=== PATIENT | male | born 1940 | race Caucasian/White ===

== ENCOUNTER 2022-04-10 09:47 | Outpatient (CLI) | payer MEDICARE, BC, SELFPAY ==
[2022-04-10 14:55] LABS: Chloride* 103 mmol/L (96-114); Potassium* 4.4 mmol/L (3.6-5.1); Sodium* 139 mmol/L (135-149)
[2022-04-10 14:58] LABS: Blood Urea Nitrogen* 17 mg/dL (7-30); Carbon Dioxide* 25 mmol/L (20-32); Creatinine* 1.1 mg/dL (0.5-1.5); Estimated Glomerular Filt Rate 67 ml/min; Glucose* 165 mg/dL (60-115)
[2022-04-10 15:28] LABS: PSA Diagnostic* < 0.06 ng/mL (0.10-4.00)
== END 2022-04-10 09:48 | disposition home or self-care (01) ==
PROVIDERS: PCP Family Medicine; Visit Provider Family Medicine
DX: E11.9 Type 2 diabetes mellitus without complications (principal); C61 Malignant neoplasm of prostate; I10 Essential (primary) hypertension
CPT/HCPCS: 80048; 84153

== ENCOUNTER 2022-08-02 17:32 | Inpatient (IN) | payer MEDICARE, BC, SELFPAY ==
[2022-08-02 17:47] VITALS: BP 142/78; PULSE 104; RESP 16; TEMP 36.9; O2SAT 95; BMI 28.4
--- NOTE | 2022-08-02 18:09 | CRLHL7_ITS ---
For Patients: As a result of the Century Cures Act, medical imaging exams and procedure reports are released immediately into your electronic medical record. You may view this report before your referring provider. If you have questions, please contact your health care provider. INDICATION: Diffuse abdominal pain. TECHNIQUE: CT abdomen and pelvis without contrast. COMPARISON: January 24, 2019. FINDINGS: Lower chest: Right basilar granuloma. Scattered dependent atelectasis. Partial visualization of coronary artery calcifications. Liver: Normal in size and attenuation. No suspicious masses. Gallbladder and bile ducts: Cholecystectomy. Pancreas: Splenic calcifications. No mass or inflammation. Spleen: Normal in size. No masses. Adrenal glands: Normal in size. No nodules. Kidneys: Normal in size. No suspicious masses, stones, or hydronephrosis. GI tract: Focal dilated loops of small bowel in the left upper quadrant, without definite transition point. Colonic diverticulosis without diverticulitis. Vasculature: Moderate aortoiliac arterial calcifications. Abdominal aorta is normal in caliber. Lymph nodes: No lymphadenopathy. Peritoneum/Abdominal Wall: Unremarkable. No sign of mass or infiltration. No free air or significant free fluid. Pelvis: Prostatectomy. Mildly distended bladder. Bones: Degenerative changes of the osseous structures, including the spine. IMPRESSION: Focal dilated loops of small bowel in the left upper quadrant, which may represent low greater developing partial small bowel obstruction. No pneumatosis or free intraperitoneal air. Please note that all CT scans at this facility use dose modulation, iterative reconstruction, and/or weight-based dosing when appropriate to reduce radiation dose to as low as reasonably achievable. Dictated by Shashank Khoury MD @ 08/02/2022 6:59:05 PM (Electronically Signed)
--- NOTE | 2022-08-02 18:11 | ED_ITS ---
HPI - General Adult General Chief complaint: Nausea/Vomiting Stated complaint: Vomiting since yesterday Time Seen by Provider: 08/02/22 17:51 Source: patient Mode of arrival: ambulatory Limitations: no limitations History of Present Illness HPI narrative: 82 year male coming in today complaining of vomiting abdominal discomfort that started yesterday. He states that he had leftovers for lunch and started feeling not well after that. Diffuse abdominal discomfort started in the afternoon. He denies any fevers or chills. He went to bed that night at around 2:00 a.m. in the morning had to get up and vomit. He had 1 small bowel movement at that time as well. This morning he vomited 2 more times and this afternoon vomited again. He has not had anything to eat today. He states that his vomitus is dark brown in color and has a very strong odor. He had another small bowel movement today. States that he is passing gas. He states that the abdominal discomfort has subsided some. He denies any urinary frequency, urgency or dysuria. He denies any chest pain or shortness of breath. He does not feel bloated. Patient states he has had multiple intra-abdominal operations in the past including a cholecystectomy, appendectomy, hernia repair, abdominal prostatectomy and lysis of adhesions which were causing bowel obstructions. Related Data Home Medications Medication Instructions Recorded Confirmed fluorouracil 5 % topical cream 1 applic topical .COMPLEX 03/14/22 08/02/22 atenolol 50 mg-chlorthalidone 25 1 tab PO DAILY 04/10/22 08/02/22 mg tablet cholecalciferol (vitamin D3) 25 25 mcg PO DAILY 04/10/22 08/02/22 mcg (1,000 unit) tablet eszopiclone 2 mg tablet 2 mg PO .Bedtime as needed PRN 04/10/22 08/02/22 ibuprofen-diphenhydramine citrate 2 cap PO .Bedtime as needed PRN 04/10/22 08/02/22 200 mg-38 mg tablet lidocaine 5 % topical patch 5 patch topical .Daily as needed 04/10/22 08/02/22 PRN losartan 100 mg tablet 100 mg PO DAILY 04/10/22 08/02/22 magnesium oxide 400 mg (241.3 mg 400 mg PO .2 X Week 04/10/22 08/02/22 magnesium) tablet melatonin 5 mg tablet 5 mg PO HS PRN 04/10/22 08/03/22 metformin 500 mg tablet,extended 500 mg PO .DAILYWM 04/10/22 08/03/22 release 24 hr multivitamin 1 tab PO DAILY 04/10/22 08/03/22 simvastatin 20 mg tablet 20 mg PO HS 04/10/22 08/03/22 amlodipine 2.5 mg tablet 2.5 mg PO HS 08/03/22 08/03/22 chlorpromazine 25 mg tablet 25 - 50 mg PO Q6H PRN 08/03/22 08/03/22 insulin glargine 100 unit/mL (3 58 - 65 unit subcut HS 08/03/22 08/03/22 mL) subcutaneous pen Previous Rx's Medication Instructions Recorded blood sugar diagnostic (Accu-Chek #100 ea 07/18/22 Guide test strips) Allergies Allergy/AdvReac Type Severity Reaction Status Date / Time Cat hair extract Allergy Unknown Uncoded 04/10/22 09:20 Review of Systems Status of ROS: Reports: 10 or more systems reviewed and unremarkable except as noted in History and below PFSH [facility] Medical History History of basal cell carcinoma (BCC) (2016) History of malignant melanoma (1987) History of Mohs micrographic surgery for skin cancer History of squamous cell carcinoma Surgical History (Updated 08/03/22 @ 21:38 by Bolivar Feliz MD) History of abdominal prostatectomy (12/07/09) History of appendectomy History of arthroscopy of left knee (12/10/13) History of bunionectomy of left great toe (09/05/11) History of cataract extraction History of cholecystectomy (06/09/04) History of colectomy History of hernia repair (08/15/92) History of tonsillectomy Family History Mother Malignant melanoma Social History Narrative: Gastroenteritis Highest level of school completed/degree received: Bachelor's degree Smoking Status: Never smoker How often do you have a drink containing alcohol: 2-3 times a week Alcohol type: wine Alcohol type details: 1 glass of wine 2 times a week How many standard drinks containing alcohol do you have on a typical day: 1 or 2 AUDIT-C Alcohol total score: 3 Non-prescribed substance use: denies use Caffeine: Yes (coffee) service: No Exam Narrative: Exam Narrative: Well-nourished well-developed patient in no acute distress. Alert and oriented. Answers questions appropriately. Mood and affect are appropriate. Thoughts are goal oriented and rational. No tangential or magical thinking noted. Patient speaks in full sentences without needing to catch their breath. HEENT: Normocephalic atraumatic. Pupils are equally round reactive to light. Extraocular muscles are intact. Conjunctivae are moist without any icterus noted. Slightly dry mucous membranes. Posterior pharynx is normal. Neck is soft without any lymphadenopathy or thyromegaly. No masses are appreciated. Cardiovascular: Heart is regular rate and rhythm S1 and S2 are present without any murmurs. Lungs: Clear to auscultation bilaterally no wheezes rhonchi or rales are appreciated. Patient takes deep breaths without any discomfort. Abdomen: Soft and protuberant with normal bowel sounds. No guarding or rebound tenderness. He has very mild diffuse tenderness that does not localize. Extremities: Bilateral lower extremities are without edema. Normal DP and PT pulses. Skin: Well perfused without any obvious rashes. Const: Vital Signs, click to edit/add: Vital Signs - 24 hr 08/02/22 17:47 Temperature 98.4 F Pulse Rate [Pulse Oximeter] 104 H Respiratory Rate 16 Blood Pressure [Ri ght Upper Arm] 142/78 H Pulse Oximetry 95 Oxygen Delivery Me thod Room Air Course Course Hospital Course: IV was established and IV fluids were initiated. Abdominal CT was ordered showing partial small bowel obstruction. Labs pending. Consulted Dr. Hernandez recommended an NG tube. We also called all available hospitals to find a bed for him and there are no open beds. Therefore patient will remain in the ER until further notice. Care transferred to oncoming physician. Vital Signs Vital signs: Initial Vital Signs Temperature 98.4 F 08/02/22 17:47 Temperature Source Temporal Artery Scan 08/02/22 17:47 Pulse Rate 104 H 08/02/22 17:47 Respiratory Rate 16 08/02/22 17:47 Blood Pressure 142/78 H 08/02/22 17:47 Blood Pressure Mean 99 08/02/22 17:47 Blood Pressure Position Sitting 08/02/22 17:47 Pulse Oximetry 95 08/02/22 17:47 Oxygen Delivery Method 08/02/22 17:47 Vital Signs Temperature 98.4 F 08/02/22 17:47 Pulse Rate 104 H 08/02/22 17:47 Respiratory Rate 16 08/02/22 17:47 Blood Pressure 142/78 H 08/02/22 17:47 Pulse Oximetry 95 08/02/22 17:47 Oxygen Delivery Method 08/02/22 17:47 Temperature 98.3 F 08/05/22 03:00 Pulse Rate 69 08/05/22 03:00 Respiratory Rate 20 08/05/22 03:00 Blood Pressure 142/61 H 08/05/22 03:00 Pulse Oximetry 94 08/05/22 03:00 Oxygen Delivery Method 08/05/22 03:00 Medical Decision Making Lab Data Labs: Lab Results 08/02/22 08/02/22 08/02/22 Range/Units 18:09 18:30 18:30 WBC 16.73 H (4.50-11.00) K/uL RBC 5.02 (4.30-5.90) m/uL Hgb 15.8 (13.5-17.5) gm/dL Hct 46.1 (37.0-53.0) % MCV 92 (80-100) fL MCH 32 (26-34) pg MCHC 34 (32-36) gm/dL RDW Coeff of Javier 12.7 (11.5-15.5) % Plt Count 340 (140-440) K/uL Neut % (Auto) 85.0 H (42.0-72.0) % Lymph % (Auto) 7.3 L (20-44) % [place] % (Auto) 7.5 (0.0-11.0) % Eos % (Auto) 0.0 (0.0-7.0) % Baso % (Auto) 0.1 (0.0-3.0) % Neut # (Auto) 14.20 H (1.7-7.0) K/uL Lymph # (Auto) 1.20 (0.90-2.90) K/uL [place] # (Auto) 1.30 H (0.00-0.90) K/UL Eos # (Auto) 0.00 (0.00-0.50) K/uL Baso # (Auto) 0.00 (0.00-0.30) K/uL Abs Immat Gran (auto) 0.00 (0.00-0.30) K/uL Imm/Tot Granulo (auto) 0.1 % ESR (2-15) mm/hr Sodium 139 (135-149) mmol/L Potassium 4.1 (3.6-5.1) mmol/L Chloride 103 (96-114) mmol/L Carbon Dioxide 24 (20-32) mmol/L BUN 24 (7-30) mg/dL Creatinine 1.1 (0.5-1.5) mg/dL Estimated Creat Clear 58.51 Estimated GFR 67 ml/min Glucose 220 H (60-115) mg/dL Lactate (0.5-1.9) mmol/L Calcium 9.0 (8.4-10.6) mg/dL Total Bilirubin (0.1-1.5) mg/dL Direct Bilirubin (0.0-0.5) mg/dL AST (12-35) U/L ALT (4-50) U/L Alkaline Phosphatase (40-150) U/L Troponin I (0.01-0.04) ng/mL C-Reactive Protein 0.6 (0.5-1.0) mg/dL Total Protein (6.0-8.3) g/dL Albumin (3.3-5.0) g/dL Lipase (23-300) U/L Urine Color (Yellow) Urine Appearance (Clear) Urine pH (5.0-8.5) Ur Specific [place] (1.000-1.030) Urine Protein (Negative) Urine Glucose (UA) (Negative) Urine Ketones (Negative) Urine Blood (Negative) Urine Nitrite (Negative) Urine Bilirubin (Negative) Urine Urobilinogen (0.2-1.0) Ur Leukocyte Esterase (Negative) Urine RBC (0-2) Urine WBC (0-5) Ur Squamous Epith Cells (None-Few) Urine Bacteria (None) SARS-CoV-2 (PCR) Negative SARS-CoV-2 (Negative) 08/02/22 08/02/22 08/02/22 Range/Units 18:30 18:30 18:30 WBC (4.50-11.00) K/uL RBC (4.30-5.90) m/uL Hgb (13.5-17.5) gm/dL Hct (37.0-53.0) % MCV (80-100) fL MCH (26-34) pg MCHC (32-36) gm/dL RDW Coeff of Javier (11.5-15.5) % Plt Count (140-440) K/uL Neut % (Auto) (42.0-72.0) % Lymph % (Auto) (20-44) % [place] % (Auto) (0.0-11.0) % Eos % (Auto) (0.0-7.0) % Baso % (Auto) (0.0-3.0) % Neut # (Auto) (1.7-7.0) K/uL Lymph # (Auto) (0.90-2.90) K/uL [place] # (Auto) (0.00-0.90) K/UL Eos # (Auto) (0.00-0.50) K/uL Baso # (Auto) (0.00-0.30) K/uL Abs Immat Gran (auto) (0.00-0.30) K/uL Imm/Tot Granulo (auto) % ESR 7 (2-15) mm/hr Sodium (135-149) mmol/L Potassium (3.6-5.1) mmol/L Chloride (96-114) mmol/L Carbon Dioxide (20-32) mmol/L BUN (7-30) mg/dL Creatinine (0.5-1.5) mg/dL Estimated Creat Clear Estimated GFR ml/min Glucose (60-115) mg/dL Lactate 4.0 H (0.5-1.9) mmol/L Calcium (8.4-10.6) mg/dL Total Bilirubin 1.3 (0.1-1.5) mg/dL Direct Bilirubin 0.0 (0.0-0.5) mg/dL AST 38 H (12-35) U/L ALT 40 (4-50) U/L Alkaline Phosphatase 69 (40-150) U/L Troponin I 0.02 (0.01-0.04) ng/mL C-Reactive Protein (0.5-1.0) mg/dL Total Protein 7.2 (6.0-8.3) g/dL Albumin 4.4 (3.3-5.0) g/dL Lipase 42 (23-300) U/L Urine Color (Yellow) Urine Appearance (Clear) Urine pH (5.0-8.5) Ur Specific [place] (1.000-1.030) Urine Protein (Negative) Urine Glucose (UA) (Negative) Urine Ketones (Negative) Urine Blood (Negative) Urine Nitrite (Negative) Urine Bilirubin (Negative) Urine Urobilinogen (0.2-1.0) Ur Leukocyte Esterase (Negative) Urine RBC (0-2) Urine WBC (0-5) Ur Squamous Epith Cells (None-Few) Urine Bacteria (None) SARS-CoV-2 (PCR) (Negative) 08/03/22 08/03/22 08/03/22 Range/Units 01:50 06:14 06:14 WBC 13.27 H (4.50-11.00) K/uL RBC 4.67 (4.30-5.90) m/uL Hgb 14.6 (13.5-17.5) gm/dL Hct 43.8 (37.0-53.0) % MCV 94 (80-100) fL MCH 31 (26-34) pg MCHC 33 (32-36) gm/dL RDW Coeff of Javier 12.9 (11.5-15.5) % Plt Count 310 (140-440) K/uL Neut % (Auto) 74.0 H (42.0-72.0) % Lymph % (Auto) 14.5 L (20-44) % [place] % (Auto) 10.6 (0.0-11.0) % Eos % (Auto) 0.5 (0.0-7.0) % Baso % (Auto) 0.2 (0.0-3.0) % Neut # (Auto) 9.80 H (1.7-7.0) K/uL Lymph # (Auto) 1.90 (0.90-2.90) K/uL [place] # (Auto) 1.40 H (0.00-0.90) K/UL Eos # (Auto) 0.10 (0.00-0.50) K/uL Baso # (Auto) 0.00 (0.00-0.30) K/uL Abs Immat Gran (auto) 0.00 (0.00-0.30) K/uL Imm/Tot Granulo (auto) 0.2 % ESR (2-15) mm/hr Sodium 141 (135-149) mmol/L Potassium 4.1 (3.6-5.1) mmol/L Chloride 107 (96-114) mmol/L Carbon Dioxide 24 (20-32) mmol/L BUN 23 (7-30) mg/dL Creatinine 1.1 (0.5-1.5) mg/dL Estimated Creat Clear 58.51 Estimated GFR 67 ml/min Glucose 173 H (60-115) mg/dL Lactate (0.5-1.9) mmol/L Calcium 8.9 (8.4-10.6) mg/dL Total Bilirubin (0.1-1.5) mg/dL Direct Bilirubin (0.0-0.5) mg/dL AST (12-35) U/L ALT (4-50) U/L Alkaline Phosphatase (40-150) U/L Troponin I (0.01-0.04) ng/mL C-Reactive Protein (0.5-1.0) mg/dL Total Protein (6.0-8.3) g/dL Albumin (3.3-5.0) g/dL Lipase (23-300) U/L Urine Color Yellow (Yellow) Urine Appearance Clear (Clear) Urine pH 5.5 (5.0-8.5) Ur Specific [place] 1.025 (1.000-1.030) Urine Protein 1+ A (Negative) Urine Glucose (UA) Negative (Negative) Urine Ketones 1+ A (Negative) Urine Blood Negative (Negative) Urine Nitrite Negative (Negative) Urine Bilirubin Negative (Negative) Urine Urobilinogen 0.2 (0.2-1.0) Ur Leukocyte Esterase Negative (Negative) Urine RBC 0-2 (0-2) Urine WBC 0-2 (0-5) Ur Squamous Epith Cells None (None-Few) Urine Bacteria Few A (None) SARS-CoV-2 (PCR) (Negative) 08/03/22 Range/Units 06:14 WBC (4.50-11.00) K/uL RBC (4.30-5.90) m/uL Hgb (13.5-17.5) gm/dL Hct (37.0-53.0) % MCV (80-100) fL MCH (26-34) pg MCHC (32-36) gm/dL RDW Coeff of Javier (11.5-15.5) % Plt Count (140-440) K/uL Neut % (Auto) (42.0-72.0) % Lymph % (Auto) (20-44) % [place] % (Auto) (0.0-11.0) % Eos % (Auto) (0.0-7.0) % Baso % (Auto) (0.0-3.0) % Neut # (Auto) (1.7-7.0) K/uL Lymph # (Auto) (0.90-2.90) K/uL [place] # (Auto) (0.00-0.90) K/UL Eos # (Auto) (0.00-0.50) K/uL Baso # (Auto) (0.00-0.30) K/uL Abs Immat Gran (auto) (0.00-0.30) K/uL Imm/Tot Granulo (auto) % ESR (2-15) mm/hr Sodium (135-149) mmol/L Potassium (3.6-5.1) mmol/L Chloride (96-114) mmol/L Carbon Dioxide (20-32) mmol/L BUN (7-30) mg/dL Creatinine (0.5-1.5) mg/dL Estimated Creat Clear Estimated GFR ml/min Glucose (60-115) mg/dL Lactate 2.2 H (0.5-1.9) mmol/L Calcium (8.4-10.6) mg/dL Total Bilirubin (0.1-1.5) mg/dL Direct Bilirubin (0.0-0.5) mg/dL AST (12-35) U/L ALT (4-50) U/L Alkaline Phosphatase (40-150) U/L Troponin I (0.01-0.04) ng/mL C-Reactive Protein (0.5-1.0) mg/dL Total Protein (6.0-8.3) g/dL Albumin (3.3-5.0) g/dL Lipase (23-300) U/L Urine Color (Yellow) Urine Appearance (Clear) Urine pH (5.0-8.5) Ur Specific [place] (1.000-1.030) Urine Protein (Negative) Urine Glucose (UA) (Negative) Urine Ketones (Negative) Urine Blood (Negative) Urine Nitrite (Negative) Urine Bilirubin (Negative) Urine Urobilinogen (0.2-1.0) Ur Leukocyte Esterase (Negative) Urine RBC (0-2) Urine WBC (0-5) Ur Squamous Epith Cells (None-Few) Urine Bacteria (None) SARS-CoV-2 (PCR) (Negative) Imaging Data CT scan - abdomen: Attestation: I have reviewed the pertinent imaging results. Radiologist's impression: CT abdomen and pelvis without contrast. COMPARISON: January 24, 2019. FINDINGS: Lower chest: Right basilar granuloma. Scattered dependent atelectasis. Partial visualization of coronary artery calcifications. Liver: Normal in size and attenuation. No suspicious masses. Gallbladder and bile ducts: Cholecystectomy. Pancreas: Splenic calcifications. No mass or inflammation. Spleen: Normal in size. No masses. Adrenal glands: Normal in size. No nodules. Kidneys: Normal in size. No suspicious masses, stones, or hydronephrosis. GI tract: Focal dilated loops of small bowel in the left upper quadrant, without definite transition point. Colonic diverticulosis without diverticulitis. Vasculature: Moderate aortoiliac arterial calcifications. Abdominal aorta is normal in caliber. Lymph nodes: No lymphadenopathy. Peritoneum/Abdominal Wall: Unremarkable. No sign of mass or infiltration. No free air or significant free fluid. Pelvis: Prostatectomy. Mildly distended bladder. Bones: Degenerative changes of the osseous structures, including the spine. IMPRESSION: Focal dilated loops of small bowel in the left upper quadrant, which may represent low greater developing partial small bowel obstruction. No pneumatosis or free intraperitoneal air. Discharge Plan Discharge Clinical Impression: Partial obstruction of small intestine Prescriptions: No Action simvastatin 20 mg tablet 20 mg PO HS losartan 100 mg tablet 100 mg PO DAILY eszopiclone 2 mg tablet 2 mg PO .Bedtime as needed PRN magnesium oxide 400 mg (241.3 mg magnesium) tablet 400 mg PO .2 X Week multivitamin Tablet 1 tab PO DAILY metformin 500 mg tablet extended release 24 hr 500 mg PO .DAILYWM atenolol-chlorthalidone 50-25 mg tablet 1 tab PO DAILY lidocaine 5 % adhesive patch,medicated 5 patch topical .Daily as needed PRN cholecalciferol (vitamin D3) 25 mcg (1,000 unit) tablet 25 mcg PO DAILY melatonin 5 mg tablet 5 mg PO HS PRN ibuprofen-diphenhydramine cit 200-38 mg tablet 2 cap PO .Bedtime as needed PRN amlodipine 2.5 mg tablet 2.5 mg PO HS Rx Instructions: take at night insulin glargine 100 unit/mL (3 mL) insulin pen 58 - 65 unit subcut HS chlorpromazine 25 mg tablet 25 - 50 mg PO Q6H PRN fluorouracil 5 % cream 1 applic topical .COMPLEX Rx Instructions: 1 applic topical twice a week; (DME) Accu-Chek Guide test strips Strip See Rx Instructions .Route Qty: 100 8RF Rx Instructions: Test blood sugar twice daily Follow Up/Referrals: Merrill Mejia MD [Primary Care Provider] -
[2022-08-02 18:49] LABS: Basophils Percent Auto 0.1 % (0.0-3.0); Hematocrit 46.1 % (37.0-53.0); Hemoglobin* 15.8 gm/dL (13.5-17.5); Immature Granulocytes Pct Auto 0.1 %; Lymphocytes Percent Auto 7.3 % (20-44); Mean Corpuscular HGB Conc 34 gm/dL (32-36); Mean Corpuscular Hemoglobin 32 pg (26-34); Mean Corpuscular Volume 92 fL (80-100); Monocytes Percent Auto 7.5 % (0.0-11.0); Platelet Count* 340 K/uL (140-440); RDW Coefficient of Variation % 12.7 % (11.5-15.5); Red Blood Count 5.02 m/uL (4.30-5.90); Slide Review Reflex No; White Blood Count* 16.73 K/uL (4.50-11.00)
[2022-08-02] MEDS: ONDANSETRON 2 MG/ML inj 4 MG IVP (18:53)
[2022-08-02] MEDS: 0.9 % SODIUM CHLORIDE 1000 ml 1,000 ML IV (18:53)
[2022-08-02 18:58] LABS: Albumin* 4.4 g/dL (3.3-5.0)
[2022-08-02 19:01] LABS: Alanine Aminotransferase* 40 U/L (4-50); Alkaline Phosphatase* 69 U/L (40-150); Aspartate Amino Transferase* 38 U/L (12-35); Bilirubin Total* 1.3 mg/dL (0.1-1.5); Lipase* 42 U/L (23-300); Total Protein* 7.2 g/dL (6.0-8.3)
[2022-08-02 19:13] LABS: Troponin I* 0.02 ng/mL (0.01-0.04)
[2022-08-02 19:48] LABS: Chloride* 103 mmol/L (96-114)
[2022-08-02 19:49] LABS: Potassium* 4.1 mmol/L (3.6-5.1); Sodium* 139 mmol/L (135-149)
[2022-08-02 19:49] LABS: SARS PCR* Negative SARS-CoV-2 (Negative)
[2022-08-02 19:51] LABS: Creatinine* 1.1 mg/dL (0.5-1.5); Est. Creatinine Clearance* 58.51; Estimated Glomerular Filt Rate 67 ml/min
[2022-08-02 19:52] LABS: Blood Urea Nitrogen* 24 mg/dL (7-30); Carbon Dioxide* 24 mmol/L (20-32); Glucose* 220 mg/dL (60-115)
[2022-08-02 19:55] LABS: C Reactive Protein* 0.6 mg/dL (0.5-1.0)
[2022-08-02 20:43] LABS: Erythrocyte SedimentationRate* 7 mm/hr (2-15)
--- NOTE | 2022-08-02 21:23 | ED.NURSE ---
Patient refuses NG insertion at this time. Reports previous bad experiences with them before. Patient also inquired about home lantus. Took FSG and is 178, MD does not want to dose with insulin at this time.
[2022-08-03] VITALS (9 sets, daily range): BP systolic 113–168; BP diastolic 51–93; PULSE 68–96; RESP 16–20; TEMP 36.6–37; O2SAT 94–98; BMI 28.6
--- NOTE | 2022-08-03 01:53 | ED.NURSE ---
report to med surg, pt transported via [facility] to [facility]
[2022-08-03 02:09] LABS: Appearance Urine Clear (Clear); Bilirubin Urine Negative (Negative); Blood Urine Negative (Negative); Color Urine Yellow (Yellow); Glucose Urine Negative (Negative); Ketones Urine 1+ (Negative); Leukocyte Esterase Urine Negative (Negative); Nitrite Urine Negative (Negative); Protein Urine 1+ (Negative); Specific Gravity Urine 1.025 (1.000-1.030); Urobilinogen Urine 0.2 (0.2-1.0); pH Urine 5.5 (5.0-8.5)
[2022-08-03 02:56] LABS: Bacteria Urine Few; RBC Urine 0-2 (0-2); WBC Urine 0-2 (0-5)
--- NOTE | 2022-08-03 02:59 | PM.IMCN1 ---
Date of Consult Consult date: 08/03/22 Primary Care Provider: Merrill Mejia MD Consult Narrative Narrative: [facility] Hospitalist ADMISSION SUPPORT NOTE eHospitalist was contacted by Dr. Rhoades with request of admission support. Chief complaint: Nausea, vomiting and abdominal pain HPI: The patient reports that on Saturday after he had lunch he got home that evening and then started having abdominal pain. He went to bed and then started having vomiting and nausea. He did have a bowel movement that evening. his vomiting continued and was intermittent throughout the day but was brown-colored. He called his PCPs office and staff suggested waiting to see if his symptoms improve or coming in for evaluation. He decided to come into the ED. He reports that his vomiting is improved and so was his abdominal pain which has been periumbilical. Review of systems other mention above is negative. Home Medications/Pertinent Medical History/Pertinent Social History: Reviewed see EMR for details PFSH PFS Medical History History of basal cell carcinoma (BCC) (2016) History of malignant melanoma (1987) History of Mohs micrographic surgery for skin cancer History of squamous cell carcinoma Surgical History History of abdominal prostatectomy (12/07/09) History of appendectomy History of arthroscopy of left knee (12/10/13) History of bunionectomy of left great toe (09/05/11) History of cataract extraction History of cholecystectomy (06/09/04) History of colectomy History of hernia repair (08/15/92) History of tonsillectomy Family History Mother Malignant melanoma Social History Narrative: Gastroenteritis Highest level of school completed/degree received: Bachelor's degree Smoking Status: Never smoker How often do you have a drink containing alcohol: 2-3 times a week Alcohol type: wine Alcohol type details: 1 glass of wine 2 times a week How many standard drinks containing alcohol do you have on a typical day: 1 or 2 AUDIT-C Alcohol total score: 3 Non-prescribed substance use: denies use Caffeine: Yes (coffee) service: No Meds Home Medications and Allergies Home Medications Medication Instructions Recorded Confirmed Type fluorouracil 5 % topical cream 1 applic topical .COMPLEX 03/14/22 08/02/22 History atenolol 50 mg-chlorthalidone 25 1 tab PO DAILY 04/10/22 08/02/22 History mg tablet cholecalciferol (vitamin D3) 25 25 mcg PO DAILY 04/10/22 08/02/22 History mcg (1,000 unit) tablet clindamycin phosphate 1 % lotion 1 applic topical PRN 04/10/22 04/10/22 History eszopiclone 2 mg tablet 2 mg PO .Bedtime as needed PRN 04/10/22 08/02/22 History ibuprofen-diphenhydramine citrate 2 cap PO .Bedtime as needed PRN 04/10/22 08/02/22 History 200 mg-38 mg tablet lidocaine 5 % topical patch 5 patch topical .Daily as needed 04/10/22 08/02/22 History PRN losartan 100 mg tablet 100 mg PO DAILY 04/10/22 08/02/22 History magnesium oxide 400 mg (241.3 mg 400 mg PO .2 X Week 04/10/22 08/02/22 History magnesium) tablet melatonin 5 mg tablet 5 mg PO .Bedtime as needed PRN 04/10/22 08/02/22 History metformin 500 mg tablet,extended 500 mg PO .Daily With Am Meal 04/10/22 08/02/22 History release 24 hr multivitamin 1 tab PO QDAY 04/10/22 08/02/22 History mupirocin 2 % topical ointment 1 applic topical PRN 04/10/22 04/10/22 History simvastatin 20 mg tablet 20 mg PO .Bedtime 04/10/22 08/02/22 History Allergies Allergy/AdvReac Type Severity Reaction Status Date / Time Cat hair extract Allergy Unknown Uncoded 04/10/22 09:20 Exam Narrative: Exam Narrative: Exam (performed via interactive video with assistance of bedside nurse): General: Alert, cooperative, no acute distress HEENT: Oral mucosa pink and moist without erythema Lungs: Clear to auscultation bilaterally without crackle or wheeze CV: Regular rate and rhythm without loud murmur rub or gallop Abd: Bowel sounds hypoactive, currently denies tenderness and does not exhibit signs of pain with palpation done by bedside nurse, soft, scars consistent with past surgical history Skin: No rashes, bruises or lesions appreciated on gross visualization of exposed skin Neuro: Alert, oriented x 3. CN III -VII, XI, XII grossly intact, moves all extremities without any significant focal deficit appreciated Const: Vital Signs, click to edit/add: Vital Signs - 24 hr 08/02/22 17:47 08/03/22 00:00 08/03/22 02:04 Temperature 98.4 F 98.6 F Pulse Rate [Pulse Oximeter] 104 H 94 Respiratory Rate 16 20 Blood Pressure [Le ft Arm] 168/93 H Blood Pressure [Ri ght Upper Arm] 142/78 H Pulse Oximetry 95 98 95 Oxygen Delivery Me thod Room Air Room Air Labs Labs: Short CBC 08/02/22 Range/Units 18:30 WBC 16.73 H (4.50-11.00) K/uL Hgb 15.8 (13.5-17.5) gm/dL Hct 46.1 (37.0-53.0) % Plt Count 340 (140-440) K/uL BMP 08/02/22 18:30 Sodium 139 Potassium 4.1 Chloride 103 Carbon Dioxide 24 BUN 24 Creatinine 1.1 Glucose 220 H Calcium 9.0 Cardiac Enzymes 08/02/22 Range/Units 18:30 Troponin I 0.02 (0.01-0.04) ng/mL Liver Function 08/02/22 Range/Units 18:30 Total Bilirubin 1.3 (0.1-1.5) mg/dL Direct Bilirubin 0.0 (0.0-0.5) mg/dL AST 38 H (12-35) U/L ALT 40 (4-50) U/L Alkaline Phosphatase 69 (40-150) U/L Albumin 4.4 (3.3-5.0) g/dL Urine 08/03/22 Range/Units 01:50 Urine Color Yellow (Yellow) Urine Appearance Clear (Clear) Urine pH 5.5 (5.0-8.5) Ur Specific [place] 1.025 (1.000-1.030) Urine Protein 1+ A (Negative) Urine Glucose (UA) Negative (Negative) Assessment and Plan Assessment and plan (1) Partial obstruction of small intestine: Status: Acute Plan CT scan of abdomen and pelvis: Reviewed see EMR for details Assessment and Plan: 1. Partial small bowel obstruction-supportive care. Patient refused NG tube. I counseled that if his abdominal pain worsens or he develops nausea and vomiting again then he should have NG tube placed at that time. Pain control with fentanyl. 2. Leukocytosis-May be secondary to stress response. No signs or symptoms of active infection. Monitor 3. DM2-sliding scale insulin. Depending on glucose level although n.p.o. he may require some basal long-acting insulin. Will leave for rounding provider to initiate. 4. Elevated lactic acid-trend. Continue IV fluids 5. Hypertension-stable continue atenolol, losartan and amlodipine. Hold chlorthalidone given nausea and vomiting 6. Dyslipidemia-stable on statin 7. DVT prophylaxis-Lovenox 8. CODE STATUS full code discussed with patient Chart review was performed as well as evaluation of the patient via video. Thank you for involving ehospitalist. Please contact [phone] if further assistance is needed.
[2022-08-03] MEDS: 0.9 % SODIUM CHLORIDE 1000 ml 1,000 ML 75 ML IV ×2 (03:49→17:48)
--- NOTE | 2022-08-03 05:10 | PC.NURSE ---
after admission Pt slept remainder of night, rated abdomenal pain 2/10, denies N/V at this time. Pt asking the same questions throughout admission multiple times, and questions answered multiple times.
[2022-08-03 06:45] LABS: Lactate* 2.2 mmol/L (0.5-1.9)
[2022-08-03 06:47] LABS: Basophils Percent Auto 0.2 % (0.0-3.0); Eosinophils Percent Auto 0.5 % (0.0-7.0); Hematocrit 43.8 % (37.0-53.0); Hemoglobin* 14.6 gm/dL (13.5-17.5); Immature Granulocytes Pct Auto 0.2 %; Lymphocytes Percent Auto 14.5 % (20-44); Mean Corpuscular HGB Conc 33 gm/dL (32-36); Mean Corpuscular Hemoglobin 31 pg (26-34); Mean Corpuscular Volume 94 fL (80-100); Monocytes Percent Auto 10.6 % (0.0-11.0); Platelet Count* 310 K/uL (140-440); RDW Coefficient of Variation % 12.9 % (11.5-15.5); Red Blood Count 4.67 m/uL (4.30-5.90); White Blood Count* 13.27 K/uL (4.50-11.00)
[2022-08-03 06:53] LABS: Slide Review Reflex No
[2022-08-03 07:04] LABS: Chloride* 107 mmol/L (96-114); Potassium* 4.1 mmol/L (3.6-5.1); Sodium* 141 mmol/L (135-149)
[2022-08-03 07:07] LABS: Blood Urea Nitrogen* 23 mg/dL (7-30); Calcium* 8.9 mg/dL (8.4-10.6); Carbon Dioxide* 24 mmol/L (20-32); Creatinine* 1.1 mg/dL (0.5-1.5); Est. Creatinine Clearance* 58.51; Estimated Glomerular Filt Rate 67 ml/min; Glucose* 173 mg/dL (60-115)
--- NOTE | 2022-08-03 07:23 | PC.NURSE ---
[id number] Per pt request, please update Yessenia ([phone]) that pt is now on M/S floor, attempted to call this a.m. no answer.
[2022-08-03] MEDS: LOSARTAN POTASSIUM 50 MG TABLET 100 MG PO (08:51)
[2022-08-03] MEDS: atenoloL 50 MG TABLET PO (08:52)
--- NOTE | 2022-08-03 18:55 | PC.NURSE ---
Nursing Care Hours: [id number] Pt this shift calm and cooperative with cares. No c/o pain or nausea. Tolerating small amounts of ice chips. Walked the [place] x2. Void x3, passing gas per pt report, and no BM. Alert and oriented but at times forgetful of what nurse explained is happening next, ie: vital signs or blood glucose check.
[2022-08-03] MEDS: AMLODIPINE 5 MG TABLET 2.5 MG PO (20:15)
[2022-08-03] MEDS: SIMVASTATIN 20 MG TABLET PO (20:15)
--- NOTE | 2022-08-03 21:26 | P.IMHP_ITS ---
Hospitalist- H&P: HPI History of Present Illness Time Seen by Provider: 15:00 Date Seen: 08/03/22 Chief complaint: Vomiting since yesterday Narrative: Ilan Alaniz is a 82 year old man who presented to the emergency department with the greater than 24 hour history of nausea, vomiting, and abdominal pain. Last bowel movement was 2 nights ago. He continued to have brown colored vomitus. Denies hematemesis or coffee-ground emesis. On assessment in the emergency department was found to have a small-bowel obstruction. As a youngster he had multiple small-bowel obstructions. At 1 point he believes he may have had a partial colectomy in association with the same. Since then he has had a few episodes of small-bowel obstructions since. The more recent episodes have resolved without any surgical intervention. Review of Systems Status of ROS: Reports: 10 or more systems reviewed and unremarkable except as noted in History and below Narrative: Denies chest heaviness, pressure, tightness, or pain. Denies dyspnea at rest, dyspnea with exertion, paroxysmal nocturnal dyspnea, or orthopnea. Denies syncope or near-syncope. Since admission to the hospital and treatment with IV fluids analgesics antiemetics his conditions gradually improved. Not tolerating ambulating the halls. Before he was too weak to be able to do so. Denies focal motor neurologic deficits. No recent trauma or injury. No recent travel. No other febrile illnesses. [facility] Medical History History of basal cell carcinoma (BCC) (2016) History of malignant melanoma (1987) History of Mohs micrographic surgery for skin cancer History of squamous cell carcinoma Surgical History (Updated 08/03/22 @ 21:38 by Bolivar Feliz MD) History of abdominal prostatectomy (12/07/09) History of appendectomy History of arthroscopy of left knee (12/10/13) History of bunionectomy of left great toe (09/05/11) History of cataract extraction History of cholecystectomy (06/09/04) History of colectomy History of hernia repair (08/15/92) History of tonsillectomy Family History Mother Malignant melanoma Social History Narrative: Gastroenteritis Highest level of school completed/degree received: Bachelor's degree Smoking Status: Never smoker How often do you have a drink containing alcohol: 2-3 times a week Alcohol type: wine Alcohol type details: 1 glass of wine 2 times a week How many standard drinks containing alcohol do you have on a typical day: 1 or 2 AUDIT-C Alcohol total score: 3 Non-prescribed substance use: denies use Caffeine: Yes (coffee) service: No Meds Home Medications and Allergies Home Medications Medication Instructions Recorded Confirmed Type fluorouracil 5 % topical cream 1 applic topical .COMPLEX 03/14/22 08/02/22 History atenolol 50 mg-chlorthalidone 25 1 tab PO DAILY 04/10/22 08/02/22 History mg tablet cholecalciferol (vitamin D3) 25 25 mcg PO DAILY 04/10/22 08/02/22 History mcg (1,000 unit) tablet eszopiclone 2 mg tablet 2 mg PO .Bedtime as needed PRN 04/10/22 08/02/22 History ibuprofen-diphenhydramine citrate 2 cap PO .Bedtime as needed PRN 04/10/22 08/02/22 History 200 mg-38 mg tablet lidocaine 5 % topical patch 5 patch topical .Daily as needed 04/10/22 08/02/22 History PRN losartan 100 mg tablet 100 mg PO DAILY 04/10/22 08/02/22 History magnesium oxide 400 mg (241.3 mg 400 mg PO .2 X Week 04/10/22 08/02/22 History magnesium) tablet melatonin 5 mg tablet 5 mg PO HS PRN 04/10/22 08/03/22 History metformin 500 mg tablet,extended 500 mg PO .DAILYWM 04/10/22 08/03/22 History release 24 hr multivitamin 1 tab PO DAILY 04/10/22 08/03/22 History simvastatin 20 mg tablet 20 mg PO HS 04/10/22 08/03/22 History amlodipine 2.5 mg tablet 2.5 mg PO HS 08/03/22 08/03/22 History chlorpromazine 25 mg tablet 25 - 50 mg PO Q6H PRN 08/03/22 08/03/22 History insulin glargine 100 unit/mL (3 58 - 65 unit subcut HS 08/03/22 08/03/22 History mL) subcutaneous pen Allergies Allergy/AdvReac Type Severity Reaction Status Date / Time Cat hair extract Allergy Unknown Uncoded 04/10/22 09:20 Exam Narrative: Exam Narrative: My 1st walk in his room to see him he is sound asleep on his bed. He is easily arouse with my touching his leg in calling his name out. Appears comfortable and in no acute distress. Articulate, cooperative. Friendly. Alert, oriented to self, place, time, situation. Very hard of hearing. This is not new. Moist buccal mucosa. No icterus. Neck is supple. Midline trachea. Normal thyroid. No lymphadenopathy. No JVD or hepatojugular reflux. No carotid bruits. Lungs are clear to auscultation. Heart tones with regular rhythm, normal S1-S2. Abdomen still somewhat distended with active bowel sounds though. Soft, nontender. Extremities without edema. Transfers independently, slowly. Independent with walking. Walks slowly. Const: Vital Signs, click to edit/add: Vital Signs - 24 hr 08/03/22 00:00 08/03/22 02:04 08/03/22 03:00 Temperature 98.6 F 98.6 F Pulse Rate [Pulse Oximeter] 94 94 Respiratory Rate 20 20 Blood Pressure [Le ft Arm] 168/93 H 168/93 H Blood Pressure [Ri ght Arm] Pulse Oximetry 98 95 95 Oxygen Delivery Me thod Room Air Room Air 08/03/22 07:00 08/03/22 07:00 08/03/22 11:00 Temperature 97.9 F 98.6 F Pulse Rate [Pulse Oximeter] 96 96 94 Respiratory Rate 18 18 18 Blood Pressure [Le ft Arm] 119/74 154/83 H Blood Pressure [Ri ght Arm] Pulse Oximetry 96 94 Oxygen Delivery Me thod Room Air Room Air 08/03/22 15:00 08/03/22 15:00 08/03/22 19:00 Temperature 98.6 F 98 F Pulse Rate [Pulse Oximeter] 94 94 72 Respiratory Rate 18 18 16 Blood Pressure [Le ft Arm] 127/65 Blood Pressure [Ri ght Arm] 154/83 H Pulse Oximetry 94 94 Oxygen Delivery Me thod Room Air Room Air Hospitalist - H&P: Result Labs Labs: Short CBC 12/02/22 Range/Units 06:14 WBC 13.27 H (4.50-11.00) K/uL Hgb 14.6 (13.5-17.5) gm/dL Hct 43.8 (37.0-53.0) % Plt Count 310 (140-440) K/uL [facility] 08/03/22 06:14 Sodium 141 Potassium 4.1 Chloride 107 Carbon Dioxide 24 BUN 23 Creatinine 1.1 Glucose 173 H Calcium 8.9 Urine 08/03/22 Range/Units 01:50 Urine Color Yellow (Yellow) Urine Appearance Clear (Clear) Urine pH 5.5 (5.0-8.5) Ur Specific [place] 1.025 (1.000-1.030) Urine Protein 1+ A (Negative) Urine Glucose (UA) Negative (Negative) Imaging CT scan - abdomen: Attestation: I have reviewed the pertinent imaging results. Radiologist's impression: Focal dilated loops of small bowel in the left upper quadrant, which may represent low greater developing partial small bowel obstruction. No pneumatosis or free intraperitoneal air. Assessment and Plan Assessment and plan (1) Partial obstruction of small intestine: Status: Acute (2) Partial small bowel obstruction: Status: Acute (3) History of abdominal prostatectomy: Status: Acute (4) History of appendectomy: Status: Acute (5) History of cholecystectomy: Status: Acute (6) History of colectomy: Status: Acute (7) History of hernia repair: Status: Acute Plan 1. Reviewed impression with patient and . Answered their questions. 2. Admit to the hospital. NPO except for ice chips for now. Advance diet as tolerated. 3. IV fluids, antiemetics p.r.n., analgesics p.r.n.. 4. Already showing signs of improvement. Consider surgical consultation if condition worsens. 5. Would benefit from dietary consultation. We do not have dietitian available for consultation over the weekend. If he is still in the hospital on Saturday will have the dietitian see him in the hospital otherwise in the outpatient setting. 6. Slowly resume his usual medications. 7. Encourage activity. 8. They are agreeable to above stated plans and recommendations.
[2022-08-04 03:00] VITALS: BP 158/73; PULSE 68; RESP 18; TEMP 36.7; O2SAT 94
[2022-08-04] MEDS: 0.9 % SODIUM CHLORIDE 1000 ml 1,000 ML 75 ML IV (05:58)
--- NOTE | 2022-08-04 06:56 | PC.NURSE ---
pleasant and cooperative. SBA to assist with IV pole. Tolerating ice chips. No c/o nausea. Passing flatus per pt. Bowel tones active.
[2022-08-04 07:00] VITALS: BP 147/70; PULSE 64; RESP 18; TEMP 36.7; O2SAT 94
[2022-08-04 07:00] LABS: HCO3 VBG 26 mmol/L (21-28); Lactate* 1.4 mmol/L (0.5-1.9); PCO2 VBG 43 mmHG (40-50); PO2 VBG 51.2 mmHG (25-47); pH VBG 7.392 (7.32-7.43)
[2022-08-04 07:10] LABS: Hemoglobin* 14.2 gm/dL (13.5-17.5); Mean Corpuscular HGB Conc 33 gm/dL (32-36); Mean Corpuscular Hemoglobin 31 pg (26-34); Mean Corpuscular Volume 95 fL (80-100); Platelet Count* 301 K/uL (140-440); Red Blood Count 4.53 m/uL (4.30-5.90); Slide Review Reflex No; White Blood Count* 9.06 K/uL (4.50-11.00)
[2022-08-04 07:27] LABS: Chloride* 111 mmol/L (96-114)
[2022-08-04 07:28] LABS: Albumin* 3.6 g/dL (3.3-5.0); Sodium* 142 mmol/L (135-149)
[2022-08-04 07:29] LABS: Potassium* 4.3 mmol/L (3.6-5.1)
[2022-08-04 07:30] LABS: Creatinine* 1.1 mg/dL (0.5-1.5); Est. Creatinine Clearance* 58.51; Estimated Glomerular Filt Rate 67 ml/min
[2022-08-04 07:31] LABS: Alanine Aminotransferase* 34 U/L (4-50); Alkaline Phosphatase* 54 U/L (40-150); Aspartate Amino Transferase* 33 U/L (12-35); Bilirubin Total* 1.3 mg/dL (0.1-1.5); Blood Urea Nitrogen* 23 mg/dL (7-30); Carbon Dioxide* 24 mmol/L (20-32); Glucose* 140 mg/dL (60-115); Phosphorus* 2.9 mg/dL (2.5-4.5); Total Protein* 6.2 g/dL (6.0-8.3)
[2022-08-04 07:32] LABS: Calcium* 8.2 mg/dL (8.4-10.6)
[2022-08-04] MEDS: atenoloL 50 MG TABLET PO (09:01)
[2022-08-04] MEDS: LOSARTAN POTASSIUM 50 MG TABLET 100 MG PO (09:02)
[2022-08-04 11:00] VITALS: BP 153/80; PULSE 62; RESP 18; O2SAT 96
[2022-08-04 15:00] VITALS: BP 134/64; PULSE 67; RESP 18; RESP 24; O2SAT 94
--- NOTE | 2022-08-04 17:19 | P.IMPN_ITS ---
Progress Note: A&P Assessment and plan (1) Partial obstruction of small intestine: Status: Acute (2) History of abdominal prostatectomy: Status: Acute (3) History of appendectomy: Status: Acute (4) History of cholecystectomy: Status: Acute (5) History of colectomy: Status: Acute (6) History of hernia repair: Status: Acute Assessment and Plan: 1. Reviewed impression with patient and . 2. Answered their questions. 3. Continue to advance diet as tolerated. 4. Continue to increase activity as tolerated. 5. If tolerates the above may consider possible discharge as early as tomorrow. 6. Patient agreeable to above stated plans and recommendations. Time Spent With Patient Total time spent: 40 minutes Subjective Time Seen by Provider: 14:00 Date Seen: 08/04/22 Interval history: 82-year-old man with recurrent partial small-bowel obstruction. History of partial small-bowel obstructions in the past. As a child he had a partial colectomy due to bowel obstruction. Details of this are not known. Presented with nausea, vomiting, abdominal pain. Found to have a partial small- bowel obstruction. Treated with conservative measures. Did not require the placement of an NG tube. Has been tolerating advance in diet. Tolerated a clear liquid diet this morning and soft diet this afternoon. Passing flatus and stool. Had a episode of loose stools this afternoon shortly after had a regular bowel movement. Tolerating increased activities. Denies lightheadedness. Abdominal pain is resolved. No further nausea or vomiting. Exam Narrative: Exam Narrative: Appears comfortable and in no acute distress. Chronic hearing deficit. Vision grossly normal. Alert and oriented to self, place, time, situation. Friendly, cooperative, articulate. Mood and affect are congruent. Lungs are clear to auscultation. Heart tones with regular rhythm. Abdomen with active bowel sounds, soft. Extremities without edema. Skin is warm, dry, intact. Independent transfer, station, and gait. No tremor, asterixis, or ataxia. Const: Vital Signs, click to edit/add: Vital Signs - 24 hr 08/03/22 19:00 08/03/22 22:28 08/03/22 23:00 Temperature 98 F 98.3 F Pulse Rate [Pulse Oximeter] 72 72 68 Respiratory Rate 16 16 18 Blood Pressure [Le ft Arm] 127/65 113/51 L Blood Pressure [Ri ght Arm] Pulse Oximetry 94 94 Oxygen Delivery Me thod Room Air Room Air 08/04/22 03:00 08/04/22 07:00 08/04/22 07:00 Temperature 98.1 F 98.1 F Pulse Rate [Pulse Oximeter] 68 64 64 Respiratory Rate 18 18 18 Blood Pressure [Le ft Arm] 158/73 H 147/70 H Blood Pressure [Ri ght Arm] Pulse Oximetry 94 94 Oxygen Delivery Me thod Room Air Room Air 08/04/22 11:00 08/04/22 15:00 08/04/22 15:00 Temperature Pulse Rate [Pulse Oximeter] 62 67 67 Respiratory Rate 18 18 24 Blood Pressure [Le ft Arm] 153/80 H Blood Pressure [Ri ght Arm] 134/64 Pulse Oximetry 96 94 Oxygen Delivery Me thod Room Air Room Air Labs Labs: Laboratory Results - last 24 hr 08/04/22 08/04/22 08/04/22 05:59 05:59 05:59 WBC 9.06 RBC 4.53 Hgb 14.2 Hct 43.0 MCV 95 MCH 31 MCHC 33 Plt Count 301 VBG pH 7.392 VBG pCO2 43 VBG pO2 51.2 H VBG HCO3 26 Sodium 142 Potassium 4.3 Chloride 111 Carbon Dioxide 24 BUN 23 Creatinine 1.1 Estimated Creat Clear 58.51 Estimated GFR 67 Glucose 140 H Lactate 1.4 Calcium 8.2 L Phosphorus 2.9 Magnesium 2.0 Total Bilirubin 1.3 AST 33 ALT 34 Alkaline Phosphatase 54 Total Protein 6.2 Albumin 3.6
--- NOTE | 2022-08-04 19:06 | PC.NURSE ---
Nursing Care Hours: [id number] Pt this shift calm and cooperative. Walked the halls x3 independently or with spouse. No c/o N/V, xs BM x2, Med x1, followed by 2 bouts of loose stool. Pt concerned and procedure writer educated on expected outcomes as bowels start to open up. MD advanced diet to from clears to regular-soft diet. Pt tolerating fluids and ordered regular dinner. Alert and oriented, pleasant and talkative.
[2022-08-04 20:15] VITALS: BP 127/72; PULSE 67; RESP 18; TEMP 36.8; O2SAT 97
[2022-08-04] MEDS: SIMVASTATIN 20 MG TABLET PO (20:27)
[2022-08-04] MEDS: AMLODIPINE 5 MG TABLET 2.5 MG PO (20:28)
[2022-08-04 23:00] VITALS: RESP 18
[2022-08-05 03:00] VITALS: BP 142/61; PULSE 69; RESP 20; TEMP 36.8; O2SAT 94
--- NOTE | 2022-08-05 05:35 | PC.NURSE ---
END OF SHIFT NOTE: PT IS PLEASANT AND COOPERATIVE WITH CARES. AMBULATES INDEPENDENTLY IN ROOM. VSS ON RA; AFEBRILE. LSCTA. PT HAS HAD SEVERAL PARTIALLY INCONTINENT LOOSE STOOLS WITH URGENCY. PT DENIES CP, SOB, N/V.
[2022-08-05 07:00] VITALS: BP 166/77; PULSE 66; RESP 18; TEMP 36.4; O2SAT 95
[2022-08-05] MEDS: LOSARTAN POTASSIUM 50 MG TABLET 100 MG PO (09:33)
[2022-08-05] MEDS: atenoloL 50 MG TABLET PO (09:33)
[2022-08-05 11:00] VITALS: BP 146/76; PULSE 72; RESP 18; TEMP 36.3; O2SAT 96
[2022-08-05 15:00] VITALS: BP 146/76; PULSE 72; RESP 18; TEMP 36.3
--- NOTE | 2022-08-05 15:13 | PC.NURSE ---
Nursing Care Hours: [id number] Pt this shift calm and cooperative. No c/o of pain or nausea. Still having urgent loose stools NOC and during assessment. Pt feeling anxious about going home with loose stools and wants to know how to move forward. Educated on disease process and expected outcomes. Educated on low fiber diet but to avoid dairy and greasy foods until loose stools have stopped. Ordered cream of wheat and tolerated well. Discharge instructions provided, questions and concerns answered, IV dc'd. Pt ambulated with chief underwriter out to spouses car in stable condition.
--- NOTE | 2022-08-05 17:02 | P.DS_ITS ---
DS: Providers Provider Time Seen by Provider: 12:00 Date Seen: 08/05/22 Date of admission: 08/03/22 17:56 Primary care physician: Merrill Mejia MD Admitting Clinician: Gil Rhoades MD Attending Physician on discharge: Bolivar Feliz MD Date of Discharge: 08/05/22 DS: Diagnosis Discharge Diagnosis (1) Partial obstruction of small intestine: Status: Acute (2) Partial small bowel obstruction: Status: Acute (3) History of abdominal prostatectomy: Status: Acute (4) History of appendectomy: Status: Acute (5) History of cholecystectomy: Status: Acute (6) History of colectomy: Status: Acute (7) History of hernia repair: Status: Acute DS: Summary Hospital Course Hospital Course: Ilan Alaniz is a 82 year old man who presented to the emergency department with the greater than 24 hour history of nausea, vomiting, and abdominal pain.? Last bowel movement was 2 nights ago.? He continued to have brown colored vomitus.? Denies hematemesis or coffee-ground emesis. On assessment in the emergency department was found to have a small-bowel obstruction.? As a youngster he had multiple small-bowel obstructions.? At 1 point he believes he may have had a partial colectomy in association with the same.? Since then he has had a few episodes of small-bowel obstructions.? The more recent episodes have resolved without any surgical intervention. While in the hospital he was managed with conservative measures only. He did not require nasogastric tube placement. Treated with IV fluids, NPO status, analgesics, antiemetics. We gradually increased his diet over time as he started to pass flatus and stool. He tolerated the increased diet. Developed flatus and then stool. Also had postobstructive diarrhea. The postobstructive diarrhea seemed to resolve while in hospital. Explained to him and his that this still may be problematic for a few more days. He has not had any antibiotics while in the hospital. Does not have a history of recent use of antibiotics. Status at Discharge Functional status at discharge: independent ambulation Time Spent with Patient Time attestation: Total time spent providing and/or coordinating discharge services: Exam Narrative: Exam Narrative: Appears comfortable and in no acute distress. Chronic hearing deficit. Vision grossly normal. Alert and oriented to self, place, time, situation.? Friendly, cooperative, articulate.? Mood and affect are congruent. Lungs are clear to auscultation.? Heart tones with regular rhythm.? Abdomen with active bowel sounds, soft. Extremities without edema.? Skin is warm, dry, intact.? Independent transfer, station, and gait.? No tremor, asterixis, or ataxia. Const: Vital Signs, click to edit/add: Vital Signs - 24 hr 08/04/22 20:15 08/04/22 23:00 08/05/22 03:00 Temperature 98.2 F 98.3 F Pulse Rate Pulse Rate [Pulse Oximeter] 67 69 Respiratory Rate 18 18 20 Blood Pressure Blood Pressure [Le ft Arm] 142/61 H Blood Pressure [Ri ght Arm] 127/72 Pulse Oximetry 97 94 Oxygen Delivery Me thod Room Air Room Air 08/05/22 07:00 08/05/22 07:00 08/05/22 11:00 Temperature 97.6 F 97.3 F L Pulse Rate Pulse Rate [Pulse Oximeter] 66 66 72 Respiratory Rate 18 18 18 Blood Pressure Blood Pressure [Le ft Arm] 166/77 H 146/76 H Blood Pressure [Ri ght Arm] Pulse Oximetry 95 96 Oxygen Delivery Me thod Room Air Room Air 08/05/22 15:00 Temperature 97.3 F L Pulse Rate 72 Pulse Rate [Pulse Oximeter] Respiratory Rate 18 Blood Pressure 146/76 H Blood Pressure [Le ft Arm] Blood Pressure [Ri ght Arm] Pulse Oximetry Oxygen Delivery Me thod DS: Data Imaging CT scan - abdomen: Attestation: I have reviewed the pertinent imaging results. Radiologist's impression: INDICATION: Diffuse abdominal pain. TECHNIQUE: CT abdomen and pelvis without contrast. COMPARISON: January 24, 2019. FINDINGS: Lower chest: Right basilar granuloma. Scattered dependent atelectasis. Partial visualization of coronary artery calcifications. Liver: Normal in size and attenuation. No suspicious masses. Gallbladder and bile ducts: Cholecystectomy. Pancreas: Splenic calcifications. No mass or inflammation. Spleen: Normal in size. No masses. Adrenal glands: Normal in size. No nodules. Kidneys: Normal in size. No suspicious masses, stones, or hydronephrosis. GI tract: Focal dilated loops of small bowel in the left upper quadrant, without definite transition point. Colonic diverticulosis without diverticulitis. Vasculature: Moderate aortoiliac arterial calcifications. Abdominal aorta is normal in caliber. Lymph nodes: No lymphadenopathy. Peritoneum/Abdominal Wall: Unremarkable. No sign of mass or infiltration. No free air or significant free fluid. Pelvis: Prostatectomy. Mildly distended bladder. Bones: Degenerative changes of the osseous structures, including the spine. IMPRESSION: Focal dilated loops of small bowel in the left upper quadrant, which may represent low greater developing partial small bowel obstruction. No pneumatosis or free intraperitoneal air. Discharge Plan Discharge Disposition: Home, Self-Care Date of Admission: 08/03/22 17:56 Attending Provider on Discharge: Bolivar Feliz Primary Care Provider: Merrill Mejia Condition: Improved Anticipated Discharge Date/Time: 08/05/22 14:00 Discharge Medications: Continued simvastatin 20 mg tablet 20 mg PO HS losartan 100 mg tablet 100 mg PO DAILY eszopiclone 2 mg tablet 2 mg PO .Bedtime as needed PRN magnesium oxide 400 mg (241.3 mg magnesium) tablet 400 mg PO .2 X Week multivitamin Tablet 1 tab PO DAILY metformin 500 mg tablet extended release 24 hr 500 mg PO .DAILYWM atenolol-chlorthalidone 50-25 mg tablet 1 tab PO DAILY lidocaine 5 % adhesive patch,medicated 5 patch topical .Daily as needed PRN cholecalciferol (vitamin D3) 25 mcg (1,000 unit) tablet 25 mcg PO DAILY melatonin 5 mg tablet 5 mg PO HS PRN ibuprofen-diphenhydramine cit 200-38 mg tablet 2 cap PO .Bedtime as needed PRN amlodipine 2.5 mg tablet 2.5 mg PO HS Rx Instructions: take at night insulin glargine 100 unit/mL (3 mL) insulin pen 58 - 65 unit subcut HS chlorpromazine 25 mg tablet 25 - 50 mg PO Q6H PRN fluorouracil 5 % cream 1 applic topical .COMPLEX Rx Instructions: 1 applic topical twice a week; No Action (DME) Accu-Chek Guide test strips Strip See Rx Instructions .Route Qty: 100 8RF Rx Instructions: Test blood sugar twice daily Discharge Orders: Discharge Order (Routine); Ordered 08/05/22 Ordered By: Bolivar Feliz Patient Education: High Fiber Diet (GEN), Low Fiber Diet (GEN), Bowel Obstruction (GEN) Additional Instructions: 1. Keep appointment with as already set up for 08/06/2022; 2. Appointment with [facility] Assistant Attorney General on either August or Saturday - optimize diet to minimize risk of future bowel obstruction, adequate fiber and hydration; 3. Adequate physical activity during the day, to keep gastrointestinal tract moving adequately; 4. No more than 1 alcoholic drink per day in effort to minimize risk for future bowel obstruction; 5. Return to clinic or hospital sooner if condition warrants. Activity Level: No Restrictions and Activity as Tolerated Discharge Diet: Low Fiber Diet Detail: Over next 4 weeks, gradually increase dietary fiber content per burring wheel operator instructions. Follow Up Appointments: Merrill Mejia MD [Primary Care Provider] - 08/06/22 1:45 pm (keep appointment as previously made for a post hospital visit with . please call and follow up with a dietitian through [facility] [place] the phone number for this office is [phone]) Forms: [employer] Info Instructions
== END 2022-08-05 14:20 | disposition home or self-care (01) | DRG 390 ==
LOC: ED 21:57 → MEDSURG 08-03 01:46
PROVIDERS: Internal Medicine; Admitting Provider Family Medicine; Emergency Provider Family Medicine; PCP Family Medicine; Visit Provider Internal Medicine
DX: K56.600 Partial intestinal obstruction, unspecified as to cause (principal); R19.7 Diarrhea, unspecified; D72.829 Elevated white blood cell count, unspecified; R74.02 Elevation of levels of lactic acid dehydrogenase [LDH]; E11.65 Type 2 diabetes mellitus with hyperglycemia; Z79.4 Long term (current) use of insulin; Z79.84 Long term (current) use of oral hypoglycemic drugs; I10 Essential (primary) hypertension; Z90.79 Acquired absence of other genital organ(s); Z90.49 Acquired absence of other specified parts of digestive tract; E78.5 Hyperlipidemia, unspecified; Z85.820 Personal history of malignant melanoma of skin; Z85.828 Personal history of other malignant neoplasm of skin
CPT/HCPCS: 36415; 74176; 80048; 80053; 80076; 81001; 82803; 82962; 83605; 83690; 83735; 84100; 84484; 85025; 85027; 85651; 86140; 87086; 87635; 93005; 94761; 97165; 99284; 99285; A9270; G0378; J2405; J7030

== ENCOUNTER 2022-08-16 14:40 | Outpatient (CLI) | payer MEDICARE, BC, SELFPAY ==
[2022-08-16 14:41] LABS: Creatinine Urine 112.1 mg/dL; Microalbumin Creatinine Ratio 0 mg/g (0-30); Microalbumin Urine 1 mg/dL
[2022-08-16 15:44] LABS: Chloride* 103 mmol/L (96-114); Sodium* 139 mmol/L (135-149)
[2022-08-16 15:45] LABS: Potassium* 4.8 mmol/L (3.6-5.1)
[2022-08-16 15:47] LABS: Cholesterol* 141 mg/dL (90-199); Creatinine* 1.3 mg/dL (0.5-1.5); Estimated Glomerular Filt Rate 55 ml/min
[2022-08-16 15:48] LABS: Blood Urea Nitrogen* 30 mg/dL (7-30); Calcium* 9.8 mg/dL (8.4-10.6); Carbon Dioxide* 28 mmol/L (20-32); Glucose* 138 mg/dL (60-115); HDL Cholesterol* 36 mg/dL (>=40); LDL Cholesterol Calculated 67 mg/dL (<100); Triglycerides* 191 mg/dL (40-149)
[2022-08-16 16:24] LABS: PSA Screen* < 0.06 ng/mL (0.10-4.00)
== END 2022-08-16 14:41 | disposition home or self-care (01) ==
PROVIDERS: PCP Family Medicine; Visit Provider Family Medicine
DX: E11.9 Type 2 diabetes mellitus without complications (principal); E78.00 Pure hypercholesterolemia, unspecified; I10 Essential (primary) hypertension; C61 Malignant neoplasm of prostate
CPT/HCPCS: 80048; 80061; 82043; 82570; 84153

== ENCOUNTER 2022-11-13 09:57 | Outpatient (CLI) | payer MEDICARE, BC, SELFPAY | END 2022-11-13 09:58 | disposition home or self-care (01) | LOC: LKVREF 09:58 | PROVIDERS: PCP Family Medicine; Visit Provider Family Medicine | DX: Z00.00 Encounter for general adult medical examination without abnormal findings (principal); I10 Essential (primary) hypertension | CPT/HCPCS: 80048 ==

== ENCOUNTER 2023-03-21 10:53 | Outpatient (CLI) | payer MEDICARE, BC, SELFPAY | END 2023-03-21 10:54 | disposition home or self-care (01) | LOC: NFLDREF 03-22 14:16 | PROVIDERS: PCP Family Medicine; Referring Provider Family Medicine; Visit Provider Family Medicine | DX: R35.1 Nocturia (principal); E11.9 Type 2 diabetes mellitus without complications; C61 Malignant neoplasm of prostate; L82.1 Other seborrheic keratosis; E11.40 Type 2 diabetes mellitus with diabetic neuropathy, unspecified; I10 Essential (primary) hypertension; E78.00 Pure hypercholesterolemia, unspecified | CPT/HCPCS: 87086 ==

== ENCOUNTER 2023-06-16 14:21 | Inpatient (IN) | payer MEDICARE, BC, SELFPAY ==
[2023-06-16 14:34] VITALS: BP 159/66; PULSE 88; RESP 16; TEMP 35.9; O2SAT 95; BMI 28.1
--- NOTE | 2023-06-16 16:31 | CRLHL7_ITS ---
For Patients: As a result of the Century Cures Act, medical imaging exams and procedure reports are released immediately into your electronic medical record. You may view this report before your referring provider. If you have questions, please contact your health care provider. Indication: Abdominal pain TECHNIQUE: Flat and upright abdomen. FINDINGS: Dilated loops of small bowel with air-fluid levels compatible with small bowel obstruction. No free air. Right lower lobe calcified granuloma. Prostatectomy clips. Dictated by Triston Bojorquez MD @ 06/16/2023 5:08:27 PM (Electronically Signed)
--- NOTE | 2023-06-16 17:20 | ED_ITS ---
HPI - General Adult General Chief complaint: Abdominal Pain Stated complaint: Lethargic-prev bowel issues-vomiting Time Seen by Provider: 06/16/23 16:04 History of Present Illness HPI narrative: 83-year-old male presenting today with 3 days of vomiting. No fevers. Chills on and off. Patient does have a history of small bowel obstruction his is quite concerned this is however presents. Patient states he is not having terrible abdominal pain just mild discomfort. He is having daily bowel movements. He had 1 this morning and last night. states that he vomits so much to the point where he starts to vomit dark brown vomitus before he stops. He states that he is passing gas. He states that he went out to eat at [employer] on Saturday and had 30 coconut shrimp, he feels like he may have overdone it as a vomiting started that night. Related Data Home Medications Medication Instructions Recorded Confirmed fluorouracil 5 % topical cream 1 applic topical .COMPLEX 03/14/22 05/21/23 cholecalciferol (vitamin D3) 25 25 mcg PO DAILY 04/10/22 05/21/23 mcg (1,000 unit) tablet ibuprofen-diphenhydramine citrate 2 cap PO .Bedtime as needed PRN 04/10/22 05/21/23 200 mg-38 mg tablet magnesium oxide 400 mg (241.3 mg 400 mg PO .2 X Week 04/10/22 05/21/23 magnesium) tablet melatonin 5 mg tablet 5 mg PO HS PRN 04/10/22 05/21/23 multivitamin 1 tab PO DAILY 04/10/22 05/21/23 chlorpromazine 25 mg tablet 25 - 50 mg PO Q6H PRN 08/03/22 05/21/23 mirabegron 50 mg tablet,extended 50 mg PO DAILY 05/21/23 05/21/23 release 24 hr (Myrbetriq) Previous Rx's Medication Instructions Recorded atenolol 50 mg-chlorthalidone 25 1 tab PO DAILY #90 tabs 08/06/22 mg tablet losartan 100 mg tablet 100 mg PO DAILY #90 tabs 08/06/22 metformin 500 mg tablet,extended 500 mg PO .DAILYWM #90 tabs 08/06/22 release 24 hr simvastatin 20 mg tablet 20 mg PO HS #90 tabs 08/06/22 blood sugar diagnostic (Accu-Chek #100 ea 08/08/22 Negin Plus test strips) pen needle, diabetic 31 gauge x #100 ea 10/04/22 5/16 (BD Ultra-Fine Short Pen Needle) lidocaine 5 % topical patch 1 patch topical .Daily as needed 01/04/23 PRN pain #30 ea amlodipine 2.5 mg tablet 5 mg (2 x 2.5 mg) PO HS #180 tabs 02/19/23 insulin glargine 100 unit/mL (3 58 - 65 unit (0.58 - 0.65 mL) 02/19/23 mL) subcutaneous pen subcut HS #45 mL lancets (Accu-Chek Softclix #200 ea 02/22/23 Lancets) eszopiclone 2 mg tablet 2 mg PO .Bedtime as needed PRN 06/03/23 sleep #30 tabs Allergies Allergy/AdvReac Type Severity Reaction Status Date / Time cats Allergy Unknown Uncoded 06/16/23 14:38 Review of Systems Status of ROS: Reports: 10 or more systems reviewed and unremarkable except as noted in History and below [facility] Medical History Partial small bowel obstruction (1990) ?K56.600 - Partial intestinal obstruction, unspecified as to cause (ICD-10) Nocturia ?R35.1 - Nocturia (ICD-10) Medicare annual wellness visit, subsequent ?Z00.00 - Encounter for general adult medical examination without abnormal findings (ICD-10) Partial bowel obstruction ?K56.600 - Partial intestinal obstruction, unspecified as to cause (ICD-10) Herpes zoster ?B02.9 - Zoster without complications (ICD-10) Cough ?R05.9 - Cough, unspecified (ICD-10) History of squamous cell carcinoma ?Z85.89 - Personal history of malignant neoplasm of other organs and systems (ICD-10) History of Mohs micrographic surgery for skin cancer ?Z85.828 - Personal history of other malignant neoplasm of skin (ICD-10) ?Z98.890 - Other specified postprocedural states (ICD-10) History of malignant melanoma (1987) ?Z85.820 - Personal history of malignant melanoma of skin (ICD-10) History of basal cell carcinoma (BCC) (2017) ?Z85.828 - Personal history of other malignant neoplasm of skin (ICD-10) Surgical History History of abdominal prostatectomy (12/07/09) ?Z90.79 - Acquired absence of other genital organ(s) (ICD-10) History of hernia repair (08/15/92) ?Z98.890 - Other specified postprocedural states (ICD-10) ?Z87.19 - Personal history of other diseases of the digestive system (ICD-10) History of colectomy ?Z90.49 - Acquired absence of other specified parts of digestive tract (ICD- 10) History of cholecystectomy (06/09/04) ?Z90.49 - Acquired absence of other specified parts of digestive tract (ICD- 10) History of appendectomy ?Z90.49 - Acquired absence of other specified parts of digestive tract (ICD- 10) History of tonsillectomy ?Z90.89 - Acquired absence of other organs (ICD-10) History of cataract extraction ?Z98.49 - Cataract extraction status, unspecified eye (ICD-10) History of bunionectomy of left great toe (09/05/11) ?Z98.890 - Other specified postprocedural states (ICD-10) History of arthroscopy of left knee (12/10/13) ?Z98.890 - Other specified postprocedural states (ICD-10) Family History Mother Malignant melanoma Social History Narrative: Gastroenteritis Highest level of school completed/degree received: Bachelor's degree Smoking Status: Never smoker Do you use any of these nicotine containing products: None Second hand tobacco smoke exposure: No How often do you have a drink containing alcohol: never How many standard drinks containing alcohol do you have on a typical day: 1 or 2 AUDIT-C Alcohol total score: 0 Non-prescribed substance use: denies use Caffeine: Yes (coffee) Little interest or pleasure in doing things: not at all Feeling down, depressed, or hopeless: not at all service: No Exam Narrative: Exam Narrative: Well-nourished well-developed patient in no acute distress. Alert and oriented. Answers questions appropriately. Mood and affect are appropriate. Thoughts are goal oriented and rational. No tangential or magical thinking noted. Patient speaks in full sentences without needing to catch his breath. HEENT: Normocephalic atraumatic. Pupils are equally round reactive to light. Extraocular muscles are intact. Conjunctivae are moist without any icterus noted. Moist mucous membranes. Cardiovascular: Heart is regular rate and rhythm S1 and S2 are present without any murmurs. Lungs: Clear to auscultation bilaterally no wheezes rhonchi or rales are appreciated. Patient takes deep breaths without any discomfort. Abdomen: Protuberant and soft. He does have hypoactive bowel sounds. No significant tenderness noted. No guarding or rebound tenderness. No peritoneal signs. Extremities: Bilateral lower extremities are without edema. Normal DP and PT pulses. Skin: Well perfused without any obvious rashes. Const: Vital Signs, click to edit/add: Vital Signs - 24 hr 06/16/23 14:34 06/16/23 17:34 Temperature 96.7 F L 97.5 F L Pulse Rate [Pulse Oximeter] 88 77 Respiratory Rate 16 18 Blood Pressure [Ri ght Upper Arm] 159/66 H 134/79 Pulse Oximetry 95 97 Oxygen Delivery Me thod Room Air Room Air Course Course ED Course: IV was established and labs were drawn. 500 mL normal saline started. WBC is elevated at just above 15,000, 82% neutrophils. Normal sodium and potassium. BUN is 33 and creatinine 1.3. Glucose 239. Lactate elevated at 5.8. LFTs just minimally elevated. CRP 1.1. Flat and upright films do show air-fluid levels consistent with a bowel obstruction. Abdominal CT showing small bowel obstruction. Another 500 mL normal saline started. Did consult with Dr. Olmstead, in agreement with diagnosis and admission. Vital Signs Vital signs: Initial Vital Signs Temperature 96.7 F L 06/16/23 14:34 Temperature Source Temporal Artery Scan 06/16/23 14:34 Pulse Rate 88 06/16/23 14:34 Respiratory Rate 16 06/16/23 14:34 Blood Pressure 159/66 H 06/16/23 14:34 Blood Pressure Mean 97 06/16/23 14:34 Blood Pressure Position Sitting 06/16/23 14:34 Pulse Oximetry 95 06/16/23 14:34 Oxygen Delivery Method Room Air 06/16/23 14:34 Vital Signs Temperature 96.7 F L 06/16/23 14:34 Pulse Rate 88 06/16/23 14:34 Respiratory Rate 16 06/16/23 14:34 Blood Pressure 159/66 H 06/16/23 14:34 Pulse Oximetry 95 06/16/23 14:34 Oxygen Delivery Method Room Air 06/16/23 14:34 Temperature 97.5 F L 06/16/23 17:34 Pulse Rate 77 06/16/23 17:34 Respiratory Rate 18 06/16/23 17:34 Blood Pressure 134/79 06/16/23 17:34 Pulse Oximetry 97 06/16/23 17:34 Oxygen Delivery Method Room Air 06/16/23 17:34 Medical Decision Making MDM Narrative Medical decision making narrative: 83-year-old male with small-bowel obstruction. Has not had any vomiting since he has been in the ER today therefore NG tube was not fluids. Patient will be admitted for conservative management. Medical Records Medical records reviewed: Yes I reviewed the patient's medical records Lab Data Lab results reviewed: Yes I reviewed the patient's lab results Labs: Lab Results 06/16/23 Range/Units 17:10 WBC 15.71 H (4.50-11.00) K/uL RBC 5.09 (4.30-5.90) m/uL Hgb 16.0 (13.5-17.5) gm/dL Hct 47.9 (37.0-53.0) % MCV 94 (80-100) fL MCH 31 (26-34) pg MCHC 33 (32-36) gm/dL RDW Coeff of Javier 12.6 (11.5-15.5) % Plt Count 372 (140-440) K/uL Neut % (Auto) 82.1 H (42.0-72.0) % Lymph % (Auto) 9.7 L (20-44) % Sherman % (Auto) 8.0 (0.0-11.0) % Eos % (Auto) 0.0 (0.0-7.0) % Baso % (Auto) 0.1 (0.0-3.0) % Neut # (Auto) 12.90 H (1.7-7.0) K/uL Lymph # (Auto) 1.50 (0.90-2.90) K/uL Sherman # (Auto) 1.30 H (0.00-0.90) K/UL Eos # (Auto) 0.00 (0.00-0.50) K/uL Baso # (Auto) 0.00 (0.00-0.30) K/uL Abs Immat Gran (auto) 0.00 (0.00-0.30) K/uL Imm/Tot Granulo (auto) 0.1 % VBG pH 7.413 (7.32-7.43) VBG pCO2 43 (40-50) mmHG VBG pO2 41.0 (25-47) mmHG VBG HCO3 27 (21-28) mmol/L Sodium 140 (135-149) mmol/L Potassium 4.0 (3.6-5.1) mmol/L Chloride 94 L (96-114) mmol/L Carbon Dioxide 26 (20-32) mmol/L Anion Gap 20 H (7-15) mEq/L BUN 33 H (7-30) mg/dL Creatinine 1.3 (0.5-1.5) mg/dL Estimated Creat Clear 48.66 Estimated GFR 55 ml/min Glucose 239 H (60-115) mg/dL Lactate 5.8 H* (0.5-1.9) mmol/L Calcium 10.1 (8.4-10.6) mg/dL Total Bilirubin 1.5 (0.1-1.5) mg/dL Direct Bilirubin 0.0 (0.0-0.5) mg/dL AST 46 H (12-35) U/L ALT 69 H (4-50) U/L Alkaline Phosphatase 69 (40-150) U/L C-Reactive Protein 1.1 H (0.5-1.0) mg/dL Total Protein 8.4 H (6.0-8.3) g/dL Albumin 4.7 (3.3-5.0) g/dL Lipase 45 (23-300) U/L Imaging Data Abdominal x-ray: Attestation: I have reviewed the pertinent imaging results. Radiologist's impression: Abdominal pain TECHNIQUE: Flat and upright abdomen. FINDINGS: Dilated loops of small bowel with air-fluid levels compatible with small bowel obstruction. No free air. Right lower lobe calcified granuloma. Prostatectomy clips. CT scan - abdomen: Attestation: I have reviewed the pertinent imaging results. Radiologist's impression: CT abdomen and pelvis acquired with 100 cc Isovue 370 IV contrast. COMPARISON: CT August 2022. FINDINGS: Lower chest: Calcified granulomas. ABDOMEN: Liver: Normal enhancement. No focal suspicious hepatic lesions. Gallbladder and biliary: Cholecystectomy. Normal caliber bile ducts. Spleen: Calcified splenic granulomas. Pancreas: Normal enhancement without peripancreatic inflammatory changes or ductal dilatation. Adrenal glands: Normal adrenal glands. Kidneys and ureters: Normal enhancement. No radio-opaque calculi. No hydroureteronephrosis. GI tract: Stomach is partially distended with fluid. Fluid filled dilated loops of mid small bowel loops with transition point abutting the umbilicus with decompressed loops of distal small bowel. Appendix is not definitively visualized. Colonic diverticulosis without diverticulitis. Vascular structures: Patent abdominal aorta with atherosclerotic vascular calcifications. Lymph nodes: No lymphadenopathy in the abdomen or pelvis by size criteria. Peritoneum: No free air, free fluid, or focal drainable fluid collection. PELVIS: Genitourinary system: Normal urinary bladder. Prostatectomy. Pelvic sidewall rosana dissection. SKELETAL STRUCTURES AND SOFT TISSUES: Lumbar spondylosis. IMPRESSION: At least high-grade partial small-bowel obstruction with transition point at the level of the umbilicus. Discharge Plan Discharge Clinical Impression: SBO (small bowel obstruction) Patient Disposition: Admitted As Observation Condition: Stable Prescriptions: No Action magnesium oxide 400 mg (241.3 mg magnesium) tablet 400 mg PO .2 X Week multivitamin Tablet 1 tab PO DAILY cholecalciferol (vitamin D3) 25 mcg (1,000 unit) tablet 25 mcg PO DAILY melatonin 5 mg tablet 5 mg PO HS PRN ibuprofen-diphenhydramine cit 200-38 mg tablet 2 cap PO .Bedtime as needed PRN atenolol-chlorthalidone 50-25 mg tablet 1 tab PO DAILY Qty: 90 3RF losartan 100 mg tablet 100 mg PO DAILY Qty: 90 3RF metformin 500 mg tablet extended release 24 hr 500 mg PO .DAILYWM Qty: 90 3RF simvastatin 20 mg tablet 20 mg PO HS Qty: 90 3RF amlodipine 2.5 mg tablet 5 mg PO HS Qty: 180 3RF Rx Instructions: take at night insulin glargine 100 unit/mL (3 mL) insulin pen 58 - 65 unit subcut HS Qty: 45 2RF Rx Instructions: Fill on patients call Myrbetriq 50 mg tablet extended release 24 hr 50 mg PO DAILY chlorpromazine 25 mg tablet 25 - 50 mg PO Q6H PRN fluorouracil 5 % cream 1 applic topical .COMPLEX Rx Instructions: 1 applic topical twice a week; (DME) Accu-Chek Negin Plus test strp Strip See Rx Instructions .Route Qty: 100 8RF Rx Instructions: As directed, test twice daily. (DME) pen needle, diabetic [BD Ultra-Fine Short Pen Needle] 31 gauge x 5/16 needle See Rx Instructions .Route Qty: 100 6RF Rx Instructions: Once daily at bedtime lidocaine 5 % adhesive patch,medicated 1 patch topical .Daily as needed PRN (Reason: pain) Qty: 30 12RF (DME) lancets [Accu-Chek Softclix Lancets] Misc See Rx Instructions .Route Qty: 200 0RF Rx Instructions: test blood sugar twice daily eszopiclone 2 mg tablet 2 mg PO .Bedtime as needed PRN (Reason: sleep) Qty: 30 5RF Follow Up/Referrals: Merrill Mejia MD [Primary Care Provider] -
--- NOTE | 2023-06-16 17:21 | CRLHL7_ITS ---
For Patients: As a result of the Century Cures Act, medical imaging exams and procedure reports are released immediately into your electronic medical record. You may view this report before your referring provider. If you have questions, please contact your health care provider. INDICATION: SBO TECHNIQUE: CT abdomen and pelvis acquired with 100 cc Isovue 370 IV contrast. COMPARISON: CT August 2022. FINDINGS: Lower chest: Calcified granulomas. ABDOMEN: Liver: Normal enhancement. No focal suspicious hepatic lesions. Gallbladder and biliary: Cholecystectomy. Normal caliber bile ducts. Spleen: Calcified splenic granulomas. Pancreas: Normal enhancement without peripancreatic inflammatory changes or ductal dilatation. Adrenal glands: Normal adrenal glands. Kidneys and ureters: Normal enhancement. No radio-opaque calculi. No hydroureteronephrosis. GI tract: Stomach is partially distended with fluid. Fluid filled dilated loops of mid small bowel loops with transition point abutting the umbilicus with decompressed loops of distal small bowel. Appendix is not definitively visualized. Colonic diverticulosis without diverticulitis. Vascular structures: Patent abdominal aorta with atherosclerotic vascular calcifications. Lymph nodes: No lymphadenopathy in the abdomen or pelvis by size criteria. Peritoneum: No free air, free fluid, or focal drainable fluid collection. PELVIS: Genitourinary system: Normal urinary bladder. Prostatectomy. Pelvic sidewall rosana dissection. SKELETAL STRUCTURES AND SOFT TISSUES: Lumbar spondylosis. IMPRESSION: At least high-grade partial small-bowel obstruction with transition point at the level of the umbilicus. Please note that all CT scans at this facility use dose modulation, iterative reconstruction, and/or weight-based dosing when appropriate to reduce radiation dose to as low as reasonably achievable. Dictated by Gil Gutierrez MD @ 06/16/2023 6:41:16 PM (Electronically Signed)
[2023-06-16] MEDS: 0.9 % SODIUM CHLORIDE 500 ML 500 ML IV ×2 (17:22→19:17)
[2023-06-16] MEDS: ONDANSETRON 2 MG/ML inj 4 MG IVP (17:22)
[2023-06-16 17:23] LABS: Lactate* 5.8 mmol/L (0.5-1.9); PCO2 VBG 43 mmHG (40-50); pH VBG 7.413 (7.32-7.43)
[2023-06-16 17:24] LABS: Basophils Percent Auto 0.1 % (0.0-3.0); HCO3 VBG 27 mmol/L (21-28); Hematocrit 47.9 % (37.0-53.0); Immature Granulocytes Pct Auto 0.1 %; Lymphocytes Percent Auto 9.7 % (20-44); Mean Corpuscular HGB Conc 33 gm/dL (32-36); Mean Corpuscular Hemoglobin 31 pg (26-34); Mean Corpuscular Volume 94 fL (80-100); Neutrophils Percent Auto 82.1 % (42.0-72.0); Platelet Count* 372 K/uL (140-440); RDW Coefficient of Variation % 12.6 % (11.5-15.5); Red Blood Count 5.09 m/uL (4.30-5.90); White Blood Count* 15.71 K/uL (4.50-11.00)
[2023-06-16 17:25] LABS: Slide Review Reflex No
[2023-06-16 17:34] VITALS: BP 134/79; PULSE 77; RESP 18; TEMP 36.4; O2SAT 97
[2023-06-16 17:37] LABS: Albumin* 4.7 g/dL (3.3-5.0); Chloride* 94 mmol/L (96-114)
[2023-06-16 17:38] LABS: Sodium* 140 mmol/L (135-149)
[2023-06-16 17:40] LABS: Creatinine* 1.3 mg/dL (0.5-1.5); Est. Creatinine Clearance* 48.66; Estimated Glomerular Filt Rate 55 ml/min
[2023-06-16 17:41] LABS: Alanine Aminotransferase* 69 U/L (4-50); Alkaline Phosphatase* 69 U/L (40-150); Anion Gap 20 mEq/L (7-15); Aspartate Amino Transferase* 46 U/L (12-35); Bilirubin Total* 1.5 mg/dL (0.1-1.5); Blood Urea Nitrogen* 33 mg/dL (7-30); Calcium* 10.1 mg/dL (8.4-10.6); Carbon Dioxide* 26 mmol/L (20-32); Glucose* 239 mg/dL (60-115); Lipase* 45 U/L (23-300); Total Protein* 8.4 g/dL (6.0-8.3)
[2023-06-16 17:44] LABS: C Reactive Protein* 1.1 mg/dL (0.5-1.0)
--- NOTE | 2023-06-16 18:46 | PM.GSCN ---
History of Present Illness Consult details Date Seen: 06/16/23 Consult date: 06/16/23 Narrative: Patient is a pleasant 83-year-old male who presented to the emergency department with nausea and vomiting. He states that his symptoms started on Saturday with an achiness in his abdomen. He vomited on and off on Saturday and continued to have multiple bowel movements, which he described as small and solid. This morning he had another small bowel movement with passing of gas. Due to persistent vomiting and inability to keep anything down he came in to be evaluated. He does have a history of small-bowel obstructions in the past, starting around the age of 66 years old. His last few small-bowel obstructions have been managed conservatively. He states that the pain he is currently feeling is different from the pain of previous bowel obstructions, not as severe or persistent. His abdominal surgical history is positive for an open appendectomy, open cholecystectomy, lysis of adhesions and colectomy. 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 Review of Systems Status of ROS: Reports: 6 or more systems reviewed and unremarkable except as noted in History and below [facility] Medical History (Updated 06/16/23 @ 18:52 by Nathalie Olmstead MD) Partial small bowel obstruction (1990) ?K56.600 - Partial intestinal obstruction, unspecified as to cause (ICD-10) Nocturia ?R35.1 - Nocturia (ICD-10) Medicare annual wellness visit, subsequent ?Z00.00 - Encounter for general adult medical examination without abnormal findings (ICD-10) Partial bowel obstruction ?K56.600 - Partial intestinal obstruction, unspecified as to cause (ICD-10) Herpes zoster ?B02.9 - Zoster without complications (ICD-10) Cough ?R05.9 - Cough, unspecified (ICD-10) History of squamous cell carcinoma ?Z85.89 - Personal history of malignant neoplasm of other organs and systems (ICD-10) History of Mohs micrographic surgery for skin cancer ?Z85.828 - Personal history of other malignant neoplasm of skin (ICD-10) ?Z98.890 - Other specified postprocedural states (ICD-10) History of malignant melanoma (1988) ?Z85.820 - Personal history of malignant melanoma of skin (ICD-10) History of basal cell carcinoma (BCC) (2017) ?Z85.828 - Personal history of other malignant neoplasm of skin (ICD-10) Surgical History (Updated 01/29/23 @ 10:34 by Beckie Cruz RN, RN) History of abdominal prostatectomy (12/07/09) ?Z90.79 - Acquired absence of other genital organ(s) (ICD-10) History of hernia repair (08/15/92) ?Z98.890 - Other specified postprocedural states (ICD-10) ?Z87.19 - Personal history of other diseases of the digestive system (ICD-10) History of colectomy ?Z90.49 - Acquired absence of other specified parts of digestive tract (ICD-10) History of cholecystectomy (06/09/04) ?Z90.49 - Acquired absence of other specified parts of digestive tract (ICD-10) History of appendectomy ?Z90.49 - Acquired absence of other specified parts of digestive tract (ICD-10) History of tonsillectomy ?Z90.89 - Acquired absence of other organs (ICD-10) History of cataract extraction ?Z98.49 - Cataract extraction status, unspecified eye (ICD-10) History of bunionectomy of left great toe (09/05/11) ?Z98.890 - Other specified postprocedural states (ICD-10) History of arthroscopy of left knee (12/10/13) ?Z98.890 - Other specified postprocedural states (ICD-10) Family History Mother Malignant melanoma Social History Narrative: Gastroenteritis Highest level of school completed/degree received: Bachelor's degree Smoking Status: Never smoker Do you use any of these nicotine containing products: None Second hand tobacco smoke exposure: No How often do you have a drink containing alcohol: never How many standard drinks containing alcohol do you have on a typical day: 1 or 2 AUDIT-C Alcohol total score: 0 Non-prescribed substance use: denies use Caffeine: Yes (coffee) Little interest or pleasure in doing things: not at all Feeling down, depressed, or hopeless: not at all service: No Meds Home Medications and Allergies Home Medications Medication Instructions Recorded Confirmed Type fluorouracil 5 % topical cream 1 applic topical .COMPLEX 03/14/22 05/21/23 History cholecalciferol (vitamin D3) 25 25 mcg PO DAILY 04/10/22 05/21/23 History mcg (1,000 unit) tablet ibuprofen-diphenhydramine citrate 2 cap PO .Bedtime as needed PRN 04/10/22 05/21/23 History 200 mg-38 mg tablet magnesium oxide 400 mg (241.3 mg 400 mg PO .2 X Week 04/10/22 05/21/23 History magnesium) tablet melatonin 5 mg tablet 5 mg PO HS PRN 04/10/22 05/21/23 History multivitamin 1 tab PO DAILY 04/10/22 05/21/23 History chlorpromazine 25 mg tablet 25 - 50 mg PO Q6H PRN 08/03/22 05/21/23 History mirabegron 50 mg tablet,extended 50 mg PO DAILY 05/21/23 05/21/23 History release 24 hr (Myrbetriq) Allergies Allergy/AdvReac Type Severity Reaction Status Date / Time cats Allergy Unknown Uncoded 06/16/23 14:38 Exam Narrative: Exam Narrative: General: Alert and oriented, no acute distress. Respiratory: Equal breath rise bilaterally, maintained on room air CV: Well perfused Abdomen: Mild distention, nontender to palpation with no guarding or rebound. Well-healed surgical scars. Const: Vital Signs, click to edit/add: Vital Signs - 24 hr 06/16/23 14:34 06/16/23 17:34 Temperature 96.7 F L 97.5 F L Pulse Rate [Pulse Oximeter] 88 77 Respiratory Rate 16 18 Blood Pressure [Ri ght Upper Arm] 159/66 H 134/79 Pulse Oximetry 95 97 Oxygen Delivery Me thod Room Air Room Air Results Labs Labs: Abnormal lab results 06/16/23 Range/Units 17:10 WBC 15.71 H (4.50-11.00) K/uL Neut % (Auto) 82.1 H (42.0-72.0) % Lymph % (Auto) 9.7 L (20-44) % Neut # (Auto) 12.90 H (1.7-7.0) K/uL Stone # (Auto) 1.30 H (0.00-0.90) K/UL Chloride 94 L (96-114) mmol/L Anion Gap 20 H (7-15) mEq/L BUN 33 H (7-30) mg/dL Glucose 239 H (60-115) mg/dL Lactate 5.8 H* (0.5-1.9) mmol/L AST 46 H (12-35) U/L ALT 69 H (4-50) U/L C-Reactive Protein 1.1 H (0.5-1.0) mg/dL Total Protein 8.4 H (6.0-8.3) g/dL Diabetes panel 06/16/23 Range/Units 17:10 Sodium 140 (135-149) mmol/L Potassium 4.0 (3.6-5.1) mmol/L Chloride 94 L (96-114) mmol/L Carbon Dioxide 26 (20-32) mmol/L BUN 33 H (7-30) mg/dL Creatinine 1.3 (0.5-1.5) mg/dL Glucose 239 H (60-115) mg/dL Calcium 10.1 (8.4-10.6) mg/dL AST 46 H (12-35) U/L ALT 69 H (4-50) U/L Alkaline Phosphatase 69 (40-150) U/L Total Protein 8.4 H (6.0-8.3) g/dL Albumin 4.7 (3.3-5.0) g/dL Calcium panel 06/16/23 Range/Units 17:10 Calcium 10.1 (8.4-10.6) mg/dL Albumin 4.7 (3.3-5.0) g/dL Pituitary panel 06/16/23 Range/Units 17:10 Sodium 140 (135-149) mmol/L Potassium 4.0 (3.6-5.1) mmol/L Chloride 94 L (96-114) mmol/L Carbon Dioxide 26 (20-32) mmol/L BUN 33 H (7-30) mg/dL Creatinine 1.3 (0.5-1.5) mg/dL Glucose 239 H (60-115) mg/dL Calcium 10.1 (8.4-10.6) mg/dL Adrenal panel 06/16/23 Range/Units 17:10 Sodium 140 (135-149) mmol/L Potassium 4.0 (3.6-5.1) mmol/L Chloride 94 L (96-114) mmol/L Carbon Dioxide 26 (20-32) mmol/L BUN 33 H (7-30) mg/dL Creatinine 1.3 (0.5-1.5) mg/dL Glucose 239 H (60-115) mg/dL Calcium 10.1 (8.4-10.6) mg/dL Total Bilirubin 1.5 (0.1-1.5) mg/dL AST 46 H (12-35) U/L ALT 69 H (4-50) U/L Alkaline Phosphatase 69 (40-150) U/L Total Protein 8.4 H (6.0-8.3) g/dL Albumin 4.7 (3.3-5.0) g/dL All other labs normal. Imaging Abdomen CT scan report/results: report reviewed and image reviewed Assessment and Plan Assessment and plan (1) Partial small bowel obstruction: Status: Acute Plan Patient is an 83-year-old male with a 2 day history of nausea and vomiting. His last bowel movement was this morning. Vital signs stable. Labs are significant for a leukocytosis (15) and elevated lactate (5.8), consistent with dehydration and persistent emesis. A CT scan was obtained which demonstrated a small-bowel obstruction with transition around the umbilicus. No evidence of pneumatosis, close loop obstruction or reactive fluid within the abdomen. Abdominal exam is benign for me at this time. Findings are consistent with a partial small bowel obstruction, likely secondary to adhesions. Recommend IV fluid resuscitation, trend labs and conservative management of small-bowel obstruction. -NPO, IV fluids -patient denying current nausea, stomach is partially decompress. Would recommend placement of an NG tube if he develops any further nausea or vomiting -encourage ambulation -trend lactate -repeat CBC tomorrow morning Surgery will continue to follow. Please call with any acute clinical changes, questions or concerns.
[2023-06-16 19:49] VITALS: BP 138/80; PULSE 87; RESP 22; O2SAT 100
--- NOTE | 2023-06-16 20:07 | PM.IMHP1 ---
Hospitalist- H&P: HPI History of Present Illness Date Seen: 06/16/23 Chief complaint: Lethargic-prev bowel issues-vomiting Narrative: Ialn Alaniz is a 83 year old male with diabetes mellitus, hypertension and history of recurrent small-bowel obstructions presents with a 1-1/2 day history of abdominal pain and vomiting. He last ate a normal meal 2 nights ago. He reports that he was actually eating a fairly large meal at that time. He had breakfast yesterday morning and has not had significant food since that time. He has loss of appetite, nausea and abdominal pain. Yesterday had 3 emesis. Nonbloody. Today he had an emesis again. He has had very little p.o. food or fluid in the last day and a half. He has a history of recurrent small-bowel obstructions. These began when he was 6 or 7 years old and had appendicitis. Since then he has had recurrent small-bowel obstructions on multiple occasions. He is unsure whether as a child he had a surgery for lysis of adhesions. As an adult he reports not having any abdominal surgeries for lysis of adhesions but recurrent hospitalizations with conservative management. He has had other abdominal surgery including cholecystectomy, abdominal prostatectomy, hernia repair. Records indicate he has had a colectomy but he reports that this is not accurate. He has not had a fever. He has not had any blood in his emesis or stool. Last bowel movement was last night. He reports no other symptoms of illness. No shortness of breath or chest pain. Review of Systems Narrative: Complete review of systems is unremarkable except as noted above [facility] Medical History (Updated 06/16/23 @ 20:20 by Sincere Alfaro MD) Partial small bowel obstruction (1990) ?K56.600 - Partial intestinal obstruction, unspecified as to cause (ICD-10) Nocturia ?R35.1 - Nocturia (ICD-10) Medicare annual wellness visit, subsequent ?Z00.00 - Encounter for general adult medical examination without abnormal findings (ICD-10) Partial bowel obstruction ?K56.600 - Partial intestinal obstruction, unspecified as to cause (ICD-10) Herpes zoster ?B02.9 - Zoster without complications (ICD-10) Cough ?R05.9 - Cough, unspecified (ICD-10) History of squamous cell carcinoma ?Z85.89 - Personal history of malignant neoplasm of other organs and systems (ICD-10) History of Mohs micrographic surgery for skin cancer ?Z85.828 - Personal history of other malignant neoplasm of skin (ICD-10) ?Z98.890 - Other specified postprocedural states (ICD-10) History of malignant melanoma (1988) ?Z85.820 - Personal history of malignant melanoma of skin (ICD-10) History of basal cell carcinoma (BCC) (2017) ?Z85.828 - Personal history of other malignant neoplasm of skin (ICD-10) Surgical History (Updated 06/16/23 @ 20:14 by Sincere Alfaro MD) History of abdominal prostatectomy (12/07/09) ?Z90.79 - Acquired absence of other genital organ(s) (ICD-10) History of hernia repair (08/15/92) ?Z98.890 - Other specified postprocedural states (ICD-10) ?Z87.19 - Personal history of other diseases of the digestive system (ICD-10) History of cholecystectomy (06/09/04) ?Z90.49 - Acquired absence of other specified parts of digestive tract (ICD-10) History of appendectomy ?Z90.49 - Acquired absence of other specified parts of digestive tract (ICD-10) History of tonsillectomy ?Z90.89 - Acquired absence of other organs (ICD-10) History of cataract extraction ?Z98.49 - Cataract extraction status, unspecified eye (ICD-10) History of bunionectomy of left great toe (09/05/11) ?Z98.890 - Other specified postprocedural states (ICD-10) History of arthroscopy of left knee (12/10/13) ?Z98.890 - Other specified postprocedural states (ICD-10) Family History (Updated 06/16/23 @ 20:14 by Sincere Alfaro MD) Mother Malignant melanoma Father Heart disease Social History (Updated 06/16/23 @ 20:16 by Sincere Alfaro MD) Narrative: He lives independently in [place] with his . Their home is set up for excess ability with handicaps. is healthcare power of [employer] [place] attorney. 3 children are power [employer] [place] attorney if his is incapable of decision making. Code status is full. He is very clear that he does not want to live on life support or with severe disability. He does not smoke. He drinks 1 alcoholic beverage per week Highest level of school completed/degree received: Bachelor's degree Smoking Status: Never smoker Do you use any of these nicotine containing products: None Second hand tobacco smoke exposure: No How often do you have a drink containing alcohol: never How many standard drinks containing alcohol do you have on a typical day: 1 or 2 AUDIT-C Alcohol total score: 0 Non-prescribed substance use: denies use Caffeine: Yes (coffee) Little interest or pleasure in doing things: not at all Feeling down, depressed, or hopeless: not at all service: No Meds Home Medications and Allergies Home Medications Medication Instructions Recorded Confirmed Type fluorouracil 5 % topical cream 1 applic topical .COMPLEX 03/14/22 05/21/23 History cholecalciferol (vitamin D3) 25 25 mcg PO DAILY 04/10/22 05/21/23 History mcg (1,000 unit) tablet ibuprofen-diphenhydramine citrate 2 cap PO .Bedtime as needed PRN 04/10/22 05/21/23 History 200 mg-38 mg tablet magnesium oxide 400 mg (241.3 mg 400 mg PO .2 X Week 04/10/22 05/21/23 History magnesium) tablet melatonin 5 mg tablet 5 mg PO HS PRN 04/10/22 05/21/23 History multivitamin 1 tab PO DAILY 04/10/22 05/21/23 History chlorpromazine 25 mg tablet 25 - 50 mg PO Q6H PRN 08/03/22 05/21/23 History mirabegron 50 mg tablet,extended 50 mg PO DAILY 05/21/23 05/21/23 History release 24 hr (Myrbetriq) Allergies Allergy/AdvReac Type Severity Reaction Status Date / Time cats Allergy Unknown Uncoded 06/16/23 14:38 Exam Narrative: Exam Narrative: He is alert and appears in no distress. Gives his own history. Head is notable for actinic keratosis and skin changes from sun damage on his scalp. Eyes normal. Oropharynx with dry mucous membranes. Neck is supple without mass or adenopathy. Respirations are clear to auscultation. Good air exchange all lung pappas. Cardiovascular: S1, S2, regular rate and rhythm. Abdomen is soft without tenderness or mass. He does not have significant abdominal distension. No significant tenderness. Extremities with decreased sensation. Also decreased peripheral pulses. No significant skin changes except for fairly severely sun damaged skin Const: Vital Signs, click to edit/add: Vital Signs - 24 hr 06/16/23 14:34 06/16/23 17:34 06/16/23 19:49 Temperature 96.7 F L 97.5 F L Pulse Rate [Pulse Oximeter] 88 77 87 Respiratory Rate 16 18 22 Blood Pressure [Ri ght Upper Arm] 159/66 H 134/79 138/80 Pulse Oximetry 95 97 100 Oxygen Delivery Me thod Room Air Room Air Documenting provider has reviewed patient's vital signs: yes Hospitalist - H&P: Result Labs Labs: Short CBC 06/16/23 Range/Units 17:10 WBC 15.71 H (4.50-11.00) K/uL Hgb 16.0 (13.5-17.5) gm/dL Hct 47.9 (37.0-53.0) % Plt Count 372 (140-440) K/uL BMP 06/16/23 17:10 Sodium 140 Potassium 4.0 Chloride 94 L Carbon Dioxide 26 BUN 33 H Creatinine 1.3 Glucose 239 H Calcium 10.1 Liver Function 06/16/23 Range/Units 17:10 Total Bilirubin 1.5 (0.1-1.5) mg/dL Direct Bilirubin 0.0 (0.0-0.5) mg/dL AST 46 H (12-35) U/L ALT 69 H (4-50) U/L Alkaline Phosphatase 69 (40-150) U/L Albumin 4.7 (3.3-5.0) g/dL Imaging CT scan - abdomen: Radiologist's impression: INDICATION: SBO TECHNIQUE: CT abdomen and pelvis acquired with 100 cc Isovue 370 IV contrast. COMPARISON: CT August 2022. FINDINGS: Lower chest: Calcified granulomas. ABDOMEN: Liver: Normal enhancement. No focal suspicious hepatic lesions. Gallbladder and biliary: Cholecystectomy. Normal caliber bile ducts. Spleen: Calcified splenic granulomas. Pancreas: Normal enhancement without peripancreatic inflammatory changes or ductal dilatation. Adrenal glands: Normal adrenal glands. Kidneys and ureters: Normal enhancement. No radio-opaque calculi. No hydroureteronephrosis. GI tract: Stomach is partially distended with fluid. Fluid filled dilated loops of mid small bowel loops with transition point abutting the umbilicus with decompressed loops of distal small bowel. Appendix is not definitively visualized. Colonic diverticulosis without diverticulitis. Vascular structures: Patent abdominal aorta with atherosclerotic vascular calcifications. Lymph nodes: No lymphadenopathy in the abdomen or pelvis by size criteria. Peritoneum: No free air, free fluid, or focal drainable fluid collection. PELVIS: Genitourinary system: Normal urinary bladder. Prostatectomy. Pelvic sidewall rosana dissection. SKELETAL STRUCTURES AND SOFT TISSUES: Lumbar spondylosis. IMPRESSION: At least high-grade partial small-bowel obstruction with transition point at the level of the umbilicus. Assessment and Plan Assessment and plan (1) SBO (small bowel obstruction): Problem comment: NPO, IV fluids, pain medication, IV medications for chronic medical problems as needed. Anticipate conservative management with resolution of symptoms. Consult surgery. Status: Acute (2) Diabetes mellitus, type II: Problem comment: Reduce long-acting insulin. Sliding scale insulin q.6 hours. IV dextrose as needed Status: Acute (3) Lactic acidosis: Problem comment: Probably due to poor oral intake and vomiting. No obvious signs of infection. Recheck lactate after fluid resuscitation. Status: Acute Plan Patient is admitted to the hospital for management of small bowel obstruction, dehydration, lactic acidosis, diabetes. Total time spent today is 75 minutes, 50 minutes in coordination of care discussing with patient other providers management of small bowel obstruction
[2023-06-16] MEDS: LACTATED RINGERS 1000 ML 1,000 ML 125 ML IV (20:37)
[2023-06-16] MEDS: LACTATED RINGERS 500 ML 500 ML IV (20:40)
[2023-06-16] MEDS: ENOXAPARIN 40 MG/0.4 ML INJ SUBCUT (21:38)
[2023-06-16] MEDS: MELATONIN 3 MG TABLET PO (21:39)
[2023-06-16] MEDS: AMLODIPINE 5 MG TABLET PO (21:39)
[2023-06-16 21:55] LABS: Lactate* 4.6 mmol/L (0.5-1.9)
[2023-06-16 22:17] VITALS: BP 144/90; PULSE 88; RESP 20; TEMP 36.9; O2SAT 98; BMI 27.3
[2023-06-16 23:00] VITALS: BP 145/74; PULSE 73; PULSE 88; RESP 20; TEMP 36.9; O2SAT 94
--- NOTE | 2023-06-16 23:03 | PC.NURSE ---
Admit 1999- Patient arrives from ED with . He ambulates with SBA. Seems somewhat impulsive, repetitive. He denies abdominal pain or nausea. Tolerates small amounts of ice chips without issue.
[2023-06-17 03:00] VITALS: BP 146/80; PULSE 84; RESP 20; TEMP 36.4; O2SAT 92
[2023-06-17] MEDS: ONDANSETRON 2 MG/ML inj 4 MG IVP (04:24)
[2023-06-17] MEDS: LACTATED RINGERS 1000 ML 1,000 ML 125 ML IV ×3 (05:24→20:44)
[2023-06-17 06:08] LABS: Lactate* 1.5 mmol/L (0.5-1.9)
--- NOTE | 2023-06-17 06:16 | PC.NURSE ---
Shift note: No c/o pain, bowel sounds hyperactive, occasional dry heaves, no emesis throughout the night, walks to the BR with SBA.
[2023-06-17 06:19] LABS: Basophils Absolute Auto 0.03 K/uL (0.00-0.30); Basophils Percent Auto 0.3 % (0.0-3.0); Eosinophils Absolute Auto 0.05 K/uL (0.00-0.50); Eosinophils Percent Auto 0.5 % (0.0-7.0); Hemoglobin* 14.3 gm/dL (13.5-17.5); Immature Granulocytes Abs Auto 0.01 K/uL (0.00-0.30); Immature Granulocytes Pct Auto 0.1 %; Lymphocytes Percent Auto 14.2 % (20-44); Mean Corpuscular HGB Conc 34 gm/dL (32-36); Mean Corpuscular Hemoglobin 32 pg (26-34); Mean Corpuscular Volume 94 fL (80-100); Monocytes Percent Auto 12.6 % (0.0-11.0); Neutrophils Percent Auto 72.3 % (42.0-72.0); Platelet Count* 311 K/uL (140-440); RDW Coefficient of Variation % 12.6 % (11.5-15.5); Red Blood Count 4.48 m/uL (4.30-5.90)
[2023-06-17 06:23] LABS: Chloride* 99 mmol/L (96-114); Slide Review Reflex No; Sodium* 138 mmol/L (135-149)
[2023-06-17 06:24] LABS: Potassium* 3.4 mmol/L (3.6-5.1)
[2023-06-17 06:26] LABS: Creatinine* 1.2 mg/dL (0.5-1.5); Est. Creatinine Clearance* 52.71; Estimated Glomerular Filt Rate 60 ml/min
[2023-06-17 06:27] LABS: Anion Gap 10 mEq/L (7-15); Blood Urea Nitrogen* 33 mg/dL (7-30); Calcium* 9.4 mg/dL (8.4-10.6); Carbon Dioxide* 29 mmol/L (20-32); Glucose* 82 mg/dL (60-115)
[2023-06-17 07:35] VITALS: BP 167/90; PULSE 85; RESP 14; TEMP 36.7; O2SAT 93
[2023-06-17] MEDS: atenoloL 50 MG TABLET PO (09:13)
--- NOTE | 2023-06-17 11:02 | P.GSPN_ITS ---
Subjective Subjective Date Seen: 06/17/23 Interval history: Ilan states that his abdomen is ?sore. ? This is unchanged from yesterday. Denies any vomiting or nausea overnight. He states that he has been belching. Is not passing gas. He is wondering if he can discharge home today. Exam Narrative: Exam Narrative: General: No acute distress CV: Regular rate Respiratory: Breathing nonlabored on room air Abdomen: Protuberant/distended. Soft. Nontender. No guarding or rebound. He does have bowel sounds but they are hypoactive. Const: Vital Signs, click to edit/add: Vital Signs - 24 hr 06/16/23 14:34 06/16/23 17:34 06/16/23 19:49 Temperature 96.7 F L 97.5 F L Pulse Rate [Pulse Oximeter] 88 77 87 Respiratory Rate 16 18 22 Blood Pressure [Le ft Arm] Blood Pressure [Ri ght Upper Arm] 159/66 H 134/79 138/80 Pulse Oximetry 95 97 100 Oxygen Delivery Me thod Room Air Room Air 06/16/23 22:17 06/16/23 23:00 06/16/23 23:00 Temperature 98.4 F 98.4 F Pulse Rate [Pulse Oximeter] 88 88 73 Respiratory Rate 20 20 20 Blood Pressure [Le ft Arm] 144/90 H 145/74 H Blood Pressure [Ri ght Upper Arm] Pulse Oximetry 98 94 Oxygen Delivery Me thod Room Air Room Air 06/17/23 03:00 06/17/23 07:35 Temperature 97.5 F L 98.1 F Pulse Rate [Pulse Oximeter] 84 85 Respiratory Rate 20 14 Blood Pressure [Le ft Arm] 146/80 H 167/90 H Blood Pressure [Ri ght Upper Arm] Pulse Oximetry 92 93 Oxygen Delivery Me thod Room Air Room Air Labs/Imaging Labs Labs: White blood cell count is normal though with a very slight left shift. Lactate trended down to normal. Mild hypokalemia. Progress Note: A&P Assessment and plan (1) SBO (small bowel obstruction): Problem details: NPO, IV fluids, pain medication, IV medications for chronic medical problems as needed. Anticipate conservative management with resolution of symptoms. Consult surgery. Status: Acute (2) Hypokalemia: Status: Acute Plan The patient is an 83-year-old male with a history of multiple abdominal surgeries and multiple bowel obstructions, approximately once a year at least for the past 3 years. He is hoping to avoid surgery if possible. I explained that since his labs are better today and he currently has no pain on exam it is reasonable to continue conservative management with bowel rest. His stomach was not significantly dilated on CT scan and he is not nauseated therefore I think it is reasonable to hold off on the NG tube. I did tell him that if he develops nausea and vomiting that I would recommend an NG tube. I explained that if his pain becomes worse, his white blood cell count goes up or he develops fever or other signs of systemic illness, then I would recommend emergency surgery. I would also recommend surgery if his obstruction fails to resolve after several days in the hospital on NPO status. He does have some amrik wel sounds today. Hopefully he will start passing gas shortly.
[2023-06-17 11:18] LABS: Magnesium* 1.6 mg/dL (1.5-2.6)
[2023-06-17] MEDS: POTASSIUM CHLORIDE 10 MEQ/100 ML PIGGYBACK 100 MEQ IVPB (11:21)
[2023-06-17 11:33] VITALS: BP 160/77; PULSE 87; RESP 16; TEMP 36.8; O2SAT 95
[2023-06-17 15:10] VITALS: BP 144/74; PULSE 78; RESP 16; TEMP 36.7; O2SAT 94
--- NOTE | 2023-06-17 15:44 | P.IMPN_ITS ---
Progress Note: A&P Assessment and plan (1) SBO (small bowel obstruction): Problem details: - continue NPO, IV fluids, pain medication, IV medications for chronic medical problems as needed. Anticipate conservative management with resolution of symptoms. Appreciate Dr. Crawley's recommendations. Status: Acute (2) Hypokalemia: Problem details: - Mild, asymptomatic. Replace via IV since patient is NPO. Magnesium is within normal limits. Recheck potassium in the morning. Status: Acute (3) Lactic acidosis: Problem details: Probably due to poor oral intake and vomiting. No obvious signs of infection. Lactate normalized after fluid resuscitation. Status: Resolved (4) Diabetes mellitus, type II: Problem details: - Reduced long-acting insulin. Sliding scale insulin q.6 hours. IV dextrose as needed Status: Acute Subjective Time Seen by Provider: 12:34 Date Seen: 06/17/23 Interval history: Ilan c/o hiccups. He has a h/o these but says they started 24 hours ago. He refuses NGT. He says he feels like he might have a BM next time he uses the bathroom, but also denies any flatus yet. Exam Narrative: Exam Narrative: General: No acute distress. Awake, alert, oriented x3. Somewhat tangential and told if you non sequitur stories in the middle of our conversation. No pallor. No jaundice. Oropharynx: Clear. Mucous membranes moist. Cardiovascular: Regular rate and rhythm. No murmurs, gallops, or rubs. Respiratory: Clear to auscultation bilaterally. No wheezes or crackles. Abdomen: Bowel sounds present but hypoactive. Distended, nontender. Extremities: No pedal edema. Const: Vital Signs, click to edit/add: Vital Signs - 24 hr 06/16/23 17:34 06/16/23 19:49 06/16/23 22:17 Temperature 97.5 F L 98.4 F Pulse Rate [Pulse Oximeter] 77 87 88 Respiratory Rate 18 22 20 Blood Pressure [Le ft Arm] 144/90 H Blood Pressure [Ri ght Upper Arm] 134/79 138/80 Pulse Oximetry 97 100 98 Oxygen Delivery Me thod Room Air Room Air 06/16/23 23:00 06/16/23 23:00 06/17/23 03:00 Temperature 98.4 F 97.5 F L Pulse Rate [Pulse Oximeter] 88 73 84 Respiratory Rate 20 20 20 Blood Pressure [Le ft Arm] 145/74 H 146/80 H Blood Pressure [Ri ght Upper Arm] Pulse Oximetry 94 92 Oxygen Delivery Me thod Room Air Room Air 06/17/23 07:35 06/17/23 11:33 06/17/23 15:10 Temperature 98.1 F 98.3 F 98.1 F Pulse Rate [Pulse Oximeter] 85 87 78 Respiratory Rate 14 16 16 Blood Pressure [Le ft Arm] 167/90 H 160/77 H 144/74 H Blood Pressure [Ri ght Upper Arm] Pulse Oximetry 93 95 94 Oxygen Delivery Me thod Room Air Room Air Room Air Labs Labs: Laboratory Results - last 24 hr 06/16/23 06/16/23 06/17/23 17:10 21:43 06:00 WBC 15.71 H 10.30 RBC 5.09 4.48 Hgb 16.0 14.3 Hct 47.9 42.0 MCV 94 94 MCH 31 32 MCHC 33 34 RDW Coeff of Javier 12.6 12.6 Plt Count 372 311 Neut % (Auto) 82.1 H 72.3 H Lymph % (Auto) 9.7 L 14.2 L Sunflower % (Auto) 8.0 12.6 H Eos % (Auto) 0.0 0.5 Baso % (Auto) 0.1 0.3 Neut # (Auto) 12.90 H 7.40 H Lymph # (Auto) 1.50 1.50 Sunflower # (Auto) 1.30 H 1.30 H Eos # (Auto) 0.00 0.05 Baso # (Auto) 0.00 0.03 Abs Immat Gran (auto) 0.00 0.01 Imm/Tot Granulo (auto) 0.1 0.1 VBG pH 7.413 VBG pCO2 43 VBG pO2 41.0 VBG HCO3 27 Sodium 140 138 Potassium 4.0 3.4 L Chloride 94 L 99 Carbon Dioxide 26 29 Anion Gap 20 H 10 BUN 33 H 33 H Creatinine 1.3 1.2 Estimated Creat Clear 48.66 52.71 Estimated GFR 55 60 Glucose 239 H 82 Lactate 5.8 H* 4.6 H* 1.5 Calcium 10.1 9.4 Magnesium 1.6 Total Bilirubin 1.5 Direct Bilirubin 0.0 AST 46 H ALT 69 H Alkaline Phosphatase 69 C-Reactive Protein 1.1 H Total Protein 8.4 H Albumin 4.7 Lipase 45 Lab Acknowledgement 06/17/23 10:53 WBC RBC Hgb Hct MCV MCH MCHC RDW Coeff of Javier Plt Count Neut % (Auto) Lymph % (Auto) Sunflower % (Auto) Eos % (Auto) Baso % (Auto) Neut # (Auto) Lymph # (Auto) Sunflower # (Auto) Eos # (Auto) Baso # (Auto) Abs Immat Gran (auto) Imm/Tot Granulo (auto) VBG pH VBG pCO2 VBG pO2 VBG HCO3 Sodium Potassium Chloride Carbon Dioxide Anion Gap BUN Creatinine Estimated Creat Clear Estimated GFR Glucose Lactate Calcium Magnesium Total Bilirubin Direct Bilirubin AST ALT Alkaline Phosphatase C-Reactive Protein Total Protein Albumin Lipase Lab Acknowledgement Test Added
--- NOTE | 2023-06-17 17:08 | PC.NURSE ---
Pt alert and oriented. Pt slept most of shift; awoke for bathroom and vss and medications. Pt stated he did not sleep well previous night. Pt had no complaints of pain; stated soreness in stomach. Pt SBA in room.?
[2023-06-17 19:45] VITALS: BP 147/69; PULSE 76; RESP 16; TEMP 36.7; O2SAT 94
[2023-06-17] MEDS: AMLODIPINE 5 MG TABLET PO (21:29)
[2023-06-17] MEDS: MELATONIN 3 MG TABLET PO (21:29)
[2023-06-17] MEDS: ENOXAPARIN 40 MG/0.4 ML INJ SUBCUT (21:29)
--- NOTE | 2023-06-17 23:29 | PC.NURSE ---
End of shift nursing note, care provided from [id number]: Pt alert and oriented, pleasant and cooperative. Vitals stable, on RA. Pt denies pain. Passing flatus. Voiding without difficulty, no BM this shift. Con't on LR at 125ml/hr. Blood glucose 100, updated and gave order to hold scheduled Levemir 20units this evening. Up SBA to bathroom. Pt's at bedside in evening, pleasant. Pt has call light within reach, using appropriately.
[2023-06-18 00:10] VITALS: BP 132/64; PULSE 68; RESP 16; TEMP 37; O2SAT 93
[2023-06-18 02:50] VITALS: BP 139/68; PULSE 69; RESP 16; TEMP 36.6; O2SAT 94
[2023-06-18] MEDS: LACTATED RINGERS 1000 ML 1,000 ML 125 ML IV (04:48)
[2023-06-18 07:16] LABS: Chloride* 99 mmol/L (96-114); Sodium* 137 mmol/L (135-149)
[2023-06-18 07:17] LABS: Potassium* 3.6 mmol/L (3.6-5.1)
[2023-06-18 07:19] LABS: Anion Gap 10 mEq/L (7-15); Carbon Dioxide* 28 mmol/L (20-32); Creatinine* 1.2 mg/dL (0.5-1.5); Est. Creatinine Clearance* 52.71; Estimated Glomerular Filt Rate 60 ml/min
[2023-06-18 07:20] LABS: Blood Urea Nitrogen* 24 mg/dL (7-30); Calcium* 8.9 mg/dL (8.4-10.6); Glucose* 140 mg/dL (60-115); Magnesium* 1.6 mg/dL (1.5-2.6)
--- NOTE | 2023-06-18 07:38 | PC.NURSE ---
Pt alert and oriented x3. Afebrile. Pt denies pain, chest pain, and N/V. SOB is noted with exertion. Pt is SBA with IV pole to bathroom. No BM overnight. Pt is passing gas. Pt slept throughout most of night and tolerating an NPO diet with sips and chips.
[2023-06-18 08:30] VITALS: BP 124/63; PULSE 75; RESP 20; TEMP 36.6; O2SAT 94
[2023-06-18] MEDS: SODIUM CHLORIDE 0.9 % (FLUSH) 10 ML SYRINGE 5 ML IVF (08:59)
[2023-06-18] MEDS: atenoloL 50 MG TABLET PO (08:59)
--- NOTE | 2023-06-18 10:41 | PM.GSPN ---
Subjective Subjective Date Seen: 06/18/23 Interval history: Patient is doing well. No nausea. No pain. He would like to go home. He is passing copious flattest from his bottom. Denies belching. He has not yet had a bowel movement. Exam Narrative: Exam Narrative: General: No acute distress CV: Regular rate Respiratory: Breathing nonlabored on room air Abdomen: Protuberant. Soft and nontender. Const: Vital Signs, click to edit/add: Vital Signs - 24 hr 06/17/23 11:33 06/17/23 15:10 06/17/23 19:45 Temperature 98.3 F 98.1 F 98.0 F Pulse Rate [Pulse Oximeter] 87 78 76 Respiratory Rate 16 16 16 Blood Pressure [Le ft Arm] 160/77 H 144/74 H 147/69 H Pulse Oximetry 95 94 94 Oxygen Delivery Me thod Room Air Room Air Room Air 06/18/23 00:10 06/18/23 00:10 06/18/23 02:50 Temperature 98.6 F 97.8 F Pulse Rate [Pulse Oximeter] 68 68 69 Respiratory Rate 16 16 16 Blood Pressure [Le ft Arm] 132/64 139/68 Pulse Oximetry 93 94 Oxygen Delivery Me thod Room Air Room Air 06/18/23 08:30 Temperature 97.9 F Pulse Rate [Pulse Oximeter] 75 Respiratory Rate 20 Blood Pressure [Le ft Arm] 124/63 Pulse Oximetry 94 Oxygen Delivery Me thod Room Air Labs/Imaging Labs Labs: Electrolytes within normal limits today. Progress Note: A&P Assessment and plan (1) SBO (small bowel obstruction): Problem details: - continue NPO, IV fluids, pain medication, IV medications for chronic medical problems as needed. Anticipate conservative management with resolution of symptoms. Appreciate Dr. Crawley's recommendations. Status: Acute Plan The patient is an 83-year-old male with small-bowel obstruction which appears to be resolving. He may have clear liquids today. If he has a bowel movement it is okay to advance his diet and discharge him, however I would keep him in the hospital until he has full return of bowel function.
--- NOTE | 2023-06-18 12:55 | PM.DS1 ---
DS: Providers Provider Time Seen by Provider: 09:52 Date Seen: 06/18/23 Date of admission: 06/16/23 19:50 Primary care physician: Merrill Mejia MD Admitting Clinician: Sincere Alfaro MD Consults: 06/16/23 19:53 Consult to Physician [CONS] Routine Comment: Consulting Provider: Nathalie Olmstead Has provider been notified: Yes Attending Physician on discharge: Alexus Leger MD Date of Discharge: 06/18/23 DS: Diagnosis Discharge Diagnosis (1) Hypokalemia: Status: Acute Problem details: - Mild, asymptomatic. Replaced. Resolved. (2) Lactic acidosis: Status: Resolved Problem details: Probably due to poor oral intake and vomiting. No obvious signs of infection. Lactate normalized after fluid resuscitation. (3) Partial small bowel obstruction: Status: Acute Problem details: - Initially NPO, IV fluids, pain medication, IV medications for chronic medical problems as needed. Dr. Crawley saw in consultation and recommended conservative management. Flatus started yesterday afternoon and had 2 BMs today. Tolerated regular diet. Discharging home. (4) Diabetes mellitus, type II: Status: Chronic (5) Hypertension: Status: Chronic DS: Summary Hospital Course Hospital Course: This is 83-year-old male with diabetes mellitus, hypertension, and history of recurrent small-bowel obstructions who presented with 1 and half days of abdominal pain and vomiting. He started having recurrent small-bowel obstructions when he was [age] years old after having appendicitis. He is unsure if he had any additional surgeries as a child, but as an adult has never had any abdominal surgery for lysis of adhesion, just hospitalizations with conservative management. He has had other abdominal surgeries including cholecystectomy, abdominal prostatectomy, and hernia repair. It is unclear if he has also had a colectomy. He was admitted NPO with IV fluids and on hospital day 2. In the afternoon he started having flatus. By the next hospital day he had had more flatus and advanced to clears. He then had 2 bowel movements and tolerated a regular diet. He is discharged home today in stable and improved condition. Time Spent with Patient Time attestation: Total time spent providing and/or coordinating discharge services: Exam Narrative: Exam Narrative: General: No acute distress. Awake, alert, oriented x3. No pallor. No jaundice. Oropharynx: Clear. Mucous membranes moist. Cardiovascular: Regular rate and rhythm. No murmurs, gallops, or rubs. Respiratory: Clear to auscultation bilaterally. No wheezes or crackles. Abdomen: Bowel sounds present. Soft, less distended, nontender to palpation. Const: Vital Signs, click to edit/add: Vital Signs - 24 hr 06/17/23 15:10 06/17/23 19:45 06/18/23 00:10 Temperature 98.1 F 98.0 F Pulse Rate [Pulse Oximeter] 78 76 68 Respiratory Rate 16 16 16 Blood Pressure [Le ft Arm] 144/74 H 147/69 H Pulse Oximetry 94 94 Oxygen Delivery Me thod Room Air Room Air 06/18/23 00:10 06/18/23 02:50 06/18/23 08:30 Temperature 98.6 F 97.8 F 97.9 F Pulse Rate [Pulse Oximeter] 68 69 75 Respiratory Rate 16 16 20 Blood Pressure [Le ft Arm] 132/64 139/68 124/63 Pulse Oximetry 93 94 94 Oxygen Delivery Me thod Room Air Room Air Room Air DS: Data Data Completed and Pending Completed studies during hospitalization: Ordering Physician: Marjorie Monson M.D. Date of Service: 06/16/23 Procedure(s): XR abdomen min 2V Accession Number(s): [id number] cc: Merrill Mejia M.D.; Marjorie Monson M.D.~ For Patients: As a result of the Cures Act, medical imaging exams and procedure reports are released immediately into your electronic medical record. You may view this report before your referring provider. If you have questions, please contact your health care provider. Indication: Abdominal pain TECHNIQUE: Flat and upright abdomen. FINDINGS: Dilated loops of small bowel with air-fluid levels compatible with small bowel obstruction. No free air. Right lower lobe calcified granuloma. Prostatectomy clips. Dictated by Triston Bojorquez MD @ 06/16/2023 5:08:27 PM (Electronically Signed) Ordering Physician: Marjorie Monson M.D. Date of Service: 06/16/23 Procedure(s): CT abdomen pelvis w con Accession Number(s): [id number] cc: Merrill Mejia M.D.; Marjorie Monson M.D.~ For Patients: As a result of the 21st Century Cures Act, medical imaging exams and procedure reports are released immediately into your electronic medical record. You may view this report before your referring provider. If you have questions, please contact your health care provider. INDICATION: SBO TECHNIQUE: CT abdomen and pelvis acquired with 100 cc Isovue 370 IV contrast. COMPARISON: CT August 2022. FINDINGS: Lower chest: Calcified granulomas. ABDOMEN: Liver: Normal enhancement. No focal suspicious hepatic lesions. Gallbladder and biliary: Cholecystectomy. Normal caliber bile ducts. Spleen: Calcified splenic granulomas. Pancreas: Normal enhancement without peripancreatic inflammatory changes or ductal dilatation. Adrenal glands: Normal adrenal glands. Kidneys and ureters: Normal enhancement. No radio-opaque calculi. No hydroureteronephrosis. GI tract: Stomach is partially distended with fluid. Fluid filled dilated loops of mid small bowel loops with transition point abutting the umbilicus with decompressed loops of distal small bowel. Appendix is not definitively visualized. Colonic diverticulosis without diverticulitis. Vascular structures: Patent abdominal aorta with atherosclerotic vascular calcifications. Lymph nodes: No lymphadenopathy in the abdomen or pelvis by size criteria. Peritoneum: No free air, free fluid, or focal drainable fluid collection. PELVIS: Genitourinary system: Normal urinary bladder. Prostatectomy. Pelvic sidewall rosana dissection. SKELETAL STRUCTURES AND SOFT TISSUES: Lumbar spondylosis. IMPRESSION: At least high-grade partial small-bowel obstruction with transition point at the level of the umbilicus. Please note that all CT scans at this facility use dose modulation, iterative reconstruction, and/or weight-based dosing when appropriate to reduce radiation dose to as low as reasonably achievable. Dictated by Gil Gutierrez MD @ 06/16/2023 6:41:16 PM (Electronically Signed) Labs on day of discharge: Labs from last 24 hours 06/18/23 06:37 Sodium 137 Potassium 3.6 Chloride 99 Carbon Dioxide 28 Anion Gap 10 BUN 24 Creatinine 1.2 Estimated Creat Clear 52.71 Estimated GFR 60 Glucose 140 H Calcium 8.9 Magnesium 1.6 Discharge Plan Discharge Disposition: Home, Self-Care Date of Admission: 06/16/23 19:50 Attending Provider on Discharge: Alexus Leger Consulting Providers: Nathalie Olmstead Primary Care Provider: Merrill Mejia Condition: Stable Anticipated Discharge Date/Time: 06/18/23 13:06 Discharge Medications: Continued magnesium oxide 400 mg (241.3 mg magnesium) tablet 400 mg PO .2 X Week multivitamin Tablet 1 tab PO DAILY cholecalciferol (vitamin D3) 25 mcg (1,000 unit) tablet 25 mcg PO DAILY melatonin 5 mg tablet 5 mg PO HS PRN atenolol-chlorthalidone 50-25 mg tablet 1 tab PO DAILY Qty: 90 3RF losartan 100 mg tablet 100 mg PO DAILY Qty: 90 3RF simvastatin 20 mg tablet 20 mg PO HS Qty: 90 3RF amlodipine 2.5 mg tablet 5 mg PO HS Qty: 180 3RF Rx Instructions: take at night insulin glargine 100 unit/mL (3 mL) insulin pen 58 - 65 unit subcut HS Qty: 45 2RF Rx Instructions: Fill on patients call Myrbetriq 50 mg tablet extended release 24 hr 50 mg PO DAILY lidocaine 5 % adhesive patch,medicated 1 patch topical DAILY PRN (Reason: pain) metformin 500 mg tablet extended release 24 hr 500 mg PO DAILY eszopiclone 2 mg tablet 2 mg PO HS PRN (Reason: sleep) fluorouracil 5 % cream 1 applic topical .COMPLEX Rx Instructions: 1 applic topical twice a week; (DME) Accu-Chek Negin Plus test strp Strip See Rx Instructions .Route Qty: 100 8RF Rx Instructions: As directed, test twice daily. (DME) pen needle, diabetic [BD Ultra-Fine Short Pen Needle] 31 gauge x 5/16 needle See Rx Instructions .Route Qty: 100 6RF Rx Instructions: Once daily at bedtime (DME) lancets [Accu-Chek Softclix Lancets] Misc See Rx Instructions .Route Qty: 200 0RF Rx Instructions: test blood sugar twice daily Discontinued ibuprofen-diphenhydramine cit 200-38 mg tablet 2 cap PO .Bedtime as needed PRN Discharge Orders: Discharge Order (Routine); Ordered 06/18/23 Ordered By: Alexus Leger Patient Education: Insomnia (DC), Bowel Obstruction (DC) Additional Instructions: I recommend that you stop taking diphenhydramine for sleep since it could be problematic at your age. It also may be slowing down your gut. If insominia continues to be a problem, use melatonin, develop a sleep routine and further discuss this with your primary care provider. Activity Level: No Restrictions Discharge Diet: Regular Follow Up Appointments: Merrill Mejia MD [Primary Care Provider] - Forms: MyHealth Info Instructions
== END 2023-06-18 15:19 | disposition home or self-care (01) | DRG 389 ==
LOC: ED 19:35 → MEDSURG 06-17 14:40
PROVIDERS: Family Medicine; Admitting Provider Family Medicine; Emergency Provider Family Medicine; PCP Family Medicine; Visit Provider Family Medicine
DX: K56.600 Partial intestinal obstruction, unspecified as to cause (principal); E87.21 Acute metabolic acidosis; E11.8 Type 2 diabetes mellitus with unspecified complications; E86.0 Dehydration; I10 Essential (primary) hypertension; Z79.4 Long term (current) use of insulin; Z79.84 Long term (current) use of oral hypoglycemic drugs; Z85.820 Personal history of malignant melanoma of skin; Z85.828 Personal history of other malignant neoplasm of skin; E87.6 Hypokalemia
CPT/HCPCS: 36415; 74019; 74177; 80048; 80076; 82803; 82962; 83605; 83690; 83735; 85025; 86140; 99284; 99285; A9270; J1650; J2405; J3480; J7120; Q9967

== ENCOUNTER 2023-08-14 10:03 | Outpatient (CLI) | payer MEDICARE, BC, SELFPAY | END 2023-08-14 10:04 | disposition home or self-care (01) | LOC: NFLDREF 08-16 11:14 | PROVIDERS: PCP Family Medicine; Referring Provider Family Medicine; Visit Provider Family Medicine | DX: C61 Malignant neoplasm of prostate (principal); E78.00 Pure hypercholesterolemia, unspecified; I10 Essential (primary) hypertension; E13.9 Other specified diabetes mellitus without complications | CPT/HCPCS: 80053; 80061; 82043; 82570; 84153 ==

== ENCOUNTER 2023-08-29 09:41 | Outpatient (CLI) | payer MEDICARE, BC, SELFPAY | END 2023-08-29 09:42 | disposition home or self-care (01) | PROVIDERS: PCP Family Medicine; Visit Provider Family Medicine | DX: R53.83 Other fatigue (principal); E11.40 Type 2 diabetes mellitus with diabetic neuropathy, unspecified; E78.00 Pure hypercholesterolemia, unspecified; I10 Essential (primary) hypertension; R35.1 Nocturia; E88.09 Other disorders of plasma-protein metabolism, not elsewhere classified | CPT/HCPCS: 83735; 84443; 86140 ==

== ENCOUNTER 2023-09-12 11:05 | Emergency (ER) | payer MEDICARE, BC, SELFPAY ==
[2023-09-12 11:13] VITALS: BP 146/83; PULSE 81; RESP 16; TEMP 36.1; O2SAT 98; BMI 27.0
--- NOTE | 2023-09-12 11:31 | ED.GENADULT ---
HPI - General Adult General Date Seen: 09/12/23 Chief complaint: Abdominal Pain Stated complaint: Needs CT--abdominal pain, lethargy Time Seen by Provider: 09/12/23 11:26 History of Present Illness HPI narrative: This is an 83-year-old gentleman referred to the ER today from his primary care provider, Dr. Mejia for evaluation of abdominal pain and needs CT scan. He has a past medical history of bowel obstruction a few months ago,polymyalgia rheumatica, chronic pain, macular degeneration, hypertension, high cholesterol, prostate cancer, type 2 diabetes, diabetic neuropathy,hearing loss Her he reports that he has actually had symptoms for about 5 weeks. About 5 weeks ago he had an episode of substernal chest discomfort and left neck pain. He was seen at a [facility] for that apparently had a heart workup in the hospital and then a follow-up outpatient stress test that he says were normal. As far as he knows he did not have a heart attack. He has not had any recurrent chest pains since that time. He says he was told they think he might have had a muscle spasm in his chest. Since then he has had trouble with a lot of fatigue and sleepiness. He has had low energy, poor appetite, and increased sleep. His says he has been sleeping as much as 16 hours per day. The fatigue and sleepiness have been fluctuating day today but have been fairly persistent over the past 5 weeks. He has had a couple of followups with his regular doctor for that. Labs: 08/29 WBC 12.9, hemoglobin 14.5, platelet count 4 81 ESR 81 CRP 6.8 TSH 1.55 magnesium 1.7 Based on his lab work from August 29, his doctor put him on prednisone. Initially at 40 mg per day. He is now titrated down to 20 mg per day and in a few days will titrate down to 10 mg per day. It sounds like his doctor was suspecting possible PMR causing elevated inflammatory markers. He has had a poor appetite. He has lost 6 lb since last week. He is not nauseous. No abdominal pain. No fever. No cough. No trouble breathing. No recurrent chest pains. No palpitations. He has had some dizziness for the past couple of days. He went back to his primary care office this morning for checkup. On the doctors exam he was noted to have left lower quadrant tenderness (but had not been having pain prior to that) so was referred here to have a CT scan to look for possible diverticulitis. He does have a history of adhesions and multiple previous bowel obstructions. Lately he has been tending toward constipation so has been having a stool about every other day. When he gets constipated he will usually take MiraLax that his mixes for him and that works effectively for him. He has not really had any new constipation or diarrhea or any black or bloody stools. Urination has been normal. He had a urinalysis at his doctor's office last week that he thinks was normal. Most recent hospitalization for SBO was in June, it resolved with supportive care while in the hospital.. Related Data Home Medications Medication Instructions Recorded Confirmed fluorouracil 5 % topical cream 1 applic topical .COMPLEX 03/14/22 09/12/23 cholecalciferol (vitamin D3) 25 25 mcg PO DAILY 04/10/22 09/12/23 mcg (1,000 unit) tablet magnesium oxide 400 mg (241.3 mg 400 mg PO .2 X Week 04/10/22 09/12/23 magnesium) tablet melatonin 5 mg tablet 5 mg PO HS PRN 04/10/22 09/12/23 multivitamin 1 tab PO DAILY 04/10/22 09/12/23 mirabegron 50 mg tablet,extended 50 mg PO DAILY 05/21/23 09/12/23 release 24 hr (Myrbetriq) eszopiclone 2 mg tablet 2 mg PO HS PRN sleep 06/17/23 09/12/23 lidocaine 5 % topical patch 1 patch topical DAILY PRN pain 06/17/23 09/12/23 metformin 500 mg tablet,extended 500 mg PO DAILY 06/17/23 09/12/23 release 24 hr Previous Rx's Medication Instructions Recorded pen needle, diabetic 31 gauge x #100 ea 10/04/2201/15 (BD Ultra-Fine Short Pen Needle) amlodipine 2.5 mg tablet 5 mg (2 x 2.5 mg) PO HS #180 tabs 02/19/23 insulin glargine 100 unit/mL (3 58 - 65 unit (0.58 - 0.65 mL) 02/19/23 mL) subcutaneous pen subcut HS #45 mL lancets (Accu-Chek Softclix #200 ea 08/13/23 Lancets) atenolol 50 mg-chlorthalidone 25 1 tab PO DAILY #90 tabs 08/20/23 mg tablet gabapentin 100 mg capsule 100 mg PO QHS #30 caps 08/20/23 losartan 100 mg tablet 100 mg PO DAILY #90 tabs 08/20/23 simvastatin 20 mg tablet 20 mg PO HS #90 tabs 08/20/23 blood sugar diagnostic (Accu-Chek #100 ea 08/30/23 Negin Plus test strips) prednisone 20 mg tablet 20 mg PO QDAY #30 tabs 09/05/23 blood-glucose meter (Accu-Chek #1 ea 09/06/23 Guide Glucose Meter) apixaban 5 mg tablet (Eliquis) 5 mg PO BID #60 tabs 09/12/23 Allergies Allergy/AdvReac Type Severity Reaction Status Date / Time No Known Drug Allergies Allergy Verified 09/12/23 11:13 [facility] Medical History (Updated 09/12/23 @ 16:04 by Ilna Coto MD) Medicare annual wellness visit, subsequent ?Z00.00 - Encounter for general adult medical examination without abnormal findings (ICD-10) Partial small bowel obstruction (1990) ?K56.600 - Partial intestinal obstruction, unspecified as to cause (ICD-10) Nocturia ?R35.1 - Nocturia (ICD-10) Partial bowel obstruction ?K56.600 - Partial intestinal obstruction, unspecified as to cause (ICD-10) Herpes zoster ?B02.9 - Zoster without complications (ICD-10) Cough ?R05.9 - Cough, unspecified (ICD-10) History of squamous cell carcinoma ?Z85.89 - Personal history of malignant neoplasm of other organs and systems (ICD-10) History of Mohs micrographic surgery for skin cancer ?Z85.828 - Personal history of other malignant neoplasm of skin (ICD-10) ?Z98.890 - Other specified postprocedural states (ICD-10) History of malignant melanoma (1987) ?Z85.820 - Personal history of malignant melanoma of skin (ICD-10) History of basal cell carcinoma (BCC) (2016) ?Z85.828 - Personal history of other malignant neoplasm of skin (ICD-10) Surgical History (Updated 06/16/23 @ 20:14 by Sincere Alfaro MD) History of abdominal prostatectomy (12/07/09) ?Z90.79 - Acquired absence of other genital organ(s) (ICD-10) History of hernia repair (08/15/92) ?Z98.890 - Other specified postprocedural states (ICD-10) ?Z87.19 - Personal history of other diseases of the digestive system (ICD-10) History of cholecystectomy (06/09/04) ?Z90.49 - Acquired absence of other specified parts of digestive tract (ICD-10) History of appendectomy ?Z90.49 - Acquired absence of other specified parts of digestive tract (ICD-10) History of tonsillectomy ?Z90.89 - Acquired absence of other organs (ICD-10) History of cataract extraction ?Z98.49 - Cataract extraction status, unspecified eye (ICD-10) History of bunionectomy of left great toe (09/05/11) ?Z98.890 - Other specified postprocedural states (ICD-10) History of arthroscopy of left knee (12/10/13) ?Z98.890 - Other specified postprocedural states (ICD-10) Family History (Updated 06/16/23 @ 20:14 by Sincere Alfaro MD) Mother Malignant melanoma Father Heart disease Social History (Updated 06/16/23 @ 20:16 by Sincere Alfaro MD) Narrative: He lives independently in [place] with his . Their home is set up for excess ability with handicaps. is healthcare power of senior attorney. 3 children are power senior attorney if his is incapable of decision making. Code status is full. He is very clear that he does not want to live on life support or with severe disability. He does not smoke. He drinks 1 alcoholic beverage per week What is your current living situation?: I presently have a place to live Problems where you live: no known problems and unable to answer Problems where you live details: NA In the past 12 months, utilities in danger of being shut off: no In past 12 months, lack of transportation kept you from medical appts, meetings, work, or getting things needed for daily living: no In the past 12 mos, have been you worried that your food would run out before you had money to buy more?: never true In the past 12 mos, the food you bought just didn't last and you didn't have money to buy more?: never true Highest level of school completed/degree received: Bachelor's degree Smoking Status: Never smoker Do you use any of these nicotine containing products: None Second hand tobacco smoke exposure: No How often do you have a drink containing alcohol: monthly or less Alcohol type: wine Alcohol type details: 1 glass of wine 2 times a week How many standard drinks containing alcohol do you have on a typical day: 1 or 2 AUDIT-C Alcohol total score: 1 Non-prescribed substance use: denies use Caffeine: Yes How often does anyone, including family, friends and others, physically hurt you: never How often does anyone, including family, friends and others, insult or talk down to you: never How often does anyone, including family, friends and others, threaten you with harm: never How often does anyone, including family, friends and others, scream or curse at you: never Little interest or pleasure in doing things: not at all Feeling down, depressed, or hopeless: several days service: No Exam Narrative: Exam Narrative: Constitutional: Appears well-developed and well-nourished. Alert. Conversant , polite, hard of hearing.. Non toxic. HENT: Head: Atraumatic. Nose: Nose normal. Mouth/Throat: Oral mucosa is clear and moist. no trismus. Pharynx normal. Tonsils symmetric. No tonsillar enlargement, erythema, or exudate. Tongue is pink. Eyes: Conjunctivae normal. EOM normal. Pupils equal, round, and reactive to light. No scleral icterus. Neck: Normal range of motion. Neck supple. No tracheal deviation present. No JVD. Cardiovascular: Normal rate, regular rhythm in the 80s on the monitor. No gallop. No friction rub. No murmur heard. Symmetric radial And PTartery pulses Pulmonary/Chest: Effort normal. No stridor. No respiratory distress. No wheezes. No rales. No rhonchi . No tenderness. Abdominal: Soft. Bowel sounds normal. No distension. No mass. left lower quadrant tenderness. no CVA tenderness. No palpable mass.No rebound. No guarding. Musculoskeletal: RUE: Normal range of motion. No tenderness. No deformity LUE: Normal range of motion. No tenderness. No deformity RLE: Normal range of motion. No edema. No tenderness. No deformity LLE: Normal range of motion. No edema. No tenderness. No deformity Lymph: No cervical adenopathy. Neurological: Alert and oriented to person, place, and time. Normal strength. CN II-VII intact. No sensory deficit. GCS eye subscore is 4. GCS verbal subscore is 5. GCS motor subscore is 6. Normal coordination Skin: Skin is warm and dry. No rash noted. No pallor. Normal capillary refill. Psychiatric: Normal mood. Normal affect. Const: Vital Signs, click to edit/add: Vital Signs - 24 hr 09/12/23 11:13 09/12/23 12:00 09/12/23 15:43 Temperature 97.0 F L Pulse Rate [Pulse Oximeter] 81 80 80 Respiratory Rate 16 Blood Pressure [Ri ght Upper Arm] 146/83 H 140/66 H Pulse Oximetry 98 96 95 Oxygen Delivery Me thod Room Air Room Air Course Vital Signs Vital signs: Initial Vital Signs Temperature 97.0 F L 09/12/23 11:13 Temperature Source Temporal Artery Scan 09/12/23 11:13 Pulse Rate 81 09/12/23 11:13 Respiratory Rate 16 09/12/23 11:13 Blood Pressure 146/83 H 09/12/23 11:13 Blood Pressure Mean 104 09/12/23 11:13 Blood Pressure Position High-Fowlers 09/12/23 11:13 Pulse Oximetry 98 09/12/23 11:13 Oxygen Delivery Method Room Air 09/12/23 11:13 Vital Signs Temperature 97.0 F L 09/12/23 11:13 Pulse Rate 81 09/12/23 11:13 Respiratory Rate 16 09/12/23 11:13 Blood Pressure 146/83 H 09/12/23 11:13 Pulse Oximetry 98 09/12/23 11:13 Oxygen Delivery Method Room Air 09/12/23 11:13 Temperature 97.0 F L 09/12/23 11:13 Pulse Rate 80 09/12/23 15:43 Respiratory Rate 16 09/12/23 11:13 Blood Pressure 140/66 H 09/12/23 12:00 Pulse Oximetry 95 09/12/23 15:43 Oxygen Delivery Method Room Air 09/12/23 15:43 Medical Decision Making MDM Narrative Medical decision making narrative: this is a pleasant 83-year-old gentleman presenting to the ER today with 5 weeks of ongoing fatigue and sleepiness with recurrent primary care visits and workup as an outpatient without any clear explanation. He was sent to the ER today because when he recheck with his primary care provider he had left lower quadrant tenderness. He was sent to the ER today with concern for GI pathology such as diverticulitis or obstruction as a cause for symptoms. CT scan is obtained and shows nonspecific fluid levels but no other clear diverticulitis or infection. Lab workup does show leukocytosis and thrombocytosis which is similar to labs from clinic last week. Urinalysis is negative. No other clear infection. No evidence for cellulitis, joint infection. No rash or stigmata of endocarditis. No fever headache to suggest meningitis. At this point unclear why his white count is elevated. Of note he did have a elevated ESR clinic last week and has been on prednisone since then. Her ESR is improved from 81 to 6. fairly at this point I do not see a clear indication for antibiotics. He has had a couple of at home COVID test that are negative and has not had any symptoms of COVID such as cough, nasal congestion, or sore throat. thyroid was normal in clinic last week. Sodium electrolytes are normal. Kidney function normal. Head CT is obtained to evaluate for hydrocephalus or chronic subdural ( Although has no reported falls) that might be causing his lethargy. Head CT is normal. EKG today shows atrial flutter with 4:1 av conduction. This is a new finding for him. He has never had known cardiac disease or AFib or a flutter in the past. He did not have AFib during his workup at [facility] last month for chest pain. Chest CT is obtained look for potential causes of right heart strain. CT is negative for PE, pneumonia, CHF, or other clear link to a flutter. workup with troponin and BNP are reassuring here in the ER today. No evidence for failure related to atrial flutter. At this point he is well rate controlled with heart rate in the 80s and 4:1 conduction. Unclear exact time of onset 1st flutter. We know that it is a new finding compared to when he was at [facility] last month. 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 At this point would not be safe for direct electrical cardioversion here in the ER due to risk of stroke. Chads 2 Vasc score is 4. Discussed with cardiology from [facility], Dr. Ellis. He agrees that the patient is appropriate for outpatient follow-up and will arrange to have the cardiology clinic contact the patient to arrange a close outpatient appointment. He also agrees with the plan to start the patient on Eliquis for stroke prophylaxis so that if the AFib persisted the time of follow-up he would be more quickly able to get the patient in for cardioversion. At this point no need to change beta-blockers or calcium channel lv since the patient is rate controlled. Patient is comfortable plan for outpatient management. I sent in a prescription for Eliquis. I was contacted by the patient's pharmacy. However this is not covered by the patient's insurance And costs in excess of 500 dollars out of pocket. We will change the prescription to Xarelto 20 mg once daily. We believe this will be covered by the patient's insurance. patient understands the risk of bleeding on blood thinners. At this point we agree that the benefit of stroke prophylaxis outweighs the risk. Lab Data Labs: Lab Results 09/12/23 09/12/23 09/12/23 Range/Units 12:22 12:30 13:40 WBC 13.99 H (4.50-11.00) K/uL RBC 5.12 (4.30-5.90) m/uL Hgb 15.9 (13.5-17.5) gm/dL Hct 49.1 (37.0-53.0) % MCV 96 (80-100) fL MCH 31 (26-34) pg MCHC 32 (32-36) gm/dL RDW Coeff of Javier 12.2 (11.5-15.5) % Plt Count 540 H (140-440) K/uL Neut % (Auto) 81.8 H (42.0-72.0) % Lymph % (Auto) 13.4 L (20-44) % [place] % (Auto) 3.7 (0.0-11.0) % Eos % (Auto) 0.2 (0.0-7.0) % Baso % (Auto) 0.1 (0.0-3.0) % Neut # (Auto) 11.40 H (1.7-7.0) K/uL Lymph # (Auto) 1.90 (0.90-2.90) K/uL [place] # (Auto) 0.50 (0.00-0.90) K/UL Eos # (Auto) 0.00 (0.00-0.50) K/uL Baso # (Auto) 0.00 (0.00-0.30) K/uL Abs Immat Gran (auto) 0.10 (0.00-0.30) K/uL Imm/Tot Granulo (auto) 0.8 % ESR 6 (2-15) mm/hr Sodium 139 (135-149) mmol/L Potassium 4.3 (3.6-5.1) mmol/L Chloride 102 (96-114) mmol/L Carbon Dioxide 31 (20-32) mmol/L Anion Gap 6 L (7-15) mEq/L BUN 32 H (7-30) mg/dL Creatinine 1.4 (0.5-1.5) mg/dL Estimated Creat Clear 45.18 Estimated GFR 50 ml/min Glucose 102 (60-115) mg/dL Lactate 2.3 H (0.5-1.9) mmol/L Calcium 9.5 (8.4-10.6) mg/dL Total Bilirubin 0.8 (0.1-1.5) mg/dL AST 33 (12-35) U/L ALT 71 H (4-50) U/L Alkaline Phosphatase 71 (40-150) U/L Troponin I < 0.01 L (0.01-0.04) ng/mL NT-Pro-B Natriuret Pep 1010 pg/mL Total Protein 7.3 (6.0-8.3) g/dL Albumin 4.2 (3.3-5.0) g/dL Lipase 141 (23-300) U/L Urine Color Yellow (Yellow) Urine Appearance Clear (Clear) Urine pH 6.5 (5.0-8.5) Ur Specific [place] 1.015 (1.000-1.030) Urine Protein Negative (Negative) Urine Glucose (UA) Negative (Negative) Urine Ketones Negative (Negative) Urine Blood Negative (Negative) Urine Nitrite Negative (Negative) Urine Bilirubin Negative (Negative) Urine Urobilinogen 0.2 (0.2-1.0) Ur Leukocyte Esterase Negative (Negative) Urine RBC 0-2 (0-2) Urine WBC 0-2 (0-5) Ur Squamous Epith Cells None (None-Few) Urine Bacteria None (None) Lab Acknowledgement Test Added Imaging Data CT scan - head: Attestation: I have reviewed the pertinent imaging results. Radiologist's impression: IMPRESSION: No acute intracranial abnormality. CT scan - abdomen: Attestation: I have reviewed the pertinent imaging results. Radiologist's impression: IMPRESSION: Few prominent loops of nondilated fluid-filled small bowel in the left mid abdomen, may reflect enteritis. No evidence of small-bowel obstruction. CT scan - chest: Attestation: I have reviewed the pertinent imaging results. Radiologist's impression: IMPRESSION: No evidence of acute pulmonary embolus, within limitations of motion artifact. ECG Data Attestation: I personally reviewed and interpreted this ECG as follows: Interpretation: Atrial flutter with 4:1 av conduction. Rate 79 KS Na QRS axis normal axis. No pathologic Q-waves. ST segment/T wave: No ST segment elevation or depression. Flutter wave interference with the T-waves gives the appearance of inferior or anterolateral ischemia but it do not think this is a true finding per QTc: 403 Prior EKG from August 2022 showed sinus rhythm. Discharge Plan Discharge Clinical Impression: Atrial flutter Patient Disposition: Home, Self-Care Condition: Stable Instructions: Atrial Flutter (DC) Additional Instructions: you will receive a phone call from the clean out driller helper at [facility] to arrange an appointment. Please recheck with them within 1-2 weeks. Until your appointment, continue on your normal medications. Also start taking the new blood thinner to prevent strokes from your atrial flutter. If you have any worsening symptoms such as episodes of chest pain, palpitations, worsening dizziness, worsening weakness, please come back to the ER. Being on the blood thinner will help reduce the chance that you would have a stroke from atrial flutter. It probably will not make you feel better or make the flutter go away. You will need to it see the clean out driller helper for follow-up treatment. You will probably need a cardioversion, which can only be done safely after you have been on blood thinner for a couple of weeks. if your insurance does not cover Eliquis, ask the pharmacist to call the [place] [facility] at [phone] so we can change her prescription to a medication that your insurance will cover. Prescriptions: New Eliquis 5 mg tablet 5 mg PO BID Qty: 60 2RF No Action magnesium oxide 400 mg (241.3 mg magnesium) tablet 400 mg PO .2 X Week multivitamin Tablet 1 tab PO DAILY cholecalciferol (vitamin D3) 25 mcg (1,000 unit) tablet 25 mcg PO DAILY melatonin 5 mg tablet 5 mg PO HS PRN amlodipine 2.5 mg tablet 5 mg PO HS Qty: 180 3RF Rx Instructions: take at night insulin glargine 100 unit/mL (3 mL) insulin pen 58 - 65 unit subcut HS Qty: 45 2RF Rx Instructions: Fill on patients call Myrbetriq 50 mg tablet extended release 24 hr 50 mg PO DAILY atenolol-chlorthalidone 50-25 mg tablet 1 tab PO DAILY Qty: 90 3RF losartan 100 mg tablet 100 mg PO DAILY Qty: 90 3RF simvastatin 20 mg tablet 20 mg PO HS Qty: 90 3RF gabapentin 100 mg capsule 100 mg PO QHS Qty: 30 2RF lidocaine 5 % adhesive patch,medicated 1 patch topical DAILY PRN (Reason: pain) metformin 500 mg tablet extended release 24 hr 500 mg PO DAILY eszopiclone 2 mg tablet 2 mg PO HS PRN (Reason: sleep) fluorouracil 5 % cream 1 applic topical .COMPLEX Rx Instructions: 1 applic topical twice a week; (DME) pen needle, diabetic [BD Ultra-Fine Short Pen Needle] 31 gauge x 5/16 needle See Rx Instructions .Route Qty: 100 6RF Rx Instructions: Once daily at bedtime (DME) lancets [Accu-Chek Softclix Lancets] Misc See Rx Instructions .Route Qty: 200 0RF Rx Instructions: test blood sugar twice daily (DME) Accu-Chek Negin Plus test strp Strip See Rx Instructions .Route Qty: 100 8RF Rx Instructions: As directed, test twice daily. prednisone 20 mg tablet 20 mg PO QDAY Qty: 30 0RF Rx Instructions: 1 pill a day, then 1/2 a day, plan f/u (DME) blood-glucose meter [Accu-Chek Guide Glucose Meter] Misc See Rx Instructions .Route Qty: 1 0RF Rx Instructions: Patient to use to test blood sugars twice daily Follow Up/Referrals: Merrill Mejia MD [Primary Care Provider] - Stand Alone Forms: [employer] Info Instructions
--- NOTE | 2023-09-12 11:39 | CRLHL7_ITS ---
For Patients: As a result of the Century Cures Act, medical imaging exams and procedure reports are released immediately into your electronic medical record. You may view this report before your referring provider. If you have questions, please contact your health care provider. INDICATION: Abdominal pain. Suspect small bowel obstruction. TECHNIQUE: CT abdomen and pelvis acquired with 98 mL Isovue 370 IV contrast. COMPARISON: CT abdomen/pelvis dated 06/16/2023. FINDINGS: Lower chest: No focal consolidation. Large calcified granulomas. Liver: No suspicious focal hepatic lesion. Gallbladder and bile ducts: Post cholecystectomy. Pancreas: Unremarkable. Spleen: Calcified granulomas. Adrenal glands: Unremarkable. Kidneys: Kidneys enhance symmetrically, without hydronephrosis. Retroperitoneum: No lymphadenopathy. Bowel and mesentery: Bowel is not obstructed. No significant ascites. No pneumoperitoneum. Scattered colonic diverticulosis, without evidence of acute diverticulitis. Few prominent loops of nondilated fluid-filled small bowel in the left mid abdomen. Bladder: Unremarkable for degree of distension. Reproductive organs: Post prostatectomy. Pelvic lymph nodes: Prior pelvic lymph node dissection. No lymphadenopathy. Vessels: Scattered atherosclerotic calcifications. Abdominal wall: No acute abdominal wall abnormality. Bones: Extensive multilevel degenerative changes of the spine. Bones are osteopenic. IMPRESSION: Few prominent loops of nondilated fluid-filled small bowel in the left mid abdomen, may reflect enteritis. No evidence of small-bowel obstruction. Please note that all CT scans at this facility use dose modulation, iterative reconstruction, and/or weight-based dosing when appropriate to reduce radiation dose to as low as reasonably achievable. Dictated by Linsey Encinas MD @ 09/12/2023 2:17:50 PM (Electronically Signed)
[2023-09-12 12:00] VITALS: BP 140/66; PULSE 80; O2SAT 96
--- NOTE | 2023-09-12 12:05 | CRLHL7_ITS ---
For Patients: As a result of the Century Cures Act, medical imaging exams and procedure reports are released immediately into your electronic medical record. You may view this report before your referring provider. If you have questions, please contact your health care provider. INDICATION: Fatigue, sleepiness. TECHNIQUE: CT head without contrast. COMPARISON: None. FINDINGS: Cerebral parenchyma: No evidence of acute territorial infarct. No acute intraparenchymal hemorrhage. No significant mass effect/midline shift. Normal horton-white matter differentiation. Extra-axial spaces: No extra-axial collection or hemorrhage. Ventricles: Unremarkable. Calvarium: Intact. Visualized paranasal sinuses/mastoid air cells: Mild polypoid mucosal thickening of the right maxillary sinus. Posterior fossa: No cerebellar tonsillar herniation. Visualized orbits: Thinning of the bilateral lenses. No acute abnormality. IMPRESSION: No acute intracranial abnormality. Please note that all CT scans at this facility use dose modulation, iterative reconstruction, and/or weight-based dosing when appropriate to reduce radiation dose to as low as reasonably achievable. Dictated by Linsey Encinas MD @ 09/12/2023 2:30:40 PM (Electronically Signed)
--- OUTSIDE RECORDS SUMMARY | 2023-09-12 12:15 | XMS_ITS | Clinical Summary ---
Author Name Unknown Organization [facility] Address [address] [place] [address] Care Team Providers Care Water Meter Installer Name Role Phone Edwige Negrete MD Primary Care Provider [phone] Allergies Active Allergy Reactions Criticality Noted Date Comments No Known Drug Allergy 08/01/2004 Medications Medication Sig Dispensed Refills Start Date End Date Status AMBIEN 10 MG OR TABS 1 TABLET AT BEDTIME NEEDED 10 0 08/01/2004 Active CHLORPROMAZINE HCL PO Take 25-50 mg by mouth 4 times daily as needed 0 Active Ondansetron HCl (ZOFRAN PO) Take 4 mg by mouth every 6 hours as needed 0 Active Alendronate Sodium (FOSAMAX PO) Take 35 mg by mouth once a week Takes on Mondays.Did not take on Saturday,08/22/2015 . 0 Active atenolol-chlorth alidone (TENORETIC) 50-25 MG per tablet Take 1 tablet by mouth daily 0 Active GLIPIZIDE XL PO Take 5 mg by mouth daily (with breakfast) 0 Active Simvastatin (ZOCOR PO) Take 20 mg by mouth At Bedtime 0 Active acetaminophen-co deine (TYLENOL #3) 300-30 MG per tablet Take 1-2 tablets by mouth every 6 hours as needed for moderate pain 0 Active Acetaminophen (TYLENOL PO) Take 500 mg by mouth every 8 hours as needed for mild pain or fever 0 Active Ibuprofen-Diphen hydramine Cit (ADVIL PM PO) Take 1 tablet by mouth nightly as needed 0 Active oxymetazoline (AFRIN) 0.05 % nasal spray Ferron 2 sprays into both nostrils nightly as needed for congestion 0 Active Naproxen Sodium (ALEVE PO) Take 220 mg by mouth daily as needed for moderate pain 0 Active calcium carb 1250 mg, 500 mg douglas,/vitamin D 200 units (OSCAL WITH D) 500-200 MG-UNIT per tablet Take 1 tablet by mouth 4 times daily 0 Active Multiple Vitamins-Mineral s (CENTRUM SILVER) per tablet Take 1 tablet by mouth daily 0 Active clindamycin (CLEOCIN T) 1 % lotion Apply topically every 48 hours 0 Active Multiple Vitamins-Mineral s (PRESERVISION AREDS PO) Take 1 capsule by mouth daily 0 Active Cholecalciferol (VITAMIN D3 PO) Take 3,000 Units by mouth daily 0 Active vitamin E 400 UNIT capsule Take 400 Units by mouth daily 0 Active insulin glargine (LANTUS) 100 UNIT/ML PENIndications: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 (H) Inject 12 Units Subcutaneous every morning (before breakfast) 6 mL 0 08/26/2015 Active CYCLOBENZAPRINE HCL PO 0 Active oxyCODONE (ROXICODONE) 5 MG immediate release tablet Take 1-2 tablets (5-10 mg) by mouth every 6 hours as needed for moderate to severe pain (severe pain) 15 tablet 0 06/10/2016 3 Discontinued oxyCODONE (ROXICODONE) 5 MG tablet Take 1 tablet (5 mg) by mouth every 6 hours as needed for pain 12 tablet 0 08/16/2023 3 Active Problems Problem Noted Date Diagnosed Date Weakness 08/23/2015 Essential hypertension 08/01/2004 Overview: Problem list name updated by automated process. 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 Provider to review Encounters Date Type Department Care Team Description 08/21/2023 9:15 AM DOT ETCHER APPRENTICE - 08/21/2023 11:59 PM DOT ETCHER APPRENTICE Hospital Encounter [facility] [address] [place] [address] Carlin Singh MD Discharge Disposition: Home or Self Care 08/21/2023 7:45 AM DOT ETCHER APPRENTICE - 08/21/2023 9:14 AM DOT ETCHER APPRENTICE Hospital Encounter [facility] [address] [place] [address] Carlin Singh MD Discharge Disposition: Home or Self Care 08/21/2023 7:45 AM DOT ETCHER APPRENTICE - 08/21/2023 9:14 AM DOT ETCHER APPRENTICE Hospital Encounter [facility] [address] [place] [address] Carlin Singh MD Discharge Disposition: Home or Self Care 08/21/2023 7:43 AM DOT ETCHER APPRENTICE - 08/21/2023 7:44 AM DOT ETCHER APPRENTICE Hospital Encounter [facility] [address] [place] [address] Carlin Singh MD Neck pain on left side Discharge Disposition: Home or Self Care 08/21/2023 Travel 08/19/2023 Telephone [facility] [place] [id number] [place] [address] [address] [place] [id number] None Appointment ([place] ) 08/16/2023 12:26 PM DOT ETCHER APPRENTICE - 08/16/2023 6:22 PM DOT ETCHER APPRENTICE Emergency [facility] [address] [place] [address] Carlin Singh MD Neck pain on left side Discharge Disposition: Home or Self Care 08/16/2023 Travel from Last 3 Months Immunizations Name Administration Dates Next Due Zoster recombinant adjuvanted (SHINGRIX) 019,08/18/2018 10/17/2018 Social History Tobacco Use Types Packs/Day Years Used Date Smoking Tobacco: Never Alcohol Use Standard Drinks/Week Comments Yes 0 (1 standard drink = 0.6 oz pur e alcohol) Adolescent Education Answer Date Record ed Getting School Help Needed Not on file 06/09 Sex and Gender Information Value Date Recorded Sex Assigned at Not on file Gender Identity Not on file Sexual Orientation Not on file Last Filed Vital Signs Vital Sign Reading Time Taken Comments Blood Pressure 159/75 08/16/2023 3:40 PM DOT ETCHER APPRENTICE Pulse 72 08/16/2023 3:40 PM DOT ETCHER APPRENTICE Temperature 36.3 ??C (97.4 ??F) 08/16/2023 12:[address] Respiratory Rate 18 08/16/2023 3:40 PM DOT ETCHER APPRENTICE Oxygen Saturation 97% 08/16/2023 3:40 PM DOT ETCHER APPRENTICE Inhaled Oxygen Concentration - - Weight 95.3 kg (210 lb) 06/10/2016 12:37 AM CDT Height 185.4 cm (6' 1) 06/10/2016 12:37 AM CDT Body Mass Index 27.71 06/10/2016 12:37 AM CDT Plan of Treatment Health Maintenance Due Date Last Done Comments ADVANCE CARE PLANNING 1940 ANNUAL REVIEW OF HM ORDERS 1940 RSV VACCINE ( & 60+) (1 - 1-dose 60+ series) 2000 FALL RISK ASSESSMENT 01/29/2005 MEDICARE ANNUAL WELLNESS VISIT 01/29/2005 PHQ-2 (once per calendar year) 2023 DTAP/TDAP/TD IMMUNIZATION (3 - Td or Tdap) 01/01/2030 01/02/2020, 11/30/2009 Pneumococcal Vaccine: 65+ Years Completed 05/16/2017, 09/17/2009, 07/03/2009 ZOSTER IMMUNIZATION Completed 10/20/2018, 10/03/2018, 08/18/2018, Additional history exists INFLUENZA VACCINE Completed 05/21/2023, , 06/03/2019, Additional history exists COVID-19 Vaccine Completed 06/12/2023, , 05/30/2021, Additional history exists HPV IMMUNIZATION Aged Out No longer e ligible based on patient's age to complete this topic IPV IMMUNIZATION Aged Out No longer e ligible based on patient's age to complete this topic MENINGITIS IMMUNIZATION Aged Out No l onger eligible based on patient's age to complete this topic RSV MONOCLONAL ANTIBODY Aged Out No l onger eligible based on patient's age to complete this topic Procedures Procedure Name Priority Date/Time Associated Diagnosis Comments NM MPI WITH LEXISCAN Routine 08/21/2023 10:45 AM DOT ETCHER APPRENTICE Neck pain on left side ROUTINE UA WITH MICROSCOPIC REFLEX TO CULTURE STAT 08/16/2023 5:[address] AORTIC SURVEY W CONTRAST STAT 08/16/2023 4:37 PM DOT ETCHER APPRENTICE TROPONIN T, HIGH SENSITIVITY STAT 08/16/2023 3:59 PM DOT ETCHER APPRENTICE CBC WITH PLATELETS & DIFFERENTIAL STAT 08/16/2023 1:29 PM DOT ETCHER APPRENTICE EXTRA RED TOP TUBE STAT 08/16/2023 1: 29 PM DOT ETCHER APPRENTICE EXTRA BLUE TOP TUBE STAT 08/16/2023 1 :29 PM DOT ETCHER APPRENTICE CBC WITH PLATELETS AND DIFFERENTIAL STAT 08/16/2023 1:29 PM DOT ETCHER APPRENTICE EXTRA TUBE STAT 08/16/2023 1:29 PM DOT ETCHER APPRENTICE TROPONIN T, HIGH SENSITIVITY STAT 08/16/2023 1:29 PM DOT ETCHER APPRENTICE BASIC METABOLIC PANEL STAT 08/16/2023 1:29 PM DOT ETCHER APPRENTICE EKG 12-LEAD, TRACING ONLY STAT 08/16/2023 12:38 PM DOT ETCHER APPRENTICE from Last 3 Months Results * NM Lexiscan stress test (nuc card) (08/21/2023 10:45 AM DOT ETCHER APPRENTICE) Target HR 137 RADIANT Baseline Systolic BP 184 RADIANT Baseline Diastolic BP 80 RADIANT Last Stress Systolic BP 157 RADIANT Last Stress Diastolic BP 67 RADIANT Baseline HR 69 bpm RADIANT Max HR 73 RADIANT Max Predicted HR 53 % RADIANT Rate Pressure Product 11,461.0 RADIANT Left Ventricular EF 64 % RADIANT Anatomical Region Laterality Modality Chest Nuclear Medicine Narrative 08/21/2023 11:37 AM DOT ETCHER APPRENTICE ?The nuclear stress test is probably negative for inducible myocardial ischemia or infarction. ?Left ventricular function is normal. ?The left ventricular ejection fraction at stress is 64%. ?There is no prior study for comparison. Stress Findings A pharmacologic stress test was performed following a supine Lexiscan protocol using 0.4 mg of intravenous regadenoson administered over 10 seconds. The patient reported dyspnea during the stress test. ECG Baseline electrocardiogram demonstrates sinus rhythm. The stress electrocardiogram is negative for inducible ischemic EKG changes. Isotope Administration Nuclear imaging was accomplished using a one day protocol with 32.1 mCi of technetium sestamibi injected at the completion of Lexiscan infusion on 08/21/2023 and 11 mCi of technetium sestamibi at rest on 08/21/2023. Nuclear Study Quality The food quality tester images demonstrate subdiaphragmatic radiotracer activity interference. The food quality tester images demonstrate diaphragmatic attenuation. Final image quality is suboptimal. Perfusion Defect The nuclear stress test is probably negative for inducible myocardial ischemia or infarction. The left ventricular ejection fraction at stress is 64%. Left ventricular function is normal. Nuclear Prior Study There is no prior study for comparison. Perfusion Scoring Stress Summed Score: 6 Percent Normal: 8.82% Moderate count reduction in the following segments: basal inferoseptal and basal inferior. Mild count reduction in the following segments: mid inferoseptal and mid inferior. All other segments are normal. Perfusion Scoring Resting Summed Score: 6 Percent Normal: 8.82% Moderate count reduction in the following segments: basal inferoseptal and basal inferior. Mild count reduction in the following segments: mid inferoseptal and mid inferior. All other segments are normal. Perfusion Scores: SRS Score: 6 Percentage Abnormal: 8.82% Perfusion Scores: SSS Score: 6 Percentage Abnormal: 8.82% Perfusion Scores: SDS Score: 0 Percentage Abnormal: 0.00% Wall Motion Score Index: 1.00 The left ventricular wall motion is normal. Carlin Singh MD [facility] [place] * (ABNORMAL) UA with Microscopic reflex to Culture (08/16/2023 5:17 PM DOT ETCHER APPRENTICE) Color Urine Light Yellow Colorless, Straw, Light Yellow, Yellow 08/16/2023 5:33 PM DOT ETCHER APPRENTICE [facility] Appearance Urine Clear Clear 08/16/20 23 5:33 PM DOT ETCHER APPRENTICE [facility] Glucose Urine 50(A) Negative mg/dL 08/16/2023 5:33 PM DOT ETCHER APPRENTICE [facility] Bilirubin Urine Negative Negative 3 5:33 PM DOT ETCHER APPRENTICE [facility] Ketones Urine Negative Negative mg/dL 08/16/2023 5:33 PM DOT ETCHER APPRENTICE [facility] Specific [place] Urine 1.032 1.003 - 1.035 08/16/2023 5:33 PM DOT ETCHER APPRENTICE [facility] Blood Urine Negative Negative 08/16/2023 5:33 PM DOT ETCHER APPRENTICE [facility] pH Urine 5.0 5.0 - 7.0 08/16/2023 5:33 PM DOT ETCHER APPRENTICE [facility] Protein Albumin Urine Negative Negative mg/dL 08/16/2023 5:33 PM DOT ETCHER APPRENTICE [facility] Urobilinogen Urine Normal Normal, 2.0 mg/dL 08/16/2023 5:33 PM DOT ETCHER APPRENTICE [facility] Nitrite Urine Negative Negative 08/16/2023 5:33 PM DOT ETCHER APPRENTICE [facility] Leukocyte Esterase Urine Negative Negative 08/16/2023 5:33 PM DOT ETCHER APPRENTICE [facility] Mucus Urine Present(A) None Seen /LPF 08/16/2023 5:33 PM DOT ETCHER APPRENTICE [facility] RBC Urine 1 <=2 /HPF 08/16/2023 5:33 PM DOT ETCHER APPRENTICE [facility] WBC Urine <1 <=5 /HPF 08/16/2023 5:33 PM DOT ETCHER APPRENTICE LABORATORY Urine MID-STREAM URINE SPECIMEN / Unknown Non-blood Collection / Unknown 08/16/2023 5:17 PM DOT ETCHER APPRENTICE 08/16/2023 5:27 PM DOT ETCHER APPRENTICE Narrative [facility] - 08/16/2023 5:33 PM DOT ETCHER APPRENTICE Urine Culture not indicated Carlin Singh MD LAB - URINE ORD ERABLES LABORATORY [facility] [address] [facility] Lab (1st floor, no room number) [place] [address], [facility] [phone] * CT Aortic Survey w Contrast (08/16/2023 4:37 PM DOT ETCHER APPRENTICE) Anatomical Region Laterality Modality Abdomen/Pelvis, Chest, SUBRA D CT BODY, UMP CT CHEST, UMP CT ABDOMEN PELVIS, RAD CT Computed Tomography 08/16/2023 4:37 PM DOT ETCHER APPRENTICE Impressions 08/16/2023 5:20 PM DOT ETCHER APPRENTICE IMPRESSION: 1. ??No aortic dissection or other acute aortic abnormality. 2. ??No acute abnormality or specific cause of chest pain are identified. 3. ??Sigmoid colonic diverticulosis. No inflamed colonic diverticuli. 4. ??Sequela of remote granulomatous disease. Narrative 08/16/2023 5:20 PM DOT ETCHER APPRENTICE EXAM: CT AORTIC SURVEY W CONTRAST LOCATION: [facility] DATE: 08/16/2023 INDICATION: Neck, chest, back pain. COMPARISON: None. TECHNIQUE: CT angiogram chest abdomen pelvis during arterial phase of injection of IV contrast. 2D and 3D MIP reconstructions were performed by the medical office technologist. Dose reduction techniques were used. CONTRAST: 72mL Isovue 370 FINDINGS: CT ANGIOGRAM CHEST, ABDOMEN, AND PELVIS: No aortic dissection, intramural hematoma, or other acute aortic abnormality. No aortic aneurysm. Aortic arch vessels and their visualized branches are patent. Visceral arteries and their visualized branches are patent. Iliofemoral arteries are patent. Pulmonary arteries are normal in caliber. No central or lobar pulmonary embolism; segmental and subsegmental vessels are suboptimally opacified and not well evaluated. LUNGS AND PLEURA: Multiple benign scattered calcified granulomas, the largest of which is a 2.2 cm granuloma in the right lower lobe. No suspicious pulmonary masses. No consolidations, pleural effusions, or pneumothorax. Mild subpleural scarring at the lung bases. MEDIASTINUM/AXILLAE: Normal cardiac size. No significant pericardial effusion. Calcified right hilar lymph node. No enlarged thoracic lymph node. Small hiatal hernia. Tiny cystic left thyroid nodule, which does not require follow-up. CORONARY ARTERY CALCIFICATION: Moderate. HEPATOBILIARY: Status post cholecystectomy. No biliary ductal dilation. PANCREAS: Normal. SPLEEN: Scattered punctate calcified granulomas. ADRENAL GLANDS: Normal. KIDNEYS/BLADDER: Small right renal cortical scars. No urinary calculi or hydronephrosis. Normal bladder. BOWEL: No obstruction or inflammation. Scattered noninflamed descending and sigmoid colonic diverticuli. LYMPH NODES: No enlarged lymph nodes. PELVIC ORGANS: Status post prostatectomy. Multiple surgical clips are present along the pelvic sidewall. MUSCULOSKELETAL: Multilevel degenerative changes of the spine. No acute bony abnormality. Procedure Note Richard Montalvo MD - 08/16/2023 EXAM: CT AORTIC SURVEY W CONTRAST LOCATION: [facility] DATE: 08/16/2023 INDICATION: Neck, chest, back pain. COMPARISON: None. TECHNIQUE: CT angiogram chest abdomen pelvis during arterial phase ofinjection of IV contrast. 2D and 3D MIP reconstructions were performed bythe medical office technologist. Dose reduction techniques were used. CONTRAST: 72mL Isovue 370 FINDINGS: CT ANGIOGRAM CHEST, ABDOMEN, AND PELVIS: No aortic dissection, intramuralhematoma, or other acute aortic abnormality. No aortic aneurysm. Aorticarch vessels and their visualized branches are patent. Visceral arteriesand their visualized branches are patent. Iliofemoral arteries are patent. Pulmonary arteries are normal incaliber. No central or lobar pulmonary embolism; segmental andsubsegmental vessels are suboptimally opacified and not well evaluated. LUNGS AND PLEURA: Multiple benign scattered calcified granulomas, thelargest of which is a 2.2 cm granuloma in the right lower lobe. Nosuspicious pulmonary masses. No consolidations, pleural effusions, orpneumothorax. Mild subpleural scarring at the lung bases. MEDIASTINUM/AXILLAE: Normal cardiac size. No significant pericardialeffusion. Calcified right hilar lymph node. No enlarged thoracic lymphnode. Small hiatal hernia. Tiny cystic left thyroid nodule, which does notrequire follow-up. CORONARY ARTERY CALCIFICATION: Moderate. HEPATOBILIARY: Status post cholecystectomy. No biliary ductal dilation. PANCREAS: Normal. SPLEEN: Scattered punctate calcified granulomas. ADRENAL GLANDS: Normal. KIDNEYS/BLADDER: Small right renal cortical scars. No urinary calculi orhydronephrosis. Normal bladder. BOWEL: No obstruction or inflammation. Scattered noninflamed descendingand sigmoid colonic diverticuli. LYMPH NODES: No enlarged lymph nodes. PELVIC ORGANS: Status post prostatectomy. Multiple surgical clips arepresent along the pelvic sidewall. MUSCULOSKELETAL: Multilevel degenerative changes of the spine. No acutebony abnormality. IMPRESSION: 1. No aortic dissection or other acute aortic abnormality. 2. No acute abnormality or specific cause of chest pain are identified. 3. Sigmoid colonic diverticulosis. No inflamed colonic diverticuli. 4. Sequela of remote granulomatous disease. Carlin Singh MD [facility] [place]ABL ES * (ABNORMAL) Troponin T, High Sensitivity (08/16/2023 3:59 PM DOT ETCHER APPRENTICE) Only the most recent of2 resultswithin the time period is included. Troponin T, High Sensitivity 25(H) <=22 ng/L 08/16/2023 4:26 PM DOT ETCHER APPRENTICE [facility] Comment: Either a High Sensitivity Troponin T baseline (0 hours) value = 100 ng/L, or an increase in High Sensitivity Troponin T = 7 ng/L at 2 hours compared to 0 hours (2-0 hours), suggests myocardial injury, and urgent clinical attention is required. ?? If the 2-0 hours increase is <7 ng/L, a High Sensitivity Troponin T result above gender-specific reference ranges warrants further evaluation. Recommendations for further evaluation include correlation with clinical decision-making tool (e.g., HEART), a 3rd High Sensitivity Troponin T test 2 hours after the 2nd (a 20% change from baseline would represent concern), admission for observation, close PCC/cardiology follow-up, or urgent outpatient provocative testing. Blood STRUCTURE OF RIGHT HAND / Unknown Venipuncture / Unknown 08/16/2023 3:59 PM DOT ETCHER APPRENTICE 08/16/2023 4:04 PM DOT ETCHER APPRENTICE Carlin Singh MD LAB - BLOOD ORD ERABLES [facility] [address] Lab (1st floor, no room number) [place] [address], [facility] [phone] * Extra Red Top Tube (08/16/2023 1:29 PM DOT ETCHER APPRENTICE) Hold Specimen [facility] 08/16/2023 2:47 PM DOT ETCHER APPRENTICE LABORATORY Blood STRUCTURE OF LEFT UPPER LIMB / Unknown Venipuncture / Unknown 08/16/2023 1:29 PM DOT ETCHER APPRENTICE 08/16/2023 1:37 PM DOT ETCHER APPRENTICE Carlin Singh MD LAB - BLOOD ORD ERABLES [facility] Lab [address] Lab (1st floor, no room number) [place] [address], [facility] [phone] * Extra Blue Top Tube (08/16/2023 1:29 PM DOT ETCHER APPRENTICE) Hold Specimen [facility] 08/16/2023 2:47 PM DOT ETCHER APPRENTICE [facility] Blood STRUCTURE OF LEFT UPPER LIMB / Unknown Venipuncture / Unknown 08/16/2023 1:29 PM DOT ETCHER APPRENTICE 08/16/2023 1:37 PM DOT ETCHER APPRENTICE Carlin Singh MD LAB - BLOOD ORD ERABLES [facility] [address] Lab (1st floor, no room number) [place] [address], [facility] [phone] * (ABNORMAL) CBC with platelets and differential (08/16/2023 1:29 PM DOT ETCHER APPRENTICE) WBC Count 14.3(H) 4.0 - 11.0 10e3/uL 08/16/2023 1:40 PM DOT ETCHER APPRENTICE [facility] RBC Count 3.79(L) 4.40 - 5.90 10e6/uL 08/16/2023 1:40 PM DOT ETCHER APPRENTICE [facility] Hemoglobin 12.2(L) 13.3 - 17.7 g/dL 08/16/2023 1:40 PM DOT ETCHER APPRENTICE [facility] Hematocrit 36.7(L) 40.0 - 53.0 % 08/16/2023 1:40 PM DOT ETCHER APPRENTICE [facility] MCV 97 78 - 100 fL 08/16/2023 1:40 PM DOT ETCHER APPRENTICE [facility] MCH 32.2 26.5 - 33.0 pg 08/16/2023 1:40 PM DOT ETCHER APPRENTICE [facility] MCHC 33.2 31.5 - 36.5 g/dL 08/16/2023 1:40 PM DOT ETCHER APPRENTICE [facility] RDW 12.8 10.0 - 15.0 % 08/16/2023 1:40 PM DOT ETCHER APPRENTICE [facility] Platelet Count 249 150 - 450 10e3/uL 08/16/2023 1:40 PM DOT ETCHER APPRENTICE [facility] % Neutrophils 83 % 08/16/2023 1:40 PM DOT ETCHER APPRENTICE [facility] % Lymphocytes 9 % 08/16/2023 1:40 PM DOT ETCHER APPRENTICE [facility] % Monocytes 6 % 08/16/2023 1:40 PM DOT ETCHER APPRENTICE [facility] % Eosinophils 1 % 08/16/2023 1:40 PM DOT ETCHER APPRENTICE [facility] % Basophils 0 % 08/16/2023 1:40 PM DOT ETCHER APPRENTICE [facility] % Immature Granulocytes 1 % 08/16/2023 1:40 PM DOT ETCHER APPRENTICE [facility] NRBCs per 100 WBC 0 <1 /100 023 1:40 PM DOT ETCHER APPRENTICE [facility] Absolute Neutrophils 11.9(H) 1.6 - 8.3 10e3/uL 08/16/2023 1:40 PM DOT ETCHER APPRENTICE [facility] Absolute Lymphocytes 1.3 0.8 - 5.3 10e3/uL 08/16/2023 1:40 PM DOT ETCHER APPRENTICE [facility] Absolute Monocytes 0.9 0.0 - 1.3 10e3/uL 08/16/2023 1:40 PM DOT ETCHER APPRENTICE [facility] Absolute Eosinophils 0.1 0.0 - 0.7 10e3/uL 08/16/2023 1:40 PM DOT ETCHER APPRENTICE [facility] Absolute Basophils 0.1 0.0 - 0.2 10e3/uL 08/16/2023 1:40 PM DOT ETCHER APPRENTICE [facility] Absolute Immature Granulocytes 0.1 <=0.4 10e3/uL 08/16/2023 1:40 PM DOT ETCHER APPRENTICE [facility] Absolute NRBCs 0.0 10e3/uL 08/16/2023 1:40 PM DOT ETCHER APPRENTICE [facility] Blood BLOOD SPECIMEN / Unknown Venipuncture / Unknown 08/16/2023 1:29 PM DOT ETCHER APPRENTICE 08/16/2023 1:37 PM DOT ETCHER APPRENTICE Alhaji Hadley MD LAB - BLOOD ORDERABL ES LABORATORY [facility] Lab [address] [facility] Lab (1st floor, no room number) [place] [address], [facility] [phone] * (ABNORMAL) Basic metabolic panel (08/16/2023 1:29 PM DOT ETCHER APPRENTICE) [facility] Sodium 139 135 - 145 mmol/L 08/16/2023 2:08 PM DOT ETCHER APPRENTICE [facility] Comment:Reference intervals for this test were updated on 05/28/2023 to more accurately reflect our healthy population. There may be differences in the flagging of prior results with similar values performed with this method. Interpretation of those prior results can be made in the context of the updated reference intervals. Potassium 3.6 3.4 - 5.3 mmol/L 08/16/2023 2:08 PM DOT ETCHER APPRENTICE LABORATORY Chloride 98 98 - 107 mmol/L 08/16/2023 2:08 PM DOT ETCHER APPRENTICE LABORATORY Carbon Dioxide (CO2) 28 22 - 29 mmol/L 08/16/2023 2:08 PM DOT ETCHER APPRENTICE LABORATORY Anion Gap 13 7 - 15 mmol/L 08/16/2023 2:08 PM DOT ETCHER APPRENTICE LABORATORY Urea Nitrogen 19.4 8.0 - 23.0 mg/dL 08/16/2023 2:08 PM DOT ETCHER APPRENTICE LABORATORY Creatinine 1.20(H) 0.67 - 1.17 mg/dL 08/16/2023 2:08 PM DOT ETCHER APPRENTICE LABORATORY GFR Estimate 60(L) >60 mL/min/1. 73m2 08/16/2023 2:08 PM DOT ETCHER APPRENTICE LABORATORY Calcium 9.6 8.8 - 10.2 mg/dL 08/16/2023 2:08 PM DOT ETCHER APPRENTICE LABORATORY Glucose 209(H) 70 - 99 mg/dL 08/16/2023 2:08 PM DOT ETCHER APPRENTICE LABORATORY Blood BLOOD SPECIMEN / Unknown Venipuncture / Unknown 08/16/2023 1:29 PM DOT ETCHER APPRENTICE 08/16/2023 1:37 PM DOT ETCHER APPRENTICE Alhaji Hadley MD LAB - BLOOD ORDERABL ES LABORATORY [facility] Acute Care Lab [address] Lab (1st floor, no room number) [place] [address], [facility] [phone] * EKG 12-lead, tracing only (08/16/2023 12:38 PM DOT ETCHER APPRENTICE) Systolic Blood Pressure mmHg RADIOLOGY RESULTS Diastolic Blood Pressure mmHg RADIOLOGY RESULTS Ventricular Rate 68 BPM RAD IOLOGY RESULTS Atrial Rate 68 BPM RADIOLOG Y RESULTS WY Interval 194 ms RADIOLOG Y RESULTS QRS Duration 88 ms RADIOLO GY RESULTS QT 362 ms RADIOLOGY RESULTS QTc 384 ms RADIOLOGY RESULTS P [place] 82 degrees RADIOLOGY RESULTS R AXIS -26 degrees RADIOLOGY RESULTS T [place] 22 degrees RADIOLOGY RESULTS Interpretation ECG Sinus rhythm Nonspecific ST abnormality Abnormal ECG When compared with ECG of 23-AUG-2015 11:49, Vent. rate has decreased BY ??33 BPM QRS axis Shifted left Non-specific change in ST segment in Anterior leads QT has shortened Confirmed by - EMERGENCY ROOM, PHYSICIAN ([id number]), publishing editor FOX ZARAGOZA ([id number]) on 08/16/2023 2:31:19 PM RADIOLOGY RESULTS 08/16/2023 12:3 8 PM DOT ETCHER APPRENTICE 08/16/2023 2:31 PM DOT ETCHER APPRENTICE Dar Zheng MD ECG ORDERABLES RADIOLOGY RESULTS from Last 3 Months Advance Directives For more information, please contact: [phone] Latest Code Status on File Code Status Date Activated Date Inactivated Comments Full Code 08/26/2015 8:28 AM 07/21/2019 11:52 AM Code Status History Code Status Date Activated Date Inactivated Comments DNR/DNI 08/23/2015 6:11 PM 08/26/2015 8:28 AM Care Teams Water Meter Installer Relationship Specialty [place] [address] [place] [address] PCP - General Family Practice 07/21/19
--- OUTSIDE RECORDS SUMMARY | 2023-09-12 12:15 | XMS_ITS | Encounter Summary ---
Author Name Unknown Organization [facility] Address [address] [place] [address]. [place] [address] Care Team Providers Care Lockstitch Sleeve Setter Name Role Phone Edwige Negrete MD Primary Care Provider [phone] Encounter Details Date Type Department Care Team (Latest Contact Info) Description 08/21/2023 Travel Social History Tobacco Use Types Packs/Day Years [...] on file Sexual Orientation Not on file documented as of this encounter Plan of Treatment Not on file documented as of this encounter Visit Diagnoses Not on filedocumented in this encounter Care Teams Lockstitch Sleeve Setter Relationship Specialty [place] [address] [place] [address] PCP - General Family Practice 07/21/19 documented as of this encounter
--- OUTSIDE RECORDS SUMMARY | 2023-09-12 12:15 | XMS_ITS | Referral Summary ---
Author Name Unknown Organization [facility] Address [address] [place] [address] Care Team Providers Care Oracle H[employer] Consultant Name Role Phone Edwige Negrete MD Primary Care Provider Encounters Date Type Department Care Team Description 08/21/2023 Travel 08/21/2023 7:45 AM VASCULAR ULTRASOUND TECHNOLOGIST - 08/21/2023 9:14 AM VASCULAR ULTRASOUND TECHNOLOGIST Hospital Encounter [facility] [address] [place] [address] Carlin Singh MD Discharge Disposition: Home or Self Care 08/21/2023 9:15 AM VASCULAR ULTRASOUND TECHNOLOGIST - 08/21/2023 11:59 PM VASCULAR ULTRASOUND TECHNOLOGIST Hospital Encounter [facility] [address] [place] [address] Carlin Singh MD Discharge Disposition: Home or Self Care 08/21/2023 7:45 AM VASCULAR ULTRASOUND TECHNOLOGIST - 08/21/2023 9:14 AM VASCULAR ULTRASOUND TECHNOLOGIST Hospital Encounter [facility] [address] [place] [address] Carlin Singh MD Discharge Disposition: Home or Self Care 08/21/2023 7:43 AM VASCULAR ULTRASOUND TECHNOLOGIST - 08/21/2023 7:44 AM VASCULAR ULTRASOUND TECHNOLOGIST Hospital Encounter [facility] [address] [place] [address] Carlin Singh MD Neck pain on left side Discharge Disposition: Home or Self Care 08/19/2023 Telephone [facility] [address] [facility] [address] [place] [phone] None Appointment (Alia ) 08/16/2023 Travel 08/16/2023 12:26 PM VASCULAR ULTRASOUND TECHNOLOGIST - 08/16/2023 6:22 PM VASCULAR ULTRASOUND TECHNOLOGIST Emergency [facility] Emergency Dept [address] [place] [phone] Carlin Singh MD Neck pain on left side Discharge Disposition: Home or Self Care from Last 3 Months Allergies Active Allergy Reactions Criticality Noted Date [...] Active oxymetazoline (AFRIN) 0.05 % nasal spray [place] 2 sprays into both nostrils nightly as needed for congestion 0 Active Naproxen Sodium (ALEVE PO) Take 220 mg by mouth daily as needed for moderate pain 0 Active calcium carb 1250 mg, 500 mg igiugig,/vitamin D 200 units (OSCAL WITH D) 500-200 [...] updated by automated process. Provider to review Immunizations Name Administration Dates Next Due Zoster [...] Comments Blood Pressure 159/75 08/16/2023 3:40 PM VASCULAR ULTRASOUND TECHNOLOGIST Pulse 72 08/16/2023 3:40 PM VASCULAR ULTRASOUND TECHNOLOGIST Temperature 36.3 ??C (97.4 ??F) 08/16/2023 12:[address] Respiratory Rate 18 08/16/2023 3:40 PM VASCULAR ULTRASOUND TECHNOLOGIST Oxygen Saturation 97% 08/16/2023 3:40 PM VASCULAR ULTRASOUND TECHNOLOGIST Inhaled Oxygen Concentration - - Weight 95.3 kg (210 lb) 06/10/2016 12:37 AM CDT Height 185.4 cm (6' 1) 06/10/2016 12:37 AM CDT Body Mass Index 27.71 06/10/2016 12:37 AM CDT Plan of Treatment Not on file Procedures Procedure Name Priority Date/Time Associated Diagnosis Comments NM MPI WITH LEXISCAN Routine 08/21/2023 10:45 AM VASCULAR ULTRASOUND TECHNOLOGIST Neck pain on left side ROUTINE UA WITH MICROSCOPIC REFLEX TO CULTURE STAT 08/16/2023 5:[address]OUND [address]OLOG[address] AORTIC SURVEY W CONTRAST STAT 08/16/2023 4:37 PM VASCULAR ULTRASOUND TECHNOLOGIST TROPONIN T, HIGH SENSITIVITY STAT 08/16/2023 3:59 PM VASCULAR ULTRASOUND TECHNOLOGIST CBC WITH PLATELETS & DIFFERENTIAL STAT 08/16/2023 1:29 PM VASCULAR ULTRASOUND TECHNOLOGIST EXTRA RED TOP TUBE STAT 08/16/2023 1: 29 PM VASCULAR ULTRASOUND TECHNOLOGIST EXTRA BLUE TOP TUBE STAT 08/16/2023 1 :29 PM VASCULAR ULTRASOUND TECHNOLOGIST CBC WITH PLATELETS AND DIFFERENTIAL STAT 08/16/2023 1:29 PM VASCULAR ULTRASOUND TECHNOLOGIST EXTRA TUBE STAT 08/16/2023 1:29 PM VASCULAR ULTRASOUND TECHNOLOGIST TROPONIN T, HIGH SENSITIVITY STAT 08/16/2023 1:29 PM VASCULAR ULTRASOUND TECHNOLOGIST BASIC METABOLIC PANEL STAT 08/16/2023 1:29 PM VASCULAR ULTRASOUND TECHNOLOGIST EKG 12-LEAD, TRACING ONLY STAT 08/16/2023 12:38 PM VASCULAR ULTRASOUND TECHNOLOGIST from Last 3 Months Results * NM Lexiscan stress test (nuc card) (08/21/2023 10:45 AM VASCULAR ULTRASOUND TECHNOLOGIST) Target HR 137 RADIANT Baseline Systolic BP 184 RADIANT Baseline Diastolic BP 80 RADIANT Last Stress Systolic BP 157 RADIANT Last Stress Diastolic BP 67 RADIANT Baseline HR 69 bpm RADIANT Max HR 73 RADIANT Max Predicted HR 53 % RADIANT Rate Pressure Product 11,461.0 RADIANT Left Ventricular EF 64 % RADIANT Anatomical Region Laterality Modality Chest Nuclear Medicine Narrative 08/21/2023 11:37 AM VASCULAR ULTRASOUND TECHNOLOGIST ?The nuclear stress test is probably negative [...] rest on 08/21/2023. Nuclear Study Quality The senior quality technician images demonstrate subdiaphragmatic radiotracer activity interference. The senior quality technician images demonstrate diaphragmatic attenuation. Final image quality [...] wall motion is normal. Carlin Singh MD IMG NM ORDERABL ES * (ABNORMAL) UA with Microscopic reflex to Culture (08/16/2023 5:17 PM VASCULAR ULTRASOUND TECHNOLOGIST) Color Urine Light Yellow Colorless, Straw, Light Yellow, Yellow 08/16/2023 5:33 PM VASCULAR ULTRASOUND TECHNOLOGIST LABORATORY Appearance Urine Clear Clear 08/16/20 5:33 PM VASCULAR ULTRASOUND TECHNOLOGIST LABORATORY Glucose Urine 50(A) Negative mg/dL 08/16/2023 5:33 PM VASCULAR ULTRASOUND TECHNOLOGIST LABORATORY Bilirubin Urine Negative Negative 5:33 PM VASCULAR ULTRASOUND TECHNOLOGIST LABORATORY Ketones Urine Negative Negative mg/dL 08/16/2023 5:33 PM VASCULAR ULTRASOUND TECHNOLOGIST LABORATORY Specific [place] Urine 1.032 1.003 - 1.035 08/16/2023 5:33 PM VASCULAR ULTRASOUND TECHNOLOGIST [facility] Blood Urine Negative Negative 08/16/2023 5:33 PM VASCULAR ULTRASOUND TECHNOLOGIST LABORATORY pH Urine 5.0 5.0 - 7.0 08/16/2023 5:33 PM VASCULAR ULTRASOUND TECHNOLOGIST [facility] Protein Albumin Urine Negative Negative mg/dL 08/16/2023 5:33 PM VASCULAR ULTRASOUND TECHNOLOGIST [facility] Urobilinogen Urine Normal Normal, 2.0 mg/dL 08/16/2023 5:33 PM VASCULAR ULTRASOUND TECHNOLOGIST [facility] Nitrite Urine Negative Negative 08/16/2023 5:33 PM VASCULAR ULTRASOUND TECHNOLOGIST [facility] Leukocyte Esterase Urine Negative Negative 08/16/2023 5:33 PM VASCULAR ULTRASOUND TECHNOLOGIST LABORATORY Mucus Urine Present(A) None Seen /LPF 08/16/2023 5:33 PM VASCULAR ULTRASOUND TECHNOLOGIST [facility] RBC Urine 1 <=2 /HPF 08/16/2023 5:33 PM VASCULAR ULTRASOUND TECHNOLOGIST [facility] WBC Urine <1 <=5 /HPF 08/16/2023 5:33 PM VASCULAR ULTRASOUND TECHNOLOGIST [facility]AT[facility] Urine MID-STREAM URINE SPECIMEN / Unknown Non-blood Collection / Unknown 08/16/2023 5:17 PM VASCULAR ULTRASOUND TECHNOLOGIST 08/16/2023 5:27 PM VASCULAR ULTRASOUND TECHNOLOGIST Narrative LABORATORY - 08/16/2023 5:33 PM VASCULAR ULTRASOUND TECHNOLOGIST Urine Culture not indicated Carlin Singh MD LAB - URINE ORD ERABLES [facility] Care Lab [address] Lab (1st floor, no room number) [place] [address], [facility] [phone] * CT Aortic Survey w Contrast (08/16/2023 4:37 PM VASCULAR ULTRASOUND TECHNOLOGIST) Anatomical Region Laterality Modality Abdomen/Pelvis, Chest, SUBRA D CT BODY, UMP CT CHEST, UMP CT ABDOMEN PELVIS, RAD CT Computed Tomography 08/16/2023 4:37 PM VASCULAR ULTRASOUND TECHNOLOGIST Impressions 08/16/2023 5:20 PM VASCULAR ULTRASOUND TECHNOLOGIST IMPRESSION: 1. ??No aortic dissection or other acute aortic abnormality. 2. ??No acute abnormality or specific cause of chest pain are identified. 3. ??Sigmoid colonic diverticulosis. No inflamed colonic diverticuli. 4. ??Sequela of remote granulomatous disease. Narrative 08/16/2023 5:20 PM VASCULAR ULTRASOUND TECHNOLOGIST EXAM: CT AORTIC SURVEY W CONTRAST LOCATION: [facility] DATE: 08/16/2023 INDICATION: Neck, chest, back pain. COMPARISON: None. TECHNIQUE: CT angiogram chest abdomen pelvis during arterial phase of injection of IV contrast. 2D and 3D MIP reconstructions were performed by the special procedure technologist. Dose reduction techniques were used. CONTRAST: [...] EXAM: CT AORTIC SURVEY W CONTRAST LOCATION: [facility] DATE: 08/16/2023 INDICATION: Neck, chest, back pain. COMPARISON: None. TECHNIQUE: CT angiogram chest abdomen pelvis during arterial phase ofinjection of IV contrast. 2D and 3D MIP reconstructions were performed bythe special procedure technologist. Dose reduction techniques were used. CONTRAST: [...] of remote granulomatous disease. Carlin Singh MD [facility] [place] ORDERABL ES * (ABNORMAL) Troponin T, High Sensitivity (08/16/2023 3:59 PM VASCULAR ULTRASOUND TECHNOLOGIST) Only the most recent of2 resultswithin the time period is included. [facility] Troponin T, High Sensitivity 25(H) <=22 ng/L 08/16/2023 4:26 PM VASCULAR ULTRASOUND TECHNOLOGIST LABORATORY Comment: Either a High Sensitivity Troponin [...] Unknown Venipuncture / Unknown 08/16/2023 3:59 PM VASCULAR ULTRASOUND TECHNOLOGIST 08/16/2023 4:04 PM VASCULAR ULTRASOUND TECHNOLOGIST Carlin Singh MD LAB - BLOOD ORD ERABLES [facility] [address] [facility] Lab (1st floor, no room number) [place] [address], [facility] [phone] * Extra Red Top Tube (08/16/2023 1:29 PM VASCULAR ULTRASOUND TECHNOLOGIST) Hold Specimen [facility] 08/16/2023 2:47 PM VASCULAR ULTRASOUND TECHNOLOGIST [facility] LABORATORY Blood STRUCTURE OF LEFT UPPER LIMB / Unknown Venipuncture / Unknown 08/16/2023 1:29 PM VASCULAR ULTRASOUND TECHNOLOGIST 08/16/2023 1:37 PM VASCULAR ULTRASOUND TECHNOLOGIST Carlin Singh MD LAB - BLOOD ORD ERABLES Performing Organization Address City/[facility]/ZIP Co de Phone Number [facility] [address] Lab (1st floor, no room number) [place] [address], [facility] [phone] * Extra Blue Top Tube (08/16/2023 1:29 PM VASCULAR ULTRASOUND TECHNOLOGIST) Hold Specimen [facility] 08/16/2023 2:47 PM VASCULAR ULTRASOUND TECHNOLOGIST [facility] LABORAT[facility] Blood STRUCTURE OF LEFT UPPER LIMB / Unknown Venipuncture / Unknown 08/16/2023 1:29 PM VASCULAR ULTRASOUND TECHNOLOGIST 08/16/2023 1:37 PM VASCULAR ULTRASOUND TECHNOLOGIST Carlin Singh MD LAB - BLOOD ORD ERATIARA Performing Organization Address City/[facility]/ZIP Co de Phone Number [facility] [address] Lab (1st floor, no room number) [place] [address], [facility] [phone] * (ABNORMAL) CBC with platelets and differential (08/16/2023 1:29 PM VASCULAR ULTRASOUND TECHNOLOGIST) WBC Count 14.3(H) 4.0 - 11.0 10e3/uL 08/16/2023 1:40 PM VASCULAR ULTRASOUND TECHNOLOGIST [facility] LAB[facility]ATORY RBC Count 3.79(L) 4.40 - 5.90 10e6/uL 08/16/2023 1:40 PM VASCULAR ULTRASOUND TECHNOLOGIST [facility] Hemoglobin 12.2(L) 13.3 - 17.7 g/dL 08/16/2023 1:40 PM VASCULAR ULTRASOUND TECHNOLOGIST [facility] Hematocrit 36.7(L) 40.0 - 53.0 % 08/16/2023 1:40 PM VASCULAR ULTRASOUND TECHNOLOGIST [facility]AT[facility] MCV 97 78 - 100 fL 08/16/2023 1:40 PM VASCULAR ULTRASOUND TECHNOLOGIST [facility] MCH 32.2 26.5 - 33.0 pg 08/16/2023 1:40 PM VASCULAR ULTRASOUND TECHNOLOGIST [facility]AT[facility] MCHC 33.2 31.5 - 36.5 g/dL 08/16/2023 1:40 PM VASCULAR ULTRASOUND TECHNOLOGIST [facility] RDW 12.8 10.0 - 15.0 % 08/16/2023 1:40 PM VASCULAR ULTRASOUND TECHNOLOGIST [facility] Platelet Count 249 150 - 450 10e3/uL 08/16/2023 1:40 PM VASCULAR ULTRASOUND TECHNOLOGIST [facility] % Neutrophils 83 % 08/16/2023 1:40 PM VASCULAR ULTRASOUND TECHNOLOGIST [facility] % Lymphocytes 9 % 08/16/2023 1:40 PM VASCULAR ULTRASOUND TECHNOLOGIST [facility] % Monocytes 6 % 08/16/2023 1:40 PM VASCULAR ULTRASOUND TECHNOLOGIST [facility] % Eosinophils 1 % 08/16/2023 1:40 PM VASCULAR ULTRASOUND TECHNOLOGIST [facility] % Basophils 0 % 08/16/2023 1:40 PM VASCULAR ULTRASOUND TECHNOLOGIST [facility] % Immature Granulocytes 1 % 08/16/2023 1:40 PM VASCULAR ULTRASOUND TECHNOLOGIST [facility] LAB[facility]AT[facility] NRBCs per 100 WBC 0 <1 /100 023 1:40 PM VASCULAR ULTRASOUND TECHNOLOGIST [facility] Absolute Neutrophils 11.9(H) 1.6 - 8.3 10e3/uL 08/16/2023 1:40 PM VASCULAR ULTRASOUND TECHNOLOGIST [facility] Absolute Lymphocytes 1.3 0.8 - 5.3 10e3/uL 08/16/2023 1:40 PM VASCULAR ULTRASOUND TECHNOLOGIST [facility]AT[facility] Absolute Monocytes 0.9 0.0 - 1.3 10e3/uL 08/16/2023 1:40 PM VASCULAR ULTRASOUND TECHNOLOGIST [facility]AT[facility] Absolute Eosinophils 0.1 0.0 - 0.7 10e3/uL 08/16/2023 1:40 PM VASCULAR ULTRASOUND TECHNOLOGIST [facility]AT[facility] Absolute Basophils 0.1 0.0 - 0.2 10e3/uL 08/16/2023 1:40 PM VASCULAR ULTRASOUND TECHNOLOGIST [facility]AT[facility] Absolute Immature Granulocytes 0.1 <=0.4 10e3/uL 08/16/2023 1:40 PM VASCULAR ULTRASOUND TECHNOLOGIST [facility]AT[facility] Absolute NRBCs 0.0 10e3/uL 08/16/2023 1:40 PM VASCULAR ULTRASOUND TECHNOLOGIST [facility] Blood BLOOD SPECIMEN / Unknown Venipuncture / Unknown 08/16/2023 1:29 PM VASCULAR ULTRASOUND TECHNOLOGIST 08/16/2023 1:37 PM VASCULAR ULTRASOUND TECHNOLOGIST Alhaji Hadley MD LAB - BLOOD ORDERABL ES LABORATORY [facility] Acute Care Lab [address] Lab (1st floor, no room number) [place] [address], [facility] [phone] * (ABNORMAL) Basic metabolic panel (08/16/2023 1:29 PM VASCULAR ULTRASOUND TECHNOLOGIST) [facility] Signature Sodium 139 135 - 145 mmol/L 08/16/2023 2:08 PM [facility] Comment:Reference intervals for this test were updated on 05/28/2023 to more accurately reflect our healthy population. There may be differences in the flagging of prior results with similar values performed with this method. Interpretation of those prior results can be made in the context of the updated reference intervals. Potassium 3.6 3.4 - 5.3 mmol/L 08/16/2023 2:08 PM [facility] Chloride 98 98 - 107 mmol/L 08/16/2023 2:08 PM [facility] Carbon Dioxide (CO2) 28 22 - 29 mmol/L 08/16/2023 2:08 PM [facility] Anion Gap 13 7 - 15 mmol/L 08/16/2023 2:08 PM [facility] Urea Nitrogen 19.4 8.0 - 23.0 mg/dL 08/16/2023 2:08 PM [facility] Creatinine 1.20(H) 0.67 - 1.17 mg/dL 08/16/2023 2:08 PM [facility] GFR Estimate 60(L) >60 mL/min/1. 73m2 08/16/2023 2:08 PM [facility] Calcium 9.6 8.8 - 10.2 mg/dL 08/16/2023 2:08 PM [facility] Glucose 209(H) 70 - 99 mg/dL 08/16/2023 2:08 PM [facility] Blood BLOOD SPECIMEN / Unknown Venipuncture / Unknown 08/16/2023 1:29 PM VASCULAR ULTRASOUND TECHNOLOGIST 08/16/2023 1:37 PM VASCULAR ULTRASOUND TECHNOLOGIST Alhaji Hadley MD LAB - BLOOD ORDERABL ES LABORATORY [facility] Acute Care Lab [address] Lab (1st floor, no room number) [place] [address], [facility] [phone] * EKG 12-lead, tracing only (08/16/2023 12:38 PM VASCULAR ULTRASOUND TECHNOLOGIST) Systolic Blood Pressure mmHg RADIOLOGY RESULTS Diastolic Blood Pressure mmHg RADIOLOGY RESULTS Ventricular Rate 68 BPM RAD IOLOGY RESULTS Atrial Rate 68 BPM RADIOLOG Y RESULTS FL Interval 194 ms RADIOLOG Y RESULTS QRS Duration 88 ms RADIOLO GY RESULTS QT 362 ms RADIOLOGY RESULTS QTc 384 ms RADIOLOGY RESULTS P [place] 82 degrees RADIOLOGY RESULTS R AXIS -26 degrees RADIOLOGY RESULTS T [place] 22 degrees RADIOLOGY RESULTS Interpretation ECG Sinus rhythm Nonspecific ST abnormality Abnormal ECG When compared with ECG of 23-AUG-2015 11:49, Vent. rate has decreased BY ??33 BPM QRS axis Shifted left Non-specific change in ST segment in Anterior leads QT has shortened Confirmed by - EMERGENCY ROOM, PHYSICIAN ([id number]), medical editor FOX ZARAGOZA ([id number]) on 08/16/2023 2:31:19 PM RADIOLOGY RESULTS 08/16/2023 12:3 8 PM VASCULAR ULTRASOUND TECHNOLOGIST 08/16/2023 2:31 PM VASCULAR ULTRASOUND TECHNOLOGIST Dar Zheng MD ECG ORDERABLES RADIOLOGY RESULTS from Last 3 Months Advance Directives For more information, please contact: [phone] Latest Code Status on File Code Status Date Activated Date Inactivated Comments Full Code 08/26/2015 8:28 AM 07/21/2019 11:52 AM Code Status History Code Status Date Activated Date Inactivated Comments DNR/DNI 08/23/2015 6:11 PM 08/26/2015 8:28 AM Care Teams Oracle Hrms Consultant Relationship Specialty [place] [address] [place] [address] PCP - General Family Practice 07/21/19
--- OUTSIDE RECORDS SUMMARY | 2023-09-12 12:16 | XMS_ITS ---
Author Name Unknown Organization [facility] Address [address] [place] [address] Care Team Providers Care Housing Officer Name Role Phone Unavailable Unavailable Unavailable Surgery Details Not on file Complications Check Surgery Details section. Procedure Estimated Blood Loss Check Surgery Details section. Procedure Findings Check Surgery Details section. Procedure Specimens Taken Check Surgery Details section.
--- OUTSIDE RECORDS SUMMARY | 2023-09-12 12:16 | XMS_ITS | Encounter Summary ---
Author Name Unknown Organization [facility] Address [address] [place] [address] Care Team Providers Care Ham Trimmer Name Role Phone Edwige Negrete MD Primary Care Provider Reason for Referral * Diagnostic Imaging NM (Priority: 1-2 Weeks) - Denied Specialty Diagnoses / Procedures Referred By Contac t Referred To Contact Radiology. Diagnoses Neck pain on left side Procedures NM Lexiscan stress test (nuc card) Carlin Singh MD [address] [place] [address] Nuclear Medicine [address] [place] [address] Referral ID Status Reason Start Date Expiration Date Visits Re quested Visits Authorized [id number] Denied 08/16/2023 08/15/2024 5 0 STANT BROKER Reason for Visit * Diagnostic Imaging NM (Priority: 1-2 Weeks) - Denied Specialty Diagnoses / Procedures Referred By Contac t Referred To Contact Radiology. Diagnoses Neck pain on left side Procedures NM Lexiscan stress test (nuc card) Carlin Singh MD [address] [place] [address] Nuclear Medicine [address] [place] [address] Referral ID Status Reason Start Date Expiration Date Visits Re quested Visits Authorized [id number] Denied 08/16/2023 08/15/2024 5 0 Encounter Details Date Type Department Care Team (Late st Contact Info) Description 08/21/2023 7:43 AM ASSISTANT BROKER - 08/21/2023 7:44 AM ASSISTANT BROKER Hospital Encounter [facility] Imaging [address] [place] [phone] Carlin Singh MD [address] [place] [phone] Neck pain on left side Discharge Disposition: Home or Self Care Social History Tobacco Use Types Packs/Day Years [...] on file documented as of this encounter Medications at Time of Discharge Medication Sig Dispensed Refills Start Date End Date Acetaminophen (TYLENOL PO) Take 500 mg by mouth every 8 hours as needed for mild pain or fever 0 acetaminophen-codeine (TYLENOL #3) 300-30 MG per tablet Take 1-2 tablets by mouth every 6 hours as needed for moderate pain 0 Alendronate Sodium (FOSAMAX PO) Take 35 mg by mouth once a week Takes on Mondays.Did not take on Saturday,08/22/2015. 0 AMBIEN 10 MG OR TABS 1 TABLET AT BEDTIME NEEDED 10 0 08/01/2004 atenolol-chlorthalidone (TENORETIC) 50-25 MG per tablet Take 1 tablet by mouth daily 0 calcium carb 1250 mg, 500 mg [place],/vitamin D 200 units (OSCAL WITH D) 500-200 MG-UNIT per tablet Take 1 tablet by mouth 4 times daily 0 CHLORPROMAZINE HCL PO Take 25-50 mg by mouth 4 times daily as needed 0 Cholecalciferol (VITAMIN D3 PO) Take 3,000 Units by mouth daily 0 clindamycin (CLEOCIN T) 1 % lotion Apply topically every 48 hours 0 CYCLOBENZAPRINE HCL PO 0 GLIPIZIDE XL PO Take 5 mg by mouth daily (with breakfast) 0 Ibuprofen-Diphenhydrami ne Cit (ADVIL PM PO) Take 1 tablet by mouth nightly as needed 0 insulin glargine (LANTUS) 100 UNIT/ML PENIndications:Type 2 diabetes mellitus treated with insulin (H) Inject 12 Units Subcutaneous every morning (before breakfast) 6 mL 0 08/26/2015 Multiple Vitamins-Minerals (CENTRUM SILVER) per tablet Take 1 tablet by mouth daily 0 Multiple Vitamins-Minerals (PRESERVISION AREDS PO) Take 1 capsule by mouth daily 0 Naproxen Sodium (ALEVE PO) Take 220 mg by mouth daily as needed for moderate pain 0 Ondansetron HCl (ZOFRAN PO) Take 4 mg by mouth every 6 hours as needed 0 oxymetazoline (AFRIN) 0.05 % nasal spray [place] 2 sprays into both nostrils nightly as needed for congestion 0 Simvastatin (ZOCOR PO) Take 20 mg by mouth At Bedtime 0 vitamin E 400 UNIT capsule Take 400 Units by mouth daily 0 documented as of this encounter Plan of Treatment Not on file documented as of this encounter Procedures Procedure Name Priority Date/Time Associated Diagnosis Comments NM MPI WITH LEXISCAN Routine 08/21/2023 10:45 AM ASSISTANT BROKER Neck pain on left side documented in this encounter Results * NM Lexiscan stress test (nuc card) (08/21/2023 10:45 AM ASSISTANT BROKER) Target HR 137 RADIANT Baseline Systolic BP 184 RADIANT Baseline Diastolic BP 80 RADIANT Last Stress Systolic BP 157 RADIANT Last Stress Diastolic BP 67 RADIANT Baseline HR 69 bpm RADIANT Max HR 73 RADIANT Max Predicted HR 53 % RADIANT Rate Pressure Product 11,461.0 RADIANT Left Ventricular EF 64 % RADIANT Anatomical Region Laterality Modality Chest Nuclear Medicine Narrative 08/21/2023 11:37 AM ASSISTANT BROKER ?The nuclear stress test is probably negative [...] rest on 08/21/2023. Nuclear Study Quality The quality inspector images demonstrate subdiaphragmatic radiotracer activity interference. The quality inspector images demonstrate diaphragmatic attenuation. Final image quality [...] Carlin Singh MD IMG NM ORDERABL ES documented in this encounter Visit Diagnoses Diagnosis Neck pain on left side Cervicalgia documented in this encounter Administered Medications Inactive Administered Medications - up to 3 most recent administrations Medication Order MAR Action Action Date Dose Rate Site technetium sestamibi 2 UD per study (Tc99m MiBi) radioisotope injection 3-42 millicurie 3-42 millicurie, Intravenous, EVERY 2 HOURS, First dose on Sat08/21/23 at 0830, For 2 doses, Radioisotope, supplied by and administered by Nuclear Medicine. *HW* $Given 08/21/2023 9:44 AM ASSISTANT BROKER 32.1 millicuries $Given 08/21/2023 8:05 AM ASSISTANT BROKER 11 millicuries documented in this encounter Care Teams Ham Trimmer Relationship Specialty [place] [address] [facility] [place] [address] PCP - General Family Practice 07/21/19 documented as of this encounter
--- OUTSIDE RECORDS SUMMARY | 2023-09-12 12:16 | XMS_ITS | Encounter Summary ---
Author Name Unknown Organization [facility] Address [address] [place] [address] Care Team Providers Care Moisture Conditioner Operator Name Role Phone Edwige Negrete MD Primary Care Provider [phone] Reason for Visit * Diagnostic Imaging NM (Priority: 1-2 Weeks) - Denied Specialty Diagnoses / Procedures Referred By Contac t Referred To Contact Radiology. Diagnoses Neck pain on left side Procedures NM Lexiscan stress test (nuc card) Carlin Singh MD [address] [place] [address] Nuclear Medicine [address] [place] [address] Referral ID Status Reason Start Date Expiration Date Visits Re quested Visits Authorized [id number] Denied 08/16/2023 08/15/2024 5 0 Encounter Details Date Type Department Care Team (Late st Contact Info) Description 08/21/2023 7:45 AM BOILER/CHILLER TECHNICIAN - 08/21/2023 9:14 AM BOILER/CHILLER TECHNICIAN Hospital Encounter [facility] Imaging [address] [place] [address] Carlin Singh MD [address] [place] [address] Discharge Disposition: Home or Self Care Social [...] 0 calcium carb 1250 mg, 500 mg [facility],/vitamin D 200 units (OSCAL WITH D) 500-200 [...] 0 oxymetazoline (AFRIN) 0.05 % nasal spray [place] 2 sprays into both nostrils nightly as [...] MPI WITH LEXISCAN Routine 08/21/2023 10:45 AM BOILER/CHILLER TECHNICIAN Neck pain on left side documented in this encounter Results * NM Lexiscan stress test (nuc card) (08/21/2023 10:45 AM BOILER/CHILLER TECHNICIAN) Target HR 137 RADIANT Baseline Systolic BP 184 RADIANT Baseline Diastolic BP 80 RADIANT Last Stress Systolic BP 157 RADIANT Last Stress Diastolic BP 67 RADIANT Baseline HR 69 bpm RADIANT Max HR 73 RADIANT Max Predicted HR 53 % RADIANT Rate Pressure Product 11,461.0 RADIANT Left Ventricular EF 64 % RADIANT Anatomical Region Laterality Modality Chest Nuclear Medicine Narrative 08/21/2023 11:37 AM BOILER/CHILLER TECHNICIAN ?The nuclear stress test is probably negative [...] on 08/21/2023. Nuclear Study Quality The quality assurance inspector images demonstrate subdiaphragmatic radiotracer activity interference. The quality assurance inspector images demonstrate diaphragmatic attenuation. Final image [...] ES documented in this encounter Visit Diagnoses Not on filedocumented in this encounter Care Teams Moisture Conditioner Operator Relationship Specialty [place] [address] [place] [address] PCP - General Family Practice 07/21/19 documented as of this encounter
--- OUTSIDE RECORDS SUMMARY | 2023-09-12 12:16 | XMS_ITS | Encounter Summary ---
Author Name Unknown Organization [facility] Address [address] [place] [address] Care Team Providers Care Plastic Sheeting Cutter Name Role Phone Edwige Negrete MD Primary Care Provider [phone] Reason for Visit * Diagnostic Imaging NM (Priority: 1-2 Weeks) - Denied Specialty Diagnoses / Procedures Referred By Contac t Referred To Contact Radiology. Diagnoses Neck pain on left side Procedures NM Lexiscan stress test (nuc card) Carlin Singh MD [address] [place] [address] Nuclear Medicine [address] [place] [address] Referral ID Status Reason Start Date Expiration Date Visits Re quested Visits Authorized [id number] Denied 08/16/2023 08/15/2024 5 0 Encounter Details Date Type Department Care Team (Late st Contact Info) Description 08/21/2023 7:45 AM METAL FLOORING INSTALLER - 08/21/2023 9:14 AM METAL FLOORING INSTALLER Hospital Encounter [facility] Imaging [address] [place] [address] Carlin Singh MD [address] [place] [address] Discharge Disposition: Home or Self Care Social [...] 0 calcium carb 1250 mg, 500 mg [place],/vitamin D 200 units (OSCAL WITH D) 500-200 [...] 0 oxymetazoline (AFRIN) 0.05 % nasal spray [place] 2 sprays into both nostrils nightly as [...] MPI WITH LEXISCAN Routine 08/21/2023 10:45 AM METAL FLOORING INSTALLER Neck pain on left side documented in this encounter Visit Diagnoses Not on filedocumented in this encounter Care Teams Plastic Sheeting Cutter Relationship Specialty [place] [address] [place] [address] PCP - General Family Practice 07/21/19 documented as of this encounter
--- OUTSIDE RECORDS SUMMARY | 2023-09-12 12:16 | XMS_ITS | Encounter Summary ---
Author Name Unknown Organization [facility] Address [address] [place] [address]. [address] Care Team Providers Care Cloth Cutting Inspector Name Role Phone Edwige Negrete MD Primary Care Provider [phone] Encounter Details Date Type Department Care Team (Latest Contact Info) Description 08/16/2023 Travel Social History Tobacco Use Types Packs/Day [...] on filedocumented in this encounter Care Teams Cloth Cutting Inspector Relationship Specialty Start [place] [address] [place] [address] PCP - General Family Practice 07/21/19 documented as of this encounter
--- OUTSIDE RECORDS SUMMARY | 2023-09-12 12:16 | XMS_ITS | Encounter Summary ---
Author Name Unknown Organization [facility] Address [address] [place] [address] Care Team Providers Care Riveter Helper Name Role Phone Elsewhere, Pcp Primary Care Provider Unavailabl e Reason for Visit * Reason Onset Date Comments Pre-visit Intake 06/07/2023 Encounter Details Date Type Department Care Team (Latest Contact Info) Description 06/07/2023 2:15 PM CDT Clinical Communication Virtual Review in [place], [place] [address] [place], [place] [phone] Pre-visit Intake Social History Tobacco Use Types Packs/Day Years Used Date Smoking Tobacco: Never Passive Smoke Exposure: Never Smokeless Tobacco: Never Tobacco Cessation:Counseling Given: Not Answered Social Connection and Isolat ion Panel [NHANES] Answer Date Recorded In a typical week, how many times do you talk on the phone with family, friends, or neighbors? More than three times a week 01/11/2020 How often do you get togethe r with friends or relatives? Three times a week 01/11/2020 How often do you attend chur ch or hoahaoism services? More than 4 times per year 01/11/2020 Do you belong to any clubs o r organizations such as congregational groups, unions, fraternal or athletic groups, or school groups? Yes 01/11/2020 How often do you attend meet ings of the clubs or organizations you belong to? More than 4 times per year 01/11/2020 Are you , , di vorced, , never , or living with a partner? 01/11/2020 AUDIT-C Answer Date Recorded Q1: How often do you have a drink containing alc ohol? 2-3 times a week 01/11/2020 Q2: How many drinks containi ng alcohol do you have on a typical day when you are drinking? 1 or 2 01/11/2020 Q3: How often do you have si x or more drinks on one occasion? Never 01/11/2020 Overall Financial Resource Strain (CARDIA) Answe r Date Recorded How hard is it for you to pa y for the very basics like food, housing, medical care, and heating? Not hard at all 01/11/2020 [facility] - Occupational Stress Questionnaire Answer Date Recorded Do you feel stress - tense, restless, nervous, or anxious, or unable to sleep at night because your mind is troubled all the time - these days? Only a little 01/11/2020 Exercise Vital Sign Answer Date Recorde d On average, how many days pe r week do you engage in moderate to strenuous exercise (like a brisk walk)? 1 day 01/11/2020 On average, how many minutes do you engage in exercise at this level? 20 min 01/11/2020 Hunger Vital Sign Answer Date Recorded Within the past 12 months, y ou worried that your food would run out before you got the money to buy more. Never true 01/11/20 20 Within the past 12 months, t he food you bought just didn't last and you didn't have money to get more. Never true 01/11/2020 PRAPARE - Transportation Answer Date Re corded In the past 12 months, has l ack of transportation kept you from medical appointments or from getting medications? No 12/31 In the past 12 months, has l ack of transportation kept you from meetings, work, or from getting things needed for daily living? No 01/11/2020 Nutrition Answer Date Recorded Nutrition: EVOO Fat Source Unknown 01/18 Nutrition: Servings of Fruits/Vegetables per Day Not on file 01/18/2023 Dental Answer Date Recorded Dental: Regular Dentist Unknown 01/19/20 Education Answer Date Recorded What is the highest level of school you have completed or the highest degree you have received? Bachelor's degree (e.g., BA, AB, BS) 01/11/2020 Sex and Gender Information Value Date Recorded Sex Assigned at Not on file Gender Identity Not on file Sexual Orientation Not on file documented as of this encounter Plan of Treatment Upcoming Encounters Date Type Department Care Team (Late st Contact Info) Description 10/03/2023 10:15 AM AIR AND WATER TESTER Procedure visit Department of Urology in [place], [place] [address] [place] [phone] Chanel Concepcion M.D., M.B.A. [address] [place] [phone] 10/03/2023 11:30 AM AIR AND WATER TESTER Office Visit Department of Urology in [place], [place] [address] [place] [phone] Ganesh Miller M.D. [address] [place] [phone] documented as of this encounter Visit Diagnoses Not on filedocumented in this encounter Additional Health Concerns Assessment Noted Time PHQ-9 Depression Total Score: 1 07/16/20 13 2:30 PM AIR AND WATER TESTER documented as of this encounter Care Teams Riveter Helper Relationship Specialty Start Date End Date Elsewhere, Pcp PCP - General Internal Medicine 04/22/23 documented as of this encounter
--- OUTSIDE RECORDS SUMMARY | 2023-09-12 12:16 | XMS_ITS | Encounter Summary ---
Author Name Unknown Organization [facility] Address [address] [place] [address] Care Team Providers Care Managing Consultant Name Role Phone Elsewhere, Pcp Primary Care Provider Unavailabl e Reason for Referral * Outpatient (Routine) - Authorized Specialty Diagnoses / Procedures Referred By Contac t Referred To Contact Diagnoses Symptom Urinary Nocturia Procedures URO Uroflow Chanel oCncepcion M.D., M.B.A. 200 [place] [address] [facility] Referral ID Status Reason Start Date Expiration Date V isits Requested Visits Authorized [id number] Authorized 06/10/2023 06/09/2024 1 1 * Outpatient (Routine) - Authorized Specialty Diagnoses / Procedures Referred By Contac t Referred To Contact Urology Chanel Concepcion M.D., M.B.A. 200 [place] [address] [facility] Referral ID Status Reason Start Date Expiration Date V isits Requested Visits Authorized [id number] Authorized 06/10/2023 06/09/2026 1 1 Reason for Visit * Outpatient (Routine) - Closed Specialty Diagnoses / Procedures Referred By Contac t Referred To Contact Urology Rachel Guillory M.D. [address] [place] [phone] Rachel Guillory M.D. 200 [place] [address] Referral ID Status Reason Start Date Expiration Date Visits Re quested Visits Authorized [id number] Closed 04/25/2023 04/24/2026 1 1 Encounter Details Date Type Department Care Team (Late st Contact Info) Description 06/10/2023 3:30 PM CDT Virtual Visit Department of Urology in [place], [place] [address] [place] [phone] Chanel Concepcion M.D., M.B.A. [address] [place] [phone] Symptom Urinary (Primary Dx); Urgency Urinary; Frequency Urinary; Nocturia Social History Tobacco Use Types Packs/Day Years Used Date Smoking Tobacco: Never Passive Smoke Exposure: Never Smokeless Tobacco: Never Social Connection and Isolat ion Panel [NHANES] Answer Date Recorded In a typical week, how many times do you talk on the phone with family, friends, or neighbors? More than three times a week 01/11/2020 How often do you get togethe r with friends or relatives? Three times a week 01/11/2020 How often do you attend [facility] or anabaptism services? More than 4 times per year 01/11/2020 Do you belong to any clubs o r organizations such as jain groups, unions, fraternal or athletic groups, or [...] and heating? Not hard at all 01/11/2020 [facility] - Occupational Stress Questionnaire Answer Date Recorded [...] Date Recorded Dental: Regular Dentist Unknown 01/19/20 23 Education Answer Date Recorded What is the highest level of school you have completed or the highest degree you have received? Bachelor's degree (e.g., BA, AB, BS) 01/11/2020 Sex and Gender Information Value Date Recorded Sex Assigned at Not on file Gender Identity Not on file Sexual Orientation Not on file documented as of this encounter Progress Notes * Chanel Concepcion M.D., M.B.A. - 06/10/2023 3:30 PM CDT SUBJECTIVE CHIEF COMPLAINT/REASON FOR VISIT LUTS FARROWING WORKER calendar HISTORY OF PRESENT ILLNESS Mr. Alaniz is a very pleasant 83 year old gentleman presenting for evaluation of urinary urgencyand frequency. 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 The patient initially presented in April of 2023 with concerns of worsening urgency, frequency, and nocturia. He was started on Myrbetriq and strongly encouraged to have a cystoscopy. Patient has been doing very well on the Myrbetriq. His urinary urgency and frequency have significantly improved. He is now only waking up twice per night to urinate. He denies incomplete emptying, hesitancy, intermittency, postvoid dribbling, or weak stream. Denies UTIs and gross hematuria. He wasrecommended to get his blood pressure checked with his primary care physician, but has not yet doneso. The following portions of the patient's history were reviewed and updated as appropriate: allergies, current medications, family history, medical history, social history, surgical history, and problem list. OBJECTIVE There were no vitals filed for this visit. PHYSICAL EXAM Unable to conduct as this was a phone visit ASSESSMENT / PLAN #1 Primary Malignant Neoplasm Of Prostate (HCC) #2 Nocturia #3 Urgency Mr. Alaniz is a very pleasant 83 yo male who presents to clinic via phone visit to follow-up on irritative voiding symptoms. Of note, he was previously recommended to undergo a cystoscopy prior totrialing medications but opted for medication management. He has been doing well on the Myrbetriq with a significant improvement in his symptoms. While he was previously recommended to see primary care physician for blood pressure tracts, he has not done so yet. Discussed the importance of blood pressure tracts as Myrbetriq can cause BP issues. Patient is aware and will have his pressures checkedwith PCP. Overall, he will continue on the Myrbetriq and follow-up with us in person in 3 months with a uroflow and PVR to ensure things are going well and he is not in retention. Patient is in agreement with this plan and all questions were answered. Plan: - Continue Myrbetriq - Follow-up with PCP for blood pressure checks - Follow-up in 3 months with uroflow and PVR Signed by: Chanel Concepcion M.D., M.B.A. 06/07/2023 4:26 PM CDT documented in this encounter Plan of Treatment Upcoming Encounters Date Type Department Care Team (Late st Contact Info) Description 10/03/2023 10:15 AM BUSINESS ANALYSIS PROFESSIONAL Procedure visit Department of Urology in [place], [place] [address] [place] [phone] Chanel Concepcion M.D., M.B.A. [address] [place] [phone] 10/03/2023 11:30 AM BUSINESS ANALYSIS PROFESSIONAL Office Visit Department of Urology in [place], [place] [address] [place] [phone] Ganesh Miller M.D. [address] [place] [phone] Scheduled Orders Name Type Priority Associated Diagnoses Orde r Schedule URO Uroflow Procedure Routine Symptom Urinary Nocturia Expected: 09/10/2023 (Approximate), Expires: 09/10/2024 Scheduled Referrals Name Type Priority Associated Diagnoses Orde r Schedule Urology office visit (clinic) Outpatient Referral Routine Expected: 09/10/2023 (Approximate), Expires: 09/10/2024 documented as of this encounter Visit Diagnoses Diagnosis Symptom Urinary- Primary Urgency Urinary Frequency Urinary Nocturia documented in this encounter Additional Health Concerns Assessment Noted Time PHQ-9 Depression Total Score: 1 07/16/20 13 2:30 PM BUSINESS ANALYSIS PROFESSIONAL documented as of this encounter Care Teams Managing Consultant Relationship Specialty Start Date End Date Elsewhere, Pcp PCP - General Internal Medicine 04/22/23 documented as of this encounter
--- OUTSIDE RECORDS SUMMARY | 2023-09-12 12:16 | XMS_ITS | Encounter Summary ---
Author Name Unknown Organization [facility] Address [address] [place] [id number] Care Team Providers Care Senior Systems Administrator Name Role Phone Edwige Negrete MD Primary Care Provider [phone] Reason for Visit * Diagnostic Imaging NM (Priority: 1-2 Weeks) - Denied Specialty Diagnoses / Procedures Referred By Contac t Referred To Contact Radiology. Diagnoses Neck pain on left side Procedures NM Lexiscan stress test (nuc card) Carlin Singh MD [address] [place] [address] Nuclear Medicine [address] [place] [address] Referral ID Status Reason Start Date Expiration Date Visits Re quested Visits Authorized [id number] Denied 08/16/2023 08/15/2024 5 0 Encounter Details Date Type Department Care Team (Late st Contact Info) Description 08/21/2023 9:15 AM PERCOLATOR OPERATOR - 08/21/2023 11:59 PM PERCOLATOR OPERATOR Hospital Encounter [facility] [address] [place] [address] Carlin Singh MD [address] [place] [address] Discharge Disposition: Home or Self Care Social [...] 0 calcium carb 1250 mg, 500 mg [place],/vitamin D 200 units (OSCAL WITH D) 500-200 [...] 0 oxymetazoline (AFRIN) 0.05 % nasal spray Strang 2 sprays into both nostrils nightly as needed for congestion 0 Simvastatin (ZOCOR PO) Take 20 mg by mouth At Bedtime 0 vitamin E 400 UNIT capsule Take 400 Units by mouth daily 0 documented as of this encounter Progress Notes * Ezio Lema RN - 08/21/2023 9:33 AM CST Pt tolerated Lexiscan procedure well, some SOB no C/P OLATOR OPERATOR documented in this encounter Plan of Treatment Not on file documented as of this encounter Procedures Procedure Name Priority Date/Time Associated Diagnosis Comments NM MPI WITH LEXISCAN Routine 08/21/2023 10:45 AM PERCOLATOR OPERATOR Neck pain on left side documented in this encounter Results * NM Lexiscan stress test (nuc card) (08/21/2023 10:45 AM PERCOLATOR OPERATOR) Target HR 137 RADIANT Baseline Systolic BP 184 RADIANT Baseline Diastolic BP 80 RADIANT Last Stress Systolic BP 157 RADIANT Last Stress Diastolic BP 67 RADIANT Baseline HR 69 bpm RADIANT Max HR 73 RADIANT Max Predicted HR 53 % RADIANT Rate Pressure Product 11,461.0 RADIANT Left Ventricular EF 64 % RADIANT Anatomical Region Laterality Modality Chest Nuclear Medicine Narrative 08/21/2023 11:37 AM PERCOLATOR OPERATOR ?The nuclear stress test is probably negative [...] on 08/21/2023. Nuclear Study Quality The quality control engineer images demonstrate subdiaphragmatic radiotracer activity interference. The quality control engineer images demonstrate diaphragmatic attenuation. Final image quality [...] Diagnoses Not on filedocumented in this encounter Administered Medications Inactive Administered Medications - up to 3 most recent administrations Medication Order MAR Action Action Date Dose Rate Site regadenoson (LEXISCAN) 0.4 MG/5ML injection Starting on Sat08/21/23 at 0924, For 1 dose, Ezio Lema: bijut override $Given 08/21/2023 9:30 AM PERCOLATOR OPERATOR 0.4 mg documented in this encounter Care Teams Senior Systems Administrator Relationship Specialty Start [place] [id number] [place] [address] PCP - General Family Practice 07/21/19 documented as of this encounter
--- OUTSIDE RECORDS SUMMARY | 2023-09-12 12:16 | XMS_ITS | Encounter Summary ---
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 Confirmed by - EMERGENCY ROOM, PHYSICIAN ([id number]), copy editor FOX ZARAGOZA ([id number]) on 08/16/2023 2:31:19 PM RADIOLOGY RESULTS 08/16/2023 12:3 8 PM SIGNAL MAINTAINER 08/16/2023 2:31 PM SIGNAL MAINTAINER Dar Zheng MD ECG ORDERABLES Performing Organization Address [facility] Co de Phone Number RADIOLOGY RESULTS documented in this encounter Visit Diagnoses Diagnosis Neck pain on left side Cervicalgia Neck pain on left side Cervicalgia documented in this encounter Administered Medications Inactive Administered Medications - up to 3 most recent administrations Medication Order MAR Action Action Date Dose Rate Site CT scan flush Intravenous, 100 mL, ONCE, On Sat08/16/23 at 1625, For 1 dose, This entry is for use by Radiology to intermittently used as a flush in patients receiving a CT scan. $Given 08/16/2023 4:20 PM SIGNAL MAINTAINER 60 mLs iopamidol (ISOVUE-370) solution 500 mL 500 mL, Intravenous, ONCE, On Sat08/16/23 at 1625, For 1 dose $Given 08/16/2023 4:20 PM SIGNAL MAINTAINER 72 mLs oxyCODONE (ROXICODONE) tablet 5 mg 5 mg, Oral, ONCE, On Sat08/16/23 at 1415, For 1 dose $Given 08/16/2023 3:26 PM SIGNAL MAINTAINER 5 mg documented in this encounter Active and Recently Administered Medications Times are shown in SIGNAL MAINTAINER. Scheduled Medication Order 08/14/2023 08/15/2023 08/16/2023 CT scan flush (COMPLETED) Intravenous, 100 mL, ONCE, On Sat08/16/23 at 1625, For 1 dose, This entry is for use by Radiology to intermittently used as a flush in patients receiving a CT scan. 1620 ($Given - Provi sudeep: Newton Dennis) iopamidol (ISOVUE-370) solution 500 mL (COMPLETED) 500 mL, Intravenous, ONCE, On Sat08/16/23 at 1625, For 1 dose 1620 ($Given - Provi sudeep: Newton Dennis) oxyCODONE (ROXICODONE) tablet 5 mg (COMPLETED) 5 mg, Oral, ONCE, On Sat08/16/23 at 1415, For 1 dose 1526 ($Given - Provi sudeep: Patrice Galvan RN) documented in this encounter Care Teams Advertising Project Manager Relationship Specialty Start [place] [address] [place] [address] PCP - General Family Practice 07/21/19 documented as of this encounter
--- OUTSIDE RECORDS SUMMARY | 2023-09-12 12:16 | XMS_ITS | Referral Summary ---
Author Name Unknown Organization [facility] Address [address] [place] [address] Care Team Providers Care Electrotyper Apprentice Name Role Phone Elsewhere, Pcp Primary Care Provider Unavailabl e Source Comments Patient records contain information from all sites at [facility]. For routine questions regarding patient records, call [phone] during business hours, M-F 8:00 AM - 5:00 PM Central Time. Record requests for emergency care only can be directed to [phone] at any time.[facility] Allergies Active Allergy Reactions Criticality Noted Date Comments Cat Dander Other (see comments) 02/11/2014 sneezing Medications Medication Sig Dispensed Refills Start Date End Date Status acetaminophen (ACETAMINOPHEN EXTRA STRENGTH) 500 mg tablet Take 1 tablet by mouth as needed. pain 0 02/11/2014 Active ibuprofen-diphenh ydrAMINE cit (ADVIL PM) 200-38 mg tablet Take 1 tablet by mouth as needed. sleep 0 02/11/2014 Active oxymetazoline HCl (AFRIN, OXYMETAZOLINE, NASAL) Administer 1 spray into affected nostril(s) at bedtime as needed. Per nostril for congestion as needed 0 02/11/2014 Active naproxen sodium (ALEVE) 220 mg tablet Take 1 tablet by mouth as needed. pain 0 02/11/2014 Active atenolol-chlortha lidone (TENORETIC) 50-25 mg per tablet Take 1 tablet by mouth daily. 0 02/11/2014 Active clindamycin (CLEOCIN T) 1 % external solution Apply topically as needed. 0 02/11/2014 Active glipiZIDE (GLUCOTROL XL) 5 mg 24 hr tablet Take 1 tablet by mouth daily. 0 02/11/2014 Active INSULIN ASPART, NIACINAMIDE, SC Inject under the skin. Uses sliding scale. Usually uses around 58 units as needed. 0 09/19/2015 Active MAGNESIUM ORAL Take 1 tablet by mouth as needed (muscle cramps). 0 03/18/2017 Active acetaminophen/dip henhydramine (DIPHENHYDRAMINE- ACETAMINOPHEN ORAL) Take 1 tablet by mouth at bedtime as needed. 25 mg/500 mg sleep 0 02/11/2014 Active vit A/vit C/vit E/zinc/copper (PRESERVISION AREDS ORAL) Take 1 tablet by mouth daily. 0 06/15/2013 Active cholecalciferol (VITAMIN D3) 2,000 Unit tablet Take 1 tablet by mouth daily. 0 02/11/2014 Active zolpidem (AMBIEN) 10 mg tablet Take 1 tablet by mouth as needed. Sleep 0 02/11/2014 Active insulin glargine 100 unit/mL (3 mL) injection Inject 12 Units under the skin daily. 0 08/26/2015 Active losartan (COZAAR) 100 mg tablet Take 100 mg by mouth daily. 0 Active simvastatin (ZOCOR) 20 mg tablet Take 20 mg by mouth at bedtime. 0 Active eszopiclone (LUNESTA) 2 mg tablet Take 2 mg by mouth at bedtime. 0 08/06/2022 Active lidocaine (LIDODERM) 5 % Place 1 patch on the skin daily. Apply to foot 0 Active peg 400-propylene glycol (SYSTANE) 0.4-0.3 % ophthalmic solution Administer 1 drop into both eyes 2 (two) times a day. 0 Active melatonin 5 mg tablet Take 5 mg by mouth. 0 Active blood sugar diagnostic strips (Accu-Chek Negin Plus test strp) USE TO TEST BLOOD SUGAR TWICE DAILY DX: E11.9 0 12/23/2020 Active trospium (SANCTURA XR) 60 mg 24 hr capsule Take 1 capsule (60 mg total) by mouth every morning before breakfast. 90 capsule 3 04/25/2023 04/24/2024 Active mirabegron (Myrbetriq) 50 mg 24 hr tablet Take 1 tablet (50 mg total) by mouth daily. 90 tablet 3 05/07/2023 Active amLODIPine (NORVASC) 2.5 mg tablet Take 2.5 mg by mouth daily. 5MG 0 06/02/2023 Active clindamycin (CLEOCIN T) 1 % lotion Apply 1 Application topically as needed. 0 Active metFORMIN XR (GLUCOPHAGE-XR) 500 mg 24 hr tablet Take 500 mg by mouth daily with breakfast. 0 06/06/2023 Active BD Ultra-Fine Short Pen Needle 31 gauge x 5/16 needle daily. 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 on 04/03/2018 Immunizations Name Administration Dates Next Due HZV (ZOSTAVAX) 09/02/2010 PPSV23 07/03/2009 Tdap 11/30/2009 Social History Tobacco Use Types Packs/Day Years [...] 01/11/2020 How often do you attend chur or latter day services? More than 4 times per year 01/11/2020 Do you belong to any clubs o r organizations such as methodist groups, unions, fraternal or athletic groups, or [...] and heating? Not hard at all 01/11/2020 [facility] [place] of Occupat ional Health - Occupational Stress [...] Sign Reading Time Taken Comments Blood Pressure 172/84 02/11/2014 7:50 AM CDT Pulse 77 02/11/2014 7:50 AM CDT Temperature - - Respiratory Rate - - Oxygen Saturation - - Inhaled Oxygen Concentration - - Weight 96.2 kg (212 lb) 01/11/2020 10:07 AM CDT verbal Height 185.9 cm (6' 1.2) 01/11/2020 10:07 AM CD T verbal Body Mass Index 27.82 01/11/2020 10:07 AM CDT Plan of Treatment Upcoming Encounters Date Type Department Care Team (Late st Contact Info) Description 10/03/2023 10:15 AM DIAL PRINTER Procedure visit Department of Urology in [place], [place] [address] [place] [address] Chanel Concepcion M.D., M.B.A. [address] [place] [phone] 10/03/2023 11:30 AM DIAL PRINTER Office Visit Department of Urology in [place], [place] [address] [place] [address] Ganesh Milelr M.D. [address] [place] [address] Medical Devices Implanted Type Area Instructor Looping Device Identifier Shelf Expiration Date Model / Serial / Lot K-Wire-Ss 4 Smooth .062 - [id number] Implanted:Qty: 2 on 09/05/2011 Hardware e.g. pins/screws /rods Peña Description:Device Manufactu rer - Paxton Yuan.. Device Status Text - [id number]-871. Mesh Or Patch Mesh or Patch Abdomen Ocular Lens Ocular Lens Bilateral: Eye Description:Cataract surgery Advance Directives For more information, please contact: [phone] Documents on File Type Date Recorded Patient Mass Spectrometry Specialist Expl anation Advance Directives 10/13/2009 12:00 AM Leg acy document. See document viewer. Advance Directives 10/13/2009 12:00 AM Leg acy document. See document viewer. Advance Directives 05/06/2007 12:00 AM Lega cy document. See document viewer. Care Teams Electrotyper Apprentice Relationship Specialty Start Date End Date Elsewhere, Pcp PCP - General Internal Medicine 04/22/23
--- OUTSIDE RECORDS SUMMARY | 2023-09-12 12:16 | XMS_ITS | Clinical Summary ---
Author Name Unknown Organization [facility] Address [address] [place] [address] Care Team Providers Care Development Manager Name Role Phone Elsewhere, Pcp Primary Care Provider Unavailabl e Source Comments Patient records contain information from all sites at [facility]. For routine questions regarding patient records, call [phone] during business hours, M-F 8:00 AM - 5:00 PM Central Time. Record requests for emergency care only can be directed to [phone] at any time.[facility] Allergies Active Allergy Reactions Criticality Noted Date [...] How often do you attend chur or synagogue services? More than 4 times per year 01/11/2020 Do you belong to any clubs o r organizations such as caodaism groups, unions, fraternal or athletic groups, or [...] and heating? Not hard at all 01/11/2020 [facility] [place] of Occupat ional Health - Occupational Stress [...] st Contact Info) Description 10/03/2023 10:15 AM SALES FLOOR MANAGER Procedure visit Department of Urology in [place], [place] [address] [place] [address] Chanel Concepcion M.D., M.B.A. [address] [place] [phone] 10/03/2023 11:30 AM SALES FLOOR MANAGER Office Visit Department of Urology in [place], [place] [address] [place] [address] Ganesh Miller M.D. [address] [place] [phone] Health Maintenance Due Date Last Done Comments Creatinine Level (Kidney Fun ction Test) 01/10/2021 01/11/2020, 02/11/2014, 09/30/2013, Additional history exists Potassium Level 01/10/2021 01/11/2020, 02/11/2014 Sodium Level 01/10/2021 01/11/2020, 02/11/2014 Depression Screening (Annual PHQ-2) 09/02/2023 Fall Risk Screen (Annual) 09/02/2023 DTaP,Tdap,and Td Vaccines (3 - Td or Tdap) 01/01/2030 01/02/2020, 11/30/2009 Pneumococcal vaccine (65+ years) Completed 05/16/2017, 09/17/2009, 07/03/2009 Zoster Vaccines Completed 10/20/2018, 02/0 09/2018, 08/18/2018, Additional history exists Influenza Vaccine Completed 05/21/2023, , 05/20/2021, Additional history exists COVID-19 Vaccine Completed 06/12/2023, 08/2022, 01/20/2022, Additional history exists Medical Devices Implanted Type Area Facilities Coordinator Device Identifier Shelf Expiration Date Model / Serial / Lot K-Wire-Ss 4 Smooth .062 - [id number] Implanted:Qty: 2 on 09/05/2011 Hardware e.g. pins/screws /rods [place] Description:Device Manufactu rer - Peña Yuan.. Device Status Text - [id number]-871. Mesh Or Patch Mesh or Patch Abdomen Ocular Lens Ocular Lens Bilateral: Eye Description:Cataract surgery Advance Directives For more information, please contact: [phone] Documents on File Type Date Recorded Patient Cigarette Lighter Repairer Expl anation Advance Directives 10/13/2009 12:00 AM Leg acy document. See document viewer. Advance Directives 10/13/2009 12:00 AM Leg acy document. See document viewer. Advance Directives 05/06/2007 12:00 AM Lega cy document. See document viewer. Care Teams Development Manager Relationship Specialty Start Date End Date Elsewhere, Pcp PCP - General Internal Medicine 04/22/23
--- OUTSIDE RECORDS SUMMARY | 2023-09-12 12:16 | XMS_ITS | Encounter Summary ---
Author Name Unknown Organization [facility] Address [address] [place] [address] Care Team Providers Care Direct Care Worker Name Role Phone Edwige Negrete MD Primary Care Provider [phone] Reason for Visit * Reason Onset Date Comments Appointment 08/19/2023 Lexiscan Encounter Details Date Type Department Care Team (Late st Contact Info) Description 08/19/2023 [facility] [address] [place] [address] [address] [place] [address] None Appointment (Lexiscan ) Social History Tobacco Use Types Packs/Day Years [...] on file documented as of this encounter Miscellaneous Notes * Telephone Encounter - Cassidy Barajas - 08/19/2023 11:13 AM CST [facility] Phone Message May a detailed message be left on voicemail: yes Reason for Call: Other: Please call after 2pm today to assist pt in scheduling the lexiscan stress test. Action Taken: Other: Cardiology Travel Screening: Not Applicable Thank you! [facility] CORNER MACHINE OPERATOR documented in this encounter Plan of Treatment Not on file documented as of this encounter Visit Diagnoses Not on filedocumented in this encounter Care Teams Direct Care Worker Relationship Specialty Start [place] [address] [place] [address] PCP - General Family Practice 07/21/19 documented as of this encounter
--- OUTSIDE RECORDS SUMMARY | 2023-09-12 12:17 | XMS_ITS | Clinical Summary ---
Author Name Unknown Organization [facility] Address [address], [place] [address] Care Team Providers Care French Instructor Name Role Phone Unassigned, Provider Primary Care Provider Unava ilable Source Comments You are receiving this document as you are listed as the primary care provider,follow-up provider, or the patient has been referred to you for consultation.This is in compliance with the Medicare and[facility] EHR Incentive Program,which states Providers who transition their patient to another setting of careor provider of care or refers their patient to another provider of care shouldprovide summary care record for each transition of care or referral. Replaced by [facility] Allergies No known active allergies Medications Medication Sig Dispensed Refills Start Date End Date Status BISOPROLOL-HCTZ (ZIAC) 5-6.25 MG tablet Take 1 tablet by mouth daily (every 24 hours). LW Addl Instr:Indicated for: High Blood Pressure 90 3 01/16/2010 Active multivitamin with minerals (CENTRUM) tablet Indications: PN: 0 01/16/2010 Active unknown medication Indications: PN: 0 01/16/2010 Active mupirocin (BACTROBAN) 2 % ointmentIndications: Melanoma in situ of scalp (HRC) Apply on wound once or twice daily. 22 g 3 02/11/2019 Active oxyCODONE-acetaminop hen (PERCOCET) 5-325 MG tabletIndications:Me lanoma in situ of scalp (HRC) Take 1-2 Tablets by mouth every 4 hours as needed. 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 Social History Tobacco Use Types Packs/Day Years Used Date Smoking Tobacco: Never Sex and Gender Information Value Date Recorded Sex Assigned at Not on file Gender Identity Not on file Sexual Orientation Not on file Last Filed Vital Signs Vital Sign Reading Time Taken Comments Blood Pressure 124/74 02/11/2019 9:50 AM CDT Pulse - - Temperature - - Respiratory Rate - - Oxygen Saturation - - Inhaled Oxygen Concentration - - Weight - - Height - - Body Mass Index - - Plan of Treatment Health Maintenance Due Date Last Done Comments Medicare Annual Wellness Visit 1940 COVID-19 Vaccine (#1) 1940 Influenza (#1) 2023 06/03/2019, 05/04, 05/08/2017 DTaP/Tdap/Td (3 - Tdap) 01/01/2030 01/02/2020, 11/30 HepA Aged Out 09/03/2012 No longer eligi ble based on patient's age to complete this topic Pneumococcal 65+ Yrs Completed 05/16/2017, 09/17/2009, 07/03/2009 Zoster/Shingles Completed 10/20/2018, 09/2018, 08/18/2018, Additional history exists HepB Aged Out No longer eligi ble based on patient's age to complete this topic Hib Aged Out No longer eligi ble based on patient's age to complete this topic IPV (Polio) Aged Out No longer eligi ble based on patient's age to complete this topic MCV4 Aged Out No longer eligi ble based on patient's age to complete this topic Care Teams French Instructor Relationship Specialty Start Date End Date Unassigned, Provider [address] [place] [address] PCP - General 11/03/00
--- OUTSIDE RECORDS SUMMARY | 2023-09-12 12:17 | XMS_ITS | Encounter Summary ---
Author Name Unknown Organization [facility] Address [address] [place] [address] Care Team Providers Care Director Of Market Analysis Name Role Phone Elsewhere, Pcp Primary Care Provider Unavailabl e Reason for Visit * Outpatient (Routine) - Closed Specialty Diagnoses / Procedures Referred By Contac t Referred To Contact Diagnoses Benign Prostatic Hyperplasia Hypertrophy With Obstruction Procedures URO Uroflow Bravo Gonzalez M.B., B.Ch. [address] [place] [phone] [facility] Referral ID Status Reason Start Date Expiration Date Visits Re quested Visits Authorized [id number] Closed 03/25/2023 03/24/2024 1 1 Encounter Details Date Type Department Care Team (Latest Contact Info) Description 04/25/2023 11:00 AM CDT Procedure visit Department of Urology in [place], [place] [address] [place] [phone] Bravo Gonzalez M.B., B.Ch. [address] [place] [phone] Francisco Muñoz M.D. [address] [place] [phone] Benign Prostatic Hyperplasia Hypertrophy With Obstruction Social History Tobacco Use Types Packs/Day Years Used Date Smoking Tobacco: Never Smokeless Tobacco: Never Social Connection and Isolat ion Panel [NHANES] Answer Date Recorded In a typical week, how many times do you talk on the phone with family, friends, or neighbors? More than three times a week 01/11/2020 How often do you get togethe r with friends or relatives? Three times a week 01/11/2020 How often do you attend chur ch or presybeterian services? More than 4 times per year 01/11/2020 Do you belong to any clubs o r organizations such as hindu groups, unions, fraternal or athletic groups, or [...] and heating? Not hard at all 01/11/2020 [facility] [place] of Occupat ional Health - Occupational Stress [...] as of this encounter Progress Notes * Hazel Hutton R.N. - 04/25/2023 11:00 AM CDT CHIEF COMPLAINT Patient here for a complex uroflow via calibrated electronic equipment and a residual urine check by ultrasound. IMPRESSION/REPORT/PLAN Bravo Petty B.Ch ordered the patient to have a complex uroflow with residual urine check via ultrasound. Patient had a moderate urge to void. Uroflow was completed at this time. Patient voided 21 mL's and had a ultrasound residual of 0 mL's. Patient rates pain at 0 on the 0 to 10 pain scalepost procedure. documented in this encounter Procedure Notes * Francisco Muñoz M.D. - 04/25/2023 11:00 AM CDTAssociated Order(s): URO UROFLOW REASON FOR VISIT: Uroflow: The patient here for a complex uroflow via calibrated electronic equipment and a residual urine check by ultrasound. FINDINGS: Peak flow 8 ml/sec Average flow 4 ml/sec Total voided volume 21 mls Residual urine 0 ml by ultrasound Valsalva flow pattern IMPRESSION: Low voided volume with low postvoid residual. documented in this encounter Plan of Treatment Upcoming Encounters Date Type Department Care Team (Late st Contact Info) Description 10/03/2023 10:15 AM TRAIN ENGINEER Procedure visit Department of Urology in [place], [place] [address] [place] [phone] Chanel Concepcion M.D., M.B.A. [address] [place] [phone] 10/03/2023 11:30 AM TRAIN ENGINEER Office Visit Department of Urology in [place], [place] [address] [place] [phone] Ganesh Miller M.D. [address] [place] [phone] documented as of this encounter Procedures Procedure Name Priority Date/Time Associated Diagnosis Comments URO UROFLOW Routine 04/25/2023 11:00 AM CDT Benign Prostatic Hyperplasia Hypertrophy With Obstruction documented in this encounter Results * URO Uroflow (04/25/2023 11:00 AM CDT) Narrative Francisco Muñoz M.D. - 04/25/2023 11:00 AM CDT Francisco Muñoz M.D. ? 04/26/2023 ??9:01 AM REASON FOR VISIT: Uroflow: The patient here for a complex uroflow via calibrated electronic equipment and a residual urine check by ultrasound. FINDINGS: Peak flow 8 ml/sec Average flow 4 ml/sec Total voided volume 21 mls Residual urine 0 ml by ultrasound Valsalva flow pattern IMPRESSION: Low voided volume with low postvoid residual. ?? Bravo Petty, B.Ch. UROLOGY MONICA JIMENEZ documented in this encounter Visit Diagnoses Diagnosis Benign Prostatic Hyperplasia Hypertrophy With Obstruction documented in this encounter Additional Health Concerns Assessment Noted Time PHQ-9 Depression Total Score: 1 07/16/20 13 2:30 PM TRAIN ENGINEER documented as of this encounter Care Teams Director Of Market Analysis Relationship Specialty Start Date End Date Elsewhere, Pcp PCP - General Internal Medicine 04/22/23 documented as of this encounter
--- OUTSIDE RECORDS SUMMARY | 2023-09-12 12:17 | XMS_ITS | Encounter Summary ---
Author Name Unknown Organization [facility] Address [address] [place] [address] Care Team Providers Care Block Layer Name Role Phone Unavailable Primary Care Provider Unavailabl e Reason for Referral * Outpatient (Routine) - Closed Specialty Diagnoses / Procedures Referred By Contalex t Referred To Contact Urology Diagnoses Primary Malignant Neoplasm Of Prostate (HCC) Nocturia Merrill Mejia M.D. [address] [place] [address] [facility] Referral ID Status Reason Start Date Expiration Date Visits Re quested Visits Authorized [id number] Closed 03/21/2023 03/20/2024 1 1 Encounter Details Date Type Department Care Team (Late st Contact Info) Description 03/21/2023 [facility] [address] [place] [address] Merrill Mejia M.D. [address] [place] [address] Primary Malignant Neoplasm Of Prostate (HCC) (Primary Dx); Nocturia Social History Tobacco Use Types Packs/Day [...] often do you attend chur ch or uatsdin services? More than 4 times per year 01/11/2020 Do you belong to any clubs o r organizations such as zoroastrianism groups, unions, fraternal or athletic groups, or [...] and heating? Not hard at all 01/11/2020 [facility] Occupat ional Health - Occupational Stress [...] st Contact Info) Description 10/03/2023 10:15 AM FITNESS MANAGER Procedure visit Department of Urology in [place], [place] [address] [place] [phone] Chanel Concepcion M.D., M.B.A. [address] [place] [phone] 10/03/2023 11:30 AM FITNESS MANAGER Office Visit Department of Urology in [place], [place] [address] [place] [phone] Ganesh Miller M.D. [address] [place] [phone] Scheduled Referrals Name Type Priority Associated Diagnoses Orde r Schedule Urology Referral Outpatient Referral Routine Primary Malignant Neoplasm Of Prostate (HCC) Nocturia Expected: 03/21/2023 (Approximate), Expires: 06/21/2024 documented as of this encounter Visit Diagnoses Diagnosis Primary Malignant Neoplasm Of Prostate (HCC)- Primary Nocturia documented in this encounter Additional Health Concerns Assessment Noted Time PHQ-9 Depression Total Score: 1 07/16/20 13 2:30 PM FITNESS MANAGER documented as of this encounter
--- OUTSIDE RECORDS SUMMARY | 2023-09-12 12:17 | XMS_ITS | Clinical Summary ---
Author Name Unknown Organization [facility] Address [place], [place] [address] Care Team Providers Care Sales Support Representative Name Role Phone Edwige Negrete MD Primary Care Provider [phone] Allergies Active Allergy Reactions Criticality Noted Date Comments Cat Dander *Unknown 02/11/2014 sneezing Medications Medication Sig Dispensed Refills Start Date End Date Status acetaminophen (TYLENOL) 325 mg cap Take 500 mg by mouth. 0 Active acetaminophen/diphe nhydramine (DIPHENHYDRAMINE-AC ETAMINOPHEN ORAL) Take 1 tablet by mouth. 0 02/11/2014 Active glipiZIDE (GLUCOTROL) 10 mg tablet Take 5 mg by mouth. 0 Activ e atenolol-chlorthali done, 50-25 mg, (TENORETIC 50) 50-25 mg tablet Take 1 tablet by mouth once daily. 0 08/02/2020 Active brimonidine (ALPHAGAN) 0.2 % ophthalmic solution INSTILL 1 DROP IN LEFT EYE 2 TIMES DAILY,START 3 DAYS PRIOR TO SUGERY 0 08/16/2020 Active calcium with vitamin D3 (OS-AZUL 500 + D) tablet Take 1 tablet by mouth. 0 Active cholecalciferol, Vitamin D3, 2,000 unit tablet Take 1 tablet by mouth. 0 02/11/2014 Active clindamycin phosphate 1% topical 1 % external solution Apply topically to affected area(s) once every other day. 0 02/11/2014 Active BASAGLAR KWIKPEN U-100 INSULIN 100 unit/mL (3 mL) pen INJECT 55 UNITS UNDER THE SKIN ONCE DAILY 0 08/18/2020 Active ketoconazole 2% topical (NIZORAL) cream 0 01/13/2020 Active ketorolac 0.5 % ophthalmic (ACULAR) solution INSTILL 1 DROP IN LEFT EYE 4 TIMES DAILY,START 3 DAYS PRIOR TO SURGERY 0 08/16/2020 Active moxifloxacin (VIGAMOX) 0.5 % ophthalmic solution INSTILL 1 DROP IN LEFT EYE 4 TIMES DAILY,START 3 DAYS PRIOR TO SURGERY 0 08/16/2020 Active multivitamins-letter of credit document examiner als-lutein (CENTRUM SILVER) 0.4-300-250 mg-mcg-mcg tab Take 1 tablet by mouth. 0 02/11/2014 Active mupirocin (BACTROBAN OINTMENT) ointment Apply on wound once or twice daily. 0 02/11/2019 Active oxyCODONE-acetamino phen, 5-325 mg, (PERCOCET) 5-325 mg per tablet Take 1-2 tablets by mouth every 4 hours if needed 0 02/11/2019 Active oxymetazoline (AFRIN) 0.05 % nasal spray Inhale 2 Sprays in the nostril(s). 0 Active BD INSULIN PEN NEEDLE UF 31 gauge x 5/16 USE TWICE DAILY WITH INSULIN 0 08/02/2020 Active simvastatin (ZOCOR) 20 mg tablet Take 1 tablet by mouth. 0 02/11/2014 Active timoloL maleate (TIMOPTIC) 0.5 % ophthalmic solution INSTILL 1 DROP IN LEFT EYE 2 TIMES DAILY,START 3 DAYS PRIOR TO SURGERY 0 08/16/2020 Active triamcinolone (ARISTOCORT; KENALOG) 0.1 % cream 0 05/03/2020 Active vitamin e 400 unit capsule Take 1 capsule by mouth once every other day. 0 02/11/2014 Active zolpidem (AMBIEN) 10 mg tablet Take 1 tablet by mouth. 0 02/11/2014 Active acetaminophen (TYLENOL) 325 mg tabletIndications:S tatus post cataract extraction, unspecified laterality Take 1-2 tablets by mouth every 4 hours if needed. Max acetaminophen dose: 4000mg in 24 hrs. 0 10/04/2020 Active moxifloxacin (VIGAMOX) 0.5 % ophthalmic solutionIndications :Status post cataract extraction, unspecified laterality Place 1 Drop into the eye(s) 4 times daily. 3 mL 0 10/04/2020 Active prednisoLONE acetate 1% ophthalmic (ECONOPRED PLUS, PRED FORTE, OMNIPRED) suspensionIndicatio ns:Status post cataract extraction, unspecified laterality Place 1 Drop into the eye(s) 4 times daily. 5 mL 0 10/04/2020 Active flurbiprofen (OCUFEN) 0.03 % ophthalmic solutionIndications :Status post cataract extraction, unspecified laterality Place 1 Drop into the eye(s) 4 times daily. Patient will have Ketorolac to be used 4 times daily into the operative eye until gone. Patient will have Brimonidine to be used 2 times daily into the operative eye until instructed otherwise. Patient will also have Timolol to be used 2 times daily into the operative eye until instructed otherwise. 2.5 mL 0 10/04/2020 Active alendronate (FOSAMAX) 35 mg tablet Take 35 mg by mouth once a week in the morning. Take on empty stomach with full glass of water. Do not lie down for 1 hr. 0 Active bisoprolol-hydrochl orothiazide, 10-6.25 mg, (ZIAC) 10-6.25 mg tablet Take 1 tablet by mouth once daily. 0 Active chlorproMAZINE (THORAZINE) 10 mg tablet Take 10 mg by mouth 3 times daily. Take 25-50 mg by mouth 0 Active clindamycin (CLEOCIN) 300 mg capsule Take 300 mg by mouth 3 times daily. 0 Active eszopiclone (LUNESTA) 2 mg tablet Take 2 mg by mouth at bedtime. 0 Active indomethacin (INDOCIN) 50 mg capsule Take 50 mg by mouth 3 times daily with meals. 0 Active naproxen sodium 220 mg cap Take by mouth. 0 Active neomycin-polymyxin- dexamethasone (MAXITROL) 3.5mg/mL-10,000 unit/mL-0.1 % ophthalmic suspension 1 Drop 4 times daily. 0 Active OMEGA-3 FATTY ACIDS ORAL Take by mouth. 0 Active Accu-Chek Negin Plus test strp stripIndications:Di abetes mellitus without complication (HC) USE TO TEST BLOOD SUGAR TWICE DAILY DX: E11.9 100 Strip 3 12/23/2020 Active Accu-Chek Softclix LancetsIndications: Diabetes mellitus without complication (HC) USE TO TEST BLOOD SUGAR TWICE DAILY. E11.40 DUE FOR LABS/APPOINTMENT 200 Each 3 12/30/2020 Active glipiZIDE extended-release (GLUCOTROL XL) 10 mg Extended-Release tabletIndications:D iabetes mellitus without complication (HC) Take 1 Tablet (10 mg) by mouth once daily. 90 Tablet 0 02/28/2021 Active Active Problems No known active problems Immunizations Name Administration Dates Next Due COVID-19 vaccine (icomasoft 30mcg/0.3mL) P F, MONALISA 11/17/2020,10/27/2020 Social History Tobacco Use Types Packs/Day Years Used Date Smoking Tobacco: Never Smokeless Tobacco: Never Alcohol Use Standard Drinks/Week Comments Yes 1 (1 standard drink = 0.6 oz pur e alcohol) 2-3 glsses per of wine Social Connections Answer Date Recorded Frequency of Communication with Friends and Fami ly Not on file 09/01/2021 Financial Resource Strain Answer Date R ecorded Difficulty of Paying Living Expenses Not on file 09/01/2021 Difficulty of Paying Living Expenses Not on file 09/01/2021 Sex and Gender Information Value Date Recorded Sex Assigned at Not on file Gender Identity Not on file Sexual Orientation Not on file Obstetrics History Last Filed Vital Signs Vital Sign Reading Time Taken Comments Blood Pressure 161/75 10/18/2020 11:18 AM JEWEL FLAT SURFACER Pulse 62 10/18/2020 11:18 AM JEWEL FLAT SURFACER Temperature 36.7 ??C (98.1 ??F) 10/18/2020 1 0:47 AM JEWEL FLAT SURFACER Respiratory Rate 18 10/18/2020 11:1 8 AM JEWEL FLAT SURFACER Oxygen Saturation 96% 10/18/2020 11: 18 AM JEWEL FLAT SURFACER Inhaled Oxygen Concentration - - Weight 100.9 kg (222 lb 7.1 oz) 10/18/2020 8:27 AM JEWEL FLAT SURFACER Height 185.4 cm (6' 1) 10/18/2020 8:27 AM JEWEL FLAT SURFACER Body Mass Index 29.35 10/18/2020 8:27 AM JEWEL FLAT SURFACER Plan of Treatment Health Maintenance Due Date Last Done Comments Tdap 01/29/1951 Depression screening for age 12+ 1952 Tetanus booster 1960 Zoster (shingles) series for age 50+ (1 of 2) 01/29/1990 Medicare Wellness for age 65+ 01/29/2005 Pneumococcal series for age 65+ (1 of 1 - PCV) 01/29/2005 BMI (ht and wt on same day) for age 18+ 09/28/2021 0 09/28/2020 COVID-19 vaccine series (3 - 2022-24 season) 2023 11/17/2020, 10/27/2020 Influenza for age 65+ 05/03/2023 Medical Devices Implanted Type Area Tire Building Supervisor Device Identifier Shelf Expiration Date Model / Serial / Lot Iol Stigma +19.5 [employer] Toric [id number] - [id number] Implanted:Qty: 1 on 10/04/2020 by Richard Simeon MD at [facility] Left: Eye [employer] 06/07/2021 [id number] / [id number] / Iol Stigma +18.5 [employer] Toric [id number] - [id number] Implanted:Qty: 1 on 10/18/2020 by Richard Simeon MD at [facility] Right: Eye [employer] 08/06/2023 [id number] / [id number] / Advance Directives Latest Code Status on File Code Status Date Activated Date Inactivated Comments Full Code 10/18/2020 8:06 AM 10/19/2020 2:33 AM Suspe nd DNR wishes during procedure and immediate post anesthesia period. Question Answer Comments Code Status Discussion: Discussed Code Status History Code Status Date Activated Date Inactivated Comments Full Code 10/04/2020 8:40 AM 10/04/2020 2:15 PM Suspend DNR wishes during procedure and immediate post anesthesia period. Question Answer Comments Code Status Discussion: Discussed Care Teams Sales Support Representative Relationship Specialty Start [place] [address] [place] [address] PCP - General Family Practice 08/12/20
--- OUTSIDE RECORDS SUMMARY | 2023-09-12 12:17 | XMS_ITS | Encounter Summary ---
Author Name Unknown Organization [facility] Address [address] [place] [address] Care Team Providers Care Assembly Detailer Name Role Phone Elsewhere, Pcp Primary Care Provider Unavailabl e Encounter Details Date Type Department Care Team (Late st Contact Info) Description 05/07/2023 Clinical Communication Department of Urology in [place], [place] [address] [place] [address] Rachel Guillory M.D. [address] [place] [address] Social History Tobacco Use Types Packs/Day Years [...] often do you attend chur ch or jehovah's witness services? More than 4 times per year 01/11/2020 Do you belong to any clubs o r organizations such as hoahaoism groups, unions, fraternal or athletic groups, or [...] and heating? Not hard at all 01/11/2020 [facility] Occupat ional Health - Occupational Stress [...] encounter Miscellaneous Notes * Telephone Encounter - Rachel Guillory M.D. - 05/07/2023 4:57 PM CDT Phone call to patient to discuss prior authorization of medications. Informed him that myrbetriq isapproved and I have therefore prescribed this medication to his local pharmacy. He should take thisonce daily. We will keep his appointment on 06/10 to follow-up, however he would prefer phone visit.Informed him that if Myrbetriq is not working well for him symptoms, we will add Trospium and submit for re-authorization. Patient verbalized understanding. He is aware he will be seeing my partner, Dr. Concepcion for that follow-up appointment. He will get his BP checked by his local PCP in 2 weeks. PCP: Dr. Mejia [facility] Rachel Guillory M.D. documented in this encounter Plan of Treatment Upcoming Encounters Date Type Department Care Team (Late st Contact Info) Description 10/03/2023 10:15 AM ASSOCIATE JUSTICE Procedure visit Department of Urology in [place], [place] [address] [place] [phone] Chanel Concepcion M.D., M.B.A. [address] [place] [phone] 10/03/2023 11:30 AM ASSOCIATE JUSTICE Office Visit Department of Urology in [place], [place] [address] [place] [phone] Ganesh Miller M.D. [address] [place] [phone] documented as of this encounter Visit Diagnoses Not on filedocumented in this encounter Additional Health Concerns Assessment Noted Time PHQ-9 Depression Total Score: 1 07/16/20 13 2:30 PM ASSOCIATE JUSTICE documented as of this encounter Care Teams Assembly Detailer Relationship Specialty Start Date End Date Elsewhere, Pcp PCP - General Internal Medicine 04/22/23 documented as of this encounter
--- OUTSIDE RECORDS SUMMARY | 2023-09-12 12:17 | XMS_ITS | Encounter Summary ---
Author Name Unknown Organization [facility] Address [address] [place] [address] Care Team Providers Care Residence Life Coordinator Name Role Phone Elsewhere, Pcp Primary Care Provider Unavailabl e Encounter Details Date Type Department Care Team (Late st Contact Info) Description 04/26/2023 Orders Only Pharmacy Prior Auth [facility] [phone] Ruba Han Social History Tobacco Use Types Packs/Day Years [...] often do you attend chur ch or druze services? More than 4 times per year 01/11/2020 Do you belong to any clubs o r organizations such as mosque groups, unions, fraternal or athletic groups, or [...] and heating? Not hard at all 01/11/2020 [facility] Occupat ional Health - [...] st Contact Info) Description 10/03/2023 10:15 AM APPLICATIONS PROGRAMMER Procedure visit Department of Urology in [place], [place] [address] [place] [address] Chanel Concepcion M.D., M.B.A. [address] [place] [phone] 10/03/2023 11:30 AM APPLICATIONS PROGRAMMER Office Visit Department of Urology in [place], [place] [address] [place] [address] Ganesh Miller M.D. [address] [place] [phone] documented as of this encounter Visit Diagnoses Not on filedocumented in this encounter Additional Health Concerns Assessment Noted Time PHQ-9 Depression Total Score: 1 07/16/20 13 2:30 PM APPLICATIONS PROGRAMMER documented as of this encounter Care Teams Residence Life Coordinator Relationship Specialty Start Date End Date Elsewhere, Pcp PCP - General Internal Medicine 04/22/23 documented as of this encounter
--- OUTSIDE RECORDS SUMMARY | 2023-09-12 12:17 | XMS_ITS | Encounter Summary ---
Author Name Unknown Organization [facility] Address [address] [place] [address] Care Team Providers Care Pipe Stem Aligner Name Role Phone Elsewhere, Pcp Primary Care Provider Unavailabl e Encounter Details Date Type Department Care Team (Late st Contact Info) Description 05/04/2023 Orders Only Department of Urology in [place], [place] [address] [place] [phone] Rachel Guillory M.D. [address] [place] [phone] Social History Tobacco Use Types Packs/Day Years [...] often do you attend chur ch or latter-day services? More than 4 times per year 01/11/2020 Do you belong to any clubs o r organizations such as confucianist groups, unions, fraternal or athletic groups, or [...] st Contact Info) Description 10/03/2023 10:15 AM AUTOMOTIVE PAINTER Procedure visit Department of Urology in [place], [place] [address] [place] [phone] Chanel Concepcion M.D., M.B.A. [address] [place] [phone] 10/03/2023 11:30 AM AUTOMOTIVE PAINTER Office Visit Department of Urology in [place], [place] [address] [place] [phone] Ganesh Miller M.D. [address] [place] [phone] documented as of this encounter Visit Diagnoses Not on filedocumented in this encounter Additional Health Concerns Assessment Noted Time PHQ-9 Depression Total Score: 1 07/16/20 13 2:30 PM AUTOMOTIVE PAINTER documented as of this encounter Care Teams Pipe Stem Aligner Relationship Specialty Start Date End Date Elsewhere, Pcp PCP - General Internal Medicine 04/22/23 documented as of this encounter
--- OUTSIDE RECORDS SUMMARY | 2023-09-12 12:17 | XMS_ITS | Encounter Summary ---
Author Name Unknown Organization [facility] Address [address] [place] [address] Care Team Providers Care Boiler Shop Supervisor Name Role Phone Elsewhere, Pcp Primary Care Provider Unavailabl e Reason for Referral * Medication Prior Authorization - Denied Specialty Diagnoses / Procedures Referred By Noah ng Referred To Contact Rachel Guillory M.D. [address] [place] [phone] Referral ID Status Reason Start Date Expiration Date Visits Re quested Visits Authorized [id number] Denied 1 1 * Outpatient (Routine) - Closed Specialty Diagnoses / Procedures Referred By Noah ng Referred To Contact Urology Rachel Guillory M.D. [address] [place] [phone] Rachel Guillory M.D. [address] [place] [address] Referral ID Status Reason Start Date Expiration Date Visits Re quested Visits Authorized [id number] Closed 04/25/2023 04/24/2026 1 1 Reason for Visit * Outpatient (Routine) - Closed Specialty Diagnoses / Procedures Referred By Noah ng Referred To Contact Urology Diagnoses Primary Malignant Neoplasm Of Prostate (HCC) Nocturia Merrill Mejia M.D. [address] [place] [address] [facility] Referral ID Status Reason Start Date Expiration Date Visits Re quested Visits Authorized [id number] Closed 03/21/2023 03/20/2024 1 1 Encounter Details Date Type Department Care Team (Latest Contact Info) Description 04/25/2023 1:30 PM CDT Comprehensive Visit Department of Urology in [place], [place] [address] [place] [phone] Rachel Guilolry M.D. [address] [place] [phone] Primary Malignant Neoplasm Of Prostate (HCC); Nocturia Social History Tobacco Use Types Packs/Day [...] often do you attend chur ch or bahai services? More than 4 times per year [...] and heating? Not hard at all 01/11/2020 [facility] of Occupat ional Health - Occupational Stress [...] on file documented as of this encounter H&P Notes * Rachel Guillory M.D. - 04/25/2023 1:30 PM CDT SUBJECTIVE REQUESTING PROVIDER Merrill Mejia M.D. REASON FOR CONSULT Urinary symptoms REPORTS ANALYSIS MANAGER calendar HISTORY OF PRESENT ILLNESS Mr. Alaniz is a very pleasant 83 year old gentleman presenting for evaluation of urinary urgencyand frequency. 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 Over the last few months, he has noticed worsening urgency, frequency, nocturia. Voids every 2hrs during the daytime and every 1-2hrs at nighttime. Small volume voids throughout the day. Avoids bladder irritants. No concerns with constipation. Denies hematuria or recurrent infections. Denies obstructive symptoms of weak stream, hesitancy, postvoid dribbling. Lower Urinary Symptoms Lower Urinary Sx: able to sense full bladder (+) frequency (+) nocturia (+) Obstructive Sx: kidney infections or required hospitalization for kidney failure (-) # of UTI's in past year: None Required catheter: no Incontinence: unintentionally leaks urine (-) Treatments: Treatments taken for urinary symptoms: none Medical Treatment Prior Surgical Treatment Prostate Surgery: Bladder Botox: TURP: Radiation therapy: Anti-incontinence and prolapse procedures: Urethral procedures: Interstim: Standardized questionnaires AUASS-- /35 IIEF-15-- Erectile Function: /30 Orgasmic Function: /10 Sexual Desire: /10 [place] Satisfaction: /15 Overall satisfaction: /10 Total Score: /75 The following portions of the patient's history were reviewed and updated as appropriate: allergies, current medications, family history, medical history, social history, surgical history, and problem list. REVIEW OF SYSTEMS Genitourinary: Positive for urgency and frequent urination. The following systems were negative: Gastrointestinal OBJECTIVE PHYSICAL EXAM There were no vitals filed for this visit. Constitutional: He is oriented to person, place, and time. He appears well- developed and well-nourished. HENT: Head: Normocephalic and atraumatic. Eyes: Conjunctivae are normal. Pulmonary/Chest: Effort normal. Musculoskeletal: Normal range of motion. Neurological: He is alert and oriented to person, place, and time. Skin: Skin is warm and dry. Psychiatric: He has a normal mood and affect. His behavior is normal. LABORATORY Lab Results Component Value Date PSA <0.10 04/03/2018 PSA <0.10 03/18/2017 Lab Results Component Value Date HGB 15.4 01/11/2020 HCT 46.3 01/11/2020 CREATININEUR 151 02/11/2014 PSA <0.10 04/03/2018 ALKPHOS 58 01/11/2020 AST 30 01/11/2020 ALT 41 01/11/2020 Testing Uroflow: voided only 21cc with PVR 0 and decreased Qmax. ASSESSMENT / PLAN #1 Primary Malignant Neoplasm Of Prostate (HCC) #2 Nocturia #3 Urgency It was my pleasure to meet with Mr. Alaniz and his today in clinic for further discussion of irritative voiding symptoms. I explained that this can be related to radiation treatment versus change in bladder function with time. Also explained that could be an obstructive component such as vesicourethral anastomotic stenosis. I reviewed options of proceeding first with cystoscopy to rule out obstructive etiologies versus trialing medications. Patient was most interested in trialing medications. We discussed trospium given his age. Side effects including dry eyes, dry mouth, constipation, were reviewed. We discussed that the medication can take 4-6 weeks to take effect. If he does not have improvement in symptoms with this, we can trial a different medication versus move directly to third line therapy for overactive bladder. Patient is more interested in trialing a second medication prior to starting more invasive treatments. I also strongly encouraged him to undergo a cystoscopyif he is not having desired outcome of medication therapy. Plan for follow-up via phone in 6 weeks. Signed by: Rachel Guillory M.D. 04/25/2023 1:57 PM CDT documented in this encounter Plan of Treatment Upcoming Encounters Date Type Department Care Team (Late st Contact Info) Description 10/03/2023 10:15 AM HARDWARE ASSEMBLER Procedure visit Department of Urology in [place], [place] [address] [place] [address] Chanel Concepcion M.D., M.B.A. [address] [place] [phone] 10/03/2023 11:30 AM HARDWARE ASSEMBLER Office Visit Department of Urology in [place], [place] [address] [place] [address] Ganesh Miller M.D. [address] [place] [address] Scheduled Referrals Name Type Priority Associated Diagnoses Orde r Schedule Urology office visit (clinic) Outpatient Referral Routine Expected: 06/06/2023, Expires: 07/26/2024 documented as of this encounter Visit Diagnoses Diagnosis Primary Malignant Neoplasm Of Prostate (HCC) Nocturia documented in this encounter Additional Health Concerns Assessment Noted Time PHQ-9 Depression Total Score: 1 07/16/20 13 2:30 PM HARDWARE ASSEMBLER documented as of this encounter Care Teams Boiler Shop Supervisor Relationship Specialty Start Date End Date Elsewhere, Pcp PCP - General Internal Medicine 04/22/23 documented as of this encounter
--- OUTSIDE RECORDS SUMMARY | 2023-09-12 12:17 | XMS_ITS | Encounter Summary ---
Author Name Unknown Organization [facility] Address [address] [place] [address] Care Team Providers Care Mixing Plant Operator Name Role Phone Elsewhere, Pcp Primary Care Provider Unavailabl e Reason for Visit * Reason Onset Date Comments Pre-visit Intake 04/22/2023 Encounter Details Date Type Department Care Team (Latest Contact Info) Description 04/22/2023 Clinical Communication Virtual Review in [place], [place] [address] [place], [place] [phone] Provider, Unknown Pre-visit Intake Social History Tobacco Use Types [...] often do you attend chur ch or jew services? More than 4 times per year 01/11/2020 Do you belong to any clubs o r organizations such as spiritism groups, unions, fraternal or athletic groups, or [...] and heating? Not hard at all 01/11/2020 [facility] - Occupational Stress Questionnaire Answer Date Recorded [...] st Contact Info) Description 10/03/2023 10:15 AM LICENSE EXAMINER Procedure visit Department of Urology in [place], [place] [address] [place] [phone] Chanel Concepcion M.D., M.B.A. [address] [place] [phone] 10/03/2023 11:30 AM LICENSE EXAMINER Office Visit Department of Urology in [place], [place] [address] [place] [address] Ganesh Miller M.D. [address] [place] [phone] documented as of this encounter Visit Diagnoses Not on filedocumented in this encounter Additional Health Concerns Assessment Noted Time PHQ-9 Depression Total Score: 1 07/16/20 13 2:30 PM LICENSE EXAMINER documented as of this encounter Care Teams Mixing Plant Operator Relationship Specialty Start Date End Date Elsewhere, Pcp PCP - General Internal Medicine 04/22/23 documented as of this encounter
--- OUTSIDE RECORDS SUMMARY | 2023-09-12 12:17 | XMS_ITS | Encounter Summary ---
Author Name Unknown Organization [facility] Address [address] [place] [address] Care Team Providers Care Sponge Clipper Name Role Phone Elsewhere, Pcp Primary Care Provider Unavailabl e Reason for Visit * Reason Onset Date Comments Rx Denial 04/30/2023 TROSPIUM 60 MG 2 4HR CAPSULE Encounter Details Date Type Department Care Team (Latest Contact Info) Description 04/30/2023 Clinical Communication Department of Urology in [place], [place] [address] [place] [phone] Rachel Guillory M.D. [address] [place] [phone] Rx Denial (TROSPIUM 60 MG 24HR CAPSULE) Social History Tobacco Use Types Packs/Day Years [...] often do you attend chur ch or christianity services? More than 4 times per year [...] and heating? Not hard at all 01/11/2020 [facility] [place] - Occupational Stress [...] encounter Miscellaneous Notes * Telephone Encounter - Alexandre Lua - 05/02/2023 11:58 AM CDT Images from the original note were not included. The patient's health insurer has denied prior authorization for TROSPIUM 60 MG 24HR CAPSULE A screen shot of the denial reason is at the bottom of this communication message. To view the complete denial letter, scroll down to the green Guidance section below and click on the appropriate medication in the Current Prescription Prior Authorizations display. As the prescriber, your options are: Appeal the decision to the insurer directly (see denial letter for how to appeal). Write a new Rx for an alternative medication therapy. Release the Rx to the pharmacy so the patient has the option to pay out of pocket. To Release Rx: Open this encounter, go to [employer], and click on the medication. If the blue ???Release Rx?? button appears as an option, click to release the prescription. If the blue Release Rx button is not visible, the Rx has already been released to the pharmacy. If you have questions, please reply to Ryan REYNA. Thank you, The OPPA Team documented in this encounter Plan of Treatment Upcoming Encounters Date Type Department Care Team (Late st Contact Info) Description 10/03/2023 10:15 AM RETAIL DIRECTOR Procedure visit Department of Urology in [place], [place] [address] [place] [phone] Chanel Concepcion M.D., M.B.A. [address] [place] [phone] 10/03/2023 11:30 AM RETAIL DIRECTOR Office Visit Department of Urology in [place], [place] [address] [place] [phone] Ganesh Miller M.D. [address] [place] [phone] documented as of this encounter Visit Diagnoses Not on filedocumented in this encounter Additional Health Concerns Assessment Noted Time PHQ-9 Depression Total Score: 1 07/16/20 13 2:30 PM RETAIL DIRECTOR documented as of this encounter Care Teams Sponge Clipper Relationship Specialty Start Date End Date Elsewhere, Pcp PCP - General Internal Medicine 04/22/23 documented as of this encounter
--- OUTSIDE RECORDS SUMMARY | 2023-09-12 12:17 | XMS_ITS | Encounter Summary ---
Author Name Unknown Organization [facility] Address [address] [place] [address] Care Team Providers Care Shear Grinder Operator Helper Name Role Phone Elsewhere, Pcp Primary Care Provider Unavailabl e Encounter Details Date Type Department Care Team (Late st Contact Info) Description 05/07/2023 Orders Only Department of Urology in [place], [place] [address] [place] [phone] Rachel Guillory M.D. [address] [place] [address] Social History Tobacco Use Types Packs/Day Years [...] often do you attend chur ch or lutheran services? More than 4 times per year 01/11/2020 Do you belong to any clubs o r organizations such as holiness groups, unions, fraternal or athletic groups, or [...] and heating? Not hard at all 01/11/2020 [facility] - Occupational [...] st Contact Info) Description 10/03/2023 10:15 AM CARE TECH Procedure visit Department of Urology in [place], [place] [address] [place] [phone] Chanel Concepcion M.D., M.B.A. [address] [place] [phone] 10/03/2023 11:30 AM CARE TECH Office Visit Department of Urology in [place], [place] [address] [place] [phone] Ganesh Miller M.D. [address] [place] [phone] documented as of this encounter Visit Diagnoses Not on filedocumented in this encounter Additional Health Concerns Assessment Noted Time PHQ-9 Depression Total Score: 1 07/16/20 13 2:30 PM CARE TECH documented as of this encounter Care Teams Shear Grinder Operator Helper Relationship Specialty Start Date End Date Elsewhere, Pcp PCP - General Internal Medicine 04/22/23 documented as of this encounter
--- OUTSIDE RECORDS SUMMARY | 2023-09-12 12:17 | XMS_ITS | Encounter Summary ---
Author Name Unknown Organization [facility] Address [address] [place] [address] Care Team Providers Care Stoker Erector And Servicer Name Role Phone Elsewhere, Pcp Primary Care Provider Unavailabl e Encounter Details Date Type Department Care Team (Latest Contact Info) Description 04/25/2023 8:50 AM CDT - 04/25/2023 11:59 PM CDT Hospital Encounter Department of Laboratory Medicine and Pathology, [facility] in [place], [place] [address] [place] [address] Bravo Gonzalez M.B., B.Ch. [address] [place] [phone] Benign Prostatic Hyperplasia Hypertrophy With Obstruction Discharge Disposition: Home or Self Care Social [...] often do you attend chur ch or alevism services? More than 4 times per year 01/11/2020 Do you belong to any clubs o r organizations such as samaritan groups, unions, fraternal or athletic groups, or [...] Not hard at all 01/11/2020 [facility] - Occupational [...] Sig Dispensed Refills Start Date End Date acetaminophen (ACETAMINOPHEN EXTRA STRENGTH) 500 mg tablet Take 1 tablet by mouth as needed. pain 0 02/11/2014 acetaminophen/diphenh ydramine (DIPHENHYDRAMINE-ACET AMINOPHEN ORAL) Take 1 tablet by mouth at bedtime as needed. 25 mg/500 mg sleep 0 02/11/2014 atenolol-chlorthalido ne (TENORETIC) 50-25 mg per tablet Take 1 tablet by mouth daily. 0 02/11/2014 BD Ultra-Fine Short Pen Needle 31 gauge x 5/16 needle daily. 0 03/23/2023 blood sugar diagnostic strips (Accu-Chek Negin Plus test strp) USE TO TEST BLOOD SUGAR TWICE DAILY DX: E11.9 0 12/23/2020 cholecalciferol (VITAMIN D3) 2,000 Unit tablet Take 1 tablet by mouth daily. 0 02/11/2014 clindamycin (CLEOCIN T) 1 % external solution Apply topically as needed. 0 02/11/2014 eszopiclone (LUNESTA) 2 mg tablet Take 2 mg by mouth at bedtime. 0 08/06/2022 glipiZIDE (GLUCOTROL XL) 5 mg 24 hr tablet Take 1 tablet by mouth daily. 0 02/11/2014 ibuprofen-diphenhydrA MINE cit (ADVIL PM) 200-38 mg tablet Take 1 tablet by mouth as needed. sleep 0 02/11/2014 INSULIN ASPART, NIACINAMIDE, SC Inject under the skin. Uses sliding scale. Usually uses around 58 units as needed. 0 09/19/2015 insulin glargine 100 unit/mL (3 mL) injection Inject 12 Units under the skin daily. 0 08/26/2015 lidocaine (LIDODERM) 5 % Place 1 patch on the skin daily. Apply to foot 0 losartan (COZAAR) 100 mg tablet Take 100 mg by mouth daily. 0 MAGNESIUM ORAL Take 1 tablet by mouth as needed (muscle cramps). 0 03/18/2017 melatonin 5 mg tablet Take 5 mg by mouth. 0 naproxen sodium (ALEVE) 220 mg tablet Take 1 tablet by mouth as needed. pain 0 02/11/2014 oxymetazoline HCl (AFRIN, OXYMETAZOLINE, NASAL) Administer 1 spray into affected nostril(s) at bedtime as needed. Per nostril for congestion as needed 0 02/11/2014 peg 400-propylene glycol (SYSTANE) 0.4-0.3 % ophthalmic solution Administer 1 drop into both eyes 2 (two) times a day. 0 simvastatin (ZOCOR) 20 mg tablet Take 20 mg by mouth at bedtime. 0 trospium (SANCTURA XR) 60 mg 24 hr capsule Take 1 capsule (60 mg total) by mouth every morning before breakfast. 90 capsule 3 04/25/2023 04/24/2024 vit A/vit C/vit E/zinc/copper (PRESERVISION AREDS ORAL) Take 1 tablet by mouth daily. 0 06/15/2013 zolpidem (AMBIEN) 10 mg tablet Take 1 tablet by mouth as needed. Sleep 0 02/11/2014 acetaminophen-codeine (TYLENOL W/ CODEINE) 300 mg-30 mg /12.5 mL solution Take 1 tablet by mouth as needed. pain 0 02/11/2014 06/07/2023 cholecalciferol (Vitamin D3) 50 mcg (2,000 Unit) tablet Take 50 mcg by mouth daily. 0 06/07/2023 metFORMIN (GLUCOPHAGE) 500 mg tablet Take 500 mg by mouth daily. 0 06/07/2023 multivitamin-minerals -YE-sonvslca-eywqbs (CENTRUM SILVER) 0.4-300-250 mg-mcg-mcg tablet Take 1 tablet by mouth daily. For men 0 02/11/2014 06/07/2023 simvastatin (ZOCOR) 20 mg tablet Take 1 tablet by mouth daily. 0 02/11/2014 06/07/2023 vitamin E 400 unit capsule Take 1 capsule by mouth every other day. 0 02/11/2014 06/07/2023 documented as of this encounter Plan of Treatment Upcoming Encounters Date Type Department Care Team (Late st Contact Info) Description 10/03/2023 10:15 AM FLATWARE MAKER Procedure visit Department of Urology in [place], [place] [address] [place] [address] Chanel Concepcion M.D., M.B.A. [address] [place] [phone] 10/03/2023 11:30 AM FLATWARE MAKER Office Visit Department of Urology in [place], [place] [address] [place] [address] Ganesh Miller M.D. [address] [place] [address] documented as of this encounter Procedures Procedure Name Priority Date/Time Associated Diagnosis Comments DIPSTICK, U Routine 04/25/2023 9:15 AM CDT MICROSCOPIC AUTOMATED Routine 04/25/2023 9:15 AM CDT PH, U Routine 04/25/2023 9:15 AM CDT OSMOLALITY, U Routine 04/25/2023 9:15 AM CDT URINALYSIS WITH MICROSCOPIC Routine 04/25/2023 9:15 AM CDT Benign Prostatic Hyperplasia Hypertrophy With Obstruction documented in this encounter Results * Dipstick, Urine (04/25/2023 9:15 AM CDT) Hemoglobin, QL, U Negative Negative 04/25/2023 10:19 AM CDT DTL Leukocyte Esterase, U Negative Negative 04/25/2023 10:19 AM CDT DTL Nitrite, U Negative Negative 04/25/2023 10:19 AM CDT DTL Ketone, U Negative Negative mg/dL 04/25/2023 10:19 AM CDT DTL Glucose, U Negative Negative mg/dL 04/25/2023 10:19 AM CDT DTL Urine 04/25/2023 9:15 AM CDT 04/25/2023 9:53 AM CDT Bravo Petty, B.Ch. LAB URINE OR DERABLES Performing Organization Address City/State/[facility] Co de Phone Number [facility] [place] [address] [place], [place] [phone] [place] [address] 200 [place] [address] * pH, Urine (04/25/2023 9:15 AM CDT) pH, U 5.5 4.5 - 8.0 04/25/2023 10: 50 AM CDT DT Urine 04/25/2023 9:15 AM CDT 04/25/2023 9:53 AM CDT Bravo Petty, B.Ch. LAB URINE OR DERABLES Performing Organization Address City/[facility] Co de Phone Number [facility] [place] [address] [place], [place] [phone] [place] [address] 200 [place] [address] * Osmolality, Urine (04/25/2023 9:15 AM CDT) Osmolality, U 715 150 - 1150 mOsm/kg 04/25/2023 10:50 AM CDT DT Urine 04/25/2023 9:15 AM CDT 04/25/2023 9:53 AM CDT Bravo Petty, B.Ch. LAB URINE OR DERABLES Performing Organization Address City/[facility] Co de Phone Number [facility] [place] [address] [place], [place] [phone] [place] [address] 200 [place] [address] * Microscopic Automated (04/25/2023 9:15 AM CDT) Microscopy Normal 04/25/2023 10:19 AM CDT DT Urine 04/25/2023 9:15 AM CDT 04/25/2023 9:53 AM CDT Bravo Petty, B.Ch. LAB URINE OR DERABLES Performing Organization Address City/[facility] Co de Phone Number [facility] [place] [address] [place] [address], [address] [address] * Urinalysis with Microscopic: Urine, Midstream (04/25/2023 9:15 AM CDT) Source Urine, Urine, Midstream 04/25/2023 9:52 AM CDT DTL Color, U Yellow 04/25/2023 9:53 AM CDT DTL Clarity, U Clear 04/25/2023 9:53 AM CDT DTL Protein, U 11 <26 mg/dL 04/25/2023 10:38 AM CDT DTL Protein/Osmol ality 0.15 <0.42 ratio 04/25/2023 10:50 AM CDT DTL Predicted 24 HR Protein, U 158 <229 mg/24 h 04/25/2023 10:50 AM CDT DTL Predicted Range 50-498 mg/24 h 04/25/2023 10:50 AM CDT DTL Urine (Urine, Midstream) 04/25/2023 9:15 AM CDT 04/25/2023 9:52 AM CDT Bravo Petty, B.Ch. LAB URINE OR DERABLES Performing Organization Address City/[facility] Co de Phone Number [facility] [place] 200 [place] [address], [address] [address] documented in this encounter Visit Diagnoses Diagnosis Benign Prostatic Hyperplasia Hypertrophy With Obstruction documented in this encounter Additional Health Concerns Assessment Noted Time PHQ-9 Depression Total Score: 1 07/16/20 13 2:30 PM FLATWARE MAKER documented as of this encounter Care Teams Stoker Erector And Servicer Relationship Specialty Start Date End Date Elsewhere, Pcp PCP - General Internal Medicine 04/22/23 documented as of this encounter
[2023-09-12 12:29] LABS: Lactate* 2.3 mmol/L (0.5-1.9)
[2023-09-12 12:31] LABS: Basophils Percent Auto 0.1 % (0.0-3.0); Eosinophils Percent Auto 0.2 % (0.0-7.0); Hematocrit 49.1 % (37.0-53.0); Hemoglobin* 15.9 gm/dL (13.5-17.5); Immature Granulocytes Pct Auto 0.8 %; Lymphocytes Percent Auto 13.4 % (20-44); Mean Corpuscular HGB Conc 32 gm/dL (32-36); Mean Corpuscular Hemoglobin 31 pg (26-34); Mean Corpuscular Volume 96 fL (80-100); Monocytes Percent Auto 3.7 % (0.0-11.0); Neutrophils Percent Auto 81.8 % (42.0-72.0); Platelet Count* 540 K/uL (140-440); RDW Coefficient of Variation % 12.2 % (11.5-15.5); Red Blood Count 5.12 m/uL (4.30-5.90); Slide Review Reflex No; White Blood Count* 13.99 K/uL (4.50-11.00)
[2023-09-12 12:41] LABS: Appearance Urine Clear (Clear); Bilirubin Urine Negative (Negative); Blood Urine Negative (Negative); Color Urine Yellow (Yellow); Glucose Urine Negative (Negative); Ketones Urine Negative (Negative); Leukocyte Esterase Urine Negative (Negative); Nitrite Urine Negative (Negative); Protein Urine Negative (Negative); Specific Gravity Urine 1.015 (1.000-1.030); Urobilinogen Urine 0.2 (0.2-1.0); pH Urine 6.5 (5.0-8.5)
[2023-09-12 12:49] LABS: Albumin* 4.2 g/dL (3.3-5.0); Chloride* 102 mmol/L (96-114); Potassium* 4.3 mmol/L (3.6-5.1); Sodium* 139 mmol/L (135-149)
[2023-09-12 12:51] LABS: Creatinine* 1.4 mg/dL (0.5-1.5); Est. Creatinine Clearance* 45.18; Estimated Glomerular Filt Rate 50 ml/min
[2023-09-12 12:51] LABS: RBC Urine 0-2 (0-2); WBC Urine 0-2 (0-5)
[2023-09-12 12:52] LABS: Alanine Aminotransferase* 71 U/L (4-50); Alkaline Phosphatase* 71 U/L (40-150); Anion Gap 6 mEq/L (7-15); Aspartate Amino Transferase* 33 U/L (12-35); Bilirubin Total* 0.8 mg/dL (0.1-1.5); Blood Urea Nitrogen* 32 mg/dL (7-30); Carbon Dioxide* 31 mmol/L (20-32); Glucose* 102 mg/dL (60-115); Lipase* 141 U/L (23-300); Total Protein* 7.3 g/dL (6.0-8.3)
[2023-09-12 12:53] LABS: Calcium* 9.5 mg/dL (8.4-10.6)
[2023-09-12 13:07] LABS: Troponin I* < 0.01 ng/mL (0.01-0.04)
--- NOTE | 2023-09-12 13:17 | CRLHL7_ITS ---
For Patients: As a result of the Century Cures Act, medical imaging exams and procedure reports are released immediately into your electronic medical record. You may view this report before your referring provider. If you have questions, please contact your health care provider. INDICATION: Fatigue, atrial flutter, weakness. TECHNIQUE: CT chest with 98 mL Isovue 370 IV contrast. COMPARISON: None. FINDINGS: Heart and vasculature: No cardiomegaly, no significant pericardial effusion. Within limitations of motion artifact, no filling defects identified within the main, lobar, and contrast opacified portions of the segmental pulmonary arteries. Atherosclerotic coronary artery calcifications. Lungs and pleura: No evidence of pulmonary infarct. Scattered calcified granulomas. Thyroid and lower neck: No suspicious thyroid nodule. Mediastinum/arnel: No lymphadenopathy. Chest wall: No axillary lymphadenopathy. Upper abdomen: See separate report of same day CT abdomen/pelvis. Bones: Multilevel degenerative changes of the spine. No suspicious/aggressive focal osseous lesion. IMPRESSION: No evidence of acute pulmonary embolus, within limitations of motion artifact. Please note that all CT scans at this facility use dose modulation, iterative reconstruction, and/or weight-based dosing when appropriate to reduce radiation dose to as low as reasonably achievable. Dictated by Linsey Encinas MD @ 09/12/2023 2:50:27 PM (Electronically Signed)
[2023-09-12 13:39] LABS: Erythrocyte SedimentationRate* 6 mm/hr (2-15)
[2023-09-12 14:19] LABS: NT Pro B Type NatriureticPept* 1010 pg/mL
[2023-09-12 15:43] VITALS: PULSE 80; O2SAT 95
== END 2023-09-12 16:27 | disposition home or self-care (01) ==
PROVIDERS: Emergency Provider Emergency Medicine; PCP Family Medicine
DX: I48.4 Atypical atrial flutter (principal)
CPT/HCPCS: 36415; 70450; 71275; 74177; 80053; 81001; 83605; 83690; 83880; 84484; 85025; 85651; 87040; 93005; 99284; 99285; Q9967

== ENCOUNTER 2023-10-31 11:00 | Outpatient (CLI) | payer MEDICARE, BC, SELFPAY | END 2023-10-31 11:01 | disposition home or self-care (01) | LOC: LKVREF 11:01 | PROVIDERS: PCP Family Medicine; Visit Provider Family Medicine | DX: E13.9 Other specified diabetes mellitus without complications (principal); I10 Essential (primary) hypertension; I48.92 Unspecified atrial flutter | CPT/HCPCS: 80053 ==

== ENCOUNTER 2023-11-07 13:07 | Outpatient (CLI) | payer MEDICARE, BC, SELFPAY | END 2023-11-07 13:08 | disposition home or self-care (01) | LOC: LKVREF 13:22 | PROVIDERS: PCP Family Medicine; Visit Provider Family Medicine | DX: D64.9 Anemia, unspecified (principal); E78.00 Pure hypercholesterolemia, unspecified; I10 Essential (primary) hypertension | CPT/HCPCS: 80053 ==

== ENCOUNTER 2023-11-21 11:35 | Outpatient (CLI) | payer MEDICARE, BC, SELFPAY | END 2023-11-21 11:36 | disposition home or self-care (01) | PROVIDERS: PCP Family Medicine; Visit Provider Family Medicine | DX: E11.40 Type 2 diabetes mellitus with diabetic neuropathy, unspecified (principal); E13.9 Other specified diabetes mellitus without complications; I10 Essential (primary) hypertension; I48.92 Unspecified atrial flutter; Z79.899 Other long term (current) drug therapy | CPT/HCPCS: 80053 ==

== ENCOUNTER 2023-12-04 19:14 | Outpatient (CLI) | payer MEDICARE, BC, SELFPAY ==
--- NOTE | 2023-12-18 12:09 | W.PM.SLEEP ---
Sleep Study Details Details Interpreting Provider: Jonelle Date of Sleep Study: 12/04/23 Sleep Study Details: STUDY TYPE:? Home unattended ? BMI:? not recorded ORDERING PROVIDER:? Jackie INDICATION:? Concerns about sleep apnea ? SLEEP SUMMARY:? 499.5 minutes monitored RESPIRATORY SUMMARY:? AHI 21.9 Low oxygen 82 4.1% of study oxygen less than 90% Snoring 19.3% PERIODIC LIMB MOVEMENTS OF SLEEP:? Not recorded during home study CARDIAC:? Range 56-166, mean 69.3 IMPRESSION:? Tachycardia noted during study further cardiac evaluation may be indicated. Moderate obstructive sleep apnea RECOMMENDATION: Treatment options include AutoSet CPAP versus in-lab titration.
== END 2023-12-04 19:15 | disposition home or self-care (01) ==
LOC: SLEEP 19:16
PROVIDERS: PCP Family Medicine; Visit Provider Family Medicine
DX: G47.33 Obstructive sleep apnea (adult) (pediatric) (principal)
CPT/HCPCS: 95806

== ENCOUNTER 2024-01-06 09:16 | Outpatient (CLI) | payer MEDICARE, BC, SELFPAY ==
--- OUTSIDE RECORDS SUMMARY | 2024-01-08 07:14 | XMS_ITS | Encounter Summary ---
Author Name Unknown Organization [facility] Address [address] [facility] [place] [address] Care Team Providers Care Post Anesthesia Nurse Name Role Phone Nicanor Klein MD Unavailable Nicanor Klein MD Unavailable Nicanor Klein MD Unavailable Merrill Mejia MD Primary Care Provider [phone] Encounter Details Date Type Department Care Team (Late st Contact Info) Description 10/30/2023 Medical Correspondence [facility] [address] [place] [address] Scan, Non-Provider Social History Tobacco Use Types Packs/Day Years Used Date Smoking Tobacco: Never Alcohol Use Standard Drinks/Week Comments Yes 0 (1 standard drink = 0.6 oz pur e alcohol) Adolescent Education Answer Date Record ed Getting School Help Needed Not on file 06/09 Sex and Gender Information Value Date Recorded Sex Assigned at Male 09/28/2023 2:19 PM HAM BONER Gender Identity Male 09/28/2023 2:19 PM HAM BONER Sexual Orientation Straight 09/28/2023 2: 19 PM HAM BONER documented as of this encounter Plan of Treatment Upcoming Encounters Date Type Department Care Team (Late st Contact Info) Description 05/14/2024 12:30 PM CDT Office Visit [facility] [address] [place] [phone] Gail Post MD [address] [phone] Anushka Carrasquillo MD [address] [place] [address] [place], [place] [address] documented as of this encounter Visit Diagnoses Not on filedocumented in this encounter Care Teams Post Anesthesia Nurse Relationship Specialty Start Date End Date Merrill Mejia MD [address] [place] [phone] PCP - General Family Medicine 10/25/23 Nicanor Klein MD [address] [place] [address] Cardiovascular Disease 09/16/23 Nicanor Klein MD [address] [place] [phone] Cardiovascular Disease 09/16/23 Nicanor Klein MD [address] [place] [address] Assigned Heart and Vascular Provider 09/26/23 documented as of this encounter
--- OUTSIDE RECORDS SUMMARY | 2024-01-08 07:14 | XMS_ITS | Referral Summary ---
Author Name Unknown Organization [place] Address [address] [facility] [address] Care Team Providers Care Flight Line Service Attendant Name Role Phone Shaneka Patel MD Unavailable Shaneka Patel MD Unavailable Shaneka Patel MD Unavailable Merrill Mejia MD Primary Care Provider [phone] Encounters Date Type Department Care Team Description 11/01/2023 Transcribe Orders GENERIC EXTERNAL DATA DEPARTMENT Provider, Generic External Data Other specified diabetes mellitus without complications (H) (Primary Dx); Type 2 diabetes mellitus without complications (H); Type 2 diabetes mellitus with diabetic neuropathy, unspecified (H) 10/30/[address] [facility] [address] [facility] [address] Scan, Non-Provider 10/16/2023 8:27 AM LINE DECORATOR Anesthesia Event [facility] [address] [place] [phone] Jez Su MD 10/16/2023 8:20 AM LINE DECORATOR - 10/16/2023 8:35 AM LINE DECORATOR Surgery [facility] [address] [place] [phone] Carter Ellis MD Anesthesia cardioversion 10/16/2023 11:59 PM LINE DECORATOR Anesthesia Event [facility] [address] [place] [phone] Jez Su MD 10/14/2023 12:37 PM LINE DECORATOR - 10/16/2023 4:33 PM LINE DECORATOR Hospital Encounter [facility] Extended Recovery and Short Stay [address] [facility] [place] [phone] Ilan Alves MD Nistor, Doina Simona, MD Type 2 diabetes mellitus with stage 3b chronic kidney disease, with long-term current use of insulin (H) (Primary Dx); Hypoglycemia; Community acquired pneumonia, unspecified laterality; Episode of confusion; Chest pain, unspecified type; Weakness; History of atrial fibrillation; Calcification of coronary artery Discharge Disposition: Home-Health Care Svc 10/15/2023 10:30 AM LINE DECORATOR - 10/15/2023 10:45 AM LINE DECORATOR Surgery [facility] [address] [place] [phone] GENERIC ANESTHESIA PROVIDER cardioversion 10/14/2023 Travel 10/14/2023 Telephone [facility] [phone] [place] [phone] Shaneka Patel MD 10/14/2023 Telephone [facility] [phone] [place] [phone] Lashell Osborn RN 10/12/2023 Medical Correspondence [facility] [address] [address] Scan, Non-Provider [facility] from Last 3 Months Allergies Active Allergy Reactions Criticality Noted Date Comments Animal Dander Unknown,Other (See Comments) 01/31 sneezing No Known Drug Allergy 08/01/2004 Medications Medication Sig Dispensed Refills Start Date End Date Status gabapentin (NEURONTIN) 100 MG capsule Take 100 mg by mouth at bedtime Active lidocaine (LIDODERM) 5 % patch Place 1 patch onto the skin daily as needed for moderate pain (spasms) Applies to chest/shoulder/nec k, also to feet Active losartan (COZAAR) 100 MG tablet Take 100 mg by mouth daily Active metFORMIN (GLUCOPHAGE XR) 500 MG 24 hr tablet Take 500 mg by mouth every morning 06/06/2023 Active mirabegron (MYRBETRIQ) 50 MG 24 hr tablet Take 50 mg by mouth daily 05/07/2023 Active nitroGLYcerin (NITROSTAT) 0.4 MG sublingual tabletIndications:At [facility] chest pain For chest pain place 1 tablet under the tongue every 5 minutes for 3 doses. If symptoms persist 5 minutes after 1st dose call 911. 20 tablet 3 09/23/2023 Active rivaroxaban ANTICOAGULANT (XARELTO) 20 MG TABS tabletIndications:At [facility] flutter, unspecified type (H),Paroxysmal atrial flutter (H) Take 1 tablet (20 mg) by mouth daily (with dinner) 90 tablet 3 09/30/2023 Active eszopiclone (LUNESTA) 2 MG tablet Take 2 mg by mouth nightly as needed for sleep Active oxyCODONE (ROXICODONE) 5 MG tablet Take 5 mg by mouth every 6 hours as needed for severe pain Active multivitamin (CENTRUM SILVER) tablet Take 1 tablet by mouth daily Active magnesium oxide (MAG-OX) 400 MG tablet Take 400 mg by mouth daily Active Vitamin D3 (VITAMIN D, CHOLECALCIFEROL,) 25 mcg (1000 units) tablet Take 25 mcg by mouth daily Active Multiple Vitamins-Minerals (ICAPS AREDS 2 PO) Take 1 tablet by mouth 2 times daily Active rosuvastatin (CRESTOR) 40 MG tabletIndications:Ca lcification of coronary artery Take 1 tablet (40 mg) by mouth at bedtime 10/16/2023 Active metoprolol succinate ER (TOPROL XL) 25 MG 24 hr tabletIndications:Hi story of atrial fibrillation Take 1 tablet (25 mg) by mouth daily 30 tablet 10/17/2023 Active insulin glargine (LANTUS PEN) 100 UNIT/ML penIndications:Type 2 diabetes mellitus with stage 3b chronic kidney disease, with long-term current use of insulin (H) Inject 30 Units Subcutaneous at bedtime 15 mL 10/16/2023 Active insulin lispro (HUMALOG KWIKPEN) 100 UNIT/ML (1 unit dial) KWIKPENIndications:T ype 2 diabetes mellitus with stage 3b chronic kidney disease, with long-term current use of insulin (H) Inject 1-20 Units Subcutaneous 3 times daily (before meals) 15 mL 10/16/2023 Active Active Problems Problem Noted Date Diagnosed Date Hypoglycemia 10/14/2023 History of atrial fibrillation 10/14/2023 Episode of confusion 10/14/2023 Chest pain, unspecified type 10/14/2023 Community acquired pneumonia, unspecified latera lity 10/14/2023 Weakness 08/23/2015 Essential hypertension 08/01/2004 Overview: Problem [...] Sex Assigned at Male 09/28/2023 2:19 PM LINE DECORATOR Gender Identity Male 09/28/2023 2:19 PM LINE DECORATOR Sexual Orientation Straight 09/28/2023 2: 19 PM LINE DECORATOR Last Filed Vital Signs Vital Sign Reading Time Taken Comments Blood Pressure 118/73 10/16/2023 10:04 AM LINE DECORATOR Pulse 87 10/16/2023 10:04 AM LINE DECORATOR Temperature 36.3 ??C (97.4 ??F) 10/16/2023 1 0:04 AM LINE DECORATOR Respiratory Rate 18 10/16/2023 10:0 4 AM LINE DECORATOR Oxygen Saturation 98% 10/16/2023 10: 04 AM LINE DECORATOR Inhaled Oxygen Concentration - - Weight 95.7 kg (210 lb 14.4 oz) 10/16/2023 3:58 AM LINE DECORATOR Height 185.4 cm (6' 1) 10/14/2023 5:59 PM LINE DECORATOR Body Mass Index 27.82 10/14/2023 5:59 PM LINE DECORATOR Plan of Treatment Upcoming Encounters Date Type Department Care Team (Late st Contact Info) Description 05/14/2024 12:30 PM CDT Office Visit [facility] [address] [place] [phone] Gail Post MD [address] [place] [address] Anushka Carrasquillo MD [address] [place], [place] [phone] Procedures Procedure Name Priority Date/Time Associated Diagnosis Comments HOLTER MONITOR 48 HOUR APPLICATION SCAN ANALYSIS AND PROVIDER INTERPRETATION Routine 10/16/2023 7:05 PM LINE DECORATOR GLUCOSE BY METER Routine 10/16/2023 12:0 6 PM LINE DECORATOR HEPATITIS A ANTIBODY IGM Routine 10/16/2023 10:22 AM LINE DECORATOR EKG 12-LEAD, TRACING ONLY Routine 10/16/2023 10:04 AM LINE DECORATOR US ABDOMEN LIMITED Routine 10/16/2023 9: 36 AM LINE DECORATOR CARDIOVERSION EXTERNAL Routine 8:35 AM LINE DECORATOR ANESTHESIA, FOR CARDIOVERSION 10/16/2023 8:20 AM LINE DECORATOR Chronic atrial fibrillation (H) GLUCOSE BY METER Routine 10/16/2023 7:29 AM LINE DECORATOR EKG 12-LEAD, TRACING ONLY STAT 10/16/2023 7:11 AM LINE DECORATOR HEPATITIS C ANTIBODY Add-On 10/16/2023 6:08 AM LINE DECORATOR HEPATITIS B SURFACE ANTIGEN Add-On 10/16/2023 6:08 AM LINE DECORATOR MAGNESIUM STAT 10/16/2023 6:08 AM LINE DECORATOR INR STAT 10/16/2023 6:08 AM LINE DECORATOR COMPREHENSIVE METABOLIC PANEL STAT 10/16/2023 6:08 AM LINE DECORATOR CBC WITH PLATELETS Routine 10/16/2023 6: 08 AM LINE DECORATOR GLUCOSE BY METER Routine 10/16/2023 1:10 AM LINE DECORATOR GLUCOSE BY METER Routine 10/15/2023 9:26 PM LINE DECORATOR GLUCOSE BY METER Routine 10/15/2023 5:29 PM LINE DECORATOR GLUCOSE BY METER Routine 10/15/2023 12:0 1 PM LINE DECORATOR XR CHEST 2 VIEWS Routine 10/15/2023 8:09 AM LINE DECORATOR GLUCOSE BY METER Routine 10/15/2023 7:39 AM LINE DECORATOR LIPID REFLEX TO DIRECT LDL PANEL Routine 10/15/2023 7:15 AM LINE DECORATOR TROPONIN T, HIGH SENSITIVITY Routine 10/15/2023 7:15 AM LINE DECORATOR CBC WITH PLATELETS Routine 10/15/2023 7: 15 AM LINE DECORATOR COMPREHENSIVE METABOLIC PANEL Routine 10/15/2023 7:15 AM LINE DECORATOR GLUCOSE BY METER Routine 10/15/2023 2:13 AM LINE DECORATOR GLUCOSE BY METER Routine 10/14/2023 10:1 1 PM LINE DECORATOR LACTIC ACID WHOLE BLOOD STAT 10/14/2023 6:53 PM LINE DECORATOR GLUCOSE BY METER Routine 10/14/2023 5:42 PM LINE DECORATOR INFLUENZA A/B, RSV, & SARS-COV2 PCR STAT 10/14/2023 4:40 PM LINE DECORATOR TROPONIN T, HIGH SENSITIVITY STAT 10/14/2023 2:57 PM LINE DECORATOR LACTIC ACID WHOLE BLOOD STAT 10/14/2023 2:57 PM LINE DECORATOR BLOOD CULTURE STAT 10/14/2023 2:28 PM LINE DECORATOR BLOOD CULTURE STAT 10/14/2023 2:20 PM LINE DECORATOR XR CHEST 2 VIEWS STAT 10/14/2023 1:12 PM LINE DECORATOR CBC WITH PLATELETS & DIFFERENTIAL STAT 10/14/2023 12:53 PM LINE DECORATOR HEMOGLOBIN A1C Add-On 10/14/2023 12:53 PM LINE DECORATOR MAGNESIUM Add-On 10/14/2023 12:53 PM LINE DECORATOR PROCALCITONIN Add-On 10/14/2023 12:53 PM LINE DECORATOR EXTRA BLUE TOP TUBE STAT 10/14/2023 1 2:53 PM LINE DECORATOR CBC WITH PLATELETS AND DIFFERENTIAL STAT 10/14/2023 12:53 PM LINE DECORATOR EXTRA TUBE STAT 10/14/2023 12:53 PM LINE DECORATOR TROPONIN T, HIGH SENSITIVITY STAT 10/14/2023 12:53 PM LINE DECORATOR LIPASE STAT 10/14/2023 12:53 PM LINE DECORATOR COMPREHENSIVE METABOLIC PANEL STAT 10/14/2023 12:53 PM LINE DECORATOR EKG 12-LEAD, TRACING ONLY STAT 10/14/2023 12:41 PM LINE DECORATOR from Last 3 Months Results * HOLTER MONITOR 48 HOUR APPLICATION SCAN ANALYSIS AND PROVIDER INTERPRETATION (10/16/2023 7:05 PM LINE DECORATOR) Anatomical Region Laterality Modality Other 10/16/2023 4:17 PM LINE DECORATOR 10/21/2023 6:00 PM LINE DECORATOR Narrative 10/21/2023 6:00 PM LINE DECORATOR 1. Ilan De León was monitored for 48 hours. Quality of the tracing was good. Predominant rhythm was Atrial fibrillation ??(61% of the recording). Average HR was 112 bpm, maximum HR was 163 bpm at 12:42 PM (Day 1), minimum HR was 74 bpm at 6:18 AM ??(Day 1). IL interval measured 0.17 seconds, QRS duration 0.09 seconds, QT interval 0.297-0.336 seconds. There were zero pauses over 2.0 seconds. 2. There were 7,774 ventricular ectopic beats (3% [place]), 7,187 of these were isolated PVCs. There were 269 couplets and 15 ??triplets. There was one 4 beat ventricular run with a rate of 176 bpm at 6:15 PM (Day 2). 3. There were 8,313 supraventricular ectopic beats (3% [place]), 6,963 of these were isolated PACs. There were 624 couplets ??and 17 triplets. There were 6 supraventricular runs. The longest run was 27 beats with a rate of 120 bpm at 1:25 AM (Day 1). ??The fastest run was 4 beats long with a rate of 146 bpm at 10:27 AM (Day 1). 4. The patient event button was not pressed and no symptoms were noted. 10/19/2023 Confirmed by SHANEKA PATEL ([id number]) on 10/21/2023 6:00:23 PM Procedure Note Shaneka Patel MD - 10/21/2023 1. Ilan De León was monitored for 48 hours. Quality of the tracingwas good. Predominant rhythm was Atrial fibrillation (61% of therecording). Average HR was 112 bpm, maximum HR was 163 bpm at 12:42 PM (Day 1),minimum HR was 74 bpm at 6:18 AM (Day 1). IL interval measured 0.17seconds, QRS duration 0.09 seconds, QT interval 0.297-0.336 seconds. There were zero pauses over 2.0 seconds. 2. There were 7,774 ventricular ectopic beats (3% [place]), 7,187 of thesewere isolated PVCs. There were 269 couplets and 15 triplets. There wasone 4 beat ventricular run with a rate of 176 bpm at 6:15 PM (Day 2). 3. There were 8,313 supraventricular ectopic beats (3% [place]), 6,963 ofthese were isolated PACs. There were 624 couplets and 17 triplets.There were 6 supraventricular runs. The longest run was 27 beats with a rate of120 bpm at 1:25 AM (Day 1). The fastest run was 4 beats long with a rateof 146 bpm at 10:27 AM (Day 1). 4. The patient event button was not pressed and no symptoms were noted. 10/19/2023 Confirmed by SHANEKA PATEL ([id number]) on 10/21/2023 6:00:23 PM Merlyn Lyon [facility] ORDERABLES * (ABNORMAL) Glucose by meter (10/16/2023 12:06 PM LINE DECORATOR) Only the most recent of10 resultswithin the time period is included. [facility] GLUCOSE BY METER POCT 154(H) 70 - 99 mg/dL 10/16/2023 12:16 PM [facility] POC Blood, Capillary BLOOD SPECIMEN / Unknown 10/16/2023 12:06 PM LINE DECORATOR 10/16/2023 12:16 PM LINE DECORATOR Michelle TONEY - [facility]ORAT[facility] POC [facility] [address] 1[address] floor, [address] [place] [address], [place] [phone] * Hepatitis A antibody IgM (10/16/2023 10:22 AM LINE DECORATOR) Hepatitis A Antibody IgM Nonreactive Nonreactive 10/16/2023 3:37 PM LINE DECORATOR [facility] Comment:Nonreactive results indicate either inadequate or delayed anti-HAV IgM response after known exposure to HAV or absence of acute or recent hepatitis A. Blood STRUCTURE OF RIGHT UPPER LIMB / Unknown Venipuncture / Unknown 10/16/2023 10:22 AM LINE DECORATOR 10/16/2023 10:27 AM LINE DECORATOR Gail Post MD LAB - BLOOD ORDERABL ES [facility] [place] [facility] [address] [facility], [address] [phone], [facility] [phone] * EKG 12-lead, tracing only (10/16/2023 10:04 AM LINE DECORATOR) Only the most recent of3 resultswithin the time period is included. Systolic Blood Pressure mmHg RADIOLOGY RESULTS Diastolic Blood Pressure mmHg RADIOLOGY RESULTS Ventricular Rate 91 BPM RAD IOLOGY RESULTS Atrial Rate 91 BPM RADIOLOG Y RESULTS IL Interval 182 ms RADIOLOG Y RESULTS QRS Duration 80 ms RADIOLO GY RESULTS QT 330 ms RADIOLOGY RESULTS QTc 405 ms RADIOLOGY RESULTS P [place] 74 degrees RADIOLOGY RESULTS R AXIS 19 degrees RADIOLOGY RESULTS T [place] 213 degrees RADIOLOGY RESULTS Interpretation ECG Sinus rhythm with occasional Premature ventricular complexes and Premature atrial complexes Cannot rule out Anterior infarct , age undetermined Abnormal ECG When compared with ECG of 16-OCT-2023 07:11, (unconfirmed) Sinus rhythm has replaced Atrial fibrillation Confirmed by MD ISAAC, JULIEN ([id number]), make up editor Cole Polo ([id number]) on 10/18/2023 7:58:52 AM RADIOLOGY RESULTS 10/16/2023 10:0 4 AM LINE DECORATOR 10/18/2023 7:58 AM LINE DECORATOR Carter Ellis MD ECG ORDERABLES RADIOLOGY RESULTS * US Abdomen Limited (10/16/2023 9:36 AM LINE DECORATOR) Anatomical Region Laterality Modality Abdomen/Pelvis Ultrasound Impressions 10/16/2023 10:25 AM LINE DECORATOR IMPRESSION: 1. ??Hepatic steatosis, similar to previous. TRAVON HARRIS MD Narrative 10/16/2023 10:25 AM LINE DECORATOR US ABDOMEN LIMITED 10/16/2023 9:36 AM CLINICAL HISTORY: elevated lft TECHNIQUE: Limited abdominal ultrasound. COMPARISON: 08/23/2015 FINDINGS: GALLBLADDER: Surgically absent. BILE DUCTS: There is no biliary dilatation. The common duct measures 4mm. LIVER: Diffuse hepatic steatosis. RIGHT KIDNEY: No hydronephrosis. PANCREAS: The visualized portions of the pancreas are normal. No ascites. Procedure Note Travon Harris MD - 10/16/2023 US ABDOMEN LIMITED 10/16/2023 9:36 AM CLINICAL HISTORY: elevated lft TECHNIQUE: Limited abdominal ultrasound. COMPARISON: 08/23/2015 FINDINGS: GALLBLADDER: Surgically absent. BILE DUCTS: There is no biliary dilatation. The common duct measures 4mm. LIVER: Diffuse hepatic steatosis. RIGHT KIDNEY: No hydronephrosis. PANCREAS: The visualized portions of the pancreas are normal. No ascites. IMPRESSION: 1. Hepatic steatosis, similar to previous. TRAVON HARRIS MD Gail Post MD IMG US ORDERABLES * CARDIOVERSION EXTERNAL (10/16/2023 8:35 AM LINE DECORATOR) Anatomical Region Laterality Modality Other Narrative 10/16/2023 8:35 AM LINE DECORATOR Carter Ellis MD ? 10/16/2023 ??9:05 AM [facility] Procedure: EP Cardioversion External Date/Time: 10/16/2023 8:35 AM Performed by: Carter Ellis MD Authorized by: Merlyn Lyon CNP ?? UNIVERSAL PROTOCOL Site Marked: Yes Prior Images Obtained and Reviewed: ??Yes Required items: Required blood products, implants, devices and special equipment available ?? Patient identity confirmed: ??Verbally with patient Patient was reevaluated immediately before administering moderate or deep sedation or anesthesia Confirmation Checklist: ??Patient's identity using two indicators Time out: Immediately prior to the procedure a time out was called ?? [place] Protocol: the Joint [employer] [place] Protocol was followed ?? Preparation: Patient was prepped and draped in usual sterile fashion ?? ANESTHESIA Anesthesia was administered and monitored by anesthesiology. ??See anesthesia documentation for details. SEDATION Patient Sedated: Yes ?? Vital signs: Vital signs monitored during sedation ?? PROCEDURE DETAILS Cardioversion basis: elective Indications: failure of anti-arrhythmic medications Pre-procedure rhythm: atrial fibrillation Patient position: patient was placed in a supine position Chest area: chest area exposed Electrodes: pads Electrodes placed: anterior-posterior Number of attempts: 1 Details of Attempts: ??DC Cardioversion Procedure Note: Informed consent obtained. Pads placed in AP position. Anesthesia used, please see their documentation. Synchronized, biphasic 120J shock x 1 delivered and successful in converting atrial fibrillation to normal sinus rhythm without bradycardia or pauses. No apparent complications. Merlyn Lyon CNP CV ELECTROPHYSIOLOG Y ORDERABLES * (ABNORMAL) INR (10/16/2023 6:08 AM LINE DECORATOR) INR 3.26(H) 0.85 - 1.15 10/16/2023 6:45 AM [facility] Blood STRUCTURE OF RIGHT HAND / Unknown Venipuncture / Unknown 10/16/2023 6:08 AM LINE DECORATOR 10/16/2023 6:16 AM LINE DECORATOR Merlyn Lyon CNP LAB - BLOOD ORDERAB LES Performing Organization Address City/[facility]/ZIP Co de Phone Number [facility] [address], [address] [place] [address], [facility] [phone] * Magnesium (10/16/2023 6:08 AM LINE DECORATOR) Only the most recent of2 resultswithin the time period is included. Magnesium 1.9 1.7 - 2.3 mg/dL 10/16/2023 6:42 AM [facility] Blood STRUCTURE OF RIGHT HAND / Unknown Venipuncture / Unknown 10/16/2023 6:08 AM LINE DECORATOR 10/16/2023 6:16 AM LINE DECORATOR Merlyn Lyon CNP LAB - BLOOD ORDERAB LES [facility] [address] floor, [address] [place] [address], [facility] [phone] * Hepatitis C antibody (10/16/2023 6:08 AM LINE DECORATOR) Hepatitis C Antibody Nonreactive Nonreactive 10/16/2023 3:31 PM LINE DECORATOR [facility] Comment:A nonreactive screen ing test result does not exclude the possibility of exposure to or infection with HCV. Nonreactive screening test results in individuals with prior exposure to HCV may be due to antibody levels below the limit of detection of this assay or lack of reactivity to the HCV antigens used in this assay. Patients with recent HCV infections (<3 months from time of exposure) may have false- negative HCV antibody results due to the time needed for seroconversion (average of 8 to 9 weeks). Blood STRUCTURE OF RIGHT HAND / Unknown Venipuncture / Unknown 10/16/2023 6:08 AM LINE DECORATOR 10/16/2023 6:16 AM LINE DECORATOR Gail Post MD LAB - BLOOD ORDERABL ES LABORATORY [facility] [place] [facility] [address] [facility], [address] [phone], [facility] [phone] * Hepatitis B surface antigen (10/16/2023 6:08 AM LINE DECORATOR) Hepatitis B Surface Antigen Nonreactive Nonreactive 10/16/2023 3:31 PM LINE DECORATOR [facility] Blood STRUCTURE OF RIGHT HAND / Unknown Venipuncture / Unknown 10/16/2023 6:08 AM LINE DECORATOR 10/16/2023 6:16 AM LINE DECORATOR Gail Post MD LAB - BLOOD ORDERABL ES LABORATORY [facility] [place] [facility] [address] [facility], [address] [phone], [facility] [phone] * (ABNORMAL) Comprehensive metabolic panel (10/16/2023 6:08 AM LINE DECORATOR) Only the most recent of3 resultswithin the time period is included. [facility] Sodium 141 135 - 145 mmol/L 10/16/2023 6:42 AM [facility] Comment:Reference intervals for this test were updated on 05/28/2023 to more accurately reflect our healthy population. There may be differences in the flagging of prior results with similar values performed with this method. Interpretation of those prior results can be made in the context of the updated reference intervals. Potassium 3.9 3.4 - 5.3 mmol/L 10/16/2023 6:42 AM [facility] Carbon Dioxide (CO2) 27 22 - 29 mmol/L 10/16/2023 6:42 AM [facility] Anion Gap 11 7 - 15 mmol/L 10/16/2023 6:42 AM [facility] Urea Nitrogen 27.2(H) 8.0 - 23.0 mg/dL 10/16/2023 6:42 AM [facility] Creatinine 1.38(H) 0.67 - 1.17 mg/dL 10/16/2023 6:42 AM [facility] GFR Estimate 51(L) >60 mL/min/1. 73m2 10/16/2023 6:42 AM [facility] Calcium 9.1 8.8 - 10.2 mg/dL 10/16/2023 6:42 AM [facility] Chloride 103 98 - 107 mmol/L 10/16/2023 6:42 AM [facility] Glucose 135(H) 70 - 99 mg/dL 10/16/2023 6:42 AM [facility] Alkaline Phosphatase 107 40 - 150 U/L 10/16/2023 6:42 AM [facility] Comment:Reference intervals for this test were updated on 07/16/2023 to more accurately reflect our healthy population. There may be differences in the flagging of prior results with similar values performed with this method. Interpretation of those prior results can be made in the context of the updated reference intervals. AST 193(H) 0 - 45 U/L 10/16/2023 6:42 AM [facility] Comment:Reference intervals for this test were updated on 02/11/2023 to more accurately reflect our healthy population. There may be differences in the flagging of prior results with similar values performed with this method. Interpretation of those prior results can be made in the context of the updated reference intervals. ALT 240(H) 0 - 70 U/L 10/16/2023 6:42 AM [facility] Comment:Reference intervals for this test were updated on 02/11/2023 to more accurately reflect our healthy population. There may be differences in the flagging of prior results with similar values performed with this method. Interpretation of those prior results can be made in the context of the updated reference intervals. Protein Total 6.4 6.4 - 8.3 g/dL 10/16/2023 6:42 AM [facility] Albumin 2.9(L) 3.5 - 5.2 g/dL 10/16/2023 6:42 AM [facility] Bilirubin Total 0.3 <=1.2 mg/dL 10/16/2023 6:42 AM [facility] Blood STRUCTURE OF RIGHT HAND / Unknown Venipuncture / Unknown 10/16/2023 6:08 AM LINE DECORATOR 10/16/2023 6:16 AM [facility] Bacilio Steele MD LAB - BLOOD OR DERABLES LABORATORY [facility] [address], [address] [place] [address], [facility] [phone] * (ABNORMAL) CBC with platelets (10/16/2023 6:08 AM [facility]) Only the most recent of2 resultswithin the time period is included. WBC Count 10.7 4.0 - 11.0 10e3/uL 10/16/2023 6:22 AM [facility] RBC Count 4.08(L) 4.40 - 5.90 10e6/uL 10/16/2023 6:22 AM [facility] Hemoglobin 12.6(L) 13.3 - 17.7 g/dL 10/16/2023 6:22 AM [facility] Hematocrit 38.5(L) 40.0 - 53.0 % 10/16/2023 6:22 AM [facility] MCV 94 78 - 100 fL 10/16/2023 6:22 AM [facility] MCH 30.9 26.5 - 33.0 pg 10/16/2023 6:22 AM [facility] MCHC 32.7 31.5 - 36.5 g/dL 10/16/2023 6:22 AM [facility] RDW 12.8 10.0 - 15.0 % 10/16/2023 6:22 AM [facility] Platelet Count 493(H) 150 - 450 10e3/uL 10/16/2023 6:22 AM [facility] Blood STRUCTURE OF RIGHT HAND / Unknown Venipuncture / Unknown 10/16/2023 6:08 AM LINE DECORATOR 10/16/2023 6:16 AM [facility] Bacilio Steele MD LAB - BLOOD OR DERABLES LABORATORY [facility] Acute [facility] Lab [address] floor, [address] [place] [address], [facility] [phone] * XR Chest 2 Views (10/15/2023 8:09 AM LINE DECORATOR) Only the most recent of2 resultswithin the time period is included. Anatomical Region Laterality Modality Chest Digital Radiogra phy Impressions 10/15/2023 9:13 AM LINE DECORATOR IMPRESSION: Stable cardiac silhouette which is partially obscured. Similar opacification of the left lung base which is favored secondary to a moderate-sized left pleural effusion with underlying consolidation not excluded. Similar calcified granuloma of the right lung base. No discernible pneumothorax. No acute displaced fracture. PRECIOUS YOON MD Narrative 10/15/2023 9:13 AM LINE DECORATOR CHEST TWO VIEWS 10/15/2023 8:09 AM HISTORY: follow up possible pneumonia COMPARISON: 10/14/2023. Procedure Note Precious Yoon MD - 10/15/2023 CHEST TWO VIEWS 10/15/2023 8:09 AM HISTORY: follow up possible pneumonia COMPARISON: 10/14/2023. IMPRESSION: Stable cardiac silhouette which is partially obscured. Similar opacification of the left lung base which is favored secondary to a moderate-sized left pleural effusion with underlying consolidation not excluded. Similar calcified granuloma of the right lung base. No discernible pneumothorax. No acute displaced fracture. PRECIOUS YOON MD Dulce Fisher PA-C IMG DIAGNOS TIC IMAGING ORDERABLES * (ABNORMAL) Troponin T, High Sensitivity (10/15/2023 7:15 AM LINE DECORATOR) Only the most recent of3 resultswithin the time period is included. Troponin T, High Sensitivity 30(H) <=22 ng/L 10/15/2023 8:11 AM LINE DECORATOR LABORATORY Comment: Either a High Sensitivity Troponin [...] outpatient provocative testing. Blood STRUCTURE OF RIGHT UPPER LIMB / Unknown Venipuncture / Unknown 10/15/2023 7:15 AM LINE DECORATOR 10/15/2023 7:39 AM LINE DECORATOR Dulce Fisher PA-C LAB - BLOOD ORDERABLES LABORATORY [facility] Acute Care Lab [address] 1[address] floor, [address] [place] [address], [facility] [phone] * (ABNORMAL) Lipid panel reflex to direct LDL (10/15/2023 7:15 AM LINE DECORATOR) Cholesterol 66 <200 mg/dL 10/15/2023 11:29 AM LINE DECORATOR [facility] Triglycerides 65 <150 mg/dL 10/15/2023 11:29 AM LINE DECORATOR [facility] Direct Measure HDL 26(L) >=40 mg/dL 2023 11:29 AM LINE DECORATOR [facility] LDL Cholesterol Calculated 27 <=100 mg/dL 10/15/2023 11:29 AM LINE DECORATOR [facility] Non HDL Cholesterol 40 <130 mg/dL 10/15/2023 11:29 AM LINE DECORATOR [facility] Patient Fasting > 8hrs? Yes 10/15/2023 11:29 AM LINE DECORATOR LABORATORY Blood STRUCTURE OF RIGHT UPPER LIMB / Unknown Venipuncture / Unknown 10/15/2023 7:15 AM LINE DECORATOR 10/15/2023 7:39 AM LINE DECORATOR Narrative [facility] - 10/15/2023 11:29 AM LINE DECORATOR Cholesterol Desirable: ??<200 mg/dL Triglycerides Normal: ??Less than 150 mg/dL Borderline High: ??150-199 mg/dL High: ??200-499 mg/dL Very High: ??Greater than or equal to 500 mg/dL Direct Measure HDL Female: ??Greater than or equal to 50 mg/dL Male: ??Greater than or equal to 40 mg/dL LDL Cholesterol Desirable: ??<100mg/dL Above Desirable: ??100-129 mg/dL Borderline High: ??130-159 mg/dL High: ??160-189 mg/dL Very High: ??>= 190 mg/dL Non HDL Cholesterol Desirable: ??130 mg/dL Above Desirable: ??130-159 mg/dL Borderline High: ??160-189 mg/dL High: ??190-219 mg/dL Very High: ??Greater than or equal to 220 mg/dL Dulce Fisher PA-C LAB - BLOOD ORDERABLES [facility] [place] [facility] Lab [address], [address] [place] [address], [place] [phone] LABORATORY [facility] [address], [address] [place] [address], [place] [phone] * Lactic acid whole blood (10/14/2023 6:53 PM LINE DECORATOR) Only the most recent of2 resultswithin the time period is included. Lactic Acid 1.4 0.7 - 2.0 mmol/L 10/14/2023 7:02 PM LINE DECORATOR LABORATORY Blood STRUCTURE OF RIGHT HAND / Unknown Venipuncture / Unknown 10/14/2023 6:53 PM LINE DECORATOR 10/14/2023 6:59 PM LINE DECORATOR Dulce Fisher PA-C LAB - BLOOD ORDERABLES LABORATORY [facility] Lab [address] 1[address] floor, [address] [place] [address], [facility] [phone] * Asymptomatic Influenza A/B, RSV, & SARS-CoV2 PCR (COVID-19) Nasopharyngeal (10/14/2023 4:40 PM LINE DECORATOR) Pathologist [facility] Influenza A PCR Negative Negative 10/14/2023 6:12 PM LINE DECORATOR LABORATORY Influenza B PCR Negative Negative 10/14/2023 6:12 PM LINE DECORATOR LABORATORY RSV PCR Negative Negative 10/14/2023 6:12 PM LINE DECORATOR LABORATORY SARS CoV2 PCR Negative Negative 10/14/2023 6:12 PM LINE DECORATOR LABORATORY Comment:NEGATIVE: SARS-CoV-2 (COVID-19) RNA not detected, presumed negative. Swab NASOPHARYNGEAL STRUCTURE / Unknown Non-blood Collection / Unknown 10/14/2023 4:40 PM LINE DECORATOR 10/14/2023 4:50 PM LINE DECORATOR Narrative LABORATORY - 10/14/2023 6:12 PM LINE DECORATOR Testing was performed using the Xpert Xpress CoV2/Flu/RSV Assay on the [employer] GeneXpert Instrument. This test should be ordered for the detection of SARS-CoV-2, influenza, and RSV viruses in individuals who meet clinical and/or epidemiological criteria. Test performance is unknown in asymptomatic patients. This test is for in vitro diagnostic use under the FDA EUA for laboratories certified under CLIA to perform high or moderate complexity testing. This test has not been FDA cleared or approved. A negative result does not rule out the presence of PCR inhibitors in the specimen or target RNA in concentration below the limit of detection for the assay. If only one viral target is positive but coinfection with multiple targets is suspected, the sample should be re-tested with another FDA cleared, approved, or authorized test, if coinfection would change clinical management. This test was validated by the [facility]. These laboratories are certified under the Clinical Laboratory Improvement Amendments of 1988 (CLIA-88) as qualified to perform high complexity laboratory testing. Dulce Fisher PA-C LAB - MICRO GENERAL ORDERABLES LABORATORY [facility] Acute [facility] Lab [address] 1[address] floor, [address] [place] [address], [place] [phone] * Blood Culture Hand, Right (10/14/2023 2:28 PM LINE DECORATOR) Only the most recent of2 resultswithin the time period is included. Culture No Growth 10/19/2023 5:32 PM LINE DECORATOR [facility] Blood STRUCTURE OF RIGHT HAND / Unknown Venipuncture / Unknown 10/14/2023 2:28 PM LINE DECORATOR 10/14/2023 2:35 PM LINE DECORATOR Narrative [facility] - 10/19/2023 5:32 PM LINE DECORATOR Only an Aerobic Blood Culture Bottle was collected, interpret results with caution. Ilan Batres AB - MICRO GENERAL ORDERABLES [facility] Inf. Diseases Diag. Lab [address] [facility] [address], [address] [place] [address], [place] [phone] * Extra Blue Top Tube (10/14/2023 12:53 PM LINE DECORATOR) Hold Specimen JIC 10/14/2023 2:04 PM LINE DECORATOR LABORATORY Blood STRUCTURE OF LEFT UPPER LIMB / Unknown Venipuncture / Unknown 10/14/2023 12:53 PM LINE DECORATOR 10/14/2023 12:57 PM LINE DECORATOR Baldev Burton DO LAB - BLOO D ORDERABLES LABORATORY [facility] Acute [facility] Lab [address], [address] [place] [address], [facility] [phone] * (ABNORMAL) CBC with platelets and differential (10/14/2023 12:53 PM LINE DECORATOR) WBC Count 18.5(H) 4.0 - 11.0 10e3/uL 10/14/2023 1:02 PM [facility] RBC Count 4.25(L) 4.40 - 5.90 10e6/uL 10/14/2023 1:02 PM [facility] Hemoglobin 13.1(L) 13.3 - 17.7 g/dL 10/14/2023 1:02 PM [facility] Hematocrit 40.0 40.0 - 53.0 % 10/14/2023 1:02 PM [facility] MCV 94 78 - 100 fL 10/14/2023 1:02 PM [facility] MCH 30.8 26.5 - 33.0 pg 10/14/2023 1:02 PM [facility] MCHC 32.8 31.5 - 36.5 g/dL 10/14/2023 1:02 PM [facility] RDW 12.7 10.0 - 15.0 % 10/14/2023 1:02 PM [facility] Platelet Count 574(H) 150 - 450 10e3/uL 10/14/2023 1:02 PM [facility] % Neutrophils 83 % 10/14/2023 1:02 PM [facility] % Lymphocytes 10 % 10/14/2023 1:02 PM [facility] % Monocytes 6 % 10/14/2023 1:02 PM [facility] % Eosinophils 0 % 10/14/2023 1:02 PM [facility] % Basophils 0 % 10/14/2023 1:02 PM [facility] % Immature Granulocytes 1 % 10/14/2023 1:02 PM [facility] NRBCs per 100 WBC 0 <1 /100 024 1:02 PM [facility] Absolute Neutrophils 15.2(H) 1.6 - 8.3 10e3/uL 10/14/2023 1:02 PM LINE DECORATOR LABORATORY Absolute Lymphocytes 1.9 0.8 - 5.3 10e3/uL 10/14/2023 1:02 PM LINE DECORATOR LABORATORY Absolute Monocytes 1.1 0.0 - 1.3 10e3/uL 10/14/2023 1:02 PM [facility] Absolute Eosinophils 0.0 0.0 - 0.7 10e3/uL 10/14/2023 1:02 PM LINE DECORATOR LABORATORY Absolute Basophils 0.1 0.0 - 0.2 10e3/uL 10/14/2023 1:02 PM [facility] Absolute Immature Granulocytes 0.1 <=0.4 10e3/uL 10/14/2023 1:02 PM [facility] Absolute NRBCs 0.0 10e3/uL 10/14/2023 1:02 PM LINE DECORATOR LABORATORY Blood STRUCTURE OF LEFT UPPER LIMB / Unknown Venipuncture / Unknown 10/14/2023 12:53 PM LINE DECORATOR 10/14/2023 12:57 PM LINE DECORATOR Baldev Burton DO LAB - BLOO D ORDERABLES LABORATORY [facility] Lab [address] 1[address], [address] [place] [address], [facility] [phone] * Procalcitonin (10/14/2023 12:53 PM LINE DECORATOR) Procalcitonin 0.07 <0.50 ng/mL 10/14/2023 2:31 PM LINE DECORATOR LABORATORY Comment: Interpretation and Recommendations <0.5 ng/mL: Systemic bacterial infection unlikely. Local bacterial infection is possible. 0.5-1.99 ng/mL: Systemic bacterial infection possible, but various other conditions are known to induce PCT as well. >=2.00 ng/mL: Systemic bacterial infection likely, unless other causes are known. Decision to start antibiotics should not be based on procalcitonin level alone. See Procalcitonin Guidance document for more details. [email or web address] Factors that may affect PCT levels (not all-inclusive): ?? - Increased PCT level ?Severe trauma/interiano ?Invasive surgery ?Cooling therapy after cardiac arrest/surgery ?Treatment with agents which stimulate cytokines ?Acute kidney injury ?Chronic kidney disease and end stage renal disease ?Acute graft vs host disease ?Non-specific shock causing decreased organ perfusion and/or infarction ?? - Normal or unchanged PCT level ?Early in infections (if low and infection is suspected, repeating in 6-12 hours is recommended) ?Chronic infections (endocarditis, osteomyelitis, prosthetic device/graft infections) ?Localized infections (cellulitis, wound infections, intra-abdominal abscess) Note: PCT has not been extensively studied in /, pediatrics, severe immunosuppression, and cystic fibrosis. Blood STRUCTURE OF LEFT UPPER LIMB / Unknown Venipuncture / Unknown 10/14/2023 12:53 PM LINE DECORATOR 10/14/2023 12:57 PM LINE DECORATOR Dulce Fisher PA-C LAB - BLOOD ORDERABLES Performing Organization Address [facility] de Phone Number LABORATORY [facility] [address], [address] [place] [address], [facility] [phone] * Lipase (10/14/2023 12:53 PM LINE DECORATOR) Pathologist [facility] Lipase 60 13 - 60 U/L 10/14/2023 1:22 PM LINE DECORATOR LABORATORY Blood STRUCTURE OF LEFT UPPER LIMB / Unknown Venipuncture / Unknown 10/14/2023 12:53 PM LINE DECORATOR 10/14/2023 12:57 PM LINE DECORATOR Baldev Burton DO LAB - BLOO D ORDERABLES Performing Organization Address City/[facility] Co de Phone Number LABORATORY [facility] [address], [address] [place] [address], [facility] [phone] * (ABNORMAL) Hemoglobin A1c (10/14/2023 12:53 PM LINE DECORATOR) Hemoglobin A1C 8.4(H) <5.7 % 10/14/2023 4:04 PM LINE DECORATOR LABORATORY Comment: Normal <5.7% Prediabetes 5.7-6.4% ?? Diabetes 6.5% or higher Note: Adopted from ADA consensus guidelines. Blood STRUCTURE OF LEFT UPPER LIMB / Unknown Venipuncture / Unknown 10/14/2023 12:53 PM LINE DECORATOR 10/14/2023 12:57 PM LINE DECORATOR Dulce Fisher PA-C LAB - BLOOD ORDERABLES Performing Organization Address [facility]/ZIP Co de Phone Number LABORATORY [facility] Lab [address] 1[address], [address] [place] [address], [facility] [phone] from Last 3 Months Advance Directives For more information, please contact: [phone] * Full Code (Latest Code Status on File) Date Activated Date Inactivated Comments 10/14/2023 5:28 PM 10/16/2023 6:33 PM All basic an d advanced life-sustaining interventions are performed as appropriate Question Answer Comments Code status determined by: Discussion with patie nt/ legal decision maker * Full Code Date Activated Date Inactivated Comments 08/26/2015 8:28 AM 07/21/2019 11:52 AM * DNR/DNI Date Activated Date Inactivated Comments 08/23/2015 6:11 PM 08/26/2015 8:28 AM Care Teams Flight Line Service Attendant Relationship Specialty Start Date End Date Merrill Mejia MD [address] [place] [address] PCP - General Family Medicine 10/25/23 Shaneka Patel MD [address] [place] [address] Cardiovascular Disease 09/16/23 Shaneka Patel MD [address] [place] [address] Cardiovascular Disease 09/16/23 Shaneka Patel MD [address] [place] [address] Assigned Heart and Vascular Provider 09/26/23
--- OUTSIDE RECORDS SUMMARY | 2024-01-08 07:14 | XMS_ITS | Clinical Summary ---
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 If symptoms persist 5 minutes after 1st dose call 911. 20 tablet 3 09/23/2023 Active rivaroxaban ANTICOAGULANT (XARELTO) 20 MG TABS tabletIndications:At rial flutter, unspecified type (H),Paroxysmal atrial flutter (H) [...] diabetic neuropathy, unspecified (H) 10/30/2023 Medical Correspondence [facility] [address] [place] [id number] Scan, Non-Provider 10/16/2023 11:59 PM [facility] Anesthesia Event [facility] [address] [phone] Jez Su MD 10/16/2023 8:27 AM [facility] Anesthesia Event [facility] [address] [place] [address] Jez Su MD 10/16/2023 8:20 AM [facility] - 10/16/2023 8:35 AM [facility] Surgery [facility] [address] [place] [address] Carter Ellis MD Anesthesia cardioversion 10/15/2023 10:30 AM [facility] - 10/15/2023 10:45 AM [facility] Surgery [facility] [address] [place] [address] GENERIC ANESTHESIA PROVIDER cardioversion 10/14/2023 12:37 PM [facility] - 10/16/2023 4:33 PM [facility] Hospital Encounter [facility] Extended Recovery and Short Stay [address] [facility] [place] [phone] Ilan Alves MD Nistor, Doina Simona, MD Type 2 diabetes mellitus with stage 3b chronic kidney disease, with long-term current use of insulin (H) (Primary Dx); Hypoglycemia; Community acquired pneumonia, unspecified laterality; Episode of confusion; Chest pain, unspecified type; Weakness; History of atrial fibrillation; Calcification of coronary artery Discharge Disposition: Home-Health Care Svc 10/14/2023 Travel 10/14/2023 Telephone [facility] [address] [facility] [address] [place] [phone] Shaneka Patel MD 10/14/2023 Telephone [facility] [address] [facility] [address] [place] [phone] Lashell Osborn RN 10/12/2023 Medical Correspondence [facility] [address] [facility] [place] [address] Scan, Non-Provider [facility] from Last 3 Months Immunizations Name Administration [...] Sex Assigned at Male 09/28/2023 2:19 PM [facility] Gender Identity Male 09/28/2023 2:19 PM [facility] Sexual Orientation Straight 09/28/2023 2: 19 PM [facility] Last Filed Vital Signs Vital Sign Reading Time Taken Comments Blood Pressure 118/73 10/16/2023 10:04 AM [facility] Pulse 87 10/16/2023 10:04 AM [facility] Temperature 36.3 ??C (97.4 ??F) 10/16/2023 1 0:04 AM [facility] Respiratory Rate 18 10/16/2023 10:0 4 AM [facility] Oxygen Saturation 98% 10/16/2023 10: 04 AM [facility] Inhaled Oxygen Concentration - - Weight 95.7 kg (210 lb 14.4 oz) 10/16/2023 3:58 AM [facility] Height 185.4 cm (6' 1) 10/14/2023 5:59 PM [facility] Body Mass Index 27.82 10/14/2023 5:59 PM [facility] Plan of Treatment Upcoming Encounters Date Type Department Care Team (Late st Contact Info) Description 05/14/2024 12:30 PM CDT Office Visit [facility] [address] [place] [address] Gail Post MD [address] [place] [phone] Anushka Carrasquillo MD [address] [place] [phone] Health Maintenance Due Date Last Done Comments ADVANCE CARE PLANNING 1940 ANNUAL REVIEW OF HM ORDERS 1940 DIABETIC FOOT EXAM 1940 EYE EXAM 1940 MICROALBUMIN 1940 RSV VACCINE ( & 60+) (1 - 1-dose 60+ series) 2000 FALL RISK ASSESSMENT 01/29/2005 MEDICARE ANNUAL WELLNESS VISIT 01/29/2005 PHQ-2 (once per calendar year) 2023 COVID-19 Vaccine (2022- season) 2023 06/12/2023, 01/20/2022, 05/30/2021, Additional history exists A1C 01/12/2024 10/14/2023, 08/03, 08/01/2004 LIPID 10/15/2024 10/15/2023 BMP 10/16/2024 10/16/2023, 10/03, 10/14/2023, Additional history exists DTAP/TDAP/TD IMMUNIZATION (3 - Td or Tdap) 01/01/2030 01/02/2020, 11/30/2009 Pneumococcal Vaccine: 65+ Years Completed 05/16/2017, 09/17/2009, 07/03/2009 ZOSTER IMMUNIZATION Completed 10/20/2018, 10/03/2018, 08/18/2018, Additional history exists INFLUENZA VACCINE Completed 05/21/2023, , 06/03/2019, Additional history exists HPV IMMUNIZATION Aged Out [...] AND PROVIDER INTERPRETATION Routine 10/16/2023 7:05 PM [facility] GLUCOSE BY METER Routine 10/16/2023 12:0 6 PM [facility] HEPATITIS A ANTIBODY IGM Routine 10/16/2023 10:22 AM [facility] EKG 12-LEAD, TRACING ONLY Routine 10/16/2023 10:04 AM [facility] US ABDOMEN LIMITED Routine 10/16/2023 9: 36 AM [facility] CARDIOVERSION EXTERNAL Routine 8:35 AM [facility] ANESTHESIA, FOR CARDIOVERSION 10/16/2023 8:20 AM [facility] Chronic atrial fibrillation (H) GLUCOSE BY METER Routine 10/16/2023 7:29 AM [facility] EKG 12-LEAD, TRACING ONLY STAT 10/16/2023 7:11 AM [facility] HEPATITIS C ANTIBODY Add-On 10/16/2023 6:08 AM [facility] HEPATITIS B SURFACE ANTIGEN Add-On 10/16/2023 6:08 AM [facility] MAGNESIUM STAT 10/16/2023 6:08 AM [facility] INR STAT 10/16/2023 6:08 AM [facility] COMPREHENSIVE METABOLIC PANEL STAT 10/16/2023 6:08 AM [facility] CBC WITH PLATELETS Routine 10/16/2023 6: 08 AM [facility] GLUCOSE BY METER Routine 10/16/2023 1:10 AM [facility] GLUCOSE BY METER Routine 10/15/2023 9:26 PM [facility] GLUCOSE BY METER Routine 10/15/2023 5:29 PM [facility] GLUCOSE BY METER Routine 10/15/2023 12:0 1 PM [facility] XR CHEST 2 VIEWS Routine 10/15/2023 8:09 AM [facility] GLUCOSE BY METER Routine 10/15/2023 7:39 AM [facility] LIPID REFLEX TO DIRECT LDL PANEL Routine 10/15/2023 7:15 AM [facility] TROPONIN T, HIGH SENSITIVITY Routine 10/15/2023 7:15 AM [facility] CBC WITH PLATELETS Routine 10/15/2023 7: 15 AM [facility] COMPREHENSIVE METABOLIC PANEL Routine 10/15/2023 7:15 AM [facility] GLUCOSE BY METER Routine 10/15/2023 2:13 AM [facility] GLUCOSE BY METER Routine 10/14/2023 10:1 1 PM [facility] LACTIC ACID WHOLE BLOOD STAT 10/14/2023 6:53 PM [facility] GLUCOSE BY METER Routine 10/14/2023 5:42 PM [facility] INFLUENZA A/B, RSV, & SARS-COV2 PCR STAT 10/14/2023 4:40 PM [facility] TROPONIN T, HIGH SENSITIVITY STAT 10/14/2023 2:57 PM [facility] LACTIC ACID WHOLE BLOOD STAT 10/14/2023 2:57 PM [facility] BLOOD CULTURE STAT 10/14/2023 2:28 PM [facility] BLOOD CULTURE STAT 10/14/2023 2:20 PM [facility] XR CHEST 2 VIEWS STAT 10/14/2023 1:12 PM [facility] CBC WITH PLATELETS & DIFFERENTIAL STAT 10/14/2023 12:53 PM [facility] HEMOGLOBIN A1C Add-On 10/14/2023 12:53 PM [facility] MAGNESIUM Add-On 10/14/2023 12:53 PM [facility] PROCALCITONIN Add-On 10/14/2023 12:53 PM [facility] EXTRA BLUE TOP TUBE STAT 10/14/2023 1 2:53 PM [facility] CBC WITH PLATELETS AND DIFFERENTIAL STAT 10/14/2023 12:53 PM [facility] EXTRA TUBE STAT 10/14/2023 12:53 PM [facility] TROPONIN T, HIGH SENSITIVITY STAT 10/14/2023 12:53 PM [facility] LIPASE STAT 10/14/2023 12:53 PM [facility] COMPREHENSIVE METABOLIC PANEL STAT 10/14/2023 12:53 PM [facility] EKG 12-LEAD, TRACING ONLY STAT 10/14/2023 12:41 PM [facility] from Last 3 Months Results * HOLTER MONITOR 48 HOUR APPLICATION SCAN ANALYSIS AND PROVIDER INTERPRETATION (10/16/2023 7:05 PM [facility]) Anatomical Region Laterality Modality Other 10/16/2023 4:17 PM [facility] 10/21/2023 6:00 PM [facility] Narrative 10/21/2023 6:00 PM [facility] Kamron Talavera Sarthak was monitored for 48 hours. Quality of the tracing was good. Predominant rhythm was Atrial fibrillation ??(61% of the recording). Average HR was 112 bpm, maximum HR was 163 bpm at 12:42 PM (Day 1), minimum HR was 74 bpm at 6:18 AM ??(Day 1). MT interval measured 0.17 seconds, QRS duration 0.09 seconds, QT interval 0.297-0.336 seconds. There were zero pauses over 2.0 seconds. 2. There were 7,774 ventricular ectopic beats (3% [place]), 7,187 of these were isolated PVCs. There were 269 couplets and 15 ??triplets. There was one 4 beat ventricular run with a rate of 176 bpm at 6:15 PM (Day 2). 3. There were 8,313 supraventricular ectopic beats (3% [place]), 6,963 of these were isolated PACs. There [...] were noted. 10/19/2023 Confirmed by SHANEKA PATEL ([id number]) on 10/21/2023 6:00:23 PM Procedure Note Shaneka Patel MD - 10/21/2023 1. Ilan De León was monitored for 48 hours. Quality of the tracingwas good. Predominant rhythm was Atrial fibrillation (61% of therecording). Average HR was 112 bpm, maximum HR was 163 bpm at 12:42 PM (Day 1),minimum HR was 74 bpm at 6:18 AM (Day 1). MT interval measured 0.17seconds, QRS duration 0.09 seconds, QT interval 0.297-0.336 seconds. There were zero pauses over 2.0 seconds. 2. There were 7,774 ventricular ectopic beats (3% [place]), 7,187 of thesewere isolated PVCs. There were 269 couplets and 15 triplets. There wasone 4 beat ventricular run with a rate of 176 bpm at 6:15 PM (Day 2). 3. There were 8,313 supraventricular ectopic beats (3% [place]), 6,963 ofthese were isolated PACs. There were [...] were noted. 10/19/2023 Confirmed by SHANEKA PATEL ([id number]) on 10/21/2023 6:00:23 PM Merlyn Lyon [facility] CV CARDIAC SERVICES ORDERABLES * (ABNORMAL) Glucose by meter (10/16/2023 12:06 PM [facility]) Only the most recent of10 resultswithin the time period is included. GLUCOSE BY METER POCT 154(H) 70 - 99 mg/dL 10/16/2023 12:16 PM [facility] LABORATORY POC Blood, Capillary BLOOD SPECIMEN / Unknown 10/16/2023 12:06 PM [facility] 10/16/2023 12:16 PM [facility] Michelle [facility] POCT LABORATORY POC [facility] Acute Care Lab [address] floor, [address] [place] [address], [facility] [phone] * Hepatitis A antibody IgM (10/16/2023 10:22 AM LAB[facility]) Hepatitis A Antibody IgM Nonreactive Nonreactive 10/16/2023 3:37 PM [facility] Comment:Nonreactive results indicate either inadequate or delayed anti-HAV IgM response after known exposure to HAV or absence of acute or recent hepatitis A. Blood STRUCTURE OF RIGHT UPPER LIMB / Unknown Venipuncture / Unknown 10/16/2023 10:22 AM [facility] 10/16/2023 10:27 AM [facility] Gail Post MD LAB - BLOOD ORDERABL ES [facility] LABORATORY [facility] [address] [facility], [address] [place] [phone], [facility] [phone] * EKG 12-lead, tracing only (10/16/2023 10:04 AM LAB[facility]) Only the most recent of3 resultswithin the time period is included. Systolic Blood Pressure mmHg RADIOLOGY RESULTS Diastolic Blood Pressure mmHg RADIOLOGY RESULTS Ventricular Rate 91 BPM RAD IOLOGY RESULTS Atrial Rate 91 BPM RADIOLOG Y RESULTS MT Interval 182 ms RADIOLOG Y RESULTS QRS Duration 80 ms RADIOLO GY RESULTS QT 330 ms RADIOLOGY RESULTS QTc 405 ms RADIOLOGY RESULTS P [place] 74 degrees RADIOLOGY RESULTS R AXIS 19 degrees RADIOLOGY RESULTS T [place] 213 degrees RADIOLOGY RESULTS Interpretation ECG Sinus rhythm with occasional Premature ventricular complexes and Premature atrial complexes Cannot rule out Anterior infarct , age undetermined Abnormal ECG When compared with ECG of 16-OCT-2023 07:11, (unconfirmed) Sinus rhythm has replaced Atrial fibrillation Confirmed by MD ISAAC, JULIEN ([id number]), food expeditor Cole Pool ([id number]) on 10/18/2023 7:58:52 AM RADIOLOGY RESULTS 10/16/2023 10:0 4 AM [facility] 10/18/2023 7:58 AM [facility] Carter Ellis MD ECG ORDERABLES Performing Organization Address City/[facility]/ZIP Co de Phone Number RADIOLOGY RESULTS * US Abdomen Limited (10/16/2023 9:36 AM LAB[facility]) Anatomical Region Laterality Modality Abdomen/Pelvis Ultrasound Impressions 10/16/2023 10:25 AM [facility] IMPRESSION: 1. ??Hepatic steatosis, similar to previous. TRAVON HARRIS MD Narrative 10/16/2023 10:25 AM [facility] US ABDOMEN LIMITED 10/16/2023 9:36 AM CLINICAL [...] ORDERABLES * CARDIOVERSION EXTERNAL (10/16/2023 8:35 AM LAB[facility]) Anatomical Region Laterality Modality Other Narrative 10/16/2023 8:35 AM [facility] Carter Ellis MD ? 10/16/2023 ??9:05 AM [facility] Procedure: EP Cardioversion External Date/Time: 10/16/2023 8:35 [...] procedure a time out was called ?? [place] Protocol: the Joint Commission [place] Protocol was followed ?? Preparation: Patient was [...] ORDERABLES * (ABNORMAL) INR (10/16/2023 6:08 AM LABOR[facility]) [facility] INR 3.26(H) 0.85 - 1.15 10/16/2023 6:45 AM [facility] LABORATORY Blood STRUCTURE OF RIGHT HAND / Unknown Venipuncture / Unknown 10/16/2023 6:08 AM [facility] 10/16/2023 6:16 AM [facility] Merlyn Lyon [facility] LAB - BLOOD ORDERAB LES LABORATORY [facility] [address], [address] [address], [facility] [phone] * Magnesium (10/16/2023 6:08 AM LAB[facility]) Only the most recent of2 resultswithin the time period is included. [facility] Magnesium 1.9 1.7 - 2.3 mg/dL 10/16/2023 6:42 AM [facility] LABORATORY Blood STRUCTURE OF RIGHT HAND / Unknown Venipuncture / Unknown 10/16/2023 6:08 AM [facility] 10/16/2023 6:16 AM [facility] Merlyn Lyon [facility] LAB - BLOOD ORDERAB LES LABORATORY [facility] [address], [address] [place] [address], [facility] [phone] * Hepatitis C antibody (10/16/2023 6:08 AM LABORER [facility]) [facility] Hepatitis C Antibody Nonreactive Nonreactive 10/16/2023 3:31 PM [facility] Comment:A nonreactive screen ing test [...] Unknown Venipuncture / Unknown 10/16/2023 6:08 AM [facility] 10/16/2023 6:16 AM [facility] Gail Post MD LAB - BLOOD ORDERABL ES LABORATORY [facility] [address] [facility], [facility] [address] [address], [facility] [phone] * Hepatitis B surface antigen (10/16/2023 6:08 AM LABOR[facility]) Pathologist [facility] Hepatitis B Surface Antigen Nonreactive Nonreactive 10/16/2023 3:31 PM [facility] LABORATORY Blood STRUCTURE OF RIGHT HAND / Unknown Venipuncture / Unknown 10/16/2023 6:08 AM [facility] 10/16/2023 6:16 AM [facility] Gail Post MD LAB - BLOOD ORDERABL ES Performing Organization Address City/[facility]/ZIP Co de Phone Number LABORATORY [facility] [address] [facility], [address] [address], [facility] [phone] * (ABNORMAL) Comprehensive metabolic panel (10/16/2023 6:08 AM LAB[facility]) Only the most recent of3 resultswithin the time period is included. Pathologist [facility] Sodium 141 135 - 145 mmol/L 10/16/2023 6:42 AM [facility] LABORATORY Comment:Reference intervals for this test were updated on 05/28/2023 to more accurately reflect our healthy population. There may be differences in the flagging of prior results with similar values performed with this method. Interpretation of those prior results can be made in the context of the updated reference intervals. Potassium 3.9 3.4 - 5.3 mmol/L 10/16/2023 6:42 AM [facility] Carbon Dioxide (CO2) 27 22 - 29 mmol/L 10/16/2023 6:42 AM [facility] Anion Gap 11 7 - 15 mmol/L 10/16/2023 6:42 AM [facility] Urea Nitrogen 27.2(H) 8.0 - 23.0 mg/dL 10/16/2023 6:42 AM [facility] Creatinine 1.38(H) 0.67 - 1.17 mg/dL 10/16/2023 6:42 AM [facility] GFR Estimate 51(L) >60 mL/min/1. 73m2 10/16/2023 6:42 AM [facility] Calcium 9.1 8.8 - 10.2 mg/dL 10/16/2023 6:42 AM [facility] Chloride 103 98 - 107 mmol/L 10/16/2023 6:42 AM [facility] Glucose 135(H) 70 - 99 mg/dL 10/16/2023 6:42 AM [facility] Alkaline Phosphatase 107 40 - 150 U/L 10/16/2023 6:42 AM [facility] Comment:Reference intervals for this test were updated on 07/16/2023 to more accurately reflect our healthy population. There may be differences in the flagging of prior results with similar values performed with this method. Interpretation of those prior results can be made in the context of the updated reference intervals. AST 193(H) 0 - 45 U/L 10/16/2023 6:42 AM [facility] Comment:Reference intervals for this test were updated on 02/11/2023 to more accurately reflect our healthy population. There may be differences in the flagging of prior results with similar values performed with this method. Interpretation of those prior results can be made in the context of the updated reference intervals. ALT 240(H) 0 - 70 U/L 10/16/2023 6:42 AM [facility] Comment:Reference intervals for this test were updated on 02/11/2023 to more accurately reflect our healthy population. There may be differences in the flagging of prior results with similar values performed with this method. Interpretation of those prior results can be made in the context of the updated reference intervals. Protein Total 6.4 6.4 - 8.3 g/dL 10/16/2023 6:42 AM [facility] Albumin 2.9(L) 3.5 - 5.2 g/dL 10/16/2023 6:42 AM [facility] Bilirubin Total 0.3 <=1.2 mg/dL 10/16/2023 6:42 AM [facility] Blood STRUCTURE OF RIGHT HAND / Unknown Venipuncture / Unknown 10/16/2023 6:08 AM [facility] 10/16/2023 6:16 AM [facility] Bacilio Steele MD LAB - BLOOD OR DERABLES LABORATORY [facility] Acute Care Lab [address] 1[address], [address] [place] [address], [facility] [phone] * (ABNORMAL) CBC with platelets (10/16/2023 6:08 AM [facility]) Only the most recent of2 resultswithin the time period is included. WBC Count 10.7 4.0 - 11.0 10e3/uL 10/16/2023 6:22 AM [facility] RBC Count 4.08(L) 4.40 - 5.90 10e6/uL 10/16/2023 6:22 AM [facility] Hemoglobin 12.6(L) 13.3 - 17.7 g/dL 10/16/2023 6:22 AM [facility] Hematocrit 38.5(L) 40.0 - 53.0 % 10/16/2023 6:22 AM [facility]ORY MCV 94 78 - 100 fL 10/16/2023 6:22 AM [facility] MCH 30.9 26.5 - 33.0 pg 10/16/2023 6:22 AM [facility] MCHC 32.7 31.5 - 36.5 g/dL 10/16/2023 6:22 AM [facility] RDW 12.8 10.0 - 15.0 % 10/16/2023 6:22 AM [facility] Platelet Count 493(H) 150 - 450 10e3/uL 10/16/2023 6:22 AM [facility] LABORATORY Blood STRUCTURE OF RIGHT HAND / Unknown Venipuncture / Unknown 10/16/2023 6:08 AM [facility] 10/16/2023 6:16 AM [facility] Bacilio Steele MD LAB - BLOOD OR DERABLES LABORATORY [facility] Acute Care Lab [address], [address] [place] [address], [facility] [phone] * XR Chest 2 Views (10/15/2023 8:09 AM [facility]) Only the most recent of2 resultswithin the time period is included. Anatomical Region Laterality Modality Chest Digital Radiogra phy Impressions 10/15/2023 9:13 AM [facility] IMPRESSION: Stable cardiac silhouette which is partially obscured. Similar opacification of the left lung base which is favored secondary to a moderate-sized left pleural effusion with underlying consolidation not excluded. Similar calcified granuloma of the right lung base. No discernible pneumothorax. No acute displaced fracture. PRECIOUS YOON MD Narrative 10/15/2023 9:13 AM [facility] CHEST TWO VIEWS 10/15/2023 8:09 AM HISTORY: [...] acute displaced fracture. PRECIOUS YOON MD Dulce Fishre PA-C IMG DIAGNOS TIC IMAGING ORDERABLES * (ABNORMAL) Troponin T, High Sensitivity (10/15/2023 7:15 AM [facility]) Only the most recent of3 resultswithin the time period is included. Troponin T, High Sensitivity 30(H) <=22 ng/L 10/15/2023 8:11 AM [facility] LABORATORY Comment: Either a High Sensitivity Troponin [...] Unknown Venipuncture / Unknown 10/15/2023 7:15 AM [facility] 10/15/2023 7:39 AM [facility] Dulce Fisher PA-C LAB - BLOOD ORDERABLES LABORATORY [facility] Acute Care Lab [address], [address] [place] [address], [facility] [phone] * (ABNORMAL) Lipid panel reflex to direct LDL (10/15/2023 7:15 AM [facility]) Cholesterol 66 <200 mg/dL 10/15/2023 11:29 AM [facility] Triglycerides 65 <150 mg/dL 10/15/2023 11:29 AM [facility] Direct Measure HDL 26(L) >=40 mg/dL 2023 11:29 AM [facility] LDL Cholesterol Calculated 27 <=100 mg/dL 10/15/2023 11:29 AM [facility] Non HDL Cholesterol 40 <130 mg/dL 10/15/2023 11:29 AM [facility] Patient Fasting > 8hrs? Yes 10/15/2023 11:29 AM [facility] LABORATORY Blood STRUCTURE OF RIGHT UPPER LIMB / Unknown Venipuncture / Unknown 10/15/2023 7:15 AM [facility] 10/15/2023 7:39 AM [facility] Narrative LABORATORY - 10/15/2023 11:29 AM [facility] Cholesterol Desirable: ??<200 mg/dL Triglycerides Normal: ??Less [...] PA-C LAB - BLOOD ORDERABLES [facility] LABORATORY [facility] Core Lab [address] [facility], [address] [place] [address], [place] [phone] LABORATORY [facility] Acute Care Lab [address], [address] [place] [address], [place] [phone] * Lactic acid whole blood (10/14/2023 6:53 PM [facility]) Only the most recent of2 resultswithin the time period is included. Lactic Acid 1.4 0.7 - 2.0 mmol/L 10/14/2023 7:02 PM [facility] LABORATORY Blood STRUCTURE OF RIGHT HAND / Unknown Venipuncture / Unknown 10/14/2023 6:53 PM [facility] 10/14/2023 6:59 PM [facility] Dulce Fisher PA-C LAB - BLOOD ORDERABLES LABORATORY [facility] Acute Care Lab [address], [address] [place] [address], [facility] [phone] * Asymptomatic Influenza A/B, RSV, & SARS-CoV2 PCR (COVID-19) Nasopharyngeal (10/14/2023 4:40 PM LAB[facility]) [facility] Influenza A PCR Negative Negative 10/14/2023 6:12 PM [facility] LABORATORY Influenza B PCR Negative Negative 10/14/2023 6:12 PM [facility] LABORATORY RSV PCR Negative Negative 10/14/2023 6:12 PM [facility] LABORATORY SARS CoV2 PCR Negative Negative 10/14/2023 6:12 PM [facility] LABORATORY Comment:NEGATIVE: SARS-CoV-2 (COVID-19) RNA not detected, presumed negative. Swab NASOPHARYNGEAL STRUCTURE / Unknown Non-blood Collection / Unknown 10/14/2023 4:40 PM [facility] 10/14/2023 4:50 PM [facility] LABORATORY - 10/14/2023 6:12 PM [facility] Testing was performed using the Xpert Xpress CoV2/Flu/RSV Assay on the [employer] GeneXpert Instrument. This test should be ordered [...] management. This test was validated by the [facility]. These laboratories are certified under the Clinical Laboratory Improvement Amendments of 1988 (CLIA-88) as qualified to perform high complexity laboratory testing. Dulce Fisher PA-C LAB - MICRO GENERAL ORDERABLES LABORATORY [facility] [address] 1st floor, [address] [place] [address], [place] [phone] * Blood Culture Hand, Right (10/14/2023 2:28 PM LABORER VINEYARD) Only the most recent of2 resultswithin the time period is included. Culture No Growth 10/19/2023 5:32 PM LAB[facility] Blood STRUCTURE OF RIGHT HAND / Unknown Venipuncture / Unknown 10/14/2023 2:28 PM LABOR[facility] VINEY[facility] 10/14/2023 2:35 PM [facility] Narrative [facility] - 10/19/2023 5:32 PM LABOR[facility] VINEYARD Only an Aerobic Blood Culture Bottle was collected, interpret results with caution. Ilan Batres AB - MICRO GENERAL ORDERABLES [facility] Inf. Diseases Diag. Lab [address] [facility], [address] [place] [address], [place] [phone] * Extra Blue Top Tube (10/14/2023 12:53 PM LABORER VINEYARD) Hold Specimen JIC 10/14/2023 2:04 PM [facility] Blood STRUCTURE OF LEFT UPPER LIMB / Unknown Venipuncture / Unknown 10/14/2023 12:53 PM LAB[facility] 10/14/2023 12:57 PM [facility] Baldev Burton DO LAB - BLOO D ORDERABLES LABORATORY [facility] [address], [address] [place] [address], [place] [phone] * (ABNORMAL) CBC with platelets and differential (10/14/2023 12:53 PM LABORER VINEYARD) WBC Count 18.5(H) 4.0 - 11.0 10e3/uL 10/14/2023 1:02 PM [facility] RBC Count 4.25(L) 4.40 - 5.90 10e6/uL 10/14/2023 1:02 PM [facility] Hemoglobin 13.1(L) 13.3 - 17.7 g/dL 10/14/2023 1:02 PM [facility] Hematocrit 40.0 40.0 - 53.0 % 10/14/2023 1:02 PM [facility] MCV 94 78 - 100 fL 10/14/2023 1:02 PM [facility] MCH 30.8 26.5 - 33.0 pg 10/14/2023 1:02 PM [facility] MCHC 32.8 31.5 - 36.5 g/dL 10/14/2023 1:02 PM [facility] RDW 12.7 10.0 - 15.0 % 10/14/2023 1:02 PM [facility] Platelet Count 574(H) 150 - 450 10e3/uL 10/14/2023 1:02 PM [facility] % Neutrophils 83 % 10/14/2023 1:02 PM [facility] % Lymphocytes 10 % 10/14/2023 1:02 PM [facility] % Monocytes 6 % 10/14/2023 1:02 PM [facility] % Eosinophils 0 % 10/14/2023 1:02 PM [facility] % Basophils 0 % 10/14/2023 1:02 PM [facility] % Immature Granulocytes 1 % 10/14/2023 1:02 PM [facility] NRBCs per 100 WBC 0 <1 /100 024 1:02 PM [facility] Absolute Neutrophils 15.2(H) 1.6 - 8.3 10e3/uL 10/14/2023 1:02 PM [facility] Absolute Lymphocytes 1.9 0.8 - 5.3 10e3/uL 10/14/2023 1:02 PM [facility] Absolute Monocytes 1.1 0.0 - 1.3 10e3/uL 10/14/2023 1:02 PM [facility] Absolute Eosinophils 0.0 0.0 - 0.7 10e3/uL 10/14/2023 1:02 PM [facility] Absolute Basophils 0.1 0.0 - 0.2 10e3/uL 10/14/2023 1:02 PM [facility] Absolute Immature Granulocytes 0.1 <=0.4 10e3/uL 10/14/2023 1:02 PM [facility] Absolute NRBCs 0.0 10e3/uL 10/14/2023 1:02 PM [facility] Blood STRUCTURE OF LEFT UPPER LIMB / Unknown Venipuncture / Unknown 10/14/2023 12:53 PM LAB[facility] 10/14/2023 12:57 PM [facility] Baldev Burton DO LAB - BLOO D ORDERABLES LABORATORY [facility] Acute Care Lab [address], [address] [place] [address], [facility] [phone] * Procalcitonin (10/14/2023 12:53 PM LABORER VINEYARD) Procalcitonin 0.07 <0.50 ng/mL 10/14/2023 2:31 PM [facility] Comment: Interpretation and Recommendations <0.5 ng/mL: Systemic bacterial infection unlikely. Local bacterial infection is possible. 0.5-1.99 ng/mL: Systemic bacterial infection possible, but various other conditions are known to induce PCT as well. >=2.00 ng/mL: Systemic bacterial infection likely, unless other causes are known. Decision to start antibiotics should not be based on procalcitonin level alone. See Procalcitonin Guidance document for more details. [email or web address] Factors that may affect PCT levels (not [...] Unknown Venipuncture / Unknown 10/14/2023 12:53 PM LABORER VINEYARD 10/14/2023 12:57 PM LAB[facility] Dulce Fisher PA-C LAB - BLOOD ORDERABLES [facility] Lab [address], [address] [place] [address], [facility] [phone] * Lipase (10/14/2023 12:53 PM LABORER VINEYARD) Lipase 60 13 - 60 U/L 10/14/2023 1:22 PM [facility] LAB[facility]ATORY Blood STRUCTURE OF LEFT UPPER LIMB / Unknown Venipuncture / Unknown 10/14/2023 12:53 PM LABORER [facility]INEYARD 10/14/2023 12:57 PM [facility] Baldev Burton DO LAB - BLOO D ORDERABLES LABORATORY [facility] Lab [address], [address] [place] [address], [place] [phone] * (ABNORMAL) Hemoglobin A1c (10/14/2023 12:53 PM LABORER VINEYARD) Hemoglobin A1C 8.4(H) <5.7 % 10/14/2023 4:04 PM [facility] Comment: Normal <5.7% Prediabetes 5.7-6.4% ?? Diabetes 6.5% or higher Note: Adopted from ADA consensus guidelines. Blood STRUCTURE OF LEFT UPPER LIMB / Unknown Venipuncture / Unknown 10/14/2023 12:53 PM LABORER [facility]INEYARD 10/14/2023 12:57 PM LABOR[facility] Dulce Fisher PA-C LAB - BLOOD ORDERABLES LABORATORY [facility] Acute Care Lab [address], [address] [place] [address], [facility] [phone] from Last 3 Months Advance Directives For more information, please contact: [phone] * Full Code (Latest Code Status on [...] 6:11 PM 08/26/2015 8:28 AM Care Teams Wafer Production Lead Worker Relationship Specialty Start Date End Date Merrill Mejia MD [address] [place], [place] [address] PCP - General Family Medicine 10/25/23 Shaneka Patel MD [address] [place], [place] [address] Cardiovascular Disease 09/16/23 Shaneka Patel MD [address] [place] [address] Cardiovascular Disease 09/16/23 Shaneka Patel MD [address] [place] [address] Assigned Heart and Vascular Provider 09/26/23
--- OUTSIDE RECORDS SUMMARY | 2024-01-08 07:14 | XMS_ITS | Encounter Summary ---
Author Name Unknown Organization [place] Address [facility] [place] [address] Care Team Providers Care Cane Furniture Maker Name Role Phone Nicanor Klein MD Unavailable Nicanor Klein MD Unavailable Nicanor Klein MD Unavailable Merrill Mejia MD Primary Care Provider [phone] Reason for Visit * Auth/Cert (Routine) Specialty Diagnoses / Procedures Referred By Noah t Referred To Contact Med Surg Diagnoses Weakness Hypoglycemia History of atrial fibrillation Episode of confusion Chest pain, unspecified type Community acquired pneumonia, unspecified laterality Chest pain, unspecified type Weakness History of atrial fibrillation Hypoglycemia Community acquired pneumonia, unspecified laterality Episode of confusion Short Stay [address] [facility] [place] [address] Referral ID Status Reason Start Date Expiration Date Visits Re quested Visits Authorized [id number] 1 1 Encounter Details Date Type Department Care Team (Late st Contact Info) Description 10/16/2023 8:27 AM GREENS CUTTER Anesthesia Event [facility] [address] [place] [address] Jez Su MD [facility] [address] [place] [address] Anesthesia Record Procedure Summary Procedure Name Responsible Anesthesiologist Anesthesia Start Time Anesthesia Stop Time Anesthesia cardioversion (Update) Jez Su MD 10/16/23 0827 10/16/23 0832 Events Date Time Event Comment 10/16/2023 0826 0827 An Start 0827 AN REASSESS I attest that I have identified and re-evaluated the patient immediately before the induction of anesthesia and I am satisfied that the anesthetic plan is suitable for the patient's condition and procedure. The first vital signs recorded are pre- induction. Nohemi Santana APRN BLUING OVEN TENDER 0829 An Induction 0830 Cardioversion 0832 An Stop Electronically signed by Nohemi Santana APRN CRNA on October 16, 2023 8:43 AM 0832 Quick Note Diagnosis: a-fi b. Procedure: Cardioversion. Ripening Room Attendant: Dr. Ellis. Location: Care [address]. Meds Name Total propofol 10 mg/mL 50 mg * Agents Name O2 Delivery Device O2 Auxiliary * Blood No blood administrations on file. Lines, Drains, and Airways Type Details Placement Removal Peripheral IV 10/14/23; 1440; 20 G ; Left; Antecubital fossa 10/14/23 1440 by Kala Chávez RN 10/16/23 1529 by Dawn Delgado RN documented in this encounter Social History Tobacco Use Types Packs/Day Years Used Date Smoking Tobacco: Never Alcohol Use Standard Drinks/Week Comments Yes 0 (1 standard drink = 0.6 oz pur e alcohol) Adolescent Education Answer Date Record ed Getting School Help Needed Not on file 06/09 Sex and Gender Information Value Date Recorded Sex Assigned at Male 09/28/2023 2:19 PM GREENS CUTTER Gender Identity Male 09/28/2023 2:19 PM GREENS CUTTER Sexual Orientation Straight 09/28/2023 2: 19 PM GREENS CUTTER documented as of this encounter OR Notes * Anesthesia Postprocedure Evaluation - Jez Su MD - 10/16/2023 11:18 AM CST Patient: Ilan Alaniz Procedure: Procedure(s): Anesthesia cardioversion Anesthesia Type: General Note: Postop Pain Control: Uneventful Sign Out: Well controlled pain PONV: No Neuro/Psych: Uneventful Sign Out: Acceptable/Baseline neuro status Airway/Respiratory: Uneventful Sign Out: Acceptable/Baseline resp. status CV/Hemodynamics: Uneventful Sign Out: Acceptable CV status Other NRE: NONE DID A NON-ROUTINE EVENT OCCUR? Last vitals: Vitals: 10/16/23 0840 10/16/23 0845 10/16/23 1004 BP: 95/52 95/65 118/73 Pulse: 77 79 87 Resp: Temp: 36.3 ??C (97.4 ??F) SpO2: 93% 94% 98% Electronically Signed By: Jez Su MD October 16, 2023 11:18 AM NS CUTTER * Anesthesia Preprocedure Evaluation - Jez Su MD - 10/16/2023 8:15 AM CST Anesthesia Pre-Procedure Evaluation Patient: Ilan Alaniz : 1940 Procedure : Procedure(s): Anesthesia cardioversion Past Medical History: Diagnosis Date Hypertrophy of prostate with urinary obstruction and other lower urinary tract symptoms (LUTS) Unspecified essential hypertension Past Surgical History: Procedure Laterality Date [facility] NONSPECIFIC PROCEDURE 2004 Cholecystectomy Z NONSPECIFIC PROCEDURE Appendectomy Z NONSPECIFIC PROCEDURE Lysis of adhesions for bowel obstruction (twice) Allergies Allergen Reactions Animal Dander Unknown and Other (See Comments) sneezing No Known Drug Allergy Social History Tobacco Use Smoking status: Never Smokeless tobacco: Not on file Substance Use Topics Alcohol use: Yes Wt Readings from Last 1 Encounters: 10/16/23 95.7 kg (210 lb 14.4 oz) Anesthesia Evaluation Pt has had prior anesthetic. No history of anesthetic complications ROS/MED HX ENT/Pulmonary: (+) recent URI, unresolved, CAP: Neurologic: Cardiovascular: (+) hypertension- - - - - dysrhythmias, a-fib, METS/Exercise Tolerance: Hematologic: Musculoskeletal: GI/Hepatic: Renal/Genitourinary: (+) BPH, Endo: Psychiatric/Substance Use: Infectious Disease: Malignancy: Other: OUTSIDE LABS: CBC: Lab Results Component Value Date WBC 10.7 10/16/2023 WBC 15.3 (H) 10/15/2023 HGB 12.6 (L) 10/16/2023 HGB 12.4 (L) 10/15/2023 HCT 38.5 (L) 10/16/2023 HCT 36.9 (L) 10/15/2023 PLT 493 (H) 10/16/2023 PLT 566 (H) 10/15/2023 BMP: Lab Results Component Value Date NA 141 10/16/2023 NA 138 10/15/2023 POTASSIUM 3.9 10/16/2023 POTASSIUM 3.8 10/15/2023 CHLORIDE 103 10/16/2023 CHLORIDE 100 10/15/2023 CO2 27 10/16/2023 CO2 26 10/15/2023 BUN 27.2 (H) 10/16/2023 BUN 26.1 (H) 10/15/2023 CR 1.38 (H) 10/16/2023 CR 1.41 (H) 10/15/2023 GLC 128 (H) 10/16/2023 GLC 135 (H) 10/16/2023 COAGS: Lab Results Component Value Date INR 3.26 (H) 10/16/2023 POC: Lab Results Component Value Date BGM 224 (H) 08/26/2015 HEPATIC: Lab Results Component Value Date ALBUMIN 2.9 (L) 10/16/2023 PROTTOTAL 6.4 10/16/2023 ALT 240 (H) 10/16/2023 AST 193 (H) 10/16/2023 ALKPHOS 107 10/16/2023 BILITOTAL 0.3 10/16/2023 OTHER: Lab Results Component Value Date LACT 1.4 10/14/2023 A1C 8.4 (H) 10/14/2023 AZUL 9.1 10/16/2023 MAG 1.9 10/16/2023 LIPASE 60 10/14/2023 TSH 1.53 08/23/2015 Anesthesia Plan ASA Status: 3 Anesthesia Type: General. - Airway: [place] airway Consents Postoperative Care Comments: Jez Su MD I have reviewed the pertinent notes and labs in the chart from the past 30 days and (re)examined the patient. Any updates or changes from those notes are reflected in this note. # Hyponatremia: Lowest Na = 134 mmol/L in last 30 days, will monitor as appropriate # Hypoalbuminemia: Lowest albumin = 2.9 g/dL at 10/16/2023 6:08 AM, will monitor as appropriate # Drug Induced Coagulation Defect: home medication list includes an anticoagulant medication # DMII: A1C = 8.4 % (Ref range: <5.7 %) within past 6 months # Overweight: Estimated body mass index is 27.82 kg/m?? as calculated from the following: Height as of this encounter: 1.854 m (6' 1). Weight as of this encounter: 95.7 kg (210 lb 14.4 oz). NS CUTTER documented in this encounter Miscellaneous Notes * Anesthesia Care Transfer Note - Nohemi Santana APRN CRNA - 10/16/2023 8:46 AM CST Patient: Ilan Alaniz Procedure: Procedure(s): Anesthesia cardioversion Diagnosis: Chronic atrial fibrillation (H) [I48.20] Diagnosis Additional Information: No value filed. Anesthesia Type: General Note: Oropharynx: oropharynx clear of all foreign objects and spontaneously breathing Level of Consciousness: drowsy Oxygen Supplementation: nasal cannula Level of Supplemental Oxygen (L/min / FiO2): 4 Independent Airway: airway patency satisfactory and stable Dentition: dentition unchanged Vital Signs Stable: post-procedure vital signs reviewed and stable Report to RN Given: handoff report given Patient transferred to: Cardiac Special Care Vitals: Vitals Value Taken Time BP 95/65 10/16/23 0845 Temp Pulse 80 10/16/23 0845 Resp 25 10/16/23 0845 SpO2 94 % 10/16/23 0845 Vitals shown include unfiled device data. Electronically Signed By: Nohemi Santana APRN CRNA October 16, 2023 8:46 AM NS CUTTER documented in this encounter Plan of Treatment Upcoming Encounters Date Type Department Care Team (Late st Contact Info) Description 05/14/2024 12:30 PM CDT Office Visit [facility] [address] [facility] [address] [place] [address] Gail Post MD [address] [place] [address] Anushka Carrasquillo MD [address] [facility] [address] [place] [address] documented as of this encounter Visit Diagnoses Not on filedocumented in this encounter Administered Medications Inactive Administered Medications - up to 3 most recent administrations Medication Order MAR Action Action Date Dose Rate Site propofol (DIPRIVAN) injection 10 mg/mL vial Intravenous, PRN, Starting on Sat10/16/23 at 0829, Anesthesia Intra-op $Given 10/16/2023 8:29 AM GREENS CUTTER 50 mg documented in this encounter Care Teams Cane Furniture Maker Relationship Specialty Start Date End Date Merrill Mejia MD [facility] [address] [place] [address] PCP - General Family Medicine 10/10/23 10/24/23 Nicanor Klein MD [address] [facility] [address] [place] [phone] Cardiovascular Disease 09/16/23 Nicanor Klein MD [address] [place] [phone] Cardiovascular Disease 09/16/23 Nicanor Klein MD [address] [facility] [address] [place] [phone] Assigned Heart and Vascular Provider 09/26/23 documented as of this encounter
--- OUTSIDE RECORDS SUMMARY | 2024-01-08 07:14 | XMS_ITS | Encounter Summary ---
Author Name Unknown Organization [place] Address [address] [place] [address] Care Team Providers Care Practice Director Name Role Phone Nicanor Klein MD Unavailable Nicanor Klein MD Unavailable Nicanor Klein MD Unavailable Merrill Mejia MD Primary Care Provider [phone] Reason for Referral * Consultation (Priority: 1-2 Weeks) - Pending Review Specialty Diagnoses / Procedures Referred By Noah t Referred To Contact Diabetes Education Diagnoses Other specified diabetes mellitus without complications (H) Type 2 diabetes mellitus without complications (H) Type 2 diabetes mellitus with diabetic neuropathy, unspecified (H) Merrill Mejia MD [facility] [address] [address] Referral ID Status Reason Start Date Expiration Date V isits Requested Visits Authorized [id number] Pending Review 11/01/2023 10/31/2024 1 1 Question Answer Last HgbA1c: A1C 8.4 10/14/2023 Type of Training and Number of Hours: New Diagnosis: Initial DSME/T - 10 Hours Diabetes Type: Type 2 Diabetes Co-Morbidities: None, Other Other: unknown A1C Goal: <7.0 Medical Nutrition Therapy (MNT) for Diabetes Previous Diagnosis: Annual Follow-up MNT - 2 hours Diabetes Education Topics: Comprehensive Knowledge Assessment and Instruction Special Educational Needs: No Type 1 or Type 2 group class available within 2 months Scheduling Instructions: [facility] will call you to coordinate your care as prescribed by your provider. If you don't hear from a airport representative within 2 business days, please call Comments Referral Transcribed by external fax Provider: Dr. Merrill Mejia affiliated with [facility]. VA: No If yes was is the VA Authorization Number: Phone number: [phone] Fax number: not listed Medicare covers 10 hours of initial Diabetes Self-Management Training (DSMT) in the 12-month period from the time of first visit after diagnosis, plus 2 hours of follow-up DSMT annually. Medical Nutrition Therapy (MNT) with a Registered Dietitian can be provided in coordination with DSMT to assist in achieving optimal diabetes management. Medicare will cover 3 hours of initial MNT in 12-month period from the time of first visit after diagnosis, plus 2 hours of follow-up MNT annually Please be aware that coverage of these services is subject to the terms and limitations of your health insurance plan. Call member services at your health plan to determine Diabetes Self-Management Training (Codes G0108 and G0109) and Medical Nutrition Therapy (Codes 55257 and 50483) benefits and ask which blood glucose monitor brands are covered by your plan. Please bring the following with you to your appointment: 1. List of current medications 2. List of Blood Glucose Monitor brands that are covered by your insurance plan 3. Blood Glucose Monitor and log book 4. Food records for the 3 days prior to your visit [facility] will call you to coordinate your care as prescribed by your provider. If you don't hear from a airport representative within 2 business days, please call ER'S HELPER Encounter Details Date Type Department Care Team (Latest Contact Info) Description 11/01/2023 Transcribe Orders GENERIC EXTERNAL DATA DEPARTMENT Provider, Generic External Data Other specified diabetes mellitus without complications (H) (Primary Dx); Type 2 diabetes mellitus without complications (H); Type 2 diabetes mellitus with diabetic neuropathy, unspecified (H) Social History Tobacco Use Types Packs/Day Years Used Date Smoking Tobacco: Never Alcohol Use Standard Drinks/Week Comments Yes 0 (1 standard drink = 0.6 oz pur e alcohol) Adolescent Education Answer Date Record ed Getting School Help Needed Not on file 06/09 Sex and Gender Information Value Date Recorded Sex Assigned at Male 09/28/2023 2:19 PM MOTHER'S HELPER Gender Identity Male 09/28/2023 2:19 PM MOTHER'S HELPER Sexual Orientation Straight 09/28/2023 2: 19 PM MOTHER'S HELPER documented as of this encounter Plan of Treatment Upcoming Encounters Date Type Department Care Team (Late st Contact Info) Description 05/14/2024 12:30 PM CDT Office Visit [facility] [address] [place] [address] Gail Post MD [address] [phone] Anushka Carrasquillo MD [address] [place] [address] Scheduled Referrals Name Type Priority Associated Diagnoses Orde r Schedule Adult Diabetes Education Flask Fitter Referral Referral Priority: 1-2 Weeks Other specified diabetes mellitus without complications (H) Type 2 diabetes mellitus without complications (H) Type 2 diabetes mellitus with diabetic neuropathy, unspecified (H) Expected: 11/01/2023 (Approximate), Expires: 10/31/2024 documented as of this encounter Visit Diagnoses Diagnosis Other specified diabetes mellitus without complications (H)- Primary Type 2 diabetes mellitus without complications (H) Type II or unspecified type diabetes mellitus without mention of complication, not stated as uncontrolled Type 2 diabetes mellitus with diabetic neuropathy, unspecified (H) documented in this encounter Care Teams Practice Director Relationship Specialty Start Date End Date Merrill Mejia MD [address] [place] [id number] PCP - General Family Medicine 10/25/23 Nicanor Klein MD [address] [place] [id number] Cardiovascular Disease 09/16/23 Nicanor Klein MD [address] [place] [address] Cardiovascular Disease 09/16/23 Nicanor Klein MD [address] [place] [address] Assigned Heart and Vascular Provider 09/26/23 documented as of this encounter
--- OUTSIDE RECORDS SUMMARY | 2024-01-08 07:15 | XMS_ITS | Encounter Summary ---
Author Name Unknown Organization [place] Address [facility] [place] [address] Care Team Providers Care Welding Teacher Name Role Phone Nicanor Klein MD Unavailable Nicanor Klein MD Unavailable Nicanor Klein MD Unavailable Merrill Mejia MD Primary Care Provider [phone] Encounter Details Date Type Department Care Team (Late st Contact Info) Description 10/16/2023 11:59 PM PARK GUIDE Anesthesia Event [facility] [address] [phone] Jez Su MD [facility] [address] [id number] Anesthesia Record Procedure Summary Procedure Name Responsible Anesthesiologist Anesthesia Start Time Anesthesia Stop Time CARDIOVERSION EXTERNAL Events No events on file. Meds * Agents No agents on file. * Blood No blood administrations on file. Lines, Drains, and Airways No LDAs on file. documented in this encounter Social History Tobacco Use Types Packs/Day Years Used Date Smoking Tobacco: Never Alcohol Use Standard Drinks/Week Comments Yes 0 (1 standard drink = 0.6 oz pur e alcohol) Adolescent Education Answer Date Record ed Getting School Help Needed Not on file 06/09 Sex and Gender Information Value Date Recorded Sex Assigned at Male 09/28/2023 2:19 PM PARK GUIDE Gender Identity Male 09/28/2023 2:19 PM PARK GUIDE Sexual Orientation Straight 09/28/2023 2: 19 PM PARK GUIDE documented as of this encounter Plan of Treatment Upcoming Encounters Date Type Department Care Team (Late st Contact Info) Description 05/14/2024 12:30 PM CDT Office Visit [facility] [address] [place] [phone] Gail Post MD [address] [place] [address] Anushka Carraqsuillo MD [address] [place] [address] documented as of this encounter Visit Diagnoses Not on filedocumented in this encounter Care Teams Welding Teacher Relationship Specialty Start Date End Date Merrill Mejia MD [facility] [address] [address] PCP - General Family Medicine 10/10/23 10/24/23 Nicanor Klein MD [address] [place] [address] Cardiovascular Disease 09/16/23 Nicanor Klein MD [address] [place] [id number] Cardiovascular Disease 09/16/23 Nicanor Klein MD [address] [place] [address] Assigned Heart and Vascular Provider 09/26/23 documented as of this encounter
--- OUTSIDE RECORDS SUMMARY | 2024-01-08 07:15 | XMS_ITS | Encounter Summary ---
Author Name Unknown Organization [facility] Address [facility] [place] [address] Care Team Providers Care Vision Mixer Name Role Phone Nicanor Patel MD Unavailable Nicanor Patel MD Unavailable Nicanor Patel MD Unavailable Merrill Mejia MD Primary Care Provider [phone] Reason for Visit * Reason Comments Irregular Heart Beat Chest Pain * Auth/Cert (Routine) Specialty Diagnoses / Procedures Referred By Contalex t Referred To Contact Med Surg Diagnoses Weakness Hypoglycemia History of atrial fibrillation Episode of confusion Chest pain, unspecified type Community acquired pneumonia, unspecified laterality Chest pain, unspecified type Weakness History of atrial fibrillation Hypoglycemia Community acquired pneumonia, unspecified laterality Episode of confusion Short Stay [address] [place] [address] Referral ID Status Reason Start Date Expiration Date Visits Re quested Visits Authorized [id number] 1 1 Encounter Details Date Type Department Care Team (Late st Contact Info) Description 10/16/2023 8:20 AM CONTINUOUS CRUSHER OPERATOR - 10/16/2023 8:35 AM CONTINUOUS CRUSHER OPERATOR [facility] Services [address] [facility] [place] [address] Carter Ellis MD REHABILITATION MEDICINE PHYS [address] [facility] [address] [place] [address] Anesthesia cardioversion Surgery Details Date/Time Status Location OR Service Patient Class Case Class Case Type Trauma Case? 10/16/23 8:20 AM Posted SH OR SH Out of OR Recovery Cardiology Inpatient NEST 2 - Emergent (within 1hr) Panel 1 Procedure LRB Anes Op Region Wound Class Comments Anesthesia cardioversion N/A MAC Update Surgeon Surgeon Role Service Panel Carter Ellis MD Primary Cardiology 1 documented in this encounter Social History Tobacco Use Types Packs/Day Years Used Date Smoking Tobacco: Never Alcohol Use Standard Drinks/Week Comments Yes 0 (1 standard drink = 0.6 oz pur e alcohol) Adolescent Education Answer Date Record ed Getting School Help Needed Not on file 06/09 Sex and Gender Information Value Date Recorded Sex Assigned at Male 09/28/2023 2:19 PM CONTINUOUS CRUSHER OPERATOR Gender Identity Male 09/28/2023 2:19 PM CONTINUOUS CRUSHER OPERATOR Sexual Orientation Straight 09/28/2023 2: 19 PM CONTINUOUS CRUSHER OPERATOR documented as of this encounter Last Filed Vital Signs Vital Sign Reading Time Taken Comments Blood Pressure 96/65 10/16/2023 8:35 AM CONTINUOUS CRUSHER OPERATOR Pulse 81 10/16/2023 8:35 AM CONTINUOUS CRUSHER OPERATOR Temperature 36.4 ??C (97.6 ??F) 10/16/2023 7:22 AM CS T Respiratory Rate 22 10/16/2023 8:35 AM CONTINUOUS CRUSHER OPERATOR Oxygen Saturation 96% 10/16/2023 8:35 AM CONTINUOUS CRUSHER OPERATOR Inhaled Oxygen Concentration - - Weight 95.7 kg (210 lb 14.4 oz) 10/16/2023 3:58 AM CONTINUOUS CRUSHER OPERATOR Height 185.4 cm (6' 1) 10/14/2023 5:59 PM CONTINUOUS CRUSHER OPERATOR Body Mass Index 27.82 10/14/2023 5:59 PM CONTINUOUS CRUSHER OPERATOR documented in this encounter Discharge Summaries * Gail Post MD - 10/16/2023 1:05 PM CST Images from the original note were not included. [facility] Discharge Summary Hospitalist Date of Admission: 10/14/2023 Date of Discharge: 10/16/2023 Discharging Provider: Gail Post MD Discharge Diagnoses Atrial fibrillation status post cardioversion History of Present Illness Please review admission history and physical. Hospital Course Ilan Alaniz was admitted on 10/14/2023. The following problems were addressed during his hospitalization: Principal Problem: History of atrial fibrillation Active Problems: Weakness Hypoglycemia Episode of confusion Chest pain, unspecified type Community acquired pneumonia, unspecified laterality Ilan Alaniz is a 83 year old male with a past medical history of hypertension, a-fib anticoagulated on Xerelto, type 2 diabetes, stage 3A chronic kidney disease and dyslipidemia registered observation on 10/14/2023. He presents with multiple concerns including decreased energy, persistent chest pain, recurrent hypoglycemia with mismanagement of insulin, and exertional dyspnea. Atrial fibrillation/flutter on anticoagulation, recently diagnosed Controlled vs Rapid Ventricular Response Atenolol for rate control. Anticoagulated with Xarelto. Scheduled for outpatient cardioversion 10/15. Saw Dr. Nicanor Patel 09/23/23. He was admitted to observation, continued on telemetry prior to admission atenolol was switched to metoprolol by cardiology, Xarelto was continued, his heart rate remained in 120s, electrolytes replaced, cardiology was consulted here, he underwent cardioversion on 10/16, pl an is to continue metoprolol and Xarelto upon discharge. He has outpatient appointment set up with cardiology. Chest pain, recurrent Intermittent chest pain x2 months. Left, substernal. Not much worse than usual but may be exacerbated by probable pneumonia. Troponin flat 25-24, c/w prior levels 2 weeks ago. Has been seen multiple times for this. EKG: atrial fibrillation with rapid ventricular response, HR 103, with left axis deviation. No ST elevation. CXR: Small-moderate left pleural fluid. New consolidation or atelectasis at the left lung base. Obscured cardiac silhouette. Right lung appears clear. As below, scheduled for outpatient cardioversion 10/15. Continue PECAN CLEANER medications which include Xarelto, losartan and metoprolol. His rosuvastatin is on hold due to elevated liver function test. Patient denied having any chest pain on the day of discharge, insisted on leaving the hospital as soon as he can go he needs to follow-up outpatient withcardiology, report to the ER if chest pain occurs. elevated liver function test 10/16 --discussed with GI , consulted, I did order hepatitis panel along with ultrasound of the abdomen, ultrasound liver did not indicate any abnormalities other than hepatic steatosis, discussed with patient about staying for the results to come back, he mentioned that he would rather go home even if it means he would keel over and on his front door. I ordered repeat LFTs on discharge, he needs to follow-up with his primary care and GI. There was concern with this Zithromax is adding to his LFTs, stop Zithromax on discharge, patient will continue with Vantin. Community acquired pneumonia Elevated lactic acid, resolved Leukocytosis Presented with progressive generalized weakness, intermittent chest pain has been persistent as below, decreased energy, dyspnea on exertion. Patient denies fevers. Workup in the ED concerning for possible pneumonia. WBC 18.5. Lactic acid 3.1-->1.4, procalcitonin 0.07. Chest X-ray: small-moderate left pleural fluid. New consolidation or atelectasis at the left lung base. Obscured cardiac silhouette. Right lung appears clear. He was given 1 L normal saline and started on ceftriaxone and azithromycin in the ED. he received IV fluids, lactic acid levels normalized, started on Rocephin and Zithromax, discharged on room air with third-generation cephalosporins. Blood cultures negative to date. White count has normalized. Continue I-S use Insulin dependent type 2 diabetes Recurrent severe hypoglycemia *Persistent inability to manage insulin with frequent episodes of hypoglycemia. *PECAN CLEANER Regimen: Takes insulin Glargine 80-90 units at bed time, despite PCP recommendation that he takes 50 units. Last HbA1c 8.7% patient was on hypoglycemia protocol, was continued insulin here, metformin is on hold, continued on CHO diet there is concern whether he can manage his insulin, will arrange outpatient endocrine follow-up. Coronary artery disease Benign essential hypertension PECAN CLEANER Regimen: Atenolol, losartan, xarelto and rosuvastatin EKG: Atrial fibrillation with rapid ventricular response with left axis deviation Possible Anterior infarct , age undetermined. Last ECHO: 10/01/23 EF 60-65%. Last stress test: 08/21/23 Negative for inducible myocardial ischemia or infarction. Follows with cardiology at [facility] Dr. Patel. Continue PECAN CLEANER losartan, atenolol stopped. His PECAN CLEANER statin is on hold, continue holding that due to his elevated LFTs patient to follow-up outpatientwith cardiology team for further evaluation. Continue as needed nitroglycerin as needed, report to the ER if the pain persist. Cognitive Dysfunction, progressive *Inability to manage and administer medications in a safe manner. - OT consulted for formal cognitive evaluation. - Family looking into home health for more support at home. - Care transitions consulted regarding discharge planning and potential options for support in the house. Dyslipidemia Lipid panel on 10/15/23: total cholesterol 66, triglycerides 65, LDL 27, HDL 26. - PECAN CLEANER rosuvastatin on hold, consider restarting at a lower dose at the time of discharge. Chronic kidney disease, stage 3a Baseline creatinine 1.20-1.46. On admission, creatinine 1.49. Then remained stable on discharge, 1.38. Gail Post MD Significant Results and Procedures Pending Results These results will be followed up by [facility] Unresulted Labs Ordered in the Past 30 Days of this Admission Date and Time Order Name Status Description 10/16/2023 8:37 AM Hepatitis A antibody IgM In process 10/16/2023 8:37 AM Hepatitis C antibody In process 10/16/2023 8:37 AM Hepatitis B surface antigen In process 10/14/2023 1:51 PM Blood Culture Hand, Right Preliminary 10/14/2023 1:51 PM Blood Culture Hand, Left Preliminary Code Status Full Code Primary Care Physician Merrill Mejia Physical Exam Temp: 97.4 ??F (36.3 ??C) Temp src: Oral BP: 118/73 Pulse: 87 Resp: 18 SpO2: 98 % O2 Device: None (Room air) Oxygen Delivery: 4 LPM Vitals: 10/14/23 1759 10/15/23 0657 10/16/23 0358 Weight: 97 kg (213 lb 14.4 oz) 96.3 kg (212 lb 3.2 oz) 95.7 kg (210 lb 14.4 oz) Vital Signs with Ranges Temp: [97.4 ??F (36.3 ??C)-98.3 ??F (36.8 ??C)] 97.4 ??F (36.3 ??C) Pulse: [77-120] 87 Resp: [15-30] 18 BP: (95-144)/(47-83) 118/73 SpO2: [91 %-98 %] 98 % No intake/output data recorded. The patient was examined on the day of discharge. Discharge Disposition Discharged to home with home care Condition at discharge: Fair Consultations This Hospital Stay CARE MANAGEMENT / SOCIAL WORK IP CONSULT PHYSICAL THERAPY ADULT IP CONSULT OCCUPATIONAL THERAPY ADULT IP CONSULT CARDIOLOGY IP CONSULT GASTROENTEROLOGY IP CONSULT Time Spent on this Encounter IGail MD, personally saw the patient today and spent greater than 30 minutes discharging this patient. Discharge Orders Reason for your hospital stay Atrial fibrillation , pneumonia Follow-up and recommended labs and tests Follow up with primary care provider, Merrill Mejia, within 7 days for hospital follow- up. The following labs/tests are recommended: liver function test in 5-6 days, his statin is on hold, requested family to hold it until next liver fucntion test done, follow up with GI for further evaluation of elevated liver function.. Activity Your activity upon discharge: activity as tolerated Diet Follow this diet upon discharge: Orders Placed This Encounter Moderate Consistent Carb (60 g CHO per Meal) Diet Discharge Medications Current Discharge Medication List START taking these medications Details cefpodoxime (VANTIN) 200 MG tablet Take 1 tablet (200 mg) by mouth 2 times daily for 7 days Qty: 14 tablet, Refills: 0 Associated Diagnoses: Community acquired pneumonia, unspecified laterality metoprolol succinate ER (TOPROL XL) 25 MG 24 hr tablet Take 1 tablet (25 mg) by mouth daily Qty: 30 tablet, Refills: 0 Associated Diagnoses: History of atrial fibrillation CONTINUE these medications which have CHANGED Details rosuvastatin (CRESTOR) 40 MG tablet Take 1 tablet (40 mg) by mouth at bedtime Comments: hold Associated Diagnoses: Calcification of coronary artery CONTINUE these medications which have NOT CHANGED Details eszopiclone (LUNESTA) 2 MG tablet Take 2 mg by mouth nightly as needed for sleep gabapentin (NEURONTIN) 100 MG capsule Take 100 mg by mouth at bedtime INSULIN GLARGINE 100 UNIT/ML pen Inject Subcutaneous at bedtime 10/10/23: 82 units 10/11/23: 60 units 10/12/23: 50 units 10/13/23: 50 units lidocaine (LIDODERM) 5 % patch Place 1 patch onto the skin daily as needed for moderate pain (spasms) Applies to chest/shoulder/neck, also to feet losartan (COZAAR) 100 MG tablet Take 100 mg by mouth daily magnesium oxide (MAG-OX) 400 MG tablet Take 400 mg by mouth daily metFORMIN (GLUCOPHAGE XR) 500 MG 24 hr tablet Take 500 mg by mouth every morning mirabegron (MYRBETRIQ) 50 MG 24 hr tablet Take 50 mg by mouth daily Multiple Vitamins-Minerals (ICAPS AREDS 2 PO) Take 1 tablet by mouth 2 times daily multivitamin (CENTRUM SILVER) tablet Take 1 tablet by mouth daily nitroGLYcerin (NITROSTAT) 0.4 MG sublingual tablet For chest pain place 1 tablet under the tongue every 5 minutes for 3 doses. If symptoms persist 5 minutes after 1st dose call 911. Qty: 20 tablet, Refills: 3 Associated Diagnoses: Atypical chest pain oxyCODONE (ROXICODONE) 5 MG tablet Take 5 mg by mouth every 6 hours as needed for severe pain rivaroxaban ANTICOAGULANT (XARELTO) 20 MG TABS tablet Take 1 tablet (20 mg) by mouth daily (with dinner) Qty: 90 tablet, Refills: 3 Associated Diagnoses: Atrial flutter, unspecified type (H); Paroxysmal atrial flutter (H) Vitamin D3 (VITAMIN D, CHOLECALCIFEROL,) 25 mcg (1000 units) tablet Take 25 mcg by mouth daily STOP taking these medications amLODIPine (NORVASC) 2.5 MG tablet Comments: Reason for Stopping: atenolol (TENORMIN) 50 MG tablet Comments: Reason for Stopping: atenolol-chlorthalidone (TENORETIC) 50-25 MG tablet Comments: Reason for Stopping: Allergies Allergies Allergen Reactions Animal Dander Unknown and Other (See Comments) sneezing No Known Drug Allergy Data Most Recent 3 CBC's: Recent Labs Lab Test 10/16/23 0608 10/15/23 0715 10/14/23 1253 WBC 10.7 15.3* 18.5* HGB 12.6* 12.4* 13.1* MCV 94 92 94 PLT 493* 566* 574* Most Recent 3 BMP's: Recent Labs Lab Test 10/16/23 1206 10/16/23 0729 10/16/23 0608 10/15/23 0739 10/15/23 0715 10/14/23 1742 10/14/23 1253 NA -- -- 141 -- 138 -- 134* POTASSIUM -- -- 3.9 -- 3.8 -- 4.0 CHLORIDE -- -- 103 -- 100 -- 93* CO2 -- -- 27 -- 26 -- 29 BUN -- -- 27.2* -- 26.1* -- 30.1* CR -- -- 1.38* -- 1.41* -- 1.49* ANIONGAP -- -- 11 -- 12 -- 12 AZUL -- -- 9.1 -- 9.0 -- 9.2 GLC 154* 128* 135* < > 120* < > 201* < > = values in this interval not displayed. Most Recent 2 LFT's: Recent Labs Lab Test 10/16/23 0608 10/15/23 0715 AST 193* 64* ALT 240* 123* ALKPHOS 107 87 BILITOTAL 0.3 0.5 Most Recent INR's and Anticoagulation Dosing History: Anticoagulation Dose History Latest Ref Rng & Units 10/16/2023 Recent Dosing and Labs INR 0.85 - 1.15 3.26 Most Recent 3 Troponin's: Recent Labs Lab Test 08/23/15 1138 TROPI <0.015 The 99th percentile for upper reference range is 0.045 ug/L. Troponin values in the range of 0.045 - 0.120 ug/L may be associated with risks of adverse clinical events. Most Recent Cholesterol Panel: Recent Labs Lab Test 10/15/23 0715 CHOL 66 LDL 27 HDL 26* TRIG 65 Most Recent 6 Bacteria Isolates From Any Culture (See EPIC Reports for Culture Details): Recent Labs Lab Test 08/23/15 1940 CULT No growth Most Recent TSH, T4 and A1c Labs: Recent Labs Lab Test 10/14/23 1253 08/24/15 0740 08/23/15 1138 TSH -- -- 1.53 A1C 8.4* < > -- < > = values in this interval not displayed. Results for orders placed or performed during the hospital encounter of 10/14/23 Chest XR, PA & LAT Narrative CHEST TWO VIEWS 10/14/2023 1:12 PM HISTORY: Chest pain. COMPARISON: CT chest 08/16/2023. Impression IMPRESSION: New finding of small-moderate left pleural fluid. New consolidation or atelectasis at the left lung base. Obscured cardiac silhouette. Right lung appears clear. ELO DIETRICH MD SYSTEM ID: [id number] XR Chest 2 Views Narrative CHEST TWO VIEWS 10/15/2023 8:09 AM HISTORY: follow up possible pneumonia COMPARISON: 10/14/2023. Impression IMPRESSION: Stable cardiac silhouette which is partially obscured. Similar opacification of the left lung base which is favored secondary to a moderate-sized left pleural effusion with underlying consolidation not excluded. Similar calcified granuloma of the right lung base. No discernible pneumothorax. No acute displaced fracture. PRECIOUS YOON MD US Abdomen Limited Narrative US ABDOMEN LIMITED 10/16/2023 9:36 AM CLINICAL HISTORY: elevated lft TECHNIQUE: Limited abdominal ultrasound. COMPARISON: 08/23/2015 FINDINGS: GALLBLADDER: Surgically absent. BILE DUCTS: There is no biliary dilatation. The common duct measures 4mm. LIVER: Diffuse hepatic steatosis. RIGHT KIDNEY: No hydronephrosis. PANCREAS: The visualized portions of the pancreas are normal. No ascites. Impression IMPRESSION: 1. Hepatic steatosis, similar to previous. TRAVON HARRIS MD EP Cardioversion External Narrative Carter Ellis MD 10/16/2023 9:[address] [facility] Procedure: EP Cardioversion External Date/Time: 10/16/2023 8:35 AM Performed by: Carter Ellis MD Authorized by: Merlyn Lyon CNP UNIVERSAL [employer]OTOCOL Site Marked: Yes Prior Images Obtained and Reviewed: Yes Required items: Required blood products, implants, devices and special equipment available Patient identity confirmed: Verbally with patient Patient was reevaluated immediately before administering moderate or deep sedation or anesthesia Confirmation Checklist: Patient's identity using two indicators Time out: Immediately prior to the procedure a time out was called [place] Protocol: the Joint Commission [place] Protocol was followed Preparation: Patient was prepped and draped in usual sterile fashion ANESTHESIA Anesthesia was administered and monitored by anesthesiology. See anesthesia documentation for details. SEDATION Patient Sedated: Yes Vital signs: Vital signs monitored during sedation PROCEDURE DETAILS Cardioversion basis: elective Indications: failure of anti-arrhythmic medications Pre-procedure rhythm: atrial fibrillation Patient position: patient was placed in a supine position Chest area: chest area exposed Electrodes: pads Electrodes placed: anterior-posterior Number of attempts: 1 Details of Attempts: DC Cardioversion Procedure Note: Informed consent obtained. Pads placed in AP position. Anesthesia used, please see their documentation. Synchronized, biphasic 120J shock x 1 delivered and successful in converting atrial fibrillation to normal sinus rhythm without bradycardia or pauses. No apparent complications. INUOUS CRUSHER OPERATOR documented in this encounter Medications at Time of Discharge Medication Sig Dispensed Refills Start Date End Date eszopiclone (LUNESTA) 2 MG tablet Take 2 mg by mouth nightly as needed for sleep gabapentin (NEURONTIN) 100 MG capsule Take 100 mg by mouth at bedtime insulin glargine (LANTUS PEN) 100 UNIT/ML penIndications:Type 2 diabetes mellitus with stage 3b chronic kidney disease, with long-term current use of insulin (H) Inject 30 Units Subcutaneous at bedtime 15 mL 10/16/2023 insulin lispro (HUMALOG KWIKPEN) 100 UNIT/ML (1 unit dial) KWIKPENIndications:Typ e 2 diabetes mellitus with stage 3b chronic kidney disease, with long-term current use of insulin (H) Inject 1-20 Units Subcutaneous 3 times daily (before meals) 15 mL 10/16/2023 lidocaine (LIDODERM) 5 % patch Place 1 patch onto the skin daily as needed for moderate pain (spasms) Applies to chest/shoulder/neck, also to feet losartan (COZAAR) 100 MG tablet Take 100 mg by mouth daily magnesium oxide (MAG-OX) 400 MG tablet Take 400 mg by mouth daily metFORMIN (GLUCOPHAGE XR) 500 MG 24 hr tablet Take 500 mg by mouth every morning 06/06/2023 metoprolol succinate ER (TOPROL XL) 25 MG 24 hr tabletIndications:Hist ory of atrial fibrillation Take 1 tablet (25 mg) by mouth daily 30 tablet 10/17/2023 mirabegron (MYRBETRIQ) 50 MG 24 hr tablet Take 50 mg by mouth daily 05/07/2023 Multiple Vitamins-Minerals (ICAPS AREDS 2 PO) Take 1 tablet by mouth 2 times daily multivitamin (CENTRUM SILVER) tablet Take 1 tablet by mouth daily nitroGLYcerin (NITROSTAT) 0.4 MG sublingual tabletIndications:Atyp ical chest pain For chest pain place 1 tablet under the tongue every 5 minutes for 3 doses. If symptoms persist 5 minutes after 1st dose call 911. 20 tablet 3 09/23/2023 oxyCODONE (ROXICODONE) 5 MG tablet Take 5 mg by mouth every 6 hours as needed for severe pain rivaroxaban ANTICOAGULANT (XARELTO) 20 MG TABS tabletIndications:Atri al flutter, unspecified type (H),Paroxysmal atrial flutter (H) Take 1 tablet (20 mg) by mouth daily (with dinner) 90 tablet 3 09/30/2023 rosuvastatin (CRESTOR) 40 MG tabletIndications:Calc ification of coronary artery Take 1 tablet (40 mg) by mouth at bedtime 10/16/2023 Vitamin D3 (VITAMIN D, CHOLECALCIFEROL,) 25 mcg (1000 units) tablet Take 25 mcg by mouth daily cefpodoxime (VANTIN) 200 MG tabletIndications:Comm unity acquired pneumonia, unspecified laterality Take 1 tablet (200 mg) by mouth 2 times daily for 7 days 14 tablet 10/16/2023 10/23/2023 documented as of this encounter Progress Notes * Katelyn Nagel RN - 10/16/2023 4:01 PM CST BP 118/73 (BP Location: Right arm, Patient Position: Semi-Baker's, Cuff Size: Adult Regular) Pulse 87 Temp 97.4 ??F (36.3 ??C) (Oral) Resp 18 Ht 1.854 m (6' 1) Wt 95.7 kg (210 lb 14.4 oz) SpO2 98% BMI 27.82 kg/m?? Patient's condition and vital Signs are stable/WNL. Discharge instructions reviewed with patient and questions answered. Patient verbalizes understanding. IV removed. Pain under control. Patient is tolerating mod carb diet and denies any N/V. Patient to be discharged to home via his son. Patient has all belongings. 48hr monitor in place. INUOUS CRUSHER OPERATOR * Sarah Sheth PT - 10/16/2023 12:23 PM CST 10/16/23 1100 Appointment Info Signing Clinician's Name / Credentials (PT) Sarah Sheth, PT, DPT Living Environment People in Home spouse Current Living Arrangements house Home Accessibility stairs within home;stairs to enter home Number of Stairs, Main Entrance 4 Stair Railings, Main Entrance railings safe and in good condition Number of Stairs, Within Home, Primary greater than 10 stairs (15) Stair Railings, Within Home, Primary railings safe and in good condition Transportation Anticipated family or friend will provide Living Environment Comments Patient lives with his . There are 2 steps to enter from the front door and 4 steps from the garage. Patient all needs can be met on the main floor but patient does spend time time in his office located in the lower level. Patient has a walk-in shower with grab bars and a shower chair available. Self-Care Usual Activity Tolerance good Current Activity Tolerance good Equipment Currently Used at Home none Fall history within last six months no Activity/Exercise/Self-Care Comment Patient reports baseline independence with ADLs and mobility. He was not using an assistive device at baseline. Patient reports that since Decemeber 15, he has struggled with attacks affecting his heart. These were limiting his activity tolerance and causing significant fatigue. General Information Onset of Illness/Injury or Date of Surgery 10/14/23 Referring Physician Dulce Fisher PA-C Patient/Family Therapy Goals Statement (PT) Patient is eager to discharge home. Pertinent History of Current Problem (include personal factors and/or comorbidities that impact thePOC) 83-year-old male, admitted on 10/14/2023, presented with A-fib with RVR, community-acquired pneumonia, and fatigue. His medical history includes insulin-dependent type 2 diabetes, hypertension, and dyslipidemia. He experienced recurrent hypoglycemia due to mismanagement of insulin, requiring adjustments in his insulin regimen. Additionally, he reported intermittent chest pain possibly exacerbated by pneumonia, with a troponin level of 25-24 consistent with prior levels. Atrial fibrillation with a rapid ventricular response was noted, managed with Xarelto and Atenolol, with recommended cardioversion by cardiology. The pneumonia was treated with IV ceftriaxone and azithromycin, with monitoring for clinical improvement. Patient now s/p cardioversion. Existing Precautions/Restrictions cardiac;fall Cognition Affect/Mental Status (Cognition) WFL Orientation Status (Cognition) oriented x 4 Follows Commands (Cognition) WFL;delayed response/completion;increased processing time needed (JACKSON) Pain Assessment Patient Currently in Pain No Integumentary/Edema Integumentary/Edema Comments Age-related skin changes Posture Posture Forward head position;Protracted shoulders Range of Motion (ROM) Range of Motion ROM is WFL Strength (Manual Muscle Testing) Strength (Manual Muscle Testing) Able to perform R SLR;Able to perform L SLR;Deficits observed during functional mobility Strength Comments Unable to perform sit > stand without UE support. Bed Mobility Comment, (Bed Mobility) Not assessed, beginning and ending session seated on EOB. Transfers Comment, (Transfers) SBA for sit <> stand from bed. Gait/Stairs (Locomotion) Comment, (Gait/Stairs) SBA 10 ft ambulation without AD, forward flexed posture with slowed gait speed. Balance Balance Comments Impaired dynamic balance, no overt loss of balance while ambulating but demonstrating slow gait speed Sensory Examination Sensory Perception patient reports no sensory changes Clinical Impression Criteria for Skilled Therapeutic Intervention Yes, treatment indicated PT Diagnosis (PT) Impaired functional mobility Influenced by the following impairments Recent cardioversion, deconditioning, impaired balance, generalized weakness, decreased activity tolerance Functional limitations due to impairments Impaired independence with transfers, gait, and stairs Clinical Presentation (PT Evaluation Complexity) stable Clinical Presentation Rationale Clinical judgement, PMH, social support Clinical Decision Making (Complexity) low complexity Planned Therapy Interventions (PT) balance training;gait training;home exercise program;neuromuscular re-education;patient/family education;postural re- education;stair training;strengthening;transfertraining;progressive activity/exercise Risk & Benefits of therapy have been explained evaluation/treatment results reviewed;care plan/treatment goals reviewed;risks/benefits reviewed;participants voiced agreement with care plan;participants included;patient;spouse/significant other PT Total Evaluation Time PT Eval, Low Complexity Minutes (48311) 12 Physical Therapy Goals PT Frequency One time eval and treatment only PT Predicted Duration/Target Date for Goal Attainment 10/16/23 PT Goals Transfers;Gait;Stairs PT: Transfers Modified independent;Sit to/from stand PT: Gait Supervision/stand-by assist;150 feet PT: Stairs Supervision/stand-by assist;Greater than 10 stairs (Single rail) Interventions Interventions Quick Adds Therapeutic Activity;Gait Training Therapeutic Activity Therapeutic Activities: dynamic activities to improve functional performance Minutes (88107) 10 Symptoms Noted During/After Treatment Fatigue Treatment Detail/Skilled Intervention Patient greeted seated on EOB. present and attentive to patient's needs. Patient very JACKSON but following commands appropriately. Patient agreeable to PT session, feeling fine following cardioversion this morning. Session interrupted by GI and cardiology providers. continuing discussion with providers. Patient cued for x5 repeated sit <> stands for functional strengthening. Patient progressing from SBA > mod I for sit <> stands with UEs pushing from bed. Patient requires increased time between sit <> stands due to fatigue. At end of session, patient seated on bed. Discussed recommendation for HH PT to address remaining strength, balance, and endurance deficits. Patient and agreeable. Direct handoff with RN. Gait Training Gait Training Minutes (35880) 24 Symptoms Noted During/After Treatment (Gait Training) fatigue;shortness of breath Treatment Detail/Skilled Intervention Patient ambulates 260' and completes flight of stairs during session. Patient ambulates without assistive device, no overt loss of balance but ambulates very slowly. He often stops while talking due to shortness of breath and difficulty dual tasking. Patient descends stairs primarily with step-to pattern and LUE support on rail. Increased standing rest neededbefore ascending stairs. Patient alternates between [id number] and step-to pattern when ascending stairs, again needing UE support to facilitate. Distance in Feet 10ft eval + 260ft treatment PT Discharge Planning PT Plan Dc IP PT PT Discharge Recommendation (DC Rec) home with assist;home with home care physical therapy PT Rationale for DC Rec Patient mobilizing near prior level of function, continues to demonstrate impaired balance and activity tolerance. Anticipate discharge home with assist from . Recommend HH PT to address remaining strength, balance, and endurance deficits. PT Brief overview of current status SBA Total Session Time Timed Code Treatment Minutes 34 Total Session Time (sum of timed and untimed services) 46 INUOUS CRUSHER OPERATOR * Shashank Arellano, RN - 10/16/2023 9:08 AM CST Care Suites Post Procedure Note Patient Information Name: Ilan Alaniz Age: [age] year old Post Procedure Bedside report taken by receiving RN INUOUS CRUSHER OPERATOR * Merlyn Lyon CNP - 10/16/2023 7:41 AM CST [facility] Cardiology Progress Note Date of Service: 10/16/2023 Primary Transportation Job Titles: Dr. Patel Staff Transportation Job Titles: Dr. Malik Assessment & Plan Ilan Alaniz is a 83 year old male admitted on 10/14/2023 with Afib RVR, community acquired pneumonia and fatigue. Interval History: No acute events overnight. He underwent successful DCCV this morning, he remains in NSR. He denies chest pain. Assessment: Atrial fibrillation with RVR Noted to be in Afib early September On Xarelto since 09/12 without interruption Rate control: Toprol XL 25 mg daily [PECAN CLEANER atenolol 50 mg daily] S/p successful DCCV today Hx of atypical chest pain with mild troponin elevation Trivial troponin elevation with no significant delta Likely demand in the setting of #1 Echocardiogram shows nml LV function and no wall motion abnormality No chest pain this admission Community acquire pneumonia Diabetes with recurrent hypoglycemia Plan: 48-holter to monitor for recurrent Afib/flutter. Continue Toprol XL 25 mg daily, stop PECAN CLEANER atenolol. Continue Xarelto 20 mg daily for stroke prophylaxis. Follow-up arranged with Rhonda Christian CNP, on 11/05/23. Okay to discharge from a cardiology standpoint. Merlyn Lyon, LICENSED LOAN OFFICER Pager: (7am - 5pm, M-F) Physical Exam Temp: 97.6 ??F (36.4 ??C) Temp src: Oral BP: 121/69 Pulse: 102 Resp: 20 SpO2: 91 % O2 Device: None (Room air) Vitals: 10/14/23 1759 10/15/23 0657 10/16/23 0358 Weight: 97 kg (213 lb 14.4 oz) 96.3 kg (212 lb 3.2 oz) 95.7 kg (210 lb 14.4 oz) Constitutional: NAD Skin: Warm and dry Head: Nontraumatic Neck: no JVD Lungs: normal Cardiovascular: regular rate and rhythm Abdomen: Benign Extremities and Back: No edema Neurological: Grossly nonfocal Medications - MEDICATION INSTRUCTIONS - - MEDICATION INSTRUCTIONS - azithromycin 250 mg Intravenous Q24H cefTRIAXone 2 g Intravenous Q24H gabapentin 100 mg Oral At Bedtime insulin aspart 1-7 Units Subcutaneous TID AC insulin aspart 1-5 Units Subcutaneous At Bedtime insulin glargine 30 Units Subcutaneous At Bedtime losartan 100 mg Oral Daily with supper metoprolol succinate ER 25 mg Oral Daily mirabegron 50 mg Oral Daily rivaroxaban ANTICOAGULANT 20 mg Oral Daily with supper senna-docusate 1 tablet Oral BID Or senna-docusate 2 tablet Oral BID sodium chloride (PF) 3 mL Intravenous Q8H sodium chloride (PF) 3 mL Intracatheter Q8H Data Most Recent 3 CBC's: Recent Labs Lab Test 10/16/23 0608 10/15/23 0715 10/14/23 1253 WBC 10.7 15.3* 18.5* HGB 12.6* 12.4* 13.1* MCV 94 92 94 PLT 493* 566* 574* Most Recent 3 BMP's: Recent Labs Lab Test 10/16/23 0729 10/16/23 0608 10/16/23 0110 10/15/23 0739 10/15/23 0715 10/14/23 1742 10/14/23 1253 NA -- 141 -- -- 138 -- 134* POTASSIUM -- 3.9 -- -- 3.8 -- 4.0 CHLORIDE -- 103 -- -- 100 -- 93* CO2 -- 27 -- -- 26 -- 29 BUN -- 27.2* -- -- 26.1* -- 30.1* CR -- 1.38* -- -- 1.41* -- 1.49* ANIONGAP -- 11 -- -- 12 -- 12 AZUL -- 9.1 -- -- 9.0 -- 9.2 GLC 128* 135* 169* < > 120* < > 201* < > = values in this interval not displayed. Most Recent 3 Troponin's: Recent Labs Lab Test 08/23/15 1138 TROPI <0.015 The 99th percentile for upper reference range is 0.045 ug/L. Troponin values in the range of 0.045 - 0.120 ug/L may be associated with risks of adverse clinical events. Most Recent 3 BNP's:No lab results found. Medical Decision Making 20 MINUTES SPENT BY ME on the date of service doing chart review, history, exam, documentation & further activities per the note. Clinically Significant Risk Factors Present on Admission # Hypoalbuminemia: Lowest albumin = 2.9 g/dL at 10/16/2023 6:08 AM, will monitor as appropriate # Drug Induced Coagulation Defect: home medication list includes an anticoagulant medication # Hypertension: Noted on problem list # DMII: A1C = 8.4 % (Ref range: <5.7 %) within past 6 months # Overweight: Estimated body mass index is 27.82 kg/m?? as calculated from the following: Height as of this encounter: 1.854 m (6' 1). Weight as of this encounter: 95.7 kg (210 lb 14.4 oz). INUOUS CRUSHER OPERATOR Associated attestation - Tian Malik MD - 10/16/2023 2:41 PM CONTINUOUS CRUSHER OPERATOR Physician Attestation I saw and evaluated Ilan Alaniz as part of a shared [employer]/PA visit. I personally reviewed the vital signs, medications, labs, and imaging. I personally provided a substantive portion of care for this patient and I approve the care plan aswritten by the RIANNA. I was involved with Medical Decision Making including: Tests personally interpreted in the past 24 hours: - EKG tracing showing Sinus Tests ORDERED & REVIEWED in the past 24 hours: - BMP - CMP Tian Malik MD, MD Date of Service (when I saw the patient): 10/16/23 * Heather Parada, NOBLE - 10/15/2023 6:00 PM CST Top portion must ALWAYS be completed PRIMARY Concern: PNA, chest pain SAFETY RISK Concerns (fall risk, behaviors, etc.): fall risk Isolation/Type: none Tests/Procedures for NEXT shift: sputum sample, cardioversion, CAIN Consults? (Pending/following, signed-off?) OT for decision-making Where is patient from? (Home, TCU, etc.): home with Other Important info for NEXT shift: Nitroglycerin available for chest pain. Anticipated DC date & active delays: SUMMARY NOTE: (either paste note here OR complete the info below- RN to choose one- delete info below if not used) Orientation/Cognitive: A/Ox4. Distractible at times, pleasant. Observation Goals (Met/ Not Met): IP Mobility Level/Assist Equipment: SBA gb Antibiotics & Plan (IV/po, length of tx left): azithro IV and rocephin IV Pain Management: denies Tele/VS/O2: VSS RA x HTN, tele ST int afib PVCs/PACs ABNL Lab/BG: BG 122>130>218. Trop 20s, stable. BUN 26.1, ALT 123, AST 64 Diet: mod carb, NPO at 0000 Bowel/Bladder: continent, voiding. No BM this shift, senna x1. Recommend senna 2 tab for investigative analyst. Skin Concerns: Bruise R thigh Drains/Devices: PIV SL Patient Stated Goal for Today: prep for procedures INUOUS CRUSHER OPERATOR * Liss Pride RN - 10/15/2023 4:39 PM CST [facility] Home [facility] Patient is currently receiving services with [facility]. The patient is currently receiving RN services. Patient's high risk case manager and home health team have been notified that patient is under inpatient status [facility] Liaison will continue to follow patient during stay. Please provide orders to resume home care at time of discharge if appropriate. INUOUS CRUSHER OPERATOR * Heather Parada RN - 10/15/2023 2:00 PM CST Observation goals PRIOR TO DISCHARGE Comments: -diagnostic tests and consults completed and resulted not met -vital signs normal or at patient baseline not met, tachycardia -tolerating oral intake to maintain hydration met -tolerating oral antibiotics or has plans for home infusion setup not met, IV abx -infection is improving pending -dyspnea improved and O2 sats greater than 88% on room air or prior home oxygen levels partially met, STEWARD -returns to baseline functional status partially met -safe disposition plan has been identified met Nurse to notify provider when observation goals have been met and patient is ready for discharge. INUOUS CRUSHER OPERATOR * Cedric, Bacilio Salazar MD - 10/15/2023 10:[address] [facility] Medicine Progress Note - Hospitalist Service Date of Admission: 10/14/2023 Assessment & Plan Ilan Alaniz is a 83 year old male with a past medical history of hypertension, a-fib anticoagulated on Xerelto, type 2 diabetes, stage 3A chronic kidney disease and dyslipidemia registered observation on 10/14/2023. He presents with multiple concerns including decreased energy, persistent chest pain, recurrent hypoglycemia with mismanagement of insulin, and exertional dyspnea. Atrial fibrillation/flutter on anticoagulation, recently diagnosed Controlled vs Rapid Ventricular Response Atenolol for rate control. Anticoagulated with Xarelto. Scheduled for outpatient cardioversion 10/15. Saw Dr. Nicanor Patel 09/23/23. - Registered to observation initially, then admitted to inpatient. - Telemetry. - PECAN CLEANER Atenolol switched to metoprolol per cardiology. - Continue PECAN CLEANER Xarelto. - PRN IV metoprolol for sustained heart rate >120. - Monitor K+/Mg++, replace PRN. - Cardiology consulted, appreciate their assistance. - Cardioversion initially planned for 10/15/23, however unable to be done. Further plan of care per Cardiology. Chest pain, recurrent Intermittent chest pain x2 months. Left, substernal. Not much worse than usual but may be exacerbated by probable pneumonia. Troponin flat 25-24, c/w prior levels 2 weeks ago. Has been seen multiple times for this. EKG: atrial fibrillation with rapid ventricular response, HR 103, with left axis deviation. No ST elevation. CXR: Small-moderate left pleural fluid. New consolidation or atelectasis at the left lung base. Obscured cardiac silhouette. Right lung appears clear. As below, scheduled for outpatient cardioversion 10/15. - Telemetry. - Xarelto, metoprolol, losartan. - PECAN CLEANER rosuvastatin on hold for now as noted below. - PRN EKG and nitroglycerin sublingual available for recurrent chest pain. - Cardiology consulted as noted below. - Suspicion for coronary artery disease is low. - Consider further evaluation if persistent chest pain after atrial fibrillation is treated. Community acquired pneumonia Elevated lactic acid, resolved Leukocytosis Presented with progressive generalized weakness, intermittent chest pain has been persistent as below, decreased energy, dyspnea on exertion. Patient denies fevers. Workup in the ED concerning for possible pneumonia. WBC 18.5. Lactic acid 3.1-->1.4, procalcitonin 0.07. Chest X-ray: small-moderate left pleural fluid. New consolidation or atelectasis at the left lung base. Obscured cardiac silhouette. Right lung appears clear. He was given 1 L normal saline and started on ceftriaxone and azithromycin in the ED. - Received IVF bolus in the ED. - Repeat lactic acid 10/14/23 at 1800. - Rocephin and azithromycin started on 10/14/23, continue the same. - Not hypoxic currently, monitor O2 sats with routine vitals. - Encourage use of IS/Flutter valve. - PRN DuoNebs available every 2 hours for wheezing/shortness of breath. Consider discharging patient with inhaler. - Blood cultures negative to date. - Recheck labs in AM. Insulin dependent type 2 diabetes Recurrent severe hypoglycemia *Persistent inability to manage insulin with frequent episodes of hypoglycemia. *PECAN CLEANER Regimen: Takes insulin Glargine 80-90 units at bed time, despite PCP recommendation that he takes 50 units. Last HbA1c 8.7% - Hypoglycemia protocol. - Preprandial and HS fingerstick checks or Q 4 hours while NPO. - Hold PECAN CLEANER metformin. - Medium dose sliding scale insulin ordered. - PECAN CLEANER lantus decreased to 30 units at bedtime. - Consistent CHO diet. - Social work consult to assist with discharge disposition and possibly home care. - Will look into continuous glucose monitor, but this may need to be obtained as an outpatient through PCP or Endocrinology. - Needs Endocrinology referral on discharge, diabetes education for him and his family, insulin administration assistance, at this juncture do not feel patient can manage his own insulin. Coronary artery disease Benign essential hypertension PECAN CLEANER Regimen: Atenolol, losartan, xarelto and rosuvastatin EKG: Atrial fibrillation with rapid ventricular response with left axis deviation Possible Anterior infarct , age undetermined. Last ECHO: 10/01/23 EF 60-65%. Last stress test: 08/21/23 Negative for inducible myocardial ischemia or infarction. Follows with cardiology at [facility] Dr. Patel. - Telemetry. - Continue PECAN CLEANER Losartan and Atenolol with hold parameters. - HOLD PECAN CLEANER Crestor for now, consider restarting at a lower dose upon discharge. - Continue PECAN CLEANER nitroglycerin SL PRN 0.4 mg SL tablet q5min times three doses for chest pain. - PRN IV hydralazine available for SBP >180. - Monitor BP trend and need for medication adjustments. Cognitive Dysfunction, progressive *Inability to manage and administer medications in a safe manner. - OT consulted for formal cognitive evaluation. - Family looking into home health for more support at home. - Care transitions consulted regarding discharge planning and potential options for support in the house. Dyslipidemia Lipid panel on 10/15/23: total cholesterol 66, triglycerides 65, LDL 27, HDL 26. - PECAN CLEANER rosuvastatin on hold, consider restarting at a lower dose at the time of discharge. Chronic kidney disease, stage 3a Baseline creatinine 1.20-1.46. On admission, creatinine 1.49. - Avoid nephrotoxins as able - contrast, NSAIDs. - Renally dose medications as able/needed. - Monitor intake and output. - Creatinine 1.41 on 10/25/23. - Recheck labs in AM. Observation Goals: -diagnostic tests and consults completed and resulted, -vital signs normal or atpatient baseline, -tolerating oral intake to maintain hydration, -tolerating oral antibiotics or has plans for home infusion setup, - infection is improving, -dyspnea improved and O2 sats greater than88% on room air or prior home oxygen levels, -returns to baseline functional status, -safe disposition plan has been identified, Nurse to notify provider when observation goals have been met and patient is ready for discharge. Diet: NPO per Anesthesia Guidelines for Procedure/Surgery Except for: Meds DVT Prophylaxis: DOAC Simeon Catheter: Not present Lines: None Cardiac Monitoring: ACTIVE order. Indication: Chest pain/ ACS rule out (24 hours) Code Status: Full Code Clinically Significant Risk Factors Present on Admission # Hypoalbuminemia: Lowest albumin = 3.1 g/dL at 10/15/2023 7:15 AM, will monitor as appropriate # Drug Induced Coagulation Defect: home medication list includes an anticoagulant medication # Hypertension: Noted on problem list # DMII: A1C = 8.4 % (Ref range: <5.7 %) within past 6 months # Overweight: Estimated body mass index is 28 kg/m?? as calculated from the following: Height as of this encounter: 1.854 m (6' 1). Weight as of this encounter: 96.3 kg (212 lb 3.2 oz). Disposition Plan Expected Discharge Date: 10/16/2023 Discharge Comments: Cardiology following. Cardioversion. Bacilio Steele MD Hospitalist Service [facility] Securely message with [employer] (more info) Text page via [facility] Paging/Directory Interval History Ilan Alaniz was seen this morning. He feels OK at the moment. Awaiting cardioversion, whichwas planned for 10:30 AM this morning, but now apparently is unable to be done this morning. Deniesfevers, chest pain, shortness of breath at rest, nausea, abdominal pain. His and his daughter were in the room this morning, discussed plan of care. Patient's daughter has concerns about his blood sugar management, recurrent episodes of hypoglycemia, asks about getting a continuous glucose monitor. Physical Exam Vital Signs: Temp: 97.9 ??F (36.6 ??C) Temp src: Oral BP: 115/70 Pulse: 119 Resp: 20 SpO2: 94 % O2 Device: None (Room air) Weight: 212 lbs 3.2 oz Constitutional: awake, alert, cooperative, no apparent distress, laying in the hospital bed Respiratory: no increased work of breathing, clear to auscultation bilaterally, no crackles or wheezing Cardiovascular: irregular rhythm, tachycardic, normal S1 and S2, no murmur noted GI: normal bowel sounds, soft, non-distended, non-tender Skin: warm, dry Musculoskeletal: no lower extremity pitting edema present Neurologic: awake, alert, answers questions appropriately, moves all extremities Medical Decision Making 50 MINUTES SPENT BY ME on the date of service doing chart review, history, exam, documentation & further activities per the note. Data I have personally reviewed the following data over the past 24 hrs: 15.3 (H) \ 12.4 (L) / 566 (H) 138 100 26.1 (H) / 130 (H) 3.8 26 1.41 (H) \ ALT: 123 (H) AST: 64 (H) AP: 87 TBILI: 0.5 ALB: 3.1 (L) TOT PROTEIN: 6.4 LIPASE: N/A Trop: 30 (H) BNP: N/A Procal: N/A CRP: N/A Lactic Acid: 1.4 Imaging results reviewed over the past 24 hrs: Recent Results (from the past 24 hour(s)) XR Chest 2 Views Narrative CHEST TWO VIEWS 10/15/2023 8:09 AM HISTORY: follow up possible pneumonia COMPARISON: 10/14/2023. Impression IMPRESSION: Stable cardiac silhouette which is partially obscured. Similar opacification of the left lung base which is favored secondary to a moderate-sized left pleural effusion with underlying consolidation not excluded. Similar calcified granuloma of the right lung base. No discernible pneumothorax. No acute displaced fracture. PRECIOUS YOON MD INUOUS CRUSHER OPERATOR * Heather Parada RN - 10/15/2023 10:00 AM CST Observation goals PRIOR TO DISCHARGE Comments: -diagnostic tests and consults completed and resulted not met -vital signs normal or at patient baseline not met, tachycardia -tolerating oral intake to maintain hydration met -tolerating oral antibiotics or has plans for home infusion setup not met, IV abx -infection is improving pending -dyspnea improved and O2 sats greater than 88% on room air or prior home oxygen levels partially met, STEWARD -returns to baseline functional status partially met -safe disposition plan has been identified met Nurse to notify provider when observation goals have been met and patient is ready for discharge. INUOUS CRUSHER OPERATOR * Lauryn Sanchez RN - 10/15/2023 6:00 AM CST Observation goals PRIOR TO DISCHARGE Comments: -diagnostic tests and consults completed and resulted not met -vital signs normal or at patient baseline met -tolerating oral intake to maintain hydration not met -tolerating oral antibiotics or has plans for home infusion setup not met, IV abx -infection is improving pending -dyspnea improved and O2 sats greater than 88% on room air or prior home oxygen levels partially met, STEWARD -returns to baseline functional status partially met -safe disposition plan has been identified met Nurse to notify provider when observation goals have been met and patient is ready for discharge. INUOUS CRUSHER OPERATOR * Lauryn Sanchez RN - 10/15/2023 2:00 AM CST Observation goals PRIOR TO DISCHARGE Comments: -diagnostic tests and consults completed and resulted not met -vital signs normal or at patient baseline met -tolerating oral intake to maintain hydration not met -tolerating oral antibiotics or has plans for home infusion setup not met, IV abx -infection is improving pending -dyspnea improved and O2 sats greater than 88% on room air or prior home oxygen levels partially met, STEWARD -returns to baseline functional status partially met -safe disposition plan has been identified met Nurse to notify provider when observation goals have been met and patient is ready for discharge. INUOUS CRUSHER OPERATOR * Lauryn Sanchez RN - 10/14/2023 10:00 PM CST Observation goals PRIOR TO DISCHARGE Comments: -diagnostic tests and consults completed and resulted not met -vital signs normal or at patient baseline met -tolerating oral intake to maintain hydration not met -tolerating oral antibiotics or has plans for home infusion setup not met, IV abx -infection is improving pending -dyspnea improved and O2 sats greater than 88% on room air or prior home oxygen levels partially met, STEWARD -returns to baseline functional status partially met -safe disposition plan has been identified met Nurse to notify provider when observation goals have been met and patient is ready for discharge. INUOUS CRUSHER OPERATOR * Heather Parada, RN - 10/14/2023 6:47 PM CST Observation goals PRIOR TO DISCHARGE Comments: -diagnostic tests and consults completed and resulted not met -vital signs normal or at patient baseline met -tolerating oral intake to maintain hydration met -tolerating oral antibiotics or has plans for home infusion setup not met, IV abx -infection is improving progressing -dyspnea improved and O2 sats greater than 88% on room air or prior home oxygen levels not met, STEWARD -returns to baseline functional status baseline unknown -safe disposition plan has been identified not met Nurse to notify provider when observation goals have been met and patient is ready for discharge. Top portion must ALWAYS be completed PRIMARY Concern: PNA, chest pain SAFETY RISK Concerns (fall risk, behaviors, etc.): fall risk Isolation/Type: none Tests/Procedures for NEXT shift: sputum sample, cardio consult Consults? (Pending/following, signed-off?) cardio pending Where is patient from? (Home, TCU, etc.): home with Other Important info for NEXT shift: Nitroglycerin available for chest pain. Anticipated DC date & active delays: 10/15- SUMMARY NOTE: (either paste note here OR complete the info below- RN to choose one- delete info below if not used) Orientation/Cognitive: A/Ox4. Distractible during admission. Observation Goals (Met/ Not Met): not met Mobility Level/Assist Equipment: SBA gb Antibiotics & Plan (IV/po, length of tx left): azithro IV and rocephin IV Pain Management: tyl x1 Tele/VS/O2: VSS RA x HTN, tele SR w/ PVCs and PACs. ABNL Lab/BG: BG 32>201>134. Trop 20s, stable. Lactic 3.1. Na+ 134, BUN 30.1, ALT 118, AST 65 Diet: cardiac, NPO at 0000 Bowel/Bladder: continent, straining to void. Bladder scan. Skin Concerns: SARAH skin at this time Drains/Devices: PIV SL Patient Stated Goal for Today: pain management. INUOUS CRUSHER OPERATOR * Heather Parada RN - 10/14/2023 5:14 PM CST RECEIVING UNIT ED HANDOFF REVIEW ED Nurse Handoff Report was reviewed by: Heather Parada RN on October 14, 2023 at 5:14 PM INUOUS CRUSHER OPERATOR documented in this encounter H&P Notes * Dulce Fisher PA-C - 10/14/2023 1:[address] [facility] History and Physical - Hospitalist Service Date of Admission: 10/14/2023 Assessment & Plan Ilan Alaniz is a 83 year old male with a past medical history of hypertension, a-fib anticoagulated on Xerelto, type 2 diabetes, stage 3A chronic kidney disease and dyslipidemia registered observation on 10/14/2023. He presents with multiple concerns including decreased energy, persistent chest pain, recurrent hypoglycemia with mismanagement of insulin, and exertional dyspnea. Community acquired pneumonia Elevated lactic acid, resolved Leukocytosis Presented with progressive generalized weakness, intermittent chest pain has been persistent as below, decreased energy, dyspnea on exertion. Patient denies fevers. Workup in the ED concerning for possible pneumonia. WBC 18.5 Lactic acid 3.1-->1.4, procalcitonin 0.07. Chest X-ray: small-moderateleft pleural fluid. New consolidation or atelectasis at the left lung base. Obscured cardiac silhoue tte. Right lung appears clear. He was given 1 L normal saline and started on ceftriaxone and azithromycin in the ED. - Registered to observation - Received IVF bolus in the ED - Repeat lactic acid 10/14/23 at 1800 - IV Azithromycin First dose received in the ED - IV ceftriaxone while hospitalized - Supplemental O2 available as needed; wean as able. - Encourage use of IS/Flutter valve. - PRN DuoNebs available every 2 hours for wheezing/shortness of breath. Consider discharging patient with inhaler. - Vital signs every 4 hours. - CBC ordered for the morning - Blood Cultures Chest pain, recurrent Intermittent chest pain x2 months. Left, substernal. Not much worse than usual but may be exacerbated by probable pneumonia. Troponin flat 25-24, c/w prior levels 2 weeks ago. Has been seen multiple times for this. EKG: atrial fibrillation with rapid ventricular response, HR 103, with left axis deviation. No ST elevation. CXR: Small-moderate left pleural fluid. New consolidation or atelectasis at the left lung base. Obscured cardiac silhouette. Right lung appears clear. As below, scheduled for outpatient cardioversion 10/15. - Telemetry - BB, ACEi with hold parameters - Statin - Repeat EKG and nitroglycerin sublingual available for recurrent chest pain - PRN IV hydralazine for SBP >180 - PRN IV metoprolol for sustained HR greater than 120 - Cardiology consultation-Ongoing chest pain and persistent afib/flutter - NPO after midnight until seen by cardiology in case of possible cardioversion - Check fasting lipid panel and HbA1c Atrial fibrillation/flutter on anticoagulation, recently diagnosed Controlled vs Rapid Ventricular Response Rate controlled with Atenolol. Anticoagulated with Xarelto. Scheduled for outpatient cardioversion 10/15. Saw Dr. Nicanor Patel 09/23/23. - Telemetry - Continue PECAN CLEANER Atenolol - Continue PECAN CLEANER anticoagulation, with Xerelto - PRN IV metoprolol for sustained heart rate >120 - Monitor K+/Mg++, replace PRN - Cardiology consult with plan for cardioversion. - NPO at midnight until cardiology consult Insulin dependent type 2 diabetes Recurrent severe hypoglycemia *Persistent inability to manage insulin with frequent episodes of hypoglycemia *PECAN CLEANER Regimen: Takes insulin Glargine 80-90 units at bed time, despite PCP recommendation that he takes 50 units. Last HbA1c 8.7% - Hypoglycemia protocol - Preprandial and HS fingerstick checks or Q 4 hours while NPO - Hold PECAN CLEANER oral antiglycemics (Metformin) - Sliding scale insulin medium dosing q4h BG checks - Long acting regimen: Reduced to 30 units at bedtime - Consistent CHO diet - Social work consult to assist with discharge disposition and possibly home care - Needs Endocrinology referral on discharge, diabetes education for him and his family, insulin administration assistance, at this juncture do not feel patient can manage his own insulin Recent Labs Lab 10/14/23 2211 10/14/23 1742 10/14/23 1253 GLC 221* 134* 201* Coronary artery disease Benign essential hypertension PECAN CLEANER Regimen: Atenolol, losartan, xarelto and rosuvastatin EKG: Atrial fibrillation with rapid ventricular response with left axis deviation Possible Anterior infarct , age undetermined Last ECHO: 10/01/23 EF 60-65% Last stress test: 08/21/23 Negative for inducible myocardial ischemia or infarction. Follows with cardiology at [facility] Dr. Patel - Telemetry-Yes - Continue PECAN CLEANER Losartan, Atenolol with hold parameters - HOLD PECAN CLEANER Crestor - Continue PECAN CLEANER nitroglycerin SL PRN 0.4 mg SL tablet q5min times three doses for chest pain - Hold PECAN CLEANER losartan for SBP less than 110 and Atenolol for HR less than 60 - PRN IV hydralazine available for SBP >180 - Monitor BP trend and need for medication adjustments Cognitive Dysfunction, progressive *Inability to manage and administer medications in a safe manner -OT for formal cognitive evaluation Dyslipidemia Baseline lipid panel unavailable - Continue PECAN CLEANER Crestor Chronic kidney disease, stage 3A Baseline Cr 1.20-1.46. On admission, 1.49.- Avoid nephrotoxins - contrast, NSAIDs - Renally dose medications as able/needed - Avoid nephrotoxic agents - Monitor intake and output - Repeat BMP on 10/15/23 Observation Goals: -diagnostic tests and consults completed and resulted, -vital signs normal or atpatient baseline, -tolerating oral intake to maintain hydration, -tolerating oral antibiotics or has plans for home infusion setup, - infection is improving, -dyspnea improved and O2 sats greater than88% on room air or prior home oxygen levels, -returns to baseline functional status, -safe disposition plan has been identified, Nurse to notify provider when observation goals have been met and patient is ready for discharge. Diet: Combination Diet Low Saturated Fat Na <2400mg Diet, No Caffeine Diet NPO per Anesthesia Guidelines for Procedure/Surgery Except for: Meds DVT Prophylaxis: DOAC and Pneumatic Compression Devices Simeon Catheter: Not present Lines: None Cardiac Monitoring: ACTIVE order. Indication: Chest pain/ ACS rule out (24 hours) Code Status: Full CodeFull code Clinically Significant Risk Factors Present on Admission # Hypoalbuminemia: Lowest albumin = 3.4 g/dL at 10/14/2023 12:53 PM, will monitor as appropriate # Drug Induced Coagulation Defect: home medication list includes an anticoagulant medication # Hypertension: Noted on problem list # DMII: A1C = 8.4 % (Ref range: <5.7 %) within past 6 months # Overweight: Estimated body mass index is 28.22 kg/m?? as calculated from the following: Height as of this encounter: 1.854 m (6' 1). Weight as of this encounter: 97 kg (213 lb 14.4 oz). Disposition Plan Expected Discharge Date: 10/15/2023 The patient's care was discussed with the Attending Physician, Dr. Eckert, Patient, and Patient's Family. Dominic Mukherjee APRN, YULI Fisher PA-C Hospitalist Service [facility] Securely message with [employer] (more info) Text page via [facility] Paging/Directory Chief Complaint Weakness and persistent chest pain. History is obtained from the patient and the patients family. History of Present Illness Ilan Alaniz is a 83 year old male with a past medical history of hypertension, a-fib anticoagulated on Xerelto, type 2 diabetes, stage 3A chronic kidney disease and dyslipidemia, who presentsto the ED with progressive weakness, persistent chest pain and exertional shortness of breath. He has previously been experiencing intermittent chest pain over the course of the past two months. He was diagnosed with a-flutter and placed on Xerelto three weeks ago. He is scheduled for a cardioversion to be completed on 10/15/23. He was also seen in the ED at [facility] [place] on 10/01 with symptoms similar to that which was previously mentioned. As before, he was found to be in a-fib/flutter with RVR. His dose of atenolol was subsequently increased with plan to have the planned cardioversion, which had already been scheduled for 10/15/23. In addition to the aforementioned concerns, he reports experiencing progressive weakness to the point of having difficulty getting out of bed, along with multiple episodes of profound hypoglycemia. Apparently, his blood glucose level has been in the 20s and 30s in the morning on multiple occasions.He endorses being diaphoretic and clammy during these hypoglycemic episodes. The family uses glucose tablets which were apparently recommended by a family friend. Of note, while his manages all of his other medications, she does not dose or administer his insulin. He appears to dose his insulin well above what his PCP has recommends. In order to fix his blood sugar. He regularly takes 90units before bed instead of the 50 units that was recommended. The patient's does report that they are in the process of setting up home care to assist with his medications. His also reports concerns that he has been declining cognitively over the course of the past 1-2 years, but has been declining more rapidly over the past couple months. She is concerned that this is contributing to his lack of understanding on how he should be dosing his insulin. At present, he is still endorsing chest pain, and generalized weakness but denies shortness of breath, fever, chills, diaphoresis, nausea, vomiting, abdominal pain, constipation or diarrhea. Past Medical History Past Medical History: Diagnosis Date Hypertrophy of prostate with urinary obstruction and other lower urinary tract symptoms (LUTS) Unspecified essential hypertension Past Surgical History Past Surgical History: Procedure Laterality Date [facility] NONSPECIFIC PROCEDURE 2004 Cholecystectomy [facility] NONSPECIFIC PROCEDURE Appendectomy [facility] NONSPECIFIC PROCEDURE Lysis of adhesions for bowel obstruction (twice) Prior to Admission Medications Prior to Admission Medications Prescriptions Last Dose Informant Patient Reported? Taking? INSULIN GLARGINE 100 UNIT/ML pen 10/13/2023 at 50 units in PM Spouse/Significant Other Yes Yes Sig: Inject Subcutaneous at bedtime 10/10/23: 82 units 10/11/23: 60 units 10/12/23: 50 units 10/13/23: 50 units Multiple Vitamins-Minerals (ICAPS AREDS 2 PO) 10/14/2023 at AM Spouse/Significant Other Yes Yes Sig: Take 1 tablet by mouth 2 times daily Vitamin D3 (VITAMIN D, CHOLECALCIFEROL,) 25 mcg (1000 units) tablet 10/14/2023 at AM Spouse/Significant Other Yes Yes Sig: Take 25 mcg by mouth daily amLODIPine (NORVASC) 2.5 MG tablet 10/13/2023 at HS Spouse/Significant Other Yes Yes Sig: Take 5 mg by mouth at bedtime atenolol (TENORMIN) 50 MG tablet 10/13/2023 at HS Spouse/Significant Other No Yes Sig: Take 1 tablet (50 mg) by mouth daily for 30 days atenolol-chlorthalidone (TENORETIC) 50-25 MG tablet 10/14/2023 at AM Spouse/Significant Other Yes Yes Sig: Take 1 tablet by mouth every morning eszopiclone (LUNESTA) 2 MG tablet Past Month at PM Spouse/Significant Other Yes Yes Sig: Take 2 mg by mouth nightly as needed for sleep gabapentin (NEURONTIN) 100 MG capsule 10/13/2023 at HS Spouse/Significant Other Yes Yes Sig: Take 100 mg by mouth at bedtime lidocaine (LIDODERM) 5 % patch Unknown at PRN Spouse/Significant Other Yes Yes Sig: Place 1 patch onto the skin daily as needed for moderate pain (spasms) Applies to chest/shoulder/neck, also to feet losartan (COZAAR) 100 MG tablet 10/13/2023 at dinner Spouse/Significant Other Yes Yes Sig: Take 100 mg by mouth daily magnesium oxide (MAG-OX) 400 MG tablet 10/14/2023 at AM Spouse/Significant Other Yes Yes Sig: Take 400 mg by mouth daily metFORMIN (GLUCOPHAGE XR) 500 MG 24 hr tablet 10/14/2023 at AM Spouse/Significant Other Yes Yes Sig: Take 500 mg by mouth every morning mirabegron (MYRBETRIQ) 50 MG 24 hr tablet 10/13/2023 at dinner Spouse/Significant Other Yes Yes Sig: Take 50 mg by mouth daily multivitamin (CENTRUM SILVER) tablet 10/14/2023 at AM Spouse/Significant Other Yes Yes Sig: Take 1 tablet by mouth daily nitroGLYcerin (NITROSTAT) 0.4 MG sublingual tablet Unknown at PRN Spouse/Significant Other No Yes Sig: For chest pain place 1 tablet under the tongue every 5 minutes for 3 doses. If symptoms persist 5 minutes after 1st dose call 911. oxyCODONE (ROXICODONE) 5 MG tablet Unknown at PRN, has home supply Spouse/Significant Other Yes Yes Sig: Take 5 mg by mouth every 6 hours as needed for severe pain rivaroxaban ANTICOAGULANT (XARELTO) 20 MG TABS tablet 10/13/2023 at dinner Spouse/Significant Other No Yes Sig: Take 1 tablet (20 mg) by mouth daily (with dinner) rivaroxaban ANTICOAGULANT (XARELTO) 20 MG TABS tablet at duplicate Spouse/Significant Other No No Sig: Take 1 tablet (20 mg) by mouth daily (with dinner) for 30 days rosuvastatin (CRESTOR) 40 MG tablet 10/13/2023 at HS Spouse/Significant Other No Yes Sig: Take 1 tablet (40 mg) by mouth at bedtime Facility-Administered Medications: None Physical Exam Vital Signs: Temp: 98.1 ??F (36.7 ??C) Temp src: Oral BP: 114/67 Pulse: 108 Resp: 20 SpO2: 95 % O2 Device: None (Room air) Weight: 213 lbs 14.4 oz Physical Exam Constitutional: Appearance: He is not toxic-appearing or diaphoretic. Cardiovascular: Rate and Rhythm: Rhythm irregular. Pulmonary: Effort: Pulmonary effort is normal. Breath sounds: Examination of the left-middle field reveals decreased breath sounds and rales. Examination of the left-lower field reveals decreased breath sounds and rales. Decreased breath sounds and rales present. Abdominal: General: Abdomen is flat. Palpations: Abdomen is soft. Musculoskeletal: Right lower leg: No edema. Left lower leg: No edema. Neurological: Mental Status: He is alert. Psychiatric: Attention and Perception: Attention normal. Mood and Affect: Affect is angry. Speech: Speech normal. Behavior: Behavior is agitated. Thought Content: Thought content normal. Cognition and Memory: Cognition is impaired. Medical Decision Making 75 MINUTES SPENT BY ME on the date of service doing chart review, history, exam, documentation & further activities per the note. Data I have personally reviewed the following data over the past 24 hrs: 18.5 (H) \ 13.1 (L) / 574 (H) 134 (L) 93 (L) 30.1 (H) / 221 (H) 4.0 29 1.49 (H) \ ALT: 118 (H) AST: 65 (H) AP: 92 TBILI: 0.6 ALB: 3.4 (L) TOT PROTEIN: 6.9 LIPASE: 60 Trop: 24 (H) BNP: N/A TSH: N/A T4: N/A A1C: 8.4 (H) Procal: 0.07 CRP: N/A Lactic Acid: 1.4 Imaging results reviewed over the past 24 hrs: Recent Results (from the past 24 hour(s)) Chest XR, PA & LAT Narrative CHEST TWO VIEWS 10/14/2023 1:12 PM HISTORY: Chest pain. COMPARISON: CT chest 08/16/2023. Impression IMPRESSION: New finding of small-moderate left pleural fluid. New consolidation or atelectasis at the left lung base. Obscured cardiac silhouette. Right lung appears clear. ELO DIETRICH MD SYSTEM ID: [id number] INUOUS CRUSHER OPERATOR Associated attestation - Michelle Eckert MD - 10/15/2023 3:12 PM CONTINUOUS CRUSHER OPERATOR Physician Attestation I have reviewed and discussed with the advanced practice provider their history, physical and plan for Ilan Alaniz. I did not participate in a shared visit; this is an advanced practice provider only visit. Michelle Eckert MD Date of Service (when I saw the patient): I did not personally see this patient on 10/14/2023. documented in this encounter Procedure Notes * Carter Ellis MD - 10/16/2023 9:05 AM CSTAssociated Order(s): EP Cardioversion External [facility] Procedure: EP Cardioversion External Date/Time: 10/16/2023 8:35 AM Performed by: Carter Ellis MD Authorized by: Merlyn Lyon CNP [employer] Site Marked: Yes Prior Images Obtained and Reviewed: Yes Required items: Required blood products, implants, devices and special equipment available Patient identity confirmed: Verbally with patient Patient was reevaluated immediately before administering moderate or deep sedation or anesthesia Confirmation Checklist: Patient's identity using two indicators Time out: Immediately prior to the procedure a time out was called [place] Protocol: the Joint Commission [place] Protocol was followed Preparation: Patient was prepped and draped in usual sterile fashion ANESTHESIA Anesthesia was administered and monitored by anesthesiology. See anesthesia documentation for details. SEDATION Patient Sedated: Yes Vital signs: Vital signs monitored during sedation PROCEDURE DETAILS Cardioversion basis: elective Indications: failure of anti-arrhythmic medications Pre-procedure rhythm: atrial fibrillation Patient position: patient was placed in a supine position Chest area: chest area exposed Electrodes: pads Electrodes placed: anterior-posterior Number of attempts: 1 Details of Attempts: DC Cardioversion Procedure Note: Informed consent obtained. Pads placed in AP position. Anesthesia used, please see their documentation. Synchronized, biphasic 120J shock x 1 delivered and successful in converting atrial fibrillation tonormal sinus rhythm without bradycardia or pauses. No apparent complications. INUOUS CRUSHER OPERATOR documented in this encounter Consult Notes * Rachel Palomares RN - 10/16/2023 3:21 PM CST Care Management Discharge Note Discharge Date: 10/16/2023 Discharge Disposition: (to be determined pending therapy recommendations ;) Discharge Services: resumption of [facility] Homecare RN+PT Discharge DME: n/a Discharge Transportation: family or friend will provide Private pay costs discussed: Not applicable Does the patient's insurance plan have a 3 day qualifying hospital stay waiver? No PAS Confirmation Code: n/a Patient/family educated on Medicare website which has current facility and service quality ratings:no Education Provided on the Discharge Plan: yes Persons Notified of Discharge Plans: Patient and Spouse Patient/Family in Agreement with the Plan: other (see comments) Handoff Referral Completed: Yes Additional Information: Orthopaedic Nurse checked in with patient and spouse at the bedside. Patient is cleared for discharge to home with resumption of homecare RN and PT should be added on. Spouse noted that [facility] has the patient scheduled for this Thursday 10/19. Orthopaedic Nurse to send a message to the homecare Liaison regarding PT being added. No further needs identified. Rachel Palomares RN, BSN, ACM Care Transitions Specialist [facility] Care Transitions Specialist [id number] [place] [id number] Office: [phone] [facility] INUOUS CRUSHER OPERATOR * Jane Norton PA-C - 10/16/2023 11:02 AM CSTAssociated Order(s): GASTROENTEROLOGY IP CONSULT [facility] Gastroenterology Consultation Ilan Alaniz [address] [place] [id number] 83 year old male Admission Date/Time: 10/14/2023 Primary Care Provider: Merrill Mejia Referring / Attending Physician: Dr. Gail Post We were asked to see the patient in consultation by Dr. Gail Post for evaluation of elevated LFTs. CC: weakness HPI: Ilan Alaniz is a 83 year old male who has PMHx of hypertension, a- fib anticoagulated on Xarelto, type 2 diabetes, stage 3A chronic kidney disease and dyslipidemia, who pwas admitted on 10/14 with progressive weakness, persistent chest pain and exertional shortness of breath. Reported having difficulty getting out of bed, along with multiple episodes of profound hypoglycemia with glucuse running in 20-30s. He endorses being diaphoretic and clammy during these hypoglycemic episodes and reportedly taking more insulin than recommended at bedtime. Has been seen by cardiology and also diagnosed with pneumonia and leukocytosis and treated with plans to discharge today. ROS: A comprehensive ten point review of systems was negative aside from those in mentioned in the HPI. PAST MED HX: I have reviewed this patient's medical history and updated it with pertinent information if needed. Past Medical History: Diagnosis Date Hypertrophy of prostate with urinary obstruction and other lower urinary tract symptoms (LUTS) Unspecified essential hypertension MEDICATIONS: Prior to Admission Medications Prescriptions Last Dose Informant Patient Reported? Taking? INSULIN GLARGINE 100 UNIT/ML pen 10/13/2023 at 50 units in PM Spouse/Significant Other Yes Yes Sig: Inject Subcutaneous at bedtime 10/10/23: 82 units 10/11/23: 60 units 10/12/23: 50 units 10/13/23: 50 units Multiple Vitamins-Minerals (ICAPS AREDS 2 PO) 10/14/2023 at AM Spouse/Significant Other Yes Yes Sig: Take 1 tablet by mouth 2 times daily Vitamin D3 (VITAMIN D, CHOLECALCIFEROL,) 25 mcg (1000 units) tablet 10/14/2023 at AM Spouse/Significant Other Yes Yes Sig: Take 25 mcg by mouth daily amLODIPine (NORVASC) 2.5 MG tablet 10/13/2023 at HS Spouse/Significant Other Yes Yes Sig: Take 5 mg by mouth at bedtime atenolol (TENORMIN) 50 MG tablet 10/13/2023 at HS Spouse/Significant Other No Yes Sig: Take 1 tablet (50 mg) by mouth daily for 30 days atenolol-chlorthalidone (TENORETIC) 50-25 MG tablet 10/14/2023 at AM Spouse/Significant Other Yes Yes Sig: Take 1 tablet by mouth every morning eszopiclone (LUNESTA) 2 MG tablet Past Month at PM Spouse/Significant Other Yes Yes Sig: Take 2 mg by mouth nightly as needed for sleep gabapentin (NEURONTIN) 100 MG capsule 10/13/2023 at HS Spouse/Significant Other Yes Yes Sig: Take 100 mg by mouth at bedtime lidocaine (LIDODERM) 5 % patch Unknown at PRN Spouse/Significant Other Yes Yes Sig: Place 1 patch onto the skin daily as needed for moderate pain (spasms) Applies to chest/shoulder/neck, also to feet losartan (COZAAR) 100 MG tablet 10/13/2023 at dinner Spouse/Significant Other Yes Yes Sig: Take 100 mg by mouth daily magnesium oxide (MAG-OX) 400 MG tablet 10/14/2023 at AM Spouse/Significant Other Yes Yes Sig: Take 400 mg by mouth daily metFORMIN (GLUCOPHAGE XR) 500 MG 24 hr tablet 10/14/2023 at AM Spouse/Significant Other Yes Yes Sig: Take 500 mg by mouth every morning mirabegron (MYRBETRIQ) 50 MG 24 hr tablet 10/13/2023 at dinner Spouse/Significant Other Yes Yes Sig: Take 50 mg by mouth daily multivitamin (CENTRUM SILVER) tablet 10/14/2023 at AM Spouse/Significant Other Yes Yes Sig: Take 1 tablet by mouth daily nitroGLYcerin (NITROSTAT) 0.4 MG sublingual tablet Unknown at PRN Spouse/Significant Other No Yes Sig: For chest pain place 1 tablet under the tongue every 5 minutes for 3 doses. If symptoms persist 5 minutes after 1st dose call 911. oxyCODONE (ROXICODONE) 5 MG tablet Unknown at PRN, has home supply Spouse/Significant Other Yes Yes Sig: Take 5 mg by mouth every 6 hours as needed for severe pain rivaroxaban ANTICOAGULANT (XARELTO) 20 MG TABS tablet 10/13/2023 at dinner Spouse/Significant Other No Yes Sig: Take 1 tablet (20 mg) by mouth daily (with dinner) rivaroxaban ANTICOAGULANT (XARELTO) 20 MG TABS tablet at duplicate Spouse/Significant Other No No Sig: Take 1 tablet (20 mg) by mouth daily (with dinner) for 30 days rosuvastatin (CRESTOR) 40 MG tablet 10/13/2023 at HS Spouse/Significant Other No Yes Sig: Take 1 tablet (40 mg) by mouth at bedtime Facility-Administered Medications: None ALLERGIES: Allergies Allergen Reactions Animal Dander Unknown and Other (See Comments) sneezing No Known Drug Allergy SOCIAL HISTORY: Social History Tobacco Use Smoking status: Never Substance Use Topics Alcohol use: Yes FAMILY HISTORY: No family history on file. PHYSICAL EXAM: General alert, oriented and comfortable Vital Signs with Ranges Temp: 97.4 ??F (36.3 ??C) Temp src: Oral BP: 118/73 Pulse: 87 Resp: 18 SpO2: 98 % O2 Device: None (Room air) Oxygen Delivery: 4 LPM No intake/output data recorded. Constitutional: healthy, alert, and no distress Cardiovascular: negative, PMI normal. No lifts, heaves, or thrills. RRR. No murmurs, clicks gallopsor rub Respiratory: negative, Percussion normal. Good diaphragmatic excursion. Lungs clear Abdomen: Abdomen soft, non-tender. BS normal. No masses, organomegaly ADDITIONAL COMMENTS: I reviewed the patient's new clinical lab test results. Recent Labs Lab Test 10/16/23 0608 10/15/23 0715 10/14/23 1253 WBC 10.7 15.3* 18.5* HGB 12.6* 12.4* 13.1* MCV 94 92 94 PLT 493* 566* 574* INR 3.26* -- -- Recent Labs Lab Test 10/16/23 0608 10/15/23 0715 10/14/23 1253 POTASSIUM 3.9 3.8 4.0 CHLORIDE 103 100 93* CO2 27 26 29 BUN 27.2* 26.1* 30.1* ANIONGAP 11 12 12 Recent Labs Lab Test 10/16/23 0608 10/15/23 0715 10/14/23 1253 10/01/23 1333 08/16/23 1717 08/24/15 0740 08/23/15 1341 08/23/15 1138 ALBUMIN 2.9* 3.1* 3.4* -- -- < > -- 3.7 BILITOTAL 0.3 0.5 0.6 -- -- < > -- 1.4* ALT 240* 123* 118* -- -- < > -- 49 AST 193* 64* 65* -- -- < > -- 20 PROTEIN -- -- -- 20* Negative -- 10* -- LIPASE -- -- 60 -- -- -- -- 105 < > = values in this interval not displayed. I reviewed the patient's new imaging results. CONSULTATION ASSESSMENT AND PLAN: Ilan Alaniz is a 83 year old male with a past medical history of hypertension, a-fib anticoagulated on Xerelto, type 2 diabetes, stage 3A chronic kidney disease and dyslipidemia registered observation on 10/14/2023. He presents with multiple concerns including decreased energy, persistent chest pain, recurrent hypoglycemia with mismanagement of insulin, and exertional dyspnea and found to have elevated liver function tests. Elevated LFTs ALT/AST 123/64>240/193 Tbili 0.3 ALP 107. Normal in 2019 no results between INR 3.26 but on Xarelto which is likely contributing Abdominal ultrasound notes hepatic steatosis with no biliary dilation Acute hepatitis panel pending Source of elevation in LFTs likely due to pneumonia and underlying hepatic steatosis. Also started on azithromycin which has side effect of hepatotoxicity, so certainly a possibility of acute elevation. Less likely acute viral hepatitis vs autoimmune hepatitis. - recommend to have LFTs checked in 1-2 weeks - consider alternative to azitrhomycin as known to be hepatotoxic - Check AGATA and ASMA outpatient- as to not delay discharge - will need fibroscan of liver to evaluate for fibrosis outpatinet - avoid alcohol [facility] Office: [phone] (Dr. Dinh) (Jane Norton PA-C) INUOUS CRUSHER OPERATOR Associated attestation - Sanya Dinh MD - 10/28/2023 7:30 AM CONTINUOUS CRUSHER OPERATOR History and physical exam was done independently.Patient's medical records imaging studies blood work and labs reviewed personally. On his physical exam patient is hemodynamically stable. Chest Normal breath sounds both sides. Cardiac exam unremarkable S1-S2 audible. Abdomen soft minimally distended good bowel sounds. Neurological exam nonfocal. Very pleasant 83-year-old gentleman with history of hypertension A-fib on Xarelto history of type 2diabetes stage III chronic kidney disease Lipritin dyslipidemia who was admitted due to significantweakness and decrease in energy persistent chest pain recurrent hypoglycemia exertional dyspnea wasfound to have elevated liver function test. Patient's INR is 3.2 ultrasound of the abdomen showed fatty infiltration of liver no other significant abnormal findings. Agree with the above-mentioned plan from my associate continue on supportive care continue on further blood work to check for causes of acute hepatitis most likely differential can include sepsis patient has underlying pneumonia patient is currently on azithromycin patient can have side effect of antibiotics. At this point I will recommend to repeat labs continue on supportive care further evaluation with FibroScan as an outpatient. GI will continue to follow along. Thank you very much for letting us participate in his care. Sanya Dinh MD FACP [facility]ESFA[facility] OTOOLE * Sharon Crain, AUTO MECHANICS INSTRUCTOR - 10/15/2023 4:23 PM CSTAssociated Order(s): CARE MANAGEMENT / SOCIAL WORK IP CONSULT Care Management Initial Consult General Information Assessment completed with: (pt's ), Type of CM/SW Visit: Initial Assessment Primary Care Provider verified and updated as needed: Readmission within the last 30 days: unable to assess Reason for Consult: discharge planning Advance Care Planning: Communication Assessment Patient's communication style: spoken language (Hong Konger or Bilingual) Hearing Difficulty or Deaf: yes Cognitive Cognitive/Neuro/Behavioral: WDL Level of Consciousness: alert Arousal Level: opens eyes spontaneously Orientation: oriented x 4 Mood/Behavior: calm, cooperative Best Language: 0 - No aphasia Speech: clear, spontaneous, logical Living Environment: People in home: (pt and ) Current living Arrangements: house Able to return to prior arrangements: (to be determined) Family/Social Support: Care provided by: self, other (see comments) (Pts helps him with medications and helps otherwise as needed) Provides care for: no one Marital Status: Description of Support System: Supportive Current Resources: Patient receiving home care services: (Pt is signed up for [facility] ; has done intake) Community Resources: None Equipment currently used at home: Supplies currently used at home: None Employment/Financial: Employment Status: Financial Concerns: Does the patient's insurance plan have a 3 day qualifying hospital stay waiver? No Lifestyle & Psychosocial Needs: Social Determinants of Health Food Insecurity: Not on file Depression: Not on file Housing Stability: Not on file Tobacco Use: Not on file (08/26/2015) Financial Resource Strain: Not on file Alcohol Use: Not on file Transportation Needs: Not on file Physical Activity: Not on file Interpersonal Safety: Not on file Stress: Not on file Social Connections: Not on file Functional Status: Prior to admission patient needed assistance: Dependent ADLs:: Independent Dependent IADLs:: Independent Mental Health Status: Chemical Dependency Status: Values/Beliefs: Spiritual, Cultural Beliefs, Scientologist Practices, Values that affect care: Additional Information: Pt is an 83 year old male who was admitted to hospital with concerns of decreased energy and persistent chest pain. Orthopaedic Nurse met with pt at bedside. Introduced self and role. Pt is asleep. Orthopaedic Nurse spoke with pt's .Introduced self and role. Pt's states that they live in a home where there is everything on one level. She states the only thing not on the main level is pt's office which is downstairs. Pt's states she tries to get pt to use walker at night when getting up but typically pt does not use walker. Pt had an intake this past Saturday with [facility] home care pr pt's for SN[facility]. She states they would likely be interested in PT/OT being added on if it were to be recommended by therapy. Pt's aware that care management is awaiting therapy recommendations. Orthopaedic Nurse informed her if theyrecommend anything greater than home care then care management will stop by to discuss with pt and her. Pt's states no further questions or concerns at this time. SHELBI Pineda Social Work [facility] INUOUS CRUSHER OPERATOR * Tian Malik MD - 10/15/2023 11:[address] [facility] Cardiology Consultation Date of Admission: 10/14/2023 Assessment & Plan Ilan Alaniz is a 83 year old male who was admitted on 10/14/2023 with A- fib with RVR, community-acquired pneumonia and fatigue. Atrial fibrillation with rapid ventricular response He was noted to be in atrial fibrillation early September. He has been on Xarelto since September 12 uninterrupted. I do not believe he was on rate lowering agents. Given symptomatic nature of atrial fibrillation, recommend cardioversion without CAIN. Will initiate metoprolol for rate lowering purposes. Continue Xarelto for anticoagulation 2. History of atypical chest pain Per the admission note, he reported chest pain recently although he did not share that with me. Again his troponin is trivially elevated without significant delta. This is most likely from demand. Recent stress test showed no evidence of ischemia. His echocardiogram shows normal LV systolic function and wall motion. Therefore my suspicion for significant underlying coronary disease is low. However, if he continues to have chest pain following rastafarian of sinus rhythm, will consider coronary angiography. 3. Community-acquired pneumonia 4. Diabetes with recurrent hypoglycemia Tian Malik MD, [facility] High complexity Tian Malik MD, , MD Primary Care Physician Merrill Mejia Reason for Consult Reason for consult: I was asked by hospital medicine team to evaluate this patient for atrial fibrillation with RVR. History of Present Illness Ilan Alaniz is a 83 year old male with history of hypertension, diabetes, chronic pain, hyperlipidemia, probable coronary disease based on coronary calcification noted on CT scan and recentlydiagnosed atrial fibrillation who is admitted with fatigue, shortness of breath. He was evaluated emergency department August 16, 2023 with complaints of chest pain. He developedchest discomfort radiating to the neck and left upper chest wall rested. He subsequently came to the emergency department where he was noted to be quite hypertensive. Electrocardiogram demonstrated nonspecific ST-T changes. His troponin was trivially elevated but there is no significant delta. CTA of the aorta showed no evidence of acute aortic pathology but coronary calcification was noted. He subsequent underwent stress test which was negative for inducible ischemia. He also had an echocardiogram which demonstrated normal LV function. On September 12, the patient was noted to be in atrial fibrillation with RVR by his primary care doctor. He was initiated on Xarelto. He has been taking Xarelto for the last 4 weeks uninterrupted. He came to the emergency department with complaints of decreased energy, shortness of breath and recurrent hypoglycemia. He does not report recurrent chest pain to me. He was diagnosed with community-acquired pneumonia is currently on on biotics. ECG also shows atrial fibrillation with RVR. Past Medical History Past Medical History: Diagnosis Date Hypertrophy of prostate with urinary obstruction and other lower urinary tract symptoms (LUTS) Unspecified essential hypertension Past Surgical History Past Surgical History: Procedure Laterality Date [facility] NONSPECIFIC PROCEDURE 2004 Cholecystectomy [facility] NONSPECIFIC PROCEDURE Appendectomy [facility] NONSPECIFIC PROCEDURE Lysis of adhesions for bowel obstruction (twice) Prior to Admission Medications Prior to Admission Medications Prescriptions Last Dose Informant Patient Reported? Taking? INSULIN GLARGINE 100 UNIT/ML pen 10/13/2023 at 50 units in PM Spouse/Significant Other Yes Yes Sig: Inject Subcutaneous at bedtime 10/10/23: 82 units 10/11/23: 60 units 10/12/23: 50 units 10/13/23: 50 units Multiple Vitamins-Minerals (ICAPS AREDS 2 PO) 10/14/2023 at AM Spouse/Significant Other Yes Yes Sig: Take 1 tablet by mouth 2 times daily Vitamin D3 (VITAMIN D, CHOLECALCIFEROL,) 25 mcg (1000 units) tablet 10/14/2023 at AM Spouse/Significant Other Yes Yes Sig: Take 25 mcg by mouth daily amLODIPine (NORVASC) 2.5 MG tablet 10/13/2023 at HS Spouse/Significant Other Yes Yes Sig: Take 5 mg by mouth at bedtime atenolol (TENORMIN) 50 MG tablet 10/13/2023 at HS Spouse/Significant Other No Yes Sig: Take 1 tablet (50 mg) by mouth daily for 30 days atenolol-chlorthalidone (TENORETIC) 50-25 MG tablet 10/14/2023 at AM Spouse/Significant Other Yes Yes Sig: Take 1 tablet by mouth every morning eszopiclone (LUNESTA) 2 MG tablet Past Month at PM Spouse/Significant Other Yes Yes Sig: Take 2 mg by mouth nightly as needed for sleep gabapentin (NEURONTIN) 100 MG capsule 10/13/2023 at HS Spouse/Significant Other Yes Yes Sig: Take 100 mg by mouth at bedtime lidocaine (LIDODERM) 5 % patch Unknown at PRN Spouse/Significant Other Yes Yes Sig: Place 1 patch onto the skin daily as needed for moderate pain (spasms) Applies to chest/shoulder/neck, also to feet losartan (COZAAR) 100 MG tablet 10/13/2023 at dinner Spouse/Significant Other Yes Yes Sig: Take 100 mg by mouth daily magnesium oxide (MAG-OX) 400 MG tablet 10/14/2023 at AM Spouse/Significant Other Yes Yes Sig: Take 400 mg by mouth daily metFORMIN (GLUCOPHAGE XR) 500 MG 24 hr tablet 10/14/2023 at AM Spouse/Significant Other Yes Yes Sig: Take 500 mg by mouth every morning mirabegron (MYRBETRIQ) 50 MG 24 hr tablet 10/13/2023 at dinner Spouse/Significant Other Yes Yes Sig: Take 50 mg by mouth daily multivitamin (CENTRUM SILVER) tablet 10/14/2023 at AM Spouse/Significant Other Yes Yes Sig: Take 1 tablet by mouth daily nitroGLYcerin (NITROSTAT) 0.4 MG sublingual tablet Unknown at PRN Spouse/Significant Other No Yes Sig: For chest pain place 1 tablet under the tongue every 5 minutes for 3 doses. If symptoms persist 5 minutes after 1st dose call 911. oxyCODONE (ROXICODONE) 5 MG tablet Unknown at PRN, has home supply Spouse/Significant Other Yes Yes Sig: Take 5 mg by mouth every 6 hours as needed for severe pain rivaroxaban ANTICOAGULANT (XARELTO) 20 MG TABS tablet 10/13/2023 at dinner Spouse/Significant Other No Yes Sig: Take 1 tablet (20 mg) by mouth daily (with dinner) rivaroxaban ANTICOAGULANT (XARELTO) 20 MG TABS tablet at duplicate Spouse/Significant Other No No Sig: Take 1 tablet (20 mg) by mouth daily (with dinner) for 30 days rosuvastatin (CRESTOR) 40 MG tablet 10/13/2023 at HS Spouse/Significant Other No Yes Sig: Take 1 tablet (40 mg) by mouth at bedtime Facility-Administered Medications: None Current Facility-Administered Medications Medication Dose Route Frequency azithromycin 250 mg Intravenous Q24H [id number] 2 g Intravenous Q24H gabapentin 100 mg Oral At Bedtime insulin aspart 1-7 Units Subcutaneous TID AC insulin aspart 1-5 Units Subcutaneous At Bedtime insulin glargine 30 Units Subcutaneous At Bedtime losartan 100 mg Oral Daily with supper metoprolol succinate ER 25 mg Oral Daily mirabegron 50 mg Oral Daily rivaroxaban ANTICOAGULANT 20 mg Oral Daily with supper senna-docusate 1 tablet Oral BID Or senna-docusate 2 tablet Oral BID sodium chloride (PF) 3 mL Intracatheter Q8H Current Facility-Administered Medications Medication Last Rate Allergies Allergies Allergen Reactions Animal Dander Unknown and Other (See Comments) sneezing No Known Drug Allergy Social History reports that he has never smoked. He does not have any smokeless tobacco history on file. He reports current alcohol use. Family History Review of Systems A comprehensive review of system was performed and is negative other than that noted in the HPI or here. Physical Exam Vital Signs with Ranges Temp: [97.2 ??F (36.2 ??C)-99 ??F (37.2 ??C)] 98.7 ??F (37.1 ??C) Pulse: [79-119] 93 Resp: [10-24] 20 BP: (104-138)/(47-99) 104/47 SpO2: [94 %-98 %] 95 % Wt Readings from Last 4 Encounters: 10/15/23 96.3 kg (212 lb 3.2 oz) 09/23/23 97.1 kg (214 lb) 06/10/16 95.3 kg (210 lb) 08/23/15 95.3 kg (210 lb) No intake/output data recorded. Vitals: BP 104/47 (BP Location: Left arm) Pulse 93 Temp 98.7 ??F (37.1 ??C) (Oral) Resp 20 Ht 1.854 m (6' 1) Wt 96.3 kg (212 lb 3.2 oz) SpO2 95% BMI 28.00 kg/m?? Physical Exam: General - Alert and oriented to time place and person in no acute distress Eyes - No scleral icterus HEENT - Neck supple, moist mucous membranes Cardiovascular -regular rhythm Extremities - There is no edema Respiratory -clear to auscultation bilateral Skin - No pallor or cyanosis Gastrointestinal - Non tender and non distended without rebound or guarding Psych - Appropriate affect Neurological - No gross motor neurological focal deficits No lab results found in last 7 days. Invalid input(s): TROPONINIES Recent Labs Lab 10/15/23 0739 10/15/23 0715 10/15/23 0213 10/14/23 1742 10/14/23 1253 WBC -- 15.3* -- -- 18.5* HGB -- 12.4* -- -- 13.1* MCV -- 92 -- -- 94 PLT -- 566* -- -- 574* NA -- 138 -- -- 134* POTASSIUM -- 3.8 -- -- 4.0 CHLORIDE -- 100 -- -- 93* CO2 -- 26 -- -- 29 BUN -- 26.1* -- -- 30.1* CR -- 1.41* -- -- 1.49* GFRESTIMATED -- 49* -- -- 46* ANIONGAP -- 12 -- -- 12 AZUL -- 9.0 -- -- 9.2 GLC 122* 120* 171* < > 201* ALBUMIN -- 3.1* -- -- 3.4* PROTTOTAL -- 6.4 -- -- 6.9 BILITOTAL -- 0.5 -- -- 0.6 ALKPHOS -- 87 -- -- 92 ALT -- 123* -- -- 118* AST -- 64* -- -- 65* LIPASE -- -- -- -- 60 < > = values in this interval not displayed. No results for input(s): CHOL, HDL, LDL, TRIG, CHOLHDLRATIO in the last 56307 hours. Recent Labs Lab 10/15/23 0715 10/14/23 1253 WBC 15.3* 18.5* HGB 12.4* 13.1* HCT 36.9* 40.0 MCV 92 94 PLT 566* 574* No results for input(s): PH, PHV, PO2, PO2V, SAT, PCO2, PCO2V, HCO3, HCO3V in thelast 168 hours. No results for input(s): NTBNPI, NTBNP in the last 168 hours. No results for input(s): DD in the last 168 hours. No results for input(s): SED, CRP in the last 168 hours. Recent Labs Lab 10/15/23 0715 10/14/23 1253 PLT 566* 574* No results for input(s): TSH in the last 168 hours. No results for input(s): COLOR, APPEARANCE, URINEGLC, URINEBILI, URINEKETONE, SG, UBLD, URINEPH, PROTEIN, UROBILINOGEN, NITRITE, LEUKEST, RBCU, WBCU in the last 168 hours. Imaging: Recent Results (from the past 48 hour(s)) Chest XR, PA & LAT Narrative CHEST TWO VIEWS 10/14/2023 1:12 PM HISTORY: Chest pain. COMPARISON: CT chest 08/16/2023. Impression IMPRESSION: New finding of small-moderate left pleural fluid. New consolidation or atelectasis at the left lung base. Obscured cardiac silhouette. Right lung appears clear. ELO DIETRICH MD SYSTEM ID: [id number] XR Chest 2 Views Narrative CHEST TWO VIEWS 10/15/2023 8:09 AM HISTORY: follow up possible pneumonia COMPARISON: 10/14/2023. Impression IMPRESSION: Stable cardiac silhouette which is partially obscured. Similar opacification of the left lung base which is favored secondary to a moderate-sized left pleural effusion with underlying consolidation not excluded. Similar calcified granuloma of the right lung base. No discernible pneumothorax. No acute displaced fracture. PRECIOUS YOON MD Echo: No results found for this or any previous visit (from the past 4320 hour(s)). Clinically Significant Risk Factors Present on Admission # Hypoalbuminemia: Lowest albumin = 3.1 g/dL at 10/15/2023 7:15 AM, will monitor as appropriate # Drug Induced Coagulation Defect: home medication list includes an anticoagulant medication # Hypertension: Noted on problem list # DMII: A1C = 8.4 % (Ref range: <5.7 %) within past 6 months # Overweight: Estimated body mass index is 28 kg/m?? as calculated from the following: Height as of this encounter: 1.854 m (6' 1). Weight as of this encounter: 96.3 kg (212 lb 3.2 oz). INUOUS CRUSHER OPERATOR documented in this encounter ED Notes * Cyndee Miller RN - 10/14/2023 5:07 PM CST [facility] ED Nurse Handoff Report ED Chief complaint: Irregular Heart Beat and Chest Pain ED Diagnosis: Final diagnoses: Hypoglycemia Community acquired pneumonia, unspecified laterality Episode of confusion Chest pain, unspecified type Weakness History of atrial fibrillation Code Status: Full Code Allergies: Allergies Allergen Reactions Animal Dander Unknown and Other (See Comments) sneezing No Known Drug Allergy Patient Story: Patient presented with chest pain and shortness of breath. He reports that since then, he has been experiencing increased fatigue, chest pain, increased shortness of breath upon exertion, diaphoresis, hypoglycemia with his BG at 27, and was in AFIB. He notes that his chest pain begantoday while laying in bed and is still present. Focused Assessment: vital signs, labs, x-ray Treatments and/or interventions provided: fluids and antibiotics Patient's response to treatments and/or interventions: VS stable To be done/followed up on inpatient unit: labs, vital signs, meds Does this patient have any cognitive concerns?: Short term memory loss Activity level - Baseline/Home: Stand with Assist Activity Level - Current: Stand with Assist Patient's Preferred language: Hong Konger Retail Account Specialist Needed?: No Isolation: None Infection: Not Applicable Patient tested for COVID 19 prior to admission: YES Bariatric?: No Vital Signs: Vitals: 10/14/23 1500 10/14/23 1530 10/14/23 1600 10/14/23 1630 BP: 120/82 119/70 126/84 124/83 Pulse: 98 98 93 108 Resp: 19 06 22 23 Temp: TempSrc: SpO2: Cardiac Rhythm:Cardiac Rhythm: Atrial fibrillation Was the PSS-3 completed: Yes What interventions are required if any? Family Comments: family at bedside OBS brochure/video discussed/provided to patient/family: [place] of person given brochure if not patient: Relationship to patient: For the majority of the shift this patient's behavior was Green. Behavioral interventions performed were . ED NURSE PHONE NUMBER: *[id number] INUOUS CRUSHER OPERATOR * David Ahn RN - 10/14/2023 12:40 PM CST Patient reports having known a flutter with cardiac procedure planned tomorrow. Here for worsening chest pain and shortness of breath. Triage Assessment (Adult) Row Name 10/14/23 1240 Triage Assessment Airway WDL WDL Respiratory WDL Respiratory WDL WDL Skin Circulation/Temperature WDL Skin Circulation/Temperature WDL WDL Cardiac WDL Cardiac WDL X Peripheral/Neurovascular WDL Peripheral Neurovascular WDL WDL Cognitive/Neuro/Behavioral WDL Cognitive/Neuro/Behavioral WDL WDL INUOUS CRUSHER OPERATOR * Baldev Burton, - 10/14/2023 12:38 PM CST PIT/Triage Evaluation Patient presented with chest pain and shortness of breath. The patient states that on 08/16/23, he began experiencing a tremendous central chest pain that radiated to his left chest and shoulder while walking up some stairs. He notes he was seen on the same day at [facility] and was given oxycodone which increased his glucose levels. He reports that since then, he has been experiencing increased fatigue, chest pain, increased shortness of breath upon exertion, diaphoresis, hypoglycemia with his BG at 27, and was in AFIB. He notes that his chest pain began today while laying in bed and is still present. His daughter notes that the patient is undergoing a cardiac ablation tomorrow phyllis mckeon. He is on Xarelto with no missed doses. He is seeing Dr. Patel as his master black belt. Exam is notable for: General: Patient in mild distress. Alert and cooperative with exam. Normal mentation HEENT: NC/AT. Conjunctiva without injection or scleral icterus. External ears normal. Respiratory: Breathing comfortably on room air CV: Normal rate, all extremities well perfused GI: Non-distended abdomen Skin: Warm, dry, no rashes/open wounds on exposed skin Musculoskeletal: No obvious deformities Neuro: Alert, answers questions appropriately. No gross motor deficits Appropriate interventions for symptom management were initiated if applicable. Appropriate diagnostic tests were initiated if indicated. Important information for subsequent clinician: Labs, EKG, and chest x-ray ordered. I briefly evaluated the patient and developed an initial plan of care. I discussed this plan and explained that this brief interaction does not constitute a full evaluation. Patient/family understands that they should wait to be fully evaluated and discuss any test results with another clinician prior to leaving the hospital. Baldev Burton, 10/14/23 1249 INUOUS CRUSHER OPERATOR * Ilan Alves MD - 10/14/2023 12:22 PM CST History Chief Complaint: Irregular Heart Beat and Chest Pain HPI Ilan Alaniz is a 83 year old male who presents with multiple concerns. Most importantly it sound like he had some chest pain that has been coming and going for the last 2 months, initially was seen at an outside hospital, given prednisone for an autoimmune disease at some point thereafter. Specific reason for today's visit is decreased energy and persistent chest pain. Notably the patient has had multiple episodes where the patient's blood sugar has been found to be in the 20s or 30s early in the morning and the patient himself is cold and clammy and altered and diaphoretic. He typically resolves with glucose and 1 time EMS was called. The family also uses glucose tablets that the diabetic friend recommended every time he gets low, but they have not sought medical care specific issue since. It does seem like he is self administering his insulin subcutaneouslyand is unable to tell me how or why he decides on the amount to give. Family is concerned that he is dosing random amounts to try and fix his sugar, and he seems to be perseverating on the idea that his blood sugar should be around 50. He and the family do not seem to grasp the severity of his hypoglycemic episodes and the patient still is in control of all of his own insulin dosing. They did at 1 point called her primary care doctor who asked the patient to dramatically lower the dose he wasgiven, but is unclear if this has taken place Independent Historian: Yes, daughter and are at the bedside and give supportive history to the above. Review of External Notes: Yesterday reviewed the patient's ER note from 07 October of this year where he was seen at [facility] for A-fib. Allergies: Animal Dander No Known Drug Allergy Medications: ACCU-CHEK GUIDE test strip atenolol (TENORMIN) 50 MG tablet atenolol-chlorthalidone (TENORETIC) 50-25 MG tablet gabapentin (NEURONTIN) 100 MG capsule INSULIN GLARGINE 100 UNIT/ML pen lidocaine (LIDODERM) 5 % patch losartan (COZAAR) 100 MG tablet metFORMIN (GLUCOPHAGE XR) 500 MG 24 hr tablet mirabegron (MYRBETRIQ) 50 MG 24 hr tablet nitroGLYcerin (NITROSTAT) 0.4 MG sublingual tablet predniSONE (DELTASONE) 20 MG tablet rivaroxaban ANTICOAGULANT (XARELTO) 20 MG TABS tablet rivaroxaban ANTICOAGULANT (XARELTO) 20 MG TABS tablet rosuvastatin (CRESTOR) 40 MG tablet Past Medical History: Past Medical History: Diagnosis Date Hypertrophy of prostate with urinary obstruction and other lower urinary tract symptoms (LUTS) Unspecified essential hypertension Past Surgical History: Past Surgical History: Procedure Laterality Date [facility] NONSPECIFIC PROCEDURE 2004 Cholecystectomy [facility] NONSPECIFIC PROCEDURE Appendectomy [facility] NONSPECIFIC PROCEDURE Lysis of adhesions for bowel obstruction (twice) Family History: family history is not on file. Social History: reports that he has never smoked. He does not have any smokeless tobacco history on file. He reports current alcohol use. PCP: Merrill Mejia Physical Exam Patient Vitals for the past 24 hrs: BP Temp Temp src Pulse Resp SpO2 10/14/23 1239 114/52 97.2 ??F (36.2 ??C) Temporal 79 18 98 % Physical Exam Vitals: reviewed by me General: Pt seen on [facility], pleasant, cooperative, and alert to conversation. Non sequituranswers, possible dementia. Eyes: Tracking well, clear conjunctiva BL ENT: MMM, midline trachea. Lungs: No tachypnea, no accessory muscle use. No respiratory distress. CV: Rate as above MSK: no joint effusion. No evidence of trauma Skin: No rash Neuro: Clear speech and no facial droop. Psych: Not RIS, no e/o AH/VH Emergency Department Course ECG results from 10/14/23 EKG 12 lead Value Systolic Blood Pressure Diastolic Blood Pressure Ventricular Rate 103 Atrial Rate AZ Interval QRS Duration 86 QT 290 QTc 379 P Potter R AXIS -40 T Potter 100 Interpretation ECG Atrial fibrillation with rapid ventricular response Left axis deviation Possible Anterior infarct , age undetermined Abnormal ECG When compared with ECG of 01-OCT-2023 10:46, Atrial fibrillation has replaced Atrial flutter Non-specific change in ST segment in Inferior leads Nonspecific T wave abnormality no longer evident in Inferior leads T wave inversion no longer evident in Lateral leads Read by Long SORENSEN Imaging: Chest XR, PA & LAT Preliminary Result IMPRESSION: New finding of small-moderate left pleural fluid. New consolidation or atelectasis at the left lung base. Obscured cardiac silhouette. Right lung appears clear. Report per radiology Laboratory: Labs Ordered and Resulted from Time of ED Arrival to Time of ED Departure CBC WITH PLATELETS AND DIFFERENTIAL - Abnormal Result Value WBC Count 18.5 (*) RBC Count 4.25 (*) Hemoglobin 13.1 (*) Hematocrit 40.0 MCV 94 MCH 30.8 MCHC 32.8 RDW 12.7 Platelet Count 574 (*) % Neutrophils 83 % Lymphocytes 10 % Monocytes 6 % Eosinophils 0 % Basophils 0 % Immature Granulocytes 1 NRBCs per 100 WBC 0 Absolute Neutrophils 15.2 (*) Absolute Lymphocytes 1.9 Absolute Monocytes 1.1 Absolute Eosinophils 0.0 Absolute Basophils 0.1 Absolute Immature Granulocytes 0.1 Absolute NRBCs 0.0 COMPREHENSIVE METABOLIC PANEL LIPASE TROPONIN T, HIGH SENSITIVITY Emergency Department Course & Assessments: Interventions: Medications cefTRIAXone (ROCEPHIN) 2 g vial to attach to NS 100 ml bag for ADULTS or NS 50 ml bag for PEDS (0 gIntravenous Stopped 10/14/23 1521) azithromycin (ZITHROMAX) 500 mg vial to attach to NS 250 mL bag (0 mg Intravenous Stopped 10/14/23 1645) sodium chloride 0.9% BOLUS 1,000 mL (0 mLs Intravenous Stopped 10/14/23 1643) Independent Interpretation (X-rays, CTs, rhythm strip): Yes I have independently reviewed the patient's chest x-ray, no obvious pneumothorax noted. Social Determinants of Health affecting care: Stress/Adjustment Disorders Disposition: The patient was admitted to the hospital under the care of Dr. Eckert. Impression & Plan Medical Decision Making: This is a very pleasant 83-year-old male who presents the emergency room with worsening shortness of breath and chest discomfort and weakness. He does have multiple medical social issues in terms of his hypoglycemic episodes, and I do think another reason that he should be admitted is that he can get his cardioversion done here tomorrow as well inpatient. I wonder if he does not have a burgeoningpneumonia that is now developing and making his weakness more profound as he does have an abnormal x-ray, a significant white count, and slight tachypnea. I have started him on community-acquired pneumonia treatment and sent blood cultures. He will be admitted not only for this, but also for his cardioversion as well as for diabetes medication consult as a suspect that he is overdosing his medication on a regular basis. He is resting comfortably here, may have some underlying dementia, but has a normal gross neurologic exam here and will be admitted as above. Diagnosis: ICD-10-CM 1. Hypoglycemia E16.2 2. Community acquired pneumonia, unspecified laterality J18.9 3. Episode of confusion R41.0 4. Chest pain, unspecified type R07.9 5. Weakness R53.1 6. History of atrial fibrillation Z86.79 10/14/2023 Ilan Alves* Ilan Alves MD 10/14/23 1717 INUOUS CRUSHER OPERATOR documented in this encounter Miscellaneous Notes * Result Encounter Note - Triston Knight PA-C - 10/16/2023 4:33 PM CONTINUOUS CRUSHER OPERATOR Abnormal Zio results forwarded to Jean Claude Encarnacion, Cardiovascular Diseases at [facility] (pt hasappt 10/23). INUOUS CRUSHER OPERATOR * Plan of Care - Wen Arciniega OTR - 10/16/2023 2:51 PM CST Occupational Therapy: Orders received. Chart reviewed and discussed with care team.? Occupational Therapy not indicated due to per PT, pt mobilizing well and ind in bathroom. Discharging home and no acute IP OT needs identified.? Defer discharge recommendations to care team.? Will complete orders. INUOUS CRUSHER OPERATOR * Plan of Care - Sarah Sheth, PT - 10/16/2023 12:23 PM CST Physical Therapy Discharge Summary Reason for therapy discharge: Discharged to home with home therapy. Progress towards therapy goal(s). See goals on Care Plan in [facility] electronic health record for goal details. Goals partially met. Barriers to achieving goals: discharge from facility. Therapy recommendation(s): Continued therapy is recommended. Rationale/Recommendations: Patient would benefit from home PT in order to increase strength, activity tolerance and independence with mobility. Patient requires homePT at this time as attending PT in a clinic setting would be a considerable and significantly taxing effort, limiting his ability to participate in therapy session. INUOUS CRUSHER OPERATOR * Plan of Care - Katelyn Nagel RN - 10/16/2023 11:15 AM CST PRIMARY Concern: CP, SOB, cardioversion today SAFETY RISK Concerns (fall risk, behaviors, etc.): fall risk, anxious Isolation/Type: n/a Tests/Procedures for NEXT shift: none Consults? (Pending/following, signed-off?) Cards signed off, GI following Where is patient from? (Home, TCU, etc.): home w/ Other Important info for NEXT shift: cleared to discharge home with home PT Anticipated DC date & active delays: 10/16/23 SUMMARY NOTE: Orientation/Cognitive: A&Ox3-4, more oriented with at bedside Observation Goals (Met/ Not Met): Inpatient Mobility Level/Assist Equipment: SBA Antibiotics & Plan (IV/po, length of tx left): IV zithromax and IV rocephin Pain Management: Denies pain Tele/VS/O2: Tele was afib prior to cardioversion, NSR with occasional PVC's after cardioversion ABNL Lab/BG: BG 128, 154 Diet: tolerating a mod carb diet Bowel/Bladder: WDL Skin Concerns: scattered bruising Drains/Devices: PIV SL, will be removed prior to d/c Patient Stated Goal for Today: Go home INUOUS CRUSHER OPERATOR * Pre-Procedure - Carter Ellis MD - 10/16/2023 9:04 AM CST GENERAL PRE-PROCEDURE: Procedure: Cardioversion Date/Time: 10/16/2023 8:20 AM Verbal consent obtained?: Yes Written consent obtained?: Yes Risks and benefits: Risks, benefits and alternatives were discussed Consent given by: Spouse Patient states understanding of procedure being performed: Yes Patient's understanding of procedure matches consent: Yes Procedure consent matches procedure scheduled: Yes Expected level of sedation: Moderate Appropriately NPO: Yes ASA Class: 2 Mallampati : Grade 2- soft palate, base of uvula, tonsillar pillars, and portion of posterior pharyngeal wall visible Lungs: Lungs clear with good breath sounds bilaterally Heart: A-fib History & Physical reviewed: History and physical reviewed and no updates needed Statement of review: I have reviewed the lab findings, diagnostic data, medications, and the plan for sedation INUOUS CRUSHER OPERATOR * Plan of Care - Lauryn Sanchez RN - 10/16/2023 6:33 AM CST PRIMARY Concern: PNA, chest pain SAFETY RISK Concerns (fall risk, behaviors, etc.): fall risk Isolation/Type: none Tests/Procedures for NEXT shift: sputum sample, cardioversion, CAIN. Release cardiac procedure orders Consults? (Pending/following, signed-off?) OT for decision-making Where is patient from? (Home, TCU, etc.): home with Other Important info for NEXT shift: Nitroglycerin available for chest pain. Anticipated DC date & active delays: 10/16- SUMMARY NOTE: Orientation/Cognitive: A/Ox4. Distractible at times, pleasant. Observation Goals (Met/ Not Met): Inpatient Mobility Level/Assist Equipment: SBA gb Antibiotics & Plan (IV/po, length of tx left): azithro IV and rocephin IV Pain Management: PRN tyl for chest pain; effective Tele/VS/O2: VSS RA ex tachy; Tele: Sinus tachy ABNL Lab/BG: BG 219 & 169. INR 3.26, K+ 3.9; replaced, Mg+ 1.9; pending replacement Diet: NPO since 0000 Bowel/Bladder: Continent, up to bathroom. No BM Skin Concerns: Bruise R thigh Drains/Devices: PIV SL Patient Stated Goal for Today: prep for procedures INUOUS CRUSHER OPERATOR * Utilization Review - Roberto Pacheco MD - 10/15/2023 12:19 PM CONTINUOUS CRUSHER OPERATOR Admission Status; Secondary Review Determination Under the authority of the Utilization Management Committee, the utilization review process indicated a secondary review on the above patient. The review outcome is based on review of the medical records, discussions with staff, and applying clinical experience noted on the date of the review. (x) Inpatient Status Appropriate - This patient's medical care is consistent with medical management for inpatient care and reasonable inpatient medical practice. RATIONALE FOR DETERMINATION 83-year-old male, admitted on 10/14/2023, presented with A-fib with RVR, community-acquired pneumonia, and fatigue. His medical history includes insulin- dependent type 2 diabetes, hypertension, and dyslipidemia. He experienced recurrent hypoglycemia due to mismanagement of insulin, requiring adjustments in his insulin regimen. Additionally, he reported intermittent chest pain possibly exacerbated by pneumonia, with a troponin level of 25-24 consistent with prior levels. Atrial fibrillation with a rapid ventricular response was noted, managed with Xarelto and Atenolol, with recommended cardioversion by cardiology. The pneumonia was treated with IV ceftriaxone and azithromycin, with monitoringfor clinical improvement. Overall, his complex medical issues necessitate close monitoring and interdisciplinary management during hospitalization. Dr. Steele notified The expected length of stay at the time of admission was more than 2 nights because of the severityof illness, intensity of service provided, and risk for adverse outcome. Inpatient admission is appropriate. This document was produced using voice recognition software The information on this document is developed by the utilization review team in order for the business office to ensure compliance. This only denotes the appropriateness of proper admission status and does not reflect the quality of care rendered. The definitions of Inpatient Status and Observation Status used in making the determination above are those provided in the CMS Coverage Manual, Chapter 1 and Chapter 6, section 70.4. Sincerely, ROBERTO PACHECO MD System Presentation ManagerUmbrella Cutter [facility]. INUOUS CRUSHER OPERATOR * Plan of Care - Lauryn Sanchez RN - 10/15/2023 6:21 AM CST PRIMARY Concern: PNA, chest pain SAFETY RISK Concerns (fall risk, behaviors, etc.): fall risk Isolation/Type: none Tests/Procedures for NEXT shift: sputum sample, cardio consult, BG check Consults? (Pending/following, signed-off?) cardio pending Where is patient from? (Home, TCU, etc.): home with Other Important info for NEXT shift: Nitroglycerin available for chest pain. Possible cardioversionpending cardio consult. Dtr stayed overnight Anticipated DC date & active delays: Pending SUMMARY NOTE: Orientation/Cognitive: A/Ox4 Observation Goals (Met/ Not Met): not met Mobility Level/Assist Equipment: SBA gb Antibiotics & Plan (IV/po, length of tx left): azithro IV and rocephin IV Pain Management: PRN nitroglycerin x1 Tele/VS/O2: VSS RA x HTN, tele sinus tachy ABNL Lab/BG: BG 221& 171, Lactic 1.4 Diet: NPO since 0000 Bowel/Bladder: continent to B/B, no BM. Up to bathroom Skin Concerns: WDL Drains/Devices: PIV SL Patient Stated Goal for Today: pain management. INUOUS CRUSHER OPERATOR * Pharmacy-Admission Medication History - Bridgette Arciniega [facility] - 10/14/2023 2:27 PM CST Pharmacist Admission Medication History Admission medication history is complete. The information provided in this note is only as accurateas the sources available at the time of the update. Information Source(s): Family member and CareEverywhere/SureScripts via in-person Pertinent Information: spouse at bedside had detailed list of insulin dosing (and listed diet as well on daily log), written home med list, and typed health system med list from [facility]. -atenolol: spouse verified new atenolol has been taken in addition to existing atenolol-chlorthalidone. -glargine: spouse called provider to advise on dose adjustments over the weekend; family at bedsidestate that diabetes education outpatient has not been well established. Family referenced a chartthat would outline recommended glargine doses based on BG values/intake - pharmacy deferred to other providers surrounding this tool for dosing. Family confirm patient is only on long-acting insulin.Family state patient is resistant to using Freestyle Bernarda for monitoring, and supposedly has scheduled postop follow up with RN in the next week outpatient to discuss this among other concerns. -prednisone: patient on tapering dose 40 mg --> 20 mg --> 10 mg, completed within the last week. -Lunesta re-added to list per spouse request; has not been filled since 06/2023 #30ds but spouse states refill is awaiting pickup at outpatient pharmacy. Spouse states thought gabapentin was meant to replace this but it isn't. Spouse mentioned likely out of home supply of this for ~2 weeks; said patient had a bunch of pink and white pills in a jar that I got rid of - spouse admits patient is known to sequester supply of other medications (oxycodone mentioned as well at this point in interview). -melatonin was on one of patient's medication list copies; spouse confirms patient not taking, finds ineffective. Changes made to PECAN CLEANER medication list: Added: amlodipine, oxycodone, multivitamin, magnesium, vitamin D, Areds Deleted: prednisone daily (see above, taper completed), marked duplicate Xarelto as such Changed: clarified gabapentin HS, specified last 4 days Lantus dosing (beginning of previous week blank on family's documentation), lidocaine added frequency, metformin added frequency Allergies reviewed with patient and updates made in EHR: no - RN reviewed Medication History Completed By: Bridgette Arciniega [facility] 10/14/2023 2:27 PM PECAN CLEANER Med List Medication Sig Note Last Dose amLODIPine (NORVASC) 2.5 MG tablet Take 5 mg by mouth at bedtime 10/13/2023 at HS atenolol (TENORMIN) 50 MG tablet Take 1 tablet (50 mg) by mouth daily for 30 days 10/13/2023 at HS atenolol-chlorthalidone (TENORETIC) 50-25 MG tablet Take 1 tablet by mouth every morning 10/14/2023 at AM eszopiclone (LUNESTA) 2 MG tablet Take 2 mg by mouth at bedtime as needed for sleep Past Month at PM gabapentin (NEURONTIN) 100 MG capsule Take 100 mg by mouth at bedtime 10/13/2023 at HS INSULIN GLARGINE 100 UNIT/ML pen Inject Subcutaneous at bedtime 10/10/23: 82 units 10/11/23: 60 units 10/12/23: 50 units 10/13/23: 50 units 10/14/2023: 10/10 patient-stated dose 82 units. 2 AM spouse called provider; was instructed to decrease dose to 50 units daily but patient had already administered 60 units in evening 10/11. 10/12 and 10/13 dose of 50 units given. 10/13/2023 at 50 units in PM lidocaine (LIDODERM) 5 % patch Place 1 patch onto the skin daily as needed for moderate pain (spasms) Applies to chest/shoulder/neck, also to feet Unknown at PRN losartan (COZAAR) 100 MG tablet Take 100 mg by mouth daily 10/13/2023 at dinner magnesium oxide (MAG-OX) 400 MG tablet Take 400 mg by mouth daily 10/14/2023 at AM metFORMIN (GLUCOPHAGE XR) 500 MG 24 hr tablet Take 500 mg by mouth every morning 10/14/2023 at AM mirabegron (MYRBETRIQ) 50 MG 24 hr tablet Take 50 mg by mouth daily 10/13/2023 at dinner Multiple Vitamins-Minerals (ICAPS AREDS 2 PO) Take 1 tablet by mouth 2 times daily 10/14/2023 at AM multivitamin (CENTRUM SILVER) tablet Take 1 tablet by mouth daily 10/14/2023 at AM nitroGLYcerin (NITROSTAT) 0.4 MG sublingual tablet For chest pain place 1 tablet under the tongue every 5 minutes for 3 doses. If symptoms persist 5 minutes after 1st dose call 911. Unknown at PRN oxyCODONE (ROXICODONE) 5 MG tablet Take 5 mg by mouth every 6 hours as needed for severe pain Unknown at AZN, has home supply rivaroxaban ANTICOAGULANT (XARELTO) 20 MG TABS tablet Take 1 tablet (20 mg) by mouth daily (with dinner) 10/13/2023 at dinner rosuvastatin (CRESTOR) 40 MG tablet Take 1 tablet (40 mg) by mouth at bedtime 10/13/2023 at HS Vitamin D3 (VITAMIN D, CHOLECALCIFEROL,) 25 mcg (1000 units) tablet Take 25 mcg by mouth daily 10/14/2023 at AM INUOUS CRUSHER OPERATOR documented in this encounter Plan of Treatment Upcoming Encounters Date Type Department Care Team (Late st Contact Info) Description 05/14/2024 12:30 PM CDT Office Visit [facility] [address] [place] [phone] Gail Post MD [address] [place] [address] Anushka Carrasquillo MD [address] [place], [place] [phone] Scheduled Referrals Name Type Priority Associated Diagnoses Orde r Schedule Adult Endocrinology Window Display Designer Referral Referral Routine: Next available opening Type 2 diabetes mellitus with stage 3b chronic kidney disease, with long-term current use of insulin (H) Expected: 10/16/2023 (Approximate), Expires: 10/16/2024 Home Care Referral Referral Routine: Next available opening Community acquired pneumonia, unspecified laterality Episode of confusion Ordered: 10/16/2023 documented as of this encounter Procedures Procedure Name Priority Date/Time Associated Diagnosis Comments HOLTER MONITOR 48 HOUR APPLICATION SCAN ANALYSIS AND PROVIDER INTERPRETATION Routine 10/16/2023 7:05 PM CONTINUOUS CRUSHER OPERATOR GLUCOSE BY METER Routine 10/16/2023 12:0 6 PM CONTINUOUS CRUSHER OPERATOR HEPATITIS A ANTIBODY IGM Routine 10/16/2023 10:22 AM CONTINUOUS CRUSHER OPERATOR EKG 12-LEAD, TRACING ONLY Routine 10/16/2023 10:04 AM CONTINUOUS CRUSHER OPERATOR US ABDOMEN LIMITED Routine 10/16/2023 9: 36 AM CONTINUOUS CRUSHER OPERATOR CARDIOVERSION EXTERNAL Routine 8:35 AM CONTINUOUS CRUSHER OPERATOR ANESTHESIA, FOR CARDIOVERSION 10/16/2023 8:20 AM CONTINUOUS CRUSHER OPERATOR Chronic atrial fibrillation (H) GLUCOSE BY METER Routine 10/16/2023 7:29 AM CONTINUOUS CRUSHER OPERATOR EKG 12-LEAD, TRACING ONLY STAT 10/16/2023 7:11 AM CONTINUOUS CRUSHER OPERATOR INR STAT 10/16/2023 6:08 AM CONTINUOUS CRUSHER OPERATOR MAGNESIUM STAT 10/16/2023 6:08 AM CONTINUOUS CRUSHER OPERATOR HEPATITIS C ANTIBODY Add-On 10/16/2023 6:08 AM CONTINUOUS CRUSHER OPERATOR HEPATITIS B SURFACE ANTIGEN Add-On 10/16/2023 6:08 AM CONTINUOUS CRUSHER OPERATOR COMPREHENSIVE METABOLIC PANEL STAT 10/16/2023 6:08 AM CONTINUOUS CRUSHER OPERATOR CBC WITH PLATELETS Routine 10/16/2023 6: 08 AM CONTINUOUS CRUSHER OPERATOR GLUCOSE BY METER Routine 10/16/2023 1:10 AM CONTINUOUS CRUSHER OPERATOR GLUCOSE BY METER Routine 10/15/2023 9:26 PM CONTINUOUS CRUSHER OPERATOR GLUCOSE BY METER Routine 10/15/2023 5:29 PM CONTINUOUS CRUSHER OPERATOR GLUCOSE BY METER Routine 10/15/2023 12:0 1 PM CONTINUOUS CRUSHER OPERATOR XR CHEST 2 VIEWS Routine 10/15/2023 8:09 AM CONTINUOUS CRUSHER OPERATOR GLUCOSE BY METER Routine 10/15/2023 7:39 AM CONTINUOUS CRUSHER OPERATOR TROPONIN T, HIGH SENSITIVITY Routine 10/15/2023 7:15 AM CONTINUOUS CRUSHER OPERATOR LIPID REFLEX TO DIRECT LDL PANEL Routine 10/15/2023 7:15 AM CONTINUOUS CRUSHER OPERATOR COMPREHENSIVE METABOLIC PANEL Routine 10/15/2023 7:15 AM CONTINUOUS CRUSHER OPERATOR CBC WITH PLATELETS Routine 10/15/2023 7: 15 AM CONTINUOUS CRUSHER OPERATOR GLUCOSE BY METER Routine 10/15/2023 2:13 AM CONTINUOUS CRUSHER OPERATOR GLUCOSE BY METER Routine 10/14/2023 10:1 1 PM CONTINUOUS CRUSHER OPERATOR LACTIC ACID WHOLE BLOOD STAT 10/14/2023 6:53 PM CONTINUOUS CRUSHER OPERATOR GLUCOSE BY METER Routine 10/14/2023 5:42 PM CONTINUOUS CRUSHER OPERATOR INFLUENZA A/B, RSV, & SARS-COV2 PCR STAT 10/14/2023 4:40 PM CONTINUOUS CRUSHER OPERATOR TROPONIN T, HIGH SENSITIVITY STAT 10/14/2023 2:57 PM CONTINUOUS CRUSHER OPERATOR LACTIC ACID WHOLE BLOOD STAT 10/14/2023 2:57 PM CONTINUOUS CRUSHER OPERATOR BLOOD CULTURE STAT 10/14/2023 2:28 PM CONTINUOUS CRUSHER OPERATOR BLOOD CULTURE STAT 10/14/2023 2:20 PM CONTINUOUS CRUSHER OPERATOR XR CHEST 2 VIEWS STAT 10/14/2023 1:12 PM CONTINUOUS CRUSHER OPERATOR EXTRA TUBE STAT 10/14/2023 12:53 PM CONTINUOUS CRUSHER OPERATOR EXTRA BLUE TOP TUBE STAT 10/14/2023 1 2:53 PM CONTINUOUS CRUSHER OPERATOR CBC WITH PLATELETS AND DIFFERENTIAL STAT 10/14/2023 12:53 PM CONTINUOUS CRUSHER OPERATOR TROPONIN T, HIGH SENSITIVITY STAT 10/14/2023 12:53 PM CONTINUOUS CRUSHER OPERATOR PROCALCITONIN Add-On 10/14/2023 12:53 PM CONTINUOUS CRUSHER OPERATOR CBC WITH PLATELETS & DIFFERENTIAL STAT 10/14/2023 12:53 PM CONTINUOUS CRUSHER OPERATOR MAGNESIUM Add-On 10/14/2023 12:53 PM CONTINUOUS CRUSHER OPERATOR LIPASE STAT 10/14/2023 12:53 PM CONTINUOUS CRUSHER OPERATOR HEMOGLOBIN A1C Add-On 10/14/2023 12:53 PM CONTINUOUS CRUSHER OPERATOR COMPREHENSIVE METABOLIC PANEL STAT 10/14/2023 12:53 PM CONTINUOUS CRUSHER OPERATOR EKG 12-LEAD, TRACING ONLY STAT 10/14/2023 12:41 PM CONTINUOUS CRUSHER OPERATOR documented in this encounter Results * HOLTER MONITOR 48 HOUR APPLICATION SCAN ANALYSIS AND PROVIDER INTERPRETATION (10/16/2023 7:05 PM CONTINUOUS CRUSHER OPERATOR) Anatomical Region Laterality Modality Other 10/16/2023 4:17 PM CONTINUOUS CRUSHER OPERATOR 10/21/2023 6:00 PM CONTINUOUS CRUSHER OPERATOR Narrative 10/21/2023 6:00 PM CONTINUOUS CRUSHER OPERATOR Kamron De León was monitored for 48 hours. Quality of the tracing was good. Predominant rhythm was Atrial fibrillation ??(61% of the recording). Average HR was 112 bpm, maximum HR was 163 bpm at 12:42 PM (Day 1), minimum HR was 74 bpm at 6:18 AM ??(Day 1). AZ interval measured 0.17 seconds, QRS duration 0.09 seconds, QT interval 0.297-0.336 seconds. There were zero pauses over 2.0 seconds. 2. There were 7,774 ventricular ectopic beats (3% [place]), 7,187 of these were isolated PVCs. There were 269 couplets and 15 ??triplets. There was one 4 beat ventricular run with a rate of 176 bpm at 6:15 PM (Day 2). 3. There were 8,313 supraventricular ectopic beats (3% [place]), 6,963 of these were isolated PACs. There [...] no symptoms were noted. 10/19/2023 Confirmed by NICANOR PATEL ([id number]) on 10/21/2023 6:00:23 PM Procedure Note Nicanor Patel MD - 10/21/2023 1. Ilan De León was monitored for 48 hours. Quality of the tracingwas good. Predominant rhythm was Atrial fibrillation (61% of therecording). Average HR was 112 bpm, maximum HR was 163 bpm at 12:42 PM (Day 1),minimum HR was 74 bpm at 6:18 AM (Day 1). AZ interval measured 0.17seconds, QRS duration 0.09 seconds, QT interval 0.297-0.336 seconds. There were zero pauses over 2.0 seconds. 2. There were 7,774 ventricular ectopic beats (3% [place]), 7,187 of thesewere isolated PVCs. There were 269 couplets and 15 triplets. There wasone 4 beat ventricular run with a rate of 176 bpm at 6:15 PM (Day 2). 3. There were 8,313 supraventricular ectopic beats (3% [place]), 6,963 ofthese were isolated PACs. There were [...] no symptoms were noted. 10/19/2023 Confirmed by NICANOR PATEL ([id number]) on 10/21/2023 6:00:23 PM Merlyn Lyon [facility] CV CARDIAC SERVICES ORDERABLES * (ABNORMAL) Glucose by meter (10/16/2023 12:06 PM CONTINUOUS CRUSHER OPERATOR) GLUCOSE BY METER POCT 154(H) 70 - 99 mg/dL 10/16/2023 12:16 PM CONTINUOUS CRUSHER OPERATOR LABORATORY POC Blood, Capillary BLOOD SPECIMEN / Unknown 10/16/2023 12:06 PM CONTINUOUS CRUSHER OPERATOR 10/16/2023 12:16 PM CONTINUOUS CRUSHER OPERATOR Michelle Eckert MD LAB - BEAKER POCT LABORATORY POC [facility] [address] [place] [address], [facility] [phone] * Hepatitis A antibody IgM (10/16/2023 10:22 AM CONTINUOUS CRUSHER OPERATOR) Hepatitis A Antibody IgM Nonreactive Nonreactive 10/16/2023 3:37 PM CONTINUOUS CRUSHER OPERATOR LABORATORY Comment:Nonreactive results indicate either inadequate or delayed anti-HAV IgM response after known exposure to HAV or absence of acute or recent hepatitis A. Blood STRUCTURE OF RIGHT UPPER LIMB / Unknown Venipuncture / Unknown 10/16/2023 10:22 AM CONTINUOUS CRUSHER OPERATOR 10/16/2023 10:27 AM CONTINUOUS CRUSHER OPERATOR Gail Post MD LAB - BLOOD ORDERABL ES LABORATORY [facility] [address], [address] [place] [address], [place] [phone] * EKG 12-lead, tracing only (10/16/2023 10:04 AM CONTINUOUS CRUSHER OPERATOR) Systolic Blood Pressure mmHg RADIOLOGY RESULTS Diastolic Blood Pressure mmHg RADIOLOGY RESULTS Ventricular Rate 91 BPM RAD IOLOGY RESULTS Atrial Rate 91 BPM RADIOLOG Y RESULTS AZ Interval 182 ms RADIOLOG Y RESULTS QRS Duration 80 ms RADIOLO GY RESULTS QT 330 ms RADIOLOGY RESULTS QTc 405 ms RADIOLOGY RESULTS P [place] 74 degrees RADIOLOGY RESULTS R AXIS 19 degrees RADIOLOGY RESULTS T [place] 213 degrees RADIOLOGY RESULTS Interpretation ECG Sinus rhythm with occasional Premature ventricular complexes and Premature atrial complexes Cannot rule out Anterior infarct , age undetermined Abnormal ECG When compared with ECG of 16-OCT-2023 07:11, (unconfirmed) Sinus rhythm has replaced Atrial fibrillation Confirmed by MD GRAY GREGORY ([id number]), purchase request editor Cole Pool ([id number]) on 10/18/2023 7:58:52 AM RADIOLOGY RESULTS 10/16/2023 10:0 4 AM CONTINUOUS CRUSHER OPERATOR 10/18/2023 7:58 AM CONTINUOUS CRUSHER OPERATOR Carter Ellis MD ECG ORDERABLES RADIOLOGY RESULTS * US Abdomen Limited (10/16/2023 9:36 AM CONTINUOUS CRUSHER OPERATOR) Anatomical Region Laterality Modality Abdomen/Pelvis Ultrasound Impressions 10/16/2023 10:25 AM CONTINUOUS CRUSHER OPERATOR IMPRESSION: 1. ??Hepatic steatosis, similar to previous. TRAVON HARRIS MD Narrative 10/16/2023 10:25 AM CONTINUOUS CRUSHER OPERATOR US ABDOMEN LIMITED 10/16/2023 9:36 AM CLINICAL [...] ORDERABLES * CARDIOVERSION EXTERNAL (10/16/2023 8:35 AM CONTINUOUS CRUSHER OPERATOR) Anatomical Region Laterality Modality Other Narrative 10/16/2023 8:35 AM CONTINUOUS CRUSHER OPERATOR Carter Ellis MD ? 10/16/2023 ??9:[address] [facility] Procedure: EP Cardioversion External Date/Time: 10/16/2023 8:35 [...] procedure a time out was called ?? [place] Protocol: the Joint Commission [place] Protocol was followed ?? Preparation: Patient was [...] CNP CV ELECTROPHYSIOLOG Y ORDERABLES * (ABNORMAL) Glucose by meter (10/16/2023 7:29 AM CONTINUOUS CRUSHER OPERATOR) GLUCOSE BY METER POCT 128(H) 70 - 99 mg/dL 10/16/2023 7:36 AM [facility] LABORATORY POC Blood, Capillary BLOOD SPECIMEN / Unknown 10/16/2023 7:29 AM CONTINUOUS CRUSHER OPERATOR 10/16/2023 7:36 AM CONTINUOUS CRUSHER OPERATOR [facility] POC [facility] Lab [address], [address] [place] [address], [facility] [phone] * EKG 12-lead, tracing only (10/16/2023 7:11 AM CONTINUOUS CRUSHER OPERATOR) Systolic Blood Pressure mmHg RADIOLOGY RESULTS Diastolic Blood Pressure mmHg RADIOLOGY RESULTS Ventricular Rate 108 BPM RAD IOLOGY RESULTS Atrial Rate 115 BPM RADIOLOG Y RESULTS AZ Interval ms RADIOLOG Y RESULTS QRS Duration 84 ms RADIOLO GY RESULTS QT 308 ms RADIOLOGY RESULTS QTc 412 ms RADIOLOGY RESULTS P [place] degrees RADIOLOGY RESULTS R AXIS -31 degrees RADIOLOGY RESULTS T [place] 174 degrees RADIOLOGY RESULTS Interpretation ECG Atrial fibrillation with rapid ventricular response with premature ventricular or aberrantly conducted complexes Left axis deviation Nonspecific ST and T wave abnormality Abnormal ECG When compared with ECG of 14-OCT-2023 12:41, Nonspecific T wave abnormality now evident in Inferior leads Nonspecific T wave abnormality, worse in Lateral leads Confirmed by STACY FITZGERALD ([id number]), purchase request editor Cole Pool ([id number]) on 10/18/2023 8:02:41 AM RADIOLOGY RESULTS 10/16/2023 7:11 AM CONTINUOUS CRUSHER OPERATOR 10/18/2023 8:02 AM CONTINUOUS CRUSHER OPERATOR Michelle Eckert MD ECG ORDERABLES RADIOLOGY RESULTS * Hepatitis C antibody (10/16/2023 6:08 AM CONTINUOUS CRUSHER OPERATOR) Hepatitis C Antibody Nonreactive Nonreactive 10/16/2023 3:31 PM CONTINUOUS CRUSHER OPERATOR [facility] Comment:A nonreactive screen ing test [...] Unknown Venipuncture / Unknown 10/16/2023 6:08 AM CONTINUOUS CRUSHER OPERATOR 10/16/2023 6:16 AM CONTINUOUS CRUSHER OPERATOR Gail Post MD LAB - BLOOD ORDERABL ES Performing Organization Address City/[facility]/ZIP Co de Phone Number U LABORATORY [facility] [address], [address] [address], [facility] [phone] * Hepatitis B surface antigen (10/16/2023 6:08 AM CONTINUOUS CRUSHER OPERATOR) Hepatitis B Surface Antigen Nonreactive Nonreactive 10/16/2023 3:31 PM CONTINUOUS CRUSHER OPERATOR U LABORATORY Blood STRUCTURE OF RIGHT HAND / Unknown Venipuncture / Unknown 10/16/2023 6:08 AM CONTINUOUS CRUSHER OPERATOR 10/16/2023 6:16 AM CONTINUOUS CRUSHER OPERATOR Gail Post MD LAB - BLOOD ORDERABL ES Performing Organization Address [facility] Co de Phone Number U LABORATORY [facility] [address], [address] [address], [facility] [phone] * (ABNORMAL) Comprehensive metabolic panel (10/16/2023 6:08 AM CONTINUOUS CRUSHER OPERATOR) Pathologist [facility] Sodium 141 135 - 145 mmol/L 10/16/2023 6:42 AM [facility] LABORATORY Comment:Reference intervals for this test were updated on 05/28/2023 to more accurately reflect our healthy population. There may be differences in the flagging of prior results with similar values performed with this method. Interpretation of those prior results can be made in the context of the updated reference intervals. Potassium 3.9 3.4 - 5.3 mmol/L 10/16/2023 6:42 AM [facility] LABORATORY Carbon Dioxide (CO2) 27 22 - 29 mmol/L 10/16/2023 6:42 AM [facility] LABORATORY Anion Gap 11 7 - 15 mmol/L 10/16/2023 6:42 AM [facility] LABORATORY Urea Nitrogen 27.2(H) 8.0 - 23.0 mg/dL 10/16/2023 6:42 AM [facility] LABORATORY Creatinine 1.38(H) 0.67 - 1.17 mg/dL 10/16/2023 6:42 AM [facility] LABORATORY GFR Estimate 51(L) >60 mL/min/1. 73m2 10/16/2023 6:42 AM [facility] LABORATORY Calcium 9.1 8.8 - 10.2 mg/dL 10/16/2023 6:42 AM [facility] LABORATORY Chloride 103 98 - 107 mmol/L 10/16/2023 6:42 AM [facility] LABORATORY Glucose 135(H) 70 - 99 mg/dL 10/16/2023 6:42 AM [facility] LABORATORY Alkaline Phosphatase 107 40 - 150 U/L 10/16/2023 6:42 AM [facility] LABORATORY Comment:Reference intervals for this test were updated on 07/16/2023 to more accurately reflect our healthy population. There may be differences in the flagging of prior results with similar values performed with this method. Interpretation of those prior results can be made in the context of the updated reference intervals. AST 193(H) 0 - 45 U/L 10/16/2023 6:42 AM [facility] LABORATORY Comment:Reference intervals for this test were updated on 02/11/2023 to more accurately reflect our healthy population. There may be differences in the flagging of prior results with similar values performed with this method. Interpretation of those prior results can be made in the context of the updated reference intervals. ALT 240(H) 0 - 70 U/L 10/16/2023 6:42 AM [facility] LABORATORY Comment:Reference intervals for this test were updated on 02/11/2023 to more accurately reflect our healthy population. There may be differences in the flagging of prior results with similar values performed with this method. Interpretation of those prior results can be made in the context of the updated reference intervals. Protein Total 6.4 6.4 - 8.3 g/dL 10/16/2023 6:42 AM [facility] LABORATORY Albumin 2.9(L) 3.5 - 5.2 g/dL 10/16/2023 6:42 AM [facility] LABORATORY Bilirubin Total 0.3 <=1.2 mg/dL 10/16/2023 6:42 AM [facility] LABORATORY Blood STRUCTURE OF RIGHT HAND / Unknown Venipuncture / Unknown 10/16/2023 6:08 AM CONTINUOUS CRUSHER OPERATOR 10/16/2023 6:16 AM [facility] Bacilio Steele MD LAB - BLOOD OR DERABLES LABORATORY [facility] Lab [address], [address] [place] [address], [facility] [phone] * (ABNORMAL) CBC with platelets (10/16/2023 6:08 AM CONTINUOUS CRUSHER OPERATOR) WBC Count 10.7 4.0 - 11.0 10e3/uL 10/16/2023 6:22 AM [facility] LABORATORY RBC Count 4.08(L) 4.40 - 5.90 10e6/uL 10/16/2023 6:22 AM [facility] LABORATORY Hemoglobin 12.6(L) 13.3 - 17.7 g/dL 10/16/2023 6:22 AM [facility] LABORATORY Hematocrit 38.5(L) 40.0 - 53.0 % 10/16/2023 6:22 AM [facility] LABORATORY MCV 94 78 - 100 fL 10/16/2023 6:22 AM [facility] LABORATORY MCH 30.9 26.5 - 33.0 pg 10/16/2023 6:22 AM [facility] LABORATORY MCHC 32.7 31.5 - 36.5 g/dL 10/16/2023 6:22 AM [facility] LABORATORY RDW 12.8 10.0 - 15.0 % 10/16/2023 6:22 AM [facility] LABORATORY Platelet Count 493(H) 150 - 450 10e3/uL 10/16/2023 6:22 AM [facility] LABORATORY Blood STRUCTURE OF RIGHT HAND / Unknown Venipuncture / Unknown 10/16/2023 6:08 AM CONTINUOUS CRUSHER OPERATOR 10/16/2023 6:16 AM [facility] Bacilio Steele MD LAB - BLOOD OR DERABLES LABORATORY [facility] Lab [address], [address] [place] [address], [facility] [phone] * Magnesium (10/16/2023 6:08 AM CONTINUOUS CRUSHER OPERATOR) Magnesium 1.9 1.7 - 2.3 mg/dL 10/16/2023 6:42 AM CONTINUOUS CRUSHER OPERATOR LABORATORY Blood STRUCTURE OF RIGHT HAND / Unknown Venipuncture / Unknown 10/16/2023 6:08 AM CONTINUOUS CRUSHER OPERATOR 10/16/2023 6:16 AM CONTINUOUS CRUSHER OPERATOR Merlyn Lyon CNP LAB - BLOOD ORDERAB LES LABORATORY [facility] Lab [address], [address] [place] [address], [place] [phone] * (ABNORMAL) INR (10/16/2023 6:08 AM CONTINUOUS CRUSHER OPERATOR) INR 3.26(H) 0.85 - 1.15 10/16/2023 6:45 AM CONTINUOUS CRUSHER OPERATOR LABORATORY Blood STRUCTURE OF RIGHT HAND / Unknown Venipuncture / Unknown 10/16/2023 6:08 AM CONTINUOUS CRUSHER OPERATOR 10/16/2023 6:16 AM CONTINUOUS CRUSHER OPERATOR Merlyn Lyon CNP LAB - BLOOD ORDERAB LES LABORATORY [facility] Lab [address], [address] [place] [address], [place] [phone] * (ABNORMAL) Glucose by meter (10/16/2023 1:10 AM CONTINUOUS CRUSHER OPERATOR) GLUCOSE BY METER POCT 169(H) 70 - 99 mg/dL 10/16/2023 1:20 AM CONTINUOUS CRUSHER OPERATOR LABORATORY POC Blood, Capillary BLOOD SPECIMEN / Unknown 10/16/2023 1:10 AM CONTINUOUS CRUSHER OPERATOR 10/16/2023 1:20 AM CONTINUOUS CRUSHER OPERATOR Michelle Eckert MD LAB - BEAKER POCT LABORATORY POC [facility] Lab [address], [address] [place] [address], [place] [phone] * (ABNORMAL) Glucose by meter (10/15/2023 9:26 PM CONTINUOUS CRUSHER OPERATOR) GLUCOSE BY METER POCT 219(H) 70 - 99 mg/dL 10/15/2023 9:33 PM CONTINUOUS CRUSHER OPERATOR LABORATORY POC Blood, Capillary BLOOD SPECIMEN / Unknown 10/15/2023 9:26 PM CONTINUOUS CRUSHER OPERATOR 10/15/2023 9:33 PM CONTINUOUS CRUSHER OPERATOR Michelle Eckert MD LAB - BEAKER POCT LABORATORY [facility] [address], [address] [place] [address], [place] [phone] * (ABNORMAL) Glucose by meter (10/15/2023 5:29 PM CONTINUOUS CRUSHER OPERATOR) GLUCOSE BY METER POCT 218(H) 70 - 99 mg/dL 10/15/2023 5:40 PM CONTINUOUS CRUSHER OPERATOR LABORATORY POC Blood, Capillary BLOOD SPECIMEN / Unknown 10/15/2023 5:29 PM CONTINUOUS CRUSHER OPERATOR 10/15/2023 5:40 PM CONTINUOUS CRUSHER OPERATOR Michelle TONEY - [facility] POCT [facility] Lab [address], [address] [place] [address], [place] [phone] * (ABNORMAL) Glucose by meter (10/15/2023 12:01 PM CONTINUOUS CRUSHER OPERATOR) GLUCOSE BY METER POCT 130(H) 70 - 99 mg/dL 10/15/2023 12:07 PM CONTINUOUS CRUSHER OPERATOR LABORATORY POC Blood, Capillary BLOOD SPECIMEN / Unknown 10/15/2023 12:01 PM CONTINUOUS CRUSHER OPERATOR 10/15/2023 12:07 PM CONTINUOUS CRUSHER OPERATOR Michelle STERLING POCT LABORATORY POC [facility] Lab [address], [address] [place] [address], [facility] [phone] * XR Chest 2 Views (10/15/2023 8:09 AM CONTINUOUS CRUSHER OPERATOR) Anatomical Region Laterality Modality Chest Digital Radiogra phy Impressions 10/15/2023 9:13 AM CONTINUOUS CRUSHER OPERATOR IMPRESSION: Stable cardiac silhouette which is partially obscured. Similar opacification of the left lung base which is favored secondary to a moderate-sized left pleural effusion with underlying consolidation not excluded. Similar calcified granuloma of the right lung base. No discernible pneumothorax. No acute displaced fracture. PRECIOUS YOON MD Narrative 10/15/2023 9:13 AM CONTINUOUS CRUSHER OPERATOR CHEST TWO VIEWS 10/15/2023 8:09 AM HISTORY: [...] IMG DIAGNOS TIC IMAGING ORDERABLES * (ABNORMAL) Glucose by meter (10/15/2023 7:39 AM CONTINUOUS CRUSHER OPERATOR) Pathologist [facility] GLUCOSE BY METER POCT 122(H) 70 - 99 mg/dL 10/15/2023 7:46 AM CONTINUOUS CRUSHER OPERATOR LABORATORY POC Blood, Capillary BLOOD SPECIMEN / Unknown 10/15/2023 7:39 AM CONTINUOUS CRUSHER OPERATOR 10/15/2023 7:46 AM CONTINUOUS CRUSHER OPERATOR [facility] [address], [address] [place] [address], [facility] [phone] * (ABNORMAL) Lipid panel reflex to direct LDL (10/15/2023 7:15 AM CONTINUOUS CRUSHER OPERATOR) Cholesterol 66 <200 mg/dL 10/15/2023 11:29 AM CONTINUOUS CRUSHER OPERATOR [facility] Triglycerides 65 <150 mg/dL 10/15/2023 11:29 AM CONTINUOUS CRUSHER OPERATOR [facility] Direct Measure HDL 26(L) >=40 mg/dL 2023 11:29 AM CONTINUOUS CRUSHER OPERATOR [facility] LDL Cholesterol Calculated 27 <=100 mg/dL 10/15/2023 11:29 AM CONTINUOUS CRUSHER OPERATOR [facility] Non HDL Cholesterol 40 <130 mg/dL 10/15/2023 11:29 AM CONTINUOUS CRUSHER OPERATOR [facility] Patient Fasting > 8hrs? Yes 10/15/2023 11:29 AM CONTINUOUS CRUSHER OPERATOR SH LABORATORY Blood STRUCTURE OF RIGHT UPPER LIMB / Unknown Venipuncture / Unknown 10/15/2023 7:15 AM CONTINUOUS CRUSHER OPERATOR 10/15/2023 7:39 AM CONTINUOUS CRUSHER OPERATOR Narrative [facility] - 10/15/2023 11:29 AM CONTINUOUS CRUSHER OPERATOR Cholesterol Desirable: ??<200 mg/dL Triglycerides Normal: ??Less [...] PA-C LAB - BLOOD ORDERABLES [facility] [address] [facility] [address], [address] [place] [address], [place] [phone] LABORATORY [facility] Lab [address], [address] [place] [address], [place] [phone] * (ABNORMAL) Troponin T, High Sensitivity (10/15/2023 7:15 AM CONTINUOUS CRUSHER OPERATOR) Troponin T, High Sensitivity 30(H) <=22 ng/L 10/15/2023 8:11 AM CONTINUOUS CRUSHER OPERATOR LABORATORY Comment: Either a High Sensitivity Troponin [...] Unknown Venipuncture / Unknown 10/15/2023 7:15 AM CONTINUOUS CRUSHER OPERATOR 10/15/2023 7:39 AM CONTINUOUS CRUSHER OPERATOR Dulce Fisher PA-C LAB - BLOOD ORDERABLES LABORATORY [facility] Lab [address], [address] [place] [address], [facility] [phone] * (ABNORMAL) CBC with platelets (10/15/2023 7:15 AM CONTINUOUS CRUSHER OPERATOR) WBC Count 15.3(H) 4.0 - 11.0 10e3/uL 10/15/2023 7:43 AM CONTINUOUS CRUSHER OPERATOR LABORATORY RBC Count 4.00(L) 4.40 - 5.90 10e6/uL 10/15/2023 7:43 AM [facility] LABORATORY Hemoglobin 12.4(L) 13.3 - 17.7 g/dL 10/15/2023 7:43 AM [facility] LABORATORY Hematocrit 36.9(L) 40.0 - 53.0 % 10/15/2023 7:43 AM [facility] LABORATORY MCV 92 78 - 100 fL 10/15/2023 7:43 AM [facility] LABORATORY MCH 31.0 26.5 - 33.0 pg 10/15/2023 7:43 AM [facility] LABORATORY MCHC 33.6 31.5 - 36.5 g/dL 10/15/2023 7:43 AM [facility] LABORATORY RDW 12.6 10.0 - 15.0 % 10/15/2023 7:43 AM [facility] LABORATORY Platelet Count 566(H) 150 - 450 10e3/uL 10/15/2023 7:43 AM [facility] LABORATORY Blood STRUCTURE OF RIGHT UPPER LIMB / Unknown Venipuncture / Unknown 10/15/2023 7:15 AM CONTINUOUS CRUSHER OPERATOR 10/15/2023 7:39 AM [facility] Dulce Fisher PA-C LAB - BLOOD ORDERABLES LABORATORY [facility] Lab [address], [address] [place] [address], [facility] [phone] * (ABNORMAL) Comprehensive metabolic panel (10/15/2023 7:15 AM [facility]) [facility] Signature Sodium 138 135 - 145 mmol/L 10/15/2023 8:11 AM [facility] LABORATORY Comment:Reference intervals for this test were updated on 05/28/2023 to more accurately reflect our healthy population. There may be differences in the flagging of prior results with similar values performed with this method. Interpretation of those prior results can be made in the context of the updated reference intervals. Potassium 3.8 3.4 - 5.3 mmol/L 10/15/2023 8:11 AM [facility] LABORATORY Carbon Dioxide (CO2) 26 22 - 29 mmol/L 10/15/2023 8:11 AM [facility] LABORATORY Anion Gap 12 7 - 15 mmol/L 10/15/2023 8:11 AM [facility] LABORATORY Urea Nitrogen 26.1(H) 8.0 - 23.0 mg/dL 10/15/2023 8:11 AM [facility] LABORATORY Creatinine 1.41(H) 0.67 - 1.17 mg/dL 10/15/2023 8:11 AM [facility] LABORATORY GFR Estimate 49(L) >60 mL/min/1. 73m2 10/15/2023 8:11 AM [facility] LABORATORY Calcium 9.0 8.8 - 10.2 mg/dL 10/15/2023 8:11 AM [facility] LAB[facility]ATORY Chloride 100 98 - 107 mmol/L 10/15/2023 8:11 AM [facility] LAB[facility]ORY Glucose 120(H) 70 - 99 mg/dL 10/15/2023 8:11 AM [facility] LABORATORY Alkaline Phosphatase 87 40 - 150 U/L 10/15/2023 8:11 AM [facility] LAB[facility]ORY Comment:Reference intervals for this test were updated on 07/16/2023 to more accurately reflect our healthy population. There may be differences in the flagging of prior results with similar values performed with this method. Interpretation of those prior results can be made in the context of the updated reference intervals. AST 64(H) 0 - 45 U/L 10/15/2023 8:11 AM [facility] Comment:Reference intervals for this test were updated on 02/11/2023 to more accurately reflect our healthy population. There may be differences in the flagging of prior results with similar values performed with this method. Interpretation of those prior results can be made in the context of the updated reference intervals. ALT 123(H) 0 - 70 U/L 10/15/2023 8:11 AM [facility] Comment:Reference intervals for this test were updated on 02/11/2023 to more accurately reflect our healthy population. There may be differences in the flagging of prior results with similar values performed with this method. Interpretation of those prior results can be made in the context of the updated reference intervals. Protein Total 6.4 6.4 - 8.3 g/dL 10/15/2023 8:11 AM [facility] Albumin 3.1(L) 3.5 - 5.2 g/dL 10/15/2023 8:11 AM CONTINUOUS CRUSHER OPERATOR LABORATORY Bilirubin Total 0.5 <=1.2 mg/dL 10/15/2023 8:11 AM CONTINUOUS CRUSHER OPERATOR LABORATORY Blood STRUCTURE OF RIGHT UPPER LIMB / Unknown Venipuncture / Unknown 10/15/2023 7:15 AM CONTINUOUS CRUSHER OPERATOR 10/15/2023 7:39 AM CONTINUOUS CRUSHER OPERATOR Dulce Fisher PA-C LAB - BLOOD ORDERABLES [facility] [address], [address] [place] [address], [place] [phone] * (ABNORMAL) Glucose by meter (10/15/2023 2:13 AM CONTINUOUS CRUSHER OPERATOR) GLUCOSE BY METER POCT 171(H) 70 - 99 mg/dL 10/15/2023 2:20 AM CONTINUOUS CRUSHER OPERATOR LABORATORY POC Blood, Capillary BLOOD SPECIMEN / Unknown 10/15/2023 2:13 AM CONTINUOUS CRUSHER OPERATOR 10/15/2023 2:20 AM CONTINUOUS CRUSHER OPERATOR Michelle STERLING POCT Performing Organization Address City/[facility]/ZIP Co de Phone Number [facility] [address], [address] [place] [address], [place] [phone] * (ABNORMAL) Glucose by meter (10/14/2023 10:11 PM CONTINUOUS CRUSHER OPERATOR) GLUCOSE BY METER POCT 221(H) 70 - 99 mg/dL 10/14/2023 10:19 PM CONTINUOUS CRUSHER OPERATOR LABORATORY POC Blood, Capillary BLOOD SPECIMEN / Unknown 10/14/2023 10:11 PM CONTINUOUS CRUSHER OPERATOR 10/14/2023 10:19 PM CONTINUOUS CRUSHER OPERATOR Michelle STERLING POCT LABORATORY POC [facility] [address], [address] [place] [address], [facility] [phone] * Lactic acid whole blood (10/14/2023 6:53 PM CONTINUOUS CRUSHER OPERATOR) Pathologist [facility] Lactic Acid 1.4 0.7 - 2.0 mmol/L 10/14/2023 7:02 PM CONTINUOUS CRUSHER OPERATOR LABORATORY Blood STRUCTURE OF RIGHT HAND / Unknown Venipuncture / Unknown 10/14/2023 6:53 PM CONTINUOUS CRUSHER OPERATOR 10/14/2023 6:59 PM CONTINUOUS CRUSHER OPERATOR Dulce Fisher PA-C LAB - BLOOD ORDERABLES LABORATORY [facility] [address], [address] [address], [facility] [phone] * (ABNORMAL) Glucose by meter (10/14/2023 5:42 PM CONTINUOUS CRUSHER OPERATOR) [facility] GLUCOSE BY METER POCT 134(H) 70 - 99 mg/dL 10/14/2023 6:38 PM CONTINUOUS CRUSHER OPERATOR LABORATORY POC Blood, Capillary BLOOD SPECIMEN / Unknown 10/14/2023 5:42 PM CONTINUOUS CRUSHER OPERATOR 10/14/2023 6:38 PM CONTINUOUS CRUSHER OPERATOR Michelle Eckert MD LAB - BEAKER POCT LABORATORY POC [facility] 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 Swab NASOPHARYNGEAL STRUCTURE / Unknown Non-blood Collection / Unknown 10/14/2023 4:40 PM CONTINUOUS CRUSHER OPERATOR 10/14/2023 4:50 PM CONTINUOUS CRUSHER OPERATOR [facility] - 10/14/2023 6:12 PM CONTINUOUS CRUSHER OPERATOR Testing was performed using the Xpert Xpress CoV2/Flu/RSV Assay on the [employer] GeneXpert Instrument. This test should be ordered [...] management. This test was validated by the [facility] [employer]. These laboratories are certified under the Clinical Laboratory Improvement Amendments of 1988 (CLIA-88) as qualified to perform high complexity laboratory testing. Dulce Fisher PA-C LAB - MICRO GENERAL ORDERABLES LABORATORY [facility] Lab [address] 1st floor, [address] [place] [address], [facility] [phone] * (ABNORMAL) Troponin T, High Sensitivity (10/14/2023 2:57 PM CONTINUOUS CRUSHER OPERATOR) [facility] Troponin T, High Sensitivity 24(H) <=22 ng/L 10/14/2023 3:30 PM CONTINUOUS CRUSHER OPERATOR LABORATORY Comment: Either a High Sensitivity Troponin [...] urgent outpatient provocative testing. Blood STRUCTURE OF LEFT HAND / Unknown Venipuncture / Unknown 10/14/2023 2:57 PM CONTINUOUS CRUSHER OPERATOR 10/14/2023 3:04 PM CONTINUOUS CRUSHER OPERATOR Dulce Fisher PA-C LAB - BLOOD ORDERABLES LABORATORY [facility] [address], [address] [address], [facility] [phone] * (ABNORMAL) Lactic Acid STAT (10/14/2023 2:57 PM CONTINUOUS CRUSHER OPERATOR) Lactic Acid 3.1(H) 0.7 - 2.0 mmol/L 10/14/2023 3:15 PM CONTINUOUS CRUSHER OPERATOR LABORATORY Blood BLOOD SPECIMEN / Unknown Venipuncture / Unknown 10/14/2023 2:57 PM CONTINUOUS CRUSHER OPERATOR 10/14/2023 3:04 PM CONTINUOUS CRUSHER OPERATOR Dulce Fisher PA-C LAB - BLOOD ORDERABLES LABORATORY [facility] [address], [address] [place] [address], [place] [phone] * Blood Culture Hand, Right (10/14/2023 2:28 PM CONTINUOUS CRUSHER OPERATOR) Culture No Growth 10/19/2023 5:32 PM CONTINUOUS CRUSHER OPERATOR [facility] Blood STRUCTURE OF RIGHT HAND / Unknown Venipuncture / Unknown 10/14/2023 2:28 PM CONTINUOUS CRUSHER OPERATOR 10/14/2023 2:35 PM CONTINUOUS CRUSHER OPERATOR Narrative [facility] - 10/19/2023 5:32 PM CONTINUOUS CRUSHER OPERATOR Only an Aerobic Blood Culture Bottle was collected, interpret results with caution. Ilan Batres AB - MICRO GENERAL ORDERABLES Performing Organization Address City/[facility]/ZIP Co de Phone Number [facility] [address], Room [place] [phone], [facility] [phone] * Blood Culture Hand, Left (10/14/2023 2:20 PM CONTINUOUS CRUSHER OPERATOR) Culture No Growth 10/19/2023 5:32 PM CONTINUOUS CRUSHER OPERATOR [facility] Blood STRUCTURE OF LEFT HAND / Unknown Venipuncture / Unknown 10/14/2023 2:20 PM CONTINUOUS CRUSHER OPERATOR 10/14/2023 2:35 PM CONTINUOUS CRUSHER OPERATOR Narrative [facility] - 10/19/2023 5:32 PM CONTINUOUS CRUSHER OPERATOR Only an Aerobic Blood Culture Bottle was collected, interpret results with caution. Ilan Batres AB - OpGen GENERAL ORDERABLES Performing Organization Address [facility] Phone Number [facility] [address], [address] [address], [facility] [phone] * Chest XR, PA & LAT (10/14/2023 1:12 PM CONTINUOUS CRUSHER OPERATOR) Anatomical Region Laterality Modality Chest Digital Radiogra phy Impressions 10/14/2023 6:08 PM CONTINUOUS CRUSHER OPERATOR IMPRESSION: New finding of small-moderate left pleural fluid. New consolidation or atelectasis at the left lung base. Obscured cardiac silhouette. Right lung appears clear. ELO DIETRICH MD SYSTEM ID: [id number] Narrative 10/14/2023 6:08 PM CONTINUOUS CRUSHER OPERATOR CHEST TWO VIEWS ??10/14/2023 1:12 PM HISTORY: Chest pain. COMPARISON: CT chest 08/16/2023. Procedure Note Elo Dietrich MD - 10/14/2023 CHEST TWO VIEWS 10/14/2023 1:12 PM HISTORY: Chest pain. COMPARISON: CT chest 08/16/2023. IMPRESSION: New finding of small-moderate left pleural fluid. New consolidation or atelectasis at the left lung base. Obscured cardiac silhouette. Right lung appears clear. ELO DIETRICH MD SYSTEM ID: [id number] Baldev Burton DO IMG DIAGNO STIC IMAGING ORDERABLES * (ABNORMAL) Hemoglobin A1c (10/14/2023 12:53 PM CONTINUOUS CRUSHER OPERATOR) Hemoglobin A1C 8.4(H) <5.7 % 10/14/2023 4:04 PM CONTINUOUS CRUSHER OPERATOR LABORATORY Comment: Normal <5.7% Prediabetes 5.7-6.4% ?? Diabetes 6.5% or higher Note: Adopted from ADA consensus guidelines. Blood STRUCTURE OF LEFT UPPER LIMB / Unknown Venipuncture / Unknown 10/14/2023 12:53 PM CONTINUOUS CRUSHER OPERATOR 10/14/2023 12:57 PM CONTINUOUS CRUSHER OPERATOR Dulce Fisher PA-C LAB - BLOOD ORDERABLES LABORATORY [facility] [address] 1[address], [address] [place] [address], [facility] [phone] * Magnesium (10/14/2023 12:53 PM CONTINUOUS CRUSHER OPERATOR) Magnesium 1.8 1.7 - 2.3 mg/dL 10/14/2023 3:40 PM CONTINUOUS CRUSHER OPERATOR LABORATORY Blood STRUCTURE OF LEFT UPPER LIMB / Unknown Venipuncture / Unknown 10/14/2023 12:53 PM CONTINUOUS CRUSHER OPERATOR 10/14/2023 12:57 PM CONTINUOUS CRUSHER OPERATOR Dulce Fisher PA-C LAB - BLOOD ORDERABLES LABORATORY [facility] [address], [address] [place] [address], [facility] [phone] * Procalcitonin (10/14/2023 12:53 PM CONTINUOUS CRUSHER OPERATOR) [facility] Procalcitonin 0.07 <0.50 ng/mL 10/14/2023 2:31 PM CONTINUOUS CRUSHER OPERATOR LABORATORY Comment: Interpretation and Recommendations <0.5 ng/mL: Systemic bacterial infection unlikely. Local bacterial infection is possible. 0.5-1.99 ng/mL: Systemic bacterial infection possible, but various other conditions are known to induce PCT as well. >=2.00 ng/mL: Systemic bacterial infection likely, unless other causes are known. Decision to start antibiotics should not be based on procalcitonin level alone. See Procalcitonin Guidance document for more details. [email or web address] Factors that may affect PCT levels (not [...] Unknown Venipuncture / Unknown 10/14/2023 12:53 PM CONTINUOUS CRUSHER OPERATOR 10/14/2023 12:57 PM CONTINUOUS CRUSHER OPERATOR Dulce Fisher PA-C LAB - BLOOD ORDERABLES LABORATORY [facility] [address], [address] [place] [address], [facility] [phone] * Extra Blue Top Tube (10/14/2023 12:53 PM CONTINUOUS CRUSHER OPERATOR) Pathologist [facility] Hold Specimen JI 10/14/2023 2:04 PM CONTINUOUS CRUSHER OPERATOR LABORATORY Blood STRUCTURE OF LEFT UPPER LIMB / Unknown Venipuncture / Unknown 10/14/2023 12:53 PM CONTINUOUS CRUSHER OPERATOR 10/14/2023 12:57 PM CONTINUOUS CRUSHER OPERATOR Baldev Burton DO LAB - BLOO D ORDERABLES LABORATORY [facility] [address], [address] [place] [address], [facility] [phone] * (ABNORMAL) CBC with platelets and differential (10/14/2023 12:53 PM CONTINUOUS CRUSHER OPERATOR) [facility] WBC Count 18.5(H) 4.0 - 11.0 10e3/uL 10/14/2023 1:02 PM [facility] RBC Count 4.25(L) 4.40 - 5.90 10e6/uL 10/14/2023 1:02 PM [facility] Hemoglobin 13.1(L) 13.3 - 17.7 g/dL 10/14/2023 1:02 PM [facility] Hematocrit 40.0 40.0 - 53.0 % 10/14/2023 1:02 PM [facility] MCV 94 78 - 100 fL 10/14/2023 1:02 PM [facility] MCH 30.8 26.5 - 33.0 pg 10/14/2023 1:02 PM [facility] MCHC 32.8 31.5 - 36.5 g/dL 10/14/2023 1:02 PM [facility] RDW 12.7 10.0 - 15.0 % 10/14/2023 1:02 PM [facility] Platelet Count 574(H) 150 - 450 10e3/uL 10/14/2023 1:02 PM [facility] % Neutrophils 83 % 10/14/2023 1:02 PM CONTINUOUS CRUSHER OPERATOR LABORATORY % Lymphocytes 10 % 10/14/2023 1:02 PM CONTINUOUS CRUSHER OPERATOR LABORATORY % Monocytes 6 % 10/14/2023 1:02 PM [facility] % Eosinophils 0 % 10/14/2023 1:02 PM [facility] % Basophils 0 % 10/14/2023 1:02 PM CONTINUOUS CRUSHER OPERATOR LABORATORY % Immature Granulocytes 1 % 10/14/2023 1:02 PM [facility] NRBCs per 100 WBC 0 <1 /100 024 1:02 PM [facility] Absolute Neutrophils 15.2(H) 1.6 - 8.3 10e3/uL 10/14/2023 1:02 PM [facility] Absolute Lymphocytes 1.9 0.8 - 5.3 10e3/uL 10/14/2023 1:02 PM [facility] Absolute Monocytes 1.1 0.0 - 1.3 10e3/uL 10/14/2023 1:02 PM [facility] Absolute Eosinophils 0.0 0.0 - 0.7 10e3/uL 10/14/2023 1:02 PM [facility] Absolute Basophils 0.1 0.0 - 0.2 10e3/uL 10/14/2023 1:02 PM [facility] Absolute Immature Granulocytes 0.1 <=0.4 10e3/uL 10/14/2023 1:02 PM [facility] Absolute NRBCs 0.0 10e3/uL 10/14/2023 1:02 PM [facility] Blood STRUCTURE OF LEFT UPPER LIMB / Unknown Venipuncture / Unknown 10/14/2023 12:53 PM CONTINUOUS CRUSHER OPERATOR 10/14/2023 12:57 PM CONTINUOUS CRUSHER OPERATOR Baldev Burton DO LAB - BLOO D ORDERABLES LABORATORY [facility] Lab [address] 1[address], [address] [place] [address], [facility] [phone] * (ABNORMAL) Troponin T, High Sensitivity (10/14/2023 12:53 PM CONTINUOUS CRUSHER OPERATOR) Troponin T, High Sensitivity 25(H) <=22 ng/L 10/14/2023 1:22 PM CONTINUOUS CRUSHER OPERATOR LABORATORY Comment: Either a High Sensitivity Troponin [...] urgent outpatient provocative testing. Blood STRUCTURE OF LEFT UPPER LIMB / Unknown Venipuncture / Unknown 10/14/2023 12:53 PM CONTINUOUS CRUSHER OPERATOR 10/14/2023 12:57 PM CONTINUOUS CRUSHER OPERATOR Baldev Burton DO LAB - BLOO D ORDERABLES LABORATORY [facility] [address], [address] [place] [address], [facility] [phone] * Lipase (10/14/2023 12:53 PM CONTINUOUS CRUSHER OPERATOR) Pathologist [facility] Lipase 60 13 - 60 U/L 10/14/2023 1:22 PM CONTINUOUS CRUSHER OPERATOR LABORATORY Blood STRUCTURE OF LEFT UPPER LIMB / Unknown Venipuncture / Unknown 10/14/2023 12:53 PM CONTINUOUS CRUSHER OPERATOR 10/14/2023 12:57 PM CONTINUOUS CRUSHER OPERATOR Baldev Burton DO LAB - BLOO D ORDERABLES LABORATORY [facility] [address], [address] [place] [address], [facility] [phone] * (ABNORMAL) Comprehensive metabolic panel (10/14/2023 12:53 PM CONTINUOUS CRUSHER OPERATOR) Sodium 134(L) 135 - 145 mmol/L 10/14/2023 1:22 PM [facility] Comment:Reference intervals for this test were updated on 05/28/2023 to more accurately reflect our healthy population. There may be differences in the flagging of prior results with similar values performed with this method. Interpretation of those prior results can be made in the context of the updated reference intervals. Potassium 4.0 3.4 - 5.3 mmol/L 10/14/2023 1:22 PM [facility] Carbon Dioxide (CO2) 29 22 - 29 mmol/L 10/14/2023 1:22 PM [facility] Anion Gap 12 7 - 15 mmol/L 10/14/2023 1:22 PM [facility] Urea Nitrogen 30.1(H) 8.0 - 23.0 mg/dL 10/14/2023 1:22 PM [facility] Creatinine 1.49(H) 0.67 - 1.17 mg/dL 10/14/2023 1:22 PM [facility] GFR Estimate 46(L) >60 mL/min/1. 73m2 10/14/2023 1:22 PM [facility] Calcium 9.2 8.8 - 10.2 mg/dL 10/14/2023 1:22 PM [facility] Chloride 93(L) 98 - 107 mmol/L 10/14/2023 1:22 PM [facility] Glucose 201(H) 70 - 99 mg/dL 10/14/2023 1:22 PM [facility] Alkaline Phosphatase 92 40 - 150 U/L 10/14/2023 1:22 PM [facility] Comment:Reference intervals for this test were updated on 07/16/2023 to more accurately reflect our healthy population. There may be differences in the flagging of prior results with similar values performed with this method. Interpretation of those prior results can be made in the context of the updated reference intervals. AST 65(H) 0 - 45 U/L 10/14/2023 1:22 PM [facility] Comment:Reference intervals for this test were updated on 02/11/2023 to more accurately reflect our healthy population. There may be differences in the flagging of prior results with similar values performed with this method. Interpretation of those prior results can be made in the context of the updated reference intervals. ALT 118(H) 0 - 70 U/L 10/14/2023 1:22 PM [facility] Comment:Reference intervals for this test were updated on 02/11/2023 to more accurately reflect our healthy population. There may be differences in the flagging of prior results with similar values performed with this method. Interpretation of those prior results can be made in the context of the updated reference intervals. Protein Total 6.9 6.4 - 8.3 g/dL 10/14/2023 1:22 PM [facility] Albumin 3.4(L) 3.5 - 5.2 g/dL 10/14/2023 1:22 PM [facility] Bilirubin Total 0.6 <=1.2 mg/dL 10/14/2023 1:22 PM [facility] Blood STRUCTURE OF LEFT UPPER LIMB / Unknown Venipuncture / Unknown 10/14/2023 12:53 PM CONTINUOUS CRUSHER OPERATOR 10/14/2023 12:57 PM [facility] Baldev Burton DO LAB - BLOO D ORDERABLES LABORATORY [facility] [address], [address] [place] [address], [facility] [phone] * EKG 12 lead (10/14/2023 12:41 PM CONTINUOUS CRUSHER OPERATOR) Systolic Blood Pressure mmHg RADIOLOGY RESULTS Diastolic Blood Pressure mmHg RADIOLOGY RESULTS Ventricular Rate 103 BPM RAD IOLOGY RESULTS Atrial Rate BPM RADIOLOG Y RESULTS AZ Interval ms RADIOLOG Y RESULTS QRS Duration 86 ms RADIOLO GY RESULTS QT 290 ms RADIOLOGY RESULTS QTc 379 ms RADIOLOGY RESULTS P Potter degrees RADIOLOGY RESULTS R AXIS -40 degrees RADIOLOGY RESULTS T Potter 100 degrees RADIOLOGY RESULTS Interpretation ECG Atrial fibrillation with rapid ventricular response Left axis deviation Possible Anterior infarct , age undetermined Abnormal ECG When compared with ECG of 01-OCT-2023 10:46, Atrial fibrillation has replaced Atrial flutter Non-specific change in ST segment in Inferior leads Nonspecific T wave abnormality no longer evident in Inferior leads T wave inversion no longer evident in Lateral leads Confirmed by GENERATED REPORT, COMPUTER ([id number]), purchase request editor ESTEVAN MCDANIELS ([id number]) on 10/14/2023 3:56:41 PM RADIOLOGY RESULTS 10/14/2023 12:4 1 PM CONTINUOUS CRUSHER OPERATOR 10/14/2023 3:56 PM CONTINUOUS CRUSHER OPERATOR Baldev Burton DO ECG ORDERA BLES RADIOLOGY RESULTS documented in this encounter Visit Diagnoses Diagnosis History of atrial fibrillation- Primary Personal history of other diseases of circulatory system Hypoglycemia Hypoglycemia, unspecified Community acquired pneumonia, unspecified laterality Episode of confusion Chest pain, unspecified type Weakness Other malaise and fatigue History of atrial fibrillation Personal history of other diseases of circulatory system Calcification of coronary 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, with long-term current use of insulin (H) Weakness Other malaise and fatigue Hypoglycemia Hypoglycemia, unspecified Episode of confusion Chest pain, unspecified type Community acquired pneumonia, unspecified laterality Chronic atrial fibrillation (H) Atrial fibrillation documented in this encounter Admitting Diagnoses Diagnosis History of atrial fibrillation Personal history of other diseases of circulatory system documented in this encounter Administered Medications Inactive Administered Medications - up to 3 most recent administrations Medication Order MAR Action Action Date Dose Rate Site acetaminophen (TYLENOL) Suppository 650 mg 650 mg, Rectal, EVERY 4 HOURS PRN, mild pain, other, and adjunct with moderate or severe pain or per patient request, Starting on 10/14/23 at 1736, Alternate with ibuprofen if ordered. Maximum acetaminophen dose from all sources = 75 mg/kg/day not to exceed 4 grams/day. acetaminophen (TYLENOL) tablet 650 mg 650 mg, Oral, EVERY 4 HOURS PRN, mild pain, other, and adjunct with moderate or severe pain or per patient request, Starting on 10/14/23 at 1736, Alternate with ibuprofen if ordered. Maximum acetaminophen dose from all sources = 75 mg/kg/day not to exceed 4 grams/day. $Given 10/15/2023 7:36 PM CONTINUOUS CRUSHER OPERATOR 650 mg $Given 10/14/2023 6:17 PM CONTINUOUS CRUSHER OPERATOR 650 mg albuterol (PROVENTIL) neb solution 2.5 mg 2.5 mg (3 mL), Nebulization, EVERY 2 HOURS PRN, wheezing, shortness of breath, Starting on Sat10/14/23 at 1736 azithromycin (ZITHROMAX) 250 mg in sodium chloride 0.9 % 250 mL intermittent infusion Routine, 250 mg, Intravenous, EVERY 24 HOURS, First dose on Sat10/15/23 at 1400, For 4 doses, Schedule subsequent doses 24 hours from first dose. May switch to oral when taking PO and not in ICU., Indications: Community Acquired Pneumonia $New Bag 10/15/2023 3:04 PM CONTINUOUS CRUSHER OPERATOR 250 mg cefTRIAXone (ROCEPHIN) 2 g vial to attach to NS 100 ml bag for ADULTS or NS 50 ml bag for PEDS STAT, 2 g, Intravenous, EVERY 24 HOURS, First dose on Sat10/15/23 at 1300, For 6 days, First dose STAT and to be started in the unit ordered (ED) PRIOR to transfer or admission. , Indications: Community Acquired Pneumonia $New Bag 10/16/2023 2:13 PM CONTINUOUS CRUSHER OPERATOR 2 g $New Bag 10/15/2023 1:01 PM CONTINUOUS CRUSHER OPERATOR 2 g dextrose 50 % injection 25-50 mL 25-50 mL, Intravenous, EVERY 15 MIN PRN, low blood sugar, Administer over 1-5 Minutes, Starting on Sat10/14/23 at 1736, Use if have IV access, BG less than 70 mg/dL and meet dose criteria below: Dose if conscious and alert (or disorientated) and NPO = 25 mL Dose if unconscious / not alert = 50 mL Give first dose for initial blood glucose less than 70 mg/dL. If blood glucose at 15 minute recheck is less than or equal to 80 mg/dL continue to administer carbohydrate treatment every 15 minutes, as needed, based on blood glucose and assessment parameters until blood glucose level is above 80 mg/dL x 2 consecutive 15 minute checks. Vesicant. flumazenil (ROMAZICON) injection 0.2 mg 0.2 mg, Intravenous, EVERY 1 MIN PRN, benzodiazepine reversal, over sedation, Administer over 1 Minutes, Starting on Sat10/16/23 at 1550, For 12 hours, Give over 15 seconds. If inadequate response after 45 seconds, may repeat up to a MAX total dose of 1 mg) Irritant. Use with caution in patients on benzodiazepine therapy. gabapentin (NEURONTIN) capsule 100 mg 100 mg, Oral, AT BEDTIME, First dose on Sat10/14/23 at 2200 $Given 10/15/2023 9:31 PM CONTINUOUS CRUSHER OPERATOR 100 mg $Given 10/14/2023 10:09 PM CONTINUOUS CRUSHER OPERATOR 100 mg glucagon injection 1 mg 1 mg, Subcutaneous, EVERY 15 MIN PRN, low blood sugar, May repeat x 1 only, Starting on Sat10/14/23 at 1736, May give SQ or IM. ONLY use glucagon IF patient has NO IV access AND is UNABLE to swallow AND blood glucose is LESS than or EQUAL to 50 mg/dL. glucose gel 15-30 g 15-30 g, Oral, EVERY 15 MIN PRN, low blood sugar, Starting on Sat10/14/23 at 1736, Give first dose for initial blood glucose less than 70 mg/dL per the dosing instructions below. If blood glucose at 15 minute rechecks is still less than or equal to 80 mg/dL, continue to administer doses per blood glucose parameters every 15 minutes, as needed, until blood glucose level is at or above 80 mg/dL x 2 consecutive 15 minute checks. Dosing Instructions: ~If patient is conscious and able to swallow and NO enteral tube For initial BG 51-69mg/dL OR 15 minute recheck BG 51- 80 mg/dL - give 15 g For BG less than or equal to 50 mg/dL - give 30 g ~ If Enteral tube For initial BG 51-69mg/dL OR 15 minute recheck BG 51- 80 mg/dL - give apple juice 120 mL (4 oz or 15 g of CHO) via enteral tube For BG less than or equal to 50 mg/dL - Give apple juice 240 mL (8 oz or 30 g of CHO) via enteral tube ~Oral gel is preferable for conscious and able to swallow patient. ~IF gel unavailable or patient refuses may provide apple juice per Enteral tube dosing instructions. Document juice on I and O flowsheet. guaiFENesin (ROBITUSSIN) 20 mg/mL solution 200 mg 200 mg, Oral, EVERY 4 HOURS PRN, other, secretion expectorant, Starting on Sat10/14/23 at 1736 hydrALAZINE (APRESOLINE) injection 10 mg 10 mg, Intravenous, EVERY 4 HOURS PRN, high blood pressure, for systolic BP greater than 180 mmHg, Administer over 1 Minutes, Starting on Sat10/14/23 at 1736 hydrALAZINE (APRESOLINE) tablet 10 mg 10 mg, Oral, EVERY 4 HOURS PRN, high blood pressure, for systolic BP greater than 180 mmHg, Starting on Sat10/14/23 at 1736 insulin aspart (NovoLOG) injection (RAPID ACTING) 1-7 Units, Subcutaneous, 3 TIMES DAILY BEFORE MEALS, First dose on Sat10/14/23 at 1800, Correction Scale - MEDIUM INSULIN RESISTANCE DOSING Do Not give Correction Insulin if Pre-Meal BG less than 140. For Pre-Meal BG 140 - 189 give 1 unit. For Pre-Meal BG 190 - 239 give 2 units. For Pre-Meal BG 240 - 289 give 3 units. For Pre-Meal BG 290 - 339 give 4 units. For Pre-Meal BG 340- 399 give 5 units. For Pre-Meal BG 400-449 give 6 units For Pre-Meal BG greater than or equal to 450 give 7 units. To be given with prandial insulin, and based on pre-meal blood glucose. Administering insulin within 5 minutes of the start of the meal is ideal. Administer insulin no more than 30 minutes after the start of the meal, unless directed otherwise by provider. Notify provider if glucose greater than or equal to 350 mg/dL after administration of correction dose. $Given 10/15/2023 6:43 PM CONTINUOUS CRUSHER OPERATOR 2 Units insulin aspart (NovoLOG) injection (RAPID ACTING) 1-5 Units, Subcutaneous, AT BEDTIME, First dose on Sat10/14/23 at 2200, MEDIUM INSULIN RESISTANCE DOSING Do Not give Bedtime Correction Insulin if BG less than 200. For BG 200 - 249 give 1 units. For BG 250 - 299 give 2 units. For BG 300 - 349 give 3 units. For BG 350 -399 give 4 units. For BG greater than or equal to 400 give 5 units. Notify provider if glucose greater than or equal to 350 mg/dL after administration of correction dose. $Given 10/15/2023 9:31 PM CONTINUOUS CRUSHER OPERATOR 1 Units $Given 10/14/2023 10:46 PM CONTINUOUS CRUSHER OPERATOR 1 Units insulin glargine (LANTUS PEN) injection 30 Units 30 Units, Subcutaneous, AT BEDTIME, First dose on Sat10/14/23 at 2200 $Given 10/15/2023 9:31 PM CONTINUOUS CRUSHER OPERATOR 30 Units $Given 10/14/2023 10:46 PM CONTINUOUS CRUSHER OPERATOR 30 Units losartan (COZAAR) tablet 100 mg 100 mg, Oral, DAILY WITH SUPPER, First dose on Sat10/14/23 at 1800, HOLD for SBP <110 $Given 10/15/2023 6:06 PM CONTINUOUS CRUSHER OPERATOR 10 0 mg $Given 10/14/2023 6:17 PM CONTINUOUS CRUSHER OPERATOR 100 mg melatonin tablet 5 mg 5 mg, Oral, AT BEDTIME PRN, sleep, Starting on Sat10/15/23 at 1859 metoprolol succinate ER (TOPROL XL) 24 hr tablet 25 mg 25 mg, Oral, DAILY, First dose on Sat10/15/23 at 1200, DO NOT CRUSH. Tablet may be split in half along score line. $Given 10/15/2023 1:01 PM CONTINUOUS CRUSHER OPERATOR 25 mg mirabegron (MYRBETRIQ) 24 hr tablet 50 mg 50 mg, Oral, DAILY, First dose on Sat10/14/23 at 1800, Do not chew, crush or split tablets. $Given 10/15/2023 6:0 6 PM CONTINUOUS CRUSHER OPERATOR 50 mg $Given 10/14/2023 6:17 PM CONTINUOUS CRUSHER OPERATOR 50 mg naloxone (NARCAN) injection 0.2 mg 0.2 mg, Intravenous, EVERY 2 MIN PRN, opioid reversal, Starting on Sat10/14/23 at 1748, Administer intravenous route when available and notify provider when administered. For unintended sedation or respiratory depression if all of the below criteria are met: ~ respiratory rate LESS than or EQUAL to 8. ~SaO2 less than 92% and or/end-tidal CO2 is greater than 50. ~ the patient is receiving an opioid, has unintended sedations assessed as RASS (-3), and is currently not on mechanical ventilation. RASS scale moderate (-3) is movement or eye opening to voice but no eye contact. Patient Monitoring Once the patient has demonstrated a response to the naloxone, continue to monitor respiratory rate, depth, oxygen saturation and end-tidal CO2 (if available) every 15 minutes x 2, then every 30 minutes x 2, then every 1 hour x 1 after each naloxone dose. Consider transfer to ICU if patient respiratory parameters have not improved after 4 naloxone doses. naloxone (NARCAN) injection 0.2 mg 0.2 mg, Intramuscular, EVERY 2 MIN PRN, opioid reversal, Starting on Sat10/14/23 at 1748, Administer intramuscular if an intravenous route is not available and notify provider when administered. For unintended sedation or respiratory depression if all of the below criteria are met: ~ respiratory rate LESS than or EQUAL to 8. ~SaO2 less than 92% and or/end-tidal CO2 is greater than 50. ~ the patient is receiving an opioid, has unintended sedations assessed as RASS (-3), and is currently not on mechanical ventilation. RASS scale moderate (-3) is movement or eye opening to voice but no eye contact. Patient Monitoring Once the patient has demonstrated a response to the naloxone, continue to monitor respiratory rate, depth, oxygen saturation and end-tidal CO2 (if available) every 15 minutes x 2, then every 30 minutes x 2, then every 1 hour x 1 after each naloxone dose. Consider transfer to ICU if patient respiratory parameters have not improved after 4 naloxone doses. naloxone (NARCAN) injection 0.4 mg 0.4 mg, Intravenous, EVERY 2 MIN PRN, opioid reversal, Starting on Sat10/14/23 at 1748, Administer intravenous route when available and notify provider when administered. For unintended sedation or respiratory depression if all of the below criteria are met: ~ respiratory rate LESS than or EQUAL to 8. ~ SaO2 less than 92% and or/end-tidal CO2 is greater than 50. ~ the patient is receiving an opioid, has unintended sedation assessed as RASS (-4) or (-5) and patient is currently not on mechanical ventilation. RASS scale (-4) is deep sedation with no response to voice but movement or eye opening to physical stimulation. RASS scale (-5) is unarousable. Patient Monitoring Once the patient has demonstrated a response to the naloxone, continue to monitor respiratory rate, depth, oxygen saturation and end-tidal CO2 (if available) every 15 minutes x 2, then every 30 minutes x 2, then every 1 hour x 1 after each naloxone dose. Consider transfer to ICU if patient respiratory parameters have not improved after 4 naloxone doses. naloxone (NARCAN) injection 0.4 mg 0.4 mg, Intramuscular, EVERY 2 MIN PRN, opioid reversal, Starting on Sat10/14/23 at 1748, Administer intramuscular if an intravenous route is not available and notify provider when administered. For unintended sedation or respiratory depression if all of the below criteria are met: ~ respiratory rate LESS than or EQUAL to 8. ~ SaO2 less than 92% and or/end-tidal CO2 is greater than 50. ~ the patient is receiving an opioid, has unintended sedation assessed as RASS (-4) or (-5) and patient is currently not on mechanical ventilation. RASS scale (-4) is deep sedation with no response to voice but movement or eye opening to physical stimulation. RASS scale (-5) is unarousable. Patient Monitoring Once the patient has demonstrated a response to the naloxone, continue to monitor respiratory rate, depth, oxygen saturation and end-tidal CO2 (if available) every 15 minutes x 2, then every 30 minutes x 2, then every 1 hour x 1 after each naloxone dose. Consider transfer to ICU if patient respiratory parameters have not improved after 4 naloxone doses. nitroGLYcerin (NITROSTAT) sublingual tablet 0.4 mg 0.4 mg, Sublingual, EVERY 5 MIN PRN, chest pain, Starting on Sat10/14/23 at 1912 $Given 10/14/2023 11:53 PM CONTINUOUS CRUSHER OPERATOR 0.4 m g ondansetron (ZOFRAN ODT) ODT tab 4 mg 4 mg, Oral, EVERY 6 HOURS PRN, nausea, vomiting, Starting on Sat10/14/23 at 1736, This is Step 1 of nausea and vomiting management. If nausea not resolved in 15 minutes, go to Step 2 prochlorperazine (COMPAZINE). With dry hands, peel back foil backing and gently remove tablet. Do not push oral disintegrating tablet through foil backing. Administer immediately on tongue and oral disintegrating tablet dissolves in seconds, then swallow with saliva. Liquid not required. ondansetron (ZOFRAN) injection 4 mg 4 mg, Intravenous, EVERY 6 HOURS PRN, nausea, vomiting, Administer over 2-5 Minutes, Starting on Sat10/14/23 at 1736, Give IF patient unable to tolerate oral medication. This is Step 1 of nausea and vomiting management. If nausea not resolved in 15 minutes, go to Step 2 prochlorperazine (COMPAZINE). Irritant. prochlorperazine (COMPAZINE) injection 5 mg 5 mg, Intravenous, EVERY 6 HOURS PRN, nausea, vomiting, Administer over 1-2 Minutes, Starting on Sat10/14/23 at 1736, Give IF patient unable to tolerate oral medication. This is Step 2 of nausea and vomiting management. Give if nausea not resolved 15 minutes after giving ondansetron (ZOFRAN). If nausea not resolved in 15-30 minutes, Notify provider. prochlorperazine (COMPAZINE) suppository 12.5 mg 12.5 mg, Rectal, EVERY 12 HOURS PRN, nausea, vomiting, Starting on Sat10/14/23 at 1736, This is Step 2 of nausea and vomiting management. Give if nausea not resolved 15 minutes after giving ondansetron (ZOFRAN). If nausea not resolved in 15-30 minutes, Notify provider. prochlorperazine (COMPAZINE) tablet 5 mg 5 mg, Oral, EVERY 6 HOURS PRN, vomiting, Starting on Sat10/14/23 at 1736, This is Step 2 of nausea and vomiting management. Give if nausea not resolved 15 minutes after giving ondansetron (ZOFRAN). If nausea not resolved in 15-30 minutes, Notify provider. rivaroxaban ANTICOAGULANT (XARELTO) tablet 20 mg 20 mg, Oral, DAILY WITH SUPPER, First dose on Sat10/14/23 at 1900, Indications: Afib-non valvular $Given 10/15/2023 6:06 PM CONTINUOUS CRUSHER OPERATOR 20 mg $Given 10/14/2023 7:54 PM CONTINUOUS CRUSHER OPERATOR 20 mg senna-docusate (SENOKOT-S/PERICOLACE) 8.6-50 MG per tablet 1 tablet 1 tablet, Oral, 2 TIMES DAILY PRN, constipation, Starting on Sat10/14/23 at 1736, If no bowel movement in 24 hours, increase to 2 tablets by mouth. IF more than 1 constipation PRN medication is ordered, administer step-wong as indicated, moving to the next step ONLY if prior step ineffective. Step 1: senna-docusate (SENOKOT-S; PERICOLACE) OR bisacodyl (DULCOLAX) EC tablet Step 2: polyethylene glycol (MIRALAX/GLYCOLAX) Step 3: bisacodyl (DULCOLAX) suppository Step 4: enema Hold for loose stools. senna-docusate (SENOKOT-S/PERICOLACE) 8.6-50 MG per tablet 1 tablet 1 tablet, Oral, 2 TIMES DAILY, First dose on Sat10/14/23 at 2000, If no bowel movement in 24 hours, increase to 2 tablets by mouth. Hold for loose stools. $Given 10/15/2023 7:40 AM CONTINUOUS CRUSHER OPERATOR 1 tablet $Given 10/14/2023 7:54 PM CONTINUOUS CRUSHER OPERATOR 1 tablet senna-docusate (SENOKOT-S/PERICOLACE) 8.6-50 MG per tablet 2 tablet 2 tablet, Oral, 2 TIMES DAILY PRN, constipation, Starting on Sat10/14/23 at 1736, IF more than 1 constipation PRN medication is ordered, administer step-wong as indicated, moving to the next step ONLY if prior step ineffective. Step 1: senna-docusate (SENOKOT-S; PERICOLACE) OR bisacodyl (DULCOLAX) EC tablet Step 2: polyethylene glycol (MIRALAX/GLYCOLAX) Step 3: bisacodyl (DULCOLAX) suppository Step 4: enema Hold for loose stools. senna-docusate (SENOKOT-S/PERICOLACE) 8.6-50 MG per tablet 2 tablet 2 tablet, Oral, 2 TIMES DAILY, First dose on Sat10/14/23 at 2000, Hold for loose stools. sodium chloride (PF) 0.9% PF flush 3 mL 3 mL, Intracatheter, EVERY 8 HOURS, First dose on Sat10/14/23 at 1800, And Q1H PRN, to lock peripheral IV dormant line. Positive 10/16/2023 9:16 AM CONTINUOUS CRUSHER OPERATOR 3 mLs $Given 10/15/2023 6:43 PM CONTINUOUS CRUSHER OPERATOR 3 mLs $Given 10/15/2023 11:16 AM CONTINUOUS CRUSHER OPERATOR 3 mLs documented in this encounter Active and Recently Administered Medications Times are shown in CONTINUOUS CRUSHER OPERATOR. Scheduled Medication Order 10/14/2023 10/15/2023 10/16/2023 amLODIPine (NORVASC) tablet 5 mg (CANCELED) 5 mg, Oral, AT BEDTIME, First dose on Sat10/14/23 at 2200, HOLD for SBP <110 2209 ($Given - Provider: Lauryn Sanchez RN) azithromycin (ZITHROMAX) 250 mg in sodium chloride 0.9 % 250 mL intermittent infusion Routine, 250 mg, Intravenous, EVERY 24 HOURS, First dose on Sat10/15/23 at 1400, For 4 doses, Schedule subsequent doses 24 hours from first dose. May switch to oral when taking PO and not in ICU., Indications: Community Acquired Pneumonia 1504 ($New Bag - Provider: Heather Parada RN) 1410 (Not Given - Provider: Katelyn Nagel RN - Reason: Order to hold this dose - Comment: Per Dr. Post don't give this dose) azithromycin (ZITHROMAX) 500 mg vial to attach to NS 250 mL bag (COMPLETED) STAT, 500 mg, Intravenous, ONCE, On Sat10/14/23 at 1355, For 1 dose, Indications: Community Acquired Pneumonia 1542 ($New Bag - Provider: Cyndee Miller RN)1645 (Stopped - Provider: Cyndee Miller RN) cefTRIAXone (ROCEPHIN) 2 g vial to attach to NS 100 ml bag for ADULTS or NS 50 ml bag for PEDS (COMPLETED) STAT, 2 g, Intravenous, ONCE, On Sat10/14/23 at 1355, For 1 dose, Indications: Community Acquired Pneumonia 1440 ($New Bag - Provider: Kala Chávez RN)1521 (Stopped - Provider: Kala Chávez RN) cefTRIAXone (ROCEPHIN) 2 g vial to attach to NS 100 ml bag for ADULTS or NS 50 ml bag for PEDS STAT, 2 g, Intravenous, EVERY 24 HOURS, First dose on Sat10/15/23 at 1300, For 6 days, First dose STAT and to be started in the unit ordered (ED) PRIOR to transfer or admission. , Indications: Community Acquired Pneumonia 1301 ($New Bag - Provider: Heather Parada RN) 1413 ($New Bag - Provider: Dawn Delgado RN) gabapentin (NEURONTIN) capsule 100 mg 100 mg, Oral, AT BEDTIME, First dose on Sat10/14/23 at 2200 2209 ($Given - Provider: Lauryn Sanchez RN) 2131 ($Given - Provider: Lauryn Sanchez RN) insulin aspart (NovoLOG) injection (RAPID ACTING) 1-7 Units, Subcutaneous, 3 TIMES DAILY BEFORE MEALS, First dose on Sat10/14/23 at 1800, Correction Scale - MEDIUM INSULIN RESISTANCE DOSING Do Not give Correction Insulin if Pre-Meal BG less than 140. For Pre-Meal BG 140 - 189 give 1 unit. For Pre-Meal BG 190 - 239 give 2 units. For Pre-Meal BG 240 - 289 give 3 units. For Pre-Meal BG 290 - 339 give 4 units. For Pre-Meal BG 340- 399 give 5 units. For Pre-Meal BG 400-449 give 6 units For Pre-Meal BG greater than or equal to 450 give 7 units. To be given with prandial insulin, and based on pre-meal blood glucose. Administering insulin within 5 minutes of the start of the meal is ideal. Administer insulin no more than 30 minutes after the start of the meal, unless directed otherwise by provider. Notify provider if glucose greater than or equal to 350 mg/dL after administration of correction dose. 1820 (Not Given - Provider: Heather Parada RN - Reason: Order parameters not met) 0747 (Not Given - Provider: Heather Parada RN - Reason: Order parameters not met)1309 (Not Given - Provider: Heather Parada RN - Reason: Order parameters not met)1843 ($Given - Provider: Heather Parada RN) 0717 (Not Given - Provider: Katelyn Nagel RN - Reason: NPO)1252 (Not Given - Provider: Katelyn Nagel RN - Reason: Patient/family refused)1700 (Canceled Entry - Provider: Orders Generic Provider - Comment: Automatically canceled at discontinue of medication order) insulin aspart (NovoLOG) injection (RAPID ACTING) 1-5 Units, Subcutaneous, AT BEDTIME, First dose on Sat10/14/23 at 2200, MEDIUM INSULIN RESISTANCE DOSING Do Not give Bedtime Correction Insulin if BG less than 200. For BG 200 - 249 give 1 units. For BG 250 - 299 give 2 units. For BG 300 - 349 give 3 units. For BG 350 -399 give 4 units. For BG greater than or equal to 400 give 5 units. Notify provider if glucose greater than or equal to 350 mg/dL after administration of correction dose. 2246 ($Given - Provider: Lauryn Sanchez RN) 2130 ($Given - Provider: Lauryn Sanchez RN) insulin glargine (LANTUS PEN) injection 30 Units 30 Units, Subcutaneous, AT BEDTIME, First dose on Sat10/14/23 at 2200 2246 ($Given - Provider: Lauryn Sanchez RN) 213 ($Given - Provider: Lauryn Sanchez RN) losartan (COZAAR) tablet 100 mg 100 mg, Oral, DAILY WITH SUPPER, First dose on Sat10/14/23 at 1800, HOLD for SBP <110 181 ($Given - Provider: Heather Parada RN) 1806 ($Given - Provider: Heather Parada RN) 1700 (Canceled Entry - Provider: Orders Generic Provider - Comment: Automatically canceled at discontinue of medication order) metoprolol succinate ER (TOPROL XL) 24 hr tablet 25 mg 25 mg, Oral, DAILY, First dose on Sat10/15/23 at 1200, DO NOT CRUSH. Tablet may be split in half along score line. 1301 ($Given - Provider: Heather Parada RN) 0848 (Not Given - Provider: Katelyn Nagel RN - Reason: Transfer to a procedural area) mirabegron (MYRBETRIQ) 24 hr tablet 50 mg 50 mg, Oral, DAILY, First dose on Sat10/14/23 at 1800, Do not chew, crush or split tablets. 181 ($Given - Provider: Heather Parada RN) 1806 ($Given - Provider: Heather Parada RN) 1800 (Canceled Entry - Provider: Orders Generic Provider - Comment: Automatically canceled at discontinue of medication order) rivaroxaban ANTICOAGULANT (XARELTO) tablet 20 mg 20 mg, Oral, DAILY WITH SUPPER, First dose on Sat10/14/23 at 1900, Indications: Afib-non valvular 1953 ($Given - Provider: Lauryn Sanchez RN) 180 ($Given - Provider: Heather Parada RN) 1700 (Canceled Entry - Provider: Orders Generic Provider - Comment: Automatically canceled at discontinue of medication order) senna-docusate (SENOKOT-S/PERICOLACE) 8.6-50 MG per tablet 1 tablet(Linked Group 1) 1 tablet, Oral, 2 TIMES DAILY, First dose on Sat10/14/23 at 2000, If no bowel movement in 24 hours, increase to 2 tablets by mouth. Hold for loose stools. 1953 ($Given - Provider: Lauryn Sanchez RN) 0740 ($Given - Provider: Heather Parada RN)1936 (Not Given - Provider: Lauryn Sanchez RN - Reason: Patient/family refused) 0847 (Not Given - Provider: Katelyn Nagel, [place] - Reason: Transfer to a procedural area) senna-docusate (SENOKOT-S/PERICOLACE) 8.6-50 MG per tablet 2 tablet(Linked Group 1) 2 tablet, Oral, 2 TIMES DAILY, First dose on Sat10/14/23 at 2000, Hold for loose stools. 1954 (See Alternative - Provider: Lauryn Sanchez RN) 0740 (See Alternative - Provider: Heather Parada RN)1936 (See Alternative - Provider: Lauryn Sanchez RN) 0847 (See Alternative - Provider: Katelyn Nagel RN) sodium chloride (PF) 0.9% PF flush 3 mL 3 mL, Intracatheter, EVERY 8 HOURS, First dose on Sat10/14/23 at 1800, And Q1H PRN, to lock peripheral IV dormant line. 1917 ($Given - Provider: Heather Parada RN) 0122 (Not Given - Provider: Lauryn Sanchez RN - Reason: Patient sleeping)1116 ($Given - Provider: Heather Parada RN)1843 ($Given - Provider: Heather Parada, NOBLE) 0154 (Canceled Entry - Provider: Lauryn Sanchez RN)0916 (Positive - Provider: Katelyn Nagel RN)1800 (Canceled Entry - Provider: Orders Generic Provider - Comment: Automatically canceled at discontinue of medication order) sodium chloride (PF) 0.9% PF flush 3 mL (CANCELED) 3 mL, Intravenous, EVERY 8 HOURS, First dose on Sat10/16/23 at 0730, And Q1H PRN, to lock peripheral IV dormant line., Cardiac Pre-procedure 0719 (Positive - Provider: Katelyn Nagel, [place]) sodium chloride 0.9% BOLUS 1,000 mL (COMPLETED) Intravenous, 1,000 mL, ONCE, at 1,000 mL/hr, Administer over 1 Hours, On Sat10/14/23 at 1520, For 1 dose 1538 ($New Bag - Provider: Cyndee Miller RN)1643 (Stopped - Provider: Cyndee Miller RN) PRN Medication Order 10/14/2023 10/15/2023 10/16/2023 acetaminophen (TYLENOL) Suppository 650 mg(Linked Group 2) 650 mg, Rectal, EVERY 4 HOURS PRN, mild pain, other, and adjunct with moderate or severe pain or per patient request, Starting on Sat10/14/23 at 1736, Alternate with ibuprofen if ordered. Maximum acetaminophen dose from all sources = 75 mg/kg/day not to exceed 4 grams/day. 1816 (See Alternative - Provider: Heather Parada RN) 1935 (See Alternative - Provider: Lauryn Sanchez RN) acetaminophen (TYLENOL) tablet 650 mg(Linked Group 2) 650 mg, Oral, EVERY 4 HOURS PRN, mild pain, other, and adjunct with moderate or severe pain or per patient request, Starting on Sat10/14/23 at 1736, Alternate with ibuprofen if ordered. Maximum acetaminophen dose from all sources = 75 mg/kg/day not to exceed 4 grams/day. 1816 ($Given - Provider: Heather Parada RN) 1935 ($Given - Provider: Lauryn Sanchez RN) albuterol (PROVENTIL) neb solution 2.5 mg 2.5 mg (3 mL), Nebulization, EVERY 2 HOURS PRN, wheezing, shortness of breath, Starting on Sat10/14/23 at 1736 bisacodyl (DULCOLAX) suppository 10 mg 10 mg, Rectal, DAILY PRN, constipation, Starting on Sat10/14/23 at 1736, IF more than 1 constipation PRN medication is ordered, administer step-wong as indicated, moving to the next step ONLY if prior step ineffective. Step 1: senna-docusate (SENOKOT-S; PERICOLACE) OR bisacodyl (DULCOLAX) EC tablet Step 2: polyethylene glycol (MIRALAX/GLYCOLAX) Step 3: bisacodyl (DULCOLAX) suppository Step 4: enema Hold for loose stools. dextrose 50 % injection 25-50 mL(Linked Group 3) 25-50 mL, Intravenous, EVERY 15 MIN PRN, low blood sugar, Administer over 1-5 Minutes, Starting on Sat10/14/23 at 1736, Use if have IV access, BG less than 70 mg/dL and meet dose criteria below: Dose if conscious and alert (or disorientated) and NPO = 25 mL Dose if unconscious / not alert = 50 mL Give first dose for initial blood glucose less than 70 mg/dL. If blood glucose at 15 minute recheck is less than or equal to 80 mg/dL continue to administer carbohydrate treatment every 15 minutes, as needed, based on blood glucose and assessment parameters until blood glucose level is above 80 mg/dL x 2 consecutive 15 minute checks. Vesicant. flumazenil (ROMAZICON) injection 0.2 mg 0.2 mg, Intravenous, EVERY 1 MIN PRN, benzodiazepine reversal, over sedation, Administer over 1 Minutes, Starting on Sat10/16/23 at 1550, For 12 hours, Give over 15 seconds. If inadequate response after 45 seconds, may repeat up to a MAX total dose of 1 mg) Irritant. Use with caution in patients on benzodiazepine therapy. glucagon injection 1 mg(Linked Group 3) 1 mg, Subcutaneous, EVERY 15 MIN PRN, low blood sugar, May repeat x 1 only, Starting on Sat10/14/23 at 1736, May give SQ or IM. ONLY use glucagon IF patient has NO IV access AND is UNABLE to swallow AND blood glucose is LESS than or EQUAL to 50 mg/dL. glucose gel 15-30 g(Linked Group 3) 15-30 g, Oral, EVERY 15 MIN PRN, low blood sugar, Starting on Sat10/14/23 at 1736, Give first dose for initial blood glucose less than 70 mg/dL per the dosing instructions below. If blood glucose at 15 minute rechecks is still less than or equal to 80 mg/dL, continue to administer doses per blood glucose parameters every 15 minutes, as needed, until blood glucose level is at or above 80 mg/dL x 2 consecutive 15 minute checks. Dosing Instructions: ~If patient is conscious and able to swallow and NO enteral tube For initial BG 51-69mg/dL OR 15 minute recheck BG 51- 80 mg/dL - give 15 g For BG less than or equal to 50 mg/dL - give 30 g ~ If Enteral tube For initial BG 51-69mg/dL OR 15 minute recheck BG 51- 80 mg/dL - give apple juice 120 mL (4 oz or 15 g of CHO) via enteral tube For BG less than or equal to 50 mg/dL - Give apple juice 240 mL (8 oz or 30 g of CHO) via enteral tube ~Oral gel is preferable for conscious and able to swallow patient. ~IF gel unavailable or patient refuses may provide apple juice per Enteral tube dosing instructions. Document juice on I and O flowsheet. guaiFENesin (ROBITUSSIN) 20 mg/mL solution 200 mg 200 mg, Oral, EVERY 4 HOURS PRN, other, secretion expectorant, Starting on Sat10/14/23 at 1736 hydrALAZINE (APRESOLINE) injection 10 mg(Linked Group 4) 10 mg, Intravenous, EVERY 4 HOURS PRN, high blood pressure, for systolic BP greater than 180 mmHg, Administer over 1 Minutes, Starting on Sat10/14/23 at 1736 hydrALAZINE (APRESOLINE) tablet 10 mg(Linked Group 4) 10 mg, Oral, EVERY 4 HOURS PRN, high blood pressure, for systolic BP greater than 180 mmHg, Starting on Sat10/14/23 at 1736 HYDROmorphone (DILAUDID) injection 0.2 mg 0.2 mg, Intravenous, EVERY 2 HOURS PRN, moderate pain, IF patient cannot take oral opioid OR IF pain not managed with non-pharmacological, non-opioid, or oral opioid interventions if ordered, Starting on Sat10/14/23 at 1736, May use concomitant with non-opioid analgesics. lidocaine (LMX4) cream Topical, EVERY 1 HOUR PRN, pain, with VAD insertion or accessing implanted port., Starting on Sat10/14/23 at 1736, Do NOT give if patient has a history of allergy to any local anesthetic or any ada product. Apply at least 30 minutes prior to VAD insertion or port access. In divided doses as needed for size of site for VAD insertion with MAX Dose: 2.5 g (?? of 5 g tube). lidocaine 1 % 0.1-1 mL 0.1-1 mL, Other, EVERY 1 HOUR PRN, mild pain with VAD insertion., Starting on Sat10/14/23 at 1736, Do NOT give if patient has a history of allergy to any local anesthetic or any ada product. MAX dose 1 mL subcutaneous OR intradermal in divided doses as needed for VAD insertion. magnesium sulfate 2 g in 50 mL sterile water intermittent infusion (COMPLETED) 2 g, Intravenous, ONCE PRN, magnesium supplementation, Administer IF magnesium level is less than 2 mg/dL, Starting on Sat10/16/23 at 0500, For 1 dose, Infuse over 60 minutes., Cardiac Pre-procedure 0803 ($New Bag - Provider: Katelyn Nagel RN) melatonin tablet 5 mg 5 mg, Oral, AT BEDTIME PRN, sleep, Starting on Sat10/15/23 at 1859 metoprolol (LOPRESSOR) injection 2.5 mg 2.5 mg, Intravenous, EVERY 5 MIN PRN, other, HR > 120, hold for SBP < 90, Starting on Sat10/14/23 at 1736, For 3 doses naloxone (NARCAN) injection 0.2 mg(Linked Group 5) 0.2 mg, Intravenous, EVERY 2 MIN PRN, opioid reversal, Starting on Sat10/14/23 at 1748, Administer intravenous route when available and notify provider when administered. For unintended sedation or respiratory depression if all of the below criteria are met: ~ respiratory rate LESS than or EQUAL to 8. ~SaO2 less than 92% and or/end-tidal CO2 is greater than 50. ~ the patient is receiving an opioid, has unintended sedations assessed as RASS (-3), and is currently not on mechanical ventilation. RASS scale moderate (-3) is movement or eye opening to voice but no eye contact. Patient Monitoring Once the patient has demonstrated a response to the naloxone, continue to monitor respiratory rate, depth, oxygen saturation and end-tidal CO2 (if available) every 15 minutes x 2, then every 30 minutes x 2, then every 1 hour x 1 after each naloxone dose. Consider transfer to ICU if patient respiratory parameters have not improved after 4 naloxone doses. naloxone (NARCAN) injection 0.2 mg(Linked Group 5) 0.2 mg, Intramuscular, EVERY 2 MIN PRN, opioid reversal, Starting on Sat10/14/23 at 1748, Administer intramuscular if an intravenous route is not available and notify provider when administered. For unintended sedation or respiratory depression if all of the below criteria are met: ~ respiratory rate LESS than or EQUAL to 8. ~SaO2 less than 92% and or/end-tidal CO2 is greater than 50. ~ the patient is receiving an opioid, has unintended sedations assessed as RASS (-3), and is currently not on mechanical ventilation. RASS scale moderate (-3) is movement or eye opening to voice but no eye contact. Patient Monitoring Once the patient has demonstrated a response to the naloxone, continue to monitor respiratory rate, depth, oxygen saturation and end-tidal CO2 (if available) every 15 minutes x 2, then every 30 minutes x 2, then every 1 hour x 1 after each naloxone dose. Consider transfer to ICU if patient respiratory parameters have not improved after 4 naloxone doses. naloxone (NARCAN) injection 0.4 mg(Linked Group 5) 0.4 mg, Intravenous, EVERY 2 MIN PRN, opioid reversal, Starting on Sat10/14/23 at 1748, Administer intravenous route when available and notify provider when administered. For unintended sedation or respiratory depression if all of the below criteria are met: ~ respiratory rate LESS than or EQUAL to 8. ~ SaO2 less than 92% and or/end-tidal CO2 is greater than 50. ~ the patient is receiving an opioid, has unintended sedation assessed as RASS (-4) or (-5) and patient is currently not on mechanical ventilation. RASS scale (-4) is deep sedation with no response to voice but movement or eye opening to physical stimulation. RASS scale (-5) is unarousable. Patient Monitoring Once the patient has demonstrated a response to the naloxone, continue to monitor respiratory rate, depth, oxygen saturation and end-tidal CO2 (if available) every 15 minutes x 2, then every 30 minutes x 2, then every 1 hour x 1 after each naloxone dose. Consider transfer to ICU if patient respiratory parameters have not improved after 4 naloxone doses. naloxone (NARCAN) injection 0.4 mg(Linked Group 5) 0.4 mg, Intramuscular, EVERY 2 MIN PRN, opioid reversal, Starting on Sat10/14/23 at 1748, Administer intramuscular if an intravenous route is not available and notify provider when administered. For unintended sedation or respiratory depression if all of the below criteria are met: ~ respiratory rate LESS than or EQUAL to 8. ~ SaO2 less than 92% and or/end-tidal CO2 is greater than 50. ~ the patient is receiving an opioid, has unintended sedation assessed as RASS (-4) or (-5) and patient is currently not on mechanical ventilation. RASS scale (-4) is deep sedation with no response to voice but movement or eye opening to physical stimulation. RASS scale (-5) is unarousable. Patient Monitoring Once the patient has demonstrated a response to the naloxone, continue to monitor respiratory rate, depth, oxygen saturation and end-tidal CO2 (if available) every 15 minutes x 2, then every 30 minutes x 2, then every 1 hour x 1 after each naloxone dose. Consider transfer to ICU if patient respiratory parameters have not improved after 4 naloxone doses. nitroGLYcerin (NITROSTAT) sublingual tablet 0.4 mg 0.4 mg, Sublingual, EVERY 5 MIN PRN, chest pain, Starting on Sat10/14/23 at 1912 2353 ($Given - Provider: Lauryn Sanchez RN) ondansetron (ZOFRAN ODT) ODT tab 4 mg(Linked Group 6) 4 mg, Oral, EVERY 6 HOURS PRN, nausea, vomiting, Starting on Sat10/14/23 at 1736, This is Step 1 of nausea and vomiting management. If nausea not resolved in 15 minutes, go to Step 2 prochlorperazine (COMPAZINE). With dry hands, peel back foil backing and gently remove tablet. Do not push oral disintegrating tablet through foil backing. Administer immediately on tongue and oral disintegrating tablet dissolves in seconds, then swallow with saliva. Liquid not required. ondansetron (ZOFRAN) injection 4 mg(Linked Group 6) 4 mg, Intravenous, EVERY 6 HOURS PRN, nausea, vomiting, Administer over 2-5 Minutes, Starting on Sat10/14/23 at 1736, Give IF patient unable to tolerate oral medication. This is Step 1 of nausea and vomiting management. If nausea not resolved in 15 minutes, go to Step 2 prochlorperazine (COMPAZINE). Irritant. oxyCODONE (ROXICODONE) tablet 5 mg 5 mg, Oral, EVERY 4 HOURS PRN, severe pain, IF pain not managed with non-pharmacological and non-opioid interventions, Starting on Sat10/14/23 at 1736, May use concomitant with non-opioid analgesics. oxyCODONE IR (ROXICODONE) half-tab 2.5 mg 2.5 mg, Oral, EVERY 4 HOURS PRN, moderate pain, IF pain not managed with non-pharmacological and non-opioid interventions, Starting on Sat10/14/23 at 1736, May use concomitant with non-opioid analgesics. polyethylene glycol (MIRALAX) Packet 17 g 17 g, Oral, 2 TIMES DAILY PRN, constipation, Starting on Sat10/14/23 at 1736, IF more than 1 constipation PRN medication is ordered, administer step-wong as indicated, moving to the next step ONLY if prior step ineffective. Step 1: senna-docusate (SENOKOT-S; PERICOLACE) OR bisacodyl (DULCOLAX) EC tablet Step 2: polyethylene glycol (MIRALAX/GLYCOLAX) Step 3: bisacodyl (DULCOLAX) suppository Step 4: enema 1 Packet = 17 grams. Mix each gram with at least 1/2 ounce (15 mL) of water - 8 ounces for 17 g dose, 4 ounces for 8.5 g dose, 2 ounces for 4 g dose. Follow with the same volume of water. Hold for loose stools unless being administered as part of a bowel prep regimen or bowel clean out. potassium chloride ER (KLOR-CON M) CR tablet 20 mEq (COMPLETED) 20 mEq, Oral, ONCE PRN, potassium supplementation, Administer IF K+ level is 3.5 to 4.0 mmol/L with sip of water., Starting on Sat10/16/23 at 0500, For 1 dose, DO NOT CRUSH, Cardiac Pre-procedure 0700 ($Given - Provider: Lauryn Sanchez RN) prochlorperazine (COMPAZINE) injection 5 mg(Linked Group 7) 5 mg, Intravenous, EVERY 6 HOURS PRN, nausea, vomiting, Administer over 1-2 Minutes, Starting on Sat10/14/23 at 1736, Give IF patient unable to tolerate oral medication. This is Step 2 of nausea and vomiting management. Give if nausea not resolved 15 minutes after giving ondansetron (ZOFRAN). If nausea not resolved in 15-30 minutes, Notify provider. prochlorperazine (COMPAZINE) suppository 12.5 mg(Linked Group 7) 12.5 mg, Rectal, EVERY 12 HOURS PRN, nausea, vomiting, Starting on Sat10/14/23 at 1736, This is Step 2 of nausea and vomiting management. Give if nausea not resolved 15 minutes after giving ondansetron (ZOFRAN). If nausea not resolved in 15-30 minutes, Notify provider. prochlorperazine (COMPAZINE) tablet 5 mg(Linked Group 7) 5 mg, Oral, EVERY 6 HOURS PRN, vomiting, Starting on Sat10/14/23 at 1736, This is Step 2 of nausea and vomiting management. Give if nausea not resolved 15 minutes after giving ondansetron (ZOFRAN). If nausea not resolved in 15-30 minutes, Notify provider. senna-docusate (SENOKOT-S/PERICOLACE) 8.6-50 MG per tablet 1 tablet(Linked Group 8) 1 tablet, Oral, 2 TIMES DAILY PRN, constipation, Starting on Sat10/14/23 at 1736, If no bowel movement in 24 hours, increase to 2 tablets by mouth. IF more than 1 constipation PRN medication is ordered, administer step-wong as indicated, moving to the next step ONLY if prior step ineffective. Step 1: senna-docusate (SENOKOT-S; PERICOLACE) OR bisacodyl (DULCOLAX) EC tablet Step 2: polyethylene glycol (MIRALAX/GLYCOLAX) Step 3: bisacodyl (DULCOLAX) suppository Step 4: enema Hold for loose stools. senna-docusate (SENOKOT-S/PERICOLACE) 8.6-50 MG per tablet 2 tablet(Linked Group 8) 2 tablet, Oral, 2 TIMES DAILY PRN, constipation, Starting on Sat10/14/23 at 1736, IF more than 1 constipation PRN medication is ordered, administer step-wong as indicated, moving to the next step ONLY if prior step ineffective. Step 1: senna-docusate (SENOKOT-S; PERICOLACE) OR bisacodyl (DULCOLAX) EC tablet Step 2: polyethylene glycol (MIRALAX/GLYCOLAX) Step 3: bisacodyl (DULCOLAX) suppository Step 4: enema Hold for loose stools. sodium chloride (PF) 0.9% PF flush 3 mL 3 mL, Intracatheter, EVERY 1 MIN PRN, line flush, Starting on Sat10/14/23 at 1736, for peripheral IV flush post IV meds Linked Groups Order Group 1: senna-docusate (SENOKOT-S/PERICOLACE) 8.6-50 MG per tablet 1 tabletJump to med 1 tablet, Oral, 2 TIMES DAILY, First dose on Sat10/14/23 at 2000, If no bowel movement in 24 hours, increase to 2 tablets by mouth. Hold for loose stools. Or senna-docusate (SENOKOT-S/PERICOLACE) 8.6-50 MG per tablet 2 tabletJump to med 2 tablet, Oral, 2 TIMES DAILY, First dose on Sat10/14/23 at 2000, Hold for loose stools. Group 2: acetaminophen (TYLENOL) tablet 650 mgJump to med 650 mg, Oral, EVERY 4 HOURS PRN, mild pain, other, and adjunct with moderate or severe pain or per patient request, Starting on Sat10/14/23 at 1736, Alternate with ibuprofen if ordered. Maximum acetaminophen dose from all sources = 75 mg/kg/day not to exceed 4 grams/day. Or acetaminophen (TYLENOL) Suppository 650 mgJump to med 650 mg, Rectal, EVERY 4 HOURS PRN, mild pain, other, and adjunct with moderate or severe pain or per patient request, Starting on Sat10/14/23 at 1736, Alternate with ibuprofen if ordered. Maximum acetaminophen dose from all sources = 75 mg/kg/day not to exceed 4 grams/day. Group 3: glucose gel 15-30 gJump to med 15-30 g, Oral, EVERY 15 MIN PRN, low blood sugar, Starting on Sat10/14/23 at 1736, Give first dose for initial blood glucose less than 70 mg/dL per the dosing instructions below. If blood glucose at 15 minute rechecks is still less than or equal to 80 mg/dL, continue to administer doses per blood glucose parameters every 15 minutes, as needed, until blood glucose level is at or above 80 mg/dL x 2 consecutive 15 minute checks. Dosing Instructions: ~If patient is conscious and able to swallow and NO enteral tube For initial BG 51-69mg/dL OR 15 minute recheck BG 51- 80 mg/dL - give 15 g For BG less than or equal to 50 mg/dL - give 30 g ~ If Enteral tube For initial BG 51-69mg/dL OR 15 minute recheck BG 51- 80 mg/dL - give apple juice 120 mL (4 oz or 15 g of CHO) via enteral tube For BG less than or equal to 50 mg/dL - Give apple juice 240 mL (8 oz or 30 g of CHO) via enteral tube ~Oral gel is preferable for conscious and able to swallow patient. ~IF gel unavailable or patient refuses may provide apple juice per Enteral tube dosing instructions. Document juice on I and O flowsheet. Or dextrose 50 % injection 25-50 mLJump to med 25-50 mL, Intravenous, EVERY 15 MIN PRN, low blood sugar, Administer over 1-5 Minutes, Starting on Sat10/14/23 at 1736, Use if have IV access, BG less than 70 mg/dL and meet dose criteria below: Dose if conscious and alert (or disorientated) and NPO = 25 mL Dose if unconscious / not alert = 50 mL Give first dose for initial blood glucose less than 70 mg/dL. If blood glucose at 15 minute recheck is less than or equal to 80 mg/dL continue to administer carbohydrate treatment every 15 minutes, as needed, based on blood glucose and assessment parameters until blood glucose level is above 80 mg/dL x 2 consecutive 15 minute checks. Vesicant. Or glucagon injection 1 mgJump to med 1 mg, Subcutaneous, EVERY 15 MIN PRN, low blood sugar, May repeat x 1 only, Starting on Sat10/14/23 at 1736, May give SQ or IM. ONLY use glucagon IF patient has NO IV access AND is UNABLE to swallow AND blood glucose is LESS than or EQUAL to 50 mg/dL. Group 4: hydrALAZINE (APRESOLINE) tablet 10 mgJump to med 10 mg, Oral, EVERY 4 HOURS PRN, high blood pressure, for systolic BP greater than 180 mmHg, Starting on Sat10/14/23 at 1736 Or hydrALAZINE (APRESOLINE) injection 10 mgJump to med 10 mg, Intravenous, EVERY 4 HOURS PRN, high blood pressure, for systolic BP greater than 180 mmHg, Administer over 1 Minutes, Starting on Sat10/14/23 at 1736 Group 5: naloxone (NARCAN) injection 0.2 mgJump to med 0.2 mg, Intravenous, EVERY 2 MIN PRN, opioid reversal, Starting on Sat10/14/23 at 1748, Administer intravenous route when available and notify provider when administered. For unintended sedation or respiratory depression if all of the below criteria are met: ~ respiratory rate LESS than or EQUAL to 8. ~SaO2 less than 92% and or/end-tidal CO2 is greater than 50. ~ the patient is receiving an opioid, has unintended sedations assessed as RASS (-3), and is currently not on mechanical ventilation. RASS scale moderate (-3) is movement or eye opening to voice but no eye contact. Patient Monitoring Once the patient has demonstrated a response to the naloxone, continue to monitor respiratory rate, depth, oxygen saturation and end-tidal CO2 (if available) every 15 minutes x 2, then every 30 minutes x 2, then every 1 hour x 1 after each naloxone dose. Consider transfer to ICU if patient respiratory parameters have not improved after 4 naloxone doses. Or naloxone (NARCAN) injection 0.4 mgJump to med 0.4 mg, Intravenous, EVERY 2 MIN PRN, opioid reversal, Starting on Sat10/14/23 at 1748, Administer intravenous route when available and notify provider when administered. For unintended sedation or respiratory depression if all of the below criteria are met: ~ respiratory rate LESS than or EQUAL to 8. ~ SaO2 less than 92% and or/end-tidal CO2 is greater than 50. ~ the patient is receiving an opioid, has unintended sedation assessed as RASS (-4) or (-5) and patient is currently not on mechanical ventilation. RASS scale (-4) is deep sedation with no response to voice but movement or eye opening to physical stimulation. RASS scale (-5) is unarousable. Patient Monitoring Once the patient has demonstrated a response to the naloxone, continue to monitor respiratory rate, depth, oxygen saturation and end-tidal CO2 (if available) every 15 minutes x 2, then every 30 minutes x 2, then every 1 hour x 1 after each naloxone dose. Consider transfer to ICU if patient respiratory parameters have not improved after 4 naloxone doses. Or naloxone (NARCAN) injection 0.2 mgJump to med 0.2 mg, Intramuscular, EVERY 2 MIN PRN, opioid reversal, Starting on Sat10/14/23 at 1748, Administer intramuscular if an intravenous route is not available and notify provider when administered. For unintended sedation or respiratory depression if all of the below criteria are met: ~ respiratory rate LESS than or EQUAL to 8. ~SaO2 less than 92% and or/end-tidal CO2 is greater than 50. ~ the patient is receiving an opioid, has unintended sedations assessed as RASS (-3), and is currently not on mechanical ventilation. RASS scale moderate (-3) is movement or eye opening to voice but no eye contact. Patient Monitoring Once the patient has demonstrated a response to the naloxone, continue to monitor respiratory rate, depth, oxygen saturation and end-tidal CO2 (if available) every 15 minutes x 2, then every 30 minutes x 2, then every 1 hour x 1 after each naloxone dose. Consider transfer to ICU if patient respiratory parameters have not improved after 4 naloxone doses. Or naloxone (NARCAN) injection 0.4 mgJump to med 0.4 mg, Intramuscular, EVERY 2 MIN PRN, opioid reversal, Starting on Sat10/14/23 at 1748, Administer intramuscular if an intravenous route is not available and notify provider when administered. For unintended sedation or respiratory depression if all of the below criteria are met: ~ respiratory rate LESS than or EQUAL to 8. ~ SaO2 less than 92% and or/end-tidal CO2 is greater than 50. ~ the patient is receiving an opioid, has unintended sedation assessed as RASS (-4) or (-5) and patient is currently not on mechanical ventilation. RASS scale (-4) is deep sedation with no response to voice but movement or eye opening to physical stimulation. RASS scale (-5) is unarousable. Patient Monitoring Once the patient has demonstrated a response to the naloxone, continue to monitor respiratory rate, depth, oxygen saturation and end-tidal CO2 (if available) every 15 minutes x 2, then every 30 minutes x 2, then every 1 hour x 1 after each naloxone dose. Consider transfer to ICU if patient respiratory parameters have not improved after 4 naloxone doses. Group 6: ondansetron (ZOFRAN ODT) ODT tab 4 mgJump to med 4 mg, Oral, EVERY 6 HOURS PRN, nausea, vomiting, Starting on Sat10/14/23 at 1736, This is Step 1 of nausea and vomiting management. If nausea not resolved in 15 minutes, go to Step 2 prochlorperazine (COMPAZINE). With dry hands, peel back foil backing and gently remove tablet. Do not push oral disintegrating tablet through foil backing. Administer immediately on tongue and oral disintegrating tablet dissolves in seconds, then swallow with saliva. Liquid not required. Or ondansetron (ZOFRAN) injection 4 mgJump to med 4 mg, Intravenous, EVERY 6 HOURS PRN, nausea, vomiting, Administer over 2-5 Minutes, Starting on Sat10/14/23 at 1736, Give IF patient unable to tolerate oral medication. This is Step 1 of nausea and vomiting management. If nausea not resolved in 15 minutes, go to Step 2 prochlorperazine (COMPAZINE). Irritant. Group 7: prochlorperazine (COMPAZINE) injection 5 mgJump to med 5 mg, Intravenous, EVERY 6 HOURS PRN, nausea, vomiting, Administer over 1-2 Minutes, Starting on Sat10/14/23 at 1736, Give IF patient unable to tolerate oral medication. This is Step 2 of nausea and vomiting management. Give if nausea not resolved 15 minutes after giving ondansetron (ZOFRAN). If nausea not resolved in 15-30 minutes, Notify provider. Or prochlorperazine (COMPAZINE) tablet 5 mgJump to med 5 mg, Oral, EVERY 6 HOURS PRN, vomiting, Starting on Sat10/14/23 at 1736, This is Step 2 of nausea and vomiting management. Give if nausea not resolved 15 minutes after giving ondansetron (ZOFRAN). If nausea not resolved in 15-30 minutes, Notify provider. Or prochlorperazine (COMPAZINE) suppository 12.5 mgJump to med 12.5 mg, Rectal, EVERY 12 HOURS PRN, nausea, vomiting, Starting on Sat10/14/23 at 1736, This is Step 2 of nausea and vomiting management. Give if nausea not resolved 15 minutes after giving ondansetron (ZOFRAN). If nausea not resolved in 15-30 minutes, Notify provider. Group 8: senna-docusate (SENOKOT-S/PERICOLACE) 8.6-50 MG per tablet 1 tabletJump to med 1 tablet, Oral, 2 TIMES DAILY PRN, constipation, Starting on Sat10/14/23 at 1736, If no bowel movement in 24 hours, increase to 2 tablets by mouth. IF more than 1 constipation PRN medication is ordered, administer step-wong as indicated, moving to the next step ONLY if prior step ineffective. Step 1: senna-docusate (SENOKOT-S; PERICOLACE) OR bisacodyl (DULCOLAX) EC tablet Step 2: polyethylene glycol (MIRALAX/GLYCOLAX) Step 3: bisacodyl (DULCOLAX) suppository Step 4: enema Hold for loose stools. Or senna-docusate (SENOKOT-S/PERICOLACE) 8.6-50 MG per tablet 2 tabletJump to med 2 tablet, Oral, 2 TIMES DAILY PRN, constipation, Starting on 10/14/23 at 1736, IF more than 1 constipation PRN medication is ordered, administer step-wong as indicated, moving to the next step ONLY if prior step ineffective. Step 1: senna-docusate (SENOKOT-S; PERICOLACE) OR bisacodyl (DULCOLAX) EC tablet Step 2: polyethylene glycol (MIRALAX/GLYCOLAX) Step 3: bisacodyl (DULCOLAX) suppository Step 4: enema Hold for loose stools. documented in this encounter Care Teams Vision Mixer Relationship Specialty Start Date End Date Merrill Mejia MD [facility] [address] [place] [id number] PCP - General Family Medicine 10/10/23 10/24/23 Nicanor Patel MD [address] [place] [id number] Cardiovascular Disease 09/16/23 Nicanor Patel MD [address] [place] [id number] Cardiovascular Disease 09/16/23 Nicanor Patel MD [address] [place] [id number] Assigned Heart and Vascular Provider 09/26/23 documented as of this encounter
--- OUTSIDE RECORDS SUMMARY | 2024-01-08 07:16 | XMS_ITS | Encounter Summary ---
Author Name Unknown Organization [place] Address [facility]0 [facility] [place] [address] Care Team Providers Care Boat Mechanic Name Role Phone Nicanor Klein MD Unavailable Nicanor Klein MD Unavailable Nicanor Klein MD Unavailable Merrill Mejia MD Primary Care Provider Encounter Details Date Type Department Care Team (Late st Contact Info) Description 10/14/2023 Telephone [facility] Heart [place] [id number] [facility] [address] [place] [address] Nicanor Klein MD [address] [facility] [address] [place], [place] [address] Social History Tobacco Use Types Packs/Day Years Used Date Smoking Tobacco: Never Alcohol Use Standard Drinks/Week Comments Yes 0 (1 standard drink = 0.6 oz pur e alcohol) Adolescent Education Answer Date Record ed Getting School Help Needed Not on file 06/09 Sex and Gender Information Value Date Recorded Sex Assigned at Male 09/28/2023 2:19 PM LONG LINES OPERATOR Gender Identity Male 09/28/2023 2:19 PM LONG LINES OPERATOR Sexual Orientation Straight 09/28/2023 2: 19 PM LONG LINES OPERATOR documented as of this encounter Miscellaneous Notes * Telephone Encounter - Lashell Osborn RN - 10/14/2023 11:42 AM CST Messages left for regarding Patient and concerns that he needs to go into ED. If unable to bring Patient to please call 911. Which would be safer. Unable to assist in admission, ED would need to assess and evaluate. LINES OPERATOR * Telephone Encounter - Porfirio Zavaleta - 10/14/2023 11:18 AM CST [facility] Call Center Phone Message May a detailed message be left on voicemail: yes Reason for Call: Other: Patients spouse is calling as he has an OV with yonny yovani today but she is thinking that she will have to bring the patient in to the hospital and wanted the team to prepare for his arrival, patients spouse would like a call from the care team, please advise,thank you. Action Taken: Other: cardiology Travel Screening: Not Applicable Thank you! [facility] LINES OPERATOR documented in this encounter Plan of Treatment Upcoming Encounters Date Type Department Care Team (Late st Contact Info) Description 05/14/2024 12:30 PM CDT Office Visit [facility] [address] [facility] [address] [place] [phone] Gail Post MD [address] [place] [address] Anushka Carrasquillo MD [address] [place] [address] documented as of this encounter Visit Diagnoses Not on filedocumented in this encounter Care Teams Boat Mechanic Relationship Specialty Start Date End Date Merrill Mejia MD [facility] [address], [place] [address] PCP - General Family Medicine 10/10/23 10/24/23 Nicanor Klein MD [address] [place] [address] Cardiovascular Disease 09/16/23 Nicanor Klein MD [address] [place] [id number] Cardiovascular Disease 09/16/23 Nicanor Klein MD [address] [place] [id number] Assigned Heart and Vascular Provider 09/26/23 documented as of this encounter
--- OUTSIDE RECORDS SUMMARY | 2024-01-08 07:16 | XMS_ITS | Encounter Summary ---
Author Name Unknown Organization [place] Address [address] [place] [address] Care Team Providers Care Windsurfing Instructor Name Role Phone Edwige Negrete MD Primary Care Provider [phone] Nicanor Klein MD Unavailable Nicanor Klein MD Unavailable Nicanor Klein MD Unavailable Merrill Mejia MD Primary Care Provider [phone] Reason for Visit * Reason Onset Date Comments Previsit 10/09/2023 D[facility] 10/15/2023 Encounter Details Date Type Department Care Team (Late st Contact Info) Description 10/09/2023 Telephone [facility] Heart [address] [place] [address] Charo Brady, RN Previsit (D[facility] 10/15/2023) Social History Tobacco Use Types Packs/Day Years Used Date Smoking Tobacco: Never Alcohol Use Standard Drinks/Week Comments Yes 0 (1 standard drink = 0.6 oz pur e alcohol) Adolescent Education Answer Date Record ed Getting School Help Needed Not on file 06/09 Sex and Gender Information Value Date Recorded Sex Assigned at Male 09/28/2023 2:19 PM PLUMBING MECHANIC Gender Identity Male 09/28/2023 2:19 PM PLUMBING MECHANIC Sexual Orientation Straight 09/28/2023 2: 19 PM PLUMBING MECHANIC documented as of this encounter Miscellaneous Notes * Telephone Encounter - Charo Brady RN - 10/09/2023 2:46 PM PLUMBING MECHANIC Attempted to contact patient to review prep for DCCV on 10/15/2023. Left message for patient to callback to Team 2 R.N.s @ [phone] DCCV/CAIN prep instructions Patient is scheduled for a CANI at [facility] - [address] [place] [address] - Main Entrance of the Hospital, on 10/15/2023. Check in time is at 0830 and procedure to follow. Patient instructed to remain NPO for solid foods 8 hours prior to arrival and may have clear liquids up to 2 hours prior to arrival. Patient is taking Pradaxa/Xarelto/Eliquis and has been taking daily uninterrupted for at least 21days. Patient is on insulin and has been instructed to reach out to primary care provider for recommendations. Patient is not taking Digoxin. Patient is taking not on diuretics. and has been advised to hold this the morning of the procedure.He will take his tenoretic after the procedure Pt is not on a SGLT2 inhibitor. Pt is not on a GLP-1 Agonist Patient advised to take their other daily medications the morning of the procedure with small sips of water. Verified patient has someone available to drive them home from the hospital and can stay with them for 24 hours after the procedure. Patient advised to notify care team with any new COVID like symptoms prior to procedure. Patient will check their temperature the morning of procedure and call [facility] at [phone] iftemp is >100.0. Patient is aware of visitor policy. Patient expresses understanding of above instructions and denies further questions at this time. BING MECHANIC documented in this encounter Plan of Treatment Upcoming Encounters Date Type Department Care Team (Late st Contact Info) Description 05/14/2024 12:30 PM CDT Office Visit [facility] [address] [place] [phone] Gail Post MD [address] [place] [address] Anushka Carrasquillo MD [address] [place] [address] documented as of this encounter Visit Diagnoses Not on filedocumented in this encounter Care Teams Windsurfing Instructor Relationship Specialty [place] [address] [place] [address] PCP - General Family Practice 07/21/19 10/09/23 Merrill Mejia MD [facility] [address] [address] PCP - General Family Medicine 10/10/23 10/24/23 Nicanor Klein MD [address] [facility] [place] [id number] Cardiovascular Disease 09/16/23 Nicanor Klein MD [address] [facility] [place] [address] Cardiovascular Disease 09/16/23 Nicanor Klein MD [address] [facility] [place] [address] Assigned Heart and Vascular Provider 09/26/23 documented as of this encounter
--- OUTSIDE RECORDS SUMMARY | 2024-01-08 07:16 | XMS_ITS | Encounter Summary ---
Author Name Unknown Organization [place] Address [address] [place] [address]. [place] [address] Care Team Providers Care Elephant Keeper Name Role Phone Nicanor Klein MD Unavailable Nicanor Klein MD Unavailable Nicanor Klein MD Unavailable Merrill Mejia MD Primary Care Provider [phone] Encounter Details Date Type Department Care Team (Late st Contact Info) Description 10/14/2023 Telephone [facility] Heart [address] [place] [address] Lashell Osborn RN Social History Tobacco Use Types Packs/Day Years Used Date Smoking Tobacco: Never Alcohol Use Standard Drinks/Week Comments Yes 0 (1 standard drink = 0.6 oz pur e alcohol) Adolescent Education Answer Date Record ed Getting School Help Needed Not on file 06/09 Sex and Gender Information Value Date Recorded Sex Assigned at Male 09/28/2023 2:19 PM VOLUNTEER SERVICES ASSISTANT Gender Identity Male 09/28/2023 2:19 PM VOLUNTEER SERVICES ASSISTANT Sexual Orientation Straight 09/28/2023 2: 19 PM VOLUNTEER SERVICES ASSISTANT documented as of this encounter Miscellaneous Notes * Telephone Encounter - Lashell Osborn RN - 10/14/2023 11:01 AM CST Message left for regarding RIANNA OV today at 3 PM. will be coming to appointment today as she is concerned about her . NTEER SERVICES ASSISTANT documented in this encounter Plan of Treatment Upcoming Encounters Date Type Department Care Team (Late st Contact Info) Description 05/14/2024 12:30 PM CDT Office Visit [facility] [address] [facility] [address] [place] [phone] Gail Post MD [address] [place] [address] Anushka Carrasquillo MD [address] [place] [address] documented as of this encounter Visit Diagnoses Not on filedocumented in this encounter Care Teams Elephant Keeper Relationship Specialty Start Date End Date Merrill Mejia MD [facility] [address] [address] PCP - General Family Medicine 10/10/23 10/24/23 Nicanor Klein MD [address] [facility] [address] [place] [address] Cardiovascular Disease 09/16/23 Nicanor Klein MD [address] [place] [address] Cardiovascular Disease 09/16/23 Nicanor Klein MD [address] [place] [address] Assigned Heart and Vascular Provider 09/26/23 documented as of this encounter
--- OUTSIDE RECORDS SUMMARY | 2024-01-08 07:16 | XMS_ITS | Encounter Summary ---
Author Name Unknown Organization [place] Address [address] [facility] [place] [address] Care Team Providers Care Galley Cook Name Role Phone Nicanor Klein MD Unavailable Nicanor Klein MD Unavailable Nicanor Klein MD Unavailable Merrill Mejia MD Primary Care Provider [phone] Encounter Details Date Type Department Care Team (Latest Contact Info) Description 10/12/2023 Medical Correspondence [facility] [address] [place] [address] Scan, Non-Provider [facility] Social History Tobacco Use Types Packs/Day Years Used Date Smoking Tobacco: Never Alcohol Use Standard Drinks/Week Comments Yes 0 (1 standard drink = 0.6 oz pur e alcohol) Adolescent Education Answer Date Record ed Getting School Help Needed Not on file 06/09 Sex and Gender Information Value Date Recorded Sex Assigned at Male 09/28/2023 2:19 PM CLUB LOUNGE ATTENDANT Gender Identity Male 09/28/2023 2:19 PM CLUB LOUNGE ATTENDANT Sexual Orientation Straight 09/28/2023 2: 19 PM CLUB LOUNGE ATTENDANT documented as of this encounter Plan of Treatment Upcoming Encounters Date Type Department Care Team (Late st Contact Info) Description 05/14/2024 12:30 PM CDT Office Visit [place] [address] [place] [phone] Gail Post MD [address] [address] Anushka Carrasquillo MD [address] [place] [address] documented as of this encounter Visit Diagnoses Not on filedocumented in this encounter Care Teams Galley Cook Relationship Specialty Start Date End Date Merrill Mejia MD [facility] [address] [place] [address] PCP - General Family Medicine 10/10/23 10/24/23 Nicanor Klein MD [address] [facility] [address] [place] [address] Cardiovascular Disease 09/16/23 Nicanor Klein MD [address] [facility] [address] [place] [address] Cardiovascular Disease 09/16/23 Nicanor Klein MD [address] [facility] [address] [place] [address] Assigned Heart and Vascular Provider 09/26/23 documented as of this encounter
--- OUTSIDE RECORDS SUMMARY | 2024-01-08 07:16 | XMS_ITS | Encounter Summary ---
Author Name Unknown Organization [place] Address [facility] [place] [address] Care Team Providers Care Planer Hand Name Role Phone Nicanor Patel MD Unavailable Nicanor Patel MD Unavailable Nicanor Patel MD Unavailable Merrill Mejia MD Primary Care Provider [phone] Reason for Referral * Home Health Therapies & Aides (Routine: Next available opening) - Pending Review Specialty Diagnoses / Procedures Referred By Contalex t Referred To Contact Diagnoses Community acquired pneumonia, unspecified laterality Episode of confusion Gail Post MD [address] [place] [address] Referral ID Status Reason Start Date Expiration Date V isits Requested Visits Authorized [id number] Pending Review 10/16/2023 10/15/2024 1 1 Question Answer Reason for Referral: Residential, Physical Therapy Physical Therapy Eval and Treat for: Home Safety Assessment Residential Eval and Treat for: Disease management Additional Services Needed: Occupational Therapy Occupational Therapy Eval and Treat for: ADLs Is the patient homebound? Yes Homebound Status (describe the functional limitations that support this patient is confined to his/her home. Medicaid recipients are not required to be homebound.): Dyspnea on exertion that makes it unsafe to leave home without clinical deterioration I attest that I saw or will see the patient on this date: 10/16/2023 Provider to follow patient MERRILL MEJIA [[id number]] Comments Your provider has ordered home health services. If you have not been contacted within 2 days of your discharge please call the selected Home Care agency listed on your Discharge document. If a Home Care agency is NOT listed, please call [phone]. TEACHER * Consultation (Routine: Next available opening) - Pending Review Specialty Diagnoses / Procedures Referred By Noah ng Referred To Contact Endocrinology, Diabetes, and Metabolism Diagnoses Type 2 diabetes mellitus with stage 3b chronic kidney disease, with long-term current use of insulin (H) Gail Post MD [address] [place] [address] Referral ID Status Reason Start Date Expiration Date V isits Requested Visits Authorized [id number] Pending Review 10/16/2023 10/15/2024 1 1 Question Answer Reason for Referral: Diabetes Diabetes State: Type 2 Scheduling Instructions: TheravascealAgileMD will call you to coordinate your care as prescribed by the provider. If you don? t hear from a call center support representative within 2 business days, please call [phone]. Comments Please be aware that coverage of these services is subject to the terms and limitations of your health insurance plan. Call member services at your health plan with any benefit or coverage questions. [facility]ascealAgileMD will call you to coordinate your care as prescribed by the provider. If you don? t hear from a call center support representative within 2 business days, please call [phone]. TEACHER Reason for Visit * Reason Comments Irregular Heart Beat Chest Pain * Auth/Cert (Routine) Specialty Diagnoses / Procedures Referred By Noah ng Referred To Contact Med Surg Diagnoses Weakness Hypoglycemia History of atrial fibrillation Episode of confusion Chest pain, unspecified type Community acquired pneumonia, unspecified laterality Chest pain, unspecified type Weakness History of atrial fibrillation Hypoglycemia Community acquired pneumonia, unspecified laterality Episode of confusion Short Stay [address] [id number] Referral ID Status Reason Start Date Expiration Date Visits Re quested Visits Authorized [id number] 1 1 Encounter Details Date Type Department Care Team (Late st Contact Info) Description 10/14/2023 12:37 PM TAFE TEACHER - 10/16/2023 4:33 PM TAFE TEACHER Hospital Encounter [facility] Extended Recovery and Short Stay [address] [place] [id number] Ilan Alves MD [facility] [address] [place] [id number] Michelle Eckert MD [address] [place] [address] Type 2 diabetes mellitus with stage 3b chronic kidney disease, with long-term current use of insulin (H) (Primary Dx); Hypoglycemia; Community acquired pneumonia, unspecified laterality; Episode of confusion; Chest pain, unspecified type; Weakness; History of atrial fibrillation; Calcification of coronary artery Discharge Disposition: Home-Health Care Svc Social History Tobacco Use Types Packs/Day Years Used Date Smoking Tobacco: Never Alcohol Use Standard Drinks/Week Comments Yes 0 (1 standard drink = 0.6 oz pur e alcohol) Adolescent Education Answer Date Record ed Getting School Help Needed Not on file 06/09 Sex and Gender Information Value Date Recorded Sex Assigned at Male 09/28/2023 2:19 PM TAFE TEACHER Gender Identity Male 09/28/2023 2:19 PM TAFE TEACHER Sexual Orientation Straight 09/28/2023 2: 19 PM TAFE TEACHER documented as of this encounter Last Filed Vital Signs Vital Sign Reading Time Taken Comments Blood Pressure 118/73 10/16/2023 10:04 AM TAFE TEACHER Pulse 87 10/16/2023 10:04 AM TAFE TEACHER Temperature 36.3 ??C (97.4 ??F) 10/16/2023 1 0:04 AM TAFE TEACHER Respiratory Rate 18 10/16/2023 10:0 4 AM TAFE TEACHER Oxygen Saturation 98% 10/16/2023 10: 04 AM TAFE TEACHER Inhaled Oxygen Concentration - - Weight 95.7 kg (210 lb 14.4 oz) 10/16/2023 3:58 AM TAFE TEACHER Height 185.4 cm (6' 1) 10/14/2023 5:59 PM TAFE TEACHER Body Mass Index 27.82 10/14/2023 5:59 PM TAFE TEACHER documented in this encounter Discharge Summaries * Gail Post MD - 10/16/2023 1:05 PM CST Images from the original note were not included. [facility] Discharge Summary Hospitalist Date of Admission: [...] consulted here, he underwent cardioversion on 10/16, plan is to continue metoprolol and Xarelto upon [...] below, scheduled for outpatient cardioversion 10/15. Continue BUILDER OPERATOR medications which include Xarelto, losartan and metoprolol. [...] manage insulin with frequent episodes of hypoglycemia. *BUILDER OPERATOR Regimen: Takes insulin Glargine 80-90 units at bed time, despite PCP recommendation that he takes 50 units. Last HbA1c 8.7% patient was on hypoglycemia protocol, was continued insulin here, metformin is on hold, continued on CHO diet there is concern whether he can manage his insulin, will arrange outpatient endocrine follow-up. Coronary artery disease Benign essential hypertension BUILDER OPERATOR Regimen: Atenolol, losartan, xarelto and rosuvastatin EKG: Atrial fibrillation with rapid ventricular response with left axis deviation Possible Anterior infarct , age undetermined. Last ECHO: 10/01/23 EF 60-65%. Last stress test: 08/21/23 Negative for inducible myocardial ischemia or infarction. Follows with cardiology at [facility] Dr. Patel. Continue BUILDER OPERATOR losartan, atenolol stopped. His BUILDER OPERATOR statin is on hold, continue holding that [...] triglycerides 65, LDL 27, HDL 26. - BUILDER OPERATOR rosuvastatin on hold, consider restarting at a lower dose at the time of discharge. Chronic kidney disease, stage 3a Baseline creatinine 1.20-1.46. On admission, creatinine 1.49. Then remained stable on discharge, 1.38. Gail Post MD Significant Results and Procedures Pending Results These results will be followed up by Nick Dinh Unresulted Labs Ordered in the Past 30 [...] IP CONSULT Time Spent on this Encounter I, Gail Post MD, personally saw the patient today and [...] appears clear. ELO DIETRICH MD SYSTEM ID: [id number] XR Chest 2 Views Narrative CHEST TWO [...] Narrative Carter Ellis MD 10/16/2023 9:05 AM [facility] Procedure: EP Cardioversion External Date/Time: 10/16/2023 [...] the procedure a time out was called [place] Protocol: the Joint Commission [place] Protocol was followed Preparation: Patient was prepped [...] without bradycardia or pauses. No apparent complications. TEACHER documented in this encounter Medications at Time [...] of this encounter Progress Notes * Katelyn Nagel, NOBLE - 10/16/2023 4:01 PM CST BP 118/73 [...] has all belongings. 48hr monitor in place. TEACHER * Sarah Sheth, PT - 10/16/2023 12:23 PM CST 10/16/23 [...] (include personal factors and/or [facility] that [facility] 83-year-old male, admitted on 10/14/2023, presented with [...] Commands (Cognition) WFL;delayed response/completion;increased processing time needed ([place]) Pain Assessment Patient Currently in Pain No [...] Evaluation Time PT Eval, Low Complexity Minutes (51400) 12 Physical Therapy Goals PT Frequency One time eval and treatment only PT Predicted Duration/Target Date for Goal Attainment 10/16/23 PT Goals Transfers;Gait;Stairs PT: Transfers Modified independent;Sit to/from stand PT: Gait Supervision/stand-by assist;150 feet PT: Stairs Supervision/stand-by assist;Greater than 10 stairs (Single rail) Interventions Interventions Quick Adds Therapeutic Activity;Gait Training Therapeutic Activity Therapeutic Activities: dynamic activities to improve functional performance Minutes (15515) 10 Symptoms Noted During/After Treatment Fatigue Treatment Detail/Skilled Intervention Patient greeted seated on EOB. present and attentive to patient's needs. Patient very [place] but following commands appropriately. Patient agreeable to [...] with RN. Gait Training Gait Training Minutes (73084) 24 Symptoms Noted During/After Treatment (Gait Training) [...] rest neededbefore ascending stairs. Patient alternates between [id number] and step-to pattern when ascending stairs, again [...] (sum of timed and untimed services) 46 TEACHER * Shashank Arellano RN - 10/16/2023 9:08 AM CST Care Suites Post Procedure Note Patient Information Name: Ilan Alaniz Age: [age] year old Post Procedure Bedside report taken by receiving RN TEACHER * Merlyn Lyon CNP - 10/16/2023 7:41 AM CST [facility] Cardiology Progress Note Date of Service: 10/16/2023 Primary Seafood Process Worker: Dr. Patel Staff Seafood Process Worker: Dr. Malik Assessment & Plan Ilan Alaniz [...] Rate control: Toprol XL 25 mg daily [BUILDER OPERATOR atenolol 50 mg daily] S/p successful DCCV [...] Continue Toprol XL 25 mg daily, stop BUILDER OPERATOR atenolol. Continue Xarelto 20 mg daily for stroke prophylaxis. Follow-up arranged with Rhonda Christian CNP, on 11/05/23. Okay to discharge from a cardiology standpoint. Merlyn Lyon CNP Pager: (7am - 5pm, M-F) Physical Exam [...] encounter: 95.7 kg (210 lb 14.4 oz). TEACHER Associated attestation - Tian Malik MD - 10/16/2023 2:41 PM TAFE TEACHER Physician Attestation I saw and evaluated Ilan Alaniz as part of a shared STYLIST ASSISTANT/PA visit. I personally reviewed the vital signs, [...] I saw the patient): 10/16/23 * Heather Parada RN - 10/15/2023 6:00 PM CST Top portion [...] date & active delays: 10/16- SUMMARY NOTE: (either paste note here OR [...] senna x1. Recommend senna 2 tab for dampener operator. Skin Concerns: Bruise R thigh Drains/Devices: PIV SL Patient Stated Goal for Today: prep for procedures TEACHER * Liss Pride RN - 10/15/2023 4:39 PM CST [facility] Home Health Patient is currently receiving services with [facility]. The patient is currently receiving RN services. Patient's case coordinator and home health team have been notified that patient is under inpatient status [facility] Liaison will continue to follow patient during stay. Please provide orders to resume home care at time of discharge if appropriate. TEACHER * Heather Parada RN - 10/15/2023 2:00 [...] met and patient is ready for discharge. TEACHER * Bacilio Steele MD - 10/15/2023 10:40 AM CST [facility] Medicine Progress Note - Hospitalist Service [...] then admitted to inpatient. - Telemetry. - BUILDER OPERATOR Atenolol switched to metoprolol per cardiology. - Continue BUILDER OPERATOR Xarelto. - PRN IV metoprolol for sustained [...] - Telemetry. - Xarelto, metoprolol, losartan. - BUILDER OPERATOR rosuvastatin on hold for now as noted [...] manage insulin with frequent episodes of hypoglycemia. *BUILDER OPERATOR Regimen: Takes insulin Glargine 80-90 units at bed time, despite PCP recommendation that he takes 50 units. Last HbA1c 8.7% - Hypoglycemia protocol. - Preprandial and HS fingerstick checks or Q 4 hours while NPO. - Hold BUILDER OPERATOR metformin. - Medium dose sliding scale insulin ordered. - BUILDER OPERATOR lantus decreased to 30 units at bedtime. [...] insulin. Coronary artery disease Benign essential hypertension BUILDER OPERATOR Regimen: Atenolol, losartan, xarelto and rosuvastatin EKG: Atrial fibrillation with rapid ventricular response with left axis deviation Possible Anterior infarct , age undetermined. Last ECHO: 10/01/23 EF 60-65%. Last stress test: 08/21/23 Negative for inducible myocardial ischemia or infarction. Follows with cardiology at [facility] Dr. Patel. - Telemetry. - Continue BUILDER OPERATOR Losartan and Atenolol with hold parameters. - HOLD BUILDER OPERATOR Crestor for now, consider restarting at a lower dose upon discharge. - Continue BUILDER OPERATOR nitroglycerin SL PRN 0.4 mg SL tablet [...] triglycerides 65, LDL 27, HDL 26. - BUILDER OPERATOR rosuvastatin on hold, consider restarting at a [...] following. Cardioversion. Bacilio Steele MD Hospitalist Service [facility] Securely message with NutshellMail (more info) Text page via [facility] Paging/Directory Interval History Ilan Alaniz was [...] No acute displaced fracture. PRECIOUS YOON MD TEACHER * Heather Parada RN - 10/15/2023 10:00 [...] met and patient is ready for discharge. TEACHER * Lauryn Sanchez RN - 10/15/2023 6:00 [...] met and patient is ready for discharge. TEACHER * Lauryn Sanchez RN - 10/15/2023 2:00 [...] met and patient is ready for discharge. TEACHER * Lauryn Sanchez RN - 10/14/2023 10:00 [...] met and patient is ready for discharge. TEACHER * Heather Parada RN - 10/14/2023 6:47 PM CST Observation [...] Patient Stated Goal for Today: pain management. TEACHER * Heather Parada RN - 10/14/2023 5:14 PM CST RECEIVING UNIT ED HANDOFF REVIEW ED Nurse Handoff Report was reviewed by: Heather Parada RN on October 14, 2023 at 5:14 PM TEACHER documented in this encounter H&P Notes * Dulce Fisher PA-C - 10/14/2023 1:42 PM CST [facility] History and Physical - Hospitalist Service [...] Nicanor Patel 09/23/23. - Telemetry - Continue BUILDER OPERATOR Atenolol - Continue BUILDER OPERATOR anticoagulation, with Xerelto - PRN IV metoprolol for sustained heart rate >120 - Monitor K+/Mg++, replace PRN - Cardiology consult with plan for cardioversion. - NPO at midnight until cardiology consult Insulin dependent type 2 diabetes Recurrent severe hypoglycemia *Persistent inability to manage insulin with frequent episodes of hypoglycemia *BUILDER OPERATOR Regimen: Takes insulin Glargine 80-90 units at bed time, despite PCP recommendation that he takes 50 units. Last HbA1c 8.7% - Hypoglycemia protocol - Preprandial and HS fingerstick checks or Q 4 hours while NPO - Hold BUILDER OPERATOR oral antiglycemics (Metformin) - Sliding scale insulin [...] 201* Coronary artery disease Benign essential hypertension BUILDER OPERATOR Regimen: Atenolol, losartan, xarelto and rosuvastatin EKG: Atrial fibrillation with rapid ventricular response with left axis deviation Possible Anterior infarct , age undetermined Last ECHO: 10/01/23 EF 60-65% Last stress test: 08/21/23 Negative for inducible myocardial ischemia or infarction. Follows with cardiology at [facility] Dr. Patel - Telemetry-Yes - Continue BUILDER OPERATOR Losartan, Atenolol with hold parameters - HOLD BUILDER OPERATOR Crestor - Continue BUILDER OPERATOR nitroglycerin SL PRN 0.4 mg SL tablet q5min times three doses for chest pain - Hold BUILDER OPERATOR losartan for SBP less than 110 and Atenolol for HR less than 60 - PRN IV hydralazine available for SBP >180 - Monitor BP trend and need for medication adjustments Cognitive Dysfunction, progressive *Inability to manage and administer medications in a safe manner -OT for formal cognitive evaluation Dyslipidemia Baseline lipid panel unavailable - Continue BUILDER OPERATOR Crestor Chronic kidney disease, stage 3A Baseline [...] Patient, and Patient's Family. Dominic Mukherjee APRN, SENIOR QA TESTER Dulce Fisher PA-C Hospitalist Service [facility] Securely message with NutshellMail (more info) Text page via [facility] Paging/Directory Chief Complaint Weakness and persistent [...] was also seen in the ED at [facility] on 10/01 with symptoms similar to that [...] History Past Surgical History: Procedure Laterality Date [facility] NONSPECIFIC PROCEDURE 2004 Cholecystectomy [facility] NONSPECIFIC PROCEDURE Appendectomy [facility] NONSPECIFIC PROCEDURE Lysis of adhesions for bowel [...] appears clear. ELO DIETRICH MD SYSTEM ID: [id number] TEACHER Associated attestation - Michelle Eckert MD - 10/15/2023 3:12 PM TAFE TEACHER Physician Attestation I have reviewed and discussed [...] 9:05 AM CSTAssociated Order(s): EP Cardioversion External [facility] Procedure: EP Cardioversion External Date/Time: 10/16/2023 8:35 AM Performed by: Carter Ellis MD Authorized by: Merlyn Lyon SENIOR QA TESTER [employer] Site Marked: Yes Prior Images Obtained and Reviewed: Yes Required items: Required blood products, implants, devices and special equipment available Patient identity confirmed: Verbally with patient Patient was reevaluated immediately before administering moderate or deep sedation or anesthesia Confirmation Checklist: Patient's identity using two indicators Time out: Immediately prior to the procedure a time out was called [place] Protocol: the Joint Commission [place] Protocol was followed Preparation: Patient was prepped [...] without bradycardia or pauses. No apparent complications. TEACHER documented in this encounter Consult Notes * Rachel Palomares RN - 10/16/2023 3:21 PM CST Care Management Discharge Note Discharge Date: 10/16/2023 Discharge Disposition: (to be determined pending therapy recommendations ;) Discharge Services: resumption of [facility] Homecare RN+PT Discharge DME: n/a Discharge Transportation: [...] comments) Handoff Referral Completed: Yes Additional Information: Ldr Nurse checked in with patient and spouse at the bedside. Patient is cleared for discharge to home with resumption of homecare RN and PT should be added on. Spouse noted that [facility] has the patient scheduled for this Thursday 10/19. Ldr Nurse to send a message to the homecare Liaison regarding PT being added. No further needs identified. Rachel Palomares RN, BSN, ACM Care Transitions Specialist [facility] Care Transitions Specialist [phone] [place] [phone] [email or web address] Office: [phone] [place] [facility] TEACHER * Jane Norton PA-C - 10/16/2023 11:02 AM CSTAssociated Order(s): GASTROENTEROLOGY IP CONSULT [facility] Gastroenterology Consultation Ilan Alaniz [address] [place] [address] 83 year old male Admission Date/Time: 10/14/2023 [...] avoid alcohol [facility] Office: [phone] (Dr. Dinh) (Jane Norton PA-C) TEACHER Associated attestation - Sanya Dinh MD - 10/28/2023 7:30 AM TAFE TEACHER History and physical exam was done independently.Patient's [...] participate in his care. [facility] Dinh MD [facility] Fab[facility] * Sharon Crain BSW - 10/15/2023 4:23 PM CSTAssociated Order(s): CARE MANAGEMENT / SOCIAL WORK IP CONSULT Care Management Initial Consult General Information Assessment completed with: (pt's ), Type of CM/SW Visit: Initial Assessment Primary Care Provider verified and updated as needed: Readmission within the last 30 days: unable to assess Reason for Consult: discharge planning Advance Care Planning: Communication Assessment Patient's communication style: spoken language (Guyanese or Bilingual) Hearing Difficulty or Deaf: yes [...] care services: (Pt is signed up for [facility] ; has done intake) Community Resources: None [...] Chemical Dependency Status: Values/Beliefs: Spiritual, Cultural Beliefs, Sabianist Practices, Values that affect care: Additional Information: Pt is an 83 year old male who was admitted to hospital with concerns of decreased energy and persistent chest pain. Ldr Nurse met with pt at bedside. Introduced self and role. Pt is asleep. Ldr Nurse spoke with pt's .Introduced self and [...] had an intake this past Saturday with [facility] home care pr pt's for [facility]. She states they would likely be interested in PT/OT being added on if it were to be recommended by therapy. Pt's aware that care management is awaiting therapy recommendations. Ldr Nurse informed her if theyrecommend anything greater than home care then care management will stop by to discuss with pt and her. Pt's states no further questions or concerns at this time. SHELBI Pineda Social Work [facility] TEACHER * Tian Malik MD - 10/15/2023 11:18 AM CST [facility] Cardiology Consultation Date of Admission: 10/14/2023 [...] he continues to have chest pain following jain of sinus rhythm, will consider coronary angiography. 3. Community-acquired pneumonia 4. Diabetes with recurrent hypoglycemia Tian Malik MD, [facility] High complexity Tian Malik MD, , MD [...] History Past Surgical History: Procedure Laterality Date [facility] NONSPECIFIC PROCEDURE 2003 Cholecystectomy [facility] NONSPECIFIC PROCEDURE Appendectomy [facility] NONSPECIFIC PROCEDURE Lysis of adhesions for bowel [...] HDL, LDL, TRIG, CHOLHDLRATIO in the last 28061 hours. Recent Labs Lab 10/15/23 0715 10/14/23 [...] appears clear. ELO DIETRICH MD SYSTEM ID: [id number] XR Chest 2 Views Narrative CHEST TWO [...] encounter: 96.3 kg (212 lb 3.2 oz). TEACHER documented in this encounter ED Notes * Cyndee Miller RN - 10/14/2023 5:07 PM CST [facility] ED Nurse Handoff Report ED Chief complaint: [...] Current: Stand with Assist Patient's Preferred language: Guyanese Sign Writer Letterer Or Painter Needed?: No Isolation: None Infection: Not Applicable Patient tested for COVID 19 prior to admission: YES Bariatric?: No Vital Signs: Vitals: 10/14/23 1500 10/14/23 1530 10/14/23 1600 10/14/23 1630 BP: 120/82 119/70 126/84 124/83 Pulse: 98 98 93 108 Resp: Temp: TempSrc: SpO2: Cardiac Rhythm:Cardiac Rhythm: Atrial fibrillation Was the PSS-3 completed: Yes What interventions are required if any? Family Comments: family at bedside OBS brochure/video discussed/provided to patient/family: [place] of person given brochure if not patient: Relationship to patient: For the majority of the shift this patient's behavior was Green. Behavioral interventions performed were . ED NURSE PHONE NUMBER: *[id number] TEACHER * David Ahn RN - 10/14/2023 12:40 [...] WDL WDL Cognitive/Neuro/Behavioral WDL Cognitive/Neuro/Behavioral WDL WDL TEACHER * Baldev Burton, - 10/14/2023 12:38 PM CST PIT/Triage Evaluation Patient presented with chest pain and shortness of breath. The patient states that on 08/16/23, he began experiencing a tremendous central chest pain that radiated to his left chest and shoulder while walking up some stairs. He notes he was seen on the same day at [facility] and was given oxycodone which increased his [...] He is seeing Dr. Patel as his insulation sprayer. Exam is notable for: General: Patient in [...] clinician prior to leaving the hospital. Baldev Burton DO 10/14/23 1249 TEACHER * Ilan Alves MD - 10/14/2023 12:22 [...] this year where he was seen at [facility] for A-fib. Allergies: Animal Dander No Known [...] History: Past Surgical History: Procedure Laterality Date [facility] NONSPECIFIC PROCEDURE 2004 Cholecystectomy [facility] NONSPECIFIC PROCEDURE Appendectomy [facility] NONSPECIFIC PROCEDURE Lysis of adhesions for bowel [...] reviewed by me General: Pt seen on [facility], pleasant, cooperative, and alert to conversation. Non [...] Blood Pressure Ventricular Rate 103 Atrial Rate ND Interval QRS Duration 86 QT 290 QTc 379 P [place] R AXIS -40 T [place] 100 Interpretation ECG Atrial fibrillation with rapid [...] Ilan Alves* Ilan Alves MD 10/14/23 1717 TEACHER documented in this encounter Miscellaneous Notes * Result Encounter Note - Triston Knight PA-C - 10/16/2023 4:33 PM TAFE TEACHER Abnormal Zio results forwarded to Jean Claude Encarnacion, Cardiovascular Diseases at [facility] (pt hasappt 10/23). TEACHER * Plan of Care - Wen Arciniega OTR - 10/16/2023 2:51 PM CST Occupational Therapy: Orders received. Chart reviewed and discussed with care team.? Occupational Therapy not indicated due to per PT, pt mobilizing well and ind in bathroom. Discharging home and no acute IP OT needs identified.? Defer discharge recommendations to care team.? Will complete orders. TEACHER * Plan of Care - Sarah Sheth PT - 10/16/2023 12:23 PM CST Physical Therapy Discharge Summary Reason for therapy discharge: Discharged to home with home therapy. Progress towards therapy goal(s). See goals on Care Plan in [facility] electronic health record for goal details. [...] his ability to participate in therapy session. TEACHER * Plan of Care - Katelyn Nagel, NOBLE - 10/16/2023 11:15 AM CST PRIMARY Concern: [...] Patient Stated Goal for Today: Go home TEACHER * Pre-Procedure - Carter Ellis MD - [...] data, medications, and the plan for sedation TEACHER * Plan of Care - Lauryn Sanchez [...] Mg+ 1.9; pending replacement Diet: NPO since Bowel/Bladder: Continent, up to bathroom. No BM Skin Concerns: Bruise R thigh Drains/Devices: PIV SL Patient Stated Goal for Today: prep for procedures TEACHER * Utilization Review - Roberto Pacheco MD - 10/15/2023 12:19 PM TAFE TEACHER Admission Status; Secondary Review Determination Under the [...] section 70.4. Sincerely, ROBERTO PACHECO MD System Chief CookMedicare Nurse [facility]. TEACHER * Plan of Care - Lauryn Sanchez [...] Patient Stated Goal for Today: pain management. TEACHER * Pharmacy-Admission Medication History - Bridgette Arciniega, [facility] - 10/14/2023 2:27 PM CST Pharmacist Admission [...] and typed health system med list from [facility]. -atenolol: spouse verified new atenolol has been [...] not taking, finds ineffective. Changes made to BUILDER OPERATOR medication list: Added: amlodipine, oxycodone, multivitamin, magnesium, vitamin D, Areds Deleted: prednisone daily (see above, taper completed), marked duplicate Tad as such Changed: clarified gabapentin HS, specified last 4 days Lantus dosing (beginning of previous week blank on family's documentation), lidocaine added frequency, metformin added frequency Allergies reviewed with patient and updates made in EHR: no - RN reviewed Medication History Completed By: Bridgette Arciniega [facility] 10/14/2023 2:27 PM BUILDER OPERATOR Med List Medication Sig Note Last Dose [...] as needed for severe pain Unknown at PRN, has home supply rivaroxaban ANTICOAGULANT (XARELTO) 20 MG TABS tablet Take 1 tablet (20 mg) by mouth daily (with dinner) 10/13/2023 at dinner rosuvastatin (CRESTOR) 40 MG tablet Take 1 tablet (40 mg) by mouth at bedtime 10/13/2023 at HS Vitamin D3 (VITAMIN D, CHOLECALCIFEROL,) 25 mcg (1000 units) tablet Take 25 mcg by mouth daily 10/14/2023 at AM Electronically signed by Bridgette Arciniega [facility] at 10/14/2023 2:37 PM TAFE TEACHER documented in this encounter Plan of Treatment Upcoming Encounters Date Type Department Care Team (Late st Contact Info) Description 05/14/2024 12:30 PM CDT Office Visit [facility] [address] [place] [address] Gail Post MD [address] [place] [address] Anushka Carrasquillo MD [address] [place], [place] [address] Scheduled Referrals Name Type Priority Associated Diagnoses Orde r Schedule Adult Endocrinology Washer Engineer Helper Referral Referral Routine: Next available opening Type [...] AND PROVIDER INTERPRETATION Routine 10/16/2023 7:05 PM TAFE TEACHER GLUCOSE BY METER Routine 10/16/2023 12:0 6 PM TAFE TEACHER HEPATITIS A ANTIBODY IGM Routine 10/16/2023 10:22 AM TAFE TEACHER EKG 12-LEAD, TRACING ONLY Routine 10/16/2023 10:04 AM TAFE TEACHER US ABDOMEN LIMITED Routine 10/16/2023 9: 36 AM TAFE TEACHER CARDIOVERSION EXTERNAL Routine 8:35 AM TAFE TEACHER ANESTHESIA, FOR CARDIOVERSION 10/16/2023 8:20 AM TAFE TEACHER Chronic atrial fibrillation (H) GLUCOSE BY METER Routine 10/16/2023 7:29 AM TAFE TEACHER EKG 12-LEAD, TRACING ONLY STAT 10/16/2023 7:11 AM TAFE TEACHER INR STAT 10/16/2023 6:08 AM TAFE TEACHER MAGNESIUM STAT 10/16/2023 6:08 AM TAFE TEACHER HEPATITIS C ANTIBODY Add-On 10/16/2023 6:08 AM TAFE TEACHER HEPATITIS B SURFACE ANTIGEN Add-On 10/16/2023 6:08 AM TAFE TEACHER COMPREHENSIVE METABOLIC PANEL STAT 10/16/2023 6:08 AM TAFE TEACHER CBC WITH PLATELETS Routine 10/16/2023 6: 08 AM TAFE TEACHER GLUCOSE BY METER Routine 10/16/2023 1:10 AM TAFE TEACHER GLUCOSE BY METER Routine 10/15/2023 9:26 PM TAFE TEACHER GLUCOSE BY METER Routine 10/15/2023 5:29 PM TAFE TEACHER GLUCOSE BY METER Routine 10/15/2023 12:0 1 PM TAFE TEACHER XR CHEST 2 VIEWS Routine 10/15/2023 8:09 AM TAFE TEACHER GLUCOSE BY METER Routine 10/15/2023 7:39 AM TAFE TEACHER TROPONIN T, HIGH SENSITIVITY Routine 10/15/2023 7:15 AM TAFE TEACHER LIPID REFLEX TO DIRECT LDL PANEL Routine 10/15/2023 7:15 AM TAFE TEACHER COMPREHENSIVE METABOLIC PANEL Routine 10/15/2023 7:15 AM TAFE TEACHER CBC WITH PLATELETS Routine 10/15/2023 7: 15 AM TAFE TEACHER GLUCOSE BY METER Routine 10/15/2023 2:13 AM TAFE TEACHER GLUCOSE BY METER Routine 10/14/2023 10:1 1 PM TAFE TEACHER LACTIC ACID WHOLE BLOOD STAT 10/14/2023 6:53 PM TAFE TEACHER GLUCOSE BY METER Routine 10/14/2023 5:42 PM TAFE TEACHER INFLUENZA A/B, RSV, & SARS-COV2 PCR STAT 10/14/2023 4:40 PM TAFE TEACHER TROPONIN T, HIGH SENSITIVITY STAT 10/14/2023 2:57 PM TAFE TEACHER LACTIC ACID WHOLE BLOOD STAT 10/14/2023 2:57 PM TAFE TEACHER BLOOD CULTURE STAT 10/14/2023 2:28 PM TAFE TEACHER BLOOD CULTURE STAT 10/14/2023 2:20 PM TAFE TEACHER XR CHEST 2 VIEWS STAT 10/14/2023 1:12 PM TAFE TEACHER EXTRA TUBE STAT 10/14/2023 12:53 PM TAFE TEACHER EXTRA BLUE TOP TUBE STAT 10/14/2023 1 2:53 PM TAFE TEACHER CBC WITH PLATELETS AND DIFFERENTIAL STAT 10/14/2023 12:53 PM TAFE TEACHER TROPONIN T, HIGH SENSITIVITY STAT 10/14/2023 12:53 PM TAFE TEACHER PROCALCITONIN Add-On 10/14/2023 12:53 PM TAFE TEACHER CBC WITH PLATELETS & DIFFERENTIAL STAT 10/14/2023 12:53 PM TAFE TEACHER MAGNESIUM Add-On 10/14/2023 12:53 PM TAFE TEACHER LIPASE STAT 10/14/2023 12:53 PM TAFE TEACHER HEMOGLOBIN A1C Add-On 10/14/2023 12:53 PM TAFE TEACHER COMPREHENSIVE METABOLIC PANEL STAT 10/14/2023 12:53 PM TAFE TEACHER EKG 12-LEAD, TRACING ONLY STAT 10/14/2023 12:41 PM TAFE TEACHER documented in this encounter Results * HOLTER MONITOR 48 HOUR APPLICATION SCAN ANALYSIS AND PROVIDER INTERPRETATION (10/16/2023 7:05 PM TAFE TEACHER) Anatomical Region Laterality Modality Other 10/16/2023 4:17 PM TAFE TEACHER 10/21/2023 6:00 PM TAFE TEACHER Narrative 10/21/2023 6:00 PM TAFE TEACHER Kamron De León was monitored for 48 hours. Quality of the tracing was good. Predominant rhythm was Atrial fibrillation ??(61% of the recording). Average HR was 112 bpm, maximum HR was 163 bpm at 12:42 PM (Day 1), minimum HR was 74 bpm at 6:18 AM ??(Day 1). ND interval measured 0.17 seconds, QRS duration 0.09 seconds, QT interval 0.297-0.336 seconds. There were zero pauses over 2.0 seconds. 2. There were 7,774 ventricular ectopic beats (3% [employer]), 7,187 of these were isolated PVCs. There were 269 couplets and 15 ??triplets. There was one 4 beat ventricular run with a rate of 176 bpm at 6:15 PM (Day 2). 3. There were 8,313 supraventricular ectopic beats (3% [employer]), 6,963 of these were isolated PACs. There [...] were noted. 10/19/2023 Confirmed by NICANOR PATEL ([id number]) on 10/21/2023 6:00:23 PM Procedure Note Nicanor Patel MD - 10/21/2023 1. Ilan De León was monitored for 48 hours. Quality of the tracingwas good. Predominant rhythm was Atrial fibrillation (61% of therecording). Average HR was 112 bpm, maximum HR was 163 bpm at 12:42 PM (Day 1),minimum HR was 74 bpm at 6:18 AM (Day 1). ND interval measured 0.17seconds, QRS duration 0.09 seconds, QT interval 0.297-0.336 seconds. There were zero pauses over 2.0 seconds. 2. There were 7,774 ventricular ectopic beats (3% [employer]), 7,187 of thesewere isolated PVCs. There were 269 couplets and 15 triplets. There wasone 4 beat ventricular run with a rate of 176 bpm at 6:15 PM (Day 2). 3. There were 8,313 supraventricular ectopic beats (3% [employer]), 6,963 ofthese were isolated PACs. There were [...] were noted. 10/19/2023 Confirmed by NICANOR PATEL ([id number]) on 10/21/2023 6:00:23 PM Merlyn Lyon [facility] ORDERABLES * (ABNORMAL) Glucose by meter (10/16/2023 12:06 PM TAFE TEACHER) GLUCOSE BY METER POCT 154(H) 70 - 99 mg/dL 10/16/2023 12:16 PM TAFE TEACHER LABORATORY POC Blood, Capillary BLOOD SPECIMEN / Unknown 10/16/2023 12:06 PM TAFE TEACHER 10/16/2023 12:16 PM TAFE TEACHER Michelle Eckert MD LAB - BEAKER POCT LABORATORY POC [facility] Lab [address] 1[address], [address] [place] [address], [facility] [phone] * Hepatitis A antibody IgM (10/16/2023 10:22 AM TAFE TEACHER) Hepatitis A Antibody IgM Nonreactive Nonreactive 10/16/2023 3:37 PM TAFE TEACHER LABORATORY Comment:Nonreactive results indicate either inadequate or delayed anti-HAV IgM response after known exposure to HAV or absence of acute or recent hepatitis A. Blood STRUCTURE OF RIGHT UPPER LIMB / Unknown Venipuncture / Unknown 10/16/2023 10:22 AM TAFE TEACHER 10/16/2023 10:27 AM TAFE TEACHER Gail Post MD LAB - BLOOD ORDERABL ES U LABORATORY [facility] [place] [facility] [address], [address] [place] [address] [phone] * EKG 12-lead, tracing only (10/16/2023 10:04 AM TAFE TEACHER) Systolic Blood Pressure mmHg RADIOLOGY RESULTS Diastolic Blood Pressure mmHg RADIOLOGY RESULTS Ventricular Rate 91 BPM RAD IOLOGY RESULTS Atrial Rate 91 BPM RADIOLOG Y RESULTS ND Interval 182 ms RADIOLOG Y RESULTS QRS Duration 80 ms RADIOLO GY RESULTS QT 330 ms RADIOLOGY RESULTS QTc 405 ms RADIOLOGY RESULTS P [place] 74 degrees RADIOLOGY RESULTS R AXIS 19 degrees RADIOLOGY RESULTS T [place] 213 degrees RADIOLOGY RESULTS Interpretation ECG Sinus rhythm with occasional Premature ventricular complexes and Premature atrial complexes Cannot rule out Anterior infarct , age undetermined Abnormal ECG When compared with ECG of 16-OCT-2023 07:11, (unconfirmed) Sinus rhythm has replaced Atrial fibrillation Confirmed by MD ISAAC, JULIEN ([id number]), publications editor Cole Pool ([id number]) on 10/18/2023 7:58:52 AM RADIOLOGY RESULTS 10/16/2023 10:0 4 AM TAFE TEACHER 10/18/2023 7:58 AM TAFE TEACHER Carter Ellis MD ECG ORDERABLES RADIOLOGY RESULTS * US Abdomen Limited (10/16/2023 9:36 AM TAFE TEACHER) Anatomical Region Laterality Modality Abdomen/Pelvis Ultrasound Impressions 10/16/2023 10:25 AM TAFE TEACHER IMPRESSION: 1. ??Hepatic steatosis, similar to previous. TRAVON HARRIS MD Narrative 10/16/2023 10:25 AM TAFE TEACHER US ABDOMEN LIMITED 10/16/2023 9:36 AM CLINICAL [...] ORDERABLES * CARDIOVERSION EXTERNAL (10/16/2023 8:35 AM TAFE TEACHER) Anatomical Region Laterality Modality Other Narrative 10/16/2023 8:35 AM TAFE TEACHER Carter Ellis MD ? 10/16/2023 ??9:05 AM [facility] Procedure: EP Cardioversion External Date/Time: 10/16/2023 [...] procedure a time out was called ?? [place] Protocol: the Joint Commission [place] Protocol was followed ?? Preparation: Patient was [...] (ABNORMAL) Glucose by meter (10/16/2023 7:29 AM TAFE TEACHER) GLUCOSE BY METER POCT 128(H) 70 - 99 mg/dL 10/16/2023 7:36 AM TAFE TEACHER LABORATORY POC Blood, Capillary BLOOD SPECIMEN / Unknown 10/16/2023 7:29 AM TAFE TEACHER 10/16/2023 7:36 AM TAFE TEACHER Michelle Eckert MD LAB - BEAKER POCT LABORATORY POC [facility] Acute [facility] Lab [address], [address] [place] [address], [facility] [phone] * EKG 12-lead, tracing only (10/16/2023 7:11 AM TAFE TEACHER) Systolic Blood Pressure mmHg RADIOLOGY RESULTS Diastolic Blood Pressure mmHg RADIOLOGY RESULTS Ventricular Rate 108 BPM RAD IOLOGY RESULTS Atrial Rate 115 BPM RADIOLOG Y RESULTS ND Interval ms RADIOLOG Y RESULTS QRS Duration 84 ms RADIOLO GY RESULTS QT 308 ms RADIOLOGY RESULTS QTc 412 ms RADIOLOGY RESULTS P [place] degrees RADIOLOGY RESULTS R AXIS -31 degrees RADIOLOGY RESULTS T [place] 174 degrees RADIOLOGY RESULTS Interpretation ECG Atrial fibrillation with rapid ventricular response with premature ventricular or aberrantly conducted complexes Left axis deviation Nonspecific ST and T wave abnormality Abnormal ECG When compared with ECG of 14-OCT-2023 12:41, Nonspecific T wave abnormality now evident in Inferior leads Nonspecific T wave abnormality, worse in Lateral leads Confirmed by STACY FITZGERALD ([id number]), publications editor Cole Pool ([id number]) on 10/18/2023 8:02:41 AM RADIOLOGY RESULTS 10/16/2023 7:11 AM TAFE TEACHER 10/18/2023 8:02 AM TAFE TEACHER Michelle Eckert MD ECG ORDERABLES RADIOLOGY RESULTS * Hepatitis C antibody (10/16/2023 6:08 AM TAFE TEACHER) Hepatitis C Antibody Nonreactive Nonreactive 10/16/2023 3:31 PM TAFE TEACHER [facility] Comment:A nonreactive screen ing test [...] Unknown Venipuncture / Unknown 10/16/2023 6:08 AM TAFE TEACHER 10/16/2023 6:16 AM TAFE TEACHER Gail Post MD LAB - BLOOD ORDERABL ES Performing Organization Address City/[facility]/ZIP Co de Phone Number LABORATORY [facility] [place] [facility] [address], [address] [address], [facility] [phone] * Hepatitis B surface antigen (10/16/2023 6:08 AM TAFE TEACHER) Pathologist [facility] Hepatitis B Surface Antigen Nonreactive Nonreactive 10/16/2023 3:31 PM TAFE TEACHER LABORATORY Blood STRUCTURE OF RIGHT HAND / Unknown Venipuncture / Unknown 10/16/2023 6:08 AM TAFE TEACHER 10/16/2023 6:16 AM TAFE TEACHER Gail Post MD LAB - BLOOD ORDERABL ES Performing Organization Address City/[facility]/ZIP Co de Phone Number LABORATORY [facility] [place] [facility] [address], [address] [address], [facility] [phone] * (ABNORMAL) Comprehensive metabolic panel (10/16/2023 6:08 AM TAFE TEACHER) Sodium 141 135 - 145 mmol/L 10/16/2023 6:42 AM TAFE TEACHER LABORATORY Comment:Reference intervals for this test were updated on 05/28/2023 to more accurately reflect our healthy population. There may be differences in the flagging of prior results with similar values performed with this method. Interpretation of those prior results can be made in the context of the updated reference intervals. Potassium 3.9 3.4 - 5.3 mmol/L 10/16/2023 6:42 AM [facility] Carbon Dioxide (CO2) 27 22 - 29 mmol/L 10/16/2023 6:42 AM [facility] Anion Gap 11 7 - 15 mmol/L 10/16/2023 6:42 AM [facility] Urea Nitrogen 27.2(H) 8.0 - 23.0 mg/dL 10/16/2023 6:42 AM [facility] Creatinine 1.38(H) 0.67 - 1.17 mg/dL 10/16/2023 6:42 AM [facility] GFR Estimate 51(L) >60 mL/min/1. 73m2 10/16/2023 6:42 AM [facility] Calcium 9.1 8.8 - 10.2 mg/dL 10/16/2023 6:42 AM [facility] Chloride 103 98 - 107 mmol/L 10/16/2023 6:42 AM [facility] Glucose 135(H) 70 - 99 mg/dL 10/16/2023 6:42 AM [facility] Alkaline Phosphatase 107 40 - 150 U/L 10/16/2023 6:42 AM [facility] Comment:Reference intervals for this test were updated on 07/16/2023 to more accurately reflect our healthy population. There may be differences in the flagging of prior results with similar values performed with this method. Interpretation of those prior results can be made in the context of the updated reference intervals. AST 193(H) 0 - 45 U/L 10/16/2023 6:42 AM [facility] Comment:Reference intervals for this test were updated on 02/11/2023 to more accurately reflect our healthy population. There may be differences in the flagging of prior results with similar values performed with this method. Interpretation of those prior results can be made in the context of the updated reference intervals. ALT 240(H) 0 - 70 U/L 10/16/2023 6:42 AM [facility] Comment:Reference intervals for this test were updated on 02/11/2023 to more accurately reflect our healthy population. There may be differences in the flagging of prior results with similar values performed with this method. Interpretation of those prior results can be made in the context of the updated reference intervals. Protein Total 6.4 6.4 - 8.3 g/dL 10/16/2023 6:42 AM [facility] Albumin 2.9(L) 3.5 - 5.2 g/dL 10/16/2023 6:42 AM [facility] Bilirubin Total 0.3 <=1.2 mg/dL 10/16/2023 6:42 AM [facility] Blood STRUCTURE OF RIGHT HAND / Unknown Venipuncture / Unknown 10/16/2023 6:08 AM TAFE TEACHER 10/16/2023 6:16 AM [facility] Bacilio Steele MD LAB - BLOOD OR DERABLES LABORATORY [facility] Acute [facility] Lab [address], [address] [place] [address], [facility] [phone] * (ABNORMAL) CBC with platelets (10/16/2023 6:08 AM [facility]) WBC Count 10.7 4.0 - 11.0 10e3/uL 10/16/2023 6:22 AM [facility] RBC Count 4.08(L) 4.40 - 5.90 10e6/uL 10/16/2023 6:22 AM [facility] Hemoglobin 12.6(L) 13.3 - 17.7 g/dL 10/16/2023 6:22 AM [facility] Hematocrit 38.5(L) 40.0 - 53.0 % 10/16/2023 6:22 AM [facility] MCV 94 78 - 100 fL 10/16/2023 6:22 AM [facility] MCH 30.9 26.5 - 33.0 pg 10/16/2023 6:22 AM [facility] MCHC 32.7 31.5 - 36.5 g/dL 10/16/2023 6:22 AM [facility] RDW 12.8 10.0 - 15.0 % 10/16/2023 6:22 AM [facility] Platelet Count 493(H) 150 - 450 10e3/uL 10/16/2023 6:22 AM [facility] Blood STRUCTURE OF RIGHT HAND / Unknown Venipuncture / Unknown 10/16/2023 6:08 AM TAFE TEACHER 10/16/2023 6:16 AM TAFE TEACHER Bacilio Steele MD LAB - BLOOD OR DERABLES LABORATORY [facility] [address], [address] [place] [address], [facility] [phone] * Magnesium (10/16/2023 6:08 AM TAFE TEACHER) Magnesium 1.9 1.7 - 2.3 mg/dL 10/16/2023 6:42 AM TAFE TEACHER LABORATORY Blood STRUCTURE OF RIGHT HAND / Unknown Venipuncture / Unknown 10/16/2023 6:08 AM TAFE TEACHER 10/16/2023 6:16 AM TAFE TEACHER Merlyn Lyon CNP LAB - BLOOD ORDERAB LES Performing Organization Address City/[facility]/ZIP Co de Phone Number LABORATORY [facility] [address], [address], [place] [address], [facility] [phone] * (ABNORMAL) INR (10/16/2023 6:08 AM TAFE TEACHER) INR 3.26(H) 0.85 - 1.15 10/16/2023 6:45 AM TAFE TEACHER LABORATORY Blood STRUCTURE OF RIGHT HAND / Unknown Venipuncture / Unknown 10/16/2023 6:08 AM TAFE TEACHER 10/16/2023 6:16 AM TAFE TEACHER Merlyn Lyon CNP LAB - BLOOD ORDERAB LES LABORATORY [facility] [address], [address] [place] [address], [facility] [phone] * (ABNORMAL) Glucose by meter (10/16/2023 1:10 AM TAFE TEACHER) GLUCOSE BY METER POCT 169(H) 70 - 99 mg/dL 10/16/2023 1:20 AM TAFE TEACHER LABORATORY POC Blood, Capillary BLOOD SPECIMEN / Unknown 10/16/2023 1:10 AM TAFE TEACHER 10/16/2023 1:20 AM TAFE TEACHER Michelle TONEY - ASHER POCT LABORATORY POC [facility] Lab [address], [address] [place] [address], [place] [phone] * (ABNORMAL) Glucose by meter (10/15/2023 9:26 PM TAFE TEACHER) GLUCOSE BY METER POCT 219(H) 70 - 99 mg/dL 10/15/2023 9:33 PM TAFE TEACHER LABORATORY POC Blood, Capillary BLOOD SPECIMEN / Unknown 10/15/2023 9:26 PM TAFE TEACHER 10/15/2023 9:33 PM TAFE TEACHER Michelle STERLING POCT LABORATORY POC [facility] Lab [address], [address] [place] [address], [place] [phone] * (ABNORMAL) Glucose by meter (10/15/2023 5:29 PM TAFE TEACHER) GLUCOSE BY METER POCT 218(H) 70 - 99 mg/dL 10/15/2023 5:40 PM TAFE TEACHER LABORATORY POC Blood, Capillary BLOOD SPECIMEN / Unknown 10/15/2023 5:29 PM TAFE TEACHER 10/15/2023 5:40 PM TAFE TEACHER Michelle STERLING POCT LABORATORY POC [facility] Lab [address], [address] [place] [address], [place] [phone] * (ABNORMAL) Glucose by meter (10/15/2023 12:01 PM TAFE TEACHER) GLUCOSE BY METER POCT 130(H) 70 - 99 mg/dL 10/15/2023 12:07 PM TAFE TEACHER LABORATORY POC Blood, Capillary BLOOD SPECIMEN / Unknown 10/15/2023 12:01 PM TAFE TEACHER 10/15/2023 12:07 PM TAFE TEACHER Michelle Eckert MD LAB - BEAKER POCT LABORATORY POC [facility] Lab [address], [address] [place] [address], [facility] [phone] * XR Chest 2 Views (10/15/2023 8:09 AM TAFE TEACHER) Anatomical Region Laterality Modality Chest Digital Radiogra phy Impressions 10/15/2023 9:13 AM TAFE TEACHER IMPRESSION: Stable cardiac silhouette which is partially obscured. Similar opacification of the left lung base which is favored secondary to a moderate-sized left pleural effusion with underlying consolidation not excluded. Similar calcified granuloma of the right lung base. No discernible pneumothorax. No acute displaced fracture. PRECIOUS YOON MD Narrative 10/15/2023 9:13 AM TAFE TEACHER CHEST TWO VIEWS 10/15/2023 8:09 AM HISTORY: [...] (ABNORMAL) Glucose by meter (10/15/2023 7:39 AM TAFE TEACHER) GLUCOSE BY METER POCT 122(H) 70 - 99 mg/dL 10/15/2023 7:46 AM TAFE TEACHER LABORATORY POC Blood, Capillary BLOOD SPECIMEN / Unknown 10/15/2023 7:39 AM TAFE TEACHER 10/15/2023 7:46 AM TAFE TEACHER Michelle Eckert MD LAB - BEAKER POCT LABORATORY POC [facility] Lab [address], [address] [place] [address], [facility] [phone] * (ABNORMAL) Lipid panel reflex to direct LDL (10/15/2023 7:15 AM TAFE TEACHER) Cholesterol 66 <200 mg/dL 10/15/2023 11:29 AM TAFE TEACHER [facility] Triglycerides 65 <150 mg/dL 10/15/2023 11:29 AM TAFE TEACHER [facility] Direct Measure HDL 26(L) >=40 mg/dL 2023 11:29 AM TAFE TEACHER [facility] LDL Cholesterol Calculated 27 <=100 mg/dL 10/15/2023 11:29 AM TAFE TEACHER [facility] Non HDL Cholesterol 40 <130 mg/dL 10/15/2023 11:29 AM TAFE TEACHER [facility] Patient Fasting > 8hrs? Yes 10/15/2023 11:29 AM TAFE TEACHER LABORATORY Blood STRUCTURE OF RIGHT UPPER LIMB / Unknown Venipuncture / Unknown 10/15/2023 7:15 AM TAFE TEACHER 10/15/2023 7:39 AM TAFE TEACHER Narrative [facility] - 10/15/2023 11:29 AM TAFE TEACHER Cholesterol Desirable: ??<200 mg/dL Triglycerides Normal: ??Less [...] Dulce Fisher PA-C LAB - BLOOD ORDERABLES U LABORATORY [facility] [place] [facility] [address] [facility], [address] [place] [address], [place] [phone] LABORATORY [facility] Lab [address], [address] [place] [address], [place] [phone] * (ABNORMAL) Troponin T, High Sensitivity (10/15/2023 7:15 AM TAFE TEACHER) [facility] Troponin T, High Sensitivity 30(H) <=22 ng/L 10/15/2023 8:11 AM TAFE TEACHER LABORATORY Comment: Either a High Sensitivity Troponin [...] Unknown Venipuncture / Unknown 10/15/2023 7:15 AM TAFE TEACHER 10/15/2023 7:39 AM TAFE TEACHER Dulce Fisher PA-C LAB - BLOOD ORDERABLES LABORATORY [facility] [address] 1[address], [address] [place] [address], [facility] [phone] * (ABNORMAL) CBC with platelets (10/15/2023 7:15 AM TAFE TEACHER) [facility] WBC Count 15.3(H) 4.0 - 11.0 10e3/uL 10/15/2023 7:43 AM [facility] RBC Count 4.00(L) 4.40 - 5.90 10e6/uL 10/15/2023 7:43 AM [facility] Hemoglobin 12.4(L) 13.3 - 17.7 g/dL 10/15/2023 7:43 AM [facility] Hematocrit 36.9(L) 40.0 - 53.0 % 10/15/2023 7:43 AM [facility] MCV 92 78 - 100 fL 10/15/2023 7:43 AM [facility] MCH 31.0 26.5 - 33.0 pg 10/15/2023 7:43 AM [facility] MCHC 33.6 31.5 - 36.5 g/dL 10/15/2023 7:43 AM [facility] RDW 12.6 10.0 - 15.0 % 10/15/2023 7:43 AM [facility] Platelet Count 566(H) 150 - 450 10e3/uL 10/15/2023 7:43 AM [facility] Blood STRUCTURE OF RIGHT UPPER LIMB / Unknown Venipuncture / Unknown 10/15/2023 7:15 AM TAFE TEACHER 10/15/2023 7:39 AM TAFE TEACHER Dulce Fisher PA-C LAB - BLOOD ORDERABLES LABORATORY [facility] [address] 1[address], [address] [place] [address], [place] [phone] * (ABNORMAL) Comprehensive metabolic panel (10/15/2023 7:15 AM TAFE TEACHER) [facility] Sodium 138 135 - 145 mmol/L 10/15/2023 8:11 AM [facility] Comment:Reference intervals for this test were updated on 05/28/2023 to more accurately reflect our healthy population. There may be differences in the flagging of prior results with similar values performed with this method. Interpretation of those prior results can be made in the context of the updated reference intervals. Potassium 3.8 3.4 - 5.3 mmol/L 10/15/2023 8:11 AM [facility] Carbon Dioxide (CO2) 26 22 - 29 mmol/L 10/15/2023 8:11 AM [facility] Anion Gap 12 7 - 15 mmol/L 10/15/2023 8:11 AM [facility] Urea Nitrogen 26.1(H) 8.0 - 23.0 mg/dL 10/15/2023 8:11 AM [facility] Creatinine 1.41(H) 0.67 - 1.17 mg/dL 10/15/2023 8:11 AM [facility] GFR Estimate 49(L) >60 mL/min/1. 73m2 10/15/2023 8:11 AM [facility] Calcium 9.0 8.8 - 10.2 mg/dL 10/15/2023 8:11 AM [facility] Chloride 100 98 - 107 mmol/L 10/15/2023 8:11 AM [facility] Glucose 120(H) 70 - 99 mg/dL 10/15/2023 8:11 AM [facility] Alkaline Phosphatase 87 40 - 150 U/L 10/15/2023 8:11 AM [facility] Comment:Reference intervals for this test were updated on 07/16/2023 to more accurately reflect our healthy population. There may be differences in the flagging of prior results with similar values performed with this method. Interpretation of those prior results can be made in the context of the updated reference intervals. AST 64(H) 0 - 45 U/L 10/15/2023 8:11 AM [facility] Comment:Reference intervals for this test were updated on 02/11/2023 to more accurately reflect our healthy population. There may be differences in the flagging of prior results with similar values performed with this method. Interpretation of those prior results can be made in the context of the updated reference intervals. ALT 123(H) 0 - 70 U/L 10/15/2023 8:11 AM [facility] Comment:Reference intervals for this test were updated on 02/11/2023 to more accurately reflect our healthy population. There may be differences in the flagging of prior results with similar values performed with this method. Interpretation of those prior results can be made in the context of the updated reference intervals. Protein Total 6.4 6.4 - 8.3 g/dL 10/15/2023 8:11 AM [facility] Albumin 3.1(L) 3.5 - 5.2 g/dL 10/15/2023 8:11 AM [facility] Bilirubin Total 0.5 <=1.2 mg/dL 10/15/2023 8:11 AM [facility] Blood STRUCTURE OF RIGHT UPPER LIMB / Unknown Venipuncture / Unknown 10/15/2023 7:15 AM TAFE TEACHER 10/15/2023 7:39 AM TAFE TEACHER Dulce Fisher PA-C LAB - BLOOD ORDERABLES [facility] [address] 1[address], [address] [place] [address], [facility] [phone] * (ABNORMAL) Glucose by meter (10/15/2023 2:13 AM TAFE TEACHER) Pathologist [facility] GLUCOSE BY METER POCT 171(H) 70 - 99 mg/dL 10/15/2023 2:20 AM [facility] POC Blood, Capillary BLOOD SPECIMEN / Unknown 10/15/2023 2:13 AM TAFE TEACHER 10/15/2023 2:20 AM TAFE TEACHER Michelle Eckert MD LAB - BEAKER POCT [facility] [address] 1[address], [address] [place] [address], [place] [phone] * (ABNORMAL) Glucose by meter (10/14/2023 10:11 PM TAFE TEACHER) GLUCOSE BY METER POCT 221(H) 70 - 99 mg/dL 10/14/2023 10:19 PM TAFE TEACHER LABORATORY POC Blood, Capillary BLOOD SPECIMEN / Unknown 10/14/2023 10:11 PM TAFE TEACHER 10/14/2023 10:19 PM TAFE TEACHER Michelle Eckert MD LAB - BEAKER POCT LABORATORY POC [facility] [address] 1[address], [address] [place] [address], [place] [phone] * Lactic acid whole blood (10/14/2023 6:53 PM TAFE TEACHER) Lactic Acid 1.4 0.7 - 2.0 mmol/L 10/14/2023 7:02 PM TAFE TEACHER LABORATORY Blood STRUCTURE OF RIGHT HAND / Unknown Venipuncture / Unknown 10/14/2023 6:53 PM TAFE TEACHER 10/14/2023 6:59 PM TAFE TEACHER Dulce Fisher PA-C LAB - BLOOD ORDERABLES [facility] [address] 1[address], [address] [place] [address], [place] [phone] * (ABNORMAL) Glucose by meter (10/14/2023 5:42 PM TAFE TEACHER) GLUCOSE BY METER POCT 134(H) 70 - 99 mg/dL 10/14/2023 6:38 PM TAFE TEACHER LABORATORY POC Blood, Capillary BLOOD SPECIMEN / Unknown 10/14/2023 5:42 PM TAFE TEACHER 10/14/2023 6:38 PM TAFE TEACHER Michelle TONEY - BESUSANNA POCT LABORATORY POC [facility] [address], [address] [place] [address], [facility] [phone] * Asymptomatic Influenza A/B, RSV, & SARS-CoV2 PCR (COVID-19) Nasopharyngeal (10/14/2023 4:40 PM TAFE TEACHER) Influenza A PCR Negative Negative 10/14/2023 6:12 PM TAFE TEACHER LABORATORY Influenza B PCR Negative Negative 10/14/2023 6:12 PM TAFE TEACHER LABORATORY RSV PCR Negative Negative 10/14/2023 6:12 PM TAFE TEACHER LABORATORY SARS CoV2 PCR Negative Negative 10/14/2023 6:12 PM TAFE TEACHER LABORATORY Comment:NEGATIVE: SARS-CoV-2 (COVID-19) RNA not detected, presumed negative. Swab NASOPHARYNGEAL STRUCTURE / Unknown Non-blood Collection / Unknown 10/14/2023 4:40 PM TAFE TEACHER 10/14/2023 4:50 PM TAFE TEACHER [facility] LABORATORY - 10/14/2023 6:12 PM TAFE TEACHER Testing was performed using the Xpert Xpress CoV2/Flu/RSV Assay on the [employer] GeneXpert Instrument. This test should be ordered [...] management. This test was validated by the [facility]. These laboratories are certified under the Clinical Laboratory Improvement Amendments of 1988 (CLIA-88) as qualified to perform high complexity laboratory testing. Dulce Fisher PA-C LAB - MICRO GENERAL ORDERABLES LABORATORY [facility] [address] 1[address] floor, [address] [place] [address], [facility] [phone] * (ABNORMAL) Troponin T, High Sensitivity (10/14/2023 2:57 PM TAFE TEACHER) Troponin T, High Sensitivity 24(H) <=22 ng/L 10/14/2023 3:30 PM TAFE TEACHER LABORATORY Comment: Either a High Sensitivity Troponin [...] Unknown Venipuncture / Unknown 10/14/2023 2:57 PM TAFE TEACHER 10/14/2023 3:04 PM TAFE TEACHER uDlce Fisher PA-C LAB - BLOOD ORDERABLES LABORATORY [facility] [address], [address] [place] [address], [facility] [phone] * (ABNORMAL) Lactic Acid STAT (10/14/2023 2:57 PM TAFE TEACHER) Lactic Acid 3.1(H) 0.7 - 2.0 mmol/L 10/14/2023 3:15 PM TAFE TEACHER LABORATORY Blood BLOOD SPECIMEN / Unknown Venipuncture / Unknown 10/14/2023 2:57 PM TAFE TEACHER 10/14/2023 3:04 PM TAFE TEACHER Dulce Fisher PA-C LAB - BLOOD ORDERABLES LABORATORY [facility] [address], [address] [place] [address], [facility] [phone] * Blood Culture Hand, Right (10/14/2023 2:28 PM TAFE TEACHER) Culture No Growth 10/19/2023 5:32 PM TAFE TEACHER [facility] Blood STRUCTURE OF RIGHT HAND / Unknown Venipuncture / Unknown 10/14/2023 2:28 PM TAFE TEACHER 10/14/2023 2:35 PM TAFE TEACHER Narrative [facility] - 10/19/2023 5:32 PM TAFE TEACHER Only an Aerobic Blood Culture Bottle was collected, interpret results with caution. Ilan [employer] GENERAL ORDERABLES [facility] Lab [address] [facility], [address] [address], [facility] [phone] * Blood Culture Hand, Left (10/14/2023 2:20 PM TAFE TEACHER) Culture No Growth 10/19/2023 5:32 PM TAFE TEACHER [facility] Blood STRUCTURE OF LEFT HAND / Unknown Venipuncture / Unknown 10/14/2023 2:20 PM TAFE TEACHER 10/14/2023 2:35 PM TAFE TEACHER Narrative [facility] - 10/19/2023 5:32 PM TAFE TEACHER Only an Aerobic Blood Culture Bottle was collected, interpret results with caution. Ilan [employer] GENERAL ORDERABLES [facility]. [facility] Lab [address] [facility], [address] [address], [place] [phone] * Chest XR, PA & LAT (10/14/2023 1:12 PM TAFE TEACHER) Anatomical Region Laterality Modality Chest Digital Radiogra phy Impressions 10/14/2023 6:08 PM TAFE TEACHER IMPRESSION: New finding of small-moderate left pleural fluid. New consolidation or atelectasis at the left lung base. Obscured cardiac silhouette. Right lung appears clear. ELO DIETRICH MD SYSTEM ID: [id number] Narrative 10/14/2023 6:08 PM TAFE TEACHER CHEST TWO VIEWS ??10/14/2023 1:12 PM HISTORY: Chest pain. COMPARISON: CT chest 08/16/2023. Procedure Note Elo Dietrich MD - 10/14/2023 CHEST TWO VIEWS 10/14/2023 1:12 PM HISTORY: Chest pain. COMPARISON: CT chest 08/16/2023. IMPRESSION: New finding of small-moderate left pleural fluid. New consolidation or atelectasis at the left lung base. Obscured cardiac silhouette. Right lung appears clear. ELO DIETRICH MD SYSTEM ID: [id number] Baldev Burton DO IMG DIAGNO STIC IMAGING ORDERABLES * (ABNORMAL) Hemoglobin A1c (10/14/2023 12:53 PM TAFE TEACHER) Pathologist [facility] Hemoglobin A1C 8.4(H) <5.7 % 10/14/2023 4:04 PM TAFE TEACHER LABORATORY Comment: Normal <5.7% Prediabetes 5.7-6.4% ?? Diabetes 6.5% or higher Note: Adopted from ADA consensus guidelines. Blood STRUCTURE OF LEFT UPPER LIMB / Unknown Venipuncture / Unknown 10/14/2023 12:53 PM TAFE TEACHER 10/14/2023 12:57 PM TAFE TEACHER Dulce Fisher PA-C LAB - BLOOD ORDERABLES LABORATORY [facility] [address] 1[address], [address] [place] [address], [facility] [phone] * Magnesium (10/14/2023 12:53 PM TAFE TEACHER) Pathologist [facility] Magnesium 1.8 1.7 - 2.3 mg/dL 10/14/2023 3:40 PM TAFE TEACHER LABORATORY Blood STRUCTURE OF LEFT UPPER LIMB / Unknown Venipuncture / Unknown 10/14/2023 12:53 PM TAFE TEACHER 10/14/2023 12:57 PM TAFE TEACHER Dulce Fisher PA-C LAB - BLOOD ORDERABLES LABORATORY [facility] [address], [address] [place] [address], [facility] [phone] * Procalcitonin (10/14/2023 12:53 PM TAFE TEACHER) [facility] Procalcitonin 0.07 <0.50 ng/mL 10/14/2023 2:31 PM TAFE TEACHER LABORATORY Comment: Interpretation and Recommendations <0.5 ng/mL: Systemic bacterial infection unlikely. Local bacterial infection is possible. 0.5-1.99 ng/mL: Systemic bacterial infection possible, but various other conditions are known to induce PCT as well. >=2.00 ng/mL: Systemic bacterial infection likely, unless other causes are known. Decision to start antibiotics should not be based on procalcitonin level alone. See Procalcitonin Guidance document for more details. [email or web address] Factors that may affect PCT levels (not [...] Unknown Venipuncture / Unknown 10/14/2023 12:53 PM TAFE TEACHER 10/14/2023 12:57 PM TAFE TEACHER Dulce Fisher PA-C LAB - BLOOD ORDERABLES LABORATORY [facility] [address] 1[address], [address] [place] [address], [facility] [phone] * Extra Blue Top Tube (10/14/2023 12:53 PM TAFE TEACHER) Hold Specimen [facility] 10/14/2023 2:04 PM TAFE TEACHER LABORATORY Blood STRUCTURE OF LEFT UPPER LIMB / Unknown Venipuncture / Unknown 10/14/2023 12:53 PM TAFE TEACHER 10/14/2023 12:57 PM TAFE TEACHER Baldev Burton DO LAB - BLOO D ORDERABLES LABORATORY [facility] [address], [address] [place] [address], [place] [phone] * (ABNORMAL) CBC with platelets and differential (10/14/2023 12:53 PM TAFE TEACHER) WBC Count 18.5(H) 4.0 - 11.0 10e3/uL 10/14/2023 1:02 PM TAFE TEACHER LABORATORY RBC Count 4.25(L) 4.40 - 5.90 10e6/uL 10/14/2023 1:02 PM TAFE TEACHER LABORATORY Hemoglobin 13.1(L) 13.3 - 17.7 g/dL 10/14/2023 1:02 PM [facility] Hematocrit 40.0 40.0 - 53.0 % 10/14/2023 1:02 PM [facility] MCV 94 78 - 100 fL 10/14/2023 1:02 PM [facility] MCH 30.8 26.5 - 33.0 pg 10/14/2023 1:02 PM [facility] MCHC 32.8 31.5 - 36.5 g/dL 10/14/2023 1:02 PM [facility] RDW 12.7 10.0 - 15.0 % 10/14/2023 1:02 PM [facility] Platelet Count 574(H) 150 - 450 10e3/uL 10/14/2023 1:02 PM [facility] % Neutrophils 83 % 10/14/2023 1:02 PM [facility] % Lymphocytes 10 % 10/14/2023 1:02 PM [facility] % Monocytes 6 % 10/14/2023 1:02 PM [facility] % Eosinophils 0 % 10/14/2023 1:02 PM [facility] % Basophils 0 % 10/14/2023 1:02 PM [facility] % Immature Granulocytes 1 % 10/14/2023 1:02 PM [facility] NRBCs per 100 WBC 0 <1 /100 024 1:02 PM [facility] Absolute Neutrophils 15.2(H) 1.6 - 8.3 10e3/uL 10/14/2023 1:02 PM [facility] Absolute Lymphocytes 1.9 0.8 - 5.3 10e3/uL 10/14/2023 1:02 PM [facility] Absolute Monocytes 1.1 0.0 - 1.3 10e3/uL 10/14/2023 1:02 PM [facility] Absolute Eosinophils 0.0 0.0 - 0.7 10e3/uL 10/14/2023 1:02 PM [facility] Absolute Basophils 0.1 0.0 - 0.2 10e3/uL 10/14/2023 1:02 PM [facility] Absolute Immature Granulocytes 0.1 <=0.4 10e3/uL 10/14/2023 1:02 PM [facility] Absolute NRBCs 0.0 10e3/uL 10/14/2023 1:02 PM TAFE TEACHER LABORATORY Blood STRUCTURE OF LEFT UPPER LIMB / Unknown Venipuncture / Unknown 10/14/2023 12:53 PM TAFE TEACHER 10/14/2023 12:57 PM TAFE TEACHER Baldev Burton DO LAB - BLOO D ORDERABLES LABORATORY [facility] [address], [address] [place] [address], [facility] [phone] * (ABNORMAL) Troponin T, High Sensitivity (10/14/2023 12:53 PM TAFE TEACHER) [facility] Troponin T, High Sensitivity 25(H) <=22 ng/L 10/14/2023 1:22 PM TAFE TEACHER LABORATORY Comment: Either a High Sensitivity Troponin [...] Unknown Venipuncture / Unknown 10/14/2023 12:53 PM TAFE TEACHER 10/14/2023 12:57 PM TAFE TEACHER Baldev Burton DO LAB - BLOO D ORDERABLES LABORATORY [facility] [address], [address] [place] [address], [place] [phone] * Lipase (10/14/2023 12:53 PM TAFE TEACHER) Lipase 60 13 - 60 U/L 10/14/2023 1:22 PM [facility] Blood STRUCTURE OF LEFT UPPER LIMB / Unknown Venipuncture / Unknown 10/14/2023 12:53 PM TAFE TEACHER 10/14/2023 12:57 PM TAFE TEACHER Baldev Burton DO LAB - BLOO D ORDERABLES LABORATORY [facility] [address], [address] [place] [address], [facility] [phone] * (ABNORMAL) Comprehensive metabolic panel (10/14/2023 12:53 PM [facility]) Sodium 134(L) 135 - 145 mmol/L 10/14/2023 1:22 PM [facility] Comment:Reference intervals for this test were updated on 05/28/2023 to more accurately reflect our healthy population. There may be differences in the flagging of prior results with similar values performed with this method. Interpretation of those prior results can be made in the context of the updated reference intervals. Potassium 4.0 3.4 - 5.3 mmol/L 10/14/2023 1:22 PM [facility] Carbon Dioxide (CO2) 29 22 - 29 mmol/L 10/14/2023 1:22 PM [facility] Anion Gap 12 7 - 15 mmol/L 10/14/2023 1:22 PM [facility] Urea Nitrogen 30.1(H) 8.0 - 23.0 mg/dL 10/14/2023 1:22 PM [facility] Creatinine 1.49(H) 0.67 - 1.17 mg/dL 10/14/2023 1:22 PM [facility] GFR Estimate 46(L) >60 mL/min/1. 73m2 10/14/2023 1:22 PM [facility] Calcium 9.2 8.8 - 10.2 mg/dL 10/14/2023 1:22 PM [facility] Chloride 93(L) 98 - 107 mmol/L 10/14/2023 1:22 PM [facility] Glucose 201(H) 70 - 99 mg/dL 10/14/2023 1:22 PM [facility] Alkaline Phosphatase 92 40 - 150 U/L 10/14/2023 1:22 PM [facility] Comment:Reference intervals for this test were updated on 07/16/2023 to more accurately reflect our healthy population. There may be differences in the flagging of prior results with similar values performed with this method. Interpretation of those prior results can be made in the context of the updated reference intervals. AST 65(H) 0 - 45 U/L 10/14/2023 1:22 PM [facility] Comment:Reference intervals for this test were updated on 02/11/2023 to more accurately reflect our healthy population. There may be differences in the flagging of prior results with similar values performed with this method. Interpretation of those prior results can be made in the context of the updated reference intervals. ALT 118(H) 0 - 70 U/L 10/14/2023 1:22 PM [facility] Comment:Reference intervals for this test were updated on 02/11/2023 to more accurately reflect our healthy population. There may be differences in the flagging of prior results with similar values performed with this method. Interpretation of those prior results can be made in the context of the updated reference intervals. Protein Total 6.9 6.4 - 8.3 g/dL 10/14/2023 1:22 PM [facility] Albumin 3.4(L) 3.5 - 5.2 g/dL 10/14/2023 1:22 PM [facility] Bilirubin Total 0.6 <=1.2 mg/dL 10/14/2023 1:22 PM [facility] Blood STRUCTURE OF LEFT UPPER LIMB / Unknown Venipuncture / Unknown 10/14/2023 12:53 PM TAFE TEACHER 10/14/2023 12:57 PM TAFE TEACHER Baldev Burton DO LAB - BLOO D ORDERABLES LABORATORY [facility] [address], [address] [place] [address], [facility] [phone] * EKG 12 lead (10/14/2023 12:41 PM TAFE TEACHER) Systolic Blood Pressure mmHg RADIOLOGY RESULTS Diastolic Blood Pressure mmHg RADIOLOGY RESULTS Ventricular Rate 103 BPM RAD IOLOGY RESULTS Atrial Rate BPM RADIOLOG Y RESULTS ND Interval ms RADIOLOG Y RESULTS QRS Duration 86 ms RADIOLO GY RESULTS QT 290 ms RADIOLOGY RESULTS QTc 379 ms RADIOLOGY RESULTS P [place] degrees RADIOLOGY RESULTS R AXIS -40 degrees RADIOLOGY RESULTS T [place] 100 degrees RADIOLOGY RESULTS Interpretation ECG Atrial [...] leads Confirmed by GENERATED REPORT, COMPUTER ([id number]), publications editor ESTEVAN MCDANIELS ([id number]) on 10/14/2023 3:56:41 PM RADIOLOGY RESULTS 10/14/2023 12:4 1 PM TAFE TEACHER 10/14/2023 3:56 PM TAFE TEACHER Baldev Burton DO ECG ORDERA TIARA RADIOLOGY RESULTS documented in this encounter Visit [...] unspecified type Community acquired pneumonia, unspecified laterality documented in this encounter Admitting Diagnoses Diagnosis [...] exceed 4 grams/day. $Given 10/15/2023 7:36 PM TAFE TEACHER 650 mg $Given 10/14/2023 6:17 PM TAFE TEACHER 650 mg albuterol (PROVENTIL) neb solution 2.5 mg 2.5 mg (3 mL), Nebulization, EVERY 2 HOURS PRN, wheezing, shortness of breath, Starting on Sat10/14/23 at 1736 amLODIPine (NORVASC) tablet 5 mg 5 mg, Oral, AT BEDTIME, First dose on Sat10/14/23 at 2200, HOLD for SBP <110 $Given 10/14/2023 10:09 PM TAFE TEACHER 5 mg azithromycin (ZITHROMAX) 250 mg in sodium chloride 0.9 % 250 mL intermittent infusion Routine, 250 mg, Intravenous, EVERY 24 HOURS, First dose on Sat10/15/23 at 1400, For 4 doses, Schedule subsequent doses 24 hours from first dose. May switch to oral when taking PO and not in ICU., Indications: Community Acquired Pneumonia $New Bag 10/15/2023 3:04 PM TAFE TEACHER 250 mg azithromycin (ZITHROMAX) 500 mg vial to attach to NS 250 mL bag STAT, 500 mg, Intravenous, ONCE, On Sat10/14/23 at 1355, For 1 dose, Indications: Community Acquired Pneumonia $New Bag 10/14/2023 3:42 PM TAFE TEACHER 500 mg cefTRIAXone (ROCEPHIN) 2 g vial to attach to NS 100 ml bag for ADULTS or NS 50 ml bag for PEDS STAT, 2 g, Intravenous, ONCE, On Sat10/14/23 at 1355, For 1 dose, Indications: Community Acquired Pneumonia $New Bag 10/14/2023 2:40 PM TAFE TEACHER 2 g cefTRIAXone (ROCEPHIN) 2 g vial to attach [...] Acquired Pneumonia $New Bag 10/16/2023 2:13 PM TAFE TEACHER 2 g $New Bag 10/15/2023 1:01 PM TAFE TEACHER 2 g dextrose 50 % injection 25-50 [...] Sat10/14/23 at 2200 $Given 10/15/2023 9:31 PM TAFE TEACHER 100 mg $Given 10/14/2023 10:09 PM TAFE TEACHER 100 mg glucagon injection 1 mg 1 [...] of correction dose. $Given 10/15/2023 6:43 PM TAFE TEACHER 2 Units insulin aspart (NovoLOG) injection (RAPID [...] of correction dose. $Given 10/15/2023 9:31 PM TAFE TEACHER 1 Units $Given 10/14/2023 10:46 PM TAFE TEACHER 1 Units insulin glargine (LANTUS PEN) injection 30 Units 30 Units, Subcutaneous, AT BEDTIME, First dose on Sat10/14/23 at 2200 $Given 10/15/2023 9:31 PM [employer]AFE TE[employer]ER 30 Units $Given 10/14/2023 10:46 PM [employer]AFE TE[employer]ER 30 Units losartan (COZAAR) tablet 100 mg 100 mg, Oral, DAILY WITH SUPPER, First dose on Sat10/14/23 at 1800, HOLD for SBP <110 $Given 10/15/2023 6:06 PM [employer]AF[employer] TE[employer]ER 10 0 mg $Given 10/14/2023 6:17 PM [employer]AF[employer] TE[employer]ER 100 mg magnesium sulfate 2 g in 50 mL sterile water intermittent infusion 2 g, Intravenous, ONCE PRN, magnesium supplementation, Administer IF magnesium level is less than 2 mg/dL, Starting on Sat10/16/23 at 0500, For 1 dose, Infuse over 60 minutes., Cardiac Pre-procedure $New Bag 10/16/2023 8:03 AM [employer]AFE TE[employer]ER 2 g melatonin tablet 5 mg 5 mg, Oral, AT BEDTIME PRN, sleep, Starting on Sat10/15/23 at 1859 metoprolol succinate ER (TOPROL XL) 24 hr tablet 25 mg 25 mg, Oral, DAILY, First dose on Sat10/15/23 at 1200, DO NOT CRUSH. Tablet may be split in half along score line. $Given 10/15/2023 1:01 PM [employer]AFE TE[employer]ER 25 mg mirabegron (MYRBETRIQ) 24 hr tablet 50 mg 50 mg, Oral, DAILY, First dose on Sat10/14/23 at 1800, Do not chew, crush or split tablets. $Given 10/15/2023 6:06 PM [employer] 50 mg $Given 10/14/2023 6:17 PM TAFE TE[employer]ER 50 mg naloxone (NARCAN) injection 0.2 mg [...] Sat10/14/23 at 1912 $Given 10/14/2023 11:53 PM TAFE TEACHER 0.4 m g ondansetron (ZOFRAN ODT) ODT [...] go to Step 2 prochlorperazine (COMPAZINE). Irritant. potassium chloride ER (KLOR-CON M) CR tablet 20 mEq 20 mEq, Oral, ONCE PRN, potassium supplementation, Administer IF K+ level is 3.5 to 4.0 mmol/L with sip of water., Starting on Sat10/16/23 at 0500, For 1 dose, DO NOT CRUSH, Cardiac Pre-procedure $Given 10/16/2023 7:00 AM TAFE TE[employer]ER 20 mEq prochlorperazine (COMPAZINE) injection 5 mg 5 mg, [...] Indications: Afib-non valvular $Given 10/15/2023 6:06 PM TAFE TEACHER 20 mg $Given 10/14/2023 7:54 PM TAFE TEACHER 20 mg senna-docusate (SENOKOT-S/PERICOLACE) 8.6-50 MG per [...] for loose stools. $Given 10/15/2023 7:40 AM TAFE TEACHER 1 tablet $Given 10/14/2023 7:54 PM TAFE TEACHER 1 tablet senna-docusate (SENOKOT-S/PERICOLACE) 8.6-50 MG per [...] IV dormant line. Positive 10/16/2023 9:16 AM TAFE TEACHER 3 mLs $Given 10/15/2023 6:43 PM TAFE TEACHER 3 mLs $Given 10/15/2023 11:16 AM TAFE TEACHER 3 mLs sodium chloride (PF) 0.9% PF flush 3 mL 3 mL, Intravenous, EVERY 8 HOURS, First dose on Sat10/16/23 at 0730, And Q1H PRN, to lock peripheral IV dormant line., Cardiac Pre-procedure Positive 10/16/2023 7:19 AM TAFE TEACHER 3 mLs sodium chloride 0.9% BOLUS 1,000 mL Intravenous, 1,000 mL, ONCE, at 1,000 mL/hr, Administer over 1 Hours, On Sat10/14/23 at 1520, For 1 dose $New Bag 10/14/2023 3:38 PM TAFE TEACHER 1,000 mLs 1000 mL/hr documented in this encounter Active and Recently Administered Medications Times are shown in TAFE TE[employer]. Scheduled Medication Order 10/14/2023 10/15/2023 10/16/2023 amLODIPine [...] Kala Chávez RN)1521 (Stopped - Provider: Kala Chávez, NOBLE) cefTRIAXone (ROCEPHIN) 2 g vial to attach [...] Sanchez RN) 2131 ($Given - Provider: Lauryn Sanchez, RN) insulin aspart (NovoLOG) injection (RAPID ACTING) [...] 2246 ($Given - Provider: Lauryn Sanchez RN) 2131 ($Given - Provider: Lauryn Sanchez RN) insulin glargine (LANTUS PEN) injection 30 Units 30 Units, Subcutaneous, AT BEDTIME, First dose on Sat10/14/23 at 2200 2246 ($Given - Provider: Lauryn Sanchez RN) 2131 ($Given - Provider: Lauryn Sanchez RN) losartan [...] Do not chew, crush or split tablets. 1817 ($Given - Provider: Heather Parada RN) 1806 ($Given - Provider: Heather Parada RN) 1800 (Canceled Entry - Provider: Orders Generic Provider - Comment: Automatically canceled at discontinue of medication order) rivaroxaban ANTICOAGULANT (XARELTO) tablet 20 mg 20 mg, Oral, DAILY WITH SUPPER, First dose on Sat10/14/23 at 1900, Indications: Afib-non valvular 1953 ($Given - Provider: Lauryn Sanchez RN) 1806 ($Given - Provider: Heather Parada [...] RN) 0740 ($Given - Provider: Heather Parada RN)193 (Not Given - Provider: Lauryn Sanchez RN - Reason: Patient/family refused) 0847 (Not Given - Provider: Katelyn Nagel RN - Reason: Transfer to a procedural area) senna-docusate (SENOKOT-S/PERICOLACE) 8.6-50 MG per tablet 2 tablet(Linked Group 1) 2 tablet, Oral, 2 TIMES DAILY, First dose on Sat10/14/23 at 2000, Hold for loose stools. 1953 (See Alternative - Provider: Lauryn Sanchez RN) 0740 (See Alternative - Provider: Heather Parada RN)193 (See Alternative - Provider: Lauryn Sanchez RN) 0847 (See Alternative - Provider: Katelyn Nagel, NOBLE) sodium chloride (PF) 0.9% PF flush 3 mL 3 mL, Intracatheter, EVERY 8 HOURS, First dose on Sat10/14/23 at 1800, And Q1H PRN, to lock peripheral IV dormant line. 1917 ($Given - Provider: Heather Parada RN) 0122 (Not Given - Provider: Lauryn Sanchez RN - Reason: Patient sleeping)1116 ($Given - Provider: Heather Parada RN)1843 ($Given - Provider: Heather Parada RN) 0154 (Canceled Entry - Provider: Lauryn Sanchez RN)0916 (Positive - Provider: Katelyn Nagel, NOBLE)1800 (Canceled Entry - Provider: Orders Generic Provider - Comment: Automatically canceled at discontinue of medication order) sodium chloride (PF) 0.9% PF flush 3 mL (CANCELED) 3 mL, Intravenous, EVERY 8 HOURS, First dose on Sat10/16/23 at 0730, And Q1H PRN, to lock peripheral IV dormant line., Cardiac Pre-procedure 0719 (Positive - Provider: Katelyn Nagel RN) sodium chloride 0.9% BOLUS 1,000 mL (COMPLETED) Intravenous, 1,000 mL, ONCE, at 1,000 mL/hr, Administer over 1 Hours, On Sat10/14/23 at 1520, For 1 dose 1538 ($New Bag - Provider: Cyndee Miller, RN)1643 (Stopped - Provider: Cyndee Miller RN) [...] vomiting, Administer over 2-5 Minutes, Starting on 10/14/23 at 1736, Give IF patient unable to [...] stools. documented in this encounter Care Teams Planer Hand Relationship Specialty Start Date End Date Merrill Mejia MD [facility] [address] [place] [address] PCP - General Family Medicine 10/10/23 10/24/23 Nicanor Patel MD [address] [place] [id number] Cardiovascular Disease 09/16/23 Nicanor Patel MD [address] [place] [address] Cardiovascular Disease 09/16/23 Nicanor Patel MD [address] [place] [id number] Assigned Heart and Vascular Provider 09/26/23 documented as of this encounter
--- OUTSIDE RECORDS SUMMARY | 2024-01-08 07:16 | XMS_ITS | Encounter Summary ---
Author Name Unknown Organization [place] Address [facility] [place] [address] Care Team Providers Care Trailers And Motor [employer] Salesperson Name Role Phone Nicanor Patel MD Unavailable Nicanor Patel MD Unavailable Nicanor Patel MD Unavailable Merrill Mejia MD Primary Care Provider [phone] Reason for Visit * Reason Comments Irregular [...] laterality Episode of confusion Short Stay [address] [place] [address] Referral ID Status Reason Start Date Expiration Date Visits Re quested Visits Authorized [id number] 1 1 Encounter Details Date Type Department Care Team (Late st Contact Info) Description 10/15/2023 10:30 AM CASING SPLITTER - 10/15/2023 10:45 AM CASING SPLITTER [facility] PeriOP Services [address] [facility] [place] [address] GENERIC ANESTHESIA PROVIDER cardioversion Social History Tobacco Use Types Packs/Day Years Used Date Smoking Tobacco: Never Alcohol Use Standard Drinks/Week Comments Yes 0 (1 standard drink = 0.6 oz pur e alcohol) Adolescent Education Answer Date Record ed Getting School Help Needed Not on file 06/09 Sex and Gender Information Value Date Recorded Sex Assigned at Male 09/28/2023 2:19 PM CASING SPLITTER Gender Identity Male 09/28/2023 2:19 PM CASING SPLITTER Sexual Orientation Straight 09/28/2023 2: 19 PM CASING SPLITTER documented as of this encounter Last Filed Vital Signs Vital Sign Reading Time Taken Comments Blood Pressure 115/70 10/15/2023 7:34 AM CASING SPLITTER Pulse 119 10/15/2023 7:34 AM CASING SPLITTER Temperature 36.6 ??C (97.9 ??F) 10/15/2023 7:34 AM CS T Respiratory Rate 20 10/15/2023 7:34 AM CASING SPLITTER Oxygen Saturation 94% 10/15/2023 7:34 AM CASING SPLITTER Inhaled Oxygen Concentration - - Weight 96.3 kg (212 lb 3.2 oz) 10/15/2023 6:57 A M CASING SPLITTER Height 185.4 cm (6' 1) 10/14/2023 5:59 PM CASING SPLITTER Body Mass Index 27.82 10/14/2023 5:59 PM CASING SPLITTER documented in this encounter Discharge Summaries * Gail Post MD - 10/16/2023 1:05 PM CST Images from the original note were not included. [facility] Discharge Summary Hospitalist Date of Admission: 10/14/2023 [...] below, scheduled for outpatient cardioversion 10/15. Continue GENERAL STUDIES PROGRAM CHAIR medications which include Xarelto, losartan and metoprolol. [...] manage insulin with frequent episodes of hypoglycemia. *GENERAL STUDIES PROGRAM CHAIR Regimen: Takes insulin Glargine 80-90 units at bed time, despite PCP recommendation that he takes 50 units. Last HbA1c 8.7% patient was on hypoglycemia protocol, was continued insulin here, metformin is on hold, continued on CHO diet there is concern whether he can manage his insulin, will arrange outpatient endocrine follow-up. Coronary artery disease Benign essential hypertension GENERAL STUDIES PROGRAM CHAIR Regimen: Atenolol, losartan, xarelto and rosuvastatin EKG: Atrial fibrillation with rapid ventricular response with left axis deviation Possible Anterior infarct , age undetermined. Last ECHO: 10/01/23 EF 60-65%. Last stress test: 08/21/23 Negative for inducible myocardial ischemia or infarction. Follows with cardiology at [facility] Dr. Patel. Continue GENERAL STUDIES PROGRAM CHAIR losartan, atenolol stopped. His GENERAL STUDIES PROGRAM CHAIR statin is on hold, continue holding that [...] triglycerides 65, LDL 27, HDL 26. - GENERAL STUDIES PROGRAM CHAIR rosuvastatin on hold, consider restarting at a [...] Lab Test 10/16/23 1206 10/16/23 0729 10/16/23 0610/15/23 0739 10/15/23 0715 10/14/23 1742 10/14/23 1253 [...] appears clear. ELO DIETRICH MD SYSTEM ID: [id number] XR Chest 2 Views Narrative CHEST TWO [...] Narrative Carter Ellis MD 10/16/2023 9:05 AM [facility] Procedure: EP Cardioversion External Date/Time: [...] the procedure a time out was called [place] Protocol: the Joint Commission [place] Protocol was followed Preparation: Patient was prepped [...] without bradycardia or pauses. No apparent complications. NG SPLITTER documented in this encounter Medications at Time [...] has all belongings. 48hr monitor in place. NG SPLITTER * Sarah Sheth PT - 10/16/2023 12:23 [...] (include personal factors and/or [facility] 83-year-old male, admitted on 10/14/2023, presented with [...] Commands (Cognition) WFL;delayed response/completion;increased processing time needed ([place]) Pain Assessment Patient Currently in Pain No [...] Evaluation Time PT Eval, Low Complexity Minutes (00912) 12 Physical Therapy Goals PT Frequency One time eval and treatment only PT Predicted Duration/Target Date for Goal Attainment 10/16/23 PT Goals Transfers;Gait;Stairs PT: Transfers Modified independent;Sit to/from stand PT: Gait Supervision/stand-by assist;150 feet PT: Stairs Supervision/stand-by assist;Greater than 10 stairs (Single rail) Interventions Interventions Quick Adds Therapeutic Activity;Gait Training Therapeutic Activity Therapeutic Activities: dynamic activities to improve functional performance Minutes (42737) 10 Symptoms Noted During/After Treatment Fatigue Treatment Detail/Skilled Intervention Patient greeted seated on EOB. present and attentive to patient's needs. Patient very [place] but following commands appropriately. Patient agreeable to [...] with RN. Gait Training Gait Training Minutes (89218) 24 Symptoms Noted During/After Treatment (Gait Training) [...] rest neededbefore ascending stairs. Patient alternates between [id number] and step-to pattern when ascending stairs, again [...] discharge home with assist from . Recommend PT to address remaining strength, balance, and endurance deficits. PT Brief overview of current status SBA Total Session Time Timed Code Treatment Minutes 34 Total Session Time (sum of timed and untimed services) 46 NG SPLITTER * Shashank Arellano, RN - 10/16/2023 9:08 AM CST Care Suites Post Procedure Note Patient Information Name: Ilan Alaniz Age: [age] year old Post Procedure Bedside report taken by receiving RN NG SPLITTER * Merlyn Lyon CNP - 10/16/2023 7:41 AM CST [facility] Cardiology Progress Note Date of Service: 10/16/2023 Primary Fruit Tester: Dr. Patel Staff Fruit Tester: Dr. Malik Assessment & Plan Ilan Alaniz [...] Rate control: Toprol XL 25 mg daily [GENERAL STUDIES PROGRAM CHAIR atenolol 50 mg daily] S/p successful DCCV [...] Continue Toprol XL 25 mg daily, stop GENERAL STUDIES PROGRAM CHAIR atenolol. Continue Xarelto 20 mg daily for [...] encounter: 95.7 kg (210 lb 14.4 oz). NG SPLITTER Associated attestation - Tian Malik MD - 10/16/2023 2:41 PM CASING SPLITTER Physician Attestation I saw and evaluated Ilan Alaniz as part of a shared MICROBIOLOGY TEACHER/PA visit. I personally reviewed the vital signs, [...] - BMP - CMP Tian Malik MD, Date of Service (when I saw the [...] senna x1. Recommend senna 2 tab for maintenance technician 3rd shift. Skin Concerns: Bruise R thigh Drains/Devices: PIV SL Patient Stated Goal for Today: prep for procedures NG SPLITTER * Liss Pride RN - 10/15/2023 4:39 PM CST [facility] Patient is currently receiving services with [facility]. The patient is currently receiving RN services. Patient's special education case manager and home health team have been notified that patient is under inpatient status [facility] Liaison will continue to follow patient during stay. Please provide orders to resume home care at time of discharge if appropriate. NG SPLITTER * Heather Parada RN - 10/15/2023 2:00 [...] met and patient is ready for discharge. NG SPLITTER * Bacilio Steele MD - 10/15/2023 10:40 AM CST [facility] Medicine Progress Note - Hospitalist Service Date [...] then admitted to inpatient. - Telemetry. - GENERAL STUDIES PROGRAM CHAIR Atenolol switched to metoprolol per cardiology. - Continue GENERAL STUDIES PROGRAM CHAIR Xarelto. - PRN IV metoprolol for sustained [...] - Telemetry. - Xarelto, metoprolol, losartan. - GENERAL STUDIES PROGRAM CHAIR rosuvastatin on hold for now as noted [...] manage insulin with frequent episodes of hypoglycemia. *GENERAL STUDIES PROGRAM CHAIR Regimen: Takes insulin Glargine 80-90 units at bed time, despite PCP recommendation that he takes 50 units. Last HbA1c 8.7% - Hypoglycemia protocol. - Preprandial and HS fingerstick checks or Q 4 hours while NPO. - Hold GENERAL STUDIES PROGRAM CHAIR metformin. - Medium dose sliding scale insulin ordered. - GENERAL STUDIES PROGRAM CHAIR lantus decreased to 30 units at bedtime. [...] insulin. Coronary artery disease Benign essential hypertension GENERAL STUDIES PROGRAM CHAIR Regimen: Atenolol, losartan, xarelto and rosuvastatin EKG: Atrial fibrillation with rapid ventricular response with left axis deviation Possible Anterior infarct , age undetermined. Last ECHO: 10/01/23 EF 60-65%. Last stress test: 08/21/23 Negative for inducible myocardial ischemia or infarction. Follows with cardiology at [facility] Dr. Patel. - Telemetry. - Continue GENERAL STUDIES PROGRAM CHAIR Losartan and Atenolol with hold parameters. - HOLD GENERAL STUDIES PROGRAM CHAIR Crestor for now, consider restarting at a lower dose upon discharge. - Continue GENERAL STUDIES PROGRAM CHAIR nitroglycerin SL PRN 0.4 mg SL tablet [...] triglycerides 65, LDL 27, HDL 26. - GENERAL STUDIES PROGRAM CHAIR rosuvastatin on hold, consider restarting at a [...] following. Cardioversion. Bacilio Steele MD Hospitalist Service [facility] Securely message with [employer] (more info) Text page via [facility] Paging/Directory Interval History Ilan Alaniz was [...] No acute displaced fracture. PRECIOUS YOON MD NG SPLITTER * Heather Parada RN - 10/15/2023 10:00 [...] met and patient is ready for discharge. NG SPLITTER * Lauryn Sanchez RN - 10/15/2023 6:00 [...] met and patient is ready for discharge. NG SPLITTER * Lauryn Sanchez RN - 10/15/2023 2:00 [...] met and patient is ready for discharge. NG SPLITTER * Lauryn Sanchez RN - 10/14/2023 10:00 [...] met and patient is ready for discharge. NG SPLITTER * Heather Parada RN - 10/14/2023 6:47 [...] Patient Stated Goal for Today: pain management. NG SPLITTER * Heather Parada RN - 10/14/2023 5:14 PM CST RECEIVING UNIT ED HANDOFF REVIEW ED Nurse Handoff Report was reviewed by: Heather Parada RN on October 14, 2023 at 5:14 PM NG SPLITTER documented in this encounter H&P Notes * Dulce Fisher PA-C - 10/14/2023 1:42 PM CST [facility] History and Physical - Hospitalist Service Date [...] Nicanor Patel 09/23/23. - Telemetry - Continue GENERAL STUDIES PROGRAM CHAIR Atenolol - Continue GENERAL STUDIES PROGRAM CHAIR anticoagulation, with Xerelto - PRN IV metoprolol for sustained heart rate >120 - Monitor K+/Mg++, replace PRN - Cardiology consult with plan for cardioversion. 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 Last HbA1c 8.7% - Hypoglycemia protocol - Preprandial and HS fingerstick checks or Q 4 hours while NPO - Hold GENERAL STUDIES PROGRAM CHAIR oral antiglycemics (Metformin) - Sliding scale insulin [...] 201* Coronary artery disease Benign essential hypertension GENERAL STUDIES PROGRAM CHAIR Regimen: Atenolol, losartan, xarelto and rosuvastatin EKG: Atrial fibrillation with rapid ventricular response with left axis deviation Possible Anterior infarct , age undetermined Last ECHO: 10/01/23 EF 60-65% Last stress test: 08/21/23 Negative for inducible myocardial ischemia or infarction. Follows with cardiology at [facility] Dr. Patel - Telemetry-Yes - Continue GENERAL STUDIES PROGRAM CHAIR Losartan, Atenolol with hold parameters - HOLD GENERAL STUDIES PROGRAM CHAIR Crestor - Continue GENERAL STUDIES PROGRAM CHAIR nitroglycerin SL PRN 0.4 mg SL tablet q5min times three doses for chest pain - Hold GENERAL STUDIES PROGRAM CHAIR losartan for SBP less than 110 and Atenolol for HR less than 60 - PRN IV hydralazine available for SBP >180 - Monitor BP trend and need for medication adjustments Cognitive Dysfunction, progressive *Inability to manage and administer medications in a safe manner -OT for formal cognitive evaluation Dyslipidemia Baseline lipid panel unavailable - Continue GENERAL STUDIES PROGRAM CHAIR Crestor Chronic kidney disease, stage 3A Baseline [...] Patient, and Patient's Family. Dominic Mukherjee APRN, [employer]UL[employer]OWER Dulce Fisher PA-C Hospitalist Service [facility] Securely message with [employer] (more info) Text page via [facility] Paging/Directory Chief Complaint Weakness and persistent chest pain. History is obtained from the patient and the patients family. History of Present Illness Ilan Alanzi is a 83 year old male with [...] was also seen in the ED at [facility] on 10/01 with symptoms similar to that [...] History Past Surgical History: Procedure Laterality Date [facility] NONSPECIFIC PROCEDURE 2004 Cholecystectomy [facility] NONSPECIFIC PROCEDURE Appendectomy [facility] NONSPECIFIC PROCEDURE Lysis of adhesions for bowel [...] appears clear. ELO DIETRICH MD SYSTEM ID: [id number] NG SPLITTER Associated attestation - Michelle Eckert MD - 10/15/2023 3:12 PM CASING SPLITTER Physician Attestation I have reviewed and discussed [...] 9:05 AM CSTAssociated Order(s): EP Cardioversion External [facility] Procedure: EP Cardioversion External Date/Time: [...] the procedure a time out was called [place] Protocol: the Joint Commission [place] Protocol was followed Preparation: Patient was prepped [...] without bradycardia or pauses. No apparent complications. NG SPLITTER documented in this encounter Consult Notes * [...] comments) Handoff Referral Completed: Yes Additional Information: Cork Insulator checked in with patient and spouse at the bedside. Patient is cleared for discharge to home with resumption of homecare RN and PT should be added on. Spouse noted that [facility] has the patient scheduled for this Thursday 10/19. Cork Insulator to send a message to the homecare Liaison regarding PT being added. No further needs identified. Rachel Palomares RN, BSN, ACM Care Transitions Specialist [facility] Care Transitions Specialist [phone] [place] [address] [email or web address] Office: [phone] [facility] NG SPLITTER * Jane Norton PA-C - 10/16/2023 11:02 AM CSTAssociated Order(s): GASTROENTEROLOGY IP CONSULT [facility] Gastroenterology Consultation Ilan Alaniz [address] [place] [address] 83 year old male Admission Date/Time: 10/14/2023 [...] avoid alcohol [facility] Office: [phone] (Dr. Dinh) (Jane Norton PA-C) NG SPLITTER Associated attestation - Sanya Dinh MD - 10/28/2023 7:30 AM CASING SPLITTER History and physical exam was done independently.Patient's [...] Sanya Dinh MD FACP TESFAYE OTOOLE * Zeke Crainndra, CARE ASST - 10/15/2023 4:23 PM CSTAssociated Order(s): CARE MANAGEMENT / SOCIAL WORK IP CONSULT Care Management Initial Consult General Information Assessment completed with: (pt's ), Type of CM/SW Visit: Initial Assessment Primary Care Provider verified and updated as needed: Readmission within the last 30 days: unable to assess Reason for Consult: discharge planning Advance Care Planning: Communication Assessment Patient's communication style: spoken language (Kenyan or Bilingual) Hearing Difficulty or Deaf: yes [...] care services: (Pt is signed up for [facility] ; has done intake) Community Resources: None [...] Chemical Dependency Status: Values/Beliefs: Spiritual, Cultural Beliefs, Mormonism Practices, Values that affect care: Additional Information: Pt is an 83 year old male who was admitted to hospital with concerns of decreased energy and persistent chest pain. Cork Insulator met with pt at bedside. Introduced self and role. Pt is asleep. Cork Insulator spoke with pt's .Introduced self and role. [...] had an intake this past Saturday with [facility] pt's for [facility]. She states they would likely be interested in PT/OT being added on if it were to be recommended by therapy. Pt's aware that care management is awaiting therapy recommendations. Cork Insulator informed her if theyrecommend anything greater than home care then care management will stop by to discuss with pt and her. Pt's states no further questions or concerns at this time. SHELBI Pineda Social Work [facility] NG SPLITTER * Tian Malik MD - 10/15/2023 11:18 AM CST [facility] Cardiology Consultation Date of Admission: 10/14/2023 Assessment [...] he continues to have chest pain following episcopalian of sinus rhythm, will consider coronary angiography. 3. Community-acquired pneumonia 4. Diabetes with recurrent hypoglycemia Tian Malik MD, [facility] High complexity Tian Malik MD, , [...] History Past Surgical History: Procedure Laterality Date [facility] NONSPECIFIC PROCEDURE 2004 Cholecystectomy [facility] NONSPECIFIC PROCEDURE Appendectomy [facility] NONSPECIFIC PROCEDURE Lysis of adhesions for bowel [...] HDL, LDL, TRIG, CHOLHDLRATIO in the last [id number] hours. Recent Labs Lab 10/15/23 0715 10/14/23 [...] appears clear. ELO DIETRICH MD SYSTEM ID: [id number] XR Chest 2 Views Narrative CHEST TWO [...] encounter: 96.3 kg (212 lb 3.2 oz). NG SPLITTER documented in this encounter ED Notes * Cyndee Miller RN - 10/14/2023 5:07 PM CST [facility] ED Nurse Handoff Report ED Chief [...] Current: Stand with Assist Patient's Preferred language: Kenyan Utilization Management Manager Needed?: No Isolation: None Infection: Not Applicable [...] at bedside OBS brochure/video discussed/provided to patient/family: [place] of person given brochure if not patient: Relationship to patient: For the majority of the shift this patient's behavior was Green. Behavioral interventions performed were . ED NURSE PHONE NUMBER: *[phone] NG SPLITTER * David Ahn RN - 10/14/2023 12:40 [...] WDL WDL Cognitive/Neuro/Behavioral WDL Cognitive/Neuro/Behavioral WDL WDL NG SPLITTER * Baldev Burton DO - 10/14/2023 12:38 PM CST PIT/Triage Evaluation Patient presented with chest pain and shortness of breath. The patient states that on 08/16/23, he began experiencing a tremendous central chest pain that radiated to his left chest and shoulder while walking up some stairs. He notes he was seen on the same day at [facility] and was given oxycodone which increased his [...] is undergoing a cardiac ablation tomorrow phyllis linda. He is on Xarelto with no missed doses. He is seeing Dr. Patel as his education administrative assistant. Exam is notable for: General: Patient in [...] the hospital. Baldev Burton DO 10/14/23 1249 NG SPLITTER * Ilan Alves MD - 10/14/2023 12:22 [...] this year where he was seen at [facility] for A-fib. Allergies: Animal Dander No Known [...] History: Past Surgical History: Procedure Laterality Date [facility] NONSPECIFIC PROCEDURE 2004 Cholecystectomy [facility] NONSPECIFIC PROCEDURE Appendectomy [facility] NONSPECIFIC PROCEDURE Lysis of adhesions for bowel [...] by me General: Pt seen on hospital [facility], pleasant, cooperative, and alert to conversation. [...] Blood Pressure Ventricular Rate 103 Atrial Rate MA Interval QRS Duration 86 QT 290 QTc 379 P [place] R AXIS -40 T [place] 100 Interpretation ECG Atrial fibrillation with rapid [...] Ilan Alves* Ilan Alves MD 10/14/23 1717 NG SPLITTER documented in this encounter Miscellaneous Notes * Result Encounter Note - Triston Knight PA-C - 10/16/2023 4:33 PM CASING SPLITTER Abnormal Zio results forwarded to Jean Claude Encarnacion, Cardiovascular Diseases at [facility] (pt hasappt 10/23). NG SPLITTER * Plan of Care - Wen Arciniega OTR - 10/16/2023 2:51 PM CST Occupational Therapy: Orders received. Chart reviewed and discussed with care team.? Occupational Therapy not indicated due to per PT, pt mobilizing well and ind in bathroom. Discharging home and no acute IP OT needs identified.? Defer discharge recommendations to care team.? Will complete orders. NG SPLITTER * Plan of Care - Sarah Sheth, PT - 10/16/2023 12:23 PM CST Physical Therapy Discharge Summary Reason for therapy discharge: Discharged to home with home therapy. Progress towards therapy goal(s). See goals on Care Plan in [facility] electronic health record for goal details. Goals [...] his ability to participate in therapy session. NG SPLITTER * Plan of Care - Katelyn Nagel [...] Patient Stated Goal for Today: Go home NG SPLITTER * Pre-Procedure - Carter Ellis MD - [...] data, medications, and the plan for sedation NG SPLITTER * Plan of Care - Lauryn Sanchez [...] Stated Goal for Today: prep for procedures NG SPLITTER * Utilization Review - Roberto Pacheco MD - 10/15/2023 12:19 PM CASING SPLITTER Admission Status; Secondary Review Determination Under the [...] section 70.4. Sincerely, ROBERTO PACHECO MD System Collar FuserSenior Security Analyst [facility]. NG SPLITTER * Plan of Care - Lauryn Sanchez [...] Patient Stated Goal for Today: pain management. NG SPLITTER * Pharmacy-Admission Medication History - Bridgette Arciniega, [facility] - 10/14/2023 2:27 PM CST Pharmacist Admission [...] and typed health system med list from [facility]. -atenolol: spouse verified new atenolol has been [...] not taking, finds ineffective. Changes made to GENERAL STUDIES PROGRAM CHAIR medication list: Added: amlodipine, oxycodone, multivitamin, magnesium, [...] Medication History Completed By: Bridgette Arciniega [facility] 10/14/2023 2:27 PM GENERAL STUDIES PROGRAM CHAIR Med List Medication Sig Note Last Dose [...] mcg by mouth daily 10/14/2023 at AM NG SPLITTER documented in this encounter Plan of Treatment Upcoming Encounters Date Type Department Care Team (Late st Contact Info) Description 05/14/2024 12:30 PM CDT Office Visit [facility] [address] [place] [address] Gail Post MD [address] [place] [address] Anushka Carrasquillo MD [address] [place] [address] Scheduled Referrals Name Type Priority Associated Diagnoses Orde r Schedule Adult Endocrinology Oil Expeller Operator Referral Referral Routine: Next available opening Type [...] AND PROVIDER INTERPRETATION Routine 10/16/2023 7:05 PM CASING SPLITTER GLUCOSE BY METER Routine 10/16/2023 12:0 6 PM CASING SPLITTER HEPATITIS A ANTIBODY IGM Routine 10/16/2023 10:22 AM CASING SPLITTER EKG 12-LEAD, TRACING ONLY Routine 10/16/2023 10:04 AM CASING SPLITTER US ABDOMEN LIMITED Routine 10/16/2023 9: 36 AM CASING SPLITTER CARDIOVERSION EXTERNAL Routine 8:35 AM CASING SPLITTER GLUCOSE BY METER Routine 10/16/2023 7:29 AM CASING SPLITTER EKG 12-LEAD, TRACING ONLY STAT 10/16/2023 7:11 AM CASING SPLITTER INR STAT 10/16/2023 6:08 AM CASING SPLITTER MAGNESIUM STAT 10/16/2023 6:08 AM CASING SPLITTER HEPATITIS C ANTIBODY Add-On 10/16/2023 6:08 AM CASING SPLITTER HEPATITIS B SURFACE ANTIGEN Add-On 10/16/2023 6:08 AM CASING SPLITTER COMPREHENSIVE METABOLIC PANEL STAT 10/16/2023 6:08 AM CASING SPLITTER CBC WITH PLATELETS Routine 10/16/2023 6: 08 AM CASING SPLITTER GLUCOSE BY METER Routine 10/16/2023 1:10 AM CASING SPLITTER GLUCOSE BY METER Routine 10/15/2023 9:26 PM CASING SPLITTER GLUCOSE BY METER Routine 10/15/2023 5:29 PM CASING SPLITTER GLUCOSE BY METER Routine 10/15/2023 12:0 1 PM CASING SPLITTER XR CHEST 2 VIEWS Routine 10/15/2023 8:09 AM CASING SPLITTER GLUCOSE BY METER Routine 10/15/2023 7:39 AM CASING SPLITTER TROPONIN T, HIGH SENSITIVITY Routine 10/15/2023 7:15 AM CASING SPLITTER LIPID REFLEX TO DIRECT LDL PANEL Routine 10/15/2023 7:15 AM CASING SPLITTER COMPREHENSIVE METABOLIC PANEL Routine 10/15/2023 7:15 AM CASING SPLITTER CBC WITH PLATELETS Routine 10/15/2023 7: 15 AM CASING SPLITTER GLUCOSE BY METER Routine 10/15/2023 2:13 AM CASING SPLITTER GLUCOSE BY METER Routine 10/14/2023 10:1 1 PM CASING SPLITTER LACTIC ACID WHOLE BLOOD STAT 10/14/19 6:53 PM CASING SPLITTER GLUCOSE BY METER Routine 10/14/2023 5:42 PM CASING SPLITTER INFLUENZA A/B, RSV, & SARS-COV2 PCR STAT 10/14/2023 4:40 PM CASING SPLITTER TROPONIN T, HIGH SENSITIVITY STAT 10/14/2023 2:57 PM CASING SPLITTER LACTIC ACID WHOLE BLOOD STAT 10/14/19 2:57 PM CASING SPLITTER BLOOD CULTURE STAT 10/14/2023 2:28 PM CASING SPLITTER BLOOD CULTURE STAT 10/14/2023 2:20 PM CASING SPLITTER XR CHEST 2 VIEWS STAT 10/14/2023 1:12 PM CASING SPLITTER EXTRA TUBE STAT 10/14/2023 12:53 PM CASING SPLITTER EXTRA BLUE TOP TUBE STAT 10/14/2023 1 2:53 PM CASING SPLITTER CBC WITH PLATELETS AND DIFFERENTIAL STAT 10/14/2023 12:53 PM CASING SPLITTER TROPONIN T, HIGH SENSITIVITY STAT 10/14/2023 12:53 PM CASING SPLITTER PROCALCITONIN Add-On 10/14/2023 12:53 PM CASING SPLITTER CBC WITH PLATELETS & DIFFERENTIAL STAT 10/14/2023 12:53 PM CASING SPLITTER MAGNESIUM Add-On 10/14/2023 12:53 PM CASING SPLITTER LIPASE STAT 10/14/2023 12:53 PM CASING SPLITTER HEMOGLOBIN A1C Add-On 10/14/2023 12:53 PM CASING SPLITTER COMPREHENSIVE METABOLIC PANEL STAT 10/14/2023 12:53 PM CASING SPLITTER EKG 12-LEAD, TRACING ONLY STAT 10/14/2023 12:41 PM CASING SPLITTER documented in this encounter Results * HOLTER MONITOR 48 HOUR APPLICATION SCAN ANALYSIS AND PROVIDER INTERPRETATION (10/16/2023 7:05 PM CASING SPLITTER) Anatomical Region Laterality Modality Other 10/16/2023 4:17 PM CASING SPLITTER 10/21/2023 6:00 PM CASING SPLITTER Narrative 10/21/2023 6:00 PM CASING SPLITTER 1. Ilan De León was monitored for 48 hours. Quality of the tracing was good. Predominant rhythm was Atrial fibrillation ??(61% of the recording). Average HR was 112 bpm, maximum HR was 163 bpm at 12:42 PM (Day 1), minimum HR was 74 bpm at 6:18 AM ??(Day 1). MA interval measured 0.17 seconds, QRS duration 0.09 seconds, QT interval 0.297-0.336 seconds. There were zero pauses over 2.0 seconds. 2. There were 7,774 ventricular ectopic beats (3% [place]), 7,187 of these were isolated PVCs. There were 269 couplets and 15 ??triplets. There was one 4 beat ventricular run with a rate of 176 bpm at 6:15 PM (Day 2). 3. There were 8,313 supraventricular ectopic beats (3% [place]), 6,963 of these were isolated PACs. There [...] were noted. 10/19/2023 Confirmed by NICANOR PATEL ([id number]) on 10/21/2023 6:00:23 PM Procedure Note Nicanor Patel MD - 10/21/2023 1. Ilan De León was monitored for 48 hours. Quality of the tracingwas good. Predominant rhythm was Atrial fibrillation (61% of therecording). Average HR was 112 bpm, maximum HR was 163 bpm at 12:42 PM (Day 1),minimum HR was 74 bpm at 6:18 AM (Day 1). MA interval measured 0.17seconds, QRS duration 0.09 seconds, QT interval 0.297-0.336 seconds. There were zero pauses over 2.0 seconds. 2. There were 7,774 ventricular ectopic beats (3% [place]), 7,187 of thesewere isolated PVCs. There were 269 couplets and 15 triplets. There wasone 4 beat ventricular run with a rate of 176 bpm at 6:15 PM (Day 2). 3. There were 8,313 supraventricular ectopic beats (3% [place]), 6,963 ofthese were isolated PACs. There were [...] were noted. 10/19/2023 Confirmed by NICANOR PATEL ([id number]) on 10/21/2023 6:00:23 PM Merlyn Lyon [facility] CARDIAC SERVICES ORDERABLES * (ABNORMAL) Glucose by meter (10/16/2023 12:06 PM CASING SPLITTER) [facility] GLUCOSE BY METER POCT 154(H) 70 - 99 mg/dL 10/16/2023 12:16 PM CASING SPLITTER LABORATORY POC Blood, Capillary BLOOD SPECIMEN / Unknown 10/16/2023 12:06 PM CASING SPLITTER 10/16/2023 12:16 PM CASING SPLITTER Michelle [facility] POCT LABORATORY POC [facility] Lab [address] floor, [address] [place] [address], [facility] [phone] * Hepatitis A antibody IgM (10/16/2023 10:22 AM CASING SPLITTER) Hepatitis A Antibody IgM Nonreactive Nonreactive 10/16/2023 3:37 PM CASING SPLITTER [facility] Comment:Nonreactive results indicate either inadequate or delayed anti-HAV IgM response after known exposure to HAV or absence of acute or recent hepatitis A. Blood STRUCTURE OF RIGHT UPPER LIMB / Unknown Venipuncture / Unknown 10/16/2023 10:22 AM CASING SPLITTER 10/16/2023 10:27 AM CASING SPLITTER Gail Post MD LAB - BLOOD ORDERABL ES [facility] Core Lab [address] [facility] Building, [address] [address], [facility] [phone] * EKG 12-lead, tracing only (10/16/2023 10:04 AM CASING SPLITTER) Systolic Blood Pressure mmHg RADIOLOGY RESULTS Diastolic Blood Pressure mmHg RADIOLOGY RESULTS Ventricular Rate 91 BPM RAD IOLOGY RESULTS Atrial Rate 91 BPM RADIOLOG Y RESULTS MA Interval 182 ms RADIOLOG Y RESULTS QRS Duration 80 ms RADIOLO GY RESULTS QT 330 ms RADIOLOGY RESULTS QTc 405 ms RADIOLOGY RESULTS P [place] 74 degrees RADIOLOGY RESULTS R AXIS 19 degrees RADIOLOGY RESULTS T [place] 213 degrees RADIOLOGY RESULTS Interpretation ECG Sinus rhythm with occasional Premature ventricular complexes and Premature atrial complexes Cannot rule out Anterior infarct , age undetermined Abnormal ECG When compared with ECG of 16-OCT-2023 07:11, (unconfirmed) Sinus rhythm has replaced Atrial fibrillation Confirmed by MD ISAAC, JULIEN ([id number]), website/blog editor Cole Pool ([id number]) on 10/18/2023 7:58:52 AM RADIOLOGY RESULTS 10/16/2023 10:0 4 AM CASING SPLITTER 10/18/2023 7:58 AM CASING SPLITTER Carter Ellis MD ECG ORDERABLES RADIOLOGY RESULTS * US Abdomen Limited (10/16/2023 9:36 AM CASING SPLITTER) Anatomical Region Laterality Modality Abdomen/Pelvis Ultrasound Impressions 10/16/2023 10:25 AM CASING SPLITTER IMPRESSION: 1. ??Hepatic steatosis, similar to previous. TRAVON HARRIS MD Narrative 10/16/2023 10:25 AM CASING SPLITTER US ABDOMEN LIMITED 10/16/2023 9:36 AM CLINICAL [...] ORDERABLES * CARDIOVERSION EXTERNAL (10/16/2023 8:35 AM CASING SPLITTER) Anatomical Region Laterality Modality Other Narrative 10/16/2023 8:35 AM CASING SPLITTER Carter Ellis MD ? 10/16/2023 ??9:05 AM [facility] Procedure: EP Cardioversion External Date/Time: [...] procedure a time out was called ?? [place] Protocol: the Joint Commission [place] Protocol was followed ?? Preparation: Patient was [...] or pauses. No apparent complications. Merlyn Lyon [facility] CV ELECTROPHYSIOLOG Y ORDERABLES * (ABNORMAL) Glucose by meter (10/16/2023 7:29 AM CASING SPLITTER) GLUCOSE BY METER POCT 128(H) 70 - 99 mg/dL 10/16/2023 7:36 AM CASING SPLITTER LABORATORY POC Blood, Capillary BLOOD SPECIMEN / Unknown 10/16/2023 7:29 AM CASING SPLITTER 10/16/2023 7:36 AM CASING SPLITTER Michelle TONEY - [facility] POCT LABORATORY POC [facility] Acute Care Lab [address] 1[address] floor, [address] [place] [address], [facility] [phone] * EKG 12-lead, tracing only (10/16/2023 7:11 AM CASING SPLITTER) Systolic Blood Pressure mmHg RADIOLOGY RESULTS Diastolic Blood Pressure mmHg RADIOLOGY RESULTS Ventricular Rate 108 BPM RAD IOLOGY RESULTS Atrial Rate 115 BPM RADIOLOG Y RESULTS MA Interval ms RADIOLOG Y RESULTS QRS Duration 84 ms RADIOLO GY RESULTS QT 308 ms RADIOLOGY RESULTS QTc 412 ms RADIOLOGY RESULTS P [place] degrees RADIOLOGY RESULTS R AXIS -31 degrees RADIOLOGY RESULTS T [place] 174 degrees RADIOLOGY RESULTS Interpretation ECG Atrial fibrillation with rapid ventricular response with premature ventricular or aberrantly conducted complexes Left axis deviation Nonspecific ST and T wave abnormality Abnormal ECG When compared with ECG of 14-OCT-2023 12:41, Nonspecific T wave abnormality now evident in Inferior leads Nonspecific T wave abnormality, worse in Lateral leads Confirmed by STACY FITZGERALD ([id number]), website/blog editor Cole Pool ([id number]) on 10/18/2023 8:02:41 AM RADIOLOGY RESULTS 10/16/2023 7:11 AM CASING SPLITTER 10/18/2023 8:02 AM CASING SPLITTER Michelle Eckert MD ECG ORDERABLES RADIOLOGY RESULTS * Hepatitis C antibody (10/16/2023 6:08 AM CASING SPLITTER) Hepatitis C Antibody Nonreactive Nonreactive 10/16/2023 3:31 PM CASING SPLITTER [facility] Comment:A nonreactive screen ing test [...] Unknown Venipuncture / Unknown 10/16/2023 6:08 AM CASING SPLITTER 10/16/2023 6:16 AM CASING SPLITTER Gail Post MD LAB - BLOOD ORDERABL ES [facility] Core Lab [address] [facility], [address] [place] [address], [facility] [phone] * Hepatitis B surface antigen (10/16/2023 6:08 AM CASING SPLITTER) Hepatitis B Surface Antigen Nonreactive Nonreactive 10/16/2023 3:31 PM CASING SPLITTER [facility] Blood STRUCTURE OF RIGHT HAND / Unknown Venipuncture / Unknown 10/16/2023 6:08 AM CASING SPLITTER 10/16/2023 6:16 AM [facility] Gail Post MD LAB - BLOOD ORDERABL ES [facility] Core Lab [address] [facility], [address] [address], [facility] [phone] * (ABNORMAL) Comprehensive metabolic panel (10/16/2023 6:08 AM [facility]) [facility] Sodium 141 135 - 145 mmol/L 10/16/2023 6:42 AM [facility] Comment:Reference intervals for this test were updated on 05/28/2023 to more accurately reflect our healthy population. There may be differences in the flagging of prior results with similar values performed with this method. Interpretation of those prior results can be made in the context of the updated reference intervals. Potassium 3.9 3.4 - 5.3 mmol/L 10/16/2023 6:42 AM [facility] Carbon Dioxide (CO2) 27 22 - 29 mmol/L 10/16/2023 6:42 AM [facility] Anion Gap 11 7 - 15 mmol/L 10/16/2023 6:42 AM [facility] Urea Nitrogen 27.2(H) 8.0 - 23.0 mg/dL 10/16/2023 6:42 AM [facility] Creatinine 1.38(H) 0.67 - 1.17 mg/dL 10/16/2023 6:42 AM [facility] GFR Estimate 51(L) >60 mL/min/1. 73m2 10/16/2023 6:42 AM [facility] Calcium 9.1 8.8 - 10.2 mg/dL 10/16/2023 6:42 AM [facility] Chloride 103 98 - 107 mmol/L 10/16/2023 6:42 AM [facility] Glucose 135(H) 70 - 99 mg/dL 10/16/2023 6:42 AM [facility] Alkaline Phosphatase 107 40 - 150 U/L 10/16/2023 6:42 AM [facility] Comment:Reference intervals for this test were updated on 07/16/2023 to more accurately reflect our healthy population. There may be differences in the flagging of prior results with similar values performed with this method. Interpretation of those prior results can be made in the context of the updated reference intervals. AST 193(H) 0 - 45 U/L 10/16/2023 6:42 AM [facility] Comment:Reference intervals for this test were updated on 02/11/2023 to more accurately reflect our healthy population. There may be differences in the flagging of prior results with similar values performed with this method. Interpretation of those prior results can be made in the context of the updated reference intervals. ALT 240(H) 0 - 70 U/L 10/16/2023 6:42 AM [facility] Comment:Reference intervals for this test were updated on 02/11/2023 to more accurately reflect our healthy population. There may be differences in the flagging of prior results with similar values performed with this method. Interpretation of those prior results can be made in the context of the updated reference intervals. Protein Total 6.4 6.4 - 8.3 g/dL 10/16/2023 6:42 AM [facility] Albumin 2.9(L) 3.5 - 5.2 g/dL 10/16/2023 6:42 AM [facility] Bilirubin Total 0.3 <=1.2 mg/dL 10/16/2023 6:42 AM [facility] Blood STRUCTURE OF RIGHT HAND / Unknown Venipuncture / Unknown 10/16/2023 6:08 AM CASING SPLITTER 10/16/2023 6:16 AM [facility] Bacilio Steele MD LAB - BLOOD OR DERABLES LABORATORY [facility] Acute Care Lab [address] 1[address] floor, [address] [place] [address], [facility] [phone] * (ABNORMAL) CBC with platelets (10/16/2023 6:08 AM [facility]) [facility] WBC Count 10.7 4.0 - 11.0 10e3/uL 10/16/2023 6:22 AM [facility] RBC Count 4.08(L) 4.40 - 5.90 10e6/uL 10/16/2023 6:22 AM [facility] Hemoglobin 12.6(L) 13.3 - 17.7 g/dL 10/16/2023 6:22 AM [facility] Hematocrit 38.5(L) 40.0 - 53.0 % 10/16/2023 6:22 AM [facility] MCV 94 78 - 100 fL 10/16/2023 6:22 AM [facility] MCH 30.9 26.5 - 33.0 pg 10/16/2023 6:22 AM [facility] MCHC 32.7 31.5 - 36.5 g/dL 10/16/2023 6:22 AM [facility] RDW 12.8 10.0 - 15.0 % 10/16/2023 6:22 AM [facility] Platelet Count 493(H) 150 - 450 10e3/uL 10/16/2023 6:22 AM [facility] Blood STRUCTURE OF RIGHT HAND / Unknown Venipuncture / Unknown 10/16/2023 6:08 AM CASING SPLITTER 10/16/2023 6:16 AM CASING SPLITTER Bacilio Steele MD LAB - BLOOD OR DERABLES [facility] Lab [address] 1[address], [address] [place] [address], [facility] [phone] * Magnesium (10/16/2023 6:08 AM CASING SPLITTER) Magnesium 1.9 1.7 - 2.3 mg/dL 10/16/2023 6:42 AM [facility] Blood STRUCTURE OF RIGHT HAND / Unknown Venipuncture / Unknown 10/16/2023 6:08 AM CASING SPLITTER 10/16/2023 6:16 AM CASING SPLITTER Merlyn Lyon CNP LAB - BLOOD ORDERAB LES [facility] Lab [address], [address] [place] [address], [facility] [phone] * (ABNORMAL) INR (10/16/2023 6:08 AM CASING SPLITTER) INR 3.26(H) 0.85 - 1.15 10/16/2023 6:45 AM CASING SPLITTER LABORATORY Blood STRUCTURE OF RIGHT HAND / Unknown Venipuncture / Unknown 10/16/2023 6:08 AM CASING SPLITTER 10/16/2023 6:16 AM CASING SPLITTER Merlyn Lyon [facility] LAB - BLOOD ORDERAB LES [facility] Lab [address], [address] [place] [address], [place] [phone] * (ABNORMAL) Glucose by meter (10/16/2023 1:10 AM CASING SPLITTER) GLUCOSE BY METER POCT 169(H) 70 - 99 mg/dL 10/16/2023 1:20 AM CASING SPLITTER LABORATORY POC Blood, Capillary BLOOD SPECIMEN / Unknown 10/16/2023 1:10 AM CASING SPLITTER 10/16/2023 1:20 AM CASING SPLITTER Michelle STERLING POCT [facility] Lab [address], [address] [place] [address], [place] [phone] * (ABNORMAL) Glucose by meter (10/15/2023 9:26 PM CASING SPLITTER) GLUCOSE BY METER POCT 219(H) 70 - 99 mg/dL 10/15/2023 9:33 PM CASING SPLITTER LABORATORY POC Blood, Capillary BLOOD SPECIMEN / Unknown 10/15/2023 9:26 PM CASING SPLITTER 10/15/2023 9:33 PM CASING SPLITTER Michelle STERLING POCT [facility] Lab [address] 1[address], [address] [place] [address], [facility] [phone] * (ABNORMAL) Glucose by meter (10/15/2023 5:29 PM CASING SPLITTER) GLUCOSE BY METER POCT 218(H) 70 - 99 mg/dL 10/15/2023 5:40 PM CASING SPLITTER LABORATORY POC Blood, Capillary BLOOD SPECIMEN / Unknown 10/15/2023 5:29 PM CASING SPLITTER 10/15/2023 5:40 PM CASING SPLITTER Michelle Eckert MD [facility] POC [facility] Lab [address], [address] [place] [address], [place] [phone] * (ABNORMAL) Glucose by meter (10/15/2023 12:01 PM CASING SPLITTER) GLUCOSE BY METER POCT 130(H) 70 - 99 mg/dL 10/15/2023 12:07 PM CASING SPLITTER LABORATORY POC Blood, Capillary BLOOD SPECIMEN / Unknown 10/15/2023 12:01 PM CASING SPLITTER 10/15/2023 12:07 PM CASING SPLITTER Michelle TONEY - [facility] POCT LABORATORY POC [facility] Lab [address], [address] [place] [address], [facility] [phone] * XR Chest 2 Views (10/15/2023 8:09 AM CASING SPLITTER) Anatomical Region Laterality Modality Chest Digital Radiogra phy Impressions 10/15/2023 9:13 AM CASING SPLITTER IMPRESSION: Stable cardiac silhouette which is partially obscured. Similar opacification of the left lung base which is favored secondary to a moderate-sized left pleural effusion with underlying consolidation not excluded. Similar calcified granuloma of the right lung base. No discernible pneumothorax. No acute displaced fracture. PRECIOUS YOON MD Narrative 10/15/2023 9:13 AM CASING SPLITTER CHEST TWO VIEWS 10/15/2023 8:09 AM HISTORY: [...] (ABNORMAL) Glucose by meter (10/15/2023 7:39 AM CASING SPLITTER) GLUCOSE BY METER POCT 122(H) 70 - 99 mg/dL 10/15/2023 7:46 AM CASING SPLITTER LABORATORY POC Blood, Capillary BLOOD SPECIMEN / Unknown 10/15/2023 7:39 AM CASING SPLITTER 10/15/2023 7:46 AM CASING SPLITTER Michelle TONEY - [facility] POCT LABORATORY POC [facility] Acute [facility] Lab [address], [address] [place] [address], [facility] [phone] * (ABNORMAL) Lipid panel reflex to direct LDL (10/15/2023 7:15 AM CASING SPLITTER) Cholesterol 66 <200 mg/dL 10/15/2023 11:29 AM CASING SPLITTER [facility] Triglycerides 65 <150 mg/dL 10/15/2023 11:29 AM CASING SPLITTER [facility] Direct Measure HDL 26(L) >=40 mg/dL 2023 11:29 AM CASING SPLITTER [facility] LDL Cholesterol Calculated 27 <=100 mg/dL 10/15/2023 11:29 AM CASING SPLITTER [facility] Non HDL Cholesterol 40 <130 mg/dL 10/15/2023 11:29 AM CASING SPLITTER [facility] Patient Fasting > 8hrs? Yes 10/15/2023 11:29 AM [facility] Blood STRUCTURE OF RIGHT UPPER LIMB / Unknown Venipuncture / Unknown 10/15/2023 7:15 AM CASING SPLITTER 10/15/2023 7:39 AM CASING SPLITTER Narrative [facility] - 10/15/2023 11:29 AM CASING SPLITTER Cholesterol Desirable: ??<200 mg/dL Triglycerides Normal: ??Less [...] LAB - BLOOD ORDERABLES Performing Organization Address City/State/[facility] Co de Phone Number [facility] Core Lab [address] [facility] [address], [address] [place] [address], [place] [phone] [facility] Lab [address], [address] [place] [address], [place] [phone] * (ABNORMAL) Troponin T, High Sensitivity (10/15/2023 7:15 AM CASING SPLITTER) Troponin T, High Sensitivity 30(H) <=22 ng/L 10/15/2023 8:11 AM [facility] Comment: Either a High Sensitivity Troponin [...] Unknown Venipuncture / Unknown 10/15/2023 7:15 AM CASING SPLITTER 10/15/2023 7:39 AM [facility] Dulce Fisher PA-C LAB - BLOOD ORDERABLES LABORATORY [facility] Acute [facility] Lab [address], [address] [place] [address], [facility] [phone] * (ABNORMAL) CBC with platelets (10/15/2023 7:15 AM [facility]) WBC Count 15.3(H) 4.0 - 11.0 10e3/uL 10/15/2023 7:43 AM [facility] RBC Count 4.00(L) 4.40 - 5.90 10e6/uL 10/15/2023 7:43 AM [facility] Hemoglobin 12.4(L) 13.3 - 17.7 g/dL 10/15/2023 7:43 AM [facility] Hematocrit 36.9(L) 40.0 - 53.0 % 10/15/2023 7:43 AM [facility] MCV 92 78 - 100 fL 10/15/2023 7:43 AM [facility] MCH 31.0 26.5 - 33.0 pg 10/15/2023 7:43 AM [facility] MCHC 33.6 31.5 - 36.5 g/dL 10/15/2023 7:43 AM [facility] RDW 12.6 10.0 - 15.0 % 10/15/2023 7:43 AM [facility] Platelet Count 566(H) 150 - 450 10e3/uL 10/15/2023 7:43 AM [facility] Blood STRUCTURE OF RIGHT UPPER LIMB / Unknown Venipuncture / Unknown 10/15/2023 7:15 AM [facility] 10/15/2023 7:39 AM [facility] Dulce Fisher PA-C LAB - BLOOD ORDERABLES LABORATORY [facility] Lab [address], [address] [place] [address], [facility] [phone] * (ABNORMAL) Comprehensive metabolic panel (10/15/2023 7:15 AM [facility]) Sodium 138 135 - 145 mmol/L 10/15/2023 8:11 AM [facility] Comment:Reference intervals for this test were updated on 05/28/2023 to more accurately reflect our healthy population. There may be differences in the flagging of prior results with similar values performed with this method. Interpretation of those prior results can be made in the context of the updated reference intervals. Potassium 3.8 3.4 - 5.3 mmol/L 10/15/2023 8:11 AM [facility] Carbon Dioxide (CO2) 26 22 - 29 mmol/L 10/15/2023 8:11 AM [facility] Anion Gap 12 7 - 15 mmol/L 10/15/2023 8:11 AM [facility] Urea Nitrogen 26.1(H) 8.0 - 23.0 mg/dL 10/15/2023 8:11 AM [facility] Creatinine 1.41(H) 0.67 - 1.17 mg/dL 10/15/2023 8:11 AM [facility] GFR Estimate 49(L) >60 mL/min/1. 73m2 10/15/2023 8:11 AM [facility] Calcium 9.0 8.8 - 10.2 mg/dL 10/15/2023 8:11 AM [facility] Chloride 100 98 - 107 mmol/L 10/15/2023 8:11 AM [facility] Glucose 120(H) 70 - 99 mg/dL 10/15/2023 8:11 AM [facility] Alkaline Phosphatase 87 40 - 150 U/L 10/15/2023 8:11 AM [facility] Comment:Reference intervals for this test were updated on 07/16/2023 to more accurately reflect our healthy population. There may be differences in the flagging of prior results with similar values performed with this method. Interpretation of those prior results can be made in the context of the updated reference intervals. AST 64(H) 0 - 45 U/L 10/15/2023 8:11 AM [facility] Comment:Reference intervals for this test were updated on 02/11/2023 to more accurately reflect our healthy population. There may be differences in the flagging of prior results with similar values performed with this method. Interpretation of those prior results can be made in the context of the updated reference intervals. ALT 123(H) 0 - 70 U/L 10/15/2023 8:11 AM [facility] Comment:Reference intervals for this test were updated on 02/11/2023 to more accurately reflect our healthy population. There may be differences in the flagging of prior results with similar values performed with this method. Interpretation of those prior results can be made in the context of the updated reference intervals. Protein Total 6.4 6.4 - 8.3 g/dL 10/15/2023 8:11 AM [facility] Albumin 3.1(L) 3.5 - 5.2 g/dL 10/15/2023 8:11 AM [facility] Bilirubin Total 0.5 <=1.2 mg/dL 10/15/2023 8:11 AM [facility] Blood STRUCTURE OF RIGHT UPPER LIMB / Unknown Venipuncture / Unknown 10/15/2023 7:15 AM [facility] 10/15/2023 7:39 AM [facility] Dulce Fisher PA-C LAB - BLOOD ORDERABLES LABORATORY [facility] [address], [address] [place] [address], [facility] [phone] * (ABNORMAL) Glucose by meter (10/15/2023 2:13 AM [facility]) GLUCOSE BY METER POCT 171(H) 70 - 99 mg/dL 10/15/2023 2:20 AM [facility] POC Blood, Capillary BLOOD SPECIMEN / Unknown 10/15/2023 2:13 AM [facility] 10/15/2023 2:20 AM [facility] Michelle Eckert MD LAB - [facility] POC [facility] [address] 1[address], [address] [place] [address], [place] [phone] * (ABNORMAL) Glucose by meter (10/14/2023 10:11 PM CASING SPLITTER) GLUCOSE BY METER POCT 221(H) 70 - 99 mg/dL 10/14/2023 10:19 PM CASING SPLITTER LABORATORY POC Blood, Capillary BLOOD SPECIMEN / Unknown 10/14/2023 10:11 PM CASING SPLITTER 10/14/2023 10:19 PM CASING SPLITTER Michelle TONEY - BEAKER POCT LABORATORY POC [facility] [address], [address] [place] [address], [place] [phone] * Lactic acid whole blood (10/14/2023 6:53 PM CASING SPLITTER) Lactic Acid 1.4 0.7 - 2.0 mmol/L 10/14/2023 7:02 PM CASING SPLITTER LABORATORY Blood STRUCTURE OF RIGHT HAND / Unknown Venipuncture / Unknown 10/14/2023 6:53 PM CASING SPLITTER 10/14/2023 6:59 PM CASING SPLITTER Dulce Fisher PA-C LAB - BLOOD ORDERABLES LABORATORY [facility] [address] 1[address], [address] [place] [address], [facility] [phone] * (ABNORMAL) Glucose by meter (10/14/2023 5:42 PM CASING SPLITTER) GLUCOSE BY METER POCT 134(H) 70 - 99 mg/dL 10/14/2023 6:38 PM CASING SPLITTER LABORATORY POC Blood, Capillary BLOOD SPECIMEN / Unknown 10/14/2023 5:42 PM CASING SPLITTER 10/14/2023 6:38 PM CASING SPLITTER Michelle Eckert MD LAB - BEAKER POCT LABORATORY POC [facility] [address] 1[address], [address] [place] [address], [facility] [phone] * Asymptomatic Influenza A/B, RSV, & SARS-CoV2 PCR (COVID-19) Nasopharyngeal (10/14/2023 4:40 PM CASING SPLITTER) Influenza A PCR Negative Negative 10/14/2023 6:12 PM CASING SPLITTER LABORATORY Influenza B PCR Negative Negative 10/14/2023 6:12 PM CASING SPLITTER LABORATORY RSV PCR Negative Negative 10/14/2023 6:12 PM CASING SPLITTER LABORATORY SARS CoV2 PCR Negative Negative 10/14/2023 6:12 PM CASING SPLITTER LABORATORY Comment:NEGATIVE: SARS-CoV-2 (COVID-19) RNA not detected, presumed negative. Swab NASOPHARYNGEAL STRUCTURE / Unknown Non-blood Collection / Unknown 10/14/2023 4:40 PM CASING SPLITTER 10/14/2023 4:50 PM CASING SPLITTER Narrative LABORATORY - 10/14/2023 6:12 PM CASING SPLITTER Testing was performed using the Xpert Xpress CoV2/Flu/RSV Assay on the [employer] GeneXpert Instrument. This test should be ordered [...] management. This test was validated by the [facility]. These laboratories are certified under the Clinical Laboratory Improvement Amendments of 1988 (CLIA-88) as qualified to perform high complexity laboratory testing. Dulce Fisher PA-C LAB - MICRO GENERAL ORDERABLES LABORATORY [facility] [address] 1[address], [address] [place] [address], [facility] [phone] * (ABNORMAL) Troponin T, High Sensitivity (10/14/2023 2:57 PM CASING SPLITTER) Pathologist [facility] Troponin T, High Sensitivity 24(H) <=22 ng/L 10/14/2023 3:30 PM CASING SPLITTER LABORATORY Comment: Either a High Sensitivity Troponin [...] Unknown Venipuncture / Unknown 10/14/2023 2:57 PM CASING SPLITTER 10/14/2023 3:04 PM CASING SPLITTER Dulce Fisher PA-C LAB - BLOOD ORDERABLES LABORATORY [facility] [address], [address] [place] [address], [facility] [phone] * (ABNORMAL) Lactic Acid STAT (10/14/2023 2:57 PM CASING SPLITTER) Lactic Acid 3.1(H) 0.7 - 2.0 mmol/L 10/14/2023 3:15 PM CASING SPLITTER LABORATORY Blood BLOOD SPECIMEN / Unknown Venipuncture / Unknown 10/14/2023 2:57 PM CASING SPLITTER 10/14/2023 3:04 PM CASING SPLITTER Dulce Fisher PA-C LAB - BLOOD ORDERABLES LABORATORY [facility] [address], [address] [place] [address], [place] [phone] * Blood Culture Hand, Right (10/14/2023 2:28 PM CASING SPLITTER) Culture No Growth 10/19/2023 5:32 PM CASING SPLITTER [facility] Blood STRUCTURE OF RIGHT HAND / Unknown Venipuncture / Unknown 10/14/2023 2:28 PM CASING SPLITTER 10/14/2023 2:35 PM CASING SPLITTER Narrative [facility] - 10/19/2023 5:32 PM CASING SPLITTER Only an Aerobic Blood Culture Bottle was collected, interpret results with caution. Ilan Batres AB - MICRO GENERAL ORDERABLES [facility]ORAT[facility] Inf. Diseases Diag. Lab [address], [address] [place] [address], [place] [phone] * Blood Culture Hand, Left (10/14/2023 2:20 PM CASING SPLITTER) Culture No Growth 10/19/2023 5:32 PM CASING SPLITTER [facility] Blood STRUCTURE OF LEFT HAND / Unknown Venipuncture / Unknown 10/14/2023 2:20 PM CASING SPLITTER 10/14/2023 2:35 PM CASING SPLITTER Narrative [facility] - 10/19/2023 5:32 PM CASING SPLITTER Only an Aerobic Blood Culture Bottle was collected, interpret results with caution. Ilan Alves MD L AB - MICRO GENERAL ORDERABLES [facility]ORAT[facility] Inf. Diseases Diag. Lab [address], [address] [place] [address], [facility] [phone] * Chest XR, PA & LAT (10/14/2023 1:12 PM CASING SPLITTER) Anatomical Region Laterality Modality Chest Digital Radiogra phy Impressions 10/14/2023 6:08 PM CASING SPLITTER IMPRESSION: New finding of small-moderate left pleural fluid. New consolidation or atelectasis at the left lung base. Obscured cardiac silhouette. Right lung appears clear. ELO DIETRICH MD SYSTEM ID: [id number] Narrative 10/14/2023 6:08 PM CASING SPLITTER CHEST TWO VIEWS ??10/14/2023 1:12 PM HISTORY: Chest pain. COMPARISON: CT chest 08/16/2023. Procedure Note Elo Dietrich MD - 10/14/2023 CHEST TWO VIEWS 10/14/2023 1:12 PM HISTORY: Chest pain. COMPARISON: CT chest 08/16/2023. IMPRESSION: New finding of small-moderate left pleural fluid. New consolidation or atelectasis at the left lung base. Obscured cardiac silhouette. Right lung appears clear. ELO DIETRICH MD SYSTEM ID: [id number] Baldev Burton DO IMG DIAGNO STIC IMAGING ORDERABLES * (ABNORMAL) Hemoglobin A1c (10/14/2023 12:53 PM CASING SPLITTER) Hemoglobin A1C 8.4(H) <5.7 % 10/14/2023 4:04 PM CASING SPLITTER LABORATORY Comment: Normal <5.7% Prediabetes 5.7-6.4% ?? Diabetes 6.5% or higher Note: Adopted from ADA consensus guidelines. Blood STRUCTURE OF LEFT UPPER LIMB / Unknown Venipuncture / Unknown 10/14/2023 12:53 PM CASING SPLITTER 10/14/2023 12:57 PM CASING SPLITTER Dulce Fisher PA-C LAB - BLOOD ORDERABLES LABORATORY [facility] [address], [place] [address] [address], [facility] [phone] * Magnesium (10/14/2023 12:53 PM CASING SPLITTER) Magnesium 1.8 1.7 - 2.3 mg/dL 10/14/2023 3:40 PM CASING SPLITTER LABORATORY Blood STRUCTURE OF LEFT UPPER LIMB / Unknown Venipuncture / Unknown 10/14/2023 12:53 PM CASING SPLITTER 10/14/2023 12:57 PM CASING SPLITTER Dulce Fisher PA-C LAB - BLOOD ORDERABLES Performing Organization Address City/[facility]/ZIP Co de Phone Number LABORATORY [facility] [address], [address] [address], [facility] [phone] * Procalcitonin (10/14/2023 12:53 PM CASING SPLITTER) Procalcitonin 0.07 <0.50 ng/mL 10/14/2023 2:31 PM CASING SPLITTER LABORATORY Comment: Interpretation and Recommendations <0.5 ng/mL: Systemic bacterial infection unlikely. Local bacterial infection is possible. 0.5-1.99 ng/mL: Systemic bacterial infection possible, but various other conditions are known to induce PCT as well. >=2.00 ng/mL: Systemic bacterial infection likely, unless other causes are known. Decision to start antibiotics should not be based on procalcitonin level alone. See Procalcitonin Guidance document for more details. [email or web address] Factors that may affect PCT levels (not [...] Unknown Venipuncture / Unknown 10/14/2023 12:53 PM CASING SPLITTER 10/14/2023 12:57 PM CASING SPLITTER Dulce Fisher PA-C LAB - BLOOD ORDERABLES LABORATORY [facility] [address], [address] [place] [address], [facility] [phone] * Extra Blue Top Tube (10/14/2023 12:53 PM CASING SPLITTER) [facility] Hold Specimen [facility] 10/14/2023 2:04 PM CASING SPLITTER LABORATORY Blood STRUCTURE OF LEFT UPPER LIMB / Unknown Venipuncture / Unknown 10/14/2023 12:53 PM CASING SPLITTER 10/14/2023 12:57 PM CASING SPLITTER Baldev Burton DO LAB - BLOO D ORDERABLES LABORATORY [facility] [address], [address] [place] [address], [facility] [phone] * (ABNORMAL) CBC with platelets and differential (10/14/2023 12:53 PM CASING SPLITTER) WBC Count 18.5(H) 4.0 - 11.0 10e3/uL 10/14/2023 1:02 PM [facility] RBC Count 4.25(L) 4.40 - 5.90 10e6/uL 10/14/2023 1:02 PM [facility] Hemoglobin 13.1(L) 13.3 - 17.7 g/dL 10/14/2023 1:02 PM [facility] Hematocrit 40.0 40.0 - 53.0 % 10/14/2023 1:02 PM [facility] MCV 94 78 - 100 fL 10/14/2023 1:02 PM [facility] MCH 30.8 26.5 - 33.0 pg 10/14/2023 1:02 PM [facility] MCHC 32.8 31.5 - 36.5 g/dL 10/14/2023 1:02 PM [facility] RDW 12.7 10.0 - 15.0 % 10/14/2023 1:02 PM [facility] Platelet Count 574(H) 150 - 450 10e3/uL 10/14/2023 1:02 PM [facility] % Neutrophils 83 % 10/14/2023 1:02 PM [facility] % Lymphocytes 10 % 10/14/2023 1:02 PM [facility] % Monocytes 6 % 10/14/2023 1:02 PM [facility] % Eosinophils 0 % 10/14/2023 1:02 PM [facility] % Basophils 0 % 10/14/2023 1:02 PM [facility] % Immature Granulocytes 1 % 10/14/2023 1:02 PM [facility] NRBCs per 100 WBC 0 <1 /100 024 1:02 PM [facility] Absolute Neutrophils 15.2(H) 1.6 - 8.3 10e3/uL 10/14/2023 1:02 PM [facility] Absolute Lymphocytes 1.9 0.8 - 5.3 10e3/uL 10/14/2023 1:02 PM [facility] Absolute Monocytes 1.1 0.0 - 1.3 10e3/uL 10/14/2023 1:02 PM [facility] Absolute Eosinophils 0.0 0.0 - 0.7 10e3/uL 10/14/2023 1:02 PM [facility] Absolute Basophils 0.1 0.0 - 0.2 10e3/uL 10/14/2023 1:02 PM [facility] Absolute Immature Granulocytes 0.1 <=0.4 10e3/uL 10/14/2023 1:02 PM [facility] Absolute NRBCs 0.0 10e3/uL 10/14/2023 1:02 PM [facility] Blood STRUCTURE OF LEFT UPPER LIMB / Unknown Venipuncture / Unknown 10/14/2023 12:53 PM CASING SPLITTER 10/14/2023 12:57 PM CASING SPLITTER Baldev Burton DO LAB - BLOO D ORDERABLES LABORATORY [facility] [address], [address] [place] [address], [facility] [phone] * (ABNORMAL) Troponin T, High Sensitivity (10/14/2023 12:53 PM CASING SPLITTER) Pathologist [facility] Troponin T, High Sensitivity 25(H) <=22 ng/L 10/14/2023 1:22 PM CASING SPLITTER LABORATORY Comment: Either a High Sensitivity Troponin [...] Unknown Venipuncture / Unknown 10/14/2023 12:53 PM CASING SPLITTER 10/14/2023 12:57 PM CASING SPLITTER Baldev Burton LAB - BLOO D ORDERABLES LABORATORY [facility] [address], [address] [address], [facility] [phone] * Lipase (10/14/2023 12:53 PM CASING SPLITTER) Lipase 60 13 - 60 U/L 10/14/2023 1:22 PM CASING SPLITTER LABORATORY Blood STRUCTURE OF LEFT UPPER LIMB / Unknown Venipuncture / Unknown 10/14/2023 12:53 PM CASING SPLITTER 10/14/2023 12:57 PM CASING SPLITTER Baldev Burton LAB - BLOO D ORDERABLES LABORATORY [facility] [address], [address] [address], [facility] [phone] * (ABNORMAL) Comprehensive metabolic panel (10/14/2023 12:53 PM CASING SPLITTER) Sodium 134(L) 135 - 145 mmol/L 10/14/2023 1:22 PM CASING SPLITTER LABORATORY Comment:Reference intervals for this test were updated on 05/28/2023 to more accurately reflect our healthy population. There may be differences in the flagging of prior results with similar values performed with this method. Interpretation of those prior results can be made in the context of the updated reference intervals. Potassium 4.0 3.4 - 5.3 mmol/L 10/14/2023 1:22 PM [facility] Carbon Dioxide (CO2) 29 22 - 29 mmol/L 10/14/2023 1:22 PM [facility] Anion Gap 12 7 - 15 mmol/L 10/14/2023 1:22 PM [facility] Urea Nitrogen 30.1(H) 8.0 - 23.0 mg/dL 10/14/2023 1:22 PM [facility] Creatinine 1.49(H) 0.67 - 1.17 mg/dL 10/14/2023 1:22 PM [facility] GFR Estimate 46(L) >60 mL/min/1. 73m2 10/14/2023 1:22 PM [facility] Calcium 9.2 8.8 - 10.2 mg/dL 10/14/2023 1:22 PM [facility] Chloride 93(L) 98 - 107 mmol/L 10/14/2023 1:22 PM [facility] Glucose 201(H) 70 - 99 mg/dL 10/14/2023 1:22 PM [facility] Alkaline Phosphatase 92 40 - 150 U/L 10/14/2023 1:22 PM [facility] Comment:Reference intervals for this test were updated on 07/16/2023 to more accurately reflect our healthy population. There may be differences in the flagging of prior results with similar values performed with this method. Interpretation of those prior results can be made in the context of the updated reference intervals. AST 65(H) 0 - 45 U/L 10/14/2023 1:22 PM [facility] Comment:Reference intervals for this test were updated on 02/11/2023 to more accurately reflect our healthy population. There may be differences in the flagging of prior results with similar values performed with this method. Interpretation of those prior results can be made in the context of the updated reference intervals. ALT 118(H) 0 - 70 U/L 10/14/2023 1:22 PM [facility] Comment:Reference intervals for this test were updated on 02/11/2023 to more accurately reflect our healthy population. There may be differences in the flagging of prior results with similar values performed with this method. Interpretation of those prior results can be made in the context of the updated reference intervals. Protein Total 6.9 6.4 - 8.3 g/dL 10/14/2023 1:22 PM CASING SPLITTER LABORATORY Albumin 3.4(L) 3.5 - 5.2 g/dL 10/14/2023 1:22 PM CASING SPLITTER LABORATORY Bilirubin Total 0.6 <=1.2 mg/dL 10/14/2023 1:22 PM CASING SPLITTER LABORATORY Blood STRUCTURE OF LEFT UPPER LIMB / Unknown Venipuncture / Unknown 10/14/2023 12:53 PM CASING SPLITTER 10/14/2023 12:57 PM CASING SPLITTER Baldev Burton DO LAB - BLOO D ORDERABLES LABORATORY [facility] [address], [address] [place] [address], [facility] [phone] * EKG 12 lead (10/14/2023 12:41 PM CASING SPLITTER) Systolic Blood Pressure mmHg RADIOLOGY RESULTS Diastolic Blood Pressure mmHg RADIOLOGY RESULTS Ventricular Rate 103 BPM RAD IOLOGY RESULTS Atrial Rate BPM RADIOLOG Y RESULTS MA Interval ms RADIOLOG Y RESULTS QRS Duration 86 ms RADIOLO GY RESULTS QT 290 ms RADIOLOGY RESULTS QTc 379 ms RADIOLOGY RESULTS P [place] degrees RADIOLOGY RESULTS R AXIS -40 degrees RADIOLOGY RESULTS T [place] 100 degrees RADIOLOGY RESULTS Interpretation ECG Atrial [...] leads Confirmed by GENERATED REPORT, COMPUTER ([id number]), website/blog editor ESTEVAN MCDANIELS ([id number]) on 10/14/2023 3:56:41 PM RADIOLOGY RESULTS 10/14/2023 12:4 1 PM CASING SPLITTER 10/14/2023 3:56 PM CASING SPLITTER Baldev Burton DO ECG ORDERA BLES RADIOLOGY [...] unspecified type Community acquired pneumonia, unspecified laterality Atrial flutter (H) Atrial flutter documented in this encounter Admitting Diagnoses Diagnosis [...] exceed 4 grams/day. $Given 10/15/2023 7:36 PM CASING SPLITTER 650 mg $Given 10/14/2023 6:17 PM CASING SPLITTER 650 mg albuterol (PROVENTIL) neb solution 2.5 [...] Acquired Pneumonia $New Bag 10/15/2023 3:04 PM CASING SPLITTER 250 mg cefTRIAXone (ROCEPHIN) 2 g vial [...] Acquired Pneumonia $New Bag 10/16/2023 2:13 PM CASING SPLITTER 2 g $New Bag 10/15/2023 1:01 PM CASING SPLITTER 2 g dextrose 50 % injection 25-50 [...] Sat10/14/23 at 2200 $Given 10/15/2023 9:31 PM CASING SPLITTER 100 mg $Given 10/14/2023 10:09 PM CASING SPLITTER 100 mg glucagon injection 1 mg 1 [...] of correction dose. $Given 10/15/2023 6:43 PM CASING SPLITTER 2 Units insulin aspart (NovoLOG) injection (RAPID [...] of correction dose. $Given 10/15/2023 9:31 PM CASING SPLITTER 1 Units $Given 10/14/2023 10:46 PM CASING SPLITTER 1 Units insulin glargine (LANTUS PEN) injection 30 Units 30 Units, Subcutaneous, AT BEDTIME, First dose on Sat10/14/23 at 2200 $Given 10/15/2023 9:31 PM CASING SPLITTER 30 Units $Given 10/14/2023 10:46 PM CASING SPLITTER 30 Units losartan (COZAAR) tablet 100 mg 100 mg, Oral, DAILY WITH SUPPER, First dose on Sat10/14/23 at 1800, HOLD for SBP <110 $Given 10/15/2023 6:06 PM CASING SPLITTER 10 0 mg $Given 10/14/2023 6:17 PM CASING SPLITTER 100 mg melatonin tablet 5 mg 5 mg, Oral, AT BEDTIME PRN, sleep, Starting on Sat10/15/23 at 1859 metoprolol succinate ER (TOPROL XL) 24 hr tablet 25 mg 25 mg, Oral, DAILY, First dose on Sat10/15/23 at 1200, DO NOT CRUSH. Tablet may be split in half along score line. $Given 10/15/2023 1:01 PM CASING SPLITTER 25 mg mirabegron (MYRBETRIQ) 24 hr tablet 50 mg 50 mg, Oral, DAILY, First dose on Sat10/14/23 at 1800, Do not chew, crush or split tablets. $Given 10/15/2023 6:0 6 PM CASING SPLITTER 50 mg $Given 10/14/2023 6:17 PM CASING SPLITTER 50 mg naloxone (NARCAN) injection 0.2 mg [...] Sat10/14/23 at 1912 $Given 10/14/2023 11:53 PM CASING SPLITTER 0.4 m g ondansetron (ZOFRAN ODT) ODT [...] Indications: Afib-non valvular $Given 10/15/2023 6:06 PM CASING SPLITTER 20 mg $Given 10/14/2023 7:54 PM CASING SPLITTER 20 mg senna-docusate (SENOKOT-S/PERICOLACE) 8.6-50 MG per [...] for loose stools. $Given 10/15/2023 7:40 AM CASING SPLITTER 1 tablet $Given 10/14/2023 7:54 PM CASING SPLITTER 1 tablet senna-docusate (SENOKOT-S/PERICOLACE) 8.6-50 MG per [...] IV dormant line. Positive 10/16/2023 9:16 AM CASING SPLITTER 3 mLs $Given 10/15/2023 6:43 PM CASING SPLITTER 3 mLs $Given 10/15/2023 11:16 AM CASING SPLITTER 3 mLs documented in this encounter Active and Recently Administered Medications Times are shown in CASING SPLITTER. Scheduled Medication Order 10/14/2023 10/15/2023 10/16/2023 amLODIPine [...] Pneumonia 1542 ($New Bag - Provider: Cyndee Miller, NOBLE)1645 (Stopped - Provider: Cyndee Miller, NOBLE) cefTRIAXone (ROCEPHIN) 2 g vial to attach to NS 100 ml bag for ADULTS or NS 50 ml bag for PEDS (COMPLETED) STAT, 2 g, Intravenous, ONCE, On Sat10/14/23 at 1355, For 1 dose, Indications: Community Acquired Pneumonia 1440 ($New Bag - Provider: Kala Chávez, RN)1521 (Stopped - Provider: Kala Chávez RN) [...] at 2200 2209 ($Given - Provider: Lauryn Sanchez, NOBLE) 2131 ($Given - Provider: Lauryn Sanchez RN) [...] Sat10/14/23 at 1800, HOLD for SBP <110 1817 ($Given - Provider: Heather Parada RN) [...] Do not chew, crush or split tablets. 1816 ($Given - Provider: Heather Parada RN) 180 ($Given - Provider: Heather Parada RN) 1800 (Canceled Entry - Provider: Orders Generic Provider - Comment: Automatically canceled at discontinue of medication order) rivaroxaban ANTICOAGULANT (XARELTO) tablet 20 mg 20 mg, Oral, DAILY WITH SUPPER, First dose on Sat10/14/23 at 1900, Indications: Afib-non valvular 1953 ($Given - Provider: aLuryn Sanchez RN) 1805 ($Given - Provider: Heather Parada RN) 1700 [...] RN) 0740 ($Given - Provider: Heather Parada RN)1935 (Not Given - Provider: Lauryn Sanchez RN [...] Heather Parada RN)193 (See Alternative - Provider: Laurny Sanchez RN) 0847 (See Alternative - Provider: [...] (See Alternative - Provider: Heather Parada RN) 193 (See Alternative - Provider: Lauryn Sanchez RN) [...] 4 grams/day. 1816 ($Given - Provider: Heather Parada, RN) 1935 ($Given - Provider: Lauryn Sanchez [...] stools. documented in this encounter Care Teams Trailers [employer] Salesperson Relationship Specialty Start Date End Date Merrill Mejia MD [facility] [address] [place] [address] PCP - General Family Medicine 10/10/23 10/24/23 Nicanor Patel MD [address] [place] [id number] Cardiovascular Disease 09/16/23 Nicanor Patel MD [address] [place] [id number] Cardiovascular Disease 09/16/23 Nicanor Patel MD [address] [place] [id number] Assigned Heart and Vascular Provider 09/26/23 documented as of this encounter
--- OUTSIDE RECORDS SUMMARY | 2024-01-08 07:16 | XMS_ITS | Encounter Summary ---
Author Name Unknown Organization [facility] Address [facility] [place] [address] Care Team Providers Care Base Ply Hand Name Role Phone Nicanor Klein MD Unavailable Nicanor Klein MD Unavailable Nicanor Klein MD Unavailable Merrill Mejia MD Primary Care Provider [phone] Encounter Details Date Type Department Care Team (Latest Contact Info) Description 10/14/2023 Travel Social History Tobacco Use Types Packs/Day Years Used Date Smoking Tobacco: Never Alcohol Use Standard Drinks/Week Comments Yes 0 (1 standard drink = 0.6 oz pur e alcohol) Adolescent Education Answer Date Record ed Getting School Help Needed Not on file 06/09 Sex and Gender Information Value Date Recorded Sex Assigned at Male 09/28/2023 2:19 PM [employer] SYSTEM[employer] PROGRAMMER Gender Identity Male 09/28/2023 2:19 PM [employer] PROGRAMMER Sexual Orientation Straight 09/28/2023 2: 19 PM [employer] PROGRAMMER documented as of this encounter Plan of Treatment Upcoming Encounters Date Type Department Care Team (Late st Contact Info) Description 05/14/2024 12:30 PM CDT Office Visit [facility] [address] [place] [address] Gail Post MD [address] [address] Anushka Carrasquillo MD [address] [facility] [address] [place], [place] [id number] documented as of this encounter Visit Diagnoses Not on filedocumented in this encounter Care Teams Base Ply Hand Relationship Specialty Start Date End Date Merrill Mejia MD [facility] [address] [place] [address] PCP - General Family Medicine 10/10/23 10/24/23 Nicanor Klein MD [address] [place] [id number] [place] [id number] Cardiovascular Disease 09/16/23 Nicanor Klein MD [address], [facility] [place] [id number] Cardiovascular Disease 09/16/23 Nicanor Klein MD [address] [place] [id number] [place] [id number] Assigned Heart and Vascular Provider 09/26/23 documented as of this encounter
--- OUTSIDE RECORDS SUMMARY | 2024-01-08 07:17 | XMS_ITS ---
Author Name Unknown Organization [facility] Address [address] [place] [address] Care Team Providers Care Health Analytics Consultant Name Role Phone Unavailable Unavailable Unavailable Surgery Details Not on file Complications Check Surgery Details section. Procedure Estimated Blood Loss Check Surgery Details section. Procedure Findings Check Surgery Details section. Procedure Specimens Taken Check Surgery Details section.
--- OUTSIDE RECORDS SUMMARY | 2024-01-08 07:17 | XMS_ITS | Encounter Summary ---
Author Name Unknown Organization [facility] Address [address] [place] [id number] Care Team Providers Care Data Warehouse Architect Name Role Phone Edwige Negrete MD Primary Care Provider [phone] Nicanor Klein MD Unavailable Nicanor Klein MD Unavailable Nicanor Klein MD Unavailable Reason for Visit * Reason Comments Chest Pain Shortness of Breath Encounter Details Date Type Department Care Team (Late st Contact Info) Description 10/01/2023 11:12 AM NAPHTHALENE OPERATOR - 10/01/2023 4:54 PM [facility] [address] [place] [id number] [phone] Angi Webber MD [facility] [address] [place] [address] Dar Zheng MD [facility] [address] [facility] [address] [place] [phone] Atrial flutter with rapid ventricular response (H); Elevated troponin; Blood creatinine increased compared with prior measurement Discharge Disposition: Home or Self Care Social History Tobacco Use Types Packs/Day Years Used Date Smoking Tobacco: Never Alcohol Use Standard Drinks/Week Comments Yes 0 (1 standard drink = 0.6 oz pur e alcohol) Adolescent Education Answer Date Record ed Getting School Help Needed Not on file 06/09 Sex and Gender Information Value Date Recorded Sex Assigned at Male 09/28/2023 2:19 PM NAPHTHALENE OPERATOR Gender Identity Male 09/28/2023 2:19 PM NAPHTHALENE OPERATOR Sexual Orientation Straight 09/28/2023 2: 19 PM NAPHTHALENE OPERATOR documented as of this encounter Last Filed Vital Signs Vital Sign Reading Time Taken Comments Blood Pressure 126/96 10/01/2023 2:55 PM NAPHTHALENE OPERATOR Pulse 116 10/01/2023 2:55 PM NAPHTHALENE OPERATOR Temperature 36.4 ??C (97.6 ??F) 10/01/2023 10:[address] Respiratory Rate 19 10/01/2023 2:55 PM NAPHTHALENE OPERATOR Oxygen Saturation 98% 10/01/2023 2:55 PM NAPHTHALENE OPERATOR Inhaled Oxygen Concentration - - Weight - - Height - - Body Mass Index - - documented in this encounter Discharge Instructions * Discharge Instructions* Angi Webber MD - 10/01/2023 2:43 PM NAPHTHALENE OPERATOR Continue Xarelto. Refill sent to [facility] pharmacy. Continue all of your current medications but we will add an additional tablet of atenolol to doubleyour dose. This should help control your heart rate which may help with some of your shortness of breath and fatigue. Make sure you are staying well rested and well-hydrated. Follow-up with your primary care provider in addition to Dr. Klein. Keep all of your appointments as scheduled. Return immediately if you have worsening chest pain, shortness of breath, or any other new or concerning symptoms. THALENE OPERATOR * Attachments The following attachments cannot be sent through Care Everywhere. * Cardioversion: General Info (Japanese) * Atrial Flutter (Japanese) documented in this encounter Medications at Time of Discharge Medication Sig Dispensed Refills Start Date End Date gabapentin (NEURONTIN) 100 MG capsule Take 100 mg by mouth at bedtime lidocaine (LIDODERM) 5 % patch Place 1 patch onto the skin daily as needed for moderate pain (spasms) Applies to chest/shoulder/neck, also to feet losartan (COZAAR) 100 MG tablet Take 100 mg by mouth daily metFORMIN (GLUCOPHAGE XR) 500 MG 24 hr tablet Take 500 mg by mouth every morning 06/06/2023 mirabegron (MYRBETRIQ) 50 MG 24 hr tablet Take 50 mg by mouth daily 05/07/2023 nitroGLYcerin (NITROSTAT) 0.4 MG sublingual tabletIndications:Atyp ical chest pain For chest pain place 1 tablet under the tongue every 5 minutes for 3 doses. If symptoms persist 5 minutes after 1st dose call 911. 20 tablet 3 09/23/2023 rivaroxaban ANTICOAGULANT (XARELTO) 20 MG TABS tabletIndications:Atri al flutter, unspecified type (H),Paroxysmal atrial flutter (H) Take 1 tablet (20 mg) by mouth daily (with dinner) 90 tablet 3 09/30/2023 ACCU-CHEK GUIDE test strip USE STRIP TO CHECK GLUCOSE TWICE DAILY DIRECTED 09/05/2023 10/14/2023 atenolol (TENORMIN) 50 MG tablet Take 1 tablet (50 mg) by mouth daily for 30 days 30 tablet 10/01/2023 10/16/2023 atenolol-chlorthalidon e (TENORETIC) 50-25 MG tablet Take 1 tablet by mouth every morning 10/16/2023 INSULIN GLARGINE 100 UNIT/ML pen Inject Subcutaneous at bedtime 10/10/23: 82 units 10/11/23: 60 units 10/12/23: 50 units 10/13/23: 50 units 10/26/2022 10/16/2023 predniSONE (DELTASONE) 20 MG tablet Take 10 mg by mouth daily 10/14/2023 rivaroxaban ANTICOAGULANT (XARELTO) 20 MG TABS tablet Take 1 tablet (20 mg) by mouth daily (with dinner) for 30 days 30 tablet 10/01/2023 10/16/2023 rosuvastatin (CRESTOR) 40 MG tabletIndications:Calc ification of coronary artery Take 1 tablet (40 mg) by mouth at bedtime 90 tablet 3 09/23/2023 10/16/2023 documented as of this encounter ED Notes * Nohemi Chappell RN - 10/01/2023 4:53 PM CST AVS reviewed. THALENE OPERATOR * Cassidy Restrepo - 10/01/2023 11:32 AM CST Placed Pt. on monitor (5-lead continous ECG, pulse ox, BP cuff). THALENE OPERATOR * Aubrie Goldstein RN - 10/01/2023 10:28 AM CST Pt sent here from an echo, unsure why pt sent here. Hx aflutter. Reports intermittent CP and SOB for a few weeks. ABC intact. THALENE OPERATOR * Angi Webber MD - 10/01/2023 10:27 AM CST History Chief Complaint: Chest Pain and Shortness of Breath The history is provided by the patient. Ilan Alaniz is an 83 year old male with hypertension and recently diagnosed atrial flutter on Xarelto who presents with his for evaluation of chest pain and shortness of breath. He has had several weeks of fatigue and shortness of breath with exertion. He has had several workups resulting in the diagnosis of atrial flutter and order for outpatient echocardiogram. This was done today and he was reportedly referred to the emergency department to look for infection or other causes of flutter. He has not had fever, cough, and dysuria but he has had some urinary incontinence whichis a new issue for him. He denies palpitations or chest pain. Of note, he has cardiology consultation 10/14/2023 and CAIN with cardioversion 10/15/2023. Otherwise of note he has had recent constipation so he took a stool softener, MiraLAX, and a glass of prune juice last night with bowel movements today. His also notes he has had diaphoresis the last couple of days but she has not checked his temperature. Independent Historian: As above Review of External Notes: I reviewed [facility] ED note from 09/12/23. Patient referred to cardiology. I reviewed supervisor shipping room note from 09/23/23. Patient saw Dr. Klein. He was started on Xarelto and ordered an echo and a Holter monitor. Medications: Tenoretic Gabapentin Cozaar Metformin Myrbetriq Nitrostat Xarelto Crestor Ziac Percocet Glipizide Zocor Ambien Fosamax Thorazine Cleocin Lunesta Indocin Sanctura Norvasc Past Medical History: Hypertension Hypertrophy of prostate with urinary obstruction and other lower urinary tract symptoms Melanoma in situ of scalp Type 2 diabetes Thyroid nodule Hammer toe Prostate cancer Bowel obstruction Peripheral neuropathy Primary malignant neoplasm of prostate Atrial flutter Past Surgical History: Cholecystectomy Appendectomy Lysis of adhesions for bowel obstruction x2 Tonsillectomy and adenoidectomy Bilateral inguinal hernia repair with mesh Excision of melanoma, left neck Prostatectomy Bunionectomy Excision of left ear lesion Left Kelman phacoemulsification IOL implant Left first metatarsal distal chevron osteotomy with lateral soft tissue release Pelvic lymph node dissection and radical retropubic prostatectomy with left Physical Exam Patient Vitals for the past 24 hrs: BP Temp Temp src Pulse Resp SpO2 10/01/23 1203 116/56 -- -- 108 23 100 % 10/01/23 1138 114/70 -- -- 106 19 100 % 10/01/23 1132 108/85 -- -- 113 20 100 % 10/01/23 1031 120/59 97.6 ??F (36.4 ??C) Temporal 95 18 99 % Physical Exam General: Well-developed and well-nourished. Well appearing elderly man. Cooperative. Head: Atraumatic. Eyes: Conjunctivae, lids, and sclerae are normal. ENT: Normal nose. Moist mucous membranes. Neck: Supple. Normal range of motion. CV: Intermittently tachycardic rate and irregularly irregular rhythm. Normal heart sounds with no murmurs, rubs, or gallops detected. Resp: No respiratory distress. Clear to auscultation bilaterally without decreased breath sounds, wheezing, rales, or rhonchi. GI: Soft. Non-distended. Non-tender. MS: Normal ROM. No bilateral lower extremity edema. Skin: Warm. Non-diaphoretic. No pallor. Neuro: Awake. A&Ox3. Normal strength. Psych: Normal mood and affect. Normal speech. Vitals reviewed. Emergency Department Course EKG Indication: chest pain and shortness of breath Time: 1046 Rate 128 bpm. QRS duration 84. QT/QTc 278/405. Atrial flutter with variable AV block. ST & T wave abnormality, consider lateral ischemia. No acute ST changes. Atrial flutter replaced sinus rhythm as compared to prior, dated 08/16/23. Laboratory: Labs Ordered and Resulted from Time of ED Arrival to Time of ED Departure BASIC METABOLIC PANEL - Abnormal Result Value Sodium 134 (*) Potassium 4.4 Chloride 95 (*) Carbon Dioxide (CO2) 27 Anion Gap 12 Urea Nitrogen 32.9 (*) Creatinine 1.46 (*) GFR Estimate 47 (*) Calcium 9.0 Glucose 276 (*) TROPONIN T, HIGH SENSITIVITY - Abnormal Troponin T, High Sensitivity 28 (*) ROUTINE UA WITH MICROSCOPIC REFLEX TO CULTURE - Abnormal Color Urine Yellow Appearance Urine Clear Glucose Urine 200 (*) Bilirubin Urine Negative Ketones Urine Negative Specific [place] Urine 1.028 Blood Urine Negative pH Urine 5.0 Protein Albumin Urine 20 (*) Urobilinogen Urine Normal Nitrite Urine Negative Leukocyte Esterase Urine Negative Mucus Urine Present (*) RBC Urine <1 WBC Urine 2 Hyaline Casts Urine 15 (*) CBC WITH PLATELETS AND DIFFERENTIAL - Abnormal WBC Count 13.8 (*) RBC Count 4.37 (*) Hemoglobin 14.0 Hematocrit 41.4 MCV 95 MCH 32.0 MCHC 33.8 RDW 13.0 Platelet Count 282 % Neutrophils 85 % Lymphocytes 8 % Monocytes 7 % Eosinophils 0 % Basophils 0 % Immature Granulocytes 0 NRBCs per 100 WBC 0 Absolute Neutrophils 11.7 (*) Absolute Lymphocytes 1.1 Absolute Monocytes 0.9 Absolute Eosinophils 0.0 Absolute Basophils 0.0 Absolute Immature Granulocytes 0.1 Absolute NRBCs 0.0 MAGNESIUM - Normal Magnesium 1.7 Emergency Department Course & Assessments: Independent Interpretation (X-rays, CTs, rhythm strip): Not applicable Assessments/Consultations/Discussion of Management or Tests: ED Course as of 10/01/23 1444 SatOct 01, 2023 114 I obtained history and examined the patient as noted above. [address] Covarrubias from cardiology. [address] with no hypoxia, chest pain, or shortness of breath. 1418 I spoke with the patient and his regarding findings and plan as per Dr. Covarrubias. Social Determinants of Health affecting care: Supportive and established primary care. Disposition: Care of the patient was transferred to my colleague, Dr. Zheng pending repeat troponin. Impression & Plan Medical Decision Making: Ilan is an 83 year old man with recent diagnosis of atrial flutter on Xarelto who presents with 7 weeks of fatigue and dyspnea on exertion for which he has been evaluated the emergency department before and seen cardiology. He had a transthoracic echocardiogram today and was referred to the emergency department. The patient is uncertain why he was referred here and his believes he was referred to look for infection or other causes of flutter. He does not describe any new symptoms remarking his concerns have been present for nearly 2 months. He is well-appearing though intermittently tachycardic with irregularly irregular rhythm. EKG confirms this to be atrial flutter with RVR. Initial troponin is elevated at 28. I think this is possibly related to his uncontrolled rate and is similar to values from over a month ago. Repeat is pending at the end of my shift. He does not have significant electrolyte derangements. Creatinine is mildly increased from his prior value of 1.2 at 1.46. He does have leukocytosis of 13.8. This is actually improved from prior value and he does not describe specific infectious symptoms. Urinalysis is without UTI. I discussed the patient's case with Dr. Covarrubias, cardiology, who felt the patient should have better rate control with recommendation to increase atenolol to 100 mg/day. I think this is a very reasonable option. The patient was ambulatory in the emergency department and had no hypoxia, chest pain, ordyspnea. As such, he is appropriate for discharge after repeat troponin ensures that it is not upward trending. I reviewed this plan in detail with the patient and his and answered several questions. They understand to continue Xarelto which I refilled. They understand increase of atenolol andfollowing up with primary care and cardiology as scheduled. Indications for return reviewed. Amenable to discharge after troponin has resulted. The patient was endorsed to my partner, Dr. Zheng. Diagnosis: ICD-10-CM 1. Atrial flutter with rapid ventricular response (H) I48.92 2. Elevated troponin R79.89 3. Blood creatinine increased compared with prior measurement R79.89 Discharge Medications: New Prescriptions ATENOLOL (TENORMIN) 50 MG TABLET Take 1 tablet (50 mg) by mouth daily for 30 days RIVAROXABAN ANTICOAGULANT (XARELTO) 20 MG TABS TABLET Take 1 tablet (20 mg) by mouth daily (with dinner) for 30 days Scribe Disclosure: ILA Smith JORDON, am serving as a scribe at 11:27 AM on 10/01/2023 to document services personally performed by Angi Webber MD based on my observations and the provider's statements to me. 10/01/2023 Angi Webber MD Dixson, Kylie S, MD 10/13/23 1020 THALENE OPERATOR documented in this encounter Plan of Treatment Upcoming Encounters Date Type Department Care Team (Late st Contact Info) Description 05/14/2024 12:30 PM CDT Office Visit [facility] [address] [place] [phone] Gail Post MD [address] [place], [place] [phone] Anushka Carrasquillo MD [address] [place] [address] documented as of this encounter Procedures Procedure Name Priority Date/Time Associated Diagnosis Comments TROPONIN T, HIGH SENSITIVITY STAT 10/01/2023 3:29 PM NAPHTHALENE OPERATOR ROUTINE UA WITH MICROSCOPIC REFLEX TO CULTURE STAT 10/01/2023 1:33 PM NAPHTHALENE OPERATOR TROPONIN T, HIGH SENSITIVITY STAT 10/01/2023 1:23 PM NAPHTHALENE OPERATOR CBC WITH PLATELETS AND DIFFERENTIAL STAT 10/01/2023 12:24 PM NAPHTHALENE OPERATOR CBC WITH PLATELETS & DIFFERENTIAL STAT 10/01/2023 12:24 PM NAPHTHALENE OPERATOR MAGNESIUM STAT 10/01/2023 12:24 PM NAPHTHALENE OPERATOR BASIC METABOLIC PANEL STAT 10/01/2023 12:24 PM NAPHTHALENE OPERATOR EKG 12-LEAD, TRACING ONLY STAT 10/01/2023 10:46 AM NAPHTHALENE OPERATOR documented in this encounter Results * (ABNORMAL) Troponin T, High Sensitivity (10/01/2023 3:29 PM NAPHTHALENE OPERATOR) Troponin T, High Sensitivity 28(H) <=22 ng/L 10/01/2023 4:10 PM NAPHTHALENE OPERATOR [facility] Comment: Either a High Sensitivity [...] RIGHT HAND / Unknown Venipuncture / Unknown 10/01/2023 3:29 PM NAPHTHALENE OPERATOR 10/01/2023 3:48 PM NAPHTHALENE OPERATOR Dar Zheng MD LAB - BLOOD ORDERABL ES LABORATORY [facility] [address] [facility] Lab (1st floor, no room number) [place] [address], [facility] [phone] * (ABNORMAL) UA with Microscopic reflex to Culture (10/01/2023 1:33 PM NAPHTHALENE OPERATOR) Color Urine Yellow Colorless, Straw, Light Yellow, Yellow 10/01/2023 1:51 PM NAPHTHALENE OPERATOR LABORATORY Appearance Urine Clear Clear 10/01/19 1:51 PM NAPHTHALENE OPERATOR LABORATORY Glucose Urine 200(A) Negative mg/dL 10/01/2023 1:51 PM NAPHTHALENE OPERATOR LABORATORY Bilirubin Urine Negative Negative 1:51 PM NAPHTHALENE OPERATOR LABORATORY Ketones Urine Negative Negative mg/dL 10/01/2023 1:51 PM NAPHTHALENE OPERATOR LABORATORY Specific [place] Urine 1.028 1.003 - 1.035 10/01/2023 1:51 PM NAPHTHALENE OPERATOR LABORATORY Blood Urine Negative Negative 10/01/2023 1:51 PM NAPHTHALENE OPERATOR LABORATORY pH Urine 5.0 5.0 - 7.0 10/01/2023 1:51 PM NAPHTHALENE OPERATOR LABORATORY Protein Albumin Urine 20(A) Negative mg/dL 10/01/2023 1:51 PM NAPHTHALENE OPERATOR LABORATORY Urobilinogen Urine Normal Normal, 2.0 mg/dL 10/01/2023 1:51 PM NAPHTHALENE OPERATOR LABORATORY Nitrite Urine Negative Negative 10/01/2023 1:51 PM NAPHTHALENE OPERATOR LABORATORY Leukocyte Esterase Urine Negative Negative 10/01/2023 1:51 PM NAPHTHALENE OPERATOR LABORATORY Mucus Urine Present(A) None Seen /LPF 10/01/2023 1:51 PM NAPHTHALENE OPERATOR LABORATORY RBC Urine <1 <=2 /HPF 10/01/2023 1:51 PM NAPHTHALENE OPERATOR LABORATORY WBC Urine 2 <=5 /HPF 10/01/2023 1:51 PM NAPHTHALENE OPERATOR LABORATORY Hyaline Casts Urine 15(H) <=2 /LPF 10/01/2023 1:51 PM NAPHTHALENE OPERATOR LABORATORY Urine MID-STREAM URINE SPECIMEN / Unknown Non-blood Collection / Unknown 10/01/2023 1:33 PM NAPHTHALENE OPERATOR 10/01/2023 1:42 PM NAPHTHALENE OPERATOR Narrative LABORATORY - 10/01/2023 1:51 PM NAPHTHALENE OPERATOR Urine Culture not indicated Angi Webber MD LAB - URINE ORDERABL ES LABORATORY [facility] [address] [facility] Lab (1st floor, no room number) [place] [address], [facility] [phone] * (ABNORMAL) Troponin T, High Sensitivity (10/01/2023 1:23 PM NAPHTHALENE OPERATOR) [facility] Troponin T, High Sensitivity 28(H) <=22 ng/L 10/01/2023 1:50 PM NAPHTHALENE OPERATOR [facility] Comment: Either a High Sensitivity [...] UPPER LIMB / Unknown Venipuncture / Unknown 10/01/2023 1:23 PM NAPHTHALENE OPERATOR 10/01/2023 1:27 PM NAPHTHALENE OPERATOR Angi Webber MD LAB - BLOOD ORDERABL ES [facility]AT[facility] [address] [facility] Lab (1st floor, no room number) [place] [address], [facility] [phone] * (ABNORMAL) CBC with platelets and differential (10/01/2023 12:24 PM NAPHTHALENE OPERATOR) Pathologist [facility] WBC Count 13.8(H) 4.0 - 11.0 10e3/uL 10/01/2023 12:29 PM NAPHTHALENE OPERATOR [facility] RBC Count 4.37(L) 4.40 - 5.90 10e6/uL 10/01/2023 12:29 PM NAPHTHALENE OPERATOR [facility] Hemoglobin 14.0 13.3 - 17.7 g/dL 10/01/2023 12:29 PM NAPHTHALENE OPERATOR [facility] Hematocrit 41.4 40.0 - 53.0 % 10/01/2023 12:29 PM NAPHTHALENE OPERATOR [facility] MCV 95 78 - 100 fL 10/01/2023 12:29 PM NAPHTHALENE OPERATOR [facility] MCH 32.0 26.5 - 33.0 pg 10/01/2023 12:29 PM NAPHTHALENE OPERATOR [facility] MCHC 33.8 31.5 - 36.5 g/dL 10/01/2023 12:29 PM NAPHTHALENE OPERATOR [facility] RDW 13.0 10.0 - 15.0 % 10/01/2023 12:29 PM NAPHTHALENE OPERATOR [facility] Platelet Count 282 150 - 450 10e3/uL 10/01/2023 12:29 PM NAPHTHALENE OPERATOR [facility] % Neutrophils 85 % 10/01/2023 12:29 PM NAPHTHALENE OPERATOR [facility] % Lymphocytes 8 % 10/01/2023 12:29 PM NAPHTHALENE OPERATOR [facility] % Monocytes 7 % 10/01/2023 12:29 PM NAPHTHALENE OPERATOR [facility] % Eosinophils 0 % 10/01/2023 12:29 PM NAPHTHALENE OPERATOR [facility] % Basophils 0 % 10/01/2023 12:29 PM NAPHTHALENE OPERATOR [facility] % Immature Granulocytes 0 % 10/01/2023 12:29 PM NAPHTHALENE OPERATOR [facility] NRBCs per 100 WBC 0 <1 /100 024 12:29 PM NAPHTHALENE OPERATOR [facility] Absolute Neutrophils 11.7(H) 1.6 - 8.3 10e3/uL 10/01/2023 12:29 PM NAPHTHALENE OPERATOR [facility] Absolute Lymphocytes 1.1 0.8 - 5.3 10e3/uL 10/01/2023 12:29 PM NAPHTHALENE OPERATOR [facility] Absolute Monocytes 0.9 0.0 - 1.3 10e3/uL 10/01/2023 12:29 PM NAPHTHALENE OPERATOR [facility] Absolute Eosinophils 0.0 0.0 - 0.7 10e3/uL 10/01/2023 12:29 PM NAPHTHALENE OPERATOR [facility] Absolute Basophils 0.0 0.0 - 0.2 10e3/uL 10/01/2023 12:29 PM NAPHTHALENE OPERATOR [facility] Absolute Immature Granulocytes 0.1 <=0.4 10e3/uL 10/01/2023 12:29 PM NAPHTHALENE OPERATOR [facility] Absolute NRBCs 0.0 10e3/uL 10/01/2023 12:29 PM NAPHTHALENE OPERATOR [facility] Blood STRUCTURE OF LEFT UPPER LIMB / Unknown Venipuncture / Unknown 10/01/2023 12:24 PM NAPHTHALENE OPERATOR 10/01/2023 12:27 PM NAPHTHALENE OPERATOR Angi Webber MD LAB - BLOOD ORDERABL ES [facility] [address] Lab (1st floor, no room number) [place] [address], [facility] [phone] * Magnesium (10/01/2023 12:24 PM NAPHTHALENE OPERATOR) Pathologist [facility] Magnesium 1.7 1.7 - 2.3 mg/dL 10/01/2023 12:50 PM NAPHTHALENE OPERATOR LABORATORY Blood STRUCTURE OF LEFT UPPER LIMB / Unknown Venipuncture / Unknown 10/01/2023 12:24 PM NAPHTHALENE OPERATOR 10/01/2023 12:27 PM NAPHTHALENE OPERATOR Angi Webber MD LAB - BLOOD ORDERABL ES LABORATORY [facility] [address] [facility] Lab (1st floor, no room number) [place] [address], [facility] [phone] * (ABNORMAL) Basic metabolic panel (10/01/2023 12:24 PM NAPHTHALENE OPERATOR) Sodium 134(L) 135 - 145 mmol/L 10/01/2023 12:51 PM NAPHTHALENE OPERATOR LABORATORY Comment:Reference intervals for this test were updated on 05/28/2023 to more accurately reflect our healthy population. There may be differences in the flagging of prior results with similar values performed with this method. Interpretation of those prior results can be made in the context of the updated reference intervals. Potassium 4.4 3.4 - 5.3 mmol/L 10/01/2023 12:51 PM NAPHTHALENE OPERATOR LABORATORY Comment:Specimen slightly he molyzed. The reported potassium value may be falsely elevated. Analysis of a non-hemolyzed specimen (i.e. re-draw) may result in a lower potassium value. Chloride 95(L) 98 - 107 mmol/L 10/01/2023 12:51 PM NAPHTHALENE OPERATOR LABORATORY Carbon Dioxide (CO2) 27 22 - 29 mmol/L 10/01/2023 12:51 PM NAPHTHALENE OPERATOR LABORATORY Anion Gap 12 7 - 15 mmol/L 10/01/2023 12:51 PM NAPHTHALENE OPERATOR LABORATORY Urea Nitrogen 32.9(H) 8.0 - 23.0 mg/dL 10/01/2023 12:51 PM NAPHTHALENE OPERATOR LABORATORY Creatinine 1.46(H) 0.67 - 1.17 mg/dL 10/01/2023 12:51 PM NAPHTHALENE OPERATOR LABORATORY GFR Estimate 47(L) >60 mL/min/1. 73m2 10/01/2023 12:51 PM NAPHTHALENE OPERATOR LABORATORY Calcium 9.0 8.8 - 10.2 mg/dL 10/01/2023 12:51 PM NAPHTHALENE OPERATOR LABORATORY Glucose 276(H) 70 - 99 mg/dL 10/01/2023 12:51 PM NAPHTHALENE OPERATOR LABORATORY Blood STRUCTURE OF LEFT UPPER LIMB / Unknown Venipuncture / Unknown 10/01/2023 12:24 PM NAPHTHALENE OPERATOR 10/01/2023 12:27 PM NAPHTHALENE OPERATOR Angi Webber MD LAB - BLOOD ORDERABL ES LABORATORY [facility] [address] Lab (1st floor, no room number) [place] [address] [phone] * EKG 12 lead (10/01/2023 10:46 AM NAPHTHALENE OPERATOR) Systolic Blood Pressure mmHg RADIOLOGY RESULTS Diastolic Blood Pressure mmHg RADIOLOGY RESULTS Ventricular Rate 128 BPM RAD IOLOGY RESULTS Atrial Rate 315 BPM RADIOLOG Y RESULTS SC Interval ms RADIOLOG Y RESULTS QRS Duration 84 ms RADIOLO GY RESULTS QT 278 ms RADIOLOGY RESULTS QTc 405 ms RADIOLOGY RESULTS P [place] degrees RADIOLOGY RESULTS R AXIS -22 degrees RADIOLOGY RESULTS T [place] 125 degrees RADIOLOGY RESULTS Interpretation ECG Atrial flutter with variable A-V block ST & T wave abnormality, consider lateral ischemia Abnormal ECG When compared with ECG of 21-AUG-2023 09:46, Atrial flutter has replaced Sinus rhythm Vent. rate has increased BY ??59 BPM Questionable change in QRS axis ST no longer depressed in Inferior leads ST now depressed in Lateral leads T wave inversion now evident in Anterolateral leads Confirmed by - EMERGENCY ROOM, PHYSICIAN ([id number]), editor news FOX ZARAGOZA ([id number]) on 10/01/2023 11:35:57 AM RADIOLOGY RESULTS 10/01/2023 10:4 6 AM NAPHTHALENE OPERATOR 10/01/2023 11:35 AM NAPHTHALENE OPERATOR Nasreen Faust DO ECG ORDERABLES RADIOLOGY RESULTS documented in this encounter Visit Diagnoses Diagnosis Atrial flutter with rapid ventricular response (H) Atrial flutter Elevated troponin Other abnormal blood chemistry Blood creatinine increased compared with prior measurement documented in this encounter Care Teams Data Warehouse Architect Relationship Specialty [place] [id number] [place] [address] PCP - General Family Practice 07/21/19 10/09/23 Nicanor Klein MD [address] [place] [id number] Cardiovascular Disease 09/16/23 Nicanor Klein MD [address] [place] [id number] Cardiovascular Disease 09/16/23 Nicanor Klein MD [address] [place] [id number] Assigned Heart and Vascular Provider 09/26/23 documented as of this encounter
--- OUTSIDE RECORDS SUMMARY | 2024-01-08 07:17 | XMS_ITS | Encounter Summary ---
Author Name Unknown Organization [facility] Address [address] [place] [address]. [place] [address] Care Team Providers Care Gas Analyst Name Role Phone Edwige Negrete MD Primary Care Provider [phone] Nicanor Klein MD Unavailable Nicanor Klein MD Unavailable Nicanor Klein MD Unavailable Encounter Details Date Type Department Care Team (Latest Contact Info) Description 10/01/2023 Travel Social History Tobacco Use Types Packs/Day Years Used Date Smoking Tobacco: Never Alcohol Use Standard Drinks/Week Comments Yes 0 (1 standard drink = 0.6 oz pur e alcohol) Adolescent Education Answer Date Record ed Getting School Help Needed Not on file 06/09 Sex and Gender Information Value Date Recorded Sex Assigned at Male 09/28/2023 2:19 PM APPLICATION PACKAGING CONSULTANT Gender Identity Male 09/28/2023 2:19 PM APPLICATION PACKAGING CONSULTANT Sexual Orientation Straight 09/28/2023 2: 19 PM APPLICATION PACKAGING CONSULTANT documented as of this encounter Plan of Treatment Upcoming Encounters Date Type Department Care Team (Late st Contact Info) Description 05/14/2024 12:30 PM CDT Office Visit [facility] [address] [place] [address] Gail Post MD [address] [place] [address] Anushka Carrasquillo MD [address] [facility] [address] [place], [place] [id number] documented as of this encounter Visit Diagnoses Not on filedocumented in this encounter Care Teams Gas Analyst Relationship Specialty Start [place] [address] [place] [address] PCP - General Family Practice 07/21/19 10/09/23 Nicanor Klein MD [address] [facility] [address] [place] [address] Cardiovascular Disease 09/16/23 Nicanor Klein MD [address] [facility] [address] [place] [address] Cardiovascular Disease 09/16/23 Nicanor Klein MD [address] [facility] [address] [place] [id number] Assigned Heart and Vascular Provider 09/26/23 documented as of this encounter
--- OUTSIDE RECORDS SUMMARY | 2024-01-08 07:17 | XMS_ITS | Clinical Summary ---
Author Name Unknown Organization [facility] Address [address] [place] [address] Care Team Providers Care Recruiting Operations Consultant Name Role Phone Elsewhere, Pcp Primary Care Provider Unavailabl e Source Comments Patient records contain information from all sites at [facility]. For routine questions regarding patient records, call [phone] during business hours, M-F 8:00 AM - 5:00 PM Central Time. Record requests for emergency care only can be directed to [phone] at any time.[facility] Allergies Active Allergy Reactions Criticality Noted Date Comments Cat Dander Other (see comments) 02/11/2014 sneezing Medications Medication Sig Dispensed Refills Start Date End Date Status acetaminophen (ACETAMINOPHEN EXTRA STRENGTH) 500 mg tablet Take 1 tablet by mouth as needed. pain 02/11/2014 Active oxymetazoline HCl (AFRIN, OXYMETAZOLINE, NASAL) Administer 1 spray into affected nostril(s) at bedtime as needed. Per nostril for congestion as needed 02/11/2014 Active naproxen sodium (ALEVE) 220 mg tablet Take 1 tablet by mouth as needed. pain 02/11/2014 Active clindamycin (CLEOCIN T) 1 % external solution Apply topically as needed. 02/11/2014 Active glipiZIDE (GLUCOTROL XL) 5 mg 24 hr tablet Take 1 tablet by mouth daily. 02/11/2014 Active acetaminophen/dip henhydramine (DIPHENHYDRAMINE- ACETAMINOPHEN ORAL) Take 1 tablet by mouth at bedtime as needed. 25 mg/500 mg sleep 02/11/2014 Active vit A/vit C/vit E/zinc/copper (PRESERVISION AREDS ORAL) Take 1 tablet by mouth 2 (two) times a day. 06/15/2013 Active cholecalciferol (VITAMIN D3) 2,000 Unit tablet Take 1 tablet by mouth daily. 02/11/2014 Active insulin glargine 100 unit/mL (3 mL) injection Inject 30 Units under the skin daily. 08/26/2015 Active losartan (COZAAR) 100 mg tablet Take 100 mg by mouth daily. Active eszopiclone (LUNESTA) 2 mg tablet Take 2 mg by mouth at bedtime. 08/06/2022 Active lidocaine (LIDODERM) 5 % Place 1 patch on the skin as needed. Apply to foot Active peg 400-propylene glycol (SYSTANE) 0.4-0.3 % ophthalmic solution Administer 1 drop into both eyes 2 (two) times a day. Active melatonin 5 mg tablet Take 5 mg by mouth. Prefers lunesta Active blood sugar diagnostic strips (Accu-Chek Negin Plus test strp) 4 test. 12/23/2020 Active trospium (SANCTURA XR) 60 mg 24 hr capsule Take 1 capsule (60 mg total) by mouth every morning before breakfast. 90 capsule 3 04/25/2023 04/24/2024 Active Additional Information Patient not taking.Reported on 10/22/2023 mirabegron (Myrbetriq) 50 mg 24 hr tablet Take 1 tablet (50 mg total) by mouth daily. 90 tablet 3 05/07/2023 Active clindamycin (CLEOCIN T) 1 % lotion Apply 1 Application topically as needed. Active metFORMIN XR (GLUCOPHAGE-XR) 500 mg 24 hr tablet Take 500 mg by mouth daily with breakfast. 06/06/2023 Active BD Ultra-Fine Short Pen Needle 31 gauge x 5/16 needle daily. 03/23/2023 Active insulin lispro 100 unit/mL injection Inject 1-20 Units under the skin as needed. 10/16/2023 Active metoprolol succinate (TOPROL-XL) 25 mg 24 hr tablet Take 1 tablet by mouth daily. 10/17/2023 Active rivaroxaban (XARELTO) 20 mg tablet Take 20 mg by mouth daily with dinner. 09/30/2023 Active gabapentin (NEURONTIN) 100 mg capsule Take 100 mg by mouth at bedtime. Active nitroglycerin (NITROSTAT) 0.[address] 0.4 mg under the tongue every 5 (five) minutes as needed. 09/23/2023 Active oxyCODONE (ROXICODONE) 5 mg immediate release tablet Take 5 mg by mouth as needed. Not taking currently 08/16/2023 Active rosuvastatin (CRESTOR) 40 mg tablet Take 1 tablet by mouth at bedtime. 10/16/2023 Active Accu-Chek Guide Glucose Meter mis USE TO TEST BLOOD SUGARS TWICE DAILY 09/06/2023 Active metFORMIN XR (GLUCOPHAGE-XR) 500 mg 24 hr tablet Take 500 mg by mouth daily. 06/06/2023 Active cqgxltic-lcd-vezj -FA-vit K-lut 8 mg iron-400 mcg-50 mcg tablet Take 1 tablet by mouth daily. Active magnesium oxide (MagOx) 400 mg (241.3 mg magnesium) tablet Take 400 mg by mouth daily. Active amiodarone (PACERONE) 200 mg tablet Take 1 tablet (200 mg total) by mouth 2 (two) times a day for 7 days, THEN 1 tablet (200 mg total) daily. 194 tablet 10/31/2023 05/04/2024 Active LORazepam (ATIVAN) 1 mg tablet Take 1 mg by mouth 2 (two) times a day as needed. 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 on 04/03/2018 Encounters Date Type Department Care Team Description 12/11/2023 Orders Only Department of Cardiovascular Medicine in [place], [place] [address] [place] [address] Jean Claude Kimball M.D. 12/10/2023 3:28 PM CDT - 12/10/2023 11:59 PM CDT Hospital Encounter Department of Laboratory Medicine and Pathology, [facility], in [place], [place] [address] [place] [address] Jean Claude Kimball M.D. Fibrillation Atrial (AF) NOS Discharge Disposition: Home or Self Care 12/10/2023 2:00 PM CDT Office Visit Department of Cardiovascular Medicine in [place], [place] [address] [place] [phone] Jean Claude Kimball M.D. Fibrillation Atrial (AF) NOS (Primary Dx) 12/10/2023 11:30 AM CDT Office Visit Department of Urology in [place], [place] [address] [place] [phone] Rachel Guillory M.D. Urgency Urinary (Primary Dx) 12/10/2023 10:45 AM CDT Procedure visit Department of Urology in [place], [place] [address] [place] [phone] Chanel Concepcion M.D., M.B.A. Teri Coto, R.N. Symptom Urinary; Nocturia 12/06/2023 10:37 AM CDT - 12/06/2023 11:59 PM CDT Hospital Encounter Department of Cardiovascular Diseases in [place], [place] [address] [place] [phone] Jean Claude Kimball M.D. Atrial Fibrillation Other Persistent (HCC) Discharge Disposition: Home or Self Care 11/26/2023 Clinical Communication Department of Cardiovascular Medicine in [place], [place] [address] [place] [address] Jean Claude Kimball M.D. Appointment 11/21/[address] [address] Merrill Mejia M.D. Tremor (Primary Dx); Amnesia; Diabetes Mellitus Type 2 With Diabetic Neuropathy (HCC) 10/24/2023 11:57 AM DATA ENGINEER - 10/24/2023 11:59 PM DATA ENGINEER Hospital Encounter Department of Cardiovascular Diseases in [place], [place] [address] [place] [address] Jean Claude Kimball M.D. Atrial Fibrillation Other Persistent (HCC) Discharge Disposition: Home or Self Care 10/23/2023 12:30 PM DATA ENGINEER Diagnostic Division of Pulmonary Medicine in [place], [place] [address] [place] [phone] Jean Claude Kimball M.D. Atrial Fibrillation Other Persistent (HCC) 10/23/2023 11:38 AM DATA ENGINEER - 10/23/2023 11:59 PM DATA ENGINEER Hospital Encounter Department of Laboratory Medicine and Pathology, [facility] in [place], [place] [address] [place] [phone] Jean Claude Kimball M.D. Atrial Fibrillation Other Persistent (HCC); Fatty Liver Discharge Disposition: Home or Self Care 10/23/2023 11:20 AM DATA ENGINEER - 10/23/2023 11:37 AM DATA ENGINEER Hospital Encounter Department of Radiology, [facility] in [address] [phone] Jean Claude Kimball M.D. Atrial Fibrillation Other Persistent (HCC) Discharge Disposition: Home or Self Care 10/23/2023 10:55 AM DATA ENGINEER Ancillary Procedure Department of Radiology in [address] [phone] Jean Claude Kimball M.D. Atrial Fibrillation Other Persistent (HCC) 10/23/2023 9:00 AM [facility] Comprehensive Visit Department of Cardiovascular Medicine in [address] [phone] Jean Claude Kimball M.D. Atrial Fibrillation Other Persistent (HCC) (Primary Dx); Fatty Liver 10/22/2023 4:45 PM [facility] Clinical Communication Virtual Review in [place], [place] [address] [place] [address] Pre-visit Intake 10/18/2023 3:05 PM DATA ENGINEER - 10/18/2023 11:42 PM DATA ENGINEER Emergency [facility] Emergency Department [address] [place] [phone] Newton Garcia M.D. Atrial Fibrillation Unspecified (HCC) (Primary Dx) Discharge Disposition: Home or Self Care from Last 3 Months Immunizations Name Administration Dates Next Due HZV (ZOSTAVAX) 09/02/2010 PPSV23 07/03/2009 Tdap 11/30/2009 Social History Tobacco Use Types Packs/Day Years Used Date Smoking Tobacco: Never Passive Smoke Exposure: Never Smokeless Tobacco: Never Tobacco Cessation:Counseling Given: No Social Connection and Isolat ion Panel [NHANES] Answer Date Recorded In a typical week, how many times do you talk on the phone with family, friends, or neighbors? More than three times a week 01/11/2020 How often do you get togethe r with friends or relatives? Three times a week 01/11/2020 How often do you attend chur ch or faith services? More than 4 times per year 01/11/2020 Do you belong to any clubs o r organizations such as faith groups, unions, fraternal or athletic groups, or [...] and heating? Not hard at all 01/11/2020 [facility]ational Stress Questionnaire Answer Date [...] Sign Reading Time Taken Comments Blood Pressure 134/76 12/10/2023 2:07 PM CDT Pulse 74 12/10/2023 2:07 PM CDT Temperature 36.7 ??C (98.1 ??F) 10/18/2023 3:55 PM CS T Respiratory Rate 15 10/18/2023 11:15 PM DATA ENGINEER Oxygen Saturation 95% 10/18/2023 11:15 PM DATA ENGINEER Inhaled Oxygen Concentration - - Weight 97.8 kg (215 lb 9.8 oz) 10/23/2023 8:50 A M DATA ENGINEER Height 180 cm (5' 10.87) 10/23/2023 8:50 AM DATA ENGINEER Body Mass Index 30.19 10/23/2023 8:50 AM DATA ENGINEER Plan of Treatment Upcoming Encounters Date Type Department Care Team (Latest Contact Info) Description 01/29/2024 10:45 AM CDT Clinical Communication Virtual Review in [place], [place] [address] [place] [address] 02/05/2024 1:00 PM CDT Comprehensive Visit Department of Neurology in [place], [place] [address] [place] [phone] Arturo Barfield M.D. [address] [place] [phone] Health Maintenance Due Date Last Done Comments Depression Screening (Annual PHQ-2) 09/02/2023 Fall Risk Screen (Annual) 09/02/2023 COVID-19 Vaccine (2022-2 4 season) 2023 06/12/2023, 05/14/2022, 01/20/2022, Additional history exists Creatinine Level (Kidney Fun ction Test) 12/09/2024 12/10/2023, 10/18/2023, 10/16/2023, Additional history exists Potassium Level 12/09/2024 12/10/2023, 10/03, 10/16/2023, Additional history exists Sodium Level 12/09/2024 12/10/2023, 10/03, 10/16/2023, Additional history exists DTaP,Tdap,and Td Vaccines (3 - Td or Tdap) 01/01/2030 01/02/2020, 11/30/2009 Pneumococcal vaccine (65+ years) Completed 05/16/2017, 09/17/2009, 07/03/2009 Zoster Vaccines Completed 10/20/2018, 09/2018, 08/18/2018, Additional history exists Influenza Vaccine Completed 05/21/2023, , 05/14/2022, Additional history exists Medical Devices Implanted Type Area Toaster Operator Device Identifier Shelf Expiration Date Model / Serial / Lot Screw Frs 22mm [id number] - Gomez [id number] Implanted:Qty: 1 on 09/05/2011 Hardware e.g. pins/screws /rods BioMet Description:Device Manufactu DearJane - [employer] Device Status Text - [id number]. K-Wire-Ss 4 Smooth .035 - Gomez [id number] Implanted:Qty: 1 on 09/05/2011 Hardware e.g. pins/screws /rods Sanborn Description:Device Manufactu rer - Sanborn Yuan.. Device Status Text - [id number]. K-Wire-Ss 4 Smooth .062 - Gomez [id number] Implanted:Qty: 2 on 09/05/2011 Hardware e.g. pins/screws /rods Sanborn Description:Device Manufactu rer - Sanborn Yuan.. Device Status Text - [id number]. Mesh Or Patch Mesh or Patch Abdomen Ocular Lens Ocular Lens Bilateral: Eye Description:Cataract surgery Procedures Procedure Name Priority Date/Time Associated Diagnosis Comments THYROID FUNCTION CASCADE, S Routine 12/10/2023 3:41 PM CDT Fibrillation Atrial (AF) NOS HEPATIC FUNCTION PANEL, S Routine 12/10/2023 3:41 PM CDT Fibrillation Atrial (AF) NOS BASIC METABOLIC PANEL, S/P Routine 12/10/2023 3:41 PM CDT Fibrillation Atrial (AF) NOS LA MARY PST VOID RESID US NON IMG Routine 12/10/2023 10:45 AM CDT Symptom Urinary Nocturia LA UROFLOWMETRY CMPLX Routine 12/10/2023 10:45 AM CDT Symptom Urinary Nocturia HOLTER MONITOR - IN CLINIC PROOF SORTER Routine 12/08/2023 11:00 AM CDT Atrial Fibrillation Other Persistent (HCC) (TTE) 2D ECHO DOPPLER COLOR Routine 10/24/2023 1:24 PM DATA ENGINEER Atrial Fibrillation Other Persistent (HCC) D-DIMER, P Routine 10/23/2023 11:54 AM DATA ENGINEER Fatty Liver HEPATIC FUNCTION PANEL, S Routine 10/23/2023 11:54 AM DATA ENGINEER Atrial Fibrillation Other Persistent (HCC) DX CHEST AP OR PA AND LATERAL 2 VIEWS RAD - Routine (most inpatients and all outpatients) 10/23/2023 11:30 AM DATA ENGINEER Atrial Fibrillation Other Persistent (HCC) INTERPRETATION OF OUTSIDE CT ABDOMEN AND OR PELVIS RAD - Routine (most inpatients and all outpatients) 10/23/2023 10:53 AM DATA ENGINEER Atrial Fibrillation Other Persistent (HCC) PUL HOME OVERNIGHT OXIMETRY Routine 10/23/2023 Atrial Fibrillation Other Persistent (HCC) DX CHEST AP OR PA AND LATERAL 2 VIEWS RAD - Semiurgent (Fast; most ED patients; some inpatients) 10/18/2023 8:46 PM DATA ENGINEER TROPONIN T, 2H/6H, 5TH GEN, P Timed 10/18/2023 5:13 PM DATA ENGINEER NT-PRO B-TYPE NATRIURETIC PEPTIDE (BNP), S STAT 10/18/2023 3:27 PM DATA ENGINEER PROTHROMBIN TIME (PT), P STAT 10/18/2023 3:27 PM DATA ENGINEER TROPONIN T, BASELINE, 5TH GEN, P STAT 10/18/2023 3:27 PM DATA ENGINEER THYROID-STIMULATING HORMONE-SENSITIVE (S-TSH) STAT 10/18/2023 3:27 PM DATA ENGINEER CBC WITH DIFFERENTIAL, B STAT 10/18/2023 3:27 PM DATA ENGINEER BASIC METABOLIC PANEL, S/P STAT 10/18/2023 3:27 PM DATA ENGINEER FERRITIN, S Routine 10/18/2023 3:21 PM DATA ENGINEER Atrial Fibrillation Other Persistent (HCC) Fatty Liver ECG STAT 10/18/2023 3:17 PM DATA ENGINEER from Last 3 Months Results * Hepatic Function Panel (12/10/2023 3:41 PM CDT) Only the most recent of2 resultswithin the time period is included. Bilirubin, Total, S 0.5 0.0 - 1.2 mg/dL 12/10/2023 7:29 PM CDT DTL Bilirubin, Direct, S <0.2 0.0 - 0.3 mg/dL 12/10/2023 7:29 PM CDT DTL Aspartate Aminotransferase (AST), S 21 8 - 48 U/L 12/10/2023 7:29 PM CDT DTL Alanine Aminotransferase (ALT), S 28 7 - 55 U/L 12/10/2023 8:16 PM CDT DTL Alkaline Phosphatase, S 62 40 - 129 U/L 12/10/2023 7:29 PM CDT DTL Albumin, S 4.1 3.5 - 5.0 g/dL 12/10/2023 7:29 PM CDT DTL Protein, Total, S 6.3 6.3 - 7.9 g/dL 12/10/2023 7:29 PM CDT DTL Blood (Blood, Venous) 12/10/2023 3:41 PM CDT 12/10/2023 4:09 PM CDT Jean Claude Kimball M.[place] [address] * Thyroid Function [place] (12/10/2023 3:41 PM CDT) Pathologist [facility] TSH, Sensitive 1.6 0.3 - 4.2 mIU/L 12/10/2023 7:29 PM CDT DTL Blood (Blood, Venous) 12/10/2023 3:41 PM CDT 12/10/2023 4:09 PM CDT Jean Claude Kimball M.D. LAB BLOOD ADD-ON Performing Organization Address City/[facility]/[place] [address] * (ABNORMAL) Basic Metabolic Panel (12/10/2023 3:41 PM CDT) Only the most recent of2 resultswithin the time period is included. Potassium, S 4.6 3.6 - 5.2 mmol/L 12/10/2023 7:29 PM CDT DTL Sodium, S 143 135 - 145 mmol/L 12/10/2023 7:29 PM CDT DTL Chloride, S 105 98 - 107 mmol/L 12/10/2023 7:29 PM CDT DTL Bicarbonate, S 25 22 - 29 mmol/L 12/10/2023 7:29 PM CDT DTL Anion Gap 13 7 - 15 12/10/2023 7:29 PM CDT DTL BUN (Blood Urea Nitrogen), S 20 8 - 24 mg/dL 12/10/2023 7:29 PM CDT DTL Creatinine 1.55(H) 0.74 - 1.35 mg/dL 12/10/2023 7:29 PM CDT DTL Estimated GFR (eGFR) 44(L) >=60 mL/min/BSA 12/10/2023 7:29 PM CDT DTL Comment: Estimated GFR calculated using the 2020 CKD_EPI creatinine equation. Calcium, Total, S 9.7 8.8 - 10.2 mg/dL 12/10/2023 7:29 PM CDT DTL Glucose, S 147(H) 70 - 140 mg/dL 12/10/2023 7:29 PM CDT DTL Blood (Blood, Venous) 12/10/2023 3:41 PM CDT 12/10/2023 4:09 PM CDT Jean Claude Kimball M.D. LAB BLOOD ADD-ON [address] [address], [facility] [address] [place] [address] * LA UROFLOWMETRY CMPLX, LA MARY PST VOID RESID US NON IMG (12/10/2023 10:45 AM CDT) Narrative Jaqueline Brady M.D. - 12/10/2023 10:45 AM CDT Jaqueline Brady M.D. ? 12/10/2023 ??1:59 PM URO Uroflow Performed by: Jaqueline Brady M.D. Authorized by: Chanel Concepcion M.D., M.B.A. ?? PROCEDURE DETAILS Calibrated electronic equipment used. Total voided volume (mL): 103 Peak flow (mL/seconds): 13 Average flow (mL/seconds): 6 Voiding time (seconds): 16 Flow pattern: continuous smooth Residual urine (mL): 5 Measured by: ultrasound PRE-PROCEDURE DETAILS Procedure purpose: diagnostic Indications: nocturia COMMENTS Low voided volume limits the diagnostic capabilities of this test. Low peak flow, low PVR Chanel Concepcion M.D., M.B.A. UROLOGY ORDER ANDREA * HOLTER MONITOR - IN CLINIC PROOF SORTER (12/08/2023 11:00 AM CDT) Min Heart Rate 63 bpm INFOB IONIC MOME Max Heart Rate 95 bpm INFOB IONIC MOME Mean Heart Rate 73 bpm INFOBIONIC MOME VE Total Beats 133 count INFOB IONIC MOME VE Percent Beats less than 1 percent INFOBIONIC MOME SVE Total Beats 182 count INFOBIONIC MOME SVE Percent Beats less than 1 percent INFOBIONIC MOME AF Count 0 count INFOBIONIC MOME AF Duration 0 duration INFOBION IC MOME AF [place] 0 percent INFOBIONIC MOME Symptom Count 0 count INFOBI ONIC MOME 12/06/2023 10:4 5 AM CDT Narrative INFOBIONIC MOME - 12/09/2023 10:26 AM CDT 1. The basic rhythm was sinus. The total analyzed time was 1d 23h 29m. The heart rate varied from 63 to 95 bpm. The average HR was 73 bpm. 2. Premature ventricular complexes were noted singly, fused, and in one pair. There were 133 PVCs recorded with a PVC burden of less than 1%. 3. Premature supraventricular complexes were noted singly, non-conducted, in pairs, and in three 3 to 5-beat atrial runs with a maximum heart rate of 110 bpm. There were 182 PACs recorded with a PAC burden of less than 1%. 4. No symptomatic events were noted. Car Packer: DAYANA Rogers /DAYANA Cruz Procedure Note Josias Pinedo M.D. - 12/09/2023 1. The basic rhythm was sinus. The total analyzed time was 1d 23h 29m. Theheart rate varied from 63 to 95 bpm. The average HR was 73 bpm. 2. Premature ventricular complexes were noted singly, fused, and in onepair. There were 133 PVCs recorded with a PVC burden of less than 1%. 3. Premature supraventricular complexes were noted singly, non-conducted,in pairs, and in three 3 to 5-beat atrial runs with a maximum heart rateof 110 bpm. There were 182 PACs recorded with a PAC burden of less than1%. 4. No symptomatic events were noted. Car Packer: DAYANA Rogers /DAYANA Cruz Jean Claude Kimball M.D. CV CARDIAC SERVICES PROCEDURES INFOBIONIC MOME NA * (TTE) 2D ECHO DOPPLER COLOR (10/24/2023 1:24 PM DATA ENGINEER) Ejection Fraction 56 MC CV EIMS Mid-Ascending Aorta 39 MC CV EIMS LV Mass Index 70 MC CV EIMS LV End-Diastolic Diameter 47 MC CV EIMS LV End-Systolic Diameter 33 MC CV EIMS Left ventricular stroke volume index 28 MC CV EIMS Cardiac Output 6.52 MC CV EIMS Cardiac Index 3 MC CV EIMS LV Interventricular Septal Wall Thickness 9 MC CV EIMS LV Posterior Wall Thickness 10 MC CV EIMS LV Relative Wall Thickness 43 MC CV EIMS Tricuspid Annular S? 0.13 MC CV EIMS TR Vmax 2.41 MC CV EIMS RA Pressure 5 MC CV EIMS RV Systolic Pressure 28 MC CV EIMS AV mean gradient 3 MC CV EIMS Aortic valve area 3.51 MC CV EIMS Aortic Valve Dimensionless Index 0.72 MC CV EIMS LA Volume Index 40 MC CV EIMS Aortic Valve Systolic Peak Velocity 1.1 MC CV EIMS Anatomical Region Laterality Modality Echocardiography 10/24/2023 12:1 8 PM DATA ENGINEER Impressions 10/24/2023 1:36 PM DATA ENGINEER LEFT VENTRICLE:Normal left ventricular chamber size. Normal left ventricular wall thickness. Calculated 2-D linear left ventricular ejection fraction 56% with [id number]-[id number] variability. No regional wall motion abnormalities. Indeterminate left ventricular filling pressure. RIGHT VENTRICLE:Mildly enlarged right ventricular chamber size. Mildly reduced right ventricular systolic function. Estimated right ventricular systolic pressure 28 mmHg (right atrial pressure of 5 mmHg). ATRIA:Moderately enlarged left atrial size. Left atrial volume index 40 ml/m2. Strain imaging examination performed to assess left atrial function. Global averaged left atrial biplane longitudinal peak systolic strain is abnormal at 9.0% (normal is greater than 35%). Mildly enlarged right atrial size by visual estimate. CARDIAC VALVES:Trileaflet aortic valve. Sclerotic aortic valve. Trivial aortic valve regurgitation. Mildly thickened mitral valve. Trivial mitral valve regurgitation. Normal pulmonary valve. Normal pulmonary valve systolic velocities. Trivial pulmonary valve regurgitation. Normal tricuspid valve. Mild tricuspid valve regurgitation. OTHER ECHO FINDINGS:Normal inferior vena cava size with normal inspiratory collapse (>50%). Normal mid ascending aorta diameter of 39 mm. No abdominal aortic aneurysm. Normal abdominal aorta Doppler flow pattern. No atrial level shunt by color flow imaging. No intracardiac mass or thrombus, but the left atrial appendage cannot be visualized adequately with transthoracic echo to exclude thrombus in this location. No ??pericardial effusion. Left pleural effusion. For the complete report, see the Order-Level Documents. Narrative 10/24/2023 1:36 PM DATA ENGINEER For the complete report, see the Order-Level Documents. Hemodynamics Heart Rate: 127 BPM Blood Pressure: 136 / 72 mmHg ECG: Atrial fibrillation, BPM 100-140 Final Impressions 1. Echocardiogram performed in the setting of atrial fibrillation with rapid ventricular rate; ??hemodynamics may be inaccurate. 2. Normal left ventricular chamber size, calculated 2-D linear ejection fraction 56% with gnvr-hw-iwll variability. 3. Moderately enlarged left atrial size. 4. Mildly enlarged right ventricular chamber size, mildly reduced systolic function, estimated right ventricular systolic pressure 28 mmHg (right atrial pressure of 5 mmHg). 5. No ??significant valvular heart disease. 6. Normal inferior vena cava size with normal inspiratory collapse (>50%). 7. Left pleural effusion. 8. No ??pericardial effusion. Procedure Note Yennifer Escalona M.D., M.P.H. - 10/24/2023 For the complete report, see the Order-Level Documents. Hemodynamics Heart Rate: 127 BPM Blood Pressure: 136 / 72 mmHg ECG: Atrial fibrillation, BPM 100-140 Final Impressions 1. Echocardiogram performed in the setting of atrial fibrillation withrapid ventricular rate; hemodynamics may be inaccurate. 2. Normal left ventricular chamber size, calculated 2-D linear ejectionfraction 56% with ofef-ni-crwb variability. 3. Moderately enlarged left atrial size. 4. Mildly enlarged right ventricular chamber size, mildly reduced systolicfunction, estimated right ventricular systolic pressure 28 mmHg (rightatrial pressure of 5 mmHg). 5. No significant valvular heart disease. 6. Normal inferior vena cava size with normal inspiratory collapse(>50%). 7. Left pleural effusion. 8. No pericardial effusion. Findings LEFT VENTRICLE:Normal left ventricular chamber size. Normal leftventricular wall thickness. Calculated 2-D linear left ventricularejection fraction 56% with gjqu-ih-gnek variability. No regional wallmotion abnormalities. Indeterminate left ventricular filling pressure. RIGHT VENTRICLE:Mildly enlarged right ventricular chamber size. Mildlyreduced right ventricular systolic function. Estimated right ventricularsystolic pressure 28 mmHg (right atrial pressure of 5 mmHg). ATRIA:Moderately enlarged left atrial size. Left atrial volume index 40ml/m2. Strain imaging examination performed to assess left atrialfunction. Global averaged left atrial biplane longitudinal peak systolicstrain is abnormal at 9.0% (normal is greater than 35%). Mildly enlargedright atrial size by visual estimate. CARDIAC VALVES:Trileaflet aortic valve. Sclerotic aortic valve. Trivialaortic valve regurgitation. Mildly thickened mitral valve. Trivial mitralvalve regurgitation. Normal pulmonary valve. Normal pulmonary valvesystolic velocities. Trivial pulmonary valve regurgitation. Normaltricuspid valve. Mild tricuspid valve regurgitation. OTHER ECHO FINDINGS:Normal inferior vena cava size with normal inspiratorycollapse (>50%). Normal mid ascending aorta diameter of 39 mm. Noabdominal aortic aneurysm. Normal abdominal aorta Doppler flow pattern. Noatrial level shunt by color flow imaging. No intracardiac mass orthrombus, but the left atrial appendage cannot be visualized adequatelywith transthoracic echo to exclude thrombus in this location. Nopericardial effusion. Left pleural effusion. For the complete report, see the Order-Level Documents. Jean Claude Kimball M.D. CV ECHO PROCEDURES * (ABNORMAL) D-Dimer (10/23/2023 11:54 AM DATA ENGINEER) D-Dimer, P 853(H) <=500 ng/mL FEU 10/23/2023 12:33 PM DATA ENGINEER DTL Comment: D-dimer concentrations increase with age. ??For DVT/PE exclusion, in addition to clinical pre-test probability, age-adjusted D-dimer cut-offs are suggested for patients >50 years old. For additional information refer to the D-dimer assay in the Laboratory Test Catalog (LTC) and/or [employer]pert (FIDELINA). ----ADDITIONAL INFORMATION---- D-dimer values less than or equal to 500 ng/mL fibrinogen equivalent units (FEU) may be used in conjunction with clinical pre-test probability to exclude deep vein thrombosis (DVT) and/or pulmonary embolism (PE). Blood (Blood, Venous) 10/23/2023 11:54 AM DATA ENGINEER 10/23/2023 12:18 PM DATA ENGINEER Jean Claude Kimball M.D. LAB BLOOD ADD-ON [facility] [address] [place] [address], [facility] [address] [place] [address] * DX Chest AP or PA and Lateral 2 Views (10/23/2023 11:30 AM DATA ENGINEER) Only the most recent of2 resultswithin the time period is included. Anatomical Region Laterality Modality Chest, Thoracic RST LOS, Tho racic ARZ LOS, Thoracic FLA LOS N/A Digital Radiography Impressions 10/23/2023 11:35 AM DATA ENGINEER Moderate left pleural effusion has decreased minimally in size since 10/18/2023. Very tiny right pleural effusion has also improved. Subsegmental atelectasis left base. Aortic calcification. Calcified granulomas in both lungs. Calcified right hilar node. Slight cardiac enlargement. Narrative 10/23/2023 11:35 AM DATA ENGINEER EXAM: ??DX CHEST AP OR PA AND LATERAL 2 VIEWS Procedure Note Jose Lopez M.D. - 10/23/2023 EXAM: DX CHEST AP OR PA AND LATERAL 2 VIEWS IMPRESSION: Moderate left pleural effusion has decreased minimally in size since02/. Very tiny right pleural effusion has also improved.Subsegmental atelectasis left base. Aortic calcification. Calcifiedgranulomas in both lungs. Calcified right hilar node. Slight cardiac enlargement. Jean Claude [facility] NG PROCEDURES * Interpretation of Outside CT Abdomen and or Pelvis (10/23/2023 10:53 AM DATA ENGINEER) Anatomical Region Laterality Modality Abdomen, Pelvis, Abdominal R ST LOS, Abdominal ARZ LOS, Abdominal FLA LOS, Other N/A Computed Tomography Impressions 10/25/2023 8:06 AM DATA ENGINEER 1. Negative. No acute or suspicious findings. No significant change since 09/30/2013. 2. This OS examination was performed in conjunction with a CT of the chest, which will be re-reported separately if requested. Narrative 10/25/2023 8:06 AM DATA ENGINEER EXAM: ??INTERPRETATION OF OUTSIDE CT ABDOMEN AND OR PELVIS . Outside CT of the abdomen and pelvis with IV contrast dated 09/12/2023. COMPARISON: ??Outside CT 06/16/2023 and [facility] CT 09/30/2013. FINDINGS: ??Liver, pancreas, and adrenals are negative. Cholecystectomy. Calcified splenic granulomas. Multifocal renal parenchymal scarring bilaterally, right more than left. No nephrolithiasis or hydronephrosis. Postoperative changes of prostatectomy and pelvic lymphadenectomy. Bowel is all normal caliber with no obstruction and nothing to indicate active inflammation. Colonic diverticulosis. Calcified atherosclerotic disease of the abdominal aorta, without aneurysm. No ascites. No suspicious lymphadenopathy. Degenerative changes in the spine and hips, with no focal or suspicious bone lesion. This examination was performed in conjunction with a CT of the chest, which will be re-reported separately if requested. Procedure Note Tony Ghotra M.D. - 10/25/2023 EXAM: INTERPRETATION OF OUTSIDE CT ABDOMEN AND OR PELVIS . Outside CT ofthe abdomen and pelvis with IV contrast dated 09/12/2023. COMPARISON: Outside CT 06/16/2023 and [facility] CT 09/30/2013. FINDINGS: Liver, pancreas, and adrenals are negative. Cholecystectomy.Calcified splenic granulomas. Multifocal renal parenchymal scarringbilaterally, right more than left. No nephrolithiasis or hydronephrosis.Postoperative changes of prostatectomy and pelvic lymphadenectomy. Bowel is all normal caliber with no obstruction and nothing to indicateactive inflammation. Colonic diverticulosis. Calcified atherosclerotic disease of the abdominal aorta, withoutaneurysm. No ascites. No suspicious lymphadenopathy. Degenerative changes in thespine and hips, with no focal or suspicious bone lesion. This examination was performed in conjunction with a CT of the chest,which will be re-reported separately if requested. IMPRESSION: 1. Negative. No acute or suspicious findings. No significant change since09/30/2013. 2. This OS examination was performed in conjunction with a CT of thechest, which will be re-reported separately if requested. Jean Claude Kimball M.D. IMG CT PROCEDURES * PUL Home Overnight Oximetry (10/23/2023) 10/23/2023 Impressions [facility] - 10/24/2023 1:58 PM DATA ENGINEER This is an overnight oximetry assumed to have been performed on room air as a completed questionnaire was not returned. ??Mean saturation of 94% with periods of oscillatory desaturation to as low as 82% noted during the study. ??Heart rate tracing suggests an arrhythmia. Impression: ??Abnormal. ??Desaturations concerning for a positional or sleep- related breathing disorder. ??Possible arrhythmia. Physician: Martin Humphries M.D. [id number] Narrative Procedure Note Martin Humphries M.D., Ph.D. - 10/24/2023 IMPRESSION: This is an overnight oximetry assumed to have been performed on room airas a completed questionnaire was not returned. Mean saturation of 94%with periods of oscillatory desaturation to as low as 82% noted during thestudy. Heart rate tracing suggests an arrhythmia. Impression: Abnormal. Desaturations concerning for a positional orsleep-related breathing disorder. Possible arrhythmia. Physician: Martin Humphries M.D. [id number] Jean Claude Kimball M.D. PFT ORDERABLES [facility] * (ABNORMAL) Troponin T, 2h/6h, 5th Gen (10/18/2023 5:13 PM DATA ENGINEER) Troponin T, 2 hr, 5th gen 24(H) <=15 ng/L 10/18/2023 5:53 PM DATA ENGINEER STMA 2H Delta -1 ng/L 10/18/2023 5:53 PM DATA ENGINEER STMA 2H Delta Interp Not Changing 10/18/2023 5:53 PM DATA ENGINEER STMA Troponin T, 6 hr, 5th gen CANCELED ng/L 10/18/2023 5:53 PM DATA ENGINEER STMA Comment:Result canceled by t he ancillary. 6H Delta CANCELED ng/L 10/18/2023 5:53 PM DATA ENGINEER STMA Comment:Result canceled by t he ancillary. 6H Delta % CANCELED % 10/18/2023 5:53 PM DATA ENGINEER STMA Comment:Result canceled by t he ancillary. Blood (Blood, Venous) 10/18/2023 5:13 PM DATA ENGINEER 10/18/2023 5:28 PM DATA ENGINEER Narrative [facility] - 10/18/2023 5:53 PM DATA ENGINEER Specimen Information: Specimen ID: [id number] Specimen Type: Blood Specimen Collection Start Date: 10/18/2023 ??5:13 PM Specimen Received Date: 10/18/2023 ??5:28 PM Specimen ID: [id number] Specimen Type: Blood Specimen Collection Start Date: 10/18/2023 ??5:53 PM Specimen Received Date: 10/18/2023 ??5:53 PM Janice Pierce P.A.-C. MCuongS. LAB BLOOD TRO PONIN [facility] [address] [place] [address], [facility] [address] [place] [address] * (ABNORMAL) Troponin T, Baseline, 5th gen (10/18/2023 3:27 PM DATA ENGINEER) Pathologist [facility] Troponin T, Baseline, 5th gen 25(H) <=15 ng/L 10/18/2023 4:17 PM DATA ENGINEER STMA Blood (Blood, Venous) 10/18/2023 3:27 PM DATA ENGINEER 10/18/2023 3:32 PM DATA ENGINEER Janice Pierce P.A.-C. MCuongSCuong LAB BLOOD TRO PONIN Performing Organization Address [facility] de Phone Number [facility] [address] [place], [place] [id number] [place] [address] [address] [place] [address] * (ABNORMAL) NT-Pro B-Type Natriuretic Peptide (BNP) (10/18/2023 3:27 PM DATA ENGINEER) NT-Pro BNP 1599(H) <=540 pg/mL 10/18/2023 4:20 PM DATA ENGINEER [facility] Comment: NT-proBNP values less than 300 pg/mL have a 99% negative predictive value for excluding acute congestive heart failure. A cutoff of 1200 pg/mL for patients with an eGFR<60 yields a diagnostic sensitivity and specificity of 89% and 72% for acute congestive heart failure. A diagnostic NT-proBNP cutoff of 1800 pg/mL has been suggested in adults over 75 years of age in the absence of renal failure. Blood (Blood, Venous) 10/18/2023 3:27 PM DATA ENGINEER 10/18/2023 3:32 PM DATA ENGINEER Janice Pierce P.A.-C., M.S. LAB BLOOD ADD -ON Performing Organization Address [facility] Co de Phone Number [facility] [address] [place], [place] [id number] [place] [address] [address] [place] [address] * (ABNORMAL) Prothrombin Time (PT) (10/18/2023 3:27 PM DATA ENGINEER) Prothrombin Time, P 23.8(H) 9.4 - 12.5 sec 10/18/2023 4:00 PM DATA ENGINEER DTL INR 2.1 0.9 - 1.1 10/18/2023 4:00 PM DATA ENGINEER DTL Comment: ----ADDITIONAL INFORMATION---- Standard intensity warfarin therapeutic range: 2.0 to 3.0 ?? High intensity warfarin therapeutic range: 2.5 to 3.5 Blood (Blood, Venous) 10/18/2023 3:27 PM DATA ENGINEER 10/18/2023 3:40 PM DATA ENGINEER Janice Pierce P.A.-C., M.S. LAB BLOOD ADD -ON [facility] [address] [place] [address], [facility] [address] [place] [address] * (ABNORMAL) CBC with Differential, Blood (10/18/2023 3:27 PM DATA ENGINEER) Hemoglobin 13.1(L) 13.2 - 16.6 g/dL 10/18/2023 3:39 PM DATA ENGINEER STMA Hematocrit 40.1 38.3 - 48.6 % 10/18/2023 3:39 PM DATA ENGINEER STMA Erythrocytes 4.24(L) 4.35 - 5.65 x10(12)/L 10/18/2023 3:39 PM DATA ENGINEER STMA MCV 94.6 78.2 - 97.9 fL 10/18/2023 3:39 PM DATA ENGINEER STMA RBC Distrib Width 12.7 11.8 - 14.5 % 10/18/2023 3:39 PM DATA ENGINEER STMA Platelet Count 582(H) 135 - 317 x10(9)/L 10/18/2023 3:39 PM DATA ENGINEER STMA Leukocytes 11.4(H) 3.4 - 9.6 x10(9)/L 10/18/2023 3:39 PM DATA ENGINEER STMA Neutrophils 8.73(H) 1.56 - 6.45 x10(9)/L 10/18/2023 3:39 PM DATA ENGINEER DHPM Lymphocytes 1.86 0.95 - 3.07 x10(9)/L 10/18/2023 3:39 PM DATA ENGINEER STMA Monocytes 0.67 0.26 - 0.81 x10(9)/L 10/18/2023 3:39 PM DATA ENGINEER STMA Eosinophils 0.06 0.03 - 0.48 x10(9)/L 10/18/2023 3:39 PM DATA ENGINEER STMA Basophils 0.07 0.01 - 0.08 x10(9)/L 10/18/2023 3:39 PM DATA ENGINEER STMA Blood (Blood, Venous) 10/18/2023 3:27 PM DATA ENGINEER 10/18/2023 3:32 PM DATA ENGINEER Janice Pierce P.A.-C., M.S. LAB BLOOD ADD -ON Performing Organization Address City/[facility]/ZIP Co de Phone Number [facility] [address] [place] [address], [facility] STMA [facility] [address] [place] [address] DHPM [facility] [address] [place] [address] * S-TSH (Thyroid-Stimulating Hormone - Sensitive) (10/18/2023 3:27 PM DATA ENGINEER) TSH, Sensitive 1.2 0.3 - 4.2 mIU/L 10/18/2023 4:16 PM DATA ENGINEER DTL Blood (Blood, Venous) 10/18/2023 3:27 PM DATA ENGINEER 10/18/2023 3:51 PM DATA ENGINEER Janice Pierce P.A.-C., M.S. LAB BLOOD ADD -ON Performing Organization Address City/[facility]/ZIP Co de Phone Number [facility] [address] [place] [address], [facility] DTL [facility] [address] [place] [address] * (ABNORMAL) Ferritin (10/18/2023 3:21 PM DATA ENGINEER) Ferritin, S 843(H) 31 - 409 mcg/L 10/23/2023 12:00 PM DATA ENGINEER DTL Blood (Blood, Venous) 10/18/2023 3:21 PM DATA ENGINEER 10/23/2023 11:22 AM DATA ENGINEER Jean Claude Kimball M.D. LAB BLOOD ADD-ON Performing Organization Address [facility] Co de Phone Number [facility] [address] [place] [address], [place] DTL [facility] [address] [place] [address] * ECG 12 Lead (10/18/2023 3:17 PM DATA ENGINEER) Ventricular Rate ECG/Min 134 BPM MUSE QRSD Interval 78 ms MUSE QT Interval 274 ms MUSE QTC Interval 409 ms MUSE R Crawley -22 degrees MUSE T Wave Crawley 155 degrees MUSE 10/18/2023 3:17 PM DATA ENGINEER 10/18/2023 3:21 PM DATA ENGINEER Impressions MUSE - 10/18/2023 3:21 PM DATA ENGINEER Atrial fibrillation with rapid ventricular response with premature ventricular or aberrantly conducted complexes Nonspecific T wave abnormality When compared with ECG of 07-OCT-2023 12:16, Nonspecific T wave abnormality has replaced inverted T waves in Anterolateral leads Vent. rate has increased by 40 BPM Reviewed by DAYANA Bowman Narrative Procedure Note Denzel Meade Jr., M.D. - 10/18/2023 IMPRESSION: Atrial fibrillation with rapid ventricular response with premature ventricular or aberrantly conducted complexes Nonspecific T wave abnormality When compared with ECG of 07-OCT-2023 12:16, Nonspecific T wave abnormality has replaced inverted T waves inAnterolateral leads Vent. rate has increased by 40 BPM Reviewed by DAYANA Bowman Newton Garcia M.D. ECG ORDERABLES Performing Organization Address [facility] Co de Phone Number MUSE NA from Last 3 Months Advance Directives For more information, please contact: [phone] Documents on File Type Date Recorded Patient Talent Buyer Expl anation Advance Directives 10/13/2009 12:00 AM Leg acy document. See document viewer. Advance Directives 10/13/2009 12:00 AM Leg acy document. See document viewer. Advance Directives 05/06/2007 12:00 AM L[place] cy document. See document viewer. Care Teams Recruiting Operations Consultant Relationship Specialty Start Date End Date Elsewhere, Pcp PCP - General Internal Medicine 10/07/23
--- OUTSIDE RECORDS SUMMARY | 2024-01-08 07:17 | XMS_ITS | Encounter Summary ---
Author Name Unknown Organization [place] Address [address] [place] [address] Care Team Providers Care Rubber Stamp Assembler Name Role Phone Edwige Negrete MD Primary Care Provider [phone] Nicanor Klein MD Unavailable Nicanor Klein MD Unavailable Nicanor Klein MD Unavailable Merrill Mejia MD Primary Care Provider [phone] Merrill Mejia MD Primary Care Provider Reason for Visit * Reason Onset Date Comments Appointment 08/19/2023 [facility] Encounter Details Date Type Department Care Team (Late st Contact Info) Description 08/19/2023 Telephone [facility] [address] [address] [address] [place] [address] None Appointment ([facility] ) Social History Tobacco Use Types Packs/Day Years Used Date Smoking Tobacco: Never Alcohol Use Standard Drinks/Week Comments Yes 0 (1 standard drink = 0.6 oz pur e alcohol) Adolescent Education Answer Date Record ed Getting School Help Needed Not on file 06/09 Sex and Gender Information Value Date Recorded Sex Assigned at Male 09/28/2023 2:19 PM AIRCRAFT ELECTRICIAN Gender Identity Male 09/28/2023 2:19 PM AIRCRAFT ELECTRICIAN Sexual Orientation Straight 09/28/2023 2: 19 PM AIRCRAFT ELECTRICIAN documented as of this encounter Miscellaneous Notes [...] Not Applicable Thank you! [facility] RAFT ELECTRICIAN documented in this encounter Plan of Treatment Upcoming Encounters Date Type Department Care Team (Late st Contact Info) Description 05/14/2024 12:30 PM CDT Office Visit [facility] [address] [place] [phone] Gail Post MD [address] [place] [address] Anushka Carrasquillo MD [address] [place] [address] documented as of this encounter Visit Diagnoses Not on filedocumented in this encounter Care Teams Rubber Stamp Assembler Relationship Specialty [place] [address] [place] [address] PCP - General Family Practice 07/21/19 10/09/23 Merrill Mejia MD [facility] [address] [address] PCP - General Family Medicine 10/10/23 10/24/23 Merrill Mejia MD [facility] [address] [address] PCP - General Family Medicine 10/25/23 Nicanor Klein MD [address] [place] [id number] Cardiovascular Disease 09/16/23 Nicanor Klein MD [address] [place] [address] Cardiovascular Disease 09/16/23 Nicanor Klein MD [address] [place] [place] [id number] Assigned Heart and Vascular Provider 09/26/23 documented as of this encounter
--- OUTSIDE RECORDS SUMMARY | 2024-01-08 07:17 | XMS_ITS ---
Author Name Unknown Organization [facility] Address [address] [place] [address] Care Team Providers Care Medical Radiation Dosimetrist Name Role Phone Nicanor Klein MD Unavailable Nicanor Klein MD Unavailable Nicanor Klein MD Unavailable Merrill Mejia MD Primary Care Provider [phone] Transitional Care Management Status:Closed (Closed) Start date:10/17/2023 Enrollment date:10/17/2023 End date:10/31/2023 Close reason:Goals met Continued Care and Services Coordination
--- OUTSIDE RECORDS SUMMARY | 2024-01-08 07:17 | XMS_ITS | Encounter Summary ---
Author Name Unknown Organization [facility] Address [address] [place] [address]. [place] [address] Care Team Providers Care Welding Machine Operator Submerged Arc Name Role Phone Edwige Negrete MD Primary Care Provider [phone] Shaneka Patel MD Unavailable Shaneka Patel MD Unavailable Shaneka Patel MD Unavailable Reason for Referral * CV Testing (Routine) - Closed Specialty Diagnoses / Procedures Referred By Contac t Referred To Contact Cardiology Diagnoses Shortness of breath Procedures Echocardiogram Complete ZZHC TTE W/DOPPLER, COMPLETE ZZHC ECHO COMPLETE W DOPPLER W CONTRAST ZZHC ECHO COMPLETE W DOPPLER W/O CONTRAST ZZHC IV PUSH SINGLE, INITIAL SUBSTANCE ZZHC US GUIDE FOR PERICARDIOCENTESIS ZZHC ECHO MYOCARD BX ZZC INJECTION, PERFLUTREN LIPID MICROSPHERES, PER ML ZZHC STATISTIC IV PUSH SINGLE INITIAL SUBSTANCE NV ECHO MYOCARD BX NV INJECTION, PERFLUTREN LIPID MICROSPHERES, PER ML NV TTE W/DOPPLER, COMPLETE NV IV PUSH SINGLE, INITIAL SUBSTANCE NV TTE W/DOPPLER, COMPLETE NV TTE W/DOPPLER, COMPLETE HC US GUIDE FOR PERICARDIOCENTESIS HC ECHO MYOCARD BX HC IV PUSH SINGLE, INITIAL SUBSTANCE HC STATISTIC IV PUSH SINGLE INITIAL SUBSTANCE HC ECHO COMPLETE W DOPPLER W CONTRAST HC ECHO COMPLETE W DOPPLER W/O CONTRAST Shaneka Patel MD [address] [place] [address] Rh C[facility] S[facility] [address] [place] [phone] Referral ID Status Reason Start Date Expiration Date Visits Re quested Visits Authorized [id number] Closed 10/01/2023 09/22/2024 1 1 VE BOARD RACKER Reason for Visit * CV Testing (Routine) - Closed Specialty Diagnoses / Procedures Referred By Contac t Referred To Contact Cardiology Diagnoses Shortness of breath Procedures Echocardiogram Complete ZZHC TTE W/DOPPLER, COMPLETE ZZHC ECHO COMPLETE W DOPPLER W CONTRAST ZZHC ECHO COMPLETE W DOPPLER W/O CONTRAST ZZHC IV PUSH SINGLE, INITIAL SUBSTANCE ZZHC US GUIDE FOR PERICARDIOCENTESIS ZZHC ECHO MYOCARD BX ZZC INJECTION, PERFLUTREN LIPID MICROSPHERES, PER ML ZZHC STATISTIC IV PUSH SINGLE INITIAL SUBSTANCE NV ECHO MYOCARD BX NV INJECTION, PERFLUTREN LIPID MICROSPHERES, PER ML NV TTE W/DOPPLER, COMPLETE NV IV PUSH SINGLE, INITIAL SUBSTANCE NV TTE W/DOPPLER, COMPLETE NV TTE W/DOPPLER, COMPLETE HC US GUIDE FOR PERICARDIOCENTESIS HC ECHO MYOCARD BX HC IV PUSH SINGLE, INITIAL SUBSTANCE HC STATISTIC IV PUSH SINGLE INITIAL SUBSTANCE HC ECHO COMPLETE W DOPPLER W CONTRAST HC ECHO COMPLETE W DOPPLER W/O CONTRAST Shaneka Patel MD [address] [place] [address] Rh Cv Cardiac Svc [address] [place] [phone] Referral ID Status Reason Start Date Expiration Date Visits Re quested Visits Authorized [id number] Closed 10/01/2023 09/22/2024 1 1 Encounter Details Date Type Department Care Team (Latest Contact Info) Description 10/01/2023 9:45 AM OCTAVE BOARD RACKER - 10/01/2023 11:11 AM OCTAVE BOARD RACKER Hospital Encounter [facility] [address] [place] [phone] Shaneka Patel MD [address] [place] [address] Shortness of breath Discharge Disposition: Home or Self Care Social History Tobacco Use Types Packs/Day Years Used Date Smoking Tobacco: Never Alcohol Use Standard Drinks/Week Comments Yes 0 (1 standard drink = 0.6 oz pur e alcohol) Adolescent Education Answer Date Record ed Getting School Help Needed Not on file 06/09 Sex and Gender Information Value Date Recorded Sex Assigned at Male 09/28/2023 2:19 PM OCTAVE BOARD RACKER Gender Identity Male 09/28/2023 2:19 PM OCTAVE BOARD RACKER Sexual Orientation Straight 09/28/2023 2: 19 PM OCTAVE BOARD RACKER documented as of this encounter Medications at [...] CHECK GLUCOSE TWICE DAILY DIRECTED 09/05/2023 10/14/2023 atenolol-chlorthalidon e (TENORETIC) 50-25 MG tablet Take 1 tablet by mouth every morning 10/16/2023 INSULIN GLARGINE 100 UNIT/ML pen Inject Subcutaneous at bedtime 10/10/23: 82 units 10/11/23: 60 units 10/12/23: 50 units 10/13/23: 50 units 10/26/2022 10/16/2023 predniSONE (DELTASONE) 20 MG tablet Take 10 mg by mouth daily 10/14/2023 rosuvastatin (CRESTOR) 40 MG tabletIndications:Calc ification of coronary artery Take 1 tablet (40 mg) by mouth at bedtime 90 tablet 3 09/23/2023 10/16/2023 documented as of this encounter Plan of Treatment Upcoming Encounters Date Type Department Care Team (Late st Contact Info) Description 05/14/2024 12:30 PM CDT Office Visit [facility] [address] [place] [phone] Gail Post MD [address] [place] [phone] Anushka Carrasquillo MD [address] [place], [place] [phone] documented as of this encounter Procedures Procedure Name Priority Date/Time Associated Diagnosis Comments ECHO COMPLETE Routine 10/01/2023 10:29 AM OCTAVE BOARD RACKER Shortness of breath documented in this encounter Results * ECHO COMPLETE (10/01/2023 10:29 AM OCTAVE BOARD RACKER) LVEF 60-65% CARDIOLOGY RESULTS Anatomical Region Laterality Modality Echocardiography 10/01/2023 9:49 AM OCTAVE BOARD RACKER Narrative 10/01/2023 10:56 AM OCTAVE BOARD RACKER [id number]^JORGE^SHANEKA^[facility] Echocardiography Laboratory [address] [place] [address] Name: OLGA SANTOS : 1940 Study Date: 10/01/2023 09:49 AM Age: 83 yrs Gender: Male Patient Location: [facility] Reason For Study: Shortness of breath Ordering Physician: SHANEKA PATEL Referring Physician: SHANEKA PATEL Performed By: Cecil Valero RDCS BSA: 2.2 m2 Height: 73 in Weight: 205 lb HR: 131 BP: 93/59 mmHg Procedure Complete Echo Adult. Interpretation Summary The visual ejection fraction is 60-65%. Left ventricular systolic function is normal. The right ventricular systolic function is mild to moderately reduced. Trivial pericardial effusion The rhythm was rapid atrial fibrillation. The study was technically difficult. Left Ventricle The left ventricle is normal in size. There is mild concentric left ventricular hypertrophy. The visual ejection fraction is 60-65%. Diastolic function not assessed due to atrial fibrillation. Left ventricular systolic function is normal. With rapid atrial fibrillation, the visual approximation of left ventricular systolic function may be falsely decreased. Right Ventricle The right ventricle is normal size. The right ventricular systolic function is mild to moderately reduced. TAPSE is reduced at 1.07 cm. Atria Normal left atrial size. Right atrial size is normal. There is no color Doppler evidence of an atrial shunt. Lipomatous hypertrophy of the interatrial septum is noted. Mitral Valve There is trace mitral regurgitation. Tricuspid Valve There is mild (1+) tricuspid regurgitation. The right ventricular systolic pressure is approximated at 14.7 mmHg plus the right atrial pressure. Aortic Valve The aortic valve is trileaflet. There is mild trileaflet aortic sclerosis. No aortic regurgitation is present. No hemodynamically significant valvular aortic stenosis. Pulmonic Valve There is no pulmonic valvular regurgitation. Normal pulmonic valve velocity. Vessels The aortic root is normal size. Normal size ascending aorta. Mild atherosclerotic plaque(s) in the ascending aorta. IVC diameter <2.1 cm collapsing >50% with sniff suggests a normal RA pressure of 3 mmHg. Pericardium Trivial pericardial effusion. Rhythm The rhythm was rapid atrial fibrillation. MMode/2D Measurements & Calculations IVSd: 1.00 cm LVIDd: 3.4 cm LVIDs: 2.3 cm LVPWd: 1.2 cm IVC diam: 1.8 cm FS: 33.3 % LV mass(C)d: 111.3 grams LV mass(C)dI: 51.2 grams/m2 Ao root diam: 3.9 cm asc Aorta Diam: 3.5 cm LVOT diam: 2.3 cm LVOT area: 4.0 cm2 Ao root diam index Ht(cm/m): 2.1 Ao root diam index BSA (cm/m2): 1.8 Asc Ao diam index BSA (cm/m2): 1.6 Asc Ao diam index Ht(cm/m): 1.9 LA Volume (BP): 61.7 ml LA Volume Index (BP): 28.4 ml/m2 RWT: 0.67 TAPSE: 1.1 cm Doppler Measurements & Calculations MV E max micha: 86.3 cm/sec TR max micha: 191.4 cm/sec TR max P.7 mmHg E/E' av.9 Lateral E/e': 5.6 Medial E/e': 10.2 RV S Micha: 9.7 cm/sec Report approved by: Corine Guy 10/01/2023 10:56 AM Procedure Note Reynaldo River MD - 10/01/2023 [id number]^JORGE^SHANEKA^[facility] Echocardiography Laboratory [address] [place] [id number] Name: OLGA SANTOS : 1940 Study Date: 10/01/2023 09:49 AM Age: 83 yrs Gender: Male Patient Location: [facility] Reason For Study: Shortness of breath Ordering Physician: SHANEKA PATEL Referring Physician: SHANEKA PATEL Performed By: Cecil Valero RDCS BSA: 2.2 m2 Height: 73 in Weight: 205 lb HR: 131 BP: 93/59 mmHg Procedure Complete Echo Adult. Interpretation Summary The visual ejection fraction is 60-65%. Left ventricular systolic function is normal. The right ventricular systolic function is mild to moderately reduced. Trivial pericardial effusion The rhythm was rapid atrial fibrillation. The study was technically difficult. Left Ventricle The left ventricle is normal in size. There is mild concentric left ventricular hypertrophy. The visual ejection fraction is 60-65%.Diastolic function not assessed due to atrial fibrillation. Left ventricularsystolic function is normal. With rapid atrial fibrillation, the visualapproximation of left ventricular systolic function may be falsely decreased. Right Ventricle The right ventricle is normal size. The right ventricular systolicfunction is mild to moderately reduced. TAPSE is reduced at 1.07 cm. Atria Normal left atrial size. Right atrial size is normal. There is no color Doppler evidence of an atrial shunt. Lipomatous hypertrophy of theinteratrial septum is noted. Mitral Valve There is trace mitral regurgitation. Tricuspid Valve There is mild (1+) tricuspid regurgitation. The right ventricularsystolic pressure is approximated at 14.7 mmHg plus the right atrial pressure. Aortic Valve The aortic valve is trileaflet. There is mild trileaflet aortic sclerosis.No aortic regurgitation is present. No hemodynamically significant valvular aortic stenosis. Pulmonic Valve There is no pulmonic valvular regurgitation. Normal pulmonic valvevelocity. Vessels The aortic root is normal size. Normal size ascending aorta. Mild atherosclerotic plaque(s) in the ascending aorta. IVC diameter <2.1 cm collapsing >50% with sniff suggests a normal RA pressure of 3 mmHg. Pericardium Trivial pericardial effusion. Rhythm The rhythm was rapid atrial fibrillation. MMode/2D Measurements & Calculations IVSd: 1.00 cm LVIDd: 3.4 cm LVIDs: 2.3 cm LVPWd: 1.2 cm IVC diam: 1.8 cm FS: 33.3 % LV mass(C)d: 111.3 grams LV mass(C)dI: 51.2 grams/m2 Ao root diam: 3.9 cm asc Aorta Diam: 3.5 cm LVOT diam: 2.3 cm LVOT area: 4.0 cm2 Ao root diam index Ht(cm/m): 2.1 Ao root diam index BSA (cm/m2): 1.8 Asc Ao diam index BSA (cm/m2): 1.6 Asc Ao diam index Ht(cm/m): 1.9 LA Volume (BP): 61.7 ml LA Volume Index (BP): 28.4 ml/m2 RWT: 0.67 TAPSE: 1.1 cm Doppler Measurements & Calculations MV E max micha: 86.3 cm/sec TR max micha: 191.4 cm/sec TR max P.7 mmHg E/E' av.9 Lateral E/e': 5.6 Medial E/e': 10.2 RV S Micha: 9.7 cm/sec Report approved by: Corine Guy 10/01/2023 10:56 AM Shaneka Patel MD CV ECHO ORDERABLES documented in this encounter Visit Diagnoses Diagnosis Shortness of breath documented in this encounter Care Teams Welding Machine Operator Submerged Arc Relationship Specialty [place] [address] [facility] [place] [address] PCP - General Family Practice 07/21/19 10/09/23 Shaneka Patel MD [address] [place] [id number] Cardiovascular Disease 09/16/23 Shaneka Patel MD [address] [place] [address] Cardiovascular Disease 09/16/23 Shaneka Patel MD [address] [place] [id number] Assigned Heart and Vascular Provider 09/26/23 documented as of this encounter
--- OUTSIDE RECORDS SUMMARY | 2024-01-08 07:17 | XMS_ITS | Encounter Summary ---
Author Name Unknown Organization [facility] Address [address] [place] [address]. [place] [address] Care Team Providers Care B2B Appointment Setter Name Role Phone Edwige Negrete MD Primary Care Provider [phone] Nicanor Klein MD Unavailable Nicanor Klein MD Unavailable Nicanor Klein MD Unavailable Reason for Visit * Reason Onset Date Comments Refill Request 09/30/2023 [facility] Encounter Details Date Type Department Care Team (Late st Contact Info) Description 09/30/2023 Telephone [facility] [address] [place] [address] Nikki Ibarra, RN Refill Request (Xarelto) Social History Tobacco Use Types Packs/Day Years Used Date Smoking Tobacco: Never Alcohol Use Standard Drinks/Week Comments Yes 0 (1 standard drink = 0.6 oz pur e alcohol) Adolescent Education Answer Date Record ed Getting School Help Needed Not on file 06/09 Sex and Gender Information Value Date Recorded Sex Assigned at Male 09/28/2023 2:19 PM UNDER CUTTER Gender Identity Male 09/28/2023 2:19 PM UNDER CUTTER Sexual Orientation Straight 09/28/2023 2: 19 PM UNDER CUTTER documented as of this encounter Miscellaneous Notes * Telephone Encounter - Nikki Ibarra, RN - 09/30/2023 3:54 PM CST Voicemail received from patient's that they do not have enough xarelto to last him until his procedures, refill needed. They also want to know how long he is supposed to be taking the prednisone. Dr Klein recommended DCCV with 3wks uninterrupted AC prior, currently scheduled for 10/15. Called patient/ back, Rx sent to [facility]. Regarding the prednisone, recommended they reach out to primary and Yessenia will do this. R CUTTER documented in this encounter Plan of Treatment Upcoming Encounters Date Type Department Care Team (Late st Contact Info) Description 05/14/2024 12:30 PM CDT Office Visit [facility] [address] [place] [address] Gail Post MD [address] [place] [address] Anushka Carrasquillo MD [address] [place], [place] [address] documented as of this encounter Visit Diagnoses Diagnosis Atrial flutter, unspecified type (H)- Primary Paroxysmal atrial flutter (H) Atrial flutter documented in this encounter Care Teams B2B Appointment Setter Relationship Specialty [place] [address] [place] [address] PCP - General Family Practice 07/21/19 10/09/23 Nicanor Klein MD [address] [facility] [address] [place] [address] Cardiovascular Disease 09/16/23 Nicanor Klein MD [address] [place] [address] Cardiovascular Disease 09/16/23 Nicanor Klein MD [address] [place] [address] Assigned Heart and Vascular Provider 09/26/23 documented as of this encounter
--- OUTSIDE RECORDS SUMMARY | 2024-01-08 07:17 | XMS_ITS | Encounter Summary ---
Author Name Unknown Organization [facility] Address [address] [place] [address] Care Team Providers Care Lung Gun Operator Name Role Phone Elsewhere, Pcp Primary Care Provider Unavailabl e Encounter Details Date Type Department Care Team (Late st Contact Info) Description 12/11/2023 Orders Only Department of Cardiovascular Medicine in [place], [place] [address] [place] [address] Jean Claude Kimball M.D. [address] [place] [address] Social History Tobacco Use Types Packs/Day Years [...] often do you attend chur ch or gnosticism services? More than 4 times per year 01/11/2020 Do you belong to any clubs o r organizations such as sikhism groups, unions, fraternal or athletic groups, or [...] and heating? Not hard at all 01/11/2020 [facility] of Occupat ional Health - Occupational Stress [...] AM CDT Clinical Communication Virtual Review in [place], [place] [address] [place] [address] 02/05/2024 1:00 PM CDT Comprehensive Visit Department of Neurology in [place], [place] [address] [place] [phone] Arturo Barfield M.D. [address] [place] [phone] documented as of this encounter Visit Diagnoses Not on filedocumented in this encounter Additional Health Concerns Assessment Noted Time PHQ-9 Depression Total Score: 1 07/16/20 13 2:30 PM DISH PERSON documented as of this encounter Care Teams Lung Gun Operator Relationship Specialty Start Date End Date Elsewhere, Pcp PCP - General Internal Medicine 10/07/23 documented as of this encounter
--- OUTSIDE RECORDS SUMMARY | 2024-01-08 07:17 | XMS_ITS | Encounter Summary ---
Author Name Unknown Organization [facility] Address [address] [place] [address] Care Team Providers Care Electronic Components Assembler Name Role Phone Elsewhere, Pcp Primary Care Provider Unavailabl e Encounter Details Date Type Department Care Team (Latest Contact Info) Description 12/10/2023 3:28 PM CDT - 12/10/2023 11:59 PM CDT Hospital Encounter Department of Laboratory Medicine and Pathology, [facility] in [place], [place] [address] [place] [address] Jean Claude Kimball M.D. [address] [place] [phone] Fibrillation Atrial (AF) NOS Discharge Disposition: Home or Self Care Social [...] often do you attend chur ch or mormonism services? More than 4 times per year 01/11/2020 Do you belong to any clubs o r organizations such as christianity groups, unions, fraternal or athletic groups, or [...] and heating? Not hard at all 01/11/2020 [facility] of Occupat ional Health - Occupational Stress [...] Sig Dispensed Refills Start Date End Date Accu-Chek Guide Glucose Meter misc USE TO TEST BLOOD SUGARS TWICE DAILY 09/06/2023 acetaminophen (ACETAMINOPHEN EXTRA STRENGTH) 500 mg tablet Take 1 tablet by mouth as needed. pain 02/11/2014 acetaminophen/diphenh ydramine (DIPHENHYDRAMINE-ACET AMINOPHEN ORAL) Take 1 tablet by mouth at bedtime as needed. 25 mg/500 mg sleep 02/11/2014 amiodarone (PACERONE) 200 mg tablet Take 1 tablet (200 mg total) by mouth 2 (two) times a day for 7 days, THEN 1 tablet (200 mg total) daily. 194 tablet 10/31/2023 05/04/2024 BD Ultra-Fine Short Pen Needle 31 gauge x 5/16 needle daily. 03/23/2023 blood sugar diagnostic strips (Accu-Chek Negin Plus test strp) 4 test. 12/23/2020 cholecalciferol (VITAMIN D3) 2,000 Unit tablet Take 1 tablet by mouth daily. 02/11/2014 clindamycin (CLEOCIN T) 1 % external solution Apply topically as needed. 02/11/2014 clindamycin (CLEOCIN T) 1 % lotion Apply 1 Application topically as needed. eszopiclone (LUNESTA) 2 mg tablet Take 2 mg by mouth at bedtime. 08/06/2022 gabapentin (NEURONTIN) 100 mg capsule Take 100 mg by mouth at bedtime. glipiZIDE (GLUCOTROL XL) 5 mg 24 hr tablet Take 1 tablet by mouth daily. 02/11/2014 insulin glargine 100 unit/mL (3 mL) injection Inject 30 Units under the skin daily. 08/26/2015 insulin lispro 100 unit/mL injection Inject 1-20 Units under the skin as needed. 10/16/2023 lidocaine (LIDODERM) 5 % Place 1 patch on the skin as needed. Apply to foot LORazepam (ATIVAN) 1 mg tablet Take 1 mg by mouth 2 (two) times a day as needed. 10/31/2023 losartan (COZAAR) 100 mg tablet Take 100 mg by mouth daily. magnesium oxide (MagOx) 400 mg (241.3 mg magnesium) tablet Take 400 mg by mouth daily. melatonin 5 mg tablet Take 5 mg by mouth. Prefers lunesta metFORMIN XR (GLUCOPHAGE-XR) 500 mg 24 hr tablet Take 500 mg by mouth daily with breakfast. 06/06/2023 metFORMIN XR (GLUCOPHAGE-XR) 500 mg 24 hr tablet Take 500 mg by mouth daily. 06/06/2023 metoprolol succinate (TOPROL-XL) 25 mg 24 hr tablet Take 1 tablet by mouth daily. 10/17/2023 mirabegron (Myrbetriq) 50 mg 24 hr tablet Take 1 tablet (50 mg total) by mouth daily. 90 tablet 3 05/07/2023 jgaqvcbn-gyv-qeua-FA- vit K-lut 8 mg iron-400 mcg-50 mcg tablet Take 1 tablet by mouth daily. naproxen sodium (ALEVE) 220 mg tablet Take 1 tablet by mouth as needed. pain 02/11/2014 nitroglycerin (NITROSTAT) 0.[address] 0.4 mg under the tongue every 5 (five) minutes as needed. 09/23/2023 oxyCODONE (ROXICODONE) 5 mg immediate release tablet Take 5 mg by mouth as needed. Not taking currently 08/16/2023 oxymetazoline HCl (AFRIN, OXYMETAZOLINE, NASAL) Administer 1 spray into affected nostril(s) at bedtime as needed. Per nostril for congestion as needed 02/11/2014 peg 400-propylene glycol (SYSTANE) 0.4-0.3 % ophthalmic solution Administer 1 drop into both eyes 2 (two) times a day. rivaroxaban (XARELTO) 20 mg tablet Take 20 mg by mouth daily with dinner. 09/30/2023 rosuvastatin (CRESTOR) 40 mg tablet Take 1 tablet by mouth at bedtime. 10/16/2023 trospium (SANCTURA XR) 60 mg 24 hr capsule Take 1 capsule (60 mg total) by mouth every morning before breakfast. 90 capsule 3 04/25/2023 04/24/2024 vit A/vit C/vit E/zinc/copper (PRESERVISION AREDS ORAL) Take 1 tablet by mouth 2 (two) times a day. 06/15/2013 documented as of this encounter Plan of Treatment Upcoming Encounters Date Type Department Care Team (Latest Contact Info) Description 01/29/2024 10:45 AM CDT Clinical Communication Virtual Review in [place], [place] 200 [place] [address] 02/05/2024 1:00 PM CDT Comprehensive Visit Department of Neurology in [place], [place] [address] [place] [phone] Arturo Barfield M.D. [address] [place] [phone] documented as of this encounter Procedures Procedure Name Priority Date/Time Associated Diagnosis Comments HEPATIC FUNCTION PANEL, S Routine 12/10/2023 3:41 PM CDT Fibrillation Atrial (AF) NOS THYROID FUNCTION CASCADE, S Routine 12/10/2023 3:41 PM CDT Fibrillation Atrial (AF) NOS BASIC METABOLIC PANEL, S/P Routine 12/10/2023 3:41 PM CDT Fibrillation Atrial (AF) NOS documented in this encounter Results * Thyroid Function Burke (12/10/2023 3:41 PM CDT) TSH, Sensitive 1.6 0.3 - 4.2 mIU/L 12/10/2023 7:29 PM CDT DTL Blood (Blood, Venous) 12/10/2023 3:41 PM CDT 12/10/2023 4:09 PM CDT Jean Claude Kimball M.D. LAB BLOOD ADD-ON [facility] [address] [place] [address], [facility] [address] [place] [address] * Hepatic Function Panel (12/10/2023 3:41 PM CDT) Bilirubin, Total, S 0.5 0.0 - 1.2 [...] Jean Claude Kimball M.D. LAB BLOOD ADD-ON [address] [address], [address] [address] * (ABNORMAL) Basic Metabolic Panel (12/10/2023 3:41 PM CDT) Potassium, S 4.6 3.6 - 5.2 mmol/L [...] Jean Claude Kimball M.D. LAB BLOOD ADD-ON [facility] [address] [place] [address], [facility] [address] [place] [address] documented in this encounter Visit Diagnoses Diagnosis Fibrillation Atrial (AF) NOS documented in this encounter Additional Health Concerns Assessment Noted Time PHQ-9 Depression Total Score: 1 07/16/20 13 2:30 PM LONGWALL SHEARER OPERATOR documented as of this encounter Care Teams Electronic Components Assembler Relationship Specialty Start Date End Date Elsewhere, Pcp PCP - General Internal Medicine 10/07/23 documented as of this encounter
--- OUTSIDE RECORDS SUMMARY | 2024-01-08 07:17 | XMS_ITS | Referral Summary ---
Author Name Unknown Organization [facility] Address [address] [place] [address] Care Team Providers Care Pediatric Physician Name Role Phone Elsewhere, Pcp Primary Care Provider Unavailabl e Source Comments Patient records contain information from all sites at [facility]. For routine questions regarding patient records, call [phone] during business hours, M-F 8:00 AM - 5:00 PM Central Time. Record requests for emergency care only can be directed to [phone] at any time.[facility] Encounters Date Type Department Care Team Description 12/11/2023 Orders Only Department of Cardiovascular Medicine in [place], [place] [address] [place] [phone] Jean Claude Kimball M.D. 12/10/2023 3:28 PM CDT - 12/10/2023 11:59 PM CDT Hospital Encounter Department of Laboratory Medicine and Pathology, [facility], in [place], [place] [address] [place] [phone] Jean Claude Kimball M.D. Fibrillation Atrial (AF) NOS Discharge Disposition: Home or Self Care 12/10/2023 2:00 PM CDT Office Visit Department of Cardiovascular Medicine in [place], [place] [address] [place] [phone] Jean Claude Kimball M.D. Fibrillation Atrial (AF) NOS (Primary Dx) 12/10/2023 11:30 AM CDT Office Visit Department of Urology in [place], [place] [address] [place] [phone] Rachel Guillory M.D. Urgency Urinary (Primary Dx) 12/10/2023 10:45 AM CDT Procedure visit Department of Urology in [address] [phone] Chanel Concepcion M.D., M.B.A. Teri Coto RCuongNCuong Symptom Urinary; Nocturia 12/06/2023 10:37 AM CDT - 12/06/2023 11:59 PM CDT Hospital Encounter Department of Cardiovascular Diseases in [place], [place] [address] [place] [phone] Jean Claude Kimball M.D. Atrial Fibrillation Other Persistent (HCC) Discharge Disposition: Home or Self Care 11/26/2023 Clinical Communication Department of Cardiovascular Medicine in [address] [phone] Jean Claude Kimball M.D. Appointment 11/21/[address] [address] Merrill Mejia M.D. Tremor (Primary Dx); Amnesia; Diabetes Mellitus Type 2 With Diabetic Neuropathy (HCC) 10/24/2023 11:57 AM FOLDING MACHINE FEEDER - 10/24/2023 11:59 PM FOLDING MACHINE FEEDER Hospital Encounter Department of Cardiovascular Diseases in [place], [place] [address] [place] [phone] Jean Claude Kimball M.D. Atrial Fibrillation Other Persistent (HCC) Discharge Disposition: Home or Self Care 10/23/2023 11:38 AM FOLDING MACHINE FEEDER - 10/23/2023 11:59 PM FOLDING MACHINE FEEDER Hospital Encounter Department of Laboratory Medicine and Pathology, [facility] in [place], [place] [address] [place] [phone] Jean Claude Kimball M.D. Atrial Fibrillation Other Persistent (HCC); Fatty Liver Discharge Disposition: Home or Self Care 10/23/2023 11:20 AM FOLDING MACHINE FEEDER - 10/23/2023 11:37 AM FOLDING MACHINE FEEDER Hospital Encounter Department of Radiology, [facility] in [place], [place] [address] [place] [phone] Jean Claude Kimball M.D. Atrial Fibrillation Other Persistent (HCC) Discharge Disposition: Home or Self Care 10/23/2023 12:30 PM FOLDING MACHINE FEEDER Diagnostic Division of Pulmonary Medicine in [place], [place] [address] [place] [phone] Jean Claude Kimball M.D. Atrial Fibrillation Other Persistent (HCC) 10/23/2023 10:55 AM FOLDING MACHINE FEEDER Ancillary Procedure Department of Radiology in [place], [place] [address] [place] [phone] Jean Claude Kimball M.D. Atrial Fibrillation Other Persistent (HCC) 10/23/2023 9:00 AM FOLDING MACHINE FEEDER Comprehensive Visit Department of Cardiovascular Medicine in [place], [place] [address] [place] [phone] Jean Claude Kimball M.D. Atrial Fibrillation Other Persistent (HCC) (Primary Dx); Fatty Liver 10/22/2023 4:45 PM FOLDING MACHINE FEEDER Clinical Communication Virtual Review in [place], [place] [address] [place] [phone] Pre-visit Intake 10/18/2023 3:05 PM FOLDING MACHINE FEEDER - 10/18/2023 11:42 PM FOLDING MACHINE FEEDER Emergency [facility] Emergency Department [address] [place] [phone] Newton Garcia M.D. Atrial Fibrillation Unspecified (HCC) [...] bedtime. 10/16/2023 Active Accu-Chek Guide Glucose Meter muscogee USE TO TEST BLOOD SUGARS TWICE DAILY 09/06/2023 Active metFORMIN XR (GLUCOPHAGE-XR) 500 mg 24 hr tablet Take 500 mg by mouth daily. 06/06/2023 Active sqdlkgfl-qwf-phdd -FA-vit K-lut 8 mg iron-400 mcg-50 mcg [...] often do you attend chur ch or pentecostalism services? More than 4 times per year 01/11/2020 Do you belong to any clubs o r organizations such as christian groups, unions, fraternal or athletic groups, or [...] and heating? Not hard at all 01/11/2020 [facility] - Occupational Stress Questionnaire Answer Date [...] T Respiratory Rate 15 10/18/2023 11:15 PM FOLDING MACHINE FEEDER Oxygen Saturation 95% 10/18/2023 11:15 PM FOLDING MACHINE FEEDER Inhaled Oxygen Concentration - - Weight 97.8 kg (215 lb 9.8 oz) 10/23/2023 8:50 A M FOLDING MACHINE FEEDER Height 180 cm (5' 10.87) 10/23/2023 8:50 AM FOLDING MACHINE FEEDER Body Mass Index 30.19 10/23/2023 8:50 AM FOLDING MACHINE FEEDER Plan of Treatment Upcoming Encounters Date Type Department Care Team (Latest Contact Info) Description 01/29/2024 10:45 AM CDT Clinical Communication Virtual Review in [place], [place] 200 [place] [phone] 02/05/2024 1:00 PM CDT Comprehensive Visit Department of Neurology in [place], [place] [address] [place] [phone] Arturo Barfield M.D. [address] [place] [phone] Medical Devices Implanted Type Area Butter Fat Tester Device Identifier Shelf Expiration Date Model / Serial / Lot Screw Frs 22mm [id number] - Gomez [id number] Implanted:Qty: 1 on 09/05/2011 Hardware e.g. pins/screws /rods BioMet Description:Device Manufactu rer - [employer] Device Status Text - [id number]. K-Wire-Ss 4 Smooth .035 - Gomez [id number] Implanted:Qty: 1 on 09/05/2011 Hardware e.g. pins/screws /rods Peañ Description:Device Manufactu rer - [place] Yuan.. Device Status Text - [id number]. K-Wire-Ss 4 Smooth .062 - Gomez [id number] Implanted:Qty: 2 on 09/05/2011 Hardware e.g. pins/screws /rods [place] Description:Device Manufactu rer - Peña [employer].. Device [...] 3:41 PM CDT Fibrillation Atrial (AF) NOS CA MARY PST VOID RESID US NON IMG Routine 12/10/2023 10:45 AM CDT Symptom Urinary Nocturia CA UROFLOWMETRY CMPLX Routine 12/10/2023 10:45 AM CDT Symptom Urinary Nocturia HOLTER MONITOR - IN CLINIC SCOUTS Routine 12/08/2023 11:00 AM CDT Atrial Fibrillation Other Persistent (HCC) (TTE) 2D ECHO DOPPLER COLOR Routine 10/24/2023 1:24 PM FOLDING MACHINE FEEDER Atrial Fibrillation Other Persistent (HCC) D-DIMER, P Routine 10/23/2023 11:54 AM FOLDING MACHINE FEEDER Fatty Liver HEPATIC FUNCTION PANEL, S Routine 10/23/2023 11:54 AM FOLDING MACHINE FEEDER Atrial Fibrillation Other Persistent (HCC) DX CHEST AP OR PA AND LATERAL 2 VIEWS RAD - Routine (most inpatients and all outpatients) 10/23/2023 11:30 AM FOLDING MACHINE FEEDER Atrial Fibrillation Other Persistent (HCC) INTERPRETATION OF OUTSIDE CT ABDOMEN AND OR PELVIS RAD - Routine (most inpatients and all outpatients) 10/23/2023 10:53 AM FOLDING MACHINE FEEDER Atrial Fibrillation Other Persistent (HCC) PUL HOME OVERNIGHT OXIMETRY Routine 10/23/2023 Atrial Fibrillation Other Persistent (HCC) DX CHEST AP OR PA AND LATERAL 2 VIEWS RAD - Semiurgent (Fast; most ED patients; some inpatients) 10/18/2023 8:46 PM FOLDING MACHINE FEEDER TROPONIN T, 2H/6H, 5TH GEN, P Timed 10/18/2023 5:13 PM FOLDING MACHINE FEEDER NT-PRO B-TYPE NATRIURETIC PEPTIDE (BNP), S STAT 10/18/2023 3:27 PM FOLDING MACHINE FEEDER PROTHROMBIN TIME (PT), P STAT 10/18/2023 3:27 PM FOLDING MACHINE FEEDER TROPONIN T, BASELINE, 5TH GEN, P STAT 10/18/2023 3:27 PM FOLDING MACHINE FEEDER THYROID-STIMULATING HORMONE-SENSITIVE (S-TSH) STAT 10/18/2023 3:27 PM FOLDING MACHINE FEEDER CBC WITH DIFFERENTIAL, B STAT 10/18/2023 3:27 PM FOLDING MACHINE FEEDER BASIC METABOLIC PANEL, S/P STAT 10/18/2023 3:27 PM FOLDING MACHINE FEEDER FERRITIN, S Routine 10/18/2023 3:21 PM FOLDING MACHINE FEEDER Atrial Fibrillation Other Persistent (HCC) Fatty Liver ECG STAT 10/18/2023 3:17 PM FOLDING MACHINE FEEDER from Last 3 Months Results * Hepatic [...] Jean Claude Kimball M.D. LAB BLOOD ADD-ON [facility] [address] [place] [address], [facility] [address] [place] [address] * Thyroid Function [place] (12/10/2023 3:41 PM CDT) TSH, Sensitive 1.6 0.3 - 4.2 mIU/L 12/10/2023 7:29 PM CDT DTL Blood (Blood, Venous) 12/10/2023 3:41 PM CDT 12/10/2023 4:09 PM CDT Jean Claude Kimball M.D. LAB BLOOD ADD-ON [facility] [address] [place] [address], [place] DTL [facility] [address] [place] [address] * (ABNORMAL) Basic Metabolic Panel (12/10/2023 3:41 PM CDT) Only the most recent of2 resultswithin the time period is included. Pathologist [facility] Potassium, S 4.6 3.6 - 5.2 mmol/L [...] Jean Claude Kimball M.D. LAB BLOOD ADD-ON [facility] - [facility] [address] [place] [address], [place] DTL [facility] [address] [place] [address] * CA UROFLOWMETRY CMPLX, CA MARY PST VOID RESID US NON IMG [...] ANDREA * HOLTER MONITOR - [facility] SC[facility]TS (12/08/2023 11:00 AM CDT) Min Heart Rate [...] Duration 0 duration INFOBION IC MOME AF [place] 0 percent INFOBIONIC MOME Symptom Count 0 [...] 1%. 4. No symptomatic events were noted. Ambulatory Care Coordinator: DAYANA Rogers /DAYANA Cruz Procedure Note Josias [...] than1%. 4. No symptomatic events were noted. Ambulatory Care Coordinator: DAYANA Rogers /DAYANA Cruz Jean Claude Kimball M.D. CV CARDIAC SERVICES PROCEDURES INFOBIONIC MOME NA * (TTE) 2D ECHO DOPPLER COLOR (10/24/2023 1:24 PM FOLDING MACHINE FEEDER) Ejection Fraction 56 MC CV EIMS Mid-Ascending [...] Laterality Modality Echocardiography 10/24/2023 12:1 8 PM FOLDING MACHINE FEEDER Impressions 10/24/2023 1:36 PM FOLDING MACHINE FEEDER LEFT VENTRICLE:Normal left ventricular chamber size. Normal left ventricular wall thickness. Calculated 2-D linear left ventricular ejection fraction 56% with wzhj-ta-ysae variability. No regional wall motion abnormalities. Indeterminate [...] the Order-Level Documents. Narrative 10/24/2023 1:36 PM FOLDING MACHINE FEEDER For the complete report, see the Order-Level Documents. Hemodynamics Heart Rate: 127 BPM Blood Pressure: 136 / 72 mmHg ECG: Atrial fibrillation, BPM 100-140 Final Impressions 1. Echocardiogram performed in the setting of atrial fibrillation with rapid ventricular rate; ??hemodynamics may be inaccurate. 2. Normal left ventricular chamber size, calculated 2-D linear ejection fraction 56% with fahs-qn-juds variability. 3. Moderately enlarged left atrial size. [...] size, calculated 2-D linear ejectionfraction 56% with nzbe-bw-wxmk variability. 3. Moderately enlarged left atrial size. [...] 2-D linear left ventricularejection fraction 56% with zdem-ca-cygp variability. No regional wallmotion abnormalities. Indeterminate left [...] PROCEDURES * (ABNORMAL) D-Dimer (10/23/2023 11:54 AM FOLDING MACHINE FEEDER) D-Dimer, P 853(H) <=500 ng/mL FEU 10/23/2023 12:33 PM FOLDING MACHINE FEEDER DTL Comment: D-dimer concentrations increase with age. ??For DVT/PE exclusion, in addition to clinical pre-test probability, age-adjusted D-dimer cut-offs are suggested for patients >50 years old. For additional information refer to the D-dimer assay in the Laboratory Test Catalog (LTC) and/or AskFunding Optionsert (FIDELINA). ----ADDITIONAL INFORMATION---- D-dimer values less than or equal to 500 ng/mL fibrinogen equivalent units (FEU) may be used in conjunction with clinical pre-test probability to exclude deep vein thrombosis (DVT) and/or pulmonary embolism (PE). Blood (Blood, Venous) 10/23/2023 11:54 AM FOLDING MACHINE FEEDER 10/23/2023 12:18 PM FOLDING MACHINE FEEDER Jean Claude Kimball M.D. LAB BLOOD ADD-ON [facility] [address] [place] [address], [facility] DTL [facility] [address] [place] [address] * DX Chest AP or PA and Lateral 2 Views (10/23/2023 11:30 AM FOLDING MACHINE FEEDER) Only the most recent of2 resultswithin the time period is included. Anatomical Region Laterality Modality Chest, Thoracic RST LOS, Tho racic ARZ LOS, Thoracic FLA LOS N/A Digital Radiography Impressions 10/23/2023 11:35 AM FOLDING MACHINE FEEDER Moderate left pleural effusion has decreased minimally in size since 10/18/2023. Very tiny right pleural effusion has also improved. Subsegmental atelectasis left base. Aortic calcification. Calcified granulomas in both lungs. Calcified right hilar node. Slight cardiac enlargement. Narrative 10/23/2023 11:35 AM FOLDING MACHINE FEEDER EXAM: ??DX CHEST AP OR PA AND LATERAL 2 VIEWS Procedure Note Jose Lopez M.D. - 10/23/2023 EXAM: DX CHEST AP OR PA AND LATERAL 2 VIEWS IMPRESSION: Moderate left pleural effusion has decreased minimally in size since10/18/2023. Very tiny right pleural effusion has also improved.Subsegmental atelectasis left base. Aortic calcification. Calcifiedgranulomas in both lungs. Calcified right hilar node. Slight cardiac enlargement. Jean Claude [facility] NG PROCEDURES * Interpretation of Outside CT Abdomen and or Pelvis (10/23/2023 10:53 AM FOLDING MACHINE FEEDER) Anatomical Region Laterality Modality Abdomen, Pelvis, Abdominal R ST LOS, Abdominal ARZ LOS, Abdominal FLA LOS, Other N/A Computed Tomography Impressions 10/25/2023 8:06 AM FOLDING MACHINE FEEDER 1. Negative. No acute or suspicious findings. No significant change since 09/30/2013. 2. This OS examination was performed in conjunction with a CT of the chest, which will be re-reported separately if requested. Narrative 10/25/2023 8:06 AM FOLDING MACHINE FEEDER EXAM: ??INTERPRETATION OF OUTSIDE CT ABDOMEN AND OR PELVIS . Outside CT of the abdomen and pelvis with IV contrast dated 09/12/2023. COMPARISON: ??Outside CT 06/16/2023 [address] [facility] [address] 09/30/2013. FINDINGS: ??Liver, pancreas, and adrenals [...] dated 09/12/2023. COMPARISON: Outside CT 06/16/[address] [facility] [address] 09/30/2013. FINDINGS: Liver, pancreas, and adrenals [...] separately if requested. Jean Claude Kimball M.D. [facility] CT PROCEDURES * PUL Home Overnight Oximetry (10/23/2023) 10/23/2023 Impressions [facility] EAP - 10/24/2023 1:58 PM FOLDING MACHINE FEEDER This is an overnight oximetry assumed to have been performed on room air as a completed questionnaire was not returned. ??Mean saturation of 94% with periods of oscillatory desaturation to as low as 82% noted during the study. ??Heart rate tracing suggests an arrhythmia. Impression: ??Abnormal. ??Desaturations concerning for a positional or sleep- related breathing disorder. ??Possible arrhythmia. Physician: Martin Humphries M.D. [id number] Narrative Procedure Note Martin Humphries M.D., Ph.D. [...] disorder. Possible arrhythmia. Physician: Martin Humphries M.D. [id number] Jean Claude Kimball M.D. PFT ORDERABLES [facility] * (ABNORMAL) Troponin T, 2h/6h, 5th Gen (10/18/2023 5:13 PM FOLDING MACHINE FEEDER) Troponin T, 2 hr, 5th gen 24(H) <=15 ng/L 10/18/2023 5:53 PM FOLDING MACHINE FEEDER STMA 2H Delta -1 ng/L 10/18/2023 5:53 PM FOLDING MACHINE FEEDER STMA 2H Delta Interp Not Changing 10/18/2023 5:53 PM FOLDING MACHINE FEEDER STMA Troponin T, 6 hr, 5th gen CANCELED ng/L 10/18/2023 5:53 PM FOLDING MACHINE FEEDER STMA Comment:Result canceled by t he ancillary. 6H Delta CANCELED ng/L 10/18/2023 5:53 PM FOLDING MACHINE FEEDER STMA Comment:Result canceled by t he ancillary. 6H Delta % CANCELED % 10/18/2023 5:53 PM FOLDING MACHINE FEEDER STMA Comment:Result canceled by t he ancillary. Blood (Blood, Venous) 10/18/2023 5:13 PM FOLDING MACHINE FEEDER 10/18/2023 5:28 PM FOLDING MACHINE FEEDER Narrative [facility] - 10/18/2023 5:53 PM FOLDING MACHINE FEEDER Specimen Information: Specimen ID: [id number] Specimen Type: Blood Specimen Collection Start Date: 10/18/2023 ??5:13 PM Specimen Received Date: 10/18/2023 ??5:28 PM Specimen ID: [id number] Specimen Type: Blood Specimen Collection Start Date: 10/18/2023 ??5:53 PM Specimen Received Date: 10/18/2023 ??5:53 PM Janice Pierce P.A.-C., M.S. LAB BLOOD TRO PONIN Performing Organization Address [facility] Co de Phone Number [facility] [address] [place] [address] * (ABNORMAL) Troponin T, Baseline, 5th gen (10/18/2023 3:27 PM FOLDING MACHINE FEEDER) Pathologist [facility] Troponin T, Baseline, 5th gen 25(H) <=15 ng/L 10/18/2023 4:[address] MACHINE FEEDER [facility] Blood (Blood, Venous) 10/18/2023 3:27 PM FOLDING MACHINE FEEDER 10/18/2023 3:32 PM FOLDING MACHINE FEEDER Janice Pierce P.A.-C., M.S. LAB BLOOD TRO PONIN Performing Organization Address [facility] de Phone Number [facility] [address] [place] [address] * (ABNORMAL) NT-Pro B-Type Natriuretic Peptide (BNP) (10/18/2023 3:27 PM FOLDING MACHINE FEEDER) Pathologist [facility] NT-Pro BNP 1599(H) <=540 pg/mL 10/18/2023 4:[address] MACHINE FE[address] [facility] Comment: NT-proBNP values less than 300 pg/mL [...] failure. Blood (Blood, Venous) 10/18/2023 3:27 PM FOLDING MACHINE FEEDER 10/18/2023 3:32 PM FOLDING MACHINE FEEDER Janice Pierce P.A.-C. M.S. LAB BLOOD ADD -ON Performing Organization Address [facility] Co de Phone Number [facility] [address] STMA [facility] [address] [place] [address] * (ABNORMAL) Prothrombin Time (PT) (10/18/2023 3:27 PM FOLDING MACHINE FEEDER) Pathologist [facility] Prothrombin Time, P 23.8(H) 9.4 - 12.5 sec 10/18/2023 4:00 PM FOLDING MACHINE FEEDER DTL INR 2.1 0.9 - 1.1 10/18/2023 4:00 PM FOLDING MACHINE FEEDER DTL Comment: ----ADDITIONAL INFORMATION---- Standard intensity warfarin therapeutic range: 2.0 to 3.0 ?? High intensity warfarin therapeutic range: 2.5 to 3.5 Blood (Blood, Venous) 10/18/2023 3:27 PM FOLDING MACHINE FEEDER 10/18/2023 3:40 PM FOLDING MACHINE FEEDER Janice Pierce P.A.-C., M.S. LAB BLOOD ADD -ON Performing Organization Address [facility] Co de Phone Number [facility] [address] [place] [address], [facility] DTL [facility] [address] [place] [address] * (ABNORMAL) CBC with Differential, Blood (10/18/2023 3:27 PM FOLDING MACHINE FEEDER) Hemoglobin 13.1(L) 13.2 - 16.6 g/dL 10/18/2023 3:39 PM FOLDING MACHINE FEEDER STMA Hematocrit 40.1 38.3 - 48.6 % 10/18/2023 3:39 PM FOLDING MACHINE FEEDER STMA Erythrocytes 4.24(L) 4.35 - 5.65 x10(12)/L 10/18/2023 3:39 PM FOLDING MACHINE FEEDER STMA MCV 94.6 78.2 - 97.9 fL 10/18/2023 3:39 PM FOLDING MACHINE FEEDER STMA RBC Distrib Width 12.7 11.8 - 14.5 % 10/18/2023 3:39 PM FOLDING MACHINE FEEDER STMA Platelet Count 582(H) 135 - 317 x10(9)/L 10/18/2023 3:39 PM FOLDING MACHINE FEEDER STMA Leukocytes 11.4(H) 3.4 - 9.6 x10(9)/L 10/18/2023 3:39 PM FOLDING MACHINE FEEDER STMA Neutrophils 8.73(H) 1.56 - 6.45 x10(9)/L 10/18/2023 3:39 PM FOLDING MACHINE FEEDER DHPM Lymphocytes 1.86 0.95 - 3.07 x10(9)/L 10/18/2023 3:39 PM FOLDING MACHINE FEEDER STMA Monocytes 0.67 0.26 - 0.81 x10(9)/L 10/18/2023 3:39 PM FOLDING MACHINE FEEDER STMA Eosinophils 0.06 0.03 - 0.48 x10(9)/L 10/18/2023 3:39 PM FOLDING MACHINE FEEDER STMA Basophils 0.07 0.01 - 0.08 x10(9)/L 10/18/2023 3:39 PM FOLDING MACHINE FEEDER STMA Blood (Blood, Venous) 10/18/2023 3:27 PM FOLDING MACHINE FEEDER 10/18/2023 3:32 PM FOLDING MACHINE FEEDER Janice Pierce P.A.-C., M.S. LAB BLOOD ADD -ON [facility] [address] [place] [address], [facility] STMA [facility] [address] [place] [address] DHPM [facility] [address] [place] [address] * S-TSH (Thyroid-Stimulating Hormone - Sensitive) (10/18/2023 3:27 PM FOLDING MACHINE FEEDER) [facility] TSH, Sensitive 1.2 0.3 - 4.2 mIU/L 10/18/2023 4:16 PM FOLDING MACHINE FEEDER DTL Blood (Blood, Venous) 10/18/2023 3:27 PM FOLDING MACHINE FEEDER 10/18/2023 3:51 PM FOLDING MACHINE FEEDER Janice Pierce P.A.-C., M.S. LAB BLOOD ADD -ON [facility] [address] [place] [address] * (ABNORMAL) Ferritin (10/18/2023 3:21 PM FOLDING MACHINE FEEDER) Ferritin, S 843(H) 31 - 409 mcg/L 10/23/2023 12:00 PM FOLDING MACHINE FEEDER DTL Blood (Blood, Venous) 10/18/2023 3:21 PM FOLDING MACHINE FEEDER 10/23/2023 11:22 AM FOLDING MACHINE FEEDER Jean Claude Kimball M.D. LAB BLOOD ADD-ON Performing Organization Address [facility] Co de Phone Number [facility] [address] [place] [address] * ECG 12 Lead (10/18/2023 3:17 PM FOLDING MACHINE FEEDER) Pathologist [facility] Ventricular Rate ECG/Min 134 BPM MUSE QRSD Interval 78 ms MUSE QT Interval 274 ms MUSE QTC Interval 409 ms MUSE R [place] -22 degrees MUSE T Wave [place] 155 degrees MUSE 10/18/2023 3:17 PM FOLDING MACHINE FEEDER 10/18/2023 3:21 PM FOLDING MACHINE FEEDER Impressions MUSE - 10/18/2023 3:21 PM FOLDING MACHINE FEEDER Atrial fibrillation with rapid ventricular response with [...] DAYANA Bowman Newton Garcia M.D. ECG ORDERABLES MUSE NA from Last 3 Months Advance Directives For more information, please contact: [phone] Documents on File Type Date Recorded Patient Periodontist Expl anation Advance Directives 10/13/2009 12:00 AM Leg acy document. See document viewer. Advance Directives 10/13/2009 12:00 AM Leg acy document. See document viewer. Advance Directives 05/06/2007 12:00 AM [place] document. See document viewer. Care Teams Pediatric Physician Relationship Specialty Start Date End Date Elsewhere, Pcp PCP - General Internal Medicine 10/07/23
--- OUTSIDE RECORDS SUMMARY | 2024-01-08 07:18 | XMS_ITS | Encounter Summary ---
Author Name Unknown Organization [facility] Address [address] [place] [address] Care Team Providers Care Superior Court Justice Name Role Phone Elsewhere, Pcp Primary Care Provider Unavailabl e Reason for Referral * Outpatient (Routine) - Closed Specialty Diagnoses / Procedures Referred By Contac t Referred To Contact Diagnoses Atrial Fibrillation Other Persistent (HCC) Procedures Echo Transthoracic (TTE) Jean Claude Kimball M.D. [address] [place] [address] [facility] Referral ID Status Reason Start Date Expiration Date Visits Re quested Visits Authorized [id number] Closed 10/23/2023 10/22/2024 1 1 CTOR EMERGENCY Reason for Visit * Outpatient (Routine) - Closed Specialty Diagnoses / Procedures Referred By Contalex ng Referred To Contact Diagnoses Atrial Fibrillation Other Persistent (HCC) Procedures Echo Transthoracic (TTE) Jean Claude Kimball M.D. [address] [place] [address] [facility] Referral ID Status Reason Start Date Expiration Date Visits Re quested Visits Authorized [id number] Closed 10/23/2023 10/22/2024 1 1 Encounter Details Date Type Department Care Team (Latest Contact Info) Description 10/24/2023 11:57 AM DIRECTOR EMERGENCY - 10/24/2023 11:59 PM DIRECTOR EMERGENCY Hospital Encounter Department of Cardiovascular Diseases in [place], [place] [address] [place] [phone] Jean Claude Kimball M.D. [address] [place] [address] Atrial Fibrillation Other Persistent (HCC) Discharge Disposition: Home or Self Care Social [...] How often do you attend chur or christianity services? More than 4 times per year 01/11/2020 Do you belong to any clubs o r organizations such as bahai groups, unions, fraternal or athletic groups, or [...] and heating? Not hard at all 01/11/2020 [facility] Occupat ional Health - Occupational Stress [...] the skin as needed. Apply to foot losartan (COZAAR) 100 mg tablet Take 100 [...] by mouth daily. 90 tablet 3 05/07/2023 vqgsxvil-ueq-bjem-FA- vit K-lut 8 mg iron-400 mcg-50 mcg [...] AM CDT Clinical Communication Virtual Review in [address] [phone] 02/05/2024 1:00 PM CDT Comprehensive Visit Department of Neurology in [address] [address] Arturo Barfield M.D. [address] [place] [phone] documented as of this encounter Procedures Procedure Name Priority Date/Time Associated Diagnosis Comments (TTE) 2D ECHO DOPPLER COLOR Routine 10/24/2023 1:24 PM DIRECTOR EMERGENCY Atrial Fibrillation Other Persistent (HCC) documented in this encounter Results * (TTE) 2D ECHO DOPPLER COLOR (10/24/2023 1:24 PM DIRECTOR EMERGENCY) Ejection Fraction 56 MC CV EIMS Mid-Ascending [...] Laterality Modality Echocardiography 10/24/2023 12:1 8 PM DIRECTOR EMERGENCY Impressions 10/24/2023 1:36 PM DIRECTOR EMERGENCY LEFT VENTRICLE:Normal left ventricular chamber size. Normal left ventricular wall thickness. Calculated 2-D linear left ventricular ejection fraction 56% with qcfa-mu-ghoq variability. No regional wall motion abnormalities. Indeterminate [...] the Order-Level Documents. Narrative 10/24/2023 1:36 PM DIRECTOR EMERGENCY For the complete report, see the Order-Level Documents. Hemodynamics Heart Rate: 127 BPM Blood Pressure: 136 / 72 mmHg ECG: Atrial fibrillation, BPM 100-140 Final Impressions 1. Echocardiogram performed in the setting of atrial fibrillation with rapid ventricular rate; ??hemodynamics may be inaccurate. 2. Normal left ventricular chamber size, calculated 2-D linear ejection fraction 56% with gpck-zh-vtqh variability. 3. Moderately enlarged left atrial size. [...] size, calculated 2-D linear ejectionfraction 56% with blqr-qp-nfht variability. 3. Moderately enlarged left atrial size. [...] 2-D linear left ventricularejection fraction 56% with omne-hb-sbbn variability. No regional wallmotion abnormalities. Indeterminate left [...] Jean Claude Kimball M.D. CV ECHO PROCEDURES documented in this encounter Visit Diagnoses Diagnosis Atrial Fibrillation Other Persistent (HCC) documented in this encounter Additional Health Concerns Assessment Noted Time PHQ-9 Depression Total Score: 1 07/16/20 13 2:30 PM DIRECTOR EMERGENCY documented as of this encounter Care Teams Superior Court Justice Relationship Specialty Start Date End Date Elsewhere, Pcp PCP - General Internal Medicine 10/07/23 documented as of this encounter
--- OUTSIDE RECORDS SUMMARY | 2024-01-08 07:18 | XMS_ITS | Encounter Summary ---
Author Name Unknown Organization [facility] Address [address] [place] [address] Care Team Providers Care Support Coordinator Name Role Phone Elsewhere, Pcp Primary Care Provider Unavailabl e Reason for Referral * Outpatient (Routine) - Authorized Specialty Diagnoses / Procedures Referred By Contac t Referred To Contact Diagnoses Atrial Fibrillation Other Persistent (HCC) Procedures ECG Heart Rhythm Monitor (Holter) Jean Claude Kimball M.D. [address] [place] [address] [facility] Referral ID Status Reason Start Date Expiration Date V isits Requested Visits Authorized [id number] Authorized 11/28/2023 11/27/2024 1 1 * Outpatient (Routine) - Closed Specialty Diagnoses / Procedures Referred By Contac t Referred To Contact Diagnoses Atrial Fibrillation Other Persistent (HCC) Procedures ECG 12 Lead Jean Claude Kimball M.D. [address] [place] [address] [facility] Referral ID Status Reason Start Date Expiration Date Visits Re quested Visits Authorized [id number] Closed 11/28/2023 11/27/2024 1 1 * Outpatient (Routine) - Closed Specialty Diagnoses / Procedures Referred By Contac t Referred To Contact Cardiovascular Disease Jean Claude Kimball M.D. [address] [place] [address] [facility] Referral ID Status Reason Start Date Expiration Date Visits Re quested Visits Authorized [id number] Closed 11/28/2023 05/29/2025 1 1 Reason for Visit * Reason Onset Date Comments Appointment 11/26/2023 Encounter Details Date Type Department Care Team (Latest Contact Info) Description 11/26/2023 Clinical Communication Department of Cardiovascular Medicine in [place], [place] [address] [place] [address] Jean Claude Kimball M.D. [address] [place] [address] Appointment Social History Tobacco Use Types Packs/Day Years [...] often do you attend chur ch or yazidi services? More than 4 times per year [...] and heating? Not hard at all 01/11/2020 [employer] of Occupat ional [facility] - Occupational Stress Questionnaire Answer Date Recorded [...] AM CDT Clinical Communication Virtual Review in [place], [place] [address] [place] [address] 02/05/2024 1:00 PM CDT Comprehensive Visit Department of Neurology in [place], [place] [address] [place] [address] Arturo Barfield M.D. [address] [place] [address] Scheduled Orders Name Type Priority Associated Diagnoses Orde r Schedule ECG 12 Lead ECG Routine Atrial Fibrillation Other Persistent (HCC) Expected: 12/12/2023, Expires: 02/27/2025 Scheduled Referrals Name Type Priority Associated Diagnoses Order Schedule Cardiovascular Disease office visit (clinic) Outpatient Referral Routine Expect ed: 12/12/2023, Expires: 02/27/2025 documented as of this encounter Results * HOLTER MONITOR - IN CLINIC CRM DEVELOPER (12/08/2023 11:00 AM CDT) Min Heart Rate [...] Duration 0 duration INFOBION IC MOME AF [place] 0 percent INFOBIONIC MOME Symptom Count 0 [...] 1%. 4. No symptomatic events were noted. Acid Condenser: DAYANA Rogers /DAYANA Cruz Procedure Note Josias [...] than1%. 4. No symptomatic events were noted. Acid Condenser: DAYANA Rogers /DAYANA Cruz Jean Claude Kimball M.D. CV CARDIAC SERVICES PROCEDURES INFOBIONIC MOME NA documented in this encounter Visit Diagnoses Diagnosis Atrial Fibrillation Other Persistent (HCC)- Primary Atrial Fibrillation Other Persistent (HCC) documented in this encounter Additional Health Concerns Assessment Noted Time PHQ-9 Depression Total Score: 1 07/16/20 13 2:30 PM BUSINESS ACCOUNT MANAGER documented as of this encounter Care Teams Support Coordinator Relationship Specialty Start Date End Date Elsewhere, Pcp PCP - General Internal Medicine 10/07/23 documented as of this encounter
--- OUTSIDE RECORDS SUMMARY | 2024-01-08 07:18 | XMS_ITS | Encounter Summary ---
Author Name Unknown Organization [facility] Address [address] [place] [address] Care Team Providers Care Project Coach Name Role Phone Elsewhere, Pcp Primary Care Provider Unavailabl e Encounter Details Date Type Department Care Team (Latest Contact Info) Description 10/23/2023 10:55 AM FLY WINDER Ancillary Procedure Department of Radiology in [place], [place] [address] [place] [address] Jean Claude Kimball M.D. [address] [place] [address] Atrial Fibrillation Other Persistent (HCC) Social History Tobacco Use Types Packs/Day Years [...] often do you attend chur ch or restorationism services? More than 4 times per year 01/11/2020 Do you belong to any clubs o r organizations such as synagogue groups, unions, fraternal or athletic groups, or [...] and heating? Not hard at all 01/11/2020 [facility] of Occupat ional Health - Occupational [...] AM CDT Clinical Communication Virtual Review in [place], [place] [address] [place] [address] 02/05/2024 1:00 PM CDT Comprehensive Visit Department of Neurology in [place], [place] [address] [place] [phone] Arturo Barfield M.D. [address] [place] [phone] documented as of this encounter Procedures Procedure Name Priority Date/Time Associated Diagnosis Comments INTERPRETATION OF OUTSIDE CT ABDOMEN AND OR PELVIS RAD - Routine (most inpatients and all outpatients) 10/23/2023 10:53 AM FLY WINDER Atrial Fibrillation Other Persistent (HCC) documented in this encounter Results * Interpretation of Outside CT Abdomen and or Pelvis (10/23/2023 10:53 AM FLY WINDER) Anatomical Region Laterality Modality Abdomen, Pelvis, Abdominal R ST LOS, Abdominal ARZ LOS, Abdominal FLA LOS, Other N/A Computed Tomography Impressions 10/25/2023 8:06 AM FLY WINDER 1. Negative. No acute or suspicious findings. No significant change since 09/30/2013. 2. This OS examination was performed in conjunction with a CT of the chest, which will be re-reported separately if requested. Narrative 10/25/2023 8:06 AM FLY WINDER EXAM: ??INTERPRETATION OF OUTSIDE CT ABDOMEN AND OR PELVIS . Outside CT of the abdomen and pelvis with IV contrast dated 09/12/2023. COMPARISON: ??Outside CT 06/16/2023 and [facility] CT 09/30/2013. FINDINGS: ??Liver, pancreas, and adrenals [...] dated 09/12/2023. COMPARISON: Outside CT 06/16/2023 and [facility] CT 09/30/2013. FINDINGS: Liver, pancreas, and adrenals [...] Jean Claude Kimball M.D. IMG CT PROCEDURES documented in this encounter Visit Diagnoses Diagnosis Atrial Fibrillation Other Persistent (HCC) documented in this encounter Additional Health Concerns Assessment Noted Time PHQ-9 Depression Total Score: 1 07/16/20 13 2:30 PM FLY WINDER documented as of this encounter Care Teams Project Coach Relationship Specialty Start Date End Date Elsewhere, Pcp PCP - General Internal Medicine 10/07/23 documented as of this encounter
--- OUTSIDE RECORDS SUMMARY | 2024-01-08 07:18 | XMS_ITS | Encounter Summary ---
Author Name Unknown Organization [facility] Address [address] [place] [address] Care Team Providers Care Chief Scientific Officer Name Role Phone Elsewhere, Pcp Primary Care Provider Unavailabl e Encounter Details Date Type Department Care Team (Late st Contact Info) Description 10/23/2023 12:30 PM METAL CNC OPERATOR Diagnostic Division of Pulmonary Medicine in [place], [place] [address] [place] [phone] Jean Claude Kimball M.D. [address] [place] [address] Atrial Fibrillation Other Persistent (HCC) Social History [...] often do you attend chur ch or shinto services? More than 4 times per year 01/11/2020 Do you belong to any clubs o r organizations such as confucianism groups, unions, fraternal or athletic groups, or [...] and heating? Not hard at all 01/11/2020 [facility] of Occupat ional Health - Occupational Stress [...] AM CDT Clinical Communication Virtual Review in [place], [place] [address] [place] [address] 02/05/2024 1:00 PM CDT Comprehensive Visit Department of Neurology in [place], [place] [address] [place] [phone] Arturo Barfield M.D. [address] [place] [phone] documented as of this encounter Procedures Procedure Name Priority Date/Time Associated Diagnosis Comments PUL HOME OVERNIGHT OXIMETRY Routine 10/23/2023 Atrial Fibrillation Other Persistent (HCC) documented in this encounter Results * PUL Home Overnight Oximetry (10/23/2023) 10/23/2023 Impressions [place] NVISION EAP - 10/24/2023 1:58 PM METAL CNC OPERATOR This is an overnight oximetry assumed to have been performed on room air as a completed questionnaire was not returned. ??Mean saturation of 94% with periods of oscillatory desaturation to as low as 82% noted during the study. ??Heart rate tracing suggests an arrhythmia. Impression: ??Abnormal. ??Desaturations concerning for a positional or sleep- related breathing disorder. ??Possible arrhythmia. Physician: Martin Humphries M.D. [id number] Narrative Procedure Note Martin Humphries M.D., Ph.D. [...] disorder. Possible arrhythmia. Physician: Martin Humphries M.D. [id number] Jean Claude Kimball M.D. PFT ORDERABLES [facility] documented in this encounter Visit Diagnoses Diagnosis Atrial Fibrillation Other Persistent (HCC) documented in this encounter Additional Health Concerns Assessment Noted Time PHQ-9 Depression Total Score: 1 07/16/20 13 2:30 PM METAL CNC OPERATOR documented as of this encounter Care Teams Chief Scientific Officer Relationship Specialty Start Date End Date Elsewhere, Pcp PCP - General Internal Medicine 10/07/23 documented as of this encounter
--- OUTSIDE RECORDS SUMMARY | 2024-01-08 07:18 | XMS_ITS | Encounter Summary ---
Author Name Unknown Organization [facility] Address [address] [place] [address] Care Team Providers Care Professor Of Practice Name Role Phone Elsewhere, Pcp Primary Care Provider Unavailabl e Encounter Details Date Type Department Care Team (Late st Contact Info) Description 11/21/2023 [facility] [address] [place] [address] Merrill Mejia M.D. [address] [place] [phone] Tremor (Primary Dx); Amnesia; Diabetes Mellitus Type 2 With Diabetic Neuropathy (HCC) Social History Tobacco Use Types Packs/Day [...] often do you attend chur ch or anabaptist services? More than 4 times per year 01/11/2020 Do you belong to any clubs o r organizations such as adventism groups, unions, fraternal or athletic groups, or [...] and heating? Not hard at all 01/11/2020 [facility] of Occupat ional Health - Occupational [...] AM CDT Clinical Communication Virtual Review in [place], [place] [address] [place] [address] 02/05/2024 1:00 PM CDT Comprehensive Visit Department of Neurology in [place], [place] [address] [place] [phone] Arturo Barfield M.D. [address] [place] [phone] documented as of this encounter Visit Diagnoses Diagnosis Tremor- Primary Amnesia Diabetes Mellitus Type 2 With Diabetic Neuropathy (HCC) documented in this encounter Additional Health Concerns Assessment Noted Time PHQ-9 Depression Total Score: 1 07/16/20 13 2:30 PM IMPORT/EXPORT AGENT documented as of this encounter Care Teams Professor Of Practice Relationship Specialty Start Date End Date Elsewhere, Pcp PCP - General Internal Medicine 10/07/23 documented as of this encounter
--- OUTSIDE RECORDS SUMMARY | 2024-01-08 07:18 | XMS_ITS | Encounter Summary ---
Author Name Unknown Organization [facility] Address [address] [place] [address] Care Team Providers Care Commercial Hvac Service Technician Name Role Phone Elsewhere, Pcp Primary Care Provider Unavailabl e Reason for Referral * Outpatient (Routine) - Authorized Specialty Diagnoses / Procedures Referred By Contac t Referred To Contact Urology Rachel Guillory M.D. [address] [place] [phone] [facility] Referral ID Status Reason Start Date Expiration Date V isits Requested Visits Authorized [id number] Authorized 12/10/2023 06/10/2025 1 1 * Outpatient (Routine) - Authorized Specialty Diagnoses / Procedures Referred By Contac t Referred To Contact Diagnoses Urgency Urinary Procedures URO Uroflow Rachel Guillory M.D. [address] [place] [phone] [facility] Referral ID Status Reason Start Date Expiration Date V isits Requested Visits Authorized [id number] Authorized 12/10/2023 12/09/2024 1 1 Reason for Visit * Outpatient (Routine) - Closed Specialty Diagnoses / Procedures Referred By Contac t Referred To Contact Urology Chanel Concepcion M.D., M.B.A. [address] [place] [phone] [facility] Referral ID Status Reason Start Date Expiration Date Visits Re quested Visits Authorized [id number] Closed 06/10/2023 06/09/2026 1 1 Encounter Details Date Type Department Care Team (Late st Contact Info) Description 12/10/2023 11:30 AM CDT Office Visit Department of Urology in [place], [place] [address] [place] [address] Rachel Guillory M.D. [address] [place] [address] Urgency Urinary (Primary Dx) Social History Tobacco Use Types Packs/Day Years [...] often do you attend chur ch or taoism services? More than 4 times per year 01/11/2020 Do you belong to any clubs o r organizations such as roman catholic groups, unions, fraternal or athletic groups, or [...] at all 01/11/2020 [facility] [place] of Occupat ional Health - Occupational Stress [...] as of this encounter Progress Notes * Rachel Guillory M.D. - 12/10/2023 11:30 AM CDT SUBJECTIVE CHIEF COMPLAINT/REASON FOR VISIT Urinary urgency follow-up SECURITY REPRESENTATIVE calendar HISTORY OF PRESENT ILLNESS Mr. Alaniz is a very pleasant 83-year-old gentleman who presents today for follow-up of urinary urgency and frequency. 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 He was started on mirabegron in April 2023 for bothersome urinary urgency and frequency. Since being on the medication, he is noticed significant improvement in his lower urinary tract symptoms. He is overall pleased. Empties his bladder well. Denies any hematuria, infections. Has his blood pressure checked by his PCP and does not have any concerns regarding hypertension since starting the medication. Unfortunately, he has had difficulties with atrial fibrillation since his last follow-up appointment with Urology. Did have 1 cardioversion, and was more recently started on amiodarone back in October 2023. The following portions of the patient's history were reviewed and updated as appropriate: allergies, current medications, family history, medical history, social history, surgical history, and problem list. REVIEW OF SYSTEMS The following systems were negative: Constitutional, Gastrointestinal, Genitourinary OBJECTIVE There were no vitals filed for this visit. PHYSICAL EXAM Constitutional: He is oriented to person, place, and time. He appears well- developed and well-nourished. HENT: Head: Normocephalic and atraumatic. Eyes: Conjunctivae are normal. Pulmonary/Chest: Effort normal. Neurological: He is alert and oriented to person, place, and time. Psychiatric: He has a normal mood and affect. His behavior is normal. ASSESSMENT / PLAN #1 Urgency Urinary It was my pleasure to meet with Mr. Alaniz and his today in clinic for follow-up. I had an pleased that he is having adequate control of his urinary urgency on Myrbetriq. No concerns regarding hypertension. He is emptying well on uroflow today. Plan for follow-up in 1 year with Urology withuroflow. All questions answered. Signed by: Rachel Guillory M.D. 12/10/2023 1:27 PM CDT documented in this encounter Plan of Treatment Upcoming Encounters Date Type Department Care Team (Latest Contact Info) Description 01/29/2024 10:45 AM CDT Clinical Communication Virtual Review in [place] [address] [place] [address] 02/05/2024 1:00 PM CDT Comprehensive Visit Department of Neurology in [place], [place] [address] [place] [address] Arturo Barfield M.D. [address] [place] [address] Scheduled Orders Name Type Priority Associated Diagnoses Orde r Schedule URO Uroflow Procedure Routine Urgency Urinary Expected: 12/09/2024, Expires: 03/10/2025 Scheduled Referrals Name Type Priority Associated Diagnoses Orde r Schedule Urology office visit (clinic) Outpatient Referral Routine Expected: 12/09/2024, Expires: 03/10/2025 documented as of this encounter Visit Diagnoses Diagnosis Urgency Urinary- Primary documented in this encounter Additional Health Concerns Assessment Noted Time PHQ-9 Depression Total Score: 1 07/16/20 13 2:30 PM CAUSTICS LOADER documented as of this encounter Care Teams Commercial Hvac Service Technician Relationship Specialty Start Date End Date Elsewhere, Pcp PCP - General Internal Medicine 10/07/23 documented as of this encounter
--- OUTSIDE RECORDS SUMMARY | 2024-01-08 07:18 | XMS_ITS | Encounter Summary ---
Author Name Unknown Organization [facility] Address [address] [place] [address] Care Team Providers Care Inspector Open Die Name Role Phone Elsewhere, Pcp Primary Care Provider Unavailabl e Reason for Visit * Reason Onset Date Comments Pre-visit Intake 10/22/2023 Encounter Details Date Type Department Care Team (Latest Contact Info) Description 10/22/2023 4:45 PM FUNERAL CAR DRIVER Clinical Communication Virtual Review in [place], [place] [address] [place] [address] Pre-visit Intake Social History Tobacco Use Types [...] often do you attend chur ch or yazdanism services? More than 4 times per year [...] and heating? Not hard at all 01/11/2020 [facility] - Occupational Stress Questionnaire Answer [...] AM CDT Clinical Communication Virtual Review in [place], [place] [address] [place] [address] 02/05/2024 1:00 PM CDT Comprehensive Visit Department of Neurology in [place], [place] [address] [place] [phone] Arturo Barfield M.D. [address] [place] [phone] documented as of this encounter Visit Diagnoses Not on filedocumented in this encounter Additional Health Concerns Assessment Noted Time PHQ-9 Depression Total Score: 1 07/16/20 13 2:30 PM FUNERAL CAR DRIVER documented as of this encounter Care Teams Inspector Open Die Relationship Specialty Start Date End Date Elsewhere, Pcp PCP - General Internal Medicine 10/07/23 documented as of this encounter
--- OUTSIDE RECORDS SUMMARY | 2024-01-08 07:18 | XMS_ITS | Encounter Summary ---
Author Name Unknown Organization [facility] Address [address] [place] [address] Care Team Providers Care Shove Up Name Role Phone Elsewhere, Pcp Primary Care Provider Unavailabl e Reason for Visit * Outpatient (Routine) - Closed Specialty Diagnoses / Procedures Referred By Contac t Referred To Contact Cardiovascular Disease Jean Claude Kimball M.D. [address] [place] [address] [facility] Referral ID Status Reason Start Date Expiration Date Visits Re quested Visits Authorized [id number] Closed 11/28/2023 05/29/2025 1 1 Encounter Details Date Type Department Care Team (Latest Contact Info) Description 12/10/2023 2:00 PM CDT Office Visit Department of Cardiovascular Medicine in [place], [place] [address] [place] [phone] Jean Claude Kimball M.D. [address] [place] [phone] Fibrillation Atrial (AF) NOS (Primary Dx) Social History Tobacco Use Types [...] any clubs o r organizations such as uatsdin groups, unions, fraternal or athletic groups, or [...] Pulse 74 12/10/2023 2:07 PM CDT Temperature - - Respiratory Rate - - Oxygen Saturation - - Inhaled Oxygen Concentration - - Weight - - Height - - Body Mass Index - - documented in this encounter Patient Instructions * Patient Instructions* Oscar Guillaume M.D. - 12/10/2023 2:00 PM CDT For you: - Please continue amiodarone 200 mg daily for treatment of atrial fibrillation - Please ask your primary care doctor to send over records of your sleep study and lab work - We will check your kidney function, liver function, and thyroid function today - If there are any concerns or your atrial fibrillation returns, please call us to follow-up. For your primary care doctor: - Please check BMP, LFTs, and TSH monthly for three months, then every 3 months for a whole year, followed by every 6 months thereafter. - Please check CXR every 3 months for a whole year, then every 6 months thereafter. - Please send monitoring lab work to [place] per patient request - Please review the results of the home sleep study the patient completed and send [facility] the records - If kidney function is normal, recommend obtaining CT coronary angiogram to assess calcifications noticed on prior imaging documented in this encounter Progress Notes * Oscar Guillaume M.D. - 12/10/2023 2:00 PM CDT SUBJECTIVE CHIEF COMPLAINT/REASON FOR VISIT Ilan Alaniz is a 83 y.o. male who is here for evaluation of atrial fibrillation. HISTORY OF PRESENT ILLNESS Mr. Ilan Alaniz is a very pleasant 83 y.o. male who presents to [facility] for recently discovered atrial fibrillation with rapid ventricular rate. Please see Dr. Brothers's excellent note for the initial consult. In brief, the patient was diagnosed with AF in August 2023 after onset of palpitations. He had outside workup for ischemia and PE, both of which were negative. In September he was started on Xarelto for CHADsVASC 4. He then underwentDC cardioversion on 10/16 but subsequently went back into AF on 10/18. He then saw [facility] for follow-up on 10/23. The plan made at that visit was to obtain an updated [facility] TTE, home oximetry testing for sleep apnea, and initiate amiodarone 200 mg BID for 7 days followed by [address] coronary angiogram was also recommended pending kidney function stabilization (Cr 1.56 at the time) due to symptoms of dyspnea, though this was confounded by a left-sided pleural effusion seen on CXR. Since then, repeat TTE on 10/24 showed AF with RVR, LVEF 56%, moderately enlarged LA size, and mildly enlarged RV size w/ mildly reduced systolic function. RVSP 28 mmHg. Holter monitor on 12/07 showed sinus rhythm (average HR 73) with less than 1% burden of PVCs and no symptomatic events. His overnight oximetry was abnormal, with mean saturation of 94% with periods of desaturation to as low as 82% concerning for a positional or sleep-related breathing disorder. Today, the patient reports feeling much improved compared to last time he was in clinic. He states that the first week of the loading dose for amiodarone were particularly rough for him; he was unable to get out of bed and required assistance to complete his ADLs. However, after he transitioned to the maintenance dose he began to improve and was able to regain many of his normal functions. He states that his rhythm has been in sync at other visits. He did wonder about the frequency of monitoring labs and if they were being sent over to [facility]. He denies any issues with taking his medications.He denies any CP, SOB, lower extremity swelling, or bleeding. The patient notes that he did complete a home sleep study but does not know where the results are. REVIEW OF SYSTEMS All other systems reviewed and are negative. OBJECTIVE Vitals: 12/10/23 1407 BP: 134/76 BP Location: Left arm Patient Position: Sitting Cuff Size: Regular Pulse: 74 There is no height or weight on file to calculate BMI. PHYSICAL EXAMINATION General: No acute distress, very pleasant. Eyes: Pupils equal, round, and reactive. Extraocular movements intact. CV: Regular rate and rhythm. No murmurs, rubs, or gallops. +2 pulses bilaterally. Resp: Clear to auscultation bilaterally. No wheezes, stridor, or crackles. Extremities: No clubbing, cyanosis, or edema. Neuro: CNII-XII grossly intact. Psych: Alert and oriented, responds appropriately. DIAGNOSTICS TTE 10/24/23: 1. Echocardiogram performed in the setting of atrial fibrillation with rapid ventricular rate; hemodynamics may be inaccurate. 2. Normal left ventricular chamber size, calculated 2-D linear ejection fraction 56% with ytcg-ju-evxz variability. 3. Moderately enlarged left atrial size. 4. Mildly enlarged right ventricular chamber size, mildly reduced systolic function, estimated right ventricular systolic pressure 28 mmHg (right atrial pressure of 5 mmHg). 5. No significant valvular heart disease. 6. Normal inferior vena cava size with normal inspiratory collapse (>50%). 7. Left pleural effusion. 8. No pericardial effusion. Holter monitor 12/08/23: 1. The basic rhythm was sinus. The [...] 1%. 4. No symptomatic events were noted. ASSESSMENT / PLAN #1 Fibrillation Atrial (AF) NOS Ilan Alaniz is a 83 y.o. male returning for management of atrial fibrillation. He has done remarkably well on amiodarone and appears to have chemically converted back to NSR. He has been tolerating his other medications without issues. He completed a home sleep study but has not reviewed these results yet with a provider; these are not available to our system. We clarified the frequency of monitoring labs required while on amiodarone and provided these recommendations to the patient and his PCP. We will repeat these labs including BMP, LFTs, and TSH today.If his kidney function has returned to baseline, it would be reasonable to pursue a CT coronary angiogram to assess extent of calcification. Plan will be to continue amiodarone at its current dosing. He can request for his labs and sleep study results be forwarded to [place]. It will be important to treat any sleep-disordered breathing to reduce risk of AF recurrence. The patient is understanding and agreeable to this plan. All questions and concerns at the visit were answered. We will not plan to schedule routine follow-up, but welcomed the patient to return if there are any new concerns that arise. Case was seen and staffed with Dr. Kimball. Oscar Guillaume MD Department of Internal Medicine [place], [place] * Jean Claude Kimball M.D. - 12/10/2023 2:00 PM CDT Supervisory note with . I have interviewed the patient and reviewed the data. He is in sinusrhythm with a conversion on amiodarone and will maintain 200 mg a day and monitor carefully outlined. Continued anticoagulation is essential documented in this encounter Plan of Treatment Upcoming Encounters Date Type Department Care Team (Latest Contact Info) Description 01/29/2024 10:45 AM CDT Clinical Communication Virtual Review in [place], [place] [address] [place] [phone] 02/05/2024 1:00 PM CDT Comprehensive Visit Department of Neurology in [address] [phone] Arturo Barfield M.D. [address] [place] [phone] documented as of this encounter Results * Thyroid Function [place] (12/10/2023 3:41 PM CDT) TSH, Sensitive 1.6 0.3 - 4.2 mIU/L 12/10/2023 7:29 PM CDT DTL Blood (Blood, Venous) 12/10/2023 3:41 PM CDT 12/10/2023 4:09 PM CDT Jean Claude Kimball M.D. LAB BLOOD ADD-ON Performing Organization Address City/[facility]/ZIP Co de Phone Number [facility] [address] [place] [address], [facility] [place] [address] [place] [address] * Hepatic Function Panel (12/10/2023 3:41 PM [...] Jean Claude Kimball M.D. LAB BLOOD ADD-ON [facility] [address] [place] [address], [facility] DTL [facility] [address] [place] [address] * (ABNORMAL) Basic Metabolic Panel (12/10/2023 3:41 [...] Jean Claude Kimball M.D. LAB BLOOD ADD-ON [facility] [address] [place] [address], [facility] DTL [facility] [address] [place] [address] documented in this encounter Visit Diagnoses Diagnosis Fibrillation Atrial (AF) NOS- Primary documented in this encounter Additional Health Concerns Assessment Noted Time PHQ-9 Depression Total Score: 1 07/16/ 13 2:30 PM [employer] documented as of this encounter Care Teams Shove Up Relationship Specialty Start Date End Date Elsewhere, Pcp PCP - General Internal Medicine 10/07/23 documented as of this encounter
--- OUTSIDE RECORDS SUMMARY | 2024-01-08 07:18 | XMS_ITS | Encounter Summary ---
Author Name Unknown Organization [facility] Address [address] [place] [address] Care Team Providers Care Cigar Inspector Name Role Phone Elsewhere, Pcp Primary Care Provider Unavailabl e Reason for Referral * Outpatient (Routine) - Closed Specialty Diagnoses / Procedures Referred By Contac t Referred To Contact Diagnoses Atrial Fibrillation Other Persistent (HCC) Procedures DX Chest AP or PA and Lateral 2 Views Jean Claude Kimball M.D. [address] [place] [address] [facility] Referral ID Status Reason Start Date Expiration Date Visits Re quested Visits Authorized [id number] Closed 10/23/2023 10/22/2024 1 1 FARM GAUGER * Outpatient (Routine) - Closed Specialty Diagnoses / Procedures Referred By Contac t Referred To Contact Diagnoses Atrial Fibrillation Other Persistent (HCC) Procedures Echo Transthoracic (TTE) Jean Claude Kimball M.D. [address] [place] [address] [facility] Referral ID Status Reason Start Date Expiration Date Visits Re quested Visits Authorized [id number] Closed 10/23/2023 10/22/2024 1 1 FARM GAUGER Reason for Visit * Appointment Request (Routine) - Closed Specialty Diagnoses / Procedures Referred By Contac t Referred To Contact Cardiovascular Disease Diagnoses Pain Chest Shortness Of Breath Fatigue Flutter Atrial (HCC) Referral ID Status Reason Start Date Expiration Date Visits Re quested Visits Authorized [id number] Closed 10/07/2023 10/06/2024 1 1 Encounter Details Date Type Department Care Team (Latest Contact Info) Description 10/23/2023 9:00 AM TANK FARM GAUGER Comprehensive Visit Department of Cardiovascular Medicine in [place], [place] [address] [place] [address] Jean Claude Kimball M.D. [address] [place] [phone] Atrial Fibrillation Other Persistent (HCC) (Primary Dx); Fatty Liver Social History Tobacco Use Types Packs/Day Years [...] often do you attend chur ch or baptism services? More than 4 times per year 01/11/2020 Do you belong to any clubs o r organizations such as baptism groups, unions, fraternal or athletic groups, or [...] and heating? Not hard at all 01/11/2020 [facility] Occupat ional Health - Occupational Stress [...] Sign Reading Time Taken Comments Blood Pressure 102/68 10/23/2023 8:50 AM TANK FARM GAUGER Pulse 71 10/23/2023 8:50 AM TANK FARM GAUGER Temperature - - Respiratory Rate - - Oxygen Saturation - - Inhaled Oxygen Concentration - - Weight 97.8 kg (215 lb 9.8 oz) 10/23/2023 8:50 A M TANK FARM GAUGER Height 180 cm (5' 10.87) 10/23/2023 8:50 AM TANK FARM GAUGER Body Mass Index 30.19 10/23/2023 8:50 AM TANK FARM GAUGER documented in this encounter Consult Notes * Jean Claude Kimball M.D. - 10/23/2023 9:00 AM CST Supervisory note with . I have interviewed and examined the patient and agree with the findings and recommendations. This is a complicated patient with atrial fibrillation and failed cardioversion who also has a left pleural effusion and may have had an episode of pneumonia. We have discussed the multiple options to consider and at this point I think it would still be appropriate to pursue a rhythm control strategy for his quality of life while we deal with the other issues as well. We note his fatty liver but I think we should try to use amiodarone prior to another attempted cardioversion and then a decision as to whether we continue with a rhythm control strategy. FARM GAUGER * Brandon Brothers M.B.B.S. - 10/23/2023 9:00 AM CST SUBJECTIVE Referring Provider: No ref. provider found Reason for Consultation: 1. Newly discovered atrial fibrillation (August 2023) status post cardioversion X 1 with reversion to AFib CHIEF COMPLAINT/REASON FOR CONSULT Fatigue HISTORY OF PRESENT ILLNESS Mr. Ilan Alaniz is a very pleasant 83 y.o. male who presents to [facility] for recently discovered atrial fibrillation with rapid ventricular rate. Of note, the patientwas in his usual state of health until to - 3 weeks prior to August 16, 2023 when he started noticing racing sensation of his heart ultimately prompting him to call 911 due to concerns of possible heart attack. Twelve lead ECG showed atrial fibrillation with rapid ventricular rate without any ST or T changes suggestive of ischemia. An outpatient stress test was recommended which was negative for any inducible ischemia. Subsequently, the patient started to notice to have overwhelming fatigue. He was suspected to have a viral infection at that point or a rheumatologic conditions just polymyalgia rheumatica in view of which the patient was prescribed a short course of prednisone. His hemoglobin was loaded to be low between 12-13 at that point and white counts were noted to be elevated at 14.3 during that episode. The patient ultimately stopped steroids on the as he did not experience any benefit with regards to his symptoms. Moreover, he was noted to be in atrial fibrillation withrapid ventricular rate on an ECG on 09/12/2023. He also got a CT PE at that point which was negative for a PE. In reviewing the images, there was coronary artery calcification of the distal LAD and left circumflex as well as proximal RCA. CT abdomen was unremarkable at that point. He was recommended to start Xarelto based on CHADS- VASc score of 4. The patient underwent a DC cardioversion on 10/16/2023 but unfortunately went back into atrial fibrillation based on repeat ECG on 10/18/2023. He wasnot prescribed antiarrhythmic medication at that point. Transthoracic echocardiogram performed on 10/01/2023 did not show any evidence of systolic dysfunction. There was evidence of mild left atrial enlargement with an LA volume index in the 20s. Mild concentric LV hypertrophy was noted. Per the patient, he did not notice any significant change after his DC cardioversion in terms of his symptoms. He consumes approximately a glass of wine/2 - 3 weeks. He denies a history of snoring or known diagnosis of obstructive sleep apnea. Although, occasionally he does not feel well rested after waking up in the morning. With respect to chest discomfort, the patient mentions the he occasionally feels racing heart sensation for the most part, he denies any overt chest discomfort. His predominant symptom is fatigue. Ofnote, hemoglobin was noted to be low at 13.1 on 10/18 (previous baseline was 14-15 approximately 2 years ago). Additionally, the patient has a history of nonalcoholic liver steatosis. Most recent LFTs from today were notable for elevated ALT at 104 (ALT and AST were elevated at 240 and 193 last week). Serum creatinine was elevated at 1.79 on 10/07/2023 but was downtrending as of 10/18 to 1.56 (prior baselinefrom 2 years ago 1.2) Cardiac History No personal history of CT. Cardiovascular Risk Factors: 1. Smoking status: has never smoked 2. Type II Diabetes Mellitus: yes EXT Hemoglobin A1c, Point of Care, B Date Value Ref Range Status 10/14/2023 8.4 (H) <5.7 % Final Comment: Normal <5.7% Prediabetes 5.7-6.4% Diabetes 6.5% or higher Note: Adopted from ADA consensus guidelines. 3. Hypertension: yes 4. Dyslipidemia: yes most recent lipid panel (external) on 10/15/2023 remarkable for total cholesterol of 66, HDL 26, triglycerides 65 5. Family history of early Coronary Artery Disease in a first degree relative (Male less than 55 years of age; Female less than 65 years of age): no 6. Obesity and/or Metabolic Syndrome: yes ) 7. Sedentary lifestyle: yes REVIEW OF SYSTEMS Pertinent items are noted in HPI; all other review of systems was negative. OBJECTIVE Vitals: 10/23/23 0850 BP: 102/68 BP Location: Left arm Patient Position: Sitting Cuff Size: Large Pulse: 71 Weight: 97.8 kg Height: 180 cm BP Readings from Last 3 Encounters: 10/23/23 102/68 10/18/23 (!) 149/94 10/07/23 119/78 PHYSICAL EXAMINATION Gen: Well appearing, well-nourished male resting comfortably in bed Skin: Sun exposure of related skin changes on the scalp and left side of the face. HEENT: Eyes have no icterus or injection; mucous membranes moist. Lungs: Clear to auscultation bilaterally; I could not appreciate any wheezing or crackles CV: Regular rate and rhythm. I could not appreciate any murmurs. No pedal edema appreciated. Abd: Soft, non tender, non-distended; normoactive bowel sounds PSYCH: Mood and affect congruent. Well-dressed and well-groomed. Thought content and processes within normal limits NEURO: Alert and oriented. CN II-XII grossly intact. Muscle strength equal bilaterally. DIAGNOSTICS I have reviewed the patient's current laboratory, imaging, and other diagnostic studies. Pertinent laboratory studies have been reviewed and are notable for: Pertinent imaging studies have been reviewed and are notable for: Twelve lead ECG (10/18/2023), 2 days after cardioversion: Atrial fibrillation with rapid ventricular response with PVCs. Biphasic T-waves leads V2 and V3. Chest x-ray (10/18/2023): Left-sided pleural effusion Transthoracic echocardiogram (10/01/2023): Normal LV size with mild concentric LV hypertrophy. EF 60 65%. Normal left atrial size. Trace mitral regurgitation normal LV diameters. LA volume index 28. Nuclear medicine perfusion (08/2023): No evidence of inducible myocardial ischemia. EF 64% CABG: No CT chest (09/12/2023): Not gated for the coronary arteries. Coronary artery calcifications in the RCA and left coronary artery (lad and circumflex) ASSESSMENT / PLAN #1 Atrial Fibrillation Other Persistent (HCC) Mr. Alaniz is an 83-year-old male with newly discovered atrial fibrillation with rapid ventricular rate, without significant structural heart disease but with symptoms which could potentially be related to AFib (fatigue), status post unsuccessful cardioversion. The patient will likely require anti arrhythmics to maintain a normal sinus rhythm in addition to retrialing cardioversion in an attempt to maintain establish a normal sinus rhythm. We briefly discussed about the possibility of coexisting coronary artery disease considering that the patient does endorse some symptoms of feeling winded or short of breath. Lastly, considering that the patient had left-sided pleural effusion, this could also be contributing to dyspnea. Additionally, we have counseled the patient about alcohol intake and worsening of atrial fibrillation. He has not been evaluated for sleep apnea so far, therefore we will pursue an overnight oximetryas untreated sleep apnea can potentially worsen control of atrial fibrillation. We will recheck LFTs today considering that the patient had elevated AST and ALT last week prior toinitiation of amiodarone. Recommendations: We would recommend updating a transthoracic echocardiogram at [facility] to assess for structural heart disease. We will get an internal interpretation of the outside CT PE. We would recommend further investigation of anemia with the primary care provider. Plan to repeat chest x-ray to assess for resolution/persistence of pleural effusion. Plan to start amiodarone 200 mg b.i.d. X 7 days followed by 200 mg once daily. Recommend repeating 12 lead ECG in 2 weeks. If the patient restores a normal sinus rhythm with amiodarone, we will hold off on cardioversion. Recommend checking TSH, LFTs and chest x-ray every 3 months for the 1st your followed by every 6 months subsequently while on amiodarone. If kidney function stabilizes, CT coronary angiogram would be recommended to assess for underlying coronary artery disease as that might also be contributing to exertional shortness of breath. Electronically signed by: Eva Alejandro. 10/23/23 5:35 PM TANK FARM GAUGER FARM GAUGER documented in this encounter Plan of Treatment Upcoming Encounters Date Type Department Care Team (Latest Contact Info) Description 01/29/2024 10:45 AM CDT Clinical Communication Virtual Review in [place], [place] [address] [place] [address] 02/05/2024 1:00 PM CDT Comprehensive Visit Department of Neurology in [place], [place] [address] [place] [phone] Arturo Barfield M.D. [address] [place] [phone] documented as of this encounter Procedures Procedure Name Priority Date/Time Associated Diagnosis Comments FERRITIN, S Routine 10/18/2023 3:21 PM TANK FARM GAUGER Atrial Fibrillation Other Persistent (HCC) Fatty Liver documented in this encounter Results * (TTE) 2D ECHO DOPPLER COLOR (10/24/2023 1:24 PM TANK FARM GAUGER) Ejection Fraction 56 MC CV EIMS Mid-Ascending [...] Laterality Modality Echocardiography 10/24/2023 12:1 8 PM TANK FARM GAUGER Impressions 10/24/2023 1:36 PM TANK FARM GAUGER LEFT VENTRICLE:Normal left ventricular chamber size. Normal left ventricular wall thickness. Calculated 2-D linear left ventricular ejection fraction 56% with jyvl-br-hobi variability. No regional wall motion abnormalities. Indeterminate [...] the Order-Level Documents. Narrative 10/24/2023 1:36 PM TANK FARM GAUGER For the complete report, see the Order-Level Documents. Hemodynamics Heart Rate: 127 BPM Blood Pressure: 136 / 72 mmHg ECG: Atrial fibrillation, BPM 100-140 Final Impressions 1. Echocardiogram performed in the setting of atrial fibrillation with rapid ventricular rate; ??hemodynamics may be inaccurate. 2. Normal left ventricular chamber size, calculated 2-D linear ejection fraction 56% with idio-oi-xuju variability. 3. Moderately enlarged left atrial size. [...] size, calculated 2-D linear ejectionfraction 56% with mkkd-ih-tspk variability. 3. Moderately enlarged left atrial size. [...] 2-D linear left ventricularejection fraction 56% with ybjs-ce-aofy variability. No regional wallmotion abnormalities. Indeterminate left [...] Kimball M.D. CV ECHO PROCEDURES * (ABNORMAL) Hepatic Function Panel (10/23/2023 11:54 AM TANK FARM GAUGER) Bilirubin, Total, S 0.5 0.0 - 1.2 mg/dL 10/23/2023 1:36 PM TANK FARM GAUGER DTL Bilirubin, Direct, S <0.2 0.0 - 0.3 mg/dL 10/23/2023 1:36 PM TANK FARM GAUGER DTL Aspartate Aminotransferase (AST), S 32 8 - 48 U/L 10/23/2023 1:36 PM TANK FARM GAUGER DTL Alanine Aminotransferase (ALT), S 104(H) 7 - 55 U/L 10/23/2023 1:36 PM TANK FARM GAUGER DTL Alkaline Phosphatase, S 77 40 - 129 U/L 10/23/2023 1:36 PM TANK FARM GAUGER DTL Albumin, S 3.7 3.5 - 5.0 g/dL 10/23/2023 1:36 PM TANK FARM GAUGER DTL Protein, Total, S 6.3 6.3 - 7.9 g/dL 10/23/2023 1:36 PM TANK FARM GAUGER DTL Blood (Blood, Venous) 10/23/2023 11:54 AM TANK FARM GAUGER 10/23/2023 12:31 PM TANK FARM GAUGER Jean Claude Kimball M.D. LAB BLOOD ADD-ON [address] [address], [facility] [place] [address] * DX Chest AP or PA and Lateral 2 Views (10/23/2023 11:30 AM TANK FARM GAUGER) Anatomical Region Laterality Modality Chest, Thoracic RST LOS, Tho racic ARZ LOS, Thoracic FLA LOS N/A Digital Radiography Impressions 10/23/2023 11:35 AM TANK FARM GAUGER Moderate left pleural effusion has decreased minimally in size since 10/18/2023. Very tiny right pleural effusion has also improved. Subsegmental atelectasis left base. Aortic calcification. Calcified granulomas in both lungs. Calcified right hilar node. Slight cardiac enlargement. Narrative 10/23/2023 11:35 AM TANK FARM GAUGER EXAM: ??DX CHEST AP OR PA AND LATERAL 2 VIEWS Procedure Note Harms, Jose F, M.D. - 10/23/2023 EXAM: DX CHEST AP [...] Abdomen and or Pelvis (10/23/2023 10:53 AM TANK FARM GAUGER) Anatomical Region Laterality Modality Abdomen, Pelvis, Abdominal R ST LOS, Abdominal ARZ LOS, Abdominal FLA LOS, Other N/A Computed Tomography Impressions 10/25/2023 8:06 AM TANK FARM GAUGER 1. Negative. No acute or suspicious findings. No significant change since 09/30/2013. 2. This OS examination was performed in conjunction with a CT of the chest, which will be re-reported separately if requested. Narrative 10/25/2023 8:06 AM TANK FARM GAUGER EXAM: ??INTERPRETATION OF OUTSIDE CT ABDOMEN AND OR PELVIS . Outside CT of the abdomen and pelvis with IV contrast dated 09/12/2023. COMPARISON: ??Outside CT 06/16/2023 and [facility] CT 09/30/2013. FINDINGS: ??Liver, pancreas, and adrenals [...] dated 09/12/2023. COMPARISON: Outside CT 06/16/2023 [address] [facility] CT 09/30/2013. FINDINGS: Liver, pancreas, and adrenals [...] separately if requested. Jean Claude Kimball M.D. IMAline CT PROCEDURES * PUL Home Overnight Oximetry (10/23/2023) 10/23/2023 Impressions [facility] 10/24/2023 1:58 PM TANK FARM GAUGER This is an overnight oximetry assumed to have been performed on room air as a completed questionnaire was not returned. ??Mean saturation of 94% with periods of oscillatory desaturation to as low as 82% noted during the study. ??Heart rate tracing suggests an arrhythmia. Impression: ??Abnormal. ??Desaturations concerning for a positional or sleep- related breathing disorder. ??Possible arrhythmia. Physician: Martin Humphries M.D. [id number] Narrative Procedure Note Martin Humphries M.D., Ph.D. [...] disorder. Possible arrhythmia. Physician: Martin Humphries M.D. [id number] Jean Claude Kimball M.D. PFT ORDERABLES [facility] * (ABNORMAL) Ferritin (10/18/2023 3:21 PM TANK FARM GAUGER) Ferritin, S 843(H) 31 - 409 mcg/L 10/23/2023 12:00 PM TANK FARM GAUGER DTL Blood (Blood, Venous) 10/18/2023 3:21 PM TANK FARM GAUGER 10/23/2023 11:22 AM TANK FARM GAUGER Jean Claude Kimball M.D. LAB BLOOD ADD-ON Performing Organization Address City/[facility]/ZIP Co de Phone Number [facility] [address] [place] [address], [facility] [address] [address] documented in this encounter Visit Diagnoses Diagnosis Atrial Fibrillation Other Persistent (HCC)- Primary Fatty Liver Atrial Fibrillation Other Persistent (HCC) Atrial Fibrillation Other Persistent (HCC) Atrial Fibrillation Other Persistent (HCC) Atrial Fibrillation Other Persistent (HCC) documented in this encounter Additional Health Concerns Assessment Noted Time PHQ-9 Depression Total Score: 1 07/16/20 13 2:30 PM TANK FARM GAUGER documented as of this encounter Care Teams Cigar Inspector Relationship Specialty Start Date End Date Elsewhere, Pcp PCP - General Internal Medicine 10/07/23 documented as of this encounter
--- OUTSIDE RECORDS SUMMARY | 2024-01-08 07:18 | XMS_ITS | Encounter Summary ---
Author Name Unknown Organization [facility] Address [address] [place] [id number] Care Team Providers Care Site Physician Name Role Phone Elsewhere, Pcp Primary Care Provider Unavailabl e Encounter Details Date Type Department Care Team (Latest Contact Info) Description 10/23/2023 11:38 AM CLASSICS PROFESSOR - 10/23/2023 11:59 PM [facility] Encounter Department of Laboratory Medicine and Pathology, [facility] in [place], [place] [address] [place] [address] Jean Claude Kimball M.D. [address] [place] [address] Atrial Fibrillation Other Persistent (HCC); Fatty Liver Discharge Disposition: Home or Self Care Social [...] often do you attend chur ch or restoration services? More than 4 times per year 01/11/2020 Do you belong to any clubs o r organizations such as latter-day groups, unions, fraternal or athletic groups, or [...] and heating? Not hard at all 01/11/2020 [facility] of Occupat ional Health - Occupational [...] by mouth daily. 90 tablet 3 05/07/2023 fjphxolz-jrr-njmq-FA- vit K-lut 8 mg iron-400 mcg-50 mcg [...] AM CDT Clinical Communication Virtual Review in [place], [place] [address] [place] [address] 02/05/2024 1:00 PM CDT Comprehensive Visit Department of Neurology in [place], [place] [address] [place] [phone] Arturo Barfield M.D. [address] [place] [phone] documented as of this encounter Procedures Procedure Name Priority Date/Time Associated Diagnosis Comments HEPATIC FUNCTION PANEL, S Routine 10/23/2023 11:54 AM CLASSICS PROFESSOR Atrial Fibrillation Other Persistent (HCC) D-DIMER, P Routine 10/23/2023 11:54 AM CLASSICS PROFESSOR Fatty Liver documented in this encounter Results * (ABNORMAL) D-Dimer (10/23/2023 11:54 AM CLASSICS PROFESSOR) D-Dimer, P 853(H) <=500 ng/mL FEU 10/23/2023 12:33 PM CLASSICS PROFESSOR DTL Comment: D-dimer concentrations increase with age. [...] (PE). Blood (Blood, Venous) 10/23/2023 11:54 AM CLASSICS PROFESSOR 10/23/2023 12:18 PM CLASSICS PROFESSOR Jean Claude Kimball M.D. LAB BLOOD ADD-ON [facility] [address] [place] [address], [facility] [address] [place] [address] * (ABNORMAL) Hepatic Function Panel (10/23/2023 11:54 AM CLASSICS PROFESSOR) Bilirubin, Total, S 0.5 0.0 - 1.2 mg/dL 10/23/2023 1:36 PM CLASSICS PROFESSOR DTL Bilirubin, Direct, S <0.2 0.0 - 0.3 mg/dL 10/23/2023 1:36 PM CLASSICS PROFESSOR DTL Aspartate Aminotransferase (AST), S 32 8 - 48 U/L 10/23/2023 1:36 PM CLASSICS PROFESSOR DTL Alanine Aminotransferase (ALT), S 104(H) 7 - 55 U/L 10/23/2023 1:36 PM CLASSICS PROFESSOR DTL Alkaline Phosphatase, S 77 40 - 129 U/L 10/23/2023 1:36 PM CLASSICS PROFESSOR DTL Albumin, S 3.7 3.5 - 5.0 g/dL 10/23/2023 1:36 PM CLASSICS PROFESSOR DTL Protein, Total, S 6.3 6.3 - 7.9 g/dL 10/23/2023 1:36 PM CLASSICS PROFESSOR DTL Blood (Blood, Venous) 10/23/2023 11:54 AM CLASSICS PROFESSOR 10/23/2023 12:31 PM CLASSICS PROFESSOR Jean Claude Kimball M.D. LAB BLOOD ADD-ON [facility] [address] [place] [address], [facility]] [address] [place] [address] documented in this encounter Visit Diagnoses Diagnosis Atrial Fibrillation Other Persistent (HCC) Fatty Liver documented in this encounter Additional Health Concerns Assessment Noted Time PHQ-9 Depression Total Score: 1 07/16/20 13 2:30 PM CLASSICS PROFESSOR documented as of this encounter Care Teams Site Physician Relationship Specialty Start Date End Date Elsewhere, Pcp PCP - General Internal Medicine 10/07/23 documented as of this encounter
--- OUTSIDE RECORDS SUMMARY | 2024-01-08 07:18 | XMS_ITS | Encounter Summary ---
Author Name Unknown Organization [facility] Address [address] [place] [address] Care Team Providers Care Rn Care Transition Name Role Phone Elsewhere, Pcp Primary Care Provider Unavailabl e Reason for Referral * Outpatient (Routine) - Authorized Specialty Diagnoses / Procedures Referred By Contac t Referred To Contact Diagnoses Atrial Fibrillation Other Persistent (HCC) Procedures ECG Heart Rhythm Monitor (Holter) Jean Claude Kimball M.D. [address] [place] [address] [facility] Referral ID Status Reason Start Date Expiration Date V isits Requested Visits Authorized [id number] Authorized 11/28/2023 11/27/2024 1 1 Reason for Visit * Outpatient (Routine) - Authorized Specialty Diagnoses / Procedures Referred By Contac t Referred To Contact Diagnoses Atrial Fibrillation Other Persistent (HCC) Procedures ECG Heart Rhythm Monitor (Holter) Jean Claude Kimball M.D. [address] [place] [address] [facility] Referral ID Status Reason Start Date Expiration Date V isits Requested Visits Authorized [id number] Authorized 11/28/2023 11/27/2024 1 1 Encounter Details Date Type Department Care Team (Latest Contact Info) Description 12/06/2023 10:37 AM CDT - 12/06/2023 11:59 PM CDT Hospital Encounter Department of Cardiovascular Diseases in [place], [place] [address] [place] [address] Jean Claude Kimball M.D. [address] [place] [address] Atrial Fibrillation Other Persistent (HCC) Discharge Disposition: [...] any clubs o r organizations such as buddhism groups, unions, fraternal or athletic groups, or [...] and heating? Not hard at all 01/11/2020 [facility] [place] of Occupat ional Health - Occupational Stress [...] by mouth daily. 90 tablet 3 05/07/2023 wjvihgsh-qyw-bwyx-FA- vit K-lut 8 mg iron-400 mcg-50 mcg [...] AM CDT Clinical Communication Virtual Review in [address] [phone] 02/05/2024 1:00 PM CDT Comprehensive Visit Department of Neurology in [address] [phone] Arturo Barfield M.D. [address] [place] [phone] documented as of this encounter Procedures Procedure Name Priority Date/Time Associated Diagnosis Comments HOLTER MONITOR - IN CLINIC RESEARCHER Routine 12/08/2023 11:00 AM CDT Atrial Fibrillation Other Persistent (HCC) documented in this encounter Results * HOLTER MONITOR - IN CLINIC RESEARCHER (12/08/2023 11:00 AM CDT) Min Heart Rate [...] Duration 0 duration INFOBION IC MOME AF [place] 0 percent INFOBIONIC MOME Symptom Count 0 [...] 1%. 4. No symptomatic events were noted. Biometrician: DAYANA Rogers /DAYANA Cruz Procedure Note Josias [...] than1%. 4. No symptomatic events were noted. Biometrician: DAYANA Rogers /DAYANA Cruz Jean Claude Kimball M.D. [facility] SERVICES PROCEDURES INFOBIONIC ERLIN NA documented in this encounter Visit Diagnoses Diagnosis Atrial Fibrillation Other Persistent (HCC) documented in this encounter Additional Health Concerns Assessment Noted Time PHQ-9 Depression Total Score: 1 07/16/20 13 2:30 PM METER INSTALLER AND REMOVER documented as of this encounter Care Teams Rn Care Transition Relationship Specialty Start Date End Date Elsewhere, Pcp PCP - General Internal Medicine 10/07/23 documented as of this encounter
--- OUTSIDE RECORDS SUMMARY | 2024-01-08 07:18 | XMS_ITS | Encounter Summary ---
Author Name Unknown Organization [facility] Address [address] [place] [address] Care Team Providers Care Air Sampling And Monitoring Name Role Phone Elsewhere, Pcp Primary Care Provider Unavailabl e Reason for Visit * Reason Comments Nocturia Uroflow * Outpatient (Routine) - Closed Specialty Diagnoses / Procedures Referred By Contac t Referred To Contact Diagnoses Symptom Urinary Nocturia Procedures URO Uroflow Chanel Concepcion M.D., M.B.A. [address] [place] [phone] [facility] Referral ID Status Reason Start Date Expiration Date Visits Re quested Visits Authorized [id number] Closed 06/10/2023 06/09/2024 1 1 Encounter Details Date Type Department Care Team (Late st Contact Info) Description 12/10/2023 10:45 AM CDT Procedure visit Department of Urology in [place], [place] [address] [place] [phone] Chanel Concepcion M.D., M.B.A. [address] [place] [phone] Teri Coto R.N. [address] [place] [phone] Symptom Urinary; Nocturia Social History Tobacco Use Types [...] often do you attend chur ch or voodoo services? More than 4 times per year 01/11/2020 Do you belong to any clubs o r organizations such as sabianism groups, unions, fraternal or athletic groups, or [...] at all 01/11/2020 [facility] of Occupat ional Health - Occupational [...] as of this encounter Progress Notes * Teri Coto R.N. - 12/10/2023 10:45 AM CDT CHIEF COMPLAINT Patient here for a complex uroflow via calibrated electronic equipment and a residual urine check by ultrasound. IMPRESSION/REPORT/PLAN Chanel Concepcion ordered the patient to have a complex uroflow with residual urine check via ultrasound.Patient had a severe urge to void. Uroflow was completed at this time. Patient voided 103 mL's and had a ultrasound residual of 5 mL's. Patient rates pain at 0 on the 0 to 10 pain scale post procedure. documented in this encounter Procedure Notes * Jaqueline Brady M.D. - 12/10/2023 10:45 AM CDTAssociated Order(s): URO Uroflow Pre-Procedure Diagnose(s): Symptom Urinary; Nocturia Post-Procedure Diagnose(s): Symptom Urinary; Nocturia URO Uroflow Performed by: Jaqueline Brady M.D. Authorized by: Chanel Concepcion M.D., M.B.A. PROCEDURE DETAILS Calibrated electronic equipment used. Total voided volume (mL): 103 Peak flow (mL/seconds): 13 Average flow (mL/seconds): 6 Voiding time (seconds): 16 Flow pattern: continuous smooth Residual urine (mL): 5 Measured by: ultrasound PRE-PROCEDURE DETAILS Procedure purpose: diagnostic Indications: nocturia COMMENTS Low voided volume limits the diagnostic capabilities of this test. Low peak flow, low PVR documented in this encounter Plan of Treatment Upcoming Encounters Date Type Department Care Team (Latest Contact Info) Description 01/29/2024 10:45 AM CDT Clinical Communication Virtual Review in [place], [place] 200 [place] [address] 02/05/2024 1:00 PM CDT Comprehensive Visit Department of Neurology in [address] [phone] Arturo Barfield M.D. [address] [place] [phone] documented as of this encounter Procedures Procedure Name Priority Date/Time Associated Diagnosis Comments MT MARY PST VOID RESID US NON IMG Routine 12/10/2023 10:45 AM CDT Symptom Urinary Nocturia MT UROFLOWMETRY CMPLX Routine 12/10/2023 10:45 AM CDT Symptom Urinary Nocturia documented in this encounter Results * MT UROFLOWMETRY CMPLX, MT MARY PST VOID RESID US NON IMG [...] Chanel Concepcion M.D., M.B.A. 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
--- OUTSIDE RECORDS SUMMARY | 2024-01-08 07:18 | XMS_ITS | Encounter Summary ---
Author Name Unknown Organization [facility] Address [address] [place] [address] Care Team Providers Care Transformer Coil Winder Name Role Phone Elsewhere, Pcp Primary Care Provider Unavailabl e Reason for Referral * Outpatient (Routine) - Closed Specialty Diagnoses / Procedures Referred By Contac t Referred To Contact Diagnoses Atrial Fibrillation Other Persistent (HCC) Procedures DX Chest AP or PA and Lateral 2 Views Jean Claude Kimball M.D. [address] [place] [phone] [facility] Referral ID Status Reason Start Date Expiration Date Visits Re quested Visits Authorized [id number] Closed 10/23/2023 10/22/2024 1 1 HER STRIPPING MACHINE OPERATOR Reason for Visit * Outpatient (Routine) - Closed Specialty Diagnoses / Procedures Referred By Contac t Referred To Contact Diagnoses Atrial Fibrillation Other Persistent (HCC) Procedures DX Chest AP or PA and Lateral 2 Views Jean Claude Kimball M.D. [address] [place] [address] [facility] Referral ID Status Reason Start Date Expiration Date Visits Re quested Visits Authorized [id number] Closed 10/23/2023 10/22/2024 1 1 Encounter Details Date Type Department Care Team (Latest Contact Info) Description 10/23/2023 11:20 AM LEATHER STRIPPING MACHINE OPERATOR - 10/23/2023 11:37 AM LEATHER STRIPPING MACHINE OPERATOR Hospital Encounter Department of Radiology, [facility], in [place], [place] [address] [place] [address] Jean Claude Kimball M.D. [address] [place] [address] Atrial Fibrillation Other Persistent (HCC) Discharge Disposition: [...] often do you attend chur ch or jewish services? More than 4 times per year 01/11/2020 Do you belong to any clubs o r organizations such as yazidi groups, unions, fraternal or athletic groups, or [...] and heating? Not hard at all 01/11/2020 [facility] [place] of Occupat ional Health - Occupational Stress [...] by mouth daily. 90 tablet 3 05/07/2023 bldppxwi-ire-phwl-FA- vit K-lut 8 mg iron-400 mcg-50 mcg [...] mouth 2 (two) times a day. 06/15/2013 cefpodoxime (VANTIN) 200 mg tablet Take 200 mg by mouth 2 (two) times a day before breakfast and dinner. 10/16/2023 10/23/2023 documented as of this encounter Plan of Treatment Upcoming Encounters Date Type Department Care Team (Latest Contact Info) Description 01/29/2024 10:45 AM CDT Clinical Communication Virtual Review in [place], [place] 200 [place] [address] 02/05/2024 1:00 PM CDT Comprehensive Visit Department of Neurology in [address] [phone] Arturo Barfield M.D. [address] [place] [phone] documented as of this encounter Procedures Procedure Name Priority Date/Time Associated Diagnosis Comments DX CHEST AP OR PA AND LATERAL 2 VIEWS RAD - Routine (most inpatients and all outpatients) 10/23/2023 11:30 AM LEATHER STRIPPING MACHINE OPERATOR Atrial Fibrillation Other Persistent (HCC) documented in this encounter Results * DX Chest AP or PA and Lateral 2 Views (10/23/2023 11:30 AM LEATHER STRIPPING MACHINE OPERATOR) Anatomical Region Laterality Modality Chest, Thoracic RST LOS, Tho racic ARZ LOS, Thoracic FLA LOS N/A Digital Radiography Impressions 10/23/2023 11:35 AM LEATHER STRIPPING MACHINE OPERATOR Moderate left pleural effusion has decreased minimally in size since 10/18/2023. Very tiny right pleural effusion has also improved. Subsegmental atelectasis left base. Aortic calcification. Calcified granulomas in both lungs. Calcified right hilar node. Slight cardiac enlargement. Narrative 10/23/2023 11:35 AM LEATHER STRIPPING MACHINE OPERATOR EXAM: ??DX CHEST AP OR PA AND [...] Jean Claude [facility] NG PROCEDURES documented in this encounter Visit Diagnoses Diagnosis Atrial Fibrillation Other Persistent (HCC) documented in this encounter Additional Health Concerns Assessment Noted Time PHQ-9 Depression Total Score: 1 07/16/20 13 2:30 PM LEATHER STRIPPING MACHINE OPERATOR documented as of this encounter Care Teams Transformer Coil Winder Relationship Specialty Start Date End Date Elsewhere, Pcp PCP - General Internal Medicine 10/07/23 documented as of this encounter
--- OUTSIDE RECORDS SUMMARY | 2024-01-08 07:19 | XMS_ITS | Clinical Summary ---
Author Name Unknown Organization [facility] Address [place], [place] [address] Care Team Providers Care Waterproofing Machine Operator Name Role Phone Edwige Negrete MD Primary Care Provider [phone] Allergies Active Allergy Reactions Criticality Noted Date Comments Cat Dander *Unknown 02/11/2014 sneezing Medications Medication Sig Dispensed Refills Start Date End Date Status cholecalciferol, Vitamin D3, 2,000 unit tablet Take 1 tablet by mouth. 02/11/2014 Active BASAGLAR KWIKPEN U-100 INSULIN 100 unit/mL (3 mL) pen INJECT 55 UNITS UNDER THE SKIN ONCE DAILY 08/18/2020 Active oxymetazoline (AFRIN) 0.05 % nasal spray Inhale 2 Sprays in the nostril(s). Active BD INSULIN PEN NEEDLE UF 31 gauge x 5/16 USE TWICE DAILY WITH INSULIN 08/02/2020 Active Accu-Chek Negin Plus test strp stripIndications:D iabetes mellitus without complication (HC) USE TO TEST BLOOD SUGAR TWICE DAILY DX: E11.9 100 Strip 3 12/23/2020 Active Accu-Chek Softclix LancetsIndications :Diabetes mellitus without complication (HC) USE TO TEST BLOOD SUGAR TWICE DAILY. E11.40 DUE FOR LABS/APPOINTMENT 200 Each 3 12/30/2020 Active amiodarone (CORDARONE) 200 mg tablet Take 200 mg by mouth once daily. 10/31/2023 05/04/2024 Active LORazepam (ATIVAN) 1 mg tablet Take 1 mg by mouth 2 times daily if needed for Sleep. 10/31/2023 Active Xarelto 20 mg tablet Take 20 mg by mouth once daily with evening meal. Active Accu-Chek Guide Glucose Meter USE TO TEST BLOOD SUGARS TWICE DAILY 09/06/2023 Active gabapentin (NEURONTIN) 100 mg capsule Take 100 mg by mouth at bedtime. Active insulin lispro, U-100, (HUMALOG KWIKPEN; ADMELOG SOLOSTAR) 100 unit/mL inpn pen Inject 1-20 units subcutaneous one time if needed for Blood Gluc > Specify. 10/16/2023 Active losartan (COZAAR) 100 mg tablet Take 100 mg by mouth once daily. Active magnesium oxide (MAG-OX 400) 400 mg tablet Take 400 mg by mouth once daily. Active melatonin 5 mg tab tablet Take 5 mg by mouth at bedtime. Active metFORMIN (GLUCOPHAGE XR) 500 mg Extended-Release tablet Take 500 mg by mouth once daily with evening meal. 06/06/2023 Active metoprolol succinate (TOPROL XL) 25 mg Sustained-Release tablet Take 1 Tablet by mouth once daily. 10/17/2023 Active mirabegron EXTENDED-release (MYRBETRIQ) 50 mg tablet Take 50 mg by mouth once daily. 05/07/2023 Active xirzkivm-iim-abac- FA-vit K-lut 8 mg iron-400 mcg-50 mcg tab Take 1 Tablet by mouth once daily. Active nitroglycerin (NITROSTAT) 0.[address] 0.4 mg under the tongue every 5 minutes if needed. 09/23/2023 Active oxyCODONE (ROXICODONE) 5 mg immediate release tablet Take 5 mg by mouth one time if needed. 08/16/2023 Active rosuvastatin (CRESTOR) 40 mg tablet Take 1 Tablet by mouth at bedtime. 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 Apply to intact skin to cover most painful area for max 12hr per 24hr period. Active diclofenac topical (Voltaren) 1 % gel Apply topically to affected area(s) four times daily. Active Active Problems No known active problems Encounters Date Type Department Care Team Description 12/27/2023 1:05 PM CDT Ancillary Procedure [address] [phone] 12/27/2023 11:40 AM CDT Office Visit [facility] [address] [phone] Jimi Olson MD Facial Injury 12/27/2023 Travel 12/03/2023 11:30 AM CDT Office Visit [address] [phone] Alka Clinton DPM Foot Problem (Diabetic foot check) 12/03/2023 Travel 11/04/2023 10:00 AM CORRECTIONAL MEDICINE PHYSICIAN Office Visit [address] [phone] Edwige Negrete MD [facility] F/U (Has been having heart flutters for three months and hasn't been able to get answers as to what it is. Has been to [place] several times) 11/04/2023 Travel 10/23/[address] [phone] Edwige Negrete MD OTHER from Last 3 Months Immunizations Name Administration Dates Next Due COVID-19 vaccine (Vanna's Vanity 30mcg/0.3mL) MONALISA JUDGE 11/17/2020,10/27/2020 Hepatitis A (Adult) 09/03/2012 Hepatitis A (Peds),Unspecified 09/08/2014 Influenza, High-dose Inactivated 06/03/2019,05/04,05/08/2017 Influenza, High-dose Quadriv alent Inactivated 05/20/2021 Influenza, Inactivated AIIV4 (Age 65+ Years) Preserv Free 05/21/2023 Pneumococcal Poly,23-Valent (Pneumovax) 09/17/2009,07/03/2009 Pneumococcal conj 13-Valent (Prevnar 13) 05/16/2017 RSV, Recombinant ADJ Reconst ituted (Arexvy 120MCG/0.5mL) 06/12/2023 Tdap 01/02/2020,11/30/2009 Typhoid (injectable) 09/03/2012 Zoster (Shingrix-RZV, recombinant) 10/20,10/03/2018,08/18/2018,08/02 Zoster (Zostavax-ZVL, live) 09/02/2010 Social History Tobacco Use Types Packs/Day Years Used Date Smoking Tobacco: Never Smokeless Tobacco: Never Alcohol Use Standard Drinks/Week Comments Not Currently 1 (1 standard drink = 0.6 oz pur e alcohol) 2-3 glsses per of wine Social Connections Answer Date Recorded Frequency of Communication with Friends and Fami ly 0 11/04/2023 Financial Resource Strain Answer Date R ecorded Difficulty of Paying Living Expenses 3 11/04/2023 Difficulty of Paying Living Expenses Not on file 11/04/2023 Food Insecurity Answer Date Recorded Worried About Running Out of Food in the Last Ye ar 1 11/04/2023 Transportation Needs Answer Date Record ed Lack of Transportation (Medical) 1 11/04/2023 Housing Stability Answer Date Recorded Unable to Pay for Housing in the Last Year 1 11/04/2023 Sex and Gender Information Value Date Recorded Sex Assigned at Not on file Gender Identity Not on file Sexual Orientation Not on file Obstetrics History Last Filed Vital Signs Vital Sign Reading Time Taken Comments Blood Pressure 198/91 12/27/2023 11:50 AM CDT Pulse 72 12/27/2023 11:50 AM CDT Temperature 36.7 ??C (98.1 ??F) 10/18/2020 10:[address] Respiratory Rate 14 12/27/2023 11:50 AM CDT Oxygen Saturation 98% 12/27/2023 11:50 AM CDT Inhaled Oxygen Concentration - - Weight 95.3 kg (210 lb) 12/27/2023 11:50 AM CDT Height 185.4 cm (6' 1) 12/27/2023 11:50 AM CDT Body Mass Index 27.71 12/27/2023 11:50 AM CDT Plan of Treatment Health Maintenance Due Date Last Done Comments Depression screening for age 12+ 1952 Medicare Wellness for age 65+ 01/29/2005 Influenza for age 65+ 05/03/2024 05/21/2023 , 05/20/2021, 06/03/2019, Additional history exists BMI (ht and wt on same day) for age 18+ 12/26/2024 12/27/2023, 11/04/2023, 09/28/2020 Tetanus booster 01/01/2030 01/02/2020, 11/30/2009 Pneumococcal series for age 65+ Completed 05/16/2017, 09/17/2009, 07/03/2009 Zoster (shingles) series for age 50+ Completed 10/20/2018, 10/03/2018, 08/18/2018, Additional history exists Tdap Completed 01/02/2020, 11/30/2009 COVID-19 vaccine series Completed 06/12/20, 01/20/2022, 05/30/2021, Additional history exists Medical Devices Implanted Type Area Lithograph Operator Device Identifier Shelf Expiration Date Model / Serial / Lot Iol Stigma +19.5 [employer] Toric [id number] - [id number] Implanted:Qty: 1 on 10/04/2020 by Richard Simeon MD at [facility] Left: Eye [employer] 06/07/2021 [id number] / [id number] / Iol Stigma +18.5 [employer] Toric [id number] - [id number] Implanted:Qty: 1 on 10/18/2020 by Richard Simeon MD at [facility] Right: Eye [employer] 08/06/2023 [id number] / [id number] / Procedures Procedure Name Priority Date/Time Associated Diagnosis Comments CT HEAD BRAIN WO STAT 12/27/2023 1:31 PM CDT Contusion of other part of head, initial encounter from Last 3 Months Results * CT HEAD BRAIN WO (12/27/2023 1:31 PM CDT) Anatomical Region Laterality Modality HEAD, BRAIN Computed Tomogra phy 12/27/2023 1:31 PM CDT Impressions 12/27/2023 1:54 PM CDT 1. ??Frontal scalp superficial soft tissue contusion/hematoma. Underlying calvarium is intact. No radiopaque foreign body. 2. ??No finding for intracranial hemorrhage, mass, or acute infarct. 3. ??Moderate volume loss and mild presumed sequela of chronic microvascular ischemic change. Small chronic infarct left frontal lobe. Narrative 12/27/2023 1:54 PM CDT For Patients: As a result of the Cures Act, medical imaging exams and procedure reports are released immediately into your electronic medical record. You may view this report before your referring provider. If you have questions, please contact your health care provider. EXAM: CT HEAD BRAIN WO LOCATION: [facility] DATE: 12/27/2023 INDICATION: Contusion Of Other Part Of Head, Initial Encounter on blood thinners. COMPARISON: CT brain 07/21/2019. TECHNIQUE: Routine CT Head without IV contrast. Multiplanar reformats. Dose reduction techniques were used. FINDINGS: INTRACRANIAL CONTENTS: No finding for intracranial hemorrhage, mass, or acute infarct. There is moderate prominence the lateral and third ventricles and sulci, similar to the 2019 prior. Small amount of low-attenuation change is again seen within the periventricular white matter. No transcortical areas of low attenuation change. No mass effect or midline shift. Small chronic infarct left frontal lobe. Cerebellar tonsils are normally positioned. Sella is unremarkable for technique. Corpus callosum is normally formed. VISUALIZED ORBITS/SINUSES/MASTOIDS: Prior cataract surgeries. No paranasal sinus mucosal disease. No middle ear or mastoid effusion. BONES/SOFT TISSUES: Calvarium is intact without fracture or suspicious lytic or blastic foci. Moderate-sized soft tissue contusion is seen along the anterior left frontal scalp. Procedure Note Pancho Toure II, MD, PhD - 12/27/2023 For Patients: As a result of the Cures Act, medical imagingexams and procedure reports are released immediately into your electronicmedical record. You may view this report before your referring provider.If you have questions, please contact your health care provider. EXAM: CT HEAD BRAIN WO LOCATION: [facility] DATE: 12/27/2023 INDICATION: Contusion Of Other Part Of Head, Initial Encounter on blood thinners. COMPARISON: CT brain 07/21/2019. TECHNIQUE: Routine CT Head without IV contrast. Multiplanar reformats.Dose reduction techniques were used. FINDINGS: INTRACRANIAL CONTENTS: No finding for intracranial hemorrhage, mass, oracute infarct. There is moderate prominence the lateral and thirdventricles and sulci, similar to the 2019 prior. Small amount oflow-attenuation change is again seen within the periventricular whitematter. No transcortical areas of low attenuation change. No mass effector midline shift. Small chronic infarct left frontal lobe. Cerebellar tonsils are normally positioned. Sella is unremarkable fortechnique. Corpus callosum is normally formed. VISUALIZED ORBITS/SINUSES/MASTOIDS: Prior cataract surgeries. No paranasalsinus mucosal disease. No middle ear or mastoid effusion. BONES/SOFT TISSUES: Calvarium is intact without fracture or suspiciouslytic or blastic foci. Moderate-sized soft tissue contusion is seen alongthe anterior left frontal scalp. IMPRESSION: 1. Frontal scalp superficial soft tissue contusion/hematoma. Underlyingcalvarium is intact. No radiopaque foreign body. 2. No finding for intracranial hemorrhage, mass, or acute infarct. 3. Moderate volume loss and mild presumed sequela of chronicmicrovascular ischemic change. Small chronic infarct left frontal lobe. Jimi Olson MD CT from Last 3 Months Advance Directives * Full Code (Latest Code Status on File) Date Activated Date Inactivated Comments 10/18/2020 8:06 AM 10/19/2020 2:33 AM Suspend DNR wishes during procedure and immediate post anesthesia period. Question Answer Comments Code Status Discussion: Discussed * Full Code Date Activated Date Inactivated Comments 10/04/2020 8:40 AM 10/04/2020 2:15 PM Suspend DNR wi shes during procedure and immediate post anesthesia period. Question Answer Comments Code Status Discussion: Discussed Care Teams Waterproofing Machine Operator Relationship Specialty Start [place] [id number] [place] [address] PCP - General Family Practice 08/12/20
--- OUTSIDE RECORDS SUMMARY | 2024-01-08 07:19 | XMS_ITS | Encounter Summary ---
Author Name Unknown Organization [facility] Address [address] [place] [address] Care Team Providers Care Heating Repair Technician Name Role Phone Elsewhere, Pcp Primary Care Provider Unavailabl e Reason for Visit * Reason Comments Irregular Heart Beat Encounter Details Date Type Department Care Team (Late st Contact Info) Description 10/07/2023 12:06 PM SURGICAL APPLIANCE FITTER - 10/07/2023 4:43 PM SURGICAL APPLIANCE FITTER Emergency [facility] Emergency Department [address] [place] [address] Jamin Maldonado M.D. [address] [place] [address] Fibrillation Atrial (AF) NOS (Primary Dx) Discharge Disposition: Home or Self Care Social [...] often do you attend chur ch or hinduism services? More than 4 times per year 01/11/2020 Do you belong to any clubs o r organizations such as anabaptism groups, unions, fraternal or athletic groups, or [...] and heating? Not hard at all 01/11/2020 [facility] - Occupational [...] Sign Reading Time Taken Comments Blood Pressure 119/78 10/07/2023 2:30 PM SURGICAL APPLIANCE FITTER Pulse 90 10/07/2023 2:30 PM SURGICAL APPLIANCE FITTER Temperature 36.7 ??C (98.1 ??F) 10/07/2023 12:[address] Respiratory Rate 18 10/07/2023 2:30 PM SURGICAL APPLIANCE FITTER Oxygen Saturation 97% 10/07/2023 2:30 PM SURGICAL APPLIANCE FITTER Inhaled Oxygen Concentration - - Weight 97 kg (213 lb 13.5 oz) 10/07/2023 12:09 P M SURGICAL APPLIANCE FITTER Height - - Body Mass Index 28.06 01/11/2020 10:07 AM CDT documented in this encounter Discharge Instructions * Discharge Instructions* Roxanne Abdul M.D. - 10/07/2023 3:36 PM SURGICAL APPLIANCE FITTER - If you develop recurrence of chest pain with shortness of breath, sweating, nausea or vomiting, you will need to be evaluated immediately. - We recommend continuing to follow with your Labor Supervisor for further management of your atrial fibrillation. ICAL APPLIANCE FITTER documented in this encounter Medications at Time of Discharge Medication Sig Dispensed Refills Start Date End Date Accu-Chek Guide Gl[facility] USE TO TEST BLOOD SUGARS TWICE DAILY 09/06/2023 acetaminophen (ACETAMINOPHEN EXTRA STRENGTH) 500 mg tablet Take 1 tablet by mouth as needed. pain 02/11/2014 acetaminophen/diphenh ydramine (DIPHENHYDRAMINE-ACET AMINOPHEN ORAL) Take 1 tablet by mouth at bedtime as needed. 25 mg/500 mg sleep 02/11/2014 BD Ultra-Fine Short Pen Needle 31 [...] 2 mg by mouth at bedtime. 08/06/2022 glipiZIDE (GLUCOTROL XL) 5 mg 24 hr tablet Take 1 tablet by mouth daily. 02/11/2014 insulin glargine 100 unit/mL (3 mL) injection Inject 30 Units under the skin daily. 08/26/2015 lidocaine (LIDODERM) 5 % Place 1 patch on the skin as needed. Apply to foot losartan (COZAAR) 100 mg tablet Take 100 mg by mouth daily. melatonin 5 mg tablet Take 5 mg by mouth. Prefers lunesta metFORMIN XR (GLUCOPHAGE-XR) 500 mg 24 hr tablet Take 500 mg by mouth daily with breakfast. 06/06/2023 metFORMIN XR (GLUCOPHAGE-XR) 500 mg 24 hr tablet Take 500 mg by mouth daily. 06/06/2023 mirabegron (Myrbetriq) 50 mg 24 hr tablet Take 1 tablet (50 mg total) by mouth daily. 90 tablet 3 05/07/2023 naproxen sodium (ALEVE) 220 mg tablet Take [...] mg by mouth daily with dinner. 09/30/2023 trospium (SANCTURA XR) 60 mg 24 hr capsule Take 1 capsule (60 mg total) by mouth every morning before breakfast. 90 capsule 3 04/25/2023 04/24/2024 vit A/vit C/vit E/zinc/copper (PRESERVISION AREDS ORAL) Take 1 tablet by mouth 2 (two) times a day. 06/15/2013 amLODIPine (NORVASC) 2.5 mg tablet Take 2.5 mg by mouth daily. 5MG 06/02/2023 10/22/2023 atenolol-chlorthalido ne (TENORETIC) 50-25 mg per tablet Take 1 tablet by mouth daily. 02/11/2014 10/22/2023 ibuprofen-diphenhydrA MINE cit (ADVIL PM) 200-38 mg tablet Take 1 tablet by mouth as needed. sleep 02/11/2014 10/22/2023 INSULIN ASPART, NIACINAMIDE, SC Inject under the skin. Uses sliding scale. Usually uses around 58 units as needed. 09/19/2015 10/22/2023 MAGNESIUM ORAL Take 1 tablet by mouth as needed (muscle cramps). 03/18/2017 10/22/2023 simvastatin (ZOCOR) 20 mg tablet Take 20 mg by mouth at bedtime. 10/22/2023 zolpidem (AMBIEN) 10 mg tablet Take 1 tablet by mouth as needed. Sleep 02/11/2014 10/22/2023 documented as of this encounter Consult Notes * Dexter Mercado M.D. - 10/07/2023 4:43 PM CST Was asked by ED staff this morning to come it on plans to have this patient undergo cardioversion in the [facility]. Informed him that we are completely booked in our cardioversion lab for least thenext 3 days in that since the patient does have a previously arranged appointment to get cardioversion in the [facility] 1st part of next week that he should continue with that plan. I discussed this afternoon with a new ED staff, Dr. Whaley I still agree with our morning recommendations. Have discussed with the patient and his and they are both in agreement and will proceed with plans to have this done next week in the [facility]. Impression: #1 Atrial fibrillation Plan: Undergo cardioversion next week as previously arranged in the [facility] ICAL APPLIANCE FITTER documented in this encounter ED Notes * Jamin Maldonado M.D. - 10/07/2023 2:07 PM CST I have personally seen and examined this patient. I have fully participated in the care of this patient. I have reviewed all clinical information including history, physical exam, orders, and plan. Carrie with the note of the resident. Mr. Alaniz is a very pleasant 83-year-old male who presents with atrial flutter rate controlled with atenolol and anticoagulated with rivaroxaban. On exam he is afebrile nontoxic appearing. Overall he appears very comfortable. His exam is noteworthy for a rate control irregularly irregular rhythm, but no signs of volume overload. He has scheduled cardioversion next week through [facility]. He presents for a 2nd opinion of management and hold for expedited management at [facility]. Patient is hemodynamically and vitally stable. Overall, his presenting symptoms appear very similar tothose outlined in his corporate strategy associate, Dr. Nicanor Klein's note from 09/23/2023. He does not have palpitations and is not short of breath at rest. He does not have new chest pain with exertion and associated shortness of breath, nausea, diaphoresis that would suggest ACS. We will obtain an EKG and troponinsto more definitively rule out ACS. I appreciate a conversation I had with cardiology colleagues who agree that he has a very reasonable and reassuring plan that can be completed by his practitioner up in the [facility]. Anticipate discharge home. ED Course as of 10/15/23 1555 Mon Oct 07, 2023 1411 BUN (Blood Urea Nitrogen), P(!): 39 1411 Creatinine(!): 1.79 Slightly prerenal., and known diabetes accounts for his mild hyperglycemia 1412 NT-Pro BNP(!): 1402 1412 Troponin T, Baseline, 5th gen(!): 28 Troponin is most likely elevated secondary to the renal insufficiency but will continue to trend. 1412 INR: 1.7 1412 Hemoglobin: 13.5 Not anemic 1412 Leukocytes(!): 14.2 1412 Neutrophils(!): 12.28 1412 Platelet Count(!): 582 1413 My interpretation of the ECG: Rate controlled atrial fibrillation with 1 PVC. Normal QRS morphology. Diffuse T-wave inversion. Final Diagnoses: as of 10/15/23 1555 Fibrillation Atrial (AF) NOS Jamin Maldonado M.D. 10/15/23 1557 ICAL APPLIANCE FITTER * Roxanne Abdul M.D. - 10/07/2023 1:36 PM CST SUBJECTIVE CHIEF COMPLAINT/REASON FOR VISIT Irregular Heart Beat HISTORY OF PRESENT ILLNESS 83-year-old male who presents for 2nd opinion regarding management of recently diagnosed atrial flutter. Medical comorbidities include hypertension, dyslipidemia, calcific coronary artery disease, type 2 diabetes mellitus, chronic pain. Patient follows with [facility] corporate strategy associate, Nicanor Klein MD. About 8-9 weeks ago patient had episode of chest pain while sitting at computer and basement. He was evaluated at outside ED whichrevealed flat troponins, no acute ischemic changes on EKG. He was noted to have atrial flutter and was started on rivaroxaban. Dr. Klein includes a nice summary of this history in his note from 09/23/2023. Plan from that visit with Dr. Klein was for Holter monitor and continuing atenolol-chlorthalidone and losartan. Per chart, appears that Holter monitor results confirmed atrial flutter that was rate controlled. Per patient, plan is for cardioversion next week. Today, patient reports his primary concern is fatigue. He wakes up in the morning and gets ready for breakfast but feels like he needs to go back to bed and ends up sleeping through most of the morning. He does not have palpitations. He occasionally has shortness of breath that is worse with exertion. He has some chest discomfort that he describes as if a person had punched him in the chest but does not endorse that this is pain sensation. This chest discomfort comes on at seemingly random times, such as when patient is in the shower, not necessarily always with exertion. Patient has some lightheadedness with exertion as well. All of these symptoms are similar to those outlined in Dr. Klein's note from 09/23. Patient explains that they feel frustrated that cardioversion is next week and wish that it could be sooner. They hope for a 2nd opinion to ensure that this management plan is appropriate as well as hope for sooner cardioversion at [place] possible. Patient's has questions about amiodarone which patient has a relative on and asks why there is not a pill that can change patient's heart rhythm. History provided by: Patient, significant other and medical records REVIEW OF SYSTEMS Pertinent review of systems included in HPI above. OBJECTIVE Initial Vitals [10/07/23 1209] Temperature 36.7 ??C Pulse Rate 93 Heart Rate Resp Rate 18 Blood Pressure 118/66 SpO2 97 % Pain Score PHYSICAL EXAMINATION Constitutional: No distress. HENT: Head: Normocephalic. Nose: Nose normal. No nasal discharge. Mouth/Throat: Mucous membranes are moist. Eyes: Conjunctivae are normal. Cardiovascular: Normal rate and normal heart sounds. An irregular rhythm present. Pulses are palpable. No murmur heard. Pulmonary/Chest: Effort normal and breath sounds normal. He has no wheezes. Abdominal: Soft. Bowel sounds are normal. exhibits no distension. There is no abdominal tenderness. Neurological: Alert. Skin: Skin is warm and dry. He is not diaphoretic. ASSESSMENT/PLAN Assessment and Plan Patient is an 83-year-old male who presents with atrial flutter rate controlled with atenolol and anticoagulated with rivaroxaban. He has scheduled cardioversion next week through [facility]. He presents for a 2nd opinion of management and hold for expedited management at [facility]. Patient is hemodynamically and vitally stable. Overall, his presenting symptoms appear very similar to those outlined in his corporate strategy associate, Dr. Nicanor Klein's note from 09/23/2023. He does not have palpitations and is not short of breath at rest. He does not have new chest pain with exertion and associated shortness of breath, nausea, diaphoresis that would suggest ACS. We will obtain an EKG and troponins to more definitively rule out ACS. We will also touch base with Cardiology to ensure that patient's planned current atrial fibrillation management is appropriate. ED Course as of 10/07/232000Oct 07, 2023 1338 ECG 12 Lead Atrial fibrillation. Rate controlled. T-wave inversions are diffuse. Previous tracings from outsiderecords are unavailable for comparison. 1544 Troponin T, 2 hr, 5th gen(!): 23 Initial troponin 28. Delta -5. Previous value is 28, so troponin has been overall stable. 1545 Leukocytes(!): 14.2 Leukocytosis with left shift. Patient has no localizing infectious symptoms. 1551 Glucose, P(!): 233 Patient is on metformin. 1551 Creatinine(!): 1.79 1657 Discussed with Cardiology diffuse T wave inversions on EKG and 2hr troponin delta -5. They areokay with patient discharging to home with already scheduled Cardiology follow-up through [place].Plan was discussed with patient and spouse. Final Diagnoses: as of 10/07/232000 Fibrillation Atrial (AF) NOS Roxanne Abdul M.D. Resident 10/07/23 2018 ICAL APPLIANCE FITTER * Jaqueline Restrepo R.N. - 10/07/2023 12:17 PM CST Patient presents to the Emergency Department with palpitations. Patient states symptoms have been present for almost two months. Patient reports intermittent dizziness and chest pain as well. Jaqueline Restrepo R.N. 10/07/23 1218 ICAL APPLIANCE FITTER documented in this encounter Plan of Treatment Upcoming Encounters Date Type Department Care Team (Latest Contact Info) Description 01/29/2024 10:45 AM CDT Clinical Communication Virtual Review in [address] [phone] 02/05/2024 1:00 PM CDT Comprehensive Visit Department of Neurology in [address] [address] Arturo Barfield M.D. [address] [place] [phone] documented as of this encounter Procedures Procedure Name Priority Date/Time Associated Diagnosis Comments TROPONIN T, 2H/6H, 5TH GEN, P Timed 10/07/2023 2:56 PM SURGICAL APPLIANCE FITTER CBC WITH DIFFERENTIAL, B STAT 10/07/2023 12:40 PM SURGICAL APPLIANCE FITTER TROPONIN T, BASELINE, 5TH GEN, P STAT 10/07/2023 12:39 PM SURGICAL APPLIANCE FITTER NT-PRO B-TYPE NATRIURETIC PEPTIDE (BNP), S STAT 10/07/2023 12:39 PM SURGICAL APPLIANCE FITTER PROTHROMBIN TIME (PT), P STAT 10/07/2023 12:39 PM SURGICAL APPLIANCE FITTER MAGNESIUM, S STAT 10/07/2023 12:39 PM SURGICAL APPLIANCE FITTER BASIC METABOLIC PANEL, S/P STAT 10/07/2023 12:39 PM SURGICAL APPLIANCE FITTER ECG STAT 10/07/2023 12:16 PM SURGICAL APPLIANCE FITTER documented in this encounter Results * (ABNORMAL) Troponin T, 2h/6h, 5th Gen (10/07/2023 2:56 PM SURGICAL APPLIANCE FITTER) Troponin T, 2 hr, 5th gen 23(H) <=15 ng/L 10/07/2023 3:33 PM SURGICAL APPLIANCE FITTER STMA 2H Delta -5 ng/L 10/07/2023 3:33 PM SURGICAL APPLIANCE FITTER STMA 2H Delta Interp Indeterminate 10/07/2023 3:33 PM SURGICAL APPLIANCE FITTER STMA Comment:Indeterminate delta, additional sample suggested Troponin T, 6 hr, 5th gen CANCELED ng/L 10/08/2023 1:06 PM SURGICAL APPLIANCE FITTER STMA Comment: Patient already discharged Result canceled by the ancillary. 6H Delta CANCELED ng/L 10/08/2023 1:06 PM SURGICAL APPLIANCE FITTER STMA Comment:Result canceled by t he ancillary. 6H Delta Interp CANCELED 10/08/2023 1:06 PM SURGICAL APPLIANCE FITTER STMA Comment:Result canceled by t he ancillary. Blood (Blood, Venous) 10/07/2023 2:56 PM SURGICAL APPLIANCE FITTER 10/07/2023 3:00 PM SURGICAL APPLIANCE FITTER Narrative [facility] - 10/08/2023 1:06 PM SURGICAL APPLIANCE FITTER Specimen Information: Specimen ID: [id number] Specimen Type: Blood Specimen Collection Start Date: 10/07/2023 ??2:56 PM Specimen Received Date: 10/07/2023 ??3:00 PM Specimen ID: [id number] Specimen Type: Blood Specimen Collection Start Date: 10/08/2023 ??1:06 PM Specimen Received Date: 10/08/2023 ??1:06 PM Irish Rutledge P.A.-C. LAB BLOOD TROPONI N [facility] [address] [place] [address], [facility] STMA [facility] [address] [place] [address] * (ABNORMAL) CBC with Differential, Blood (10/07/2023 12:40 PM SURGICAL APPLIANCE FITTER) Pathologist [facility] Hemoglobin 13.5 13.2 - 16.6 g/dL 10/07/2023 12:52 PM SURGICAL APPLIANCE FITTER STMA Hematocrit 41.1 38.3 - 48.6 % 10/07/2023 12:52 PM SURGICAL APPLIANCE FITTER STMA Erythrocytes 4.36 4.35 - 5.65 x10(12)/L 10/07/2023 12:52 PM SURGICAL APPLIANCE FITTER ST[facility] MCV 94.3 78.2 - 97.9 fL 10/07/2023 12:52 PM SURGICAL APPLIANCE FITTER STMA RBC Distrib Width 12.6 11.8 - 14.5 % 10/07/2023 12:52 PM SURGICAL APPLIANCE FITTER STMA Platelet Count 582(H) 135 - 317 x10(9)/L 10/07/2023 12:52 PM SURGICAL APPLIANCE FITTER STMA Leukocytes 14.2(H) 3.4 - 9.6 x10(9)/L 10/07/2023 12:52 PM SURGICAL APPLIANCE FITTER STMA Neutrophils 12.28(H) 1.56 - 6.45 x10(9)/L 10/07/2023 12:51 PM SURGICAL APPLIANCE FITTER [facility] Lymphocytes 1.12 0.95 - 3.07 x10(9)/L 10/07/2023 12:52 PM SURGICAL APPLIANCE FITTER STMA Monocytes 0.76 0.26 - 0.81 x10(9)/L 10/07/2023 12:52 PM SURGICAL APPLIANCE FITTER STMA Eosinophils <0.03 0.03 - 0.48 x10(9)/L 10/07/2023 12:52 PM SURGICAL APPLIANCE FITTER STMA Basophils 0.04 0.01 - 0.08 x10(9)/L 10/07/2023 12:52 PM SURGICAL APPLIANCE FITTER [facility] Blood (Blood, Venous) 10/07/2023 12:40 PM SURGICAL APPLIANCE FITTER 10/07/2023 12:48 PM SURGICAL APPLIANCE FITTER Irish Rutledge P.A.-C. LAB BLOOD ADD-ON [facility] [address] [place] [address], [facility] [address] [place] [address] * (ABNORMAL) NT-Pro B-Type Natriuretic Peptide (BNP) (10/07/2023 12:39 PM SURGICAL APPLIANCE FITTER) NT-Pro BNP 1402(H) <=540 pg/mL 10/07/2023 1:15 PM SURGICAL APPLIANCE FITTER [facility] Comment: NT-proBNP values less than 300 pg/mL [...] absence of renal failure. Blood (Blood, Venous) 10/07/2023 12:39 PM SURGICAL APPLIANCE FITTER 10/07/2023 12:48 PM SURGICAL APPLIANCE FITTER Irish Rutledge P.A.-C. LAB BLOOD ADD-ON [facility] [address] [place] [address], [facility] [address] [place] [address] * (ABNORMAL) Prothrombin Time (PT) (10/07/2023 12:39 PM SURGICAL APPLIANCE FITTER) Prothrombin Time, P 18.9(H) 9.4 - 12.5 sec 10/07/2023 12:55 PM SURGICAL APPLIANCE FITTER [facility] INR 1.7 0.9 - 1.1 10/07/2023 12:55 PM SURGICAL APPLIANCE FITTER [facility] Comment: ----ADDITIONAL INFORMATION---- Standard intensity warfarin therapeutic range: 2.0 to 3.0 ?? High intensity warfarin therapeutic range: 2.5 to 3.5 Blood (Blood, Venous) 10/07/2023 12:39 PM SURGICAL APPLIANCE FITTER 10/07/2023 12:48 PM SURGICAL APPLIANCE FITTER Irish DaleyCCuong LAB BLOOD ADD-ON [facility] [address] [place] [address], [facility] [address] [place] [address] * (ABNORMAL) Troponin T, Baseline, 5th gen (10/07/2023 12:39 PM SURGICAL APPLIANCE FITTER) Troponin T, Baseline, 5th gen 28(H) <=15 ng/L 10/07/2023 1:06 PM SURGICAL APPLIANCE FITTER [facility] Blood (Blood, Venous) 10/07/2023 12:39 PM SURGICAL APPLIANCE FITTER 10/07/2023 12:48 PM SURGICAL APPLIANCE FITTER Irish Rutledge P.A.-C. LAB BLOOD TROPONI N [facility] [address] [place] [address], [facility] [address] [place] [address] * Magnesium (10/07/2023 12:39 PM SURGICAL APPLIANCE FITTER) Magnesium, S 1.8 1.7 - 2.3 mg/dL 10/07/2023 1:31 PM SURGICAL APPLIANCE FITTER DTL Blood (Blood, Venous) 10/07/2023 12:39 PM SURGICAL APPLIANCE FITTER 10/07/2023 1:10 PM SURGICAL APPLIANCE FITTER Irish Rultedge P.A.-C. LAB BLOOD ADD-ON [facility] [address] [place] [address], [facility] DTL [facility] [address] [place] [address] * (ABNORMAL) Basic Metabolic Panel (10/07/2023 12:39 PM SURGICAL APPLIANCE FITTER) Potassium, P 4.1 3.6 - 5.2 mmol/L 10/07/2023 1:10 PM SURGICAL APPLIANCE FITTER STMA Sodium, P 137 135 - 145 mmol/L 10/07/2023 1:10 PM SURGICAL APPLIANCE FITTER STMA Chloride, P 98 98 - 107 mmol/L 10/07/2023 1:10 PM SURGICAL APPLIANCE FITTER STMA Bicarbonate, P 28 22 - 29 mmol/L 10/07/2023 1:10 PM SURGICAL APPLIANCE FITTER STMA Anion Gap, P 11 7 - 15 10/07/2023 1:10 PM SURGICAL APPLIANCE FITTER STMA BUN (Blood Urea Nitrogen), P 39(H) 8 - 24 mg/dL 10/07/2023 1:10 PM SURGICAL APPLIANCE FITTER STMA Creatinine 1.79(H) 0.74 - 1.35 mg/dL 10/07/2023 1:10 PM SURGICAL APPLIANCE FITTER STMA Estimated GFR (eGFR) 37(L) >=60 mL/min/BSA 10/07/2023 1:10 PM SURGICAL APPLIANCE FITTER STMA Comment: Estimated GFR calculated using the 2020 CKD_EPI creatinine equation. Calcium, Total, P 9.4 8.8 - 10.2 mg/dL 10/07/2023 1:10 PM SURGICAL APPLIANCE FITTER STMA Glucose, P 233(H) 70 - 140 mg/dL 10/07/2023 1:10 PM SURGICAL APPLIANCE FITTER STMA Blood (Blood, Venous) 10/07/2023 12:39 PM SURGICAL APPLIANCE FITTER 10/07/2023 12:48 PM SURGICAL APPLIANCE FITTER Irish Rutledge P.A.-C. LAB BLOOD ADD-ON [facility] [address] [place] [address], [facility] STMA [facility] [address] [place] [address] * ECG 12 Lead (10/07/2023 12:16 PM SURGICAL APPLIANCE FITTER) Ventricular Rate ECG/Min 94 BPM MUSE QRSD Interval 86 ms MUSE QT Interval 332 ms MUSE QTC Interval 415 ms MUSE R [place] -9 degrees MUSE T Wave [place] -34 degrees MUSE 10/07/2023 12:1 6 PM SURGICAL APPLIANCE FITTER 10/07/2023 12:39 PM SURGICAL APPLIANCE FITTER Impressions MUSE - 10/07/2023 12:39 PM SURGICAL APPLIANCE FITTER Atrial fibrillation with premature ventricular or aberrantly conducted complexes ST and T wave abnormality, consider anterolateral ischemia When compared with ECG of 11-FEB-2014 12:25, Atrial fibrillation has replaced Sinus rhythm T wave inversion now evident in Anterolateral leads Reviewed by DAYANA Pruitt Narrative Procedure Note Sincere Celaya M.D., Ph.D. - 10/07/2023 IMPRESSION: Atrial fibrillation with premature ventricular or aberrantly conducted complexes ST and T wave abnormality, consider anterolateral ischemia When compared with ECG of 11-FEB-2014 12:25, Atrial fibrillation has replaced Sinus rhythm T wave inversion now evident in Anterolateral leads Reviewed by DAYANA Pruitt Jamin Maldonado M.D. ECG ORDERABLES MUSE NA documented in this encounter Visit Diagnoses Diagnosis Fibrillation Atrial (AF) NOS- Primary Fibrillation Atrial (AF) NOS documented in this encounter Additional Health Concerns Assessment Noted Time PHQ-9 Depression Total Score: 1 07/16/20 13 2:30 PM SURGICAL APPLIANCE FITTER documented as of this encounter Care Teams Heating Repair Technician Relationship Specialty Start Date End Date Elsewhere, Pcp PCP - General Internal Medicine 10/07/23 documented as of this encounter
--- OUTSIDE RECORDS SUMMARY | 2024-01-08 07:19 | XMS_ITS | Encounter Summary ---
Author Name Unknown Organization [facility] Address [address] [place] [address] Care Team Providers Care Nurse Wound Name Role Phone Elsewhere, Pcp Primary Care Provider Unavailabl e Reason for Visit * Reason Onset Date Comments Triage 10/07/2023 Encounter Details Date Type Department Care Team (Latest Contact Info) Description 10/07/2023 Clinical Communication Department of Cardiovascular Medicine in [place], [place] [address] [place] [address] Capsule MakerTyson M.D. Triage Social History Tobacco Use Types Packs/Day Years [...] any clubs o r organizations such as taoism groups, unions, fraternal or athletic groups, or [...] and heating? Not hard at all 01/11/2020 [facility] Occupational Stress Questionnaire Answer Date [...] as of this encounter Progress Notes * Ade Alba R.N. - 10/08/2023 8:02 AM CST General Cardiology Triage The following information has been gathered from review of available medical records as of 10/08/23for triage purposes.. It is not a comprehensive summary, and has not been verified by the patient. The Appointment Triage Team does not establish a relationship with the patient, nor manage the patient's care outside of an initial review for the purposes of pre-appointment triage. Summary Ilan Alaniz is a 83 y.o. year old male from [address] [place] [address] [place] [address]. He is self referred for Extreme fatigue; Shortness of breath. Cardiac History A flutter Mod CAC per OS CTA Pertinent Medical/Surgical History HTN HLD DMT2 [facility] CV ED consult 10/07/2023 Dr. Mercado Was asked by ED staff this morning to come it on plans to have this patient undergo cardioversion in the [facility]. Informed him that we are completely booked in our cardioversion lab for least the next 3 days in that since the patient does have a previously arranged appointment to get cardioversion in the [facility] 1st part of next week that he should continue with that plan. I discussed this afternoon with a new ED staff, Dr. Whaley I still agree with our morning recommendations. Have discussed with the patient and his and they are both in agreement and will proceed with plans to have this done next week in the [facility]. Impression: #1 Atrial fibrillation Plan: Undergo cardioversion next week as previously arranged in the [facility] ED notes 10/07/2023 Dr. Abdul 83-year-old male who presents for 2nd opinion regarding management of recently diagnosed atrial flutter. Medical comorbidities include hypertension, dyslipidemia, calcific coronary artery disease, type 2 diabetes mellitus, chronic pain. Patient follows with [facility] senior cognos developer, Nicanor Klein MD. About 8-9 weeks ago [...] well as hope for sooner cardioversion at [facility]. Patient's has questions about amiodarone which patient has a relative on and asks why there is not a pill that can change patient's heart rhythm... Assessment and Plan Patient is an 83-year-old male who presents with atrial flutter rate controlled with atenolol and anticoagulated with rivaroxaban. He has scheduled cardioversion next week through [facility]. He presents for a 2nd opinion of management and hold for expedited management at [facility]. Patient is hemodynamically and vitally stable. Overall, his presenting symptoms appear very similar to those outlined in his senior cognos developer, Dr. Nicanor Klein's note from 09/23/2023. He [...] planned current atrial fibrillation management is appropriate. 10/2023 Lab Results Component Value Date WBC 14.2 (H) 10/07/2023 HGB 13.5 10/07/2023 HCT 41.1 10/07/2023 MCV 94.3 10/07/2023 PLT 582 (H) 10/07/2023 Lab Results Component Value Date NA 137 10/07/2023 KSERUM 4.4 10/01/2023 KPLASMA 4.1 10/07/2023 CL 98 10/07/2023 BICARB 28 10/07/2023 CREATININE 1.79 (H) 10/07/2023 EGFRBLKAA 64 01/11/2020 EGFRNONBLKAA 55 (L) 01/11/2020 EGFR 37 (L) 10/07/2023 BUN 39 (H) 10/07/2023 ANIONGAP 11 10/07/2023 GLUCOSE 233 (H) 10/07/2023 CALCIUM 9.4 10/07/2023 Ma.8 NT proBNP: 1402 Troponin: 28>23 Outside Medical Records Care Everywhere TTE 10/01/2023 The visual ejection fraction is 60-65%. Left ventricular systolic function is normal. The right ventricular systolic function is mild to moderately reduced. Trivial pericardial effusion The rhythm was rapid atrial fibrillation. The study was technically difficult. CV Telephone encounter 09/27/2023 Rhythm atrial flutter with controlled rate, however suspect his fatigue is related to this rhythm,recommend he meet with RIANNA at next available to discuss CAIN/DCCV (or DCCV alone if on rivaroxaban for >3 weeks by time of DCCV) to restore sinus rhythm, should still have TTE as planned. Called patient to discuss the holter update and Dr. Klein's recommendation to consider DCCV with an RIANNA discussion for risk and benefit. Patient is eager to get this set up. He wants to be back in [facility]. Patient states he has been taking his xarelto with no missed doses. His first day of the medicationwas 09/12/2023. Order placed for RIANNA visit and DCCV plan. Message to scheduling team 48 hour Holter 09/23/2023 Kamron Alaniz was monitored for 48 hours. The quality of the tracing was good. The principlerhythm was Atrial Flutter. The average HR was 88 bpm, maximum HR was 158 bpm, and minimum HR was 76 bpm. There were 0 pauses greater than 2.0 seconds. The QRS duration was 0.07 seconds, and QT interval was 0.21-0.33 seconds. 2. There were 2699 ventricular ectopics, a 1% burden. 2651 of these were isolated PVCs. There were 21 couplets. 3. Patient event button was pressed 1 time and marked no symptoms. The rhythm was Atrial Flutter. CV Visit Note 09/23/2023 Patient is an 83-year-old male with a past medical history significant for hypertension, diabetes,chronic pain, dyslipidemia, calcific coronary artery disease, recently diagnosed atrial flutter, who presents for follow-up regarding recent ED visit for chest pain. Patient seen in ED 08/16/2023 for chest pain. He was at rest at a computer when he developed a painin his neck that radiated down to his left upper chest. Blood pressure markedly elevated at 181/95 mmHg. ECG demonstrated sinus rhythm with nonspecific ST segment changes, no acute ischemic changes. Labs notable for high-sensitivity troponin 27, next value 25. CTA aorta study was negative for acuteaortic pathology, he was noted to have moderate coronary artery calcifications. Subsequently was assessed with a Lexiscan nuclear stress test 08/21/2023 that was read as probably negative for inducible myocardial ischemia or infarction, LVEF 64%. Study reviewed personally, he does have decreased r adiotracer uptake in the inferior wall segments, noted to have normal wall motion, and significant diaphragmatic attenuation. Patient also was seen at an outside facility ED and was diagnosed with atrial flutter and was started on rivaroxaban, since then has not had recurrence of this chest discomfort. Denies palpitations associated with the atrial flutter diagnosis. Denies symptoms of orthopnea/PND. Patient has been experiencing significant daytime fatigue, who accompanies him today states that patient is pale sometimes, with lack of energy. Also has been experiencing dizziness/lightheadedness, primarily when standing quickly from a seated or lying position. BP today in clinic 116/64 mmHg. ECG 08/21/2023 demonstrated normal sinus rhythm with no acute ischemic changes. RI interval 194 ms. Assessment and Plan/Recommendations: # Neck/chest pain, etiology not entirely clear, troponin only minimally elevated and flat in trajectory in ED, was noted to have significant hypertension at that time. Subsequent Lexiscan stress testdid not demonstrate any significant reversible perfusion defects, just a fixed perfusion defect with normal wall motion noted, as well as diaphragmatic attenuation, felt to be most consistent with attenuation artifact. CTA aorta did demonstrate coronary artery calcifications. # Recently diagnosed atrial flutter. This was done at an outside facility, records are unavailable for review. Started on rivaroxaban. -Discussed prior cardiac diagnostic studies in detail, reviewed his actual nuclear stress test images today in clinic. Discussed pathophysiology of coronary artery disease utilizing a heart model. 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 - Discussed options for further evaluation and management. Overall clinical presentation does not seem classically characteristic of myocardial ischemia, suspect the minimally elevated troponin reflects demand ischemia in the setting of hypertension, with known calcific coronary artery disease. Reviewed that the nuclear stress test was reassuring, though was suboptimal due to patient body habitus(obesity, diaphragmatic shadowing). Will proceed with an echocardiogram to assess LV function, if there is evidence of cardiomyopathy, then would favor cardiac catheterization for definitive assessment of coronary anatomy. Discussed risks associated with this procedure including renal dysfunction, bleeding complications, stroke, heart attack, . If no significant abnormalities on the echocardiogram, then would favor holding off on cardiac catheterization at this time, as risks would likely outweigh benefits, unless of course he has recurrent chest pain/concerning symptoms. Patient and voiced understanding and were in agreement. - Reviewed this recent atrial flutter diagnosis made at outside facility, he had been started on rivaroxaban already, discussed risks of bleeding weighed against benefits of stroke prevention. Deniesabnormal bleeding issues, advised to continue. - Will assess further with a Holter monitor - Patient is also on prednisone for what sounds like polymyalgia rheumatica, records unavailable for review, if cardiac workup as above is unrevealing, symptoms of fatigue are likely related to this underlying rheumatologic problem - Will change simvastatin to rosuvastatin. Recommend follow-up lipids and ALT in a few months with PCP. - Agree with continuing atenolol-chlorthalidone, losartan - Positional dizziness/lightheadedness consistent with orthostatic symptoms, advised to increase fluid intake, he does endorse that he likely does not consume enough fluids throughout the day - Sublingual nitroglycerin as needed for chest pain, discussed risks/side effects/precautions - Follow-up with cardiology RIANNA in 1 month, if stable at that time and cardiac diagnostic testing is favorable, follow-up in cardiology clinic in the future as needed NM SPECT 08/21/2023 The nuclear stress test is probably negative for inducible myocardial ischemia or infarction. Left ventricular function is normal. The left ventricular ejection fraction at stress is 64%. There is no prior study for comparison. CT Aorta 08/16/2023 1. No aortic dissection or other acute aortic abnormality. 2. No acute abnormality or specific cause of chest pain are identified. 3. Sigmoid colonic diverticulosis. No inflamed colonic diverticuli. 4. Sequela of remote granulomatous disease. CORONARY ARTERY CALCIFICATION: Moderate. Triage Determination Pending RIANNA review. SITE ADMIN documented in this encounter Miscellaneous Notes * Telephone Encounter - Samra Tinsley - 10/07/2023 8:56 AM CST General Cardiology Triage Questionnaire Information gathered by PASS upon initial Appointment Request Self-Referral or Provider Referral: Self Referral Primary Cardiac Concern: Extreme fatigue Shortness of breathe When did your symptoms first start? Aug 16 ER at [place] Does anything make your symptoms better or worse? Just sleeping makes it better. When do you feel the symptoms (random, when exercising, during the night, etc.)? Throughout the day.. Eating Zero [employer] Do you have any limitations in physical activity? Yes if he takes a shower he needs to lay down.. Activity exhausts him Do you have any other cardiac concerns that you would like addressed? Unknown Have you ever had a prior evaluation or treatment of these concerns? (If yes, what was the outcome?) Yes: told them he needs a cardioversion but they want a 2nd opinion.. has other appts scheduled [facility] want to come here . Have you had any of the following cardiac tests/procedures within the last [address]? [address] Scan (coronary calcium score, CT angiogram) , ECG/EKG, Echocardiogram, Heart Rhythm Monitor (holter monitor, event monitor, prolonged sulky driver, etc.) , and Stress Test Have you ever been diagnosed with any of the following: Heart Conditions: None diagnosed with heart flutter Breathing conditions: None Primary Care Provider: (name/facility) [facility] Capsule Maker: (name/facility) Chitra Mejia Cardio Dr Klein Status of Records: (Requested, in Care Everywhere, etc.) Requested (no records available) Other: SITE ADMIN documented in this encounter Plan of Treatment Upcoming Encounters Date Type Department Care Team (Latest Contact Info) Description 01/29/2024 10:45 AM CDT Clinical Communication Virtual Review in [place], [place] [address] [place] [address] 02/05/2024 1:00 PM CDT Comprehensive Visit Department of Neurology in [place], [place] [address] [place] [phone] Arturo Barfield M.D. [address] [place] [phone] documented as of this encounter Visit Diagnoses Not on filedocumented in this encounter Additional Health Concerns Assessment Noted Time PHQ-9 Depression Total Score: 1 07/16/20 13 2:30 PM WEB SITE ADMIN documented as of this encounter Care Teams Nurse Wound Relationship Specialty Start Date End Date Elsewhere, Pcp PCP - General Internal Medicine 10/07/23 documented as of this encounter
--- OUTSIDE RECORDS SUMMARY | 2024-01-08 07:19 | XMS_ITS | Encounter Summary ---
Author Name Unknown Organization [facility] Address [address] [place] [address] Care Team Providers Care Pilot Captain Name Role Phone Elsewhere, Pcp Primary Care Provider Unavailabl e Reason for Visit * Reason Comments Palpitations Encounter Details Date Type Department Care Team (Late st Contact Info) Description 10/18/2023 3:05 PM FUNCTIONAL ARCHITECT - 10/18/2023 11:42 PM FUNCTIONAL ARCHITECT Emergency [facility] Emergency Department [address] [place] [address] Newton Garcia M.D. [address] [place] [address] Atrial Fibrillation Unspecified (HCC) (Primary Dx) Discharge [...] any clubs o r organizations such as quaker groups, unions, fraternal or athletic groups, or [...] and heating? Not hard at all 01/11/2020 [facility] - Occupational [...] Sign Reading Time Taken Comments Blood Pressure 149/94 10/18/2023 11:15 PM FUNCTIONAL ARCHITECT Pulse 105 10/18/2023 11:15 PM FUNCTIONAL ARCHITECT Temperature 36.7 ??C (98.1 ??F) 10/18/2023 3:55 PM CS T Respiratory Rate 15 10/18/2023 11:15 PM FUNCTIONAL ARCHITECT Oxygen Saturation 95% 10/18/2023 11:15 PM FUNCTIONAL ARCHITECT Inhaled Oxygen Concentration - - Weight - - Height - - Body Mass Index - - documented in this encounter Discharge Instructions * Discharge Instructions* Philippe Robertson M.D. - 10/18/2023 10:54 PM FUNCTIONAL ARCHITECT Please return to the emergency department if you develop difficulties breathing, chest pain, lose consciousness, or any other signs or symptoms you find concerning. The radiology scheduler will reach out to you to schedule your follow up appointment with [facility]. Please keep your appointment with the cardiology team. TIONAL ARCHITECT * Attachments The following attachments cannot be sent through Care Everywhere. * Atrial Fibrillation [id number] (Portuguese) documented in this encounter Medications at Time of Discharge Medication Sig Dispensed Refills Start Date End Date Accu-Chek Guide Glucose Meter [facility] [place] USE TO TEST BLOOD SUGARS TWICE DAILY [...] day before breakfast and dinner. 10/16/2023 10/23/2023 amLODIPine (NORVASC) 2.5 mg tablet Take 2.5 [...] 02/11/2014 10/22/2023 documented as of this encounter ED Notes * Philippe Robertson M.D. - 10/18/2023 8:39 PM CST SUBJECTIVE CHIEF COMPLAINT/REASON FOR VISIT Palpitations HISTORY OF PRESENT ILLNESS History provided by: Patient Ilan Alaniz is an 83-year-old male with a history of atrial fibrillation on anticoagulation and electrocardioversion 2 days ago, presenting for evaluation of fatigue. Patient notes that he has been dealing with generalized fatigue for the past 2 months, and has received care at multiple clinics hospital systems throughout the [facility], and has been unhappy withhis care so far, so he presented to [facility] to establish care. Patient notes that his home health aide today noticed that he was in atrial fibrillation with RVR. They called the [facility], and were able to get an appointment scheduled with cardiology on October 23. Patient notes that without this is his of his health aide, that he had have had no idea he was in atrial fibrillation with RVR, but he does wonder if this is leading to his fatigue that he has been dealing with for the past 2 months. Patient was recently discharged after receiving electrocardioversion 2 days ago, and was started onmetoprolol and rivaroxaban. Patient denies any chest pain or shortness of breath. REVIEW OF SYSTEMS Please see HPI OBJECTIVE Initial Vitals Temperature 10/18/23 1555 36.7 ??C Pulse Rate 10/18/23 1555 77 Heart Rate 10/18/23 1945 (!) 131 Resp Rate 10/18/23 1555 19 Blood Pressure 10/18/23 1555 (!) 158/143 SpO2 10/18/23 1555 95 % Pain Score -- PHYSICAL EXAMINATION Constitutional: Nursing note and vitals reviewed. No distress. HENT: Head: Normocephalic and atraumatic. Mouth/Throat: Mucous membranes are moist. Eyes: Right pupil is round. Left pupil is round. Pupils are equal. Neck: Neck supple. Cardiovascular: Normal heart sounds. An irregularly irregular rhythm present. Tachycardia present. Exam reveals no gallop and no friction rub. No murmur heard. Pulmonary/Chest: Effort normal and breath sounds normal. There is normal air entry. No stridor. No respiratory distress. He has no wheezes. He has no rhonchi. He has no rales. Abdominal: Soft. exhibits no distension. There is no abdominal tenderness. There is no rebound and no guarding. Musculoskeletal: General: No edema. Cervical back: Neck supple. Neurological: Alert and oriented to person, place, and time. Skin: Skin is warm. He is not diaphoretic. ASSESSMENT/PLAN Assessment and Plan 83-year-old male with a history of atrial fibrillation on anticoagulation and electrocardioversion 2 days ago, presenting for evaluation of fatigue. Patient was tachycardic with atrial fibrillation with RVR, but is otherwise stable. Patient was no idea when his current episode of atrial fibrillation with RVR started, as he did not have any clear symptom onset associated with it. Plan is to give the patient IV fluids to try to rate control him, and if this does not work we can give him metoprolol.. ED Course as of 10/19/2337Oct 18, 20231946 ECG 12 Lead Atrial fibrillation with RVR 1946 2H Delta Interp: Not Changing 2313 Patient remains in AFib with RVR despite receiving 1 L of IV fluids. We will give the patient metoprolol to try to rate control. Patient was adamant that he would like to be discharged. We discussed the risks of discharge including that we are unable to control his atrial fibrillation RVR, andthat this may progress to heart failure resulting in chest pain, difficulties breathing, or lightheadedness. Patient expressed that he was aware of these risks, but would still like to be discharged as he was tired of waiting in the emergency department. We proceeded with discharging the patient with a referral for outpatient follow up with primary care. Patient already has an appointment scheduled with Cardiology on October 23 as well for further evaluation of the atrial fibrillation. Final Diagnoses: as of 10/19/2337 Atrial Fibrillation Unspecified (HCC) Philippe Robertson M.D. Resident 10/19/2337 TIONAL ARCHITECT * Newton Garcia M.D. - 10/18/2023 8:30 PM CST SUBJECTIVE CHIEF COMPLAINT/REASON FOR VISIT Palpitations HISTORY OF PRESENT ILLNESS Ilan Alaniz is a 83 y.o. male with a past medical history atrial fibrillation, anticoagulated on Xarelto recently underwent cardioversion on October 16, type 2 diabetes, chronic kidney disease, dyslipidemia community- acquired pneumonia, Atrial fib was cardioverted on Oct 16, 2023. He would 2 months of fatigue and was ultimately diagnosed with atrial fibrillation. He was cards appointment on October 23. Denies history DVT, PE, prolonged immobilization, recent surgery, hemoptysis, fever, chills. REVIEW OF SYSTEMS OBJECTIVE Initial Vitals Temperature 10/18/23 1555 36.7 ??C Pulse Rate 10/18/23 1555 77 Heart Rate 10/18/23 1945 (!) 131 Resp Rate 10/18/23 1555 19 Blood Pressure 10/18/23 1555 (!) 158/143 SpO2 10/18/23 1555 95 % Pain Score -- PHYSICAL EXAMINATION Constitutional: Nursing note and vitals reviewed. Eyes: EOM are normal. Pupils are equal, round, and reactive to light. Cardiovascular: Regular rhythm and normal heart sounds. Tachycardia present. Capillary refill: takes less than 3 seconds Pulmonary/Chest: Effort normal and breath sounds normal. Abdominal: Soft. Bowel sounds are normal. Musculoskeletal: General: Normal range of motion. Right shoulder: No swelling, deformity or effusion. Cervical back: Normal range of motion. Neurological: Alert and oriented to person, place, and time. He has normal sensation and normal strength. GCS eye subscore is 4. GCS verbal subscore is 5. GCS motor subscore is 6. Normal speech. Gaitnormal. ASSESSMENT/PLAN ED Course as of 10/18/232037Oct 18, 20232037 NT-Pro BNP(!): 1599 2037 Troponin T, 2 hr, 5th gen(!): 24 2037 2H Delta: -1 2037 INR: 2.1 2037 Prothrombin Time, P(!): 23.8 2037 Troponin T, Baseline, 5th gen(!): 25 2037 TSH, Sensitive: 1.2 2037 Hemoglobin(!): 13.1 2037 Leukocytes(!): 11.4 2037 Hemoglobin(!): 13.1 2037 Hematocrit: 40.1 2037 Estimated GFR (eGFR)(!): 44 2037 Creatinine(!): 1.56 2037 BUN (Blood Urea Nitrogen), P(!): 25 Final Diagnoses: as of 10/18/232037 Atrial Fibrillation Unspecified (HCC) 83-year-old male with a history of atrial fibrillation on anticoagulation and electrocardioversion 2 days ago presents with a evaluation of fatigue. He is received care at multiple clinics and hospitals throughout the [facility] has been dissatisfied. He presents today with atrial fibrillation we have offered him a stay in the observation unit as well as well as hospitalization which he is declined. We have started IV metoprolol with a slow him down he wishes to go home he understands risks benefits in his medical decision-making ability he will return for worsening of his symptoms. I have personally seen and examined this patient. I have fully participated in the care of this patient. I have reviewed all clinical information including history, physical exam, orders, and plan. Carrie with the note of the resident. Newton Garcia M.D. 10/19/23 0139 TIONAL ARCHITECT * Susan Garcia R.N. - 10/18/2023 3:53 PM CST Patient had a recent cardioversion done that was successful. Per the , they had a home health nurse that was doing an intake evaluation at their home to help them with his insulin. The nurse stated after feeling his pulse, that he was in sustained RVR, irregular in the rates of 125-135 per note from the home health nurse. Susan Garcia RKrishan. 10/18/23 1557 TIONAL ARCHITECT documented in this encounter Plan of Treatment Upcoming Encounters Date Type Department Care Team (Latest Contact Info) Description 01/29/2024 10:45 AM CDT Clinical Communication Virtual Review in [place], [place] [address] [place] [address] 02/05/2024 1:00 PM CDT Comprehensive Visit Department of Neurology in [address] [address] Arturo Barfield M.D. [address] [place] [phone] documented as of this encounter Procedures Procedure Name Priority Date/Time Associated Diagnosis Comments DX CHEST AP OR PA AND LATERAL 2 VIEWS RAD - Semiurgent (Fast; most ED patients; some inpatients) 10/18/2023 8:46 PM FUNCTIONAL ARCHITECT TROPONIN T, 2H/6H, 5TH GEN, P Timed 10/18/2023 5:13 PM FUNCTIONAL ARCHITECT TROPONIN T, BASELINE, 5TH GEN, P STAT 10/18/2023 3:27 PM FUNCTIONAL ARCHITECT NT-PRO B-TYPE NATRIURETIC PEPTIDE (BNP), S STAT 10/18/2023 3:27 PM FUNCTIONAL ARCHITECT PROTHROMBIN TIME (PT), P STAT 10/18/2023 3:27 PM FUNCTIONAL ARCHITECT CBC WITH DIFFERENTIAL, B STAT 10/18/2023 3:27 PM FUNCTIONAL ARCHITECT THYROID-STIMULATIN G HORMONE-SENSITIVE (S-TSH) STAT 10/18/2023 3:27 PM FUNCTIONAL ARCHITECT BASIC METABOLIC PANEL, S/P STAT 10/18/2023 3:27 PM FUNCTIONAL ARCHITECT ECG STAT 10/18/2023 3:17 PM FUNCTIONAL ARCHITECT documented in this encounter Results * DX Chest AP or PA and Lateral 2 Views (10/18/2023 8:46 PM FUNCTIONAL ARCHITECT) Anatomical Region Laterality Modality Chest, Thoracic RST LOS, Tho racic ARZ LOS, Thoracic FLA LOS N/A Digital Radiography Impressions 10/19/2023 9:45 AM FUNCTIONAL ARCHITECT Since chest CT from 09/12/2023, new small to moderate-sized left pleural effusion and tiny right effusion. Otherwise, allowing for differences in technique, no significant change. No focal consolidation or pneumothorax. Calcified granuloma in the right lung base in addition to a calcified right hilar lymph node. Aortic calcification. Enlargement of the cardiac silhouette. Narrative 10/19/2023 9:45 AM FUNCTIONAL ARCHITECT EXAM: ??DX CHEST AP OR PA AND LATERAL 2 VIEWS Procedure Note Jean Claude Piña M.D. - 10/19/2023 EXAM: DX CHEST AP OR PA AND LATERAL 2 VIEWS IMPRESSION: Since chest CT from 09/12/2023, new small to moderate-sized left pleuraleffusion and tiny right effusion. Otherwise, allowing for differences intechnique, no significant change. No focal consolidation or pneumothorax.Calcified granuloma in the right lung base in addition to a calcified right hilar lymph node.Aortic calcification. Enlargement of the cardiac silhouette. Newton Garcia M.D. IMG DIAGNOSTIC LEANNE GING PROCEDURES * (ABNORMAL) Troponin T, 2h/6h, 5th Gen (10/18/2023 5:13 PM FUNCTIONAL ARCHITECT) Troponin T, 2 hr, 5th gen 24(H) <=15 ng/L 10/18/2023 5:53 PM FUNCTIONAL ARCHITECT STMA 2H Delta -1 ng/L 10/18/2023 5:53 PM FUNCTIONAL ARCHITECT STMA 2H Delta Interp Not Changing 10/18/2023 5:53 PM FUNCTIONAL ARCHITECT STMA Troponin T, 6 hr, 5th gen CANCELED ng/L 10/18/2023 5:53 PM FUNCTIONAL ARCHITECT ST[facility] Comment:Result canceled by t he ancillary. 6H Delta CANCELED ng/L 10/18/2023 5:53 PM FUNCTIONAL ARCHITECT ST[facility] Comment:Result canceled by t he ancillary. 6H Delta % CANCELED % 10/18/2023 5:53 PM FUNCTIONAL ARCHITECT ST[facility] Comment:Result canceled by t he ancillary. Blood (Blood, Venous) 10/18/2023 5:13 PM FUNCTIONAL ARCHITECT 10/18/2023 5:28 PM FUNCTIONAL ARCHITECT Narrative [facility] - 10/18/2023 5:53 PM FUNCTIONAL ARCHITECT Specimen Information: Specimen ID: [id number] Specimen Type: Blood Specimen Collection Start Date: 10/18/2023 ??5:13 PM Specimen Received Date: 10/18/2023 ??5:28 PM Specimen ID: [id number] Specimen Type: Blood Specimen Collection Start Date: 10/18/2023 ??5:53 PM Specimen Received Date: 10/18/2023 ??5:53 PM Janice Pierce P.A.-C., M.S. LAB BLOOD [facility] [address] [facility] [address] [place], [place] [address] [address] [place] [address] * (ABNORMAL) NT-Pro B-Type Natriuretic Peptide (BNP) (10/18/2023 3:27 PM FUNCTIONAL ARCHITECT) Pathologist [facility] [place] NT-Pro BNP 1599(H) <=540 pg/mL 10/18/2023 4:20 PM FUNCTIONAL ARCHITECT [facility] Comment: NT-proBNP values less than 300 pg/mL [...] failure. Blood (Blood, Venous) 10/18/2023 3:27 PM FUNCTIONAL ARCHITECT 10/18/2023 3:32 PM FUNCTIONAL ARCHITECT Janice Pierce P.A.-C., M.S. LAB BLOOD ADD -ON Performing Organization Address City/State/[facility] Co de Phone Number [facility] [address] [place], [place] [phone] [place] [address] [address] [place] [address] * (ABNORMAL) Prothrombin Time (PT) (10/18/2023 3:27 PM FUNCTIONAL ARCHITECT) Pathologist [facility] Prothrombin Time, P 23.8(H) 9.4 - 12.5 sec 10/18/2023 4:00 PM FUNCTIONAL ARCHITECT DTL INR 2.1 0.9 - 1.1 10/18/2023 4:00 PM FUNCTIONAL ARCHITECT DTL Comment: ----ADDITIONAL INFORMATION---- Standard intensity warfarin therapeutic range: 2.0 to 3.0 ?? High intensity warfarin therapeutic range: 2.5 to 3.5 Blood (Blood, Venous) 10/18/2023 3:27 PM FUNCTIONAL ARCHITECT 10/18/2023 3:40 PM FUNCTIONAL ARCHITECT Janice Pierce P.A.-C., M.S. LAB BLOOD ADD -ON Performing Organization Address City/State/[facility] Co de Phone Number [facility] [address] [place], [place] [phone] [place] [address] [facility] [address] [place] [address] * (ABNORMAL) Troponin T, Baseline, 5th gen (10/18/2023 3:27 PM FUNCTIONAL ARCHITECT) Pathologist [facility] Troponin T, Baseline, 5th gen 25(H) <=15 ng/L 10/18/2023 4:17 PM FUNCTIONAL ARCHITECT [facility] Blood (Blood, Venous) 10/18/2023 3:27 PM FUNCTIONAL ARCHITECT 10/18/2023 3:32 PM FUNCTIONAL ARCHITECT Janice Pierce P.A.-C., M.S. LAB BLOOD TRO PONIN Performing Organization Address City/[facility]/ZIP Co de Phone Number [facility] [address] [place], [place] [phone] [place], [place] [address]A [facility] [address] [place] [address] * S-TSH (Thyroid-Stimulating Hormone - Sensitive) (10/18/2023 3:27 PM FUNCTIONAL ARCHITECT) Pathologist [facility] TSH, Sensitive 1.2 0.3 - 4.2 mIU/L 10/18/2023 4:16 PM FUNCTIONAL ARCHITECT DT Blood (Blood, Venous) 10/18/2023 3:27 PM FUNCTIONAL ARCHITECT 10/18/2023 3:51 PM FUNCTIONAL ARCHITECT Janice Pierce P.A.-C., M.S. LAB BLOOD ADD -ON Performing Organization Address City/[facility]/ZIP Co de Phone Number [facility] [address] [place] [address], [facility] [address] [place] [address] * (ABNORMAL) CBC with Differential, Blood (10/18/2023 3:27 PM FUNCTIONAL ARCHITECT) Pathologist [facility] Hemoglobin 13.1(L) 13.2 - 16.6 g/dL 10/18/2023 3:39 PM FUNCTIONAL ARCHITECT [facility] Hematocrit 40.1 38.3 - 48.6 % 10/18/2023 3:39 PM FUNCTIONAL ARCHITECT [facility] Erythrocytes 4.24(L) 4.35 - 5.65 x10(12)/L 10/18/2023 3:39 PM FUNCTIONAL ARCHITECT [facility] MCV 94.6 78.2 - 97.9 fL 10/18/2023 3:39 PM FUNCTIONAL ARCHITECT [facility] RBC Distrib Width 12.7 11.8 - 14.5 % 10/18/2023 3:39 PM FUNCTIONAL ARCHITECT [facility] Platelet Count 582(H) 135 - 317 x10(9)/L 10/18/2023 3:39 PM FUNCTIONAL ARCHITECT [facility] Leukocytes 11.4(H) 3.4 - 9.6 x10(9)/L 10/18/2023 3:39 PM FUNCTIONAL ARCHITECT [facility] Neutrophils 8.73(H) 1.56 - 6.45 x10(9)/L 10/18/2023 3:39 PM FUNCTIONAL ARCHITECT DH[facility] Lymphocytes 1.86 0.95 - 3.07 x10(9)/L 10/18/2023 3:39 PM FUNCTIONAL ARCHITECT [facility] Monocytes 0.67 0.26 - 0.81 x10(9)/L 10/18/2023 3:39 PM FUNCTIONAL ARCHITECT [facility] Eosinophils 0.06 0.03 - 0.48 x10(9)/L 10/18/2023 3:39 PM FUNCTIONAL ARCHITECT [facility] Basophils 0.07 0.01 - 0.08 x10(9)/L 10/18/2023 3:39 PM FUNCTIONAL ARCHITECT [facility] Blood (Blood, Venous) 10/18/2023 3:27 PM FUNCTIONAL ARCHITECT 10/18/2023 3:32 PM FUNCTIONAL ARCHITECT Janice Pierce P.A.-C., M.S. LAB BLOOD ADD -ON [facility] [address] [place] [address], [facility] STMA [facility] [address] [place] [address] [facility] [address] [place] [address] * (ABNORMAL) Basic Metabolic Panel (10/18/2023 3:27 PM FUNCTIONAL ARCHITECT) Potassium, P 4.1 3.6 - 5.2 mmol/L 10/18/2023 4:19 PM FUNCTIONAL ARCHITECT DTL Sodium, P 143 135 - 145 mmol/L 10/18/2023 4:19 PM FUNCTIONAL ARCHITECT DTL Chloride, P 103 98 - 107 mmol/L 10/18/2023 4:19 PM FUNCTIONAL ARCHITECT DTL Bicarbonate, P 25 22 - 29 mmol/L 10/18/2023 4:19 PM FUNCTIONAL ARCHITECT DTL Anion Gap, P 15 7 - 15 10/18/2023 4:19 PM FUNCTIONAL ARCHITECT DTL BUN (Blood Urea Nitrogen), P 25(H) 8 - 24 mg/dL 10/18/2023 4:19 PM FUNCTIONAL ARCHITECT DTL Creatinine 1.56(H) 0.74 - 1.35 mg/dL 10/18/2023 4:19 PM FUNCTIONAL ARCHITECT DTL Estimated GFR (eGFR) 44(L) >=60 mL/min/BSA 10/18/2023 4:19 PM FUNCTIONAL ARCHITECT DTL Comment: Estimated GFR calculated using the 2020 CKD_EPI creatinine equation. Calcium, Total, P 9.6 8.8 - 10.2 mg/dL 10/18/2023 4:19 PM FUNCTIONAL ARCHITECT DTL Glucose, P 190(H) 70 - 140 mg/dL 10/18/2023 4:19 PM FUNCTIONAL ARCHITECT DTL Blood (Blood, Venous) 10/18/2023 3:27 PM FUNCTIONAL ARCHITECT 10/18/2023 3:32 PM FUNCTIONAL ARCHITECT Janice Pierce P.A.-C., M.S. LAB BLOOD ADD -ON [facility] [address] [place] [address], [facility] [address] [place] [address] * ECG 12 Lead (10/18/2023 3:17 PM FUNCTIONAL ARCHITECT) Pathologist [facility] [place] Ventricular Rate ECG/Min 134 BPM MUSE QRSD Interval 78 ms MUSE QT Interval 274 ms MUSE QTC Interval 409 ms MUSE R [place] -22 degrees MUSE T Wave [place] 155 degrees MUSE 10/18/2023 3:17 PM FUNCTIONAL ARCHITECT 10/18/2023 3:21 PM FUNCTIONAL ARCHITECT Impressions MUSE - 10/18/2023 3:21 PM FUNCTIONAL ARCHITECT Atrial fibrillation with rapid ventricular response with [...] Newton Garcia M.D. ECG ORDERABLES MUSE NA documented in this encounter Visit Diagnoses Diagnosis Atrial Fibrillation Unspecified (HCC)- Primary documented in this encounter Administered Medications Inactive Administered Medications - up to 3 most recent administrations Medication Order MAR Action Action Date Dose Rate Site metoprolol injection 5 mg (LOPRESSOR) 5 mg, intravenous, Once, On Sat10/18/23 at 2242, For 1 dose Given 10/18/2023 11:09 PM FUNCTIONAL ARCHITECT 5 mg NaCl 0.9 % bolus 1,000 mL 1,000 mL, intravenous, at 1,000 mL/hr, Administer over 1 Hours, Once, On Sat10/18/23 at 2014, For 1 dose New Bag 10/18/2023 8:34 PM FUNCTIONAL ARCHITECT 1,000 mL 100 0 mL/hr documented in this encounter Active and Recently Administered Medications Times are shown in FUNCTIONAL ARCHITECT. Scheduled Medication Order 10/16/2023 10/17/2023 10/18/2023 metoprolol injection 5 mg (LOPRESSOR) (COMPLETED) 5 mg, intravenous, Once, On Sat10/18/23 at 2242, For 1 dose 2308 (Given - Provid er: Soledad Pro R.N.) NaCl 0.9 % bolus 1,000 mL (COMPLETED) 1,000 mL, intravenous, at 1,000 mL/hr, Administer over 1 Hours, Once, On Sat10/18/23 at 2013, For 1 dose 2033 (New Bag - Prov ider: Manuela Varela RCuongN.)2221 (Stopped - Provider: Florian Heath R.N.) documented in this encounter Additional Health Concerns Assessment Noted Time PHQ-9 Depression Total Score: 1 07/16/20 13 2:30 PM FUNCTIONAL ARCHITECT documented as of this encounter Care Teams Pilot Captain Relationship Specialty Start Date End Date Elsewhere, Pcp PCP - General Internal Medicine 10/07/23 documented as of this encounter
--- OUTSIDE RECORDS SUMMARY | 2024-01-08 07:19 | XMS_ITS | Clinical Summary ---
Author Name Unknown Organization [facility] Address [address], [place] [address] Care Team Providers Care Bpo Specialist Name Role Phone Unassigned, Provider Primary Care Provider Unava ilable Source Comments You are receiving this document as you are listed as the primary care provider,follow-up provider, or the patient has been referred to you for consultation.This is in compliance with the Medicare and[facility] EHR Incentive Program,which states Providers who transition their patient to another setting of careor provider of care or refers their patient to another provider of care shouldprovide summary care record for each transition of care or referral. [facility] Allergies No known active allergies Medications Medication Sig Dispensed Refills Start Date End Date Status BISOPROLOL-HCTZ (ZIAC) 5-6.25 MG tablet Take 1 tablet by mouth daily (every 24 hours). LW Addl Instr:Indicated for: High Blood Pressure 90 3 01/16/2010 Active multivitamin with minerals (CENTRUM) tablet Indications: PN: 01/16/2010 Active unknown medication Indications: PN: 01/16/2010 Active mupirocin (BACTROBAN) 2 % ointmentIndications: Melanoma in situ of scalp (HRC) Apply on wound once or twice daily. 22 g 3 02/11/2019 Active oxyCODONE-acetaminop hen (PERCOCET) 5-325 MG tabletIndications:Me lanoma in situ of scalp (HRC) Take 1-2 Tablets by mouth every 4 hours as needed. 10 Tablet 02/11/2019 Active Active Problems Problem Noted Date [...] Medicare Annual Wellness Visit 1940 COVID-19 Vaccine (3 - 2022-24 season) 2023 11/17/2020, 10/27/2020 Influenza (Season Ended) 2024 019, 05/28/2018, 05/08/2017 DTaP/Tdap/Td (3 - Tdap) 01/01/2030 01/02/2020, 11/30 HepA Aged Out 09/03/2012 No longer eligi ble based on patient's age to complete this topic Pneumococcal 65+ Yrs Completed 05/16/2017, 09/17/2009, 07/03/2009 Zoster/Shingles Completed 10/20/2018, 0209/2018, 08/18/2018, Additional history exists HepB Aged Out [...] age to complete this topic Care Teams Bpo Specialist Relationship Specialty Start Date End Date Unassigned, Provider [address] [place] [address] PCP - General 11/03/00
--- OUTSIDE RECORDS SUMMARY | 2024-01-08 07:19 | XMS_ITS | Encounter Summary ---
Author Name Unknown Organization [facility] Address [address] [place] [address] Care Team Providers Care Instrument Technician Apprentice Name Role Phone Elsewhere, Pcp Primary Care Provider Unavailabl e Reason for Visit * Reason Onset Date Comments OSM - Outside Materials 10/07/2023 OSM 10/07/2023 CVD Encounter Details Date Type Department Care Team (Latest Contact Info) Description 10/07/2023 Clinical Communication Department of Cardiovascular Medicine in [place], [place] [address] [place] [address] Provider, Unknown OSM - Outside Materials; OSM (CVD ) Social History Tobacco Use Types Packs/Day [...] often do you attend chur ch or baptist services? More than 4 times per year 01/11/2020 Do you belong to any clubs o r organizations such as restorationism groups, unions, fraternal or athletic groups, or [...] and heating? Not hard at all 01/11/2020 [facility] - [...] AM CDT Clinical Communication Virtual Review in [place], [place] [address] [place] [address] 02/05/2024 1:00 PM CDT Comprehensive Visit Department of Neurology in [place], [place] [address] [place] [phone] Arturo Barfield M.D. [address] [place] [phone] documented as of this encounter Visit Diagnoses Not on filedocumented in this encounter Additional Health Concerns Assessment Noted Time PHQ-9 Depression Total Score: 1 07/16/20 13 2:30 PM TOOL MAKER documented as of this encounter Care Teams Instrument Technician Apprentice Relationship Specialty Start Date End Date Elsewhere, Pcp PCP - General Internal Medicine 10/07/23 documented as of this encounter
== END 2024-01-06 09:17 | disposition home or self-care (01) ==
LOC: NFLDREF 01-08 07:12
PROVIDERS: PCP Family Medicine; Referring Provider Family Medicine; Visit Provider Family Medicine
DX: E13.9 Other specified diabetes mellitus without complications (principal); I10 Essential (primary) hypertension; E78.00 Pure hypercholesterolemia, unspecified; Z79.4 Long term (current) use of insulin; Z13.29 Encounter for screening for other suspected endocrine disorder
CPT/HCPCS: 80048; 80076; 84443

== ENCOUNTER 2024-01-13 09:45 | Outpatient (CLI) | payer MEDICARE, BC, SELFPAY ==
--- OUTSIDE RECORDS SUMMARY | 2024-01-13 09:48 | XMS_ITS | Clinical Summary ---
Author Name Unknown Organization [facility] Address [address] [place] [address] Care Team Providers Care Junior Mechanical Engineer Name Role Phone Shaneka Patel MD Unavailable Shaneka Patel MD Unavailable Shaneka Patel MD Unavailable Merrill Mejia MD Primary Care Provider [phone] Allergies Active Allergy Reactions Criticality Noted Date [...] diabetic neuropathy, unspecified (H) 10/30/2023 Medical Correspondence [facility] [address] [place] [phone] Scan, Non-Provider 10/16/2023 11:59 PM WASTE PICKER Anesthesia Event [facility] [address] [phone] Jez Su MD 10/16/2023 8:27 AM WASTE PICKER Anesthesia Event [facility] [address] [place] [address] Jez Su MD 10/16/2023 8:20 AM WASTE PICKER - 10/16/2023 8:35 AM WASTE PICKER Surgery [facility] [address] [place] [address] Carter Ellis MD Anesthesia cardioversion 10/15/2023 10:30 AM WASTE PICKER - 10/15/2023 10:45 AM WASTE PICKER Surgery [facility] [address] [place] [address] GENERIC ANESTHESIA PROVIDER cardioversion 10/14/2023 12:37 PM WASTE PICKER - 10/16/2023 4:33 PM WASTE PICKER Hospital Encounter [facility] [address] [facility] [place] [phone] Ilan Alves MD Nistor, Doina Simona, MD Type 2 diabetes mellitus with stage 3b chronic kidney disease, with long-term current use of insulin (H) (Primary Dx); Hypoglycemia; Community acquired pneumonia, unspecified laterality; Episode of confusion; Chest pain, unspecified type; Weakness; History of atrial fibrillation; Calcification of coronary artery Discharge Disposition: Home-Health Care c from Last 3 Months Immunizations Name Administration [...] Sex Assigned at Male 09/28/2023 2:19 PM WASTE PICKER Gender Identity Male 09/28/2023 2:19 PM WASTE PICKER Sexual Orientation Straight 09/28/2023 2: 19 PM WASTE PICKER Last Filed Vital Signs Vital Sign Reading Time Taken Comments Blood Pressure 118/73 10/16/2023 10:04 AM WASTE PICKER Pulse 87 10/16/2023 10:04 AM WASTE PICKER Temperature 36.3 ??C (97.4 ??F) 10/16/2023 1 0:04 AM WASTE PICKER Respiratory Rate 18 10/16/2023 10:0 4 AM WASTE PICKER Oxygen Saturation 98% 10/16/2023 10: 04 AM WASTE PICKER Inhaled Oxygen Concentration - - Weight 95.7 kg (210 lb 14.4 oz) 10/16/2023 3:58 AM WASTE PICKER Height 185.4 cm (6' 1) 10/14/2023 5:59 PM WASTE PICKER Body Mass Index 27.82 10/14/2023 5:59 PM WASTE PICKER Plan of Treatment Upcoming Encounters Date Type Department Care Team (Late st Contact Info) Description 05/14/2024 12:30 PM CDT Office Visit [facility] [address] [place] [address] Gail Post MD [address] [address] Anushka Carrasquillo MD [address] [facility] [address] [place] [address] Health Maintenance Due Date Last Done Comments ADVANCE CARE PLANNING 1940 ANNUAL REVIEW OF HM ORDERS 1940 DIABETIC FOOT EXAM 1940 EYE EXAM 1940 MICROALBUMIN 1940 RSV VACCINE ( & 60+) (1 - 1-dose 60+ series) 2000 FALL RISK ASSESSMENT 01/29/2005 MEDICARE ANNUAL WELLNESS VISIT 01/29/2005 PHQ-2 (once per calendar year) 2023 COVID-19 Vaccine ( season) 2023 06/12/2023, 01/20/2022, 05/30/2021, Additional history [...] AND PROVIDER INTERPRETATION Routine 10/16/2023 7:05 PM WASTE PICKER GLUCOSE BY METER Routine 10/16/2023 12:0 6 PM WASTE PICKER HEPATITIS A ANTIBODY IGM Routine 10/16/2023 10:22 AM WASTE PICKER EKG 12-LEAD, TRACING ONLY Routine 10/16/2023 10:04 AM WASTE PICKER US ABDOMEN LIMITED Routine 10/16/2023 9: 36 AM WASTE PICKER CARDIOVERSION EXTERNAL Routine 8:35 AM WASTE PICKER ANESTHESIA, FOR CARDIOVERSION 10/16/2023 8:20 AM WASTE PICKER Chronic atrial fibrillation (H) GLUCOSE BY METER Routine 10/16/2023 7:29 AM WASTE PICKER EKG 12-LEAD, TRACING ONLY STAT 10/16/2023 7:11 AM WASTE PICKER HEPATITIS C ANTIBODY Add-On 10/16/2023 6:08 AM WASTE PICKER HEPATITIS B SURFACE ANTIGEN Add-On 10/16/2023 6:08 AM WASTE PICKER MAGNESIUM STAT 10/16/2023 6:08 AM WASTE PICKER INR STAT 10/16/2023 6:08 AM WASTE PICKER COMPREHENSIVE METABOLIC PANEL STAT 10/16/2023 6:08 AM WASTE PICKER CBC WITH PLATELETS Routine 10/16/2023 6: 08 AM WASTE PICKER GLUCOSE BY METER Routine 10/16/2023 1:10 AM WASTE PICKER GLUCOSE BY METER Routine 10/15/2023 9:26 PM WASTE PICKER GLUCOSE BY METER Routine 10/15/2023 5:29 PM WASTE PICKER GLUCOSE BY METER Routine 10/15/2023 12:0 1 PM WASTE PICKER XR CHEST 2 VIEWS Routine 10/15/2023 8:09 AM WASTE PICKER GLUCOSE BY METER Routine 10/15/2023 7:39 AM WASTE PICKER LIPID REFLEX TO DIRECT LDL PANEL Routine 10/15/2023 7:15 AM WASTE PICKER TROPONIN T, HIGH SENSITIVITY Routine 10/15/2023 7:15 AM WASTE PICKER CBC WITH PLATELETS Routine 10/15/2023 7: 15 AM WASTE PICKER COMPREHENSIVE METABOLIC PANEL Routine 10/15/2023 7:15 AM WASTE PICKER GLUCOSE BY METER Routine 10/15/2023 2:13 AM WASTE PICKER HEMOGLOBIN A1C Add-On 10/14/2023 12:53 PM WASTE PICKER from Last 3 Months or Most Recently Relevant to Health Maintenance Results * HOLTER MONITOR 48 HOUR APPLICATION SCAN ANALYSIS AND PROVIDER INTERPRETATION (10/16/2023 7:05 PM WASTE PICKER) Anatomical Region Laterality Modality Other 10/16/2023 4:17 PM WASTE PICKER 10/21/2023 6:00 PM WASTE PICKER Narrative 10/21/2023 6:00 PM WASTE PICKER Kamron De León was monitored for 48 hours. Quality of the tracing was good. Predominant rhythm was Atrial fibrillation ??(61% of the recording). Average HR was 112 bpm, maximum HR was 163 bpm at 12:42 PM (Day 1), minimum HR was 74 bpm at 6:18 AM ??(Day 1). [place] interval measured 0.17 seconds, QRS duration 0.09 seconds, QT interval 0.297-0.336 seconds. There were zero pauses over 2.0 seconds. 2. There were 7,774 ventricular ectopic beats (3% [place]), 7,187 of these were isolated PVCs. There were 269 couplets and 15 ??triplets. There was one 4 beat ventricular run with a rate of 176 bpm at 6:15 PM (Day 2). 3. There were 8,313 supraventricular ectopic beats (3% [place]), 6,963 of these were isolated PACs. There [...] were noted. 10/19/2023 Confirmed by SHANEKA PATEL ([id number]) on 10/21/2023 6:00:23 PM Procedure Note Shaneka Patel MD - 10/21/2023 1. Ilan De León was monitored for 48 hours. Quality of the tracingwas good. Predominant rhythm was Atrial fibrillation (61% of therecording). Average HR was 112 bpm, maximum HR was 163 bpm at 12:42 PM (Day 1),minimum HR was 74 bpm at 6:18 AM (Day 1). [place] interval measured 0.17seconds, QRS duration 0.09 seconds, QT interval 0.297-0.336 seconds. There were zero pauses over 2.0 seconds. 2. There were 7,774 ventricular ectopic beats (3% [place]), 7,187 of thesewere isolated PVCs. There were 269 couplets and 15 triplets. There wasone 4 beat ventricular run with a rate of 176 bpm at 6:15 PM (Day 2). 3. There were 8,313 supraventricular ectopic beats (3% [place]), 6,963 ofthese were isolated PACs. There were [...] were noted. 10/19/2023 Confirmed by SHANEKA PATEL ([id number]) on 10/21/2023 6:00:23 PM Merlyn Lyon [facility] CARDIAC [facility] ORDERABLES * (ABNORMAL) Glucose by meter (10/16/2023 12:06 PM WASTE PICKER) Only the most recent of8 resultswithin the time period is included. GLUCOSE BY METER POCT 154(H) 70 - 99 mg/dL 10/16/2023 12:16 PM WASTE PICKER LABORATORY POC Blood, Capillary BLOOD SPECIMEN / Unknown 10/16/2023 12:06 PM WASTE PICKER 10/16/2023 12:16 PM WASTE PICKER Michelle Eckert MD LAB - BEAKER POCT LABORATORY POC [facility] [address], [address] [place] [address], [facility] [phone] * Hepatitis A antibody IgM (10/16/2023 10:22 AM WASTE PICKER) Pathologist [facility] Hepatitis A Antibody IgM Nonreactive Nonreactive 10/16/2023 3:37 PM WASTE PICKER LABORATORY Comment:Nonreactive results indicate either inadequate or delayed anti-HAV IgM response after known exposure to HAV or absence of acute or recent hepatitis A. Blood STRUCTURE OF RIGHT UPPER LIMB / Unknown Venipuncture / Unknown 10/16/2023 10:22 AM WASTE PICKER 10/16/2023 10:27 AM WASTE PICKER Gail Post MD LAB - BLOOD ORDERABL ES LABORATORY [facility] [address], [address] [place] [address], [place] [phone] * EKG 12-lead, tracing only (10/16/2023 10:04 AM WASTE PICKER) Only the most recent of2 resultswithin the time period is included. Systolic Blood Pressure mmHg RADIOLOGY RESULTS Diastolic Blood Pressure mmHg RADIOLOGY RESULTS Ventricular Rate 91 BPM RAD IOLOGY RESULTS Atrial Rate 91 BPM RADIOLOG Y RESULTS [place] Interval 182 ms RADIOLOG Y RESULTS QRS Duration 80 ms RADIOLO GY RESULTS QT 330 ms RADIOLOGY RESULTS QTc 405 ms RADIOLOGY RESULTS P [place] 74 degrees RADIOLOGY RESULTS R AXIS 19 degrees RADIOLOGY RESULTS T Jenners 213 degrees RADIOLOGY RESULTS Interpretation ECG Sinus rhythm with occasional Premature ventricular complexes and Premature atrial complexes Cannot rule out Anterior infarct , age undetermined Abnormal ECG When compared with ECG of 16-OCT-2023 07:11, (unconfirmed) Sinus rhythm has replaced Atrial fibrillation Confirmed by MD ISAAC, JULIEN ([id number]), editor producer Cole Pool ([id number]) on 10/18/2023 7:58:52 AM RADIOLOGY RESULTS 10/16/2023 10:0 4 AM WASTE PICKER 10/18/2023 7:58 AM WASTE PICKER Carter Ellis MD ECG ORDERABLES RADIOLOGY RESULTS * US Abdomen Limited (10/16/2023 9:36 AM WASTE PICKER) Anatomical Region Laterality Modality Abdomen/Pelvis Ultrasound Impressions 10/16/2023 10:25 AM WASTE PICKER IMPRESSION: 1. ??Hepatic steatosis, similar to previous. TRAVON HARRIS MD Narrative 10/16/2023 10:25 AM WASTE PICKER US ABDOMEN LIMITED 10/16/2023 9:36 AM CLINICAL [...] ORDERABLES * CARDIOVERSION EXTERNAL (10/16/2023 8:35 AM WASTE PICKER) Anatomical Region Laterality Modality Other Narrative 10/16/2023 8:35 AM WASTE PICKER Carter Ellis MD ? 10/16/2023 ??9:[address] [facility] Procedure: EP Cardioversion External Date/Time: 10/16/2023 [...] procedure a time out was called ?? [place] Protocol: the Joint Commission [place] Protocol was followed ?? Preparation: Patient was [...] ORDERABLES * (ABNORMAL) INR (10/16/2023 6:08 AM WASTE PICKER) INR 3.26(H) 0.85 - 1.15 10/16/2023 6:45 AM WASTE PICKER LABORATORY Blood STRUCTURE OF RIGHT HAND / Unknown Venipuncture / Unknown 10/16/2023 6:08 AM WASTE PICKER 10/16/2023 6:16 AM WASTE PICKER Merlyn Lyon CNP LAB - BLOOD ORDERAB LES LABORATORY [facility] [address], [address] [place] [address], [facility] [phone] * Magnesium (10/16/2023 6:08 AM WASTE PICKER) Magnesium 1.9 1.7 - 2.3 mg/dL 10/16/2023 6:42 AM WASTE PICKER LABORATORY Blood STRUCTURE OF RIGHT HAND / Unknown Venipuncture / Unknown 10/16/2023 6:08 AM WASTE PICKER 10/16/2023 6:16 AM WASTE PICKER Merlyn Lyon CNP LAB - BLOOD ORDERAB LES Performing Organization Address City/[facility]/ZIP Co de Phone Number LABORATORY [facility] [address], [address] [place] [address], [facility] [phone] * Hepatitis C antibody (10/16/2023 6:08 AM WASTE PICKER) Hepatitis C Antibody Nonreactive Nonreactive 10/16/2023 3:31 PM WASTE PICKER LABORATORY Comment:A nonreactive screen ing test result [...] Unknown Venipuncture / Unknown 10/16/2023 6:08 AM WASTE PICKER 10/16/2023 6:16 AM WASTE PICKER Gail Post MD LAB - BLOOD ORDERABL ES LABORATORY [facility] [address], [address] [place] [address] [phone] * Hepatitis B surface antigen (10/16/2023 6:08 AM WASTE PICKER) Pathologist [facility] Hepatitis B Surface Antigen Nonreactive Nonreactive 10/16/2023 3:31 PM WASTE PICKER U LABORATORY Blood STRUCTURE OF RIGHT HAND / Unknown Venipuncture / Unknown 10/16/2023 6:08 AM WASTE PICKER 10/16/2023 6:16 AM WASTE PICKER Gail Post MD LAB - BLOOD ORDERABL ES U LABORATORY [facility] [address], [address] [place] [address] [phone] * (ABNORMAL) Comprehensive metabolic panel (10/16/2023 6:08 AM WASTE PICKER) Only the most recent of2 resultswithin the time period is included. Pathologist [facility] Sodium 141 135 - 145 mmol/L 10/16/2023 6:42 AM [facility] Comment:Reference intervals for this test were updated on 05/28/2023 to more accurately reflect our healthy population. There may be differences in the flagging of prior results with similar values performed with this method. Interpretation of those prior results can be made in the context of the updated reference intervals. Potassium 3.9 3.4 - 5.3 mmol/L 10/16/2023 6:42 AM [facility] Carbon Dioxide (CO2) 27 22 - 29 mmol/L 10/16/2023 6:42 AM [facility] Anion Gap 11 7 - 15 mmol/L 10/16/2023 6:42 AM [facility] Urea Nitrogen 27.2(H) 8.0 - 23.0 mg/dL 10/16/2023 6:42 AM [facility] Creatinine 1.38(H) 0.67 - 1.17 mg/dL 10/16/2023 6:42 AM [facility] GFR Estimate 51(L) >60 mL/min/1. 73m2 10/16/2023 6:42 AM [facility] Calcium 9.1 8.8 - 10.2 mg/dL 10/16/2023 6:42 AM [facility] Chloride 103 98 - 107 mmol/L 10/16/2023 6:42 AM [facility] Glucose 135(H) 70 - 99 mg/dL 10/16/2023 6:42 AM [facility] Alkaline Phosphatase 107 40 - 150 U/L 10/16/2023 6:42 AM [facility] Comment:Reference intervals for this test were updated on 07/16/2023 to more accurately reflect our healthy population. There may be differences in the flagging of prior results with similar values performed with this method. Interpretation of those prior results can be made in the context of the updated reference intervals. AST 193(H) 0 - 45 U/L 10/16/2023 6:42 AM [facility] Comment:Reference intervals for this test were updated on 02/11/2023 to more accurately reflect our healthy population. There may be differences in the flagging of prior results with similar values performed with this method. Interpretation of those prior results can be made in the context of the updated reference intervals. ALT 240(H) 0 - 70 U/L 10/16/2023 6:42 AM [facility] Comment:Reference intervals for this test were updated on 02/11/2023 to more accurately reflect our healthy population. There may be differences in the flagging of prior results with similar values performed with this method. Interpretation of those prior results can be made in the context of the updated reference intervals. Protein Total 6.4 6.4 - 8.3 g/dL 10/16/2023 6:42 AM [facility] Albumin 2.9(L) 3.5 - 5.2 g/dL 10/16/2023 6:42 AM [facility] Bilirubin Total 0.3 <=1.2 mg/dL 10/16/2023 6:42 AM [facility] Blood STRUCTURE OF RIGHT HAND / Unknown Venipuncture / Unknown 10/16/2023 6:08 AM WASTE PICKER 10/16/2023 6:16 AM [facility] Bacilio Steele MD LAB - BLOOD OR DERABLES LABORATORY [facility] Lab [address], [address] [place] [address], [facility] [phone] * (ABNORMAL) CBC with platelets (10/16/2023 6:08 AM [facility]) Only the most recent of2 resultswithin the time period is included. WBC Count 10.7 4.0 - 11.0 10e3/uL 10/16/2023 6:22 AM [facility] RBC Count 4.08(L) 4.40 - 5.90 10e6/uL 10/16/2023 6:22 AM [facility] Hemoglobin 12.6(L) 13.3 - 17.7 g/dL 10/16/2023 6:22 AM [facility] Hematocrit 38.5(L) 40.0 - 53.0 % 10/16/2023 6:22 AM [facility] MCV 94 78 - 100 fL 10/16/2023 6:22 AM [facility] MCH 30.9 26.5 - 33.0 pg 10/16/2023 6:22 AM [facility] MCHC 32.7 31.5 - 36.5 g/dL 10/16/2023 6:22 AM [facility] RDW 12.8 10.0 - 15.0 % 10/16/2023 6:22 AM [facility] Platelet Count 493(H) 150 - 450 10e3/uL 10/16/2023 6:22 AM [facility] Blood STRUCTURE OF RIGHT HAND / Unknown Venipuncture / Unknown 10/16/2023 6:08 AM WASTE PICKER 10/16/2023 6:16 AM [facility] Bacilio Steele MD LAB - BLOOD OR DERABLES LABORATORY [facility] Lab [address], [address] [place] [address], [facility] [phone] * XR Chest 2 Views (10/15/2023 8:09 AM WASTE PICKER) Anatomical Region Laterality Modality Chest Digital Radiogra phy Impressions 10/15/2023 9:13 AM WASTE PICKER IMPRESSION: Stable cardiac silhouette which is partially obscured. Similar opacification of the left lung base which is favored secondary to a moderate-sized left pleural effusion with underlying consolidation not excluded. Similar calcified granuloma of the right lung base. No discernible pneumothorax. No acute displaced fracture. PRECIOUS YOON MD Narrative 10/15/2023 9:13 AM WASTE PICKER CHEST TWO VIEWS 10/15/2023 8:09 AM HISTORY: [...] fracture. PRECIOUS YOON MD Dulce Fisher PA-C IM DIAGNOS TIC IMAGING ORDERABLES * (ABNORMAL) Troponin T, High Sensitivity (10/15/2023 7:15 AM WASTE PICKER) Pathologist [facility] Troponin T, High Sensitivity 30(H) <=22 ng/L 10/15/2023 8:11 AM WASTE PICKER LABORATORY Comment: Either a High Sensitivity Troponin [...] Unknown Venipuncture / Unknown 10/15/2023 7:15 AM WASTE PICKER 10/15/2023 7:39 AM WASTE PICKER Dulce Fisher PA-C LAB - BLOOD ORDERABLES LABORATORY [facility] Lab [address], [address] [place] [address], [facility] [phone] * (ABNORMAL) Lipid panel reflex to direct LDL (10/15/2023 7:15 AM WASTE PICKER) Cholesterol 66 <200 mg/dL 10/15/2023 11:29 AM WASTE PICKER [facility] Triglycerides 65 <150 mg/dL 10/15/2023 11:29 AM WASTE PICKER [facility] Direct Measure HDL 26(L) >=40 mg/dL 2023 11:29 AM WASTE PICKER [facility] LDL Cholesterol Calculated 27 <=100 mg/dL 10/15/2023 11:29 AM WASTE PICKER [facility] Non HDL Cholesterol 40 <130 mg/dL 10/15/2023 11:29 AM WASTE PICKER [facility] Patient Fasting > 8hrs? Yes 10/15/2023 11:29 AM WASTE PICKER LABORATORY Blood STRUCTURE OF RIGHT UPPER LIMB / Unknown Venipuncture / Unknown 10/15/2023 7:15 AM WASTE PICKER 10/15/2023 7:39 AM WASTE PICKER Narrative [facility] - 10/15/2023 11:29 AM WASTE PICKER Cholesterol Desirable: ??<200 mg/dL Triglycerides Normal: ??Less [...] PA-C LAB - BLOOD ORDERABLES [facility]AT[facility] [address] [facility] [address], [address] [place] [address], [place] [phone] [facility] [address], [address] [place] [address], [facility] [phone] * (ABNORMAL) Hemoglobin A1c (10/14/2023 12:53 PM WASTE PICKER) Hemoglobin A1C 8.4(H) <5.7 % 10/14/2023 4:04 PM WASTE PICKER LABORATORY Comment: Normal <5.7% Prediabetes 5.7-6.4% ?? Diabetes 6.5% or higher Note: Adopted from ADA consensus guidelines. Blood STRUCTURE OF LEFT UPPER LIMB / Unknown Venipuncture / Unknown 10/14/2023 12:53 PM WASTE PICKER 10/14/2023 12:57 PM WASTE PICKER Dulce Fisher PA-C LAB - BLOOD ORDERABLES LABORATORY [facility] [address], [address] [place] [address], [facility] [phone] from Last 3 Months or Most Recently Relevant to Health Maintenance Advance Directives For more information, please contact: [phone] * Full Code (Latest Code Status on File) Date Activated Date Inactivated Comments 10/14/2023 5:28 PM 10/16/2023 6:33 PM All basic an d advanced life-sustaining interventions are performed as appropriate Question Answer Comments Code status determined by: Discussion with raheem puente/ legal decision maker * Full Code Date Activated Date Inactivated Comments 08/26/2015 8:28 AM 07/21/2019 11:52 AM * DNR/DNI Date Activated Date Inactivated Comments 08/23/2015 6:11 PM 08/26/2015 8:28 AM Care Teams Junior Mechanical Engineer Relationship Specialty Start Date End Date Merrill Mejia MD [address] [place] [id number] PCP - General Family Medicine 10/25/23 Shaneka Patel MD [address] [place] [id number] Cardiovascular Disease 09/16/23 Shaneka Patel MD [address] [place] [address] Cardiovascular Disease 09/16/23 Shaneka Patel MD [address] [place] [address] Assigned Heart and Vascular Provider 09/26/23
--- OUTSIDE RECORDS SUMMARY | 2024-01-13 09:49 | XMS_ITS | Encounter Summary ---
Author Name Unknown Organization [facility] Address [facility] [place] [address] Care Team Providers Care Quilt Sewer Name Role Phone Nicanor Patel MD Unavailable Nicanor Patel MD Unavailable Nicanor Patel MD Unavailable Merrill Mejia MD Primary Care Provider [phone] Reason for Visit * Reason Comments Irregular [...] laterality Episode of confusion Short Stay [address] [place] [address] Referral ID Status Reason Start Date Expiration Date Visits Re quested Visits Authorized [id number] 1 1 Encounter Details Date Type Department Care Team (Late st Contact Info) Description 10/16/2023 8:20 AM EQUESTRIAN TRAINER - 10/16/2023 8:35 AM EQUESTRIAN TRAINER [facility] [address] [facility], [address] [place] [address] Carter Ellis MD REHABILITATION MEDICINE PHYS [address] [facility] [address] [place] [address] Anesthesia cardioversion Surgery Details Date/Time Status Location [...] Sex Assigned at Male 09/28/2023 2:19 PM EQUESTRIAN TRAINER Gender Identity Male 09/28/2023 2:19 PM EQUESTRIAN TRAINER Sexual Orientation Straight 09/28/2023 2: 19 PM EQUESTRIAN TRAINER documented as of this encounter Last Filed Vital Signs Vital Sign Reading Time Taken Comments Blood Pressure 96/65 10/16/2023 8:35 AM EQUESTRIAN TRAINER Pulse 81 10/16/2023 8:35 AM EQUESTRIAN TRAINER Temperature 36.4 ??C (97.6 ??F) 10/16/2023 7:22 AM CS T Respiratory Rate 22 10/16/2023 8:35 AM EQUESTRIAN TRAINER Oxygen Saturation 96% 10/16/2023 8:35 AM EQUESTRIAN TRAINER Inhaled Oxygen Concentration - - Weight 95.7 kg (210 lb 14.4 oz) 10/16/2023 3:58 AM EQUESTRIAN TRAINER Height 185.4 cm (6' 1) 10/14/2023 5:59 PM EQUESTRIAN TRAINER Body Mass Index 27.82 10/14/2023 5:59 PM EQUESTRIAN TRAINER documented in this encounter Discharge Summaries * Gail Post MD - 10/16/2023 1:05 PM CST Images from the original note were not included. [facility] Discharge Summary Hospitalist Date of [...] below, scheduled for outpatient cardioversion 10/15. Continue FILM LIBRARIAN medications which include Xarelto, losartan and metoprolol. [...] manage insulin with frequent episodes of hypoglycemia. *FILM LIBRARIAN Regimen: Takes insulin Glargine 80-90 units at bed time, despite PCP recommendation that he takes 50 units. Last HbA1c 8.7% patient was on hypoglycemia protocol, was continued insulin here, metformin is on hold, continued on CHO diet there is concern whether he can manage his insulin, will arrange outpatient endocrine follow-up. Coronary artery disease Benign essential hypertension FILM LIBRARIAN Regimen: Atenolol, losartan, xarelto and rosuvastatin EKG: Atrial fibrillation with rapid ventricular response with left axis deviation Possible Anterior infarct , age undetermined. Last ECHO: 10/01/23 EF 60-65%. Last stress test: 08/21/23 Negative for inducible myocardial ischemia or infarction. Follows with cardiology at [facility] Dr. Patel. Continue FILM LIBRARIAN losartan, atenolol stopped. His FILM LIBRARIAN statin is on hold, continue holding that [...] triglycerides 65, LDL 27, HDL 26. - FILM LIBRARIAN rosuvastatin on hold, consider restarting at a [...] appears clear. ELO DIETRICH MD SYSTEM ID: [id number] XR Chest 2 Views Narrative CHEST TWO [...] Narrative Carter Ellis MD 10/16/2023 9:05 AM [facility] Procedure: EP [...] the procedure a time out was called [place] Protocol: the Joint Commission [place] Protocol was followed Preparation: Patient was prepped [...] without bradycardia or pauses. No apparent complications. STRIAN TRAINER documented in this encounter Medications at Time [...] has all belongings. 48hr monitor in place. STRIAN TRAINER * Sarah Sheth PT - 10/16/2023 12:23 [...] Commands (Cognition) WFL;delayed response/completion;increased processing time needed ([place]) Pain Assessment Patient Currently in Pain No [...] Evaluation Time PT Eval, Low Complexity Minutes (83018) 12 Physical Therapy Goals PT Frequency One time eval and treatment only PT Predicted Duration/Target Date for Goal Attainment 10/16/23 PT Goals Transfers;Gait;Stairs PT: Transfers Modified independent;Sit to/from stand PT: Gait Supervision/stand-by assist;150 feet PT: Stairs Supervision/stand-by assist;Greater than 10 stairs (Single rail) Interventions Interventions Quick Adds Therapeutic Activity;Gait Training Therapeutic Activity Therapeutic Activities: dynamic activities to improve functional performance Minutes (21936) 10 Symptoms Noted During/After Treatment Fatigue Treatment Detail/Skilled Intervention Patient greeted seated on EOB. present and attentive to patient's needs. Patient very [place] but following commands appropriately. Patient agreeable to [...] with RN. Gait Training Gait Training Minutes (56785) 24 Symptoms Noted During/After Treatment (Gait Training) [...] rest neededbefore ascending stairs. Patient alternates between [id number] and step-to pattern when ascending stairs, again [...] (sum of timed and untimed services) 46 STRIAN TRAINER * Shashank Arellano, RN - 10/16/2023 9:08 AM CST Care Suites Post Procedure Note Patient Information Name: Ilan Alaniz Age: [age] year old Post Procedure Bedside report taken by receiving RN STRIAN TRAINER * Merlyn Lyon CNP - 10/16/2023 7:41 AM CST [facility] Cardiology Progress Note Date of Service: 10/16/2023 Primary Emergency Room Rn: Dr. Patel Staff Emergency Room Rn: Dr. Malik Assessment & Plan Ilan Alaniz [...] Rate control: Toprol XL 25 mg daily [FILM LIBRARIAN atenolol 50 mg daily] S/p successful DCCV [...] Continue Toprol XL 25 mg daily, stop FILM LIBRARIAN atenolol. Continue Xarelto 20 mg daily for stroke prophylaxis. Follow-up arranged with Rhonda Christian CNP, on 11/05/23. Okay to discharge from a cardiology standpoint. Merlyn Lyon, MOTORCYCLE REPAIRER Pager: (7am - 5pm, M-F) Physical Exam [...] encounter: 95.7 kg (210 lb 14.4 oz). STRIAN TRAINER Associated attestation - Tian Malik MD - 10/16/2023 2:41 PM EQUESTRIAN TRAINER Physician Attestation I saw and evaluated Ilan Alaniz as part of a shared FRUIT II FARMWORKER/PA visit. I personally reviewed the vital signs, [...] senna x1. Recommend senna 2 tab for second shift supervisor. Skin Concerns: Bruise R thigh Drains/Devices: PIV SL Patient Stated Goal for Today: prep for procedures STRIAN TRAINER * Liss Pride RN - 10/15/2023 4:39 PM CST [facility] Home Health Patient is currently receiving services with [facility]. The patient is currently receiving RN services. Patient's case technician and home health team have been notified that patient is under inpatient status [facility] Liaison will continue to follow patient during stay. Please provide orders to resume home care at time of discharge if appropriate. STRIAN TRAINER * Heather Parada RN - 10/15/2023 2:00 [...] met and patient is ready for discharge. STRIAN TRAINER * Cedric, Bacilio Salazar MD - 10/15/2023 10:40 AM CST [facility] Medicine Progress Note - Hospitalist [...] then admitted to inpatient. - Telemetry. - FILM LIBRARIAN Atenolol switched to metoprolol per cardiology. - Continue FILM LIBRARIAN Xarelto. - PRN IV metoprolol for sustained [...] - Telemetry. - Xarelto, metoprolol, losartan. - FILM LIBRARIAN rosuvastatin on hold for now as noted [...] manage insulin with frequent episodes of hypoglycemia. *FILM LIBRARIAN Regimen: Takes insulin Glargine 80-90 units at bed time, despite PCP recommendation that he takes 50 units. Last HbA1c 8.7% - Hypoglycemia protocol. - Preprandial and HS fingerstick checks or Q 4 hours while NPO. - Hold FILM LIBRARIAN metformin. - Medium dose sliding scale insulin ordered. - FILM LIBRARIAN lantus decreased to 30 units at bedtime. [...] insulin. Coronary artery disease Benign essential hypertension FILM LIBRARIAN Regimen: Atenolol, losartan, xarelto and rosuvastatin EKG: Atrial fibrillation with rapid ventricular response with left axis deviation Possible Anterior infarct , age undetermined. Last ECHO: 10/01/23 EF 60-65%. Last stress test: 08/21/23 Negative for inducible myocardial ischemia or infarction. Follows with cardiology at [facility] Dr. Patel. - Telemetry. - Continue FILM LIBRARIAN Losartan and Atenolol with hold parameters. - HOLD FILM LIBRARIAN Crestor for now, consider restarting at a lower dose upon discharge. - Continue FILM LIBRARIAN nitroglycerin SL PRN 0.4 mg SL tablet [...] triglycerides 65, LDL 27, HDL 26. - FILM LIBRARIAN rosuvastatin on hold, consider restarting at a [...] following. Cardioversion. Bacilio Steele MD Hospitalist Service [facility] Securely message with [employer] (more info) Text page via [facility] Paging/Directory Interval History Ilan Alaniz was [...] No acute displaced fracture. PRECIOUS YOON MD STRIAN TRAINER * Heather Parada RN - 10/15/2023 10:00 [...] met and patient is ready for discharge. STRIAN TRAINER * Lauryn Sanchez RN - 10/15/2023 6:00 [...] met and patient is ready for discharge. STRIAN TRAINER * Lauryn Sanchez RN - 10/15/2023 2:00 [...] met and patient is ready for discharge. STRIAN TRAINER * Lauryn Sanchez RN - 10/14/2023 10:00 [...] met and patient is ready for discharge. STRIAN TRAINER * Heather Parada, RN - 10/14/2023 6:47 [...] Patient Stated Goal for Today: pain management. STRIAN TRAINER * Heather Parada RN - 10/14/2023 5:14 PM CST RECEIVING UNIT ED HANDOFF REVIEW ED Nurse Handoff Report was reviewed by: Heather Parada RN on October 14, 2023 at 5:14 PM STRIAN TRAINER documented in this encounter H&P Notes * Dulce Fisher PA-C - 10/14/2023 1:42 PM CST [facility] History and Physical - Hospitalist [...] Nicanor Patel 09/23/23. - Telemetry - Continue FILM LIBRARIAN Atenolol - Continue FILM LIBRARIAN anticoagulation, with Xerelto - PRN IV metoprolol for sustained heart rate >120 - Monitor K+/Mg++, replace PRN - Cardiology consult with plan for cardioversion. 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 Last HbA1c 8.7% - Hypoglycemia protocol - Preprandial and HS fingerstick checks or Q 4 hours while NPO - Hold FILM LIBRARIAN oral antiglycemics (Metformin) - Sliding scale insulin [...] 201* Coronary artery disease Benign essential hypertension FILM LIBRARIAN Regimen: Atenolol, losartan, xarelto and rosuvastatin EKG: Atrial fibrillation with rapid ventricular response with left axis deviation Possible Anterior infarct , age undetermined Last ECHO: 10/01/23 EF 60-65% Last stress test: 08/21/23 Negative for inducible myocardial ischemia or infarction. Follows with cardiology at [facility] Dr. Patel - Telemetry-Yes - Continue FILM LIBRARIAN Losartan, Atenolol with hold parameters - HOLD FILM LIBRARIAN Crestor - Continue FILM LIBRARIAN nitroglycerin SL PRN 0.4 mg SL tablet q5min times three doses for chest pain - Hold FILM LIBRARIAN losartan for SBP less than 110 and Atenolol for HR less than 60 - PRN IV hydralazine available for SBP >180 - Monitor BP trend and need for medication adjustments Cognitive Dysfunction, progressive *Inability to manage and administer medications in a safe manner -OT for formal cognitive evaluation Dyslipidemia Baseline lipid panel unavailable - Continue FILM LIBRARIAN Crestor Chronic kidney disease, stage 3A Baseline [...] Mukherjee APRN, YULI Fisher PA-C Hospitalist Service [facility] Securely message with [employer] (more info) Text page via [facility] Paging/Directory Chief Complaint Weakness and persistent [...] was also seen in the ED at [facility] on 10/01 with symptoms similar to that [...] History Past Surgical History: Procedure Laterality Date [facility] NONSPECIFIC PROCEDURE 2004 Cholecystectomy [facility] NONSPECIFIC PROCEDURE Appendectomy [facility] NONSPECIFIC PROCEDURE Lysis of adhesions for [...] appears clear. ELO DIETRICH MD SYSTEM ID: [id number] STRIAN TRAINER Associated attestation - Michelle Eckert MD - 10/15/2023 3:12 PM EQUESTRIAN TRAINER Physician Attestation I have reviewed and discussed [...] 9:05 AM CSTAssociated Order(s): EP Cardioversion External [facility] Procedure: EP Cardioversion External Date/Time: 10/16/2023 8:35 AM Performed by: Carter Ellis MD Authorized by: Merlyn Loyn CNP [employer] Site Marked: Yes Prior Images Obtained and Reviewed: Yes Required items: Required blood products, implants, devices and special equipment available Patient identity confirmed: Verbally with patient Patient was reevaluated immediately before administering moderate or deep sedation or anesthesia Confirmation Checklist: Patient's identity using two indicators Time out: Immediately prior to the procedure a time out was called [place] Protocol: the Joint Commission [place] Protocol was followed Preparation: Patient was prepped [...] without bradycardia or pauses. No apparent complications. STRIAN TRAINER documented in this encounter Consult Notes * [...] comments) Handoff Referral Completed: Yes Additional Information: Chief Nurse checked in with patient and spouse at the bedside. Patient is cleared for discharge to home with resumption of homecare RN and PT should be added on. Spouse noted that [facility] has the patient scheduled for this Thursday 10/19. Chief Nurse to send a message to the homecare Liaison regarding PT being added. No further needs identified. Rachel Palomares RN, BSN, ACM Care Transitions Specialist [facility] Care Transitions Specialist [address] [place] [address] Office: [phone] [facility] STRIAN TRAINER * Jane Norton PA-C - 10/16/2023 11:02 AM CSTAssociated Order(s): GASTROENTEROLOGY IP CONSULT [facility] Gastroenterology Consultation Ilan Alaniz [address] [place] [id number] 83 year old male Admission Date/Time: 10/14/2023 [...] avoid alcohol [facility] Office: [phone] (Dr. Dinh) (Jane Norton PA-C) STRIAN TRAINER Associated attestation - Sanya Dinh MD - 10/28/2023 7:30 AM EQUESTRIAN TRAINER History and physical exam was done independently.Patient's [...] MD FACP TESFAYE OTOOLE * Sharon Crain, AMERICAN SIGN LANGUAGE TEACHER - 10/15/2023 4:23 PM CSTAssociated Order(s): CARE MANAGEMENT / SOCIAL WORK IP CONSULT Care Management Initial Consult General Information Assessment completed with: (pt's ), Type of CM/SW Visit: Initial Assessment Primary Care Provider verified and updated as needed: Readmission within the last 30 days: unable to assess Reason for Consult: discharge planning Advance Care Planning: Communication Assessment Patient's communication style: spoken language (Singaporean or Bilingual) Hearing Difficulty or Deaf: yes [...] care services: (Pt is signed up for [facility] ; has done intake) Community Resources: None [...] Chemical Dependency Status: Values/Beliefs: Spiritual, Cultural Beliefs, Sabianism Practices, Values that affect care: Additional Information: Pt is an 83 year old male who was admitted to hospital with concerns of decreased energy and persistent chest pain. Chief Nurse met with pt at bedside. Introduced self and role. Pt is asleep. Chief Nurse spoke with pt's .Introduced self and [...] had an intake this past Saturday with [facility] home care pr pt's for [facility]. She states they would likely be interested in PT/OT being added on if it were to be recommended by therapy. Pt's aware that care management is awaiting therapy recommendations. Chief Nurse informed her if theyrecommend anything greater than home care then care management will stop by to discuss with pt and her. Pt's states no further questions or concerns at this time. SHELBI Pineda Social Work [facility] STRIAN TRAINER * Tian Malik MD - 10/15/2023 11:18 AM CST [facility] Cardiology Consultation Date of Admission: [...] he continues to have chest pain following spiritism of sinus rhythm, will consider coronary angiography. 3. Community-acquired pneumonia 4. Diabetes with recurrent hypoglycemia Tian Malik MD, [facility] High complexity Tian Malik MD, [...] History Past Surgical History: Procedure Laterality Date [facility] NONSPECIFIC PROCEDURE 2004 Cholecystectomy [facility] NONSPECIFIC PROCEDURE Appendectomy [facility] NONSPECIFIC PROCEDURE Lysis of adhesions for [...] HDL, LDL, TRIG, CHOLHDLRATIO in the last 81441 hours. Recent Labs Lab 10/15/23 0715 10/14/23 [...] appears clear. ELO DIETRICH MD SYSTEM ID: [id number] XR Chest 2 Views Narrative CHEST TWO [...] encounter: 96.3 kg (212 lb 3.2 oz). STRIAN TRAINER documented in this encounter ED Notes * Cyndee Miller RN - 10/14/2023 5:07 PM CST [facility] ED Nurse Handoff Report ED Chief complaint: [...] Current: Stand with Assist Patient's Preferred language: Singaporean Cement Patcher Needed?: No Isolation: None Infection: Not Applicable [...] at bedside OBS brochure/video discussed/provided to patient/family: [place] of person given brochure if not patient: Relationship to patient: For the majority of the shift this patient's behavior was Green. Behavioral interventions performed were . ED NURSE PHONE NUMBER: *[id number] STRIAN TRAINER * David Ahn RN - 10/14/2023 12:40 [...] WDL WDL Cognitive/Neuro/Behavioral WDL Cognitive/Neuro/Behavioral WDL WDL STRIAN TRAINER * Baldev Burton, - 10/14/2023 12:38 PM CST PIT/Triage Evaluation Patient presented with chest pain and shortness of breath. The patient states that on 08/16/23, he began experiencing a tremendous central chest pain that radiated to his left chest and shoulder while walking up some stairs. 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 Exam is notable for: General: Patient in [...] leaving the hospital. Baldev Burton, 10/14/23 1249 STRIAN TRAINER * Ilan Alves MD - 10/14/2023 12:22 [...] this year where he was seen at [facility] for A-fib. Allergies: Animal Dander No [...] History: Past Surgical History: Procedure Laterality Date [facility] NONSPECIFIC PROCEDURE 2004 Cholecystectomy [facility] NONSPECIFIC PROCEDURE Appendectomy [facility] NONSPECIFIC PROCEDURE Lysis of adhesions for [...] reviewed by me General: Pt seen on [facility], pleasant, cooperative, and alert to conversation. Non [...] Blood Pressure Ventricular Rate 103 Atrial Rate FL Interval QRS Duration 86 QT 290 QTc 379 P [place] R AXIS -40 T [place] 100 Interpretation ECG Atrial fibrillation with rapid [...] Ilan Alves* Ilan Alves MD 10/14/23 1717 STRIAN TRAINER documented in this encounter Miscellaneous Notes * Result Encounter Note - Triston Knight PA-C - 10/16/2023 4:33 PM EQUESTRIAN TRAINER Abnormal Zio results forwarded to Jean Claude Encarnacion, Cardiovascular Diseases at [facility] (pt hasappt 10/23). STRIAN TRAINER * Plan of Care - Wen Arciniega OTR - 10/16/2023 2:51 PM CST Occupational Therapy: Orders received. Chart reviewed and discussed with care team.? Occupational Therapy not indicated due to per PT, pt mobilizing well and ind in bathroom. Discharging home and no acute IP OT needs identified.? Defer discharge recommendations to care team.? Will complete orders. STRIAN TRAINER * Plan of Care - Sarah Sheth, PT - 10/16/2023 12:23 PM CST Physical Therapy Discharge Summary Reason for therapy discharge: Discharged to home with home therapy. Progress towards therapy goal(s). See goals on Care Plan in [facility] electronic health record for goal [...] his ability to participate in therapy session. STRIAN TRAINER * Plan of Care - Katelyn Nagel [...] Patient Stated Goal for Today: Go home STRIAN TRAINER * Pre-Procedure - Carter Ellis MD - [...] data, medications, and the plan for sedation STRIAN TRAINER * Plan of Care - Lauryn Sanchez [...] Stated Goal for Today: prep for procedures STRIAN TRAINER * Utilization Review - Roberto Pacheco MD - 10/15/2023 12:19 PM EQUESTRIAN TRAINER Admission Status; Secondary Review Determination Under the [...] section 70.4. Sincerely, ROBERTO PACHECO MD System Digital Associate Media DirectorActing Professor [facility]. STRIAN TRAINER * Plan of Care - Lauryn Sanchez [...] Patient Stated Goal for Today: pain management. STRIAN TRAINER * Pharmacy-Admission Medication History - Bridgette Arciniega [facility] - 10/14/2023 2:27 PM CST Pharmacist Admission [...] and typed health system med list from [facility]. -atenolol: spouse verified new atenolol has [...] not taking, finds ineffective. Changes made to FILM LIBRARIAN medication list: Added: amlodipine, oxycodone, multivitamin, magnesium, [...] reviewed Medication History Completed By: Bridgette Arciniega [facility] 10/14/2023 2:27 PM FILM LIBRARIAN Med List Medication Sig Note Last Dose [...] as needed for severe pain Unknown at [facility], has home supply rivaroxaban ANTICOAGULANT (XARELTO) 20 MG TABS tablet Take 1 tablet (20 mg) by mouth daily (with dinner) 10/13/2023 at dinner rosuvastatin (CRESTOR) 40 MG tablet Take 1 tablet (40 mg) by mouth at bedtime 10/13/2023 at HS Vitamin D3 (VITAMIN D, CHOLECALCIFEROL,) 25 mcg (1000 units) tablet Take 25 mcg by mouth daily 10/14/2023 at AM STRIAN TRAINER documented in this encounter Plan of Treatment Upcoming Encounters Date Type Department Care Team (Late st Contact Info) Description 05/14/2024 12:30 PM CDT Office Visit [facility] [address] [facility] [facility] [address] [place] [phone] Gail Post MD [address] [place] [address] Anushka Carrasquillo MD [address] [place], [place] [id number] Scheduled Referrals Name Type Priority Associated Diagnoses Orde r Schedule Adult Endocrinology Master Technician Referral Referral Routine: Next available opening Type [...] AND PROVIDER INTERPRETATION Routine 10/16/2023 7:05 PM EQUESTRIAN TRAINER GLUCOSE BY METER Routine 10/16/2023 12:0 6 PM EQUESTRIAN TRAINER HEPATITIS A ANTIBODY IGM Routine 10/16/2023 10:22 AM EQUESTRIAN TRAINER EKG 12-LEAD, TRACING ONLY Routine 10/16/2023 10:04 AM EQUESTRIAN TRAINER US ABDOMEN LIMITED Routine 10/16/2023 9: 36 AM EQUESTRIAN TRAINER CARDIOVERSION EXTERNAL Routine 8:35 AM EQUESTRIAN TRAINER ANESTHESIA, FOR CARDIOVERSION 10/16/2023 8:20 AM EQUESTRIAN TRAINER Chronic atrial fibrillation (H) GLUCOSE BY METER Routine 10/16/2023 7:29 AM EQUESTRIAN TRAINER EKG 12-LEAD, TRACING ONLY STAT 10/16/2023 7:11 AM EQUESTRIAN TRAINER INR STAT 10/16/2023 6:08 AM EQUESTRIAN TRAINER MAGNESIUM STAT 10/16/2023 6:08 AM EQUESTRIAN TRAINER HEPATITIS C ANTIBODY Add-On 10/16/2023 6:08 AM EQUESTRIAN TRAINER HEPATITIS B SURFACE ANTIGEN Add-On 10/16/2023 6:08 AM EQUESTRIAN TRAINER COMPREHENSIVE METABOLIC PANEL STAT 10/16/2023 6:08 AM EQUESTRIAN TRAINER CBC WITH PLATELETS Routine 10/16/2023 6: 08 AM EQUESTRIAN TRAINER GLUCOSE BY METER Routine 10/16/2023 1:10 AM EQUESTRIAN TRAINER GLUCOSE BY METER Routine 10/15/2023 9:26 PM EQUESTRIAN TRAINER GLUCOSE BY METER Routine 10/15/2023 5:29 PM EQUESTRIAN TRAINER GLUCOSE BY METER Routine 10/15/2023 12:0 1 PM EQUESTRIAN TRAINER XR CHEST 2 VIEWS Routine 10/15/2023 8:09 AM EQUESTRIAN TRAINER GLUCOSE BY METER Routine 10/15/2023 7:39 AM EQUESTRIAN TRAINER TROPONIN T, HIGH SENSITIVITY Routine 10/15/2023 7:15 AM EQUESTRIAN TRAINER LIPID REFLEX TO DIRECT LDL PANEL Routine 10/15/2023 7:15 AM EQUESTRIAN TRAINER COMPREHENSIVE METABOLIC PANEL Routine 10/15/2023 7:15 AM EQUESTRIAN TRAINER CBC WITH PLATELETS Routine 10/15/2023 7: 15 AM EQUESTRIAN TRAINER GLUCOSE BY METER Routine 10/15/2023 2:13 AM EQUESTRIAN TRAINER GLUCOSE BY METER Routine 10/14/2023 10:1 1 PM EQUESTRIAN TRAINER LACTIC ACID WHOLE BLOOD STAT 10/14/2023 6:53 PM EQUESTRIAN TRAINER GLUCOSE BY METER Routine 10/14/2023 5:42 PM EQUESTRIAN TRAINER INFLUENZA A/B, RSV, & SARS-COV2 PCR STAT 10/14/2023 4:40 PM EQUESTRIAN TRAINER TROPONIN T, HIGH SENSITIVITY STAT 10/14/2023 2:57 PM EQUESTRIAN TRAINER LACTIC ACID WHOLE BLOOD STAT 10/14/2023 2:57 PM EQUESTRIAN TRAINER BLOOD CULTURE STAT 10/14/2023 2:28 PM EQUESTRIAN TRAINER BLOOD CULTURE STAT 10/14/2023 2:20 PM EQUESTRIAN TRAINER XR CHEST 2 VIEWS STAT 10/14/2023 1:12 PM EQUESTRIAN TRAINER EXTRA TUBE STAT 10/14/2023 12:53 PM EQUESTRIAN TRAINER EXTRA BLUE TOP TUBE STAT 10/14/2023 1 2:53 PM EQUESTRIAN TRAINER CBC WITH PLATELETS AND DIFFERENTIAL STAT 10/14/2023 12:53 PM EQUESTRIAN TRAINER TROPONIN T, HIGH SENSITIVITY STAT 10/14/2023 12:53 PM EQUESTRIAN TRAINER PROCALCITONIN Add-On 10/14/2023 12:53 PM EQUESTRIAN TRAINER CBC WITH PLATELETS & DIFFERENTIAL STAT 10/14/2023 12:53 PM EQUESTRIAN TRAINER MAGNESIUM Add-On 10/14/2023 12:53 PM EQUESTRIAN TRAINER LIPASE STAT 10/14/2023 12:53 PM EQUESTRIAN TRAINER HEMOGLOBIN A1C Add-On 10/14/2023 12:53 PM EQUESTRIAN TRAINER COMPREHENSIVE METABOLIC PANEL STAT 10/14/2023 12:53 PM EQUESTRIAN TRAINER EKG 12-LEAD, TRACING ONLY STAT 10/14/2023 12:41 PM EQUESTRIAN TRAINER documented in this encounter Results * HOLTER MONITOR 48 HOUR APPLICATION SCAN ANALYSIS AND PROVIDER INTERPRETATION (10/16/2023 7:05 PM EQUESTRIAN TRAINER) Anatomical Region Laterality Modality Other 10/16/2023 4:17 PM EQUESTRIAN TRAINER 10/21/2023 6:00 PM EQUESTRIAN TRAINER Narrative 10/21/2023 6:00 PM EQUESTRIAN TRAINER Kamron De León was monitored for 48 hours. Quality of the tracing was good. Predominant rhythm was Atrial fibrillation ??(61% of the recording). Average HR was 112 bpm, maximum HR was 163 bpm at 12:42 PM (Day 1), minimum HR was 74 bpm at 6:18 AM ??(Day 1). FL interval measured 0.17 seconds, QRS duration 0.09 seconds, QT interval 0.297-0.336 seconds. There were zero pauses over 2.0 seconds. 2. There were 7,774 ventricular ectopic beats (3% [place]), 7,187 of these were isolated PVCs. There were 269 couplets and 15 ??triplets. There was one 4 beat ventricular run with a rate of 176 bpm at 6:15 PM (Day 2). 3. There were 8,313 supraventricular ectopic beats (3% [place]), 6,963 of these were isolated PACs. There [...] were noted. 10/19/2023 Confirmed by NICANOR PATEL ([id number]) on 10/21/2023 6:00:23 PM Procedure Note Nicanor Patel MD - 10/21/2023 1. Ilan De León was monitored for 48 hours. Quality of the tracingwas good. Predominant rhythm was Atrial fibrillation (61% of therecording). Average HR was 112 bpm, maximum HR was 163 bpm at 12:42 PM (Day 1),minimum HR was 74 bpm at 6:18 AM (Day 1). FL interval measured 0.17seconds, QRS duration 0.09 seconds, QT interval 0.297-0.336 seconds. There were zero pauses over 2.0 seconds. 2. There were 7,774 ventricular ectopic beats (3% [place]), 7,187 of thesewere isolated PVCs. There were 269 couplets and 15 triplets. There wasone 4 beat ventricular run with a rate of 176 bpm at 6:15 PM (Day 2). 3. There were 8,313 supraventricular ectopic beats (3% [place]), 6,963 ofthese were isolated PACs. There were [...] were noted. 10/19/2023 Confirmed by NICANOR PATEL ([id number]) on 10/21/2023 6:00:23 PM Merlyn Lyon [facility] CARDIAC SERVICES ORDERABLES * (ABNORMAL) Glucose by meter (10/16/2023 12:06 PM EQUESTRIAN TRAINER) GLUCOSE BY METER POCT 154(H) 70 - 99 mg/dL 10/16/2023 12:16 PM EQUESTRIAN TRAINER LABORATORY POC Blood, Capillary BLOOD SPECIMEN / Unknown 10/16/2023 12:06 PM EQUESTRIAN TRAINER 10/16/2023 12:16 PM EQUESTRIAN TRAINER Michelle Eckert MD LAB - BEAKER POCT LABORATORY POC [facility] [address] [place] [address], [facility] [phone] * Hepatitis A antibody IgM (10/16/2023 10:22 AM EQUESTRIAN TRAINER) Hepatitis A Antibody IgM Nonreactive Nonreactive 10/16/2023 3:37 PM EQUESTRIAN TRAINER LABORATORY Comment:Nonreactive results indicate either inadequate or delayed anti-HAV IgM response after known exposure to HAV or absence of acute or recent hepatitis A. Blood STRUCTURE OF RIGHT UPPER LIMB / Unknown Venipuncture / Unknown 10/16/2023 10:22 AM EQUESTRIAN TRAINER 10/16/2023 10:27 AM EQUESTRIAN TRAINER Gail Post MD LAB - BLOOD ORDERABL ES LABORATORY [facility] [address] [facility] [facility], [address] [place] [address], [place] [phone] * EKG 12-lead, tracing only (10/16/2023 10:04 AM EQUESTRIAN TRAINER) Systolic Blood Pressure mmHg RADIOLOGY RESULTS Diastolic Blood Pressure mmHg RADIOLOGY RESULTS Ventricular Rate 91 BPM RAD IOLOGY RESULTS Atrial Rate 91 BPM RADIOLOG Y RESULTS FL Interval 182 ms RADIOLOG Y RESULTS QRS Duration 80 ms RADIOLO GY RESULTS QT 330 ms RADIOLOGY RESULTS QTc 405 ms RADIOLOGY RESULTS P [place] 74 degrees RADIOLOGY RESULTS R AXIS 19 degrees RADIOLOGY RESULTS T [place] 213 degrees RADIOLOGY RESULTS Interpretation ECG Sinus rhythm with occasional Premature ventricular complexes and Premature atrial complexes Cannot rule out Anterior infarct , age undetermined Abnormal ECG When compared with ECG of 16-OCT-2023 07:11, (unconfirmed) Sinus rhythm has replaced Atrial fibrillation Confirmed by MD GRAY GREGORY ([id number]), social media editor Cole Pool ([id number]) on 10/18/2023 7:58:52 AM RADIOLOGY RESULTS 10/16/2023 10:0 4 AM EQUESTRIAN TRAINER 10/18/2023 7:58 AM EQUESTRIAN TRAINER Carter Ellis MD ECG ORDERABLES RADIOLOGY RESULTS * US Abdomen Limited (10/16/2023 9:36 AM EQUESTRIAN TRAINER) Anatomical Region Laterality Modality Abdomen/Pelvis Ultrasound Impressions 10/16/2023 10:25 AM EQUESTRIAN TRAINER IMPRESSION: 1. ??Hepatic steatosis, similar to previous. TRAVON HARRIS MD Narrative 10/16/2023 10:25 AM EQUESTRIAN TRAINER US ABDOMEN LIMITED 10/16/2023 9:36 AM CLINICAL [...] ORDERABLES * CARDIOVERSION EXTERNAL (10/16/2023 8:35 AM EQUESTRIAN TRAINER) Anatomical Region Laterality Modality Other Narrative 10/16/2023 8:35 AM EQUESTRIAN TRAINER Carter Ellis MD ? 10/16/2023 ??9:05 AM [...] procedure a time out was called ?? [place] Protocol: the Joint Commission [place] Protocol was followed ?? Preparation: Patient was [...] (ABNORMAL) Glucose by meter (10/16/2023 7:29 AM EQUESTRIAN TRAINER) GLUCOSE BY METER POCT 128(H) 70 - 99 mg/dL 10/16/2023 7:36 AM [facility] POC Blood, Capillary BLOOD SPECIMEN / Unknown 10/16/2023 7:29 AM EQUESTRIAN TRAINER 10/16/2023 7:36 AM EQUESTRIAN TRAINER [facility] LABORAT[facility] POC [facility] [address], [address] [place] [address], [facility] [phone] * EKG 12-lead, tracing only (10/16/2023 7:11 AM EQUESTRIAN TRAINER) Systolic Blood Pressure mmHg RADIOLOGY RESULTS Diastolic Blood Pressure mmHg RADIOLOGY RESULTS Ventricular Rate 108 BPM RAD IOLOGY RESULTS Atrial Rate 115 BPM RADIOLOG Y RESULTS FL Interval ms RADIOLOG Y RESULTS QRS Duration 84 ms RADIOLO GY RESULTS QT 308 ms RADIOLOGY RESULTS QTc 412 ms RADIOLOGY RESULTS P [place] degrees RADIOLOGY RESULTS R AXIS -31 degrees RADIOLOGY RESULTS T [place] 174 degrees RADIOLOGY RESULTS Interpretation ECG Atrial fibrillation with rapid ventricular response with premature ventricular or aberrantly conducted complexes Left axis deviation Nonspecific ST and T wave abnormality Abnormal ECG When compared with ECG of 14-OCT-2023 12:41, Nonspecific T wave abnormality now evident in Inferior leads Nonspecific T wave abnormality, worse in Lateral leads Confirmed by STACY FITZGERALD ([id number]), social media editor Cole Pool ([id number]) on 10/18/2023 8:02:41 AM RADIOLOGY RESULTS 10/16/2023 7:11 AM EQUESTRIAN TRAINER 10/18/2023 8:02 AM EQUESTRIAN TRAINER Michelle Eckert MD ECG ORDERABLES RADIOLOGY RESULTS * Hepatitis C antibody (10/16/2023 6:08 AM EQUESTRIAN TRAINER) Hepatitis C Antibody Nonreactive Nonreactive 10/16/2023 3:31 PM EQUESTRIAN TRAINER [facility] Comment:A nonreactive screen ing test [...] Unknown Venipuncture / Unknown 10/16/2023 6:08 AM EQUESTRIAN TRAINER 10/16/2023 6:16 AM EQUESTRIAN TRAINER Gail Post MD LAB - BLOOD ORDERABL ES Performing Organization Address City/[facility]/ZIP Co de Phone Number U LABORATORY [facility] [address] [facility] [facility], [address] [address], [facility] [phone] * Hepatitis B surface antigen (10/16/2023 6:08 AM EQUESTRIAN TRAINER) Hepatitis B Surface Antigen Nonreactive Nonreactive 10/16/2023 3:31 PM EQUESTRIAN TRAINER [facility] LAB[facility]ATORY Blood STRUCTURE OF RIGHT HAND / Unknown Venipuncture / Unknown 10/16/2023 6:08 AM EQUESTRIAN TRAINER 10/16/2023 6:16 AM EQUESTRIAN TRAINER Gail Post MD LAB - BLOOD ORDERABL ES Performing Organization Address [facility] Co de Phone Number U LABORATORY [facility] [address] [facility] [facility], [address] [address], [facility] [phone] * (ABNORMAL) Comprehensive metabolic panel (10/16/2023 6:08 AM EQUESTRIAN TRAINER) Pathologist [facility] Sodium 141 135 - 145 mmol/L 10/16/2023 6:42 AM [facility] Comment:Reference intervals for this test were updated on 05/28/2023 to more accurately reflect our healthy population. There may be differences in the flagging of prior results with similar values performed with this method. Interpretation of those prior results can be made in the context of the updated reference intervals. Potassium 3.9 3.4 - 5.3 mmol/L 10/16/2023 6:42 AM [facility] Carbon Dioxide (CO2) 27 22 - 29 mmol/L 10/16/2023 6:42 AM [facility] Anion Gap 11 7 - 15 mmol/L 10/16/2023 6:42 AM [facility] Urea Nitrogen 27.2(H) 8.0 - 23.0 mg/dL 10/16/2023 6:42 AM [facility] Creatinine 1.38(H) 0.67 - 1.17 mg/dL 10/16/2023 6:42 AM [facility] GFR Estimate 51(L) >60 mL/min/1. 73m2 10/16/2023 6:42 AM [facility] Calcium 9.1 8.8 - 10.2 mg/dL 10/16/2023 6:42 AM [facility] Chloride 103 98 - 107 mmol/L 10/16/2023 6:42 AM [facility] Glucose 135(H) 70 - 99 mg/dL 10/16/2023 6:42 AM [facility] Alkaline Phosphatase 107 40 - 150 U/L 10/16/2023 6:42 AM [facility] Comment:Reference intervals for this test were updated on 07/16/2023 to more accurately reflect our healthy population. There may be differences in the flagging of prior results with similar values performed with this method. Interpretation of those prior results can be made in the context of the updated reference intervals. AST 193(H) 0 - 45 U/L 10/16/2023 6:42 AM [facility] Comment:Reference intervals for this test were updated on 02/11/2023 to more accurately reflect our healthy population. There may be differences in the flagging of prior results with similar values performed with this method. Interpretation of those prior results can be made in the context of the updated reference intervals. ALT 240(H) 0 - 70 U/L 10/16/2023 6:42 AM [facility] Comment:Reference intervals for this test were updated on 02/11/2023 to more accurately reflect our healthy population. There may be differences in the flagging of prior results with similar values performed with this method. Interpretation of those prior results can be made in the context of the updated reference intervals. Protein Total 6.4 6.4 - 8.3 g/dL 10/16/2023 6:42 AM [facility] Albumin 2.9(L) 3.5 - 5.2 g/dL 10/16/2023 6:42 AM [facility] Bilirubin Total 0.3 <=1.2 mg/dL 10/16/2023 6:42 AM [facility] Blood STRUCTURE OF RIGHT HAND / Unknown Venipuncture / Unknown 10/16/2023 6:08 AM EQUESTRIAN TRAINER 10/16/2023 6:[address] [facility] Bacilio Steele MD LAB - BLOOD OR DERABLES LABORATORY [facility] [address], [address] [place] [address], [facility] [phone] * (ABNORMAL) CBC with platelets (10/16/2023 6:08 AM EQUESTRIAN TRAINER) WBC Count 10.7 4.0 - 11.0 10e3/uL 10/16/2023 6:22 AM [facility] RBC Count 4.08(L) 4.40 - 5.90 10e6/uL 10/16/2023 6:22 AM [facility] Hemoglobin 12.6(L) 13.3 - 17.7 g/dL 10/16/2023 6:22 AM [facility] Hematocrit 38.5(L) 40.0 - 53.0 % 10/16/2023 6:22 AM [facility] MCV 94 78 - 100 fL 10/16/2023 6:22 AM [facility] MCH 30.9 26.5 - 33.0 pg 10/16/2023 6:22 AM [facility] MCHC 32.7 31.5 - 36.5 g/dL 10/16/2023 6:22 AM [facility] RDW 12.8 10.0 - 15.0 % 10/16/2023 6:22 AM [facility] Platelet Count 493(H) 150 - 450 10e3/uL 10/16/2023 6:22 AM [facility] Blood STRUCTURE OF RIGHT HAND / Unknown Venipuncture / Unknown 10/16/2023 6:08 AM EQUESTRIAN TRAINER 10/16/2023 6:[address] [facility] Bacilio Steele MD LAB - BLOOD OR DERABLES LABORATORY [facility] [address], [address] [place] [address], [facility] [phone] * Magnesium (10/16/2023 6:08 AM EQUESTRIAN TRAINER) Magnesium 1.9 1.7 - 2.3 mg/dL 10/16/2023 6:42 AM EQUESTRIAN TRAINER LABORATORY Blood STRUCTURE OF RIGHT HAND / Unknown Venipuncture / Unknown 10/16/2023 6:08 AM EQUESTRIAN TRAINER 10/16/2023 6:16 AM EQUESTRIAN TRAINER Merlyn Lyon CNP LAB - BLOOD ORDERAB LES LABORATORY [facility] [address], [address] [place] [address], [place] [phone] * (ABNORMAL) INR (10/16/2023 6:08 AM EQUESTRIAN TRAINER) INR 3.26(H) 0.85 - 1.15 10/16/2023 6:45 AM EQUESTRIAN TRAINER LABORATORY Blood STRUCTURE OF RIGHT HAND / Unknown Venipuncture / Unknown 10/16/2023 6:08 AM EQUESTRIAN TRAINER 10/16/2023 6:16 AM EQUESTRIAN TRAINER Merlyn Lyon CNP LAB - BLOOD ORDERAB LES LABORATORY [facility] [address], [address] [place] [address], [place] [phone] * (ABNORMAL) Glucose by meter (10/16/2023 1:10 AM EQUESTRIAN TRAINER) GLUCOSE BY METER POCT 169(H) 70 - 99 mg/dL 10/16/2023 1:20 AM EQUESTRIAN TRAINER LABORATORY POC Blood, Capillary BLOOD SPECIMEN / Unknown 10/16/2023 1:10 AM EQUESTRIAN TRAINER 10/16/2023 1:20 AM EQUESTRIAN TRAINER Michelle Eckert MD LAB - BEAKER POCT LABORATORY POC [facility] [address], [address] [place] [address], [place] [phone] * (ABNORMAL) Glucose by meter (10/15/2023 9:26 PM EQUESTRIAN TRAINER) GLUCOSE BY METER POCT 219(H) 70 - 99 mg/dL 10/15/2023 9:33 PM EQUESTRIAN TRAINER LABORATORY POC Blood, Capillary BLOOD SPECIMEN / Unknown 10/15/2023 9:26 PM EQUESTRIAN TRAINER 10/15/2023 9:33 PM EQUESTRIAN TRAINER Michelle Eckert MD LAB - BEAKER POCT LABORATORY [facility] [address], [address] [place] [address], [place] [phone] * (ABNORMAL) Glucose by meter (10/15/2023 5:29 PM EQUESTRIAN TRAINER) GLUCOSE BY METER POCT 218(H) 70 - 99 mg/dL 10/15/2023 5:40 PM EQUESTRIAN TRAINER LABORATORY POC Blood, Capillary BLOOD SPECIMEN / Unknown 10/15/2023 5:29 PM EQUESTRIAN TRAINER 10/15/2023 5:40 PM EQUESTRIAN TRAINER Michelle TONEY - [facility] POCT [facility] [address], [address] [place] [address], [place] [phone] * (ABNORMAL) Glucose by meter (10/15/2023 12:01 PM EQUESTRIAN TRAINER) GLUCOSE BY METER POCT 130(H) 70 - 99 mg/dL 10/15/2023 12:07 PM EQUESTRIAN TRAINER LABORATORY POC Blood, Capillary BLOOD SPECIMEN / Unknown 10/15/2023 12:01 PM EQUESTRIAN TRAINER 10/15/2023 12:07 PM EQUESTRIAN TRAINER Michelle STERLING POCT LABORATORY POC [facility] [address], [address] [place] [address], [facility] [phone] * XR Chest 2 Views (10/15/2023 8:09 AM EQUESTRIAN TRAINER) Anatomical Region Laterality Modality Chest Digital Radiogra phy Impressions 10/15/2023 9:13 AM EQUESTRIAN TRAINER IMPRESSION: Stable cardiac silhouette which is partially obscured. Similar opacification of the left lung base which is favored secondary to a moderate-sized left pleural effusion with underlying consolidation not excluded. Similar calcified granuloma of the right lung base. No discernible pneumothorax. No acute displaced fracture. PRECIOUS YOON MD Narrative 10/15/2023 9:13 AM EQUESTRIAN TRAINER CHEST TWO VIEWS 10/15/2023 8:09 AM HISTORY: [...] (ABNORMAL) Glucose by meter (10/15/2023 7:39 AM EQUESTRIAN TRAINER) Pathologist [facility] GLUCOSE BY METER POCT 122(H) 70 - 99 mg/dL 10/15/2023 7:46 AM EQUESTRIAN TRAINER LABORATORY POC Blood, Capillary BLOOD SPECIMEN / Unknown 10/15/2023 7:39 AM EQUESTRIAN TRAINER 10/15/2023 7:46 AM EQUESTRIAN TRAINER [facility] PO[facility] LAB[facility] POC [facility] [address], [address] [place] [address], [facility] [phone] * (ABNORMAL) Lipid panel reflex to direct LDL (10/15/2023 7:15 AM EQUESTRIAN TRAINER) Cholesterol 66 <200 mg/dL 10/15/2023 11:29 AM EQUESTRIAN TRAINER [facility] Triglycerides 65 <150 mg/dL 10/15/2023 11:29 AM EQUESTRIAN TRAINER [facility] Direct Measure HDL 26(L) >=40 mg/dL 2023 11:29 AM EQUESTRIAN TRAINER [facility] LDL Cholesterol Calculated 27 <=100 mg/dL 10/15/2023 11:29 AM EQUESTRIAN TRAINER [facility] Non HDL Cholesterol 40 <130 mg/dL 10/15/2023 11:29 AM EQUESTRIAN TRAINER [facility] Patient Fasting > 8hrs? Yes 10/15/2023 11:29 AM EQUESTRIAN TRAINER [facility] LABORATORY Blood STRUCTURE OF RIGHT UPPER LIMB / Unknown Venipuncture / Unknown 10/15/2023 7:15 AM EQUESTRIAN TRAINER 10/15/2023 7:39 AM EQUESTRIAN TRAINER Narrative [facility] - 10/15/2023 11:29 AM EQUESTRIAN TRAINER Cholesterol Desirable: ??<200 mg/dL Triglycerides Normal: ??Less [...] PA-C LAB - BLOOD ORDERABLES [facility] [address] [facility], [address] [place] [address], [place] [phone] LABORATORY [facility] [address], [address] [place] [address], [place] [phone] * (ABNORMAL) Troponin T, High Sensitivity (10/15/2023 7:15 AM EQUESTRIAN TRAINER) Troponin T, High Sensitivity 30(H) <=22 ng/L 10/15/2023 8:11 AM EQUESTRIAN TRAINER LABORATORY Comment: Either a High Sensitivity Troponin [...] Unknown Venipuncture / Unknown 10/15/2023 7:15 AM EQUESTRIAN TRAINER 10/15/2023 7:39 AM EQUESTRIAN TRAINER Dulce Fisher PA-C LAB - BLOOD ORDERABLES LABORATORY [facility] [address], [address] [place] [address], [facility] [phone] * (ABNORMAL) CBC with platelets (10/15/2023 7:15 AM EQUESTRIAN TRAINER) WBC Count 15.3(H) 4.0 - 11.0 10e3/uL 10/15/2023 7:43 AM EQUESTRIAN TRAINER LABORATORY RBC Count 4.00(L) 4.40 - 5.90 10e6/uL 10/15/2023 7:43 AM [facility] Hemoglobin 12.4(L) 13.3 - 17.7 g/dL 10/15/2023 7:43 AM [facility] Hematocrit 36.9(L) 40.0 - 53.0 % 10/15/2023 7:43 AM [facility] MCV 92 78 - 100 fL 10/15/2023 7:43 AM [facility] MCH 31.0 26.5 - 33.0 pg 10/15/2023 7:43 AM [facility] MCHC 33.6 31.5 - 36.5 g/dL 10/15/2023 7:43 AM [facility] RDW 12.6 10.0 - 15.0 % 10/15/2023 7:43 AM [facility] Platelet Count 566(H) 150 - 450 10e3/uL 10/15/2023 7:43 AM [facility] Blood STRUCTURE OF RIGHT UPPER LIMB / Unknown Venipuncture / Unknown 10/15/2023 7:15 AM EQUESTRIAN TRAINER 10/15/2023 7:[address] [facility] Dulce Fisher PA-C LAB - BLOOD ORDERABLES LABORATORY [facility] [address], [address] [place] [address], [facility] [phone] * (ABNORMAL) Comprehensive metabolic panel (10/15/2023 7:[address] [facility]) [facility] Signature Sodium 138 135 - 145 mmol/L 10/15/2023 8:11 AM [facility] Comment:Reference intervals for this test were updated on 05/28/2023 to more accurately reflect our healthy population. There may be differences in the flagging of prior results with similar values performed with this method. Interpretation of those prior results can be made in the context of the updated reference intervals. Potassium 3.8 3.4 - 5.3 mmol/L 10/15/2023 8:11 AM [facility] Carbon Dioxide (CO2) 26 22 - 29 mmol/L 10/15/2023 8:11 AM [facility] Anion Gap 12 7 - 15 mmol/L 10/15/2023 8:11 AM [facility] Urea Nitrogen 26.1(H) 8.0 - 23.0 mg/dL 10/15/2023 8:11 AM [facility] Creatinine 1.41(H) 0.67 - 1.17 mg/dL 10/15/2023 8:11 AM [facility] GFR Estimate 49(L) >60 mL/min/1. 73m2 10/15/2023 8:11 AM [facility] Calcium 9.0 8.8 - 10.2 mg/dL 10/15/2023 8:11 AM [facility] Chloride 100 98 - 107 mmol/L 10/15/2023 8:11 AM [facility] Glucose 120(H) 70 - 99 mg/dL 10/15/2023 8:11 AM [facility] Alkaline Phosphatase 87 40 - 150 U/L 10/15/2023 8:11 AM [facility] Comment:Reference intervals for this test were updated on 07/16/2023 to more accurately reflect our healthy population. There may be differences in the flagging of prior results with similar values performed with this method. Interpretation of those prior results can be made in the context of the updated reference intervals. AST 64(H) 0 - 45 U/L 10/15/2023 8:11 AM [facility] Comment:Reference intervals for this test were updated on 02/11/2023 to more accurately reflect our healthy population. There may be differences in the flagging of prior results with similar values performed with this method. Interpretation of those prior results can be made in the context of the updated reference intervals. ALT 123(H) 0 - 70 U/L 10/15/2023 8:11 AM [facility] Comment:Reference intervals for this test were updated on 02/11/2023 to more accurately reflect our healthy population. There may be differences in the flagging of prior results with similar values performed with this method. Interpretation of those prior results can be made in the context of the updated reference intervals. Protein Total 6.4 6.4 - 8.3 g/dL 10/15/2023 8:11 AM [facility] Albumin 3.1(L) 3.5 - 5.2 g/dL 10/15/2023 8:11 AM EQUESTRIAN TRAINER LABORATORY Bilirubin Total 0.5 <=1.2 mg/dL 10/15/2023 8:11 AM EQUESTRIAN TRAINER LABORATORY Blood STRUCTURE OF RIGHT UPPER LIMB / Unknown Venipuncture / Unknown 10/15/2023 7:15 AM EQUESTRIAN TRAINER 10/15/2023 7:39 AM EQUESTRIAN TRAINER Dulce Fisher PA-C LAB - BLOOD ORDERABLES [facility] [address], [address] [place] [address], [place] [phone] * (ABNORMAL) Glucose by meter (10/15/2023 2:13 AM EQUESTRIAN TRAINER) GLUCOSE BY METER POCT 171(H) 70 - 99 mg/dL 10/15/2023 2:20 AM EQUESTRIAN TRAINER LABORATORY POC Blood, Capillary BLOOD SPECIMEN / Unknown 10/15/2023 2:13 AM EQUESTRIAN TRAINER 10/15/2023 2:20 AM EQUESTRIAN TRAINER Michelle STERLING POCT Performing Organization Address City/[facility]/ZIP Co de Phone Number [facility] [address], [address] [place] [address], [place] [phone] * (ABNORMAL) Glucose by meter (10/14/2023 10:11 PM EQUESTRIAN TRAINER) GLUCOSE BY METER POCT 221(H) 70 - 99 mg/dL 10/14/2023 10:19 PM EQUESTRIAN TRAINER LABORATORY POC Blood, Capillary BLOOD SPECIMEN / Unknown 10/14/2023 10:11 PM EQUESTRIAN TRAINER 10/14/2023 10:19 PM EQUESTRIAN TRAINER Michelle STERLING POCT LABORATORY POC [facility] [address], [address] [place] [address], [facility] [phone] * Lactic acid whole blood (10/14/2023 6:53 PM EQUESTRIAN TRAINER) Pathologist [facility] Lactic Acid 1.4 0.7 - 2.0 mmol/L 10/14/2023 7:02 PM [employer]RI[employer] TRAINER LABORATORY Blood STRUCTURE OF RIGHT HAND / Unknown Venipuncture / Unknown 10/14/2023 6:53 PM EQUESTRIAN TRAINER 10/14/2023 6:59 PM EQUESTRIAN TRAINER Dulce Fisher PA-C LAB - BLOOD ORDERABLES LABORATORY [facility] [address] 1st floor, [address] [address], [facility] [phone] * (ABNORMAL) Glucose by meter (10/14/2023 5:42 PM EQUESTRIAN TRAINER) [facility] GLUCOSE BY METER POCT 134(H) 70 - 99 mg/dL 10/14/2023 6:38 PM EQUESTRIAN TRAINER LABORATORY POC Blood, Capillary BLOOD SPECIMEN / Unknown 10/14/2023 5:42 PM EQUESTRIAN TRAINER 10/14/2023 6:38 PM EQUESTRIAN TRAINER Michelle Eckert MD LAB - BEAKER POCT LABORATORY POC [facility] [address] 1[address] floor, [address], [place] [address], [facility] [phone] * Asymptomatic Influenza A/B, RSV, & SARS-CoV2 PCR (COVID-19) Nasopharyngeal (10/14/2023 4:40 PM EQUESTRIAN TRAINER) Influenza A PCR Negative Negative 10/14/2023 6:12 PM EQUESTRIAN TRAINER LABORATORY Influenza B PCR Negative Negative 10/14/2023 6:12 PM EQUESTRIAN TRAINER LABORATORY RSV PCR Negative Negative 10/14/2023 6:12 PM EQUESTRIAN TRAINER LABORATORY SARS CoV2 PCR Negative Negative 10/14/2023 6:12 PM EQUESTRIAN TRAINER LABORATORY Comment:NEGATIVE: SARS-CoV-2 (COVID-19) RNA not detected, presumed negative. Swab NASOPHARYNGEAL STRUCTURE / Unknown Non-blood Collection / Unknown 10/14/2023 4:40 PM EQUESTRIAN TRAINER 10/14/2023 4:50 PM EQUESTRIAN TRAINER [facility] LABORATORY - 10/14/2023 6:12 PM EQUESTRIAN TRAINER Testing was performed using the Xpert Xpress CoV2/Flu/RSV Assay on the [employer] GeneXpert Instrument. This test should be ordered [...] management. This test was validated by the [facility] [place]. These laboratories are certified under the Clinical Laboratory Improvement Amendments of 1988 (CLIA-88) as qualified to perform high complexity laboratory testing. Dulce Fisher PA-C LAB - MICRO GENERAL ORDERABLES LABORATORY [facility] [address] 1st floor, [address] [place] [address], [facility] [phone] * (ABNORMAL) Troponin T, High Sensitivity (10/14/2023 2:57 PM EQUESTRIAN TRAINER) [facility] Troponin T, High Sensitivity 24(H) <=22 ng/L 10/14/2023 3:30 PM EQUESTRIAN TRAINER LABORATORY Comment: Either a High Sensitivity Troponin [...] Unknown Venipuncture / Unknown 10/14/2023 2:57 PM EQUESTRIAN TRAINER 10/14/2023 3:04 PM EQUESTRIAN TRAINER Dulce Fisher PA-C LAB - BLOOD ORDERABLES LABORATORY [facility] [address] 1[address], [address], [place] [address], [facility] [phone] * (ABNORMAL) Lactic Acid STAT (10/14/2023 2:57 PM EQUESTRIAN TRAINER) Lactic Acid 3.1(H) 0.7 - 2.0 mmol/L 10/14/2023 3:15 PM EQUESTRIAN TRAINER LABORATORY Blood BLOOD SPECIMEN / Unknown Venipuncture / Unknown 10/14/2023 2:57 PM EQUESTRIAN TRAINER 10/14/2023 3:04 PM EQUESTRIAN TRAINER Dulce Fisher PA-C LAB - BLOOD ORDERABLES LABORATORY [facility] [address] 1[address], [address] [place] [address], [place] [phone] * Blood Culture Hand, Right (10/14/2023 2:28 PM EQUESTRIAN TRAINER) Culture No Growth 10/19/2023 5:32 PM EQUESTRIAN TRAINER [facility] Blood STRUCTURE OF RIGHT HAND / Unknown Venipuncture / Unknown 10/14/2023 2:28 PM EQUESTRIAN TRAINER 10/14/2023 2:35 PM EQUESTRIAN TRAINER Narrative [facility] - 10/19/2023 5:32 PM EQUESTRIAN TRAINER Only an Aerobic Blood Culture Bottle was collected, interpret results with caution. Ilan Batres AB - MICRO GENERAL ORDERABLES Performing Organization Address City/[facility]/ZIP Co de Phone Number [facility] Inf. Diseases Diag. Lab [address] [facility], Room [place] [id number], [facility] [phone] * Blood Culture Hand, Left (10/14/2023 2:20 PM EQUESTRIAN TRAINER) Culture No Growth 10/19/2023 5:32 PM EQUESTRIAN TRAINER [facility] Blood STRUCTURE OF LEFT HAND / Unknown Venipuncture / Unknown 10/14/2023 2:20 PM EQUESTRIAN TRAINER 10/14/2023 2:35 PM EQUESTRIAN TRAINER Narrative [facility] - 10/19/2023 5:32 PM EQUESTRIAN TRAINER Only an Aerobic Blood Culture Bottle was collected, interpret results with caution. Ilan Batres AB - ViViFi GENERAL ORDERABLES Performing Organization Address [facility] Phone Number [facility] Inf. Diseases Diag. Lab [address] [facility], Room [address] [address], [facility] [phone] * Chest XR, PA & LAT (10/14/2023 1:12 PM EQUESTRIAN TRAINER) Anatomical Region Laterality Modality Chest Digital Radiogra phy Impressions 10/14/2023 6:08 PM EQUESTRIAN TRAINER IMPRESSION: New finding of small-moderate left pleural fluid. New consolidation or atelectasis at the left lung base. Obscured cardiac silhouette. Right lung appears clear. ELO DIETRICH MD SYSTEM ID: ??[id number] Narrative 10/14/2023 6:08 PM EQUESTRIAN TRAINER CHEST TWO VIEWS ??10/14/2023 1:12 PM HISTORY: Chest pain. COMPARISON: CT chest 08/16/2023. Procedure Note Elo Dietrich MD - 10/14/2023 CHEST TWO VIEWS 10/14/2023 1:12 PM HISTORY: Chest pain. COMPARISON: CT chest 08/16/2023. IMPRESSION: New finding of small-moderate left pleural fluid. New consolidation or atelectasis at the left lung base. Obscured cardiac silhouette. Right lung appears clear. ELO DIETRICH MD SYSTEM ID: [id number] Baldev Burton DO IMG DIAGNO STIC IMAGING ORDERABLES * (ABNORMAL) Hemoglobin A1c (10/14/2023 12:53 PM EQUESTRIAN TRAINER) Hemoglobin A1C 8.4(H) <5.7 % 10/14/2023 4:04 PM EQUESTRIAN TRAINER LABORATORY Comment: Normal <5.7% Prediabetes 5.7-6.4% ?? Diabetes 6.5% or higher Note: Adopted from ADA consensus guidelines. Blood STRUCTURE OF LEFT UPPER LIMB / Unknown Venipuncture / Unknown 10/14/2023 12:53 PM EQUESTRIAN TRAINER 10/14/2023 12:57 PM EQUESTRIAN TRAINER Dulce Fisher PA-C LAB - BLOOD ORDERABLES LABORATORY [facility] [address], [address] [place] [address], [facility] [phone] * Magnesium (10/14/2023 12:53 PM EQUESTRIAN TRAINER) Magnesium 1.8 1.7 - 2.3 mg/dL 10/14/2023 3:40 PM EQUESTRIAN TRAINER LABORATORY Blood STRUCTURE OF LEFT UPPER LIMB / Unknown Venipuncture / Unknown 10/14/2023 12:53 PM EQUESTRIAN TRAINER 10/14/2023 12:57 PM EQUESTRIAN TRAINER Dulce Fisher PA-C LAB - BLOOD ORDERABLES LABORATORY [facility] [address], [address] [place] [address], [facility] [phone] * Procalcitonin (10/14/2023 12:53 PM EQUESTRIAN TRAINER) [facility] Procalcitonin 0.07 <0.50 ng/mL 10/14/2023 2:31 PM EQUESTRIAN TRAINER LABORATORY Comment: Interpretation and Recommendations <0.5 ng/mL: Systemic bacterial infection unlikely. Local bacterial infection is possible. 0.5-1.99 ng/mL: Systemic bacterial infection possible, but various other conditions are known to induce PCT as well. >=2.00 ng/mL: Systemic bacterial infection likely, unless other causes are known. Decision to start antibiotics should not be based on procalcitonin level alone. See Procalcitonin Guidance document for more details. [email or web address] Factors that may affect PCT levels (not [...] Unknown Venipuncture / Unknown 10/14/2023 12:53 PM EQUESTRIAN TRAINER 10/14/2023 12:57 PM EQUESTRIAN TRAINER Dulce Fisher PA-C LAB - BLOOD ORDERABLES LABORATORY [facility] [address], [address] [place] [address], [facility] [phone] * Extra Blue Top Tube (10/14/2023 12:53 PM EQUESTRIAN TRAINER) Pathologist [facility] Hold Specimen JI 10/14/2023 2:04 PM EQUESTRIAN TRAINER LABORATORY Blood STRUCTURE OF LEFT UPPER LIMB / Unknown Venipuncture / Unknown 10/14/2023 12:53 PM EQUESTRIAN TRAINER 10/14/2023 12:57 PM EQUESTRIAN TRAINER Baldev Burton DO LAB - BLOO D ORDERABLES LABORATORY [facility] [address], [address] [place] [address], [facility] [phone] * (ABNORMAL) CBC with platelets and differential (10/14/2023 12:53 PM EQUESTRIAN TRAINER) [facility] WBC Count 18.5(H) 4.0 - 11.0 10e3/uL 10/14/2023 1:02 PM [facility] RBC Count 4.25(L) 4.40 - 5.90 10e6/uL 10/14/2023 1:02 PM [facility] Hemoglobin 13.1(L) 13.3 - 17.7 g/dL 10/14/2023 1:02 PM [facility] Hematocrit 40.0 40.0 - 53.0 % 10/14/2023 1:02 PM [facility] MCV 94 78 - 100 fL 10/14/2023 1:02 PM [facility] MCH 30.8 26.5 - 33.0 pg 10/14/2023 1:02 PM [facility] MCHC 32.8 31.5 - 36.5 g/dL 10/14/2023 1:02 PM [facility] RDW 12.7 10.0 - 15.0 % 10/14/2023 1:02 PM [facility] Platelet Count 574(H) 150 - 450 10e3/uL 10/14/2023 1:02 PM [facility] % Neutrophils 83 % 10/14/2023 1:02 PM EQUESTRIAN TRAINER LABORATORY % Lymphocytes 10 % 10/14/2023 1:02 PM EQUESTRIAN TRAINER LABORATORY % Monocytes 6 % 10/14/2023 1:02 PM [facility] % Eosinophils 0 % 10/14/2023 1:02 PM [facility] % Basophils 0 % 10/14/2023 1:02 PM EQUESTRIAN TRAINER LABORATORY % Immature Granulocytes 1 % 10/14/2023 1:02 PM [facility] NRBCs per 100 WBC 0 <1 /100 024 1:02 PM [facility] Absolute Neutrophils 15.2(H) 1.6 - 8.3 10e3/uL 10/14/2023 1:02 PM [facility] Absolute Lymphocytes 1.9 0.8 - 5.3 10e3/uL 10/14/2023 1:02 PM [facility] Absolute Monocytes 1.1 0.0 - 1.3 10e3/uL 10/14/2023 1:02 PM [facility] Absolute Eosinophils 0.0 0.0 - 0.7 10e3/uL 10/14/2023 1:02 PM [facility] Absolute Basophils 0.1 0.0 - 0.2 10e3/uL 10/14/2023 1:02 PM [facility] Absolute Immature Granulocytes 0.1 <=0.4 10e3/uL 10/14/2023 1:02 PM [facility] Absolute NRBCs 0.0 10e3/uL 10/14/2023 1:02 PM [facility] Blood STRUCTURE OF LEFT UPPER LIMB / Unknown Venipuncture / Unknown 10/14/2023 12:53 PM EQUESTRIAN TRAINER 10/14/2023 12:57 PM EQUESTRIAN TRAINER Baldev Burton DO LAB - BLOO D ORDERABLES LABORATORY [facility] [address] 1[address], [address] [place] [address], [facility] [phone] * (ABNORMAL) Troponin T, High Sensitivity (10/14/2023 12:53 PM EQUESTRIAN TRAINER) Troponin T, High Sensitivity 25(H) <=22 ng/L 10/14/2023 1:22 PM EQUESTRIAN TRAINER LABORATORY Comment: Either a High Sensitivity Troponin [...] Unknown Venipuncture / Unknown 10/14/2023 12:53 PM EQUESTRIAN TRAINER 10/14/2023 12:57 PM EQUESTRIAN TRAINER Baldev Burton DO LAB - BLOO D ORDERABLES LABORATORY [facility] [address], [address] [place] [address], [facility] [phone] * Lipase (10/14/2023 12:53 PM EQUESTRIAN TRAINER) Pathologist [facility] Lipase 60 13 - 60 U/L 10/14/2023 1:22 PM EQUESTRIAN TRAINER LABORATORY Blood STRUCTURE OF LEFT UPPER LIMB / Unknown Venipuncture / Unknown 10/14/2023 12:53 PM EQUESTRIAN TRAINER 10/14/2023 12:57 PM EQUESTRIAN TRAINER Baldev Burton DO LAB - BLOO D ORDERABLES LABORATORY [facility] [address], [address] [place] [address], [facility] [phone] * (ABNORMAL) Comprehensive metabolic panel (10/14/2023 12:53 PM EQUESTRIAN TRAINER) Sodium 134(L) 135 - 145 mmol/L 10/14/2023 1:22 PM [facility] Comment:Reference intervals for this test were updated on 05/28/2023 to more accurately reflect our healthy population. There may be differences in the flagging of prior results with similar values performed with this method. Interpretation of those prior results can be made in the context of the updated reference intervals. Potassium 4.0 3.4 - 5.3 mmol/L 10/14/2023 1:22 PM [facility] Carbon Dioxide (CO2) 29 22 - 29 mmol/L 10/14/2023 1:22 PM [facility] Anion Gap 12 7 - 15 mmol/L 10/14/2023 1:22 PM [facility] Urea Nitrogen 30.1(H) 8.0 - 23.0 mg/dL 10/14/2023 1:22 PM [facility] Creatinine 1.49(H) 0.67 - 1.17 mg/dL 10/14/2023 1:22 PM [facility] GFR Estimate 46(L) >60 mL/min/1. 73m2 10/14/2023 1:22 PM [facility] Calcium 9.2 8.8 - 10.2 mg/dL 10/14/2023 1:22 PM [facility] Chloride 93(L) 98 - 107 mmol/L 10/14/2023 1:22 PM [facility] Glucose 201(H) 70 - 99 mg/dL 10/14/2023 1:22 PM [facility] Alkaline Phosphatase 92 40 - 150 U/L 10/14/2023 1:22 PM [facility] Comment:Reference intervals for this test were updated on 07/16/2023 to more accurately reflect our healthy population. There may be differences in the flagging of prior results with similar values performed with this method. Interpretation of those prior results can be made in the context of the updated reference intervals. AST 65(H) 0 - 45 U/L 10/14/2023 1:22 PM [facility] Comment:Reference intervals for this test were updated on 02/11/2023 to more accurately reflect our healthy population. There may be differences in the flagging of prior results with similar values performed with this method. Interpretation of those prior results can be made in the context of the updated reference intervals. ALT 118(H) 0 - 70 U/L 10/14/2023 1:22 PM [facility] Comment:Reference intervals for this test were updated on 02/11/2023 to more accurately reflect our healthy population. There may be differences in the flagging of prior results with similar values performed with this method. Interpretation of those prior results can be made in the context of the updated reference intervals. Protein Total 6.9 6.4 - 8.3 g/dL 10/14/2023 1:22 PM [facility] Albumin 3.4(L) 3.5 - 5.2 g/dL 10/14/2023 1:22 PM [facility] Bilirubin Total 0.6 <=1.2 mg/dL 10/14/2023 1:22 PM [facility] Blood STRUCTURE OF LEFT UPPER LIMB / Unknown Venipuncture / Unknown 10/14/2023 12:53 PM EQUESTRIAN TRAINER 10/14/2023 12:[address] [facility] Baldev Burton DO LAB - BLOO D ORDERABLES LABORATORY [facility] [address], [address] [place] [address], [facility] [phone] * EKG 12 lead (10/14/2023 12:41 PM EQUESTRIAN TRAINER) Systolic Blood Pressure mmHg RADIOLOGY RESULTS Diastolic Blood Pressure mmHg RADIOLOGY RESULTS Ventricular Rate 103 BPM RAD IOLOGY RESULTS Atrial Rate BPM RADIOLOG Y RESULTS FL Interval ms RADIOLOG Y RESULTS QRS Duration 86 ms RADIOLO GY RESULTS QT 290 ms RADIOLOGY RESULTS QTc 379 ms RADIOLOGY RESULTS P [place] degrees RADIOLOGY RESULTS R AXIS -40 degrees RADIOLOGY RESULTS T [place] 100 degrees RADIOLOGY RESULTS Interpretation ECG Atrial [...] leads Confirmed by GENERATED REPORT, COMPUTER ([id number]), social media editor ESTEVAN MCDANIELS ([id number]) on 10/14/2023 3:56:41 PM RADIOLOGY RESULTS 10/14/2023 12:4 1 PM EQUESTRIAN TRAINER 10/14/2023 3:56 PM EQUESTRIAN TRAINER Baldev Burton DO ECG ORDERA BLES RADIOLOGY [...] exceed 4 grams/day. $Given 10/15/2023 7:36 PM EQUESTRIAN TRAINER 650 mg $Given 10/14/2023 6:17 PM EQUESTRIAN TRAINER 650 mg albuterol (PROVENTIL) neb solution 2.5 [...] Acquired Pneumonia $New Bag 10/15/2023 3:04 PM EQUESTRIAN TRAINER 250 mg cefTRIAXone (ROCEPHIN) 2 g vial [...] Acquired Pneumonia $New Bag 10/16/2023 2:13 PM EQUESTRIAN TRAINER 2 g $New Bag 10/15/2023 1:01 PM EQUESTRIAN TRAINER 2 g dextrose 50 % injection 25-50 [...] Sat10/14/23 at 2200 $Given 10/15/2023 9:31 PM EQUESTRIAN TRAINER 100 mg $Given 10/14/2023 10:09 PM EQUESTRIAN TRAINER 100 mg glucagon injection 1 mg 1 [...] of correction dose. $Given 10/15/2023 6:43 PM EQUESTRIAN TRAINER 2 Units insulin aspart (NovoLOG) injection (RAPID [...] of correction dose. $Given 10/15/2023 9:31 PM EQUESTRIAN TRAINER 1 Units $Given 10/14/2023 10:46 PM EQUESTRIAN TRAINER 1 Units insulin glargine (LANTUS PEN) injection 30 Units 30 Units, Subcutaneous, AT BEDTIME, First dose on Sat10/14/23 at 2200 $Given 10/15/2023 9:31 PM EQUESTRIAN TRAINER 30 Units $Given 10/14/2023 10:46 PM EQUESTRIAN TRAINER 30 Units losartan (COZAAR) tablet 100 mg 100 mg, Oral, DAILY WITH SUPPER, First dose on Sat10/14/23 at 1800, HOLD for SBP <110 $Given 10/15/2023 6:06 PM EQUESTRIAN TRAINER 10 0 mg $Given 10/14/2023 6:17 PM EQUESTRIAN TRAINER 100 mg melatonin tablet 5 mg 5 mg, Oral, AT BEDTIME PRN, sleep, Starting on Sat10/15/23 at 1859 metoprolol succinate ER (TOPROL XL) 24 hr tablet 25 mg 25 mg, Oral, DAILY, First dose on Sat10/15/23 at 1200, DO NOT CRUSH. Tablet may be split in half along score line. $Given 10/15/2023 1:01 PM EQUESTRIAN TRAINER 25 mg mirabegron (MYRBETRIQ) 24 hr tablet 50 mg 50 mg, Oral, DAILY, First dose on Sat10/14/23 at 1800, Do not chew, crush or split tablets. $Given 10/15/2023 6:0 6 PM EQUESTRIAN TRAINER 50 mg $Given 10/14/2023 6:17 PM EQUESTRIAN TRAINER 50 mg naloxone (NARCAN) injection 0.2 mg [...] Sat10/14/23 at 1912 $Given 10/14/2023 11:53 PM EQUESTRIAN TRAINER 0.4 m g ondansetron (ZOFRAN ODT) ODT [...] Indications: Afib-non valvular $Given 10/15/2023 6:06 PM EQUESTRIAN TRAINER 20 mg $Given 10/14/2023 7:54 PM EQUESTRIAN TRAINER 20 mg senna-docusate (SENOKOT-S/PERICOLACE) 8.6-50 MG per [...] for loose stools. $Given 10/15/2023 7:40 AM EQUESTRIAN TRAINER 1 tablet $Given 10/14/2023 7:54 PM EQUESTRIAN TRAINER 1 tablet senna-docusate (SENOKOT-S/PERICOLACE) 8.6-50 MG per [...] IV dormant line. Positive 10/16/2023 9:16 AM EQUESTRIAN TRAINER 3 mLs $Given 10/15/2023 6:43 PM EQUESTRIAN TRAINER 3 mLs $Given 10/15/2023 11:16 AM EQUESTRIAN TRAINER 3 mLs documented in this encounter Active and Recently Administered Medications Times are shown in EQUESTRIAN TRAINER. Scheduled Medication Order 10/14/2023 10/15/2023 10/16/2023 amLODIPine [...] stools. documented in this encounter Care Teams Quilt Sewer Relationship Specialty Start Date End Date Merrill Mejia MD [facility] [address] [place] [address] PCP - General Family Medicine 10/10/23 10/24/23 Nicanor Patel MD [address] [place] [address] Cardiovascular Disease 09/16/23 Nicanor Patel MD [address] [place] [address] Cardiovascular Disease 09/16/23 Nicanor Patel MD [address] [place] [address] Assigned Heart and Vascular Provider 09/26/23 documented as of this encounter
--- OUTSIDE RECORDS SUMMARY | 2024-01-13 09:49 | XMS_ITS | Encounter Summary ---
Author Name Unknown Organization [place] Address [facility] [place] [address] Care Team Providers Care Library Director Name Role Phone Nicanor Klein MD Unavailable Nicanor Klein MD Unavailable Nicanor Klein MD Unavailable Merrill Mejia MD Primary Care Provider [phone] Reason for Visit * Auth/Cert (Routine) Specialty Diagnoses / Procedures Referred By Noah t Referred To Contact Med Surg Diagnoses Weakness Hypoglycemia History of atrial fibrillation Episode of confusion Chest pain, unspecified type Community acquired pneumonia, unspecified laterality Chest pain, unspecified type Weakness History of atrial fibrillation Hypoglycemia Community acquired pneumonia, unspecified laterality Episode of confusion Short Stay [address] [facility] [place] [address] Referral ID Status Reason Start Date Expiration Date Visits Re quested Visits Authorized [id number] 1 1 Encounter Details Date Type Department Care Team (Late st Contact Info) Description 10/16/2023 8:27 AM STATION AGENT Anesthesia Event [facility] [address] [place] [address] Jez Su MD [facility] [address] [place] [address] [...] recorded are pre- induction. Nohemi Santana APRN PERSONNEL MANAGER 0829 An Induction 0830 Cardioversion 0832 An Stop Electronically signed by Nohemi Santana APRN CRNA on October 16, 2023 8:43 AM 0832 Quick Note Diagnosis: a-fi b. Procedure: Cardioversion. Carpet Cleaner: Dr. Ellis. Location: Care Suit[facility] [address]. 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 - Airway: [place] airway Consents Postoperative Care Comments: Jez Su [...] encounter: 95.7 kg (210 lb 14.4 oz). ION AGENT documented in this encounter Miscellaneous Notes * [...] APRN CRNA October 16, 2023 8:46 AM ION AGENT documented in this encounter Plan of Treatment Upcoming Encounters Date Type Department Care Team (Late st Contact Info) Description 05/14/2024 12:30 PM CDT Office Visit [facility] [address] [address] [place] [address] Gail Post MD [address] [place] [address] Anushka Carrasquillo MD [address] [facility] [address] [place] [address] documented as of this encounter Visit Diagnoses Not on filedocumented in this encounter Administered Medications Inactive Administered Medications - up to 3 most recent administrations Medication Order MAR Action Action Date Dose Rate Site propofol (DIPRIVAN) injection 10 mg/mL vial Intravenous, PRN, Starting on Sat10/16/23 at 0829, Anesthesia Intra-op $Given 10/16/2023 8:29 AM STATION AGENT 50 mg documented in this encounter Care Teams Library Director Relationship Specialty Start Date End Date Merrill Mejia MD [facility] [address] [place] [address] PCP - General Family Medicine 10/10/23 10/24/23 Nicanor Klein MD [address] [facility] [address] [place] [id number] Cardiovascular Disease 09/16/23 Nicanor Klein MD [address] [place] [address] Cardiovascular Disease 09/16/23 Nicanor Klein MD [address] [facility] [address] [place] [id number] Assigned Heart and Vascular Provider 09/26/23 documented as of this encounter
--- OUTSIDE RECORDS SUMMARY | 2024-01-13 09:49 | XMS_ITS | Referral Summary ---
Author Name Unknown Organization Early Address [address] [facility] [place] [address] Care Team Providers Care Mess Attendant Crew Name Role Phone Shaneka Patel MD Unavailable Shaneka Patel MD Unavailable Shaneka Patel MD Unavailable Merrill Mejia MD Primary Care Provider [phone] Encounters Date Type Department Care Team Description 11/01/2023 Transcribe Orders GENERIC EXTERNAL DATA DEPARTMENT Provider, Generic External Data Other specified diabetes mellitus without complications (H) (Primary Dx); Type 2 diabetes mellitus without complications (H); Type 2 diabetes mellitus with diabetic neuropathy, unspecified (H) 10/30/2023 Medical Correspondence [facility] [address] [place] [address] Scan, Non-Provider 10/16/2023 8:27 AM MOLD CLOSER Anesthesia Event [facility] Per[facility] [address] [place] [phone] Jez Su MD 10/16/2023 8:20 AM MOLD CLOSER - 10/16/2023 8:35 AM MOLD CLOSER Surgery [facility] [address] [place] [address] Carter Ellis MD Anesthesia cardioversion 10/16/2023 11:59 PM MOLD CLOSER Anesthesia Event [facility] Care Suites [address] [phone] Jez Su MD 10/14/2023 12:37 PM MOLD CLOSER - 10/16/2023 4:33 PM MOLD CLOSER Hospital Encounter [facility] Extended Recovery and Short Stay [address] [facility] [place] [phone] Ilan Alves MD Nistor, Doina Simona, MD Type 2 diabetes mellitus with stage 3b chronic kidney disease, with long-term current use of insulin (H) (Primary Dx); Hypoglycemia; Community acquired pneumonia, unspecified laterality; Episode of confusion; Chest pain, unspecified type; Weakness; History of atrial fibrillation; Calcification of coronary artery Discharge Disposition: Home-Health Care Sv 10/15/2023 10:30 AM MOLD CLOSER - 10/15/2023 10:45 AM [facility] Surgery [facility] [address] [place] [phone] GENERIC ANESTHESIA PROVIDER cardioversion from Last 3 Months Allergies Active Allergy [...] Sex Assigned at Male 09/28/2023 2:19 PM MOLD CLOSER Gender Identity Male 09/28/2023 2:19 PM MOLD CLOSER Sexual Orientation Straight 09/28/2023 2: 19 PM MOLD CLOSER Last Filed Vital Signs Vital Sign Reading Time Taken Comments Blood Pressure 118/73 10/16/2023 10:04 AM MOLD CLOSER Pulse 87 10/16/2023 10:04 AM MOLD CLOSER Temperature 36.3 ??C (97.4 ??F) 10/16/2023 1 0:04 AM MOLD CLOSER Respiratory Rate 18 10/16/2023 10:0 4 AM MOLD CLOSER Oxygen Saturation 98% 10/16/2023 10: 04 AM MOLD CLOSER Inhaled Oxygen Concentration - - Weight 95.7 kg (210 lb 14.4 oz) 10/16/2023 3:58 AM MOLD CLOSER Height 185.4 cm (6' 1) 10/14/2023 5:59 PM MOLD CLOSER Body Mass Index 27.82 10/14/2023 5:59 PM MOLD CLOSER Plan of Treatment Upcoming Encounters Date Type Department Care Team (Late st Contact Info) Description 05/14/2024 12:30 PM CDT Office Visit [facility] [address] [place] [address] Gail Post MD [address] [phone] Anushka Carrasquillo MD [address] [place] [address] Procedures Procedure Name Priority Date/Time Associated Diagnosis Comments HOLTER MONITOR 48 HOUR APPLICATION SCAN ANALYSIS AND PROVIDER INTERPRETATION Routine 10/16/2023 7:05 PM MOLD CLOSER GLUCOSE BY METER Routine 10/16/2023 12:0 6 PM MOLD CLOSER HEPATITIS A ANTIBODY IGM Routine 10/16/2023 10:22 AM MOLD CLOSER EKG 12-LEAD, TRACING ONLY Routine 10/16/2023 10:04 AM MOLD CLOSER US ABDOMEN LIMITED Routine 10/16/2023 9: 36 AM MOLD CLOSER CARDIOVERSION EXTERNAL Routine 8:35 AM MOLD CLOSER ANESTHESIA, FOR CARDIOVERSION 10/16/2023 8:20 AM MOLD CLOSER Chronic atrial fibrillation (H) GLUCOSE BY METER Routine 10/16/2023 7:29 AM MOLD CLOSER EKG 12-LEAD, TRACING ONLY STAT 10/16/2023 7:11 AM MOLD CLOSER HEPATITIS C ANTIBODY Add-On 10/16/2023 6:08 AM MOLD CLOSER HEPATITIS B SURFACE ANTIGEN Add-On 10/16/2023 6:08 AM MOLD CLOSER MAGNESIUM STAT 10/16/2023 6:08 AM MOLD CLOSER INR STAT 10/16/2023 6:08 AM MOLD CLOSER COMPREHENSIVE METABOLIC PANEL STAT 10/16/2023 6:08 AM MOLD CLOSER CBC WITH PLATELETS Routine 10/16/2023 6: 08 AM MOLD CLOSER GLUCOSE BY METER Routine 10/16/2023 1:10 AM MOLD CLOSER GLUCOSE BY METER Routine 10/15/2023 9:26 PM MOLD CLOSER GLUCOSE BY METER Routine 10/15/2023 5:29 PM MOLD CLOSER GLUCOSE BY METER Routine 10/15/2023 12:0 1 PM MOLD CLOSER XR CHEST 2 VIEWS Routine 10/15/2023 8:09 AM MOLD CLOSER GLUCOSE BY METER Routine 10/15/2023 7:39 AM MOLD CLOSER LIPID REFLEX TO DIRECT LDL PANEL Routine 10/15/2023 7:15 AM MOLD CLOSER TROPONIN T, HIGH SENSITIVITY Routine 10/15/2023 7:15 AM MOLD CLOSER CBC WITH PLATELETS Routine 10/15/2023 7: 15 AM MOLD CLOSER COMPREHENSIVE METABOLIC PANEL Routine 10/15/2023 7:15 AM MOLD CLOSER GLUCOSE BY METER Routine 10/15/2023 2:13 AM MOLD CLOSER HEMOGLOBIN A1C Add-On 10/14/2023 12:53 PM MOLD CLOSER from Last 3 Months or Most Recently Relevant to Health Maintenance Results * HOLTER MONITOR 48 HOUR APPLICATION SCAN ANALYSIS AND PROVIDER INTERPRETATION (10/16/2023 7:05 PM MOLD CLOSER) Anatomical Region Laterality Modality Other 10/16/2023 4:17 PM MOLD CLOSER 10/21/2023 6:00 PM MOLD CLOSER Narrative 10/21/2023 6:00 PM MOLD CLOSER Kamron De León was monitored for 48 hours. Quality of the tracing was good. Predominant rhythm was Atrial fibrillation ??(61% of the recording). Average HR was 112 bpm, maximum HR was 163 bpm at 12:42 PM (Day 1), minimum HR was 74 bpm at 6:18 AM ??(Day 1). NV interval measured 0.17 seconds, QRS duration 0.09 seconds, QT interval 0.297-0.336 seconds. There were zero pauses over 2.0 seconds. 2. There were 7,774 ventricular ectopic beats (3% [place]), 7,187 of these were isolated PVCs. There were 269 couplets and 15 ??triplets. There was one 4 beat ventricular run with a rate of 176 bpm at 6:15 PM (Day 2). 3. There were 8,313 supraventricular ectopic beats (3% [place]), 6,963 of these were isolated PACs. There [...] were noted. 10/19/2023 Confirmed by SHANEKA PATEL ([id number]) on 10/21/2023 6:00:23 PM Procedure Note Shaneka Patel MD - 10/21/2023 1. Ilan De León was monitored for 48 hours. Quality of the tracingwas good. Predominant rhythm was Atrial fibrillation (61% of therecording). Average HR was 112 bpm, maximum HR was 163 bpm at 12:42 PM (Day 1),minimum HR was 74 bpm at 6:18 AM (Day 1). NV interval measured 0.17seconds, QRS duration 0.09 seconds, QT interval 0.297-0.336 seconds. There were zero pauses over 2.0 seconds. 2. There were 7,774 ventricular ectopic beats (3% [place]), 7,187 of thesewere isolated PVCs. There were 269 couplets and 15 triplets. There wasone 4 beat ventricular run with a rate of 176 bpm at 6:15 PM (Day 2). 3. There were 8,313 supraventricular ectopic beats (3% [place]), 6,963 ofthese were isolated PACs. There were [...] were noted. 10/19/2023 Confirmed by SHANEKA PATEL ([id number]) on 10/21/2023 6:00:23 PM Merlyn Lyon [facility] CARDIAC SERVICES ORDERABLES * (ABNORMAL) Glucose by meter (10/16/2023 12:06 PM MOLD CLOSER) Only the most recent of8 resultswithin the time period is included. GLUCOSE BY METER POCT 154(H) 70 - 99 mg/dL 10/16/2023 12:16 PM MOLD CLOSER LABORATORY POC Blood, Capillary BLOOD SPECIMEN / Unknown 10/16/2023 12:06 PM MOLD CLOSER 10/16/2023 12:16 PM MOLD CLOSER Michelle TONEY - BEAKER POCT LABORATORY POC [facility] Acute Care Lab [address] 1[address] floor, [address] [place] [address], [place] [phone] * Hepatitis A antibody IgM (10/16/2023 10:22 AM MOLD CLOSER) [facility] Hepatitis A Antibody IgM Nonreactive Nonreactive 10/16/2023 3:37 PM MOLD CLOSER U LABORATORY Comment:Nonreactive results indicate either inadequate or delayed anti-HAV IgM response after known exposure to HAV or absence of acute or recent hepatitis A. Blood STRUCTURE OF RIGHT UPPER LIMB / Unknown Venipuncture / Unknown 10/16/2023 10:22 AM MOLD CLOSER 10/16/2023 10:27 AM MOLD CLOSER Gail Post MD LAB - BLOOD ORDERABL ES LABORATORY [facility] [place] [facility] [address] [facility], [address] [place] [address], [place] [phone] * EKG 12-lead, tracing only (10/16/2023 10:04 AM MOLD CLOSER) Only the most recent of2 resultswithin the time period is included. Systolic Blood Pressure mmHg RADIOLOGY RESULTS Diastolic Blood Pressure mmHg RADIOLOGY RESULTS Ventricular Rate 91 BPM RAD IOLOGY RESULTS Atrial Rate 91 BPM RADIOLOG Y RESULTS NV Interval 182 ms RADIOLOG Y RESULTS QRS Duration 80 ms RADIOLO GY RESULTS QT 330 ms RADIOLOGY RESULTS QTc 405 ms RADIOLOGY RESULTS P [place] 74 degrees RADIOLOGY RESULTS R AXIS 19 degrees RADIOLOGY RESULTS T [place] 213 degrees RADIOLOGY RESULTS Interpretation ECG Sinus rhythm with occasional Premature ventricular complexes and Premature atrial complexes Cannot rule out Anterior infarct , age undetermined Abnormal ECG When compared with ECG of 16-OCT-2023 07:11, (unconfirmed) Sinus rhythm has replaced Atrial fibrillation Confirmed by MD ISAAC, JULIEN ([id number]), associate editor Cole Pool ([id number]) on 10/18/2023 7:58:52 AM RADIOLOGY RESULTS 10/16/2023 10:0 4 AM MOLD CLOSER 10/18/2023 7:58 AM MOLD CLOSER Carter Ellis MD ECG ORDERABLES RADIOLOGY RESULTS * US Abdomen Limited (10/16/2023 9:36 AM MOLD CLOSER) Anatomical Region Laterality Modality Abdomen/Pelvis Ultrasound Impressions 10/16/2023 10:25 AM MOLD CLOSER IMPRESSION: 1. ??Hepatic steatosis, similar to previous. TRAVON HARRIS MD Narrative 10/16/2023 10:25 AM MOLD CLOSER US ABDOMEN LIMITED 10/16/2023 9:36 AM CLINICAL [...] ORDERABLES * CARDIOVERSION EXTERNAL (10/16/2023 8:35 AM MOLD CLOSER) Anatomical Region Laterality Modality Other Narrative 10/16/2023 8:35 AM MOLD CLOSER Carter Ellis MD ? 10/16/2023 ??9:05 AM [facility] Procedure: EP Cardioversion External Date/Time: 10/16/2023 [...] procedure a time out was called ?? [place] Protocol: the Joint Commission [place] Protocol was followed ?? Preparation: Patient was [...] ORDERABLES * (ABNORMAL) INR (10/16/2023 6:08 AM MOLD CLOSER) [facility] INR 3.26(H) 0.85 - 1.15 10/16/2023 6:45 AM MOLD CLOSER LABORATORY Blood STRUCTURE OF RIGHT HAND / Unknown Venipuncture / Unknown 10/16/2023 6:08 AM MOLD CLOSER 10/16/2023 6:16 AM MOLD CLOSER Merlyn Lyon CNP LAB - BLOOD ORDERAB LES LABORATORY [facility] Lab [address] 1[address], [address] [place] [address], [facility] [phone] * Magnesium (10/16/2023 6:08 AM MOLD CLOSER) [facility] Magnesium 1.9 1.7 - 2.3 mg/dL 10/16/2023 6:42 AM MOLD CLOSER LABORATORY Blood STRUCTURE OF RIGHT HAND / Unknown Venipuncture / Unknown 10/16/2023 6:08 AM MOLD CLOSER 10/16/2023 6:16 AM MOLD CLOSER Merlyn Lyon CNP LAB - BLOOD ORDERAB LES [facility] Lab [address], [address], [place] [address], [facility] [phone] * Hepatitis C antibody (10/16/2023 6:08 AM MOLD CLOSER) [facility] Hepatitis C Antibody Nonreactive Nonreactive 10/16/2023 3:31 PM MOLD CLOSER [facility]ATORY Comment:A nonreactive screen ing test [...] Unknown Venipuncture / Unknown 10/16/2023 6:08 AM MOLD CLOSER 10/16/2023 6:16 AM MOLD CLOSER Gail Post MD LAB - BLOOD ORDERABL ES LABORATORY [facility] [place] [facility] [address], [address] [address], [facility] [phone] * Hepatitis B surface antigen (10/16/2023 6:08 AM MOLD CLOSER) Hepatitis B Surface Antigen Nonreactive Nonreactive 10/16/2023 3:31 PM MOLD CLOSER LABORATORY Blood STRUCTURE OF RIGHT HAND / Unknown Venipuncture / Unknown 10/16/2023 6:08 AM MOLD CLOSER 10/16/2023 6:16 AM MOLD CLOSER Gail Post MD LAB - BLOOD ORDERABL ES Performing Organization Address City/[facility] Co de Phone Number LABORATORY [facility] [place] [facility] [address], [address] [address], [facility] [phone] * (ABNORMAL) Comprehensive metabolic panel (10/16/2023 6:08 AM MOLD CLOSER) Only the most recent of2 resultswithin the time period is included. Pathologist [facility] Sodium 141 135 - 145 mmol/L 10/16/2023 6:42 AM [facility] Comment:Reference intervals for this test were updated on 05/28/2023 to more accurately reflect our healthy population. There may be differences in the flagging of prior results with similar values performed with this method. Interpretation of those prior results can be made in the context of the updated reference intervals. Potassium 3.9 3.4 - 5.3 mmol/L 10/16/2023 6:42 AM [facility] Carbon Dioxide (CO2) 27 22 - 29 mmol/L 10/16/2023 6:42 AM [facility] Anion Gap 11 7 - 15 mmol/L 10/16/2023 6:42 AM [facility] Urea Nitrogen 27.2(H) 8.0 - 23.0 mg/dL 10/16/2023 6:42 AM [facility] Creatinine 1.38(H) 0.67 - 1.17 mg/dL 10/16/2023 6:42 AM [facility] GFR Estimate 51(L) >60 mL/min/1. 73m2 10/16/2023 6:42 AM [facility] Calcium 9.1 8.8 - 10.2 mg/dL 10/16/2023 6:42 AM [facility] Chloride 103 98 - 107 mmol/L 10/16/2023 6:42 AM [facility] Glucose 135(H) 70 - 99 mg/dL 10/16/2023 6:42 AM [facility] Alkaline Phosphatase 107 40 - 150 U/L 10/16/2023 6:42 AM [facility] Comment:Reference intervals for this test were updated on 07/16/2023 to more accurately reflect our healthy population. There may be differences in the flagging of prior results with similar values performed with this method. Interpretation of those prior results can be made in the context of the updated reference intervals. AST 193(H) 0 - 45 U/L 10/16/2023 6:42 AM [facility] Comment:Reference intervals for this test were updated on 02/11/2023 to more accurately reflect our healthy population. There may be differences in the flagging of prior results with similar values performed with this method. Interpretation of those prior results can be made in the context of the updated reference intervals. ALT 240(H) 0 - 70 U/L 10/16/2023 6:42 AM [facility] Comment:Reference intervals for this test were updated on 02/11/2023 to more accurately reflect our healthy population. There may be differences in the flagging of prior results with similar values performed with this method. Interpretation of those prior results can be made in the context of the updated reference intervals. Protein Total 6.4 6.4 - 8.3 g/dL 10/16/2023 6:42 AM [facility] Albumin 2.9(L) 3.5 - 5.2 g/dL 10/16/2023 6:42 AM [facility] Bilirubin Total 0.3 <=1.2 mg/dL 10/16/2023 6:42 AM [facility] Blood STRUCTURE OF RIGHT HAND / Unknown Venipuncture / Unknown 10/16/2023 6:08 AM MOLD CLOSER 10/16/2023 6:16 AM MOLD CLOSER Bacilio Steele MD LAB - BLOOD OR DERABLES LABORATORY [facility] Lab [address], [address] [place] [address], [facility] [phone] * (ABNORMAL) CBC with platelets (10/16/2023 6:08 AM MOLD CLOSER) Only the most recent of2 resultswithin the time period is included. [facility] WBC Count 10.7 4.0 - 11.0 10e3/uL 10/16/2023 6:22 AM [facility] RBC Count 4.08(L) 4.40 - 5.90 10e6/uL 10/16/2023 6:22 AM [facility] Hemoglobin 12.6(L) 13.3 - 17.7 g/dL 10/16/2023 6:22 AM [facility] Hematocrit 38.5(L) 40.0 - 53.0 % 10/16/2023 6:22 AM [facility] MCV 94 78 - 100 fL 10/16/2023 6:22 AM [facility] MCH 30.9 26.5 - 33.0 pg 10/16/2023 6:22 AM [facility] MCHC 32.7 31.5 - 36.5 g/dL 10/16/2023 6:22 AM [facility] RDW 12.8 10.0 - 15.0 % 10/16/2023 6:22 AM [facility] Platelet Count 493(H) 150 - 450 10e3/uL 10/16/2023 6:22 AM [facility] Blood STRUCTURE OF RIGHT HAND / Unknown Venipuncture / Unknown 10/16/2023 6:08 AM MOLD CLOSER 10/16/2023 6:16 AM MOLD CLOSER Bacilio Steele MD LAB - BLOOD OR DERABLES LABORATORY [facility] Lab [address] 1[address], [address] [place] [address], [facility] [phone] * XR Chest 2 Views (10/15/2023 8:09 AM MOLD CLOSER) Anatomical Region Laterality Modality Chest Digital Radiogra phy Impressions 10/15/2023 9:13 AM MOLD CLOSER IMPRESSION: Stable cardiac silhouette which is partially obscured. Similar opacification of the left lung base which is favored secondary to a moderate-sized left pleural effusion with underlying consolidation not excluded. Similar calcified granuloma of the right lung base. No discernible pneumothorax. No acute displaced fracture. PRECIOUS YOON MD Narrative 10/15/2023 9:13 AM MOLD CLOSER CHEST TWO VIEWS 10/15/2023 8:09 AM HISTORY: [...] Troponin T, High Sensitivity (10/15/2023 7:15 AM MOLD CLOSER) Pathologist [facility] Troponin T, High Sensitivity 30(H) <=22 ng/L 10/15/2023 8:11 AM MOLD CLOSER LABORATORY Comment: Either a High Sensitivity Troponin [...] Unknown Venipuncture / Unknown 10/15/2023 7:15 AM MOLD CLOSER 10/15/2023 7:39 AM MOLD CLOSER Dulce Fisher PA-C LAB - BLOOD ORDERABLES LABORATORY [facility] Acute Care Lab [address], [address] [place] [address], [facility] [phone] * (ABNORMAL) Lipid panel reflex to direct LDL (10/15/2023 7:15 AM MOLD CLOSER) Cholesterol 66 <200 mg/dL 10/15/2023 11:29 AM MOLD CLOSER [facility] Triglycerides 65 <150 mg/dL 10/15/2023 11:29 AM MOLD CLOSER [facility] Direct Measure HDL 26(L) >=40 mg/dL 2023 11:29 AM MOLD CLOSER [facility] LDL Cholesterol Calculated 27 <=100 mg/dL 10/15/2023 11:29 AM MOLD CLOSER [facility] Non HDL Cholesterol 40 <130 mg/dL 10/15/2023 11:29 AM MOLD CLOSER [facility] Patient Fasting > 8hrs? Yes 10/15/2023 11:29 AM MOLD CLOSER LABORATORY Blood STRUCTURE OF RIGHT UPPER LIMB / Unknown Venipuncture / Unknown 10/15/2023 7:15 AM MOLD CLOSER 10/15/2023 7:39 AM MOLD CLOSER Narrative [facility] - 10/15/2023 11:29 AM MOLD CLOSER Cholesterol Desirable: ??<200 mg/dL Triglycerides Normal: ??Less [...] Fisher PA-C LAB - BLOOD ORDERABLES LABORATORY [facility] [place] [facility] [address] [facility], [address] [place] [address], [place] [phone] LABORATORY [facility] Lab [address] 1[address], [address] [place] [address], [place] [phone] * (ABNORMAL) Hemoglobin A1c (10/14/2023 12:53 PM MOLD CLOSER) Hemoglobin A1C 8.4(H) <5.7 % 10/14/2023 4:04 PM MOLD CLOSER LABORATORY Comment: Normal <5.7% Prediabetes 5.7-6.4% ?? Diabetes 6.5% or higher Note: Adopted from ADA consensus guidelines. Blood STRUCTURE OF LEFT UPPER LIMB / Unknown Venipuncture / Unknown 10/14/2023 12:53 PM MOLD CLOSER 10/14/2023 12:57 PM MOLD CLOSER Dulce Fisher PA-C LAB - BLOOD ORDERABLES LABORATORY [facility] Lab [address], [address] [place] [address], [place] [phone] from Last 3 Months or Most Recently Relevant to Health Maintenance Advance Directives For more information, please contact: [phone] * Full Code (Latest Code Status on [...] 6:11 PM 08/26/2015 8:28 AM Care Teams Mess Attendant Crew Relationship Specialty Start Date End Date Merrill Mejia MD [address] [place] [id number] PCP - General Family Medicine 10/25/23 Shaneka Patel MD [address] [address] Cardiovascular Disease 09/16/23 Shaneka Patel MD [address] [place] [address] Cardiovascular Disease 09/16/23 Shaneka Patel MD [address] [place] [address] Assigned Heart and Vascular Provider 09/26/23
--- OUTSIDE RECORDS SUMMARY | 2024-01-13 09:49 | XMS_ITS | Encounter Summary ---
Author Name Unknown Organization [facility] Address [address] [place] [address] Care Team Providers Care Rehabilitation Counselor Name Role Phone Nicanor Klein MD Unavailable Nicanor Klein MD Unavailable Nicanor Klein MD Unavailable Merrill Mejia MD Primary Care Provider [phone] Reason for Referral * Consultation (Priority: 1-2 Weeks) - Pending Review Specialty Diagnoses / Procedures Referred By Noah t Referred To Contact Diabetes Education Diagnoses Other specified diabetes mellitus without complications (H) Type 2 diabetes mellitus without complications (H) Type 2 diabetes mellitus with diabetic neuropathy, unspecified (H) Merrill Mejia MD [facility] [address] [address] Referral ID Status Reason Start Date Expiration Date V isits Requested Visits Authorized [id number] Pending Review 11/01/2023 10/31/2024 1 1 Question [...] class available within 2 months Scheduling Instructions: [facility] will call you to coordinate your care as prescribed by your provider. If you don't hear from a new accounts representative within 2 business days, please call Comments Referral Transcribed by external fax Provider: Dr. Merrill Mejia affiliated with [facility]. VA: No If yes was is the VA Authorization Number: Phone number: [phone] Fax number: not listed Medicare covers 10 [...] and G0109) and Medical Nutrition Therapy (Codes 69610 and 38069) benefits and ask which blood glucose monitor brands are covered by your plan. Please bring the following with you to your appointment: 1. List of current medications 2. List of Blood Glucose Monitor brands that are covered by your insurance plan 3. Blood Glucose Monitor and log book 4. Food records for the 3 days prior to your visit [facility] will call you to coordinate your care as prescribed by your provider. If you don't hear from a new accounts representative within 2 business days, please call ARIAL TECHNICIAN Encounter Details Date Type Department Care Team [...] Sex Assigned at Male 09/28/2023 2:19 PM ACTUARIAL TECHNICIAN Gender Identity Male 09/28/2023 2:19 PM ACTUARIAL TECHNICIAN Sexual Orientation Straight 09/28/2023 2: 19 PM ACTUARIAL TECHNICIAN documented as of this encounter Plan of Treatment Upcoming Encounters Date Type Department Care Team (Late st Contact Info) Description 05/14/2024 12:30 PM CDT Office Visit [facility] [address] [place] [address] Gail Post MD [address] [phone] Anushka Carrasquillo MD [address] [place] [address] Scheduled Referrals Name Type Priority Associated Diagnoses Orde r Schedule Adult Diabetes Education Heavy Threader Referral Referral Priority: 1-2 Weeks Other specified [...] (H) documented in this encounter Care Teams Rehabilitation Counselor Relationship Specialty Start Date End Date Merrill Mejia MD [address] [place] [id number] PCP - General Family Medicine 10/25/23 Nicanor Klein MD [address] [place] [id number] Cardiovascular Disease 09/16/23 Nicanor Klein MD [address] [place] [address] Cardiovascular Disease 09/16/23 Nicanor Klein MD [address] [place] [address] Assigned Heart and Vascular Provider 09/26/23 documented as of this encounter
--- OUTSIDE RECORDS SUMMARY | 2024-01-13 09:49 | XMS_ITS | Encounter Summary ---
Author Name Unknown Organization [facility] Address [facility] [place] [address] Care Team Providers Care Drywall Application Supervisor Name Role Phone Nicanor Klein MD Unavailable Nicanor Klein MD Unavailable Nicanor Klein MD Unavailable Merrill Mejia MD Primary Care Provider [phone] Encounter Details Date Type Department Care Team (Late st Contact Info) Description 10/16/2023 11:59 PM MOLD PARTER Anesthesia Event [facility] [address] [phone] Jez Su MD [facility] [address] [id number] Anesthesia Record Procedure Summary Procedure Name Responsible [...] Assigned at Male 09/28/2023 2:19 PM MOLD PARTER Gender Identity Male 09/28/2023 2:19 PM MOLD PARTER Sexual Orientation Straight 09/28/2023 2: 19 PM MOLD PARTER documented as of this encounter Plan of Treatment Upcoming Encounters Date Type Department Care Team (Late st Contact Info) Description 05/14/2024 12:30 PM CDT Office Visit [facility] [address] [place] [phone] Gail Post MD [address] [place] [address] Anushka Carrasquillo MD [address] [place] [address] documented as of this encounter Visit Diagnoses Not on filedocumented in this encounter Care Teams Drywall Application Supervisor Relationship Specialty Start Date End Date Merrill Mejia MD [facility] [address] [phone] PCP - General Family Medicine 10/10/23 10/24/23 Nicanor Klein MD [address] [place] [address] Cardiovascular Disease 09/16/23 Nicanor Klein MD [address] [place] [address] Cardiovascular Disease 09/16/23 Nicanor Klein MD [address] [place] [address] Assigned Heart and Vascular Provider 09/26/23 documented as of this encounter
--- OUTSIDE RECORDS SUMMARY | 2024-01-13 09:49 | XMS_ITS | Encounter Summary ---
Author Name Unknown Organization [place] Address [address] [facility] [place] [address] Care Team Providers Care Organic Search Lead Name Role Phone Nicanor Klein MD Unavailable Nicanor Klein MD Unavailable Nicanor Klein MD Unavailable Merrill Mejia MD Primary Care Provider [phone] Encounter Details Date Type Department Care Team (Late st Contact Info) Description 10/30/2023 Medical Correspondence [facility] [address] [place] [address] Scan, Non-Provider Social History Tobacco Use Types Packs/Day Years Used Date Smoking Tobacco: Never Alcohol Use Standard Drinks/Week Comments Yes 0 (1 standard drink = 0.6 oz pur e alcohol) Adolescent Education Answer Date Record ed Getting School Help Needed Not on file 06/09 Sex and Gender Information Value Date Recorded Sex Assigned at Male 09/28/2023 2:19 PM [employer] Gender Identity Male 09/28/2023 2:19 PM [employer] Sexual Orientation Straight 09/28/2023 2: 19 PM [employer] documented as of this encounter Plan of Treatment Upcoming Encounters Date Type Department Care Team (Late st Contact Info) Description 05/14/2024 12:30 PM CDT Office Visit [facility] [address] [place] [phone] Gail Post MD [address] [id number] Anushka Carrasquillo MD [address] [place], [place] [address] documented as of this encounter Visit Diagnoses Not on filedocumented in this encounter Care Teams Organic Search Lead Relationship Specialty Start Date End Date Merrill Mejia MD [address] [id number] PCP - General Family Medicine 10/25/23 Nicanor Klein MD [address] [place] [address] Cardiovascular Disease 09/16/23 Nicanor Klein MD [address] [place] [id number] Cardiovascular Disease 09/16/23 Nicanor Klein MD [address] [place] [address] Assigned Heart and Vascular Provider 09/26/23 documented as of this encounter
--- OUTSIDE RECORDS SUMMARY | 2024-01-13 09:50 | XMS_ITS | Encounter Summary ---
Author Name Unknown Organization Alpha Address [facility]0 [facility] [place] [address] Care Team Providers Care Momd Teacher Name Role Phone Nicanor Patel MD Unavailable Nicanor Patel MD Unavailable Nicanor Patel MD Unavailable Merrill Mejia MD Primary Care Provider [phone] Reason for Referral * Home Health Therapies & Aides (Routine: Next available opening) - Pending Review Specialty Diagnoses / Procedures Referred By Contalex t Referred To Contact Diagnoses Community acquired pneumonia, unspecified laterality Episode of confusion Gail Post MD [address] [facility] [place] [address] Referral ID Status Reason Start Date Expiration Date V isits Requested Visits Authorized [id number] Pending Review 10/16/2023 10/15/2024 1 1 Question Answer Reason for Referral: Snf, Physical Therapy Physical Therapy Eval and Treat for: Home Safety Assessment Snf Eval and Treat for: Disease management Additional [...] 10/16/2023 Provider to follow patient MERRILL MEJIA [[id number]] Comments Your provider has ordered home health services. If you have not been contacted within 2 days of your discharge please call the selected Home Care agency listed on your Discharge document. If a Home Care agency is NOT listed, please call [phone]. S PROCESS MANAGER * Consultation (Routine: Next available opening) - Pending Review Specialty Diagnoses / Procedures Referred By Noah ng Referred To Contact Endocrinology, Diabetes, and Metabolism Diagnoses Type 2 diabetes mellitus with stage 3b chronic kidney disease, with long-term current use of insulin (H) Gail Post MD [address] [place] [address] Referral ID Status Reason Start Date Expiration Date V isits Requested Visits Authorized [id number] Pending Review 10/16/2023 10/15/2024 1 1 Question Answer Reason for Referral: Diabetes Diabetes State: Type 2 Scheduling Instructions: [employer] will call you to coordinate your care as prescribed by the provider. If you don? t hear from a loan representative within 2 business days, please call [phone]. Comments Please be aware that coverage of these services is subject to the terms and limitations of your health insurance plan. Call member services at your health plan with any benefit or coverage questions. [employer] will call you to coordinate your care as prescribed by the provider. If you don? t hear from a loan representative within 2 business days, please call [phone]. S PROCESS MANAGER Reason for Visit * Reason Comments Irregular [...] unspecified laterality Episode of confusion Short Stay [address] [address] Referral ID Status Reason Start Date Expiration Date Visits Re quested Visits Authorized [id number] 1 1 Encounter Details Date Type Department Care Team (Late st Contact Info) Description 10/14/2023 12:37 PM SALES PROCESS MANAGER - 10/16/2023 4:33 PM SALES PROCESS MANAGER Hospital Encounter [facility] Extended Recovery and Short Stay [address] [place] [id number] Ilan Alves MD [facility] [address] [place] [id number] Michelle Eckert MD [address] [place] [address] Type 2 diabetes mellitus with stage [...] Sex Assigned at Male 09/28/2023 2:19 PM SALES PROCESS MANAGER Gender Identity Male 09/28/2023 2:19 PM SALES PROCESS MANAGER Sexual Orientation Straight 09/28/2023 2: 19 PM SALES PROCESS MANAGER documented as of this encounter Last Filed Vital Signs Vital Sign Reading Time Taken Comments Blood Pressure 118/73 10/16/2023 10:04 AM SALES PROCESS MANAGER Pulse 87 10/16/2023 10:04 AM SALES PROCESS MANAGER Temperature 36.3 ??C (97.4 ??F) 10/16/2023 1 0:04 AM SALES PROCESS MANAGER Respiratory Rate 18 10/16/2023 10:0 4 AM SALES PROCESS MANAGER Oxygen Saturation 98% 10/16/2023 10: 04 AM SALES PROCESS MANAGER Inhaled Oxygen Concentration - - Weight 95.7 kg (210 lb 14.4 oz) 10/16/2023 3:58 AM SALES PROCESS MANAGER Height 185.4 cm (6' 1) 10/14/2023 5:59 PM SALES PROCESS MANAGER Body Mass Index 27.82 10/14/2023 5:59 PM SALES PROCESS MANAGER documented in this encounter Discharge Summaries * Gail Post MD - 10/16/2023 1:05 PM CST Images from the original note were not included. [facility] Discharge Summary Hospitalist Date of Admission: 10/14/2023 [...] below, scheduled for outpatient cardioversion 10/15. Continue CELERY TIER medications which include Xarelto, losartan and metoprolol. [...] manage insulin with frequent episodes of hypoglycemia. *CELERY TIER Regimen: Takes insulin Glargine 80-90 units at bed time, despite PCP recommendation that he takes 50 units. Last HbA1c 8.7% patient was on hypoglycemia protocol, was continued insulin here, metformin is on hold, continued on CHO diet there is concern whether he can manage his insulin, will arrange outpatient endocrine follow-up. Coronary artery disease Benign essential hypertension CELERY TIER Regimen: Atenolol, losartan, xarelto and rosuvastatin EKG: Atrial fibrillation with rapid ventricular response with left axis deviation Possible Anterior infarct , age undetermined. Last ECHO: 10/01/23 EF 60-65%. Last stress test: 08/21/23 Negative for inducible myocardial ischemia or infarction. Follows with cardiology at [facility] Dr. Patel. Continue CELERY TIER losartan, atenolol stopped. His CELERY TIER statin is on hold, continue holding that [...] triglycerides 65, LDL 27, HDL 26. - CELERY TIER rosuvastatin on hold, consider restarting at a [...] appears clear. ELO DIETRICH MD SYSTEM ID: [id number] XR Chest 2 Views Narrative CHEST TWO [...] Narrative Carter Ellis MD 10/16/2023 9:05 AM [facility] Procedure: EP Cardioversion External Date/Time: 10/16/2023 8:35 [...] the procedure a time out was called Milaca Protocol: the Joint Commission Milaca Protocol was followed Preparation: Patient was prepped [...] without bradycardia or pauses. No apparent complications. S PROCESS MANAGER documented in this encounter Medications at Time [...] has all belongings. 48hr monitor in place. S PROCESS MANAGER * Sarah Sheth, PT - 10/16/2023 12:23 [...] (include personal factors and/or [facility] that [facility] 83-year-old male, admitted on 10/14/2023, presented [...] Commands (Cognition) WFL;delayed response/completion;increased processing time needed ([place]) Pain Assessment Patient Currently in Pain No [...] Evaluation Time PT Eval, Low Complexity Minutes (00968) 12 Physical Therapy Goals PT Frequency One time eval and treatment only PT Predicted Duration/Target Date for Goal Attainment 10/16/23 PT Goals Transfers;Gait;Stairs PT: Transfers Modified independent;Sit to/from stand PT: Gait Supervision/stand-by assist;150 feet PT: Stairs Supervision/stand-by assist;Greater than 10 stairs (Single rail) Interventions Interventions Quick Adds Therapeutic Activity;Gait Training Therapeutic Activity Therapeutic Activities: dynamic activities to improve functional performance Minutes (12388) 10 Symptoms Noted During/After Treatment Fatigue Treatment Detail/Skilled Intervention Patient greeted seated on EOB. present and attentive to patient's needs. Patient very [place] but following commands appropriately. Patient agreeable to [...] with RN. Gait Training Gait Training Minutes (26626) 24 Symptoms Noted During/After Treatment (Gait Training) [...] rest neededbefore ascending stairs. Patient alternates between [id number] and step-to pattern when ascending stairs, again [...] (sum of timed and untimed services) 46 S PROCESS MANAGER * Shashank Arellano RN - 10/16/2023 9:08 AM CST Care Suites Post Procedure Note Patient Information Name: Ilan Alaniz Age: [age] year old Post Procedure Bedside report taken by receiving RN S PROCESS MANAGER * Merlyn Lyon CNP - 10/16/2023 7:41 AM CST [facility] Cardiology Progress Note Date of Service: 10/16/2023 Primary Bookkeeping Machine Mechanic: Dr. Patel Staff Bookkeeping Machine Mechanic: Dr. Malik Assessment & Plan Ilan Alaniz [...] Rate control: Toprol XL 25 mg daily [CELERY TIER atenolol 50 mg daily] S/p successful DCCV [...] Continue Toprol XL 25 mg daily, stop CELERY TIER atenolol. Continue Xarelto 20 mg daily for [...] encounter: 95.7 kg (210 lb 14.4 oz). S PROCESS MANAGER Associated attestation - Tian Malik MD - 10/16/2023 2:41 PM SALES PROCESS MANAGER Physician Attestation I saw and evaluated Ilan Alaniz as part of a shared SURFACE SUPERVISOR/PA visit. I personally reviewed the vital signs, [...] senna x1. Recommend senna 2 tab for cook night. Skin Concerns: Bruise R thigh Drains/Devices: PIV SL Patient Stated Goal for Today: prep for procedures S PROCESS MANAGER * Liss Pride RN - 10/15/2023 4:39 PM CST [facility] Patient is currently receiving services with [facility]. The patient is currently receiving RN services. Patient's rehabilitation case coordinator and home health team have been notified that patient is under inpatient status [facility] Liaison will continue to follow patient during stay. Please provide orders to resume home care at time of discharge if appropriate. S PROCESS MANAGER * Heather Parada RN - 10/15/2023 2:00 [...] met and patient is ready for discharge. S PROCESS MANAGER * Bacilio Steele MD - 10/15/2023 10:40 AM CST [facility] Medicine Progress Note - Hospitalist Service Date [...] then admitted to inpatient. - Telemetry. - CELERY TIER Atenolol switched to metoprolol per cardiology. - Continue CELERY TIER Xarelto. - PRN IV metoprolol for sustained [...] - Telemetry. - Xarelto, metoprolol, losartan. - CELERY TIER rosuvastatin on hold for now as noted [...] manage insulin with frequent episodes of hypoglycemia. *CELERY TIER Regimen: Takes insulin Glargine 80-90 units at bed time, despite PCP recommendation that he takes 50 units. Last HbA1c 8.7% - Hypoglycemia protocol. - Preprandial and HS fingerstick checks or Q 4 hours while NPO. - Hold CELERY TIER metformin. - Medium dose sliding scale insulin ordered. - CELERY TIER lantus decreased to 30 units at bedtime. [...] insulin. Coronary artery disease Benign essential hypertension CELERY TIER Regimen: Atenolol, losartan, xarelto and rosuvastatin EKG: Atrial fibrillation with rapid ventricular response with left axis deviation Possible Anterior infarct , age undetermined. Last ECHO: 10/01/23 EF 60-65%. Last stress test: 08/21/23 Negative for inducible myocardial ischemia or infarction. Follows with cardiology at [facility] Dr. Patel. - Telemetry. - Continue CELERY TIER Losartan and Atenolol with hold parameters. - HOLD CELERY TIER Crestor for now, consider restarting at a lower dose upon discharge. - Continue CELERY TIER nitroglycerin SL PRN 0.4 mg SL tablet [...] triglycerides 65, LDL 27, HDL 26. - CELERY TIER rosuvastatin on hold, consider restarting at a [...] following. Cardioversion. Bacilio Steele MD Hospitalist Service [facility] Securely message with Genterpret (more info) Text page via [facility] Paging/Directory Interval History Ilan Alaniz was [...] No acute displaced fracture. PRECIOUS YOON MD S PROCESS MANAGER * Heather Parada RN - 10/15/2023 10:00 [...] met and patient is ready for discharge. S PROCESS MANAGER * Lauryn Sanchez RN - 10/15/2023 6:00 [...] met and patient is ready for discharge. S PROCESS MANAGER * Lauryn Sanchez RN - 10/15/2023 2:00 [...] met and patient is ready for discharge. S PROCESS MANAGER * Lauryn Sanchez RN - 10/14/2023 10:00 [...] met and patient is ready for discharge. S PROCESS MANAGER * Heather Parada RN - 10/14/2023 6:47 [...] Patient Stated Goal for Today: pain management. S PROCESS MANAGER * Heather Parada RN - 10/14/2023 5:14 PM CST RECEIVING UNIT ED HANDOFF REVIEW ED Nurse Handoff Report was reviewed by: Heather Parada RN on October 14, 2023 at 5:14 PM S PROCESS MANAGER documented in this encounter H&P Notes * Dulce Fisher PA-C - 10/14/2023 1:42 PM CST [facility] History and Physical - Hospitalist Service Date [...] Nicanor Patel 09/23/23. - Telemetry - Continue CELERY TIER Atenolol - Continue CELERY TIER anticoagulation, with Xerelto - PRN IV metoprolol for sustained heart rate >120 - Monitor K+/Mg++, replace PRN - Cardiology consult with plan for cardioversion. - NPO at midnight until cardiology consult Insulin dependent type 2 diabetes Recurrent severe hypoglycemia *Persistent inability to manage insulin with frequent episodes of hypoglycemia *CELERY TIER Regimen: Takes insulin Glargine 80-90 units at bed time, despite PCP recommendation that he takes 50 units. Last HbA1c 8.7% - Hypoglycemia protocol - Preprandial and HS fingerstick checks or Q 4 hours while NPO - Hold CELERY TIER oral antiglycemics (Metformin) - Sliding scale insulin [...] 201* Coronary artery disease Benign essential hypertension CELERY TIER Regimen: Atenolol, losartan, xarelto and rosuvastatin EKG: Atrial fibrillation with rapid ventricular response with left axis deviation Possible Anterior infarct , age undetermined Last ECHO: 10/01/23 EF 60-65% Last stress test: 08/21/23 Negative for inducible myocardial ischemia or infarction. Follows with cardiology at [facility] Dr. Patel - Telemetry-Yes - Continue CELERY TIER Losartan, Atenolol with hold parameters - HOLD CELERY TIER Crestor - Continue CELERY TIER nitroglycerin SL PRN 0.4 mg SL tablet q5min times three doses for chest pain - Hold CELERY TIER losartan for SBP less than 110 and Atenolol for HR less than 60 - PRN IV hydralazine available for SBP >180 - Monitor BP trend and need for medication adjustments Cognitive Dysfunction, progressive *Inability to manage and administer medications in a safe manner -OT for formal cognitive evaluation Dyslipidemia Baseline lipid panel unavailable - Continue CELERY TIER Crestor Chronic kidney disease, stage 3A Baseline [...] Patient, and Patient's Family. Dominic Mukherjee APRN, PRINTING SUPERVISOR Dulce Fisher PA-C Hospitalist Service [facility] Securely message with Genterpret (more info) Text page via [facility] Paging/Directory Chief Complaint Weakness and persistent [...] was also seen in the ED at [place] on 10/01 with symptoms similar to that [...] History Past Surgical History: Procedure Laterality Date [facility] NONSPECIFIC PROCEDURE 2004 Cholecystectomy [facility] NONSPECIFIC PROCEDURE Appendectomy [facility] NONSPECIFIC PROCEDURE Lysis of adhesions [...] appears clear. ELO DIETRICH MD SYSTEM ID: [id number] S PROCESS MANAGER Associated attestation - Michelle Eckert MD - 10/15/2023 3:12 PM SALES PROCESS MANAGER Physician Attestation I have reviewed and discussed [...] 9:05 AM CSTAssociated Order(s): EP Cardioversion External [facility] Procedure: EP Cardioversion External Date/Time: 10/16/2023 8:35 AM Performed by: Carter Ellis MD Authorized by: Merlyn Lyon PRINTING SUPERVISOR [employer] Site Marked: Yes Prior Images Obtained and Reviewed: Yes Required items: Required blood products, implants, devices and special equipment available Patient identity confirmed: Verbally with patient Patient was reevaluated immediately before administering moderate or deep sedation or anesthesia Confirmation Checklist: Patient's identity using two indicators Time out: Immediately prior to the procedure a time out was called Milaca Protocol: the Joint Commission Milaca Protocol was followed Preparation: Patient was prepped [...] without bradycardia or pauses. No apparent complications. S PROCESS MANAGER documented in this encounter Consult Notes * Rachle Palomares RN - 10/16/2023 3:21 PM CST Care Management Discharge Note Discharge Date: 10/16/2023 Discharge Disposition: (to be determined pending therapy recommendations ;) Discharge Services: resumption of [facility] Homecare RN+PT Discharge DME: n/a [...] comments) Handoff Referral Completed: Yes Additional Information: Diplomatic Interpreter/Translator checked in with patient and spouse at the bedside. Patient is cleared for discharge to home with resumption of homecare RN and PT should be added on. Spouse noted that [facility] has the patient scheduled for this Thursday 10/19. Diplomatic Interpreter/Translator to send a message to the homecare Liaison regarding PT being added. No further needs identified. Rachel Palomares RN, BSN, ACM Care Transitions Specialist [facility] Care Transitions Specialist [phone] [address] [email or web address] Office: [phone] [facility] Services S PROCESS MANAGER * Jane Norton PA-C - 10/16/2023 11:02 AM CSTAssociated Order(s): GASTROENTEROLOGY IP CONSULT [facility] Gastroenterology Consultation Ilan Alaniz [address] [place] [address] 83 year old male Admission Date/Time: 10/14/2023 [...] avoid alcohol [facility] Office: [phone] (Dr. Dinh) (Jane Norton PA-C) S PROCESS MANAGER Associated attestation - Sanya Dinh MD - 10/28/2023 7:30 AM SALES PROCESS MANAGER History and physical exam was done independently.Patient's [...] participate in his care. [facility] * Sharon Crain [...] Communication Assessment Patient's communication style: spoken language ([place] Islander or Bilingual) Hearing Difficulty or Deaf: yes [...] care services: (Pt is signed up for [facility] ; has done intake) Community Resources: [...] Chemical Dependency Status: Values/Beliefs: Spiritual, Cultural Beliefs, Pentecostal Practices, Values that affect care: Additional Information: Pt is an 83 year old male who was admitted to hospital with concerns of decreased energy and persistent chest pain. Diplomatic Interpreter/Translator met with pt at bedside. Introduced self and role. Pt is asleep. Diplomatic Interpreter/Translator spoke with pt's .Introduced self and role. [...] had an intake this past Saturday with [facility] home care pr pt's for SNV. She states they would likely be interested in PT/OT being added on if it were to be recommended by therapy. Pt's aware that care management is awaiting therapy recommendations. Diplomatic Interpreter/Translator informed her if theyrecommend anything greater than home care then care management will stop by to discuss with pt and her. Pt's states no further questions or concerns at this time. SHELBI Pineda Social Work [facility] S PROCESS MANAGER * Tian Malik MD - 10/15/2023 11:18 AM CST [facility] Cardiology Consultation Date of Admission: 10/14/2023 Assessment [...] he continues to have chest pain following sabianist of sinus rhythm, will consider coronary angiography. 3. Community-acquired pneumonia 4. Diabetes with recurrent hypoglycemia Tian Malik MD, [facility] High complexity Tian Malik MD, , [...] History Past Surgical History: Procedure Laterality Date [facility] NONSPECIFIC PROCEDURE 2003 Cholecystectomy [facility] NONSPECIFIC PROCEDURE Appendectomy [facility] NONSPECIFIC PROCEDURE Lysis of adhesions [...] HDL, LDL, TRIG, CHOLHDLRATIO in the last 22529 hours. Recent Labs Lab 10/15/23 0715 10/14/23 [...] appears clear. ELO DIETRICH MD SYSTEM ID: [id number] XR Chest 2 Views Narrative CHEST TWO [...] encounter: 96.3 kg (212 lb 3.2 oz). S PROCESS MANAGER documented in this encounter ED Notes * Cyndee Miller RN - 10/14/2023 5:07 PM CST [facility] ED Nurse Handoff Report ED Chief [...] Current: Stand with Assist Patient's Preferred language: [place] Islander Warrant Server Needed?: No Isolation: None Infection: Not Applicable [...] at bedside OBS brochure/video discussed/provided to patient/family: Lula of person given brochure if not patient: Relationship to patient: For the majority of the shift this patient's behavior was Green. Behavioral interventions performed were . ED NURSE PHONE NUMBER: *[id number] S PROCESS MANAGER * David Ahn RN - 10/14/2023 12:40 [...] WDL WDL Cognitive/Neuro/Behavioral WDL Cognitive/Neuro/Behavioral WDL WDL S PROCESS MANAGER * Baldev Burton, - 10/14/2023 12:38 PM CST PIT/Triage Evaluation Patient presented with chest pain and shortness of breath. The patient states that on 08/16/23, he began experiencing a tremendous central chest pain that radiated to his left chest and shoulder while walking up some stairs. 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 Exam is notable for: General: Patient in [...] the hospital. Baldev Burton DO 10/14/23 1249 S PROCESS MANAGER * Ilan Alves MD - 10/14/2023 12:22 [...] this year where he was seen at [facility] for A-fib. Allergies: Animal Dander No Known [...] History: Past Surgical History: Procedure Laterality Date [facility] NONSPECIFIC PROCEDURE 2004 Cholecystectomy [facility] NONSPECIFIC PROCEDURE Appendectomy [facility] NONSPECIFIC PROCEDURE Lysis of adhesions [...] by me General: Pt seen on hospital [facility], pleasant, cooperative, and alert to conversation. [...] Blood Pressure Ventricular Rate 103 Atrial Rate UT Interval QRS Duration 86 QT 290 QTc 379 P Pipestem R AXIS -40 T Pipestem 100 Interpretation ECG Atrial fibrillation with rapid [...] Ilan Alves* Ilan Alves MD 10/14/23 1717 S PROCESS MANAGER documented in this encounter Miscellaneous Notes * Result Encounter Note - Triston Knight PA-C - 10/16/2023 4:33 PM SALES PROCESS MANAGER Abnormal Zio results forwarded to Jean Claude Encarnacion, Cardiovascular Diseases at [facility] (pt hasappt 10/23). S PROCESS MANAGER * Plan of Care - Wen Arciniega OTR - 10/16/2023 2:51 PM CST Occupational Therapy: Orders received. Chart reviewed and discussed with care team.? Occupational Therapy not indicated due to per PT, pt mobilizing well and ind in bathroom. Discharging home and no acute IP OT needs identified.? Defer discharge recommendations to care team.? Will complete orders. S PROCESS MANAGER * Plan of Care - Sarah Sheth PT - 10/16/2023 12:23 PM CST Physical Therapy Discharge Summary Reason for therapy discharge: Discharged to home with home therapy. Progress towards therapy goal(s). See goals on Care Plan in [facility] electronic health record for goal details. [...] his ability to participate in therapy session. S PROCESS MANAGER * Plan of Care - Katelyn Nagel, [...] Patient Stated Goal for Today: Go home S PROCESS MANAGER * Pre-Procedure - Carter Ellis MD - [...] data, medications, and the plan for sedation S PROCESS MANAGER * Plan of Care - Lauryn Sanchez [...] Stated Goal for Today: prep for procedures S PROCESS MANAGER * Utilization Review - Roberto Pacheco MD - 10/15/2023 12:19 PM SALES PROCESS MANAGER Admission Status; Secondary Review Determination Under the [...] section 70.4. Sincerely, ROBERTO PACHECO MD System Wind Plant ManagerHospice Case Manager [facility]. S PROCESS MANAGER * Plan of Care - Lauryn Sanchez [...] Patient Stated Goal for Today: pain management. S PROCESS MANAGER * Pharmacy-Admission Medication History - Bridgette Arciniega, [facility] - 10/14/2023 2:27 PM CST Pharmacist Admission [...] not taking, finds ineffective. Changes made to CELERY TIER medication list: Added: amlodipine, oxycodone, multivitamin, magnesium, [...] reviewed Medication History Completed By: Bridgette Arciniega [facility] 10/14/2023 2:27 PM CELERY TIER Med List Medication Sig Note Last Dose [...] mcg by mouth daily 10/14/2023 at AM S PROCESS MANAGER documented in this encounter Plan of Treatment Upcoming Encounters Date Type Department Care Team (Late st Contact Info) Description 05/14/2024 12:30 PM CDT Office Visit [facility] [address] [place] [address] Gail Post MD [id number] [place] [address] Anushka Carrasquillo MD [address] [place], [place] [address] Scheduled Referrals Name Type Priority Associated Diagnoses Orde r Schedule Adult Endocrinology Trap Operator Referral Referral Routine: Next available opening [...] AND PROVIDER INTERPRETATION Routine 10/16/2023 7:05 PM SALES PROCESS MANAGER GLUCOSE BY METER Routine 10/16/2023 12:0 6 PM SALES PROCESS MANAGER HEPATITIS A ANTIBODY IGM Routine 10/16/2023 10:22 AM SALES PROCESS MANAGER EKG 12-LEAD, TRACING ONLY Routine 10/16/2023 10:04 AM SALES PROCESS MANAGER US ABDOMEN LIMITED Routine 10/16/2023 9: 36 AM SALES PROCESS MANAGER CARDIOVERSION EXTERNAL Routine 8:35 AM SALES PROCESS MANAGER ANESTHESIA, FOR CARDIOVERSION 10/16/2023 8:20 AM SALES PROCESS MANAGER Chronic atrial fibrillation (H) GLUCOSE BY METER Routine 10/16/2023 7:29 AM SALES PROCESS MANAGER EKG 12-LEAD, TRACING ONLY STAT 10/16/2023 7:11 AM SALES PROCESS MANAGER INR STAT 10/16/2023 6:08 AM SALES PROCESS MANAGER MAGNESIUM STAT 10/16/2023 6:08 AM SALES PROCESS MANAGER HEPATITIS C ANTIBODY Add-On 10/16/2023 6:08 AM SALES PROCESS MANAGER HEPATITIS B SURFACE ANTIGEN Add-On 10/16/2023 6:08 AM SALES PROCESS MANAGER COMPREHENSIVE METABOLIC PANEL STAT 10/16/2023 6:08 AM SALES PROCESS MANAGER CBC WITH PLATELETS Routine 10/16/2023 6: 08 AM SALES PROCESS MANAGER GLUCOSE BY METER Routine 10/16/2023 1:10 AM SALES PROCESS MANAGER GLUCOSE BY METER Routine 10/15/2023 9:26 PM SALES PROCESS MANAGER GLUCOSE BY METER Routine 10/15/2023 5:29 PM SALES PROCESS MANAGER GLUCOSE BY METER Routine 10/15/2023 12:0 1 PM SALES PROCESS MANAGER XR CHEST 2 VIEWS Routine 10/15/2023 8:09 AM SALES PROCESS MANAGER GLUCOSE BY METER Routine 10/15/2023 7:39 AM SALES PROCESS MANAGER TROPONIN T, HIGH SENSITIVITY Routine 10/15/2023 7:15 AM SALES PROCESS MANAGER LIPID REFLEX TO DIRECT LDL PANEL Routine 10/15/2023 7:15 AM SALES PROCESS MANAGER COMPREHENSIVE METABOLIC PANEL Routine 10/15/2023 7:15 AM SALES PROCESS MANAGER CBC WITH PLATELETS Routine 10/15/2023 7: 15 AM SALES PROCESS MANAGER GLUCOSE BY METER Routine 10/15/2023 2:13 AM SALES PROCESS MANAGER GLUCOSE BY METER Routine 10/14/2023 10:1 1 PM SALES PROCESS MANAGER LACTIC ACID WHOLE BLOOD STAT 10/14/2023 6:53 PM SALES PROCESS MANAGER GLUCOSE BY METER Routine 10/14/2023 5:42 PM SALES PROCESS MANAGER INFLUENZA A/B, RSV, & SARS-COV2 PCR STAT 10/14/2023 4:40 PM SALES PROCESS MANAGER TROPONIN T, HIGH SENSITIVITY STAT 10/14/2023 2:57 PM SALES PROCESS MANAGER LACTIC ACID WHOLE BLOOD STAT 10/14/2023 2:57 PM SALES PROCESS MANAGER BLOOD CULTURE STAT 10/14/2023 2:28 PM SALES PROCESS MANAGER BLOOD CULTURE STAT 10/14/2023 2:20 PM SALES PROCESS MANAGER XR CHEST 2 VIEWS STAT 10/14/2023 1:12 PM SALES PROCESS MANAGER EXTRA TUBE STAT 10/14/2023 12:53 PM SALES PROCESS MANAGER EXTRA BLUE TOP TUBE STAT 10/14/2023 1 2:53 PM SALES PROCESS MANAGER CBC WITH PLATELETS AND DIFFERENTIAL STAT 10/14/2023 12:53 PM SALES PROCESS MANAGER TROPONIN T, HIGH SENSITIVITY STAT 10/14/2023 12:53 PM SALES PROCESS MANAGER PROCALCITONIN Add-On 10/14/2023 12:53 PM SALES PROCESS MANAGER CBC WITH PLATELETS & DIFFERENTIAL STAT 10/14/2023 12:53 PM SALES PROCESS MANAGER MAGNESIUM Add-On 10/14/2023 12:53 PM SALES PROCESS MANAGER LIPASE STAT 10/14/2023 12:53 PM SALES PROCESS MANAGER HEMOGLOBIN A1C Add-On 10/14/2023 12:53 PM SALES PROCESS MANAGER COMPREHENSIVE METABOLIC PANEL STAT 10/14/2023 12:53 PM SALES PROCESS MANAGER EKG 12-LEAD, TRACING ONLY STAT 10/14/2023 12:41 PM SALES PROCESS MANAGER documented in this encounter Results * HOLTER MONITOR 48 HOUR APPLICATION SCAN ANALYSIS AND PROVIDER INTERPRETATION (10/16/2023 7:05 PM SALES PROCESS MANAGER) Anatomical Region Laterality Modality Other 10/16/2023 4:17 PM SALES PROCESS MANAGER 10/21/2023 6:00 PM SALES PROCESS MANAGER Narrative 10/21/2023 6:00 PM SALES PROCESS MANAGER Kamron De León was monitored for 48 hours. Quality of the tracing was good. Predominant rhythm was Atrial fibrillation ??(61% of the recording). Average HR was 112 bpm, maximum HR was 163 bpm at 12:42 PM (Day 1), minimum HR was 74 bpm at 6:18 AM ??(Day 1). UT interval measured 0.17 seconds, QRS duration 0.09 seconds, QT interval 0.297-0.336 seconds. There were zero pauses over 2.0 seconds. 2. There were 7,774 ventricular ectopic beats (3% [place]), 7,187 of these were isolated PVCs. There were 269 couplets and 15 ??triplets. There was one 4 beat ventricular run with a rate of 176 bpm at 6:15 PM (Day 2). 3. There were 8,313 supraventricular ectopic beats (3% [place]), 6,963 of these were isolated PACs. There [...] were noted. 10/19/2023 Confirmed by NICANOR PATEL ([id number]) on 10/21/2023 6:00:23 PM Procedure Note Nicanor Patel MD - 10/21/2023 1. Ilan De León was monitored for 48 hours. Quality of the tracingwas good. Predominant rhythm was Atrial fibrillation (61% of therecording). Average HR was 112 bpm, maximum HR was 163 bpm at 12:42 PM (Day 1),minimum HR was 74 bpm at 6:18 AM (Day 1). UT interval measured 0.17seconds, QRS duration 0.09 seconds, QT interval 0.297-0.336 seconds. There were zero pauses over 2.0 seconds. 2. There were 7,774 ventricular ectopic beats (3% [place]), 7,187 of thesewere isolated PVCs. There were 269 couplets and 15 triplets. There wasone 4 beat ventricular run with a rate of 176 bpm at 6:15 PM (Day 2). 3. There were 8,313 supraventricular ectopic beats (3% [place]), 6,963 ofthese were isolated PACs. There were [...] were noted. 10/19/2023 Confirmed by NICANOR PATEL ([id number]) on 10/21/2023 6:00:23 PM Merlyn Lyon [facility] ORDERABLES * (ABNORMAL) Glucose by meter (10/16/2023 12:06 PM SALES PROCESS MANAGER) GLUCOSE BY METER POCT 154(H) 70 - 99 mg/dL 10/16/2023 12:16 PM SALES PROCESS MANAGER LABORATORY POC Blood, Capillary BLOOD SPECIMEN / Unknown 10/16/2023 12:06 PM SALES PROCESS MANAGER 10/16/2023 12:16 PM SALES PROCESS MANAGER Michelle Eckert MD LAB - BEAKER POCT LABORATORY POC [facility] Acute Care Lab [address], [address] [place] [address], [facility] [phone] * Hepatitis A antibody IgM (10/16/2023 10:22 AM SALES PROCESS MANAGER) Hepatitis A Antibody IgM Nonreactive Nonreactive 10/16/2023 3:37 PM SALES PROCESS MANAGER LABORATORY Comment:Nonreactive results indicate either inadequate or delayed anti-HAV IgM response after known exposure to HAV or absence of acute or recent hepatitis A. Blood STRUCTURE OF RIGHT UPPER LIMB / Unknown Venipuncture / Unknown 10/16/2023 10:22 AM SALES PROCESS MANAGER 10/16/2023 10:27 AM SALES PROCESS MANAGER Gail Post MD LAB - BLOOD ORDERABL ES U LABORATORY [facility] [address] [facility] [address], [address] [place] [address] [phone] * EKG 12-lead, tracing only (10/16/2023 10:04 AM SALES PROCESS MANAGER) Systolic Blood Pressure mmHg RADIOLOGY RESULTS Diastolic Blood Pressure mmHg RADIOLOGY RESULTS Ventricular Rate 91 BPM RAD IOLOGY RESULTS Atrial Rate 91 BPM RADIOLOG Y RESULTS UT Interval 182 ms RADIOLOG Y RESULTS QRS Duration 80 ms RADIOLO GY RESULTS QT 330 ms RADIOLOGY RESULTS QTc 405 ms RADIOLOGY RESULTS P Pipestem 74 degrees RADIOLOGY RESULTS R AXIS 19 degrees RADIOLOGY RESULTS T Pipestem 213 degrees RADIOLOGY RESULTS Interpretation ECG Sinus rhythm with occasional Premature ventricular complexes and Premature atrial complexes Cannot rule out Anterior infarct , age undetermined Abnormal ECG When compared with ECG of 16-OCT-2023 07:11, (unconfirmed) Sinus rhythm has replaced Atrial fibrillation Confirmed by MD ISAAC, JULIEN ([id number]), photography editor Cole Pool ([id number]) on 10/18/2023 7:58:52 AM RADIOLOGY RESULTS 10/16/2023 10:0 4 AM SALES PROCESS MANAGER 10/18/2023 7:58 AM SALES PROCESS MANAGER Carter Ellis MD ECG ORDERABLES RADIOLOGY RESULTS * US Abdomen Limited (10/16/2023 9:36 AM SALES PROCESS MANAGER) Anatomical Region Laterality Modality Abdomen/Pelvis Ultrasound Impressions 10/16/2023 10:25 AM SALES PROCESS MANAGER IMPRESSION: 1. ??Hepatic steatosis, similar to previous. TRAVON HARRIS MD Narrative 10/16/2023 10:25 AM SALES PROCESS MANAGER US ABDOMEN LIMITED 10/16/2023 9:36 AM CLINICAL [...] ORDERABLES * CARDIOVERSION EXTERNAL (10/16/2023 8:35 AM SALES PROCESS MANAGER) Anatomical Region Laterality Modality Other Narrative 10/16/2023 8:35 AM SALES PROCESS MANAGER Carter Ellis MD ? 10/16/2023 ??9:05 AM [facility] Procedure: EP Cardioversion External Date/Time: 10/16/2023 8:35 [...] procedure a time out was called ?? [place] Protocol: the Joint Commission [place] Protocol was followed ?? Preparation: Patient was [...] (ABNORMAL) Glucose by meter (10/16/2023 7:29 AM SALES PROCESS MANAGER) GLUCOSE BY METER POCT 128(H) 70 - 99 mg/dL 10/16/2023 7:36 AM SALES PROCESS MANAGER LABORATORY POC Blood, Capillary BLOOD SPECIMEN / Unknown 10/16/2023 7:29 AM SALES PROCESS MANAGER 10/16/2023 7:36 AM SALES PROCESS MANAGER Michelle Eckert MD LAB - BEAKER POCT LABORATORY POC [facility] Acute Care Lab [address], [address] [place] [address], [facility] [phone] * EKG 12-lead, tracing only (10/16/2023 7:11 AM SALES PROCESS MANAGER) Systolic Blood Pressure mmHg RADIOLOGY RESULTS Diastolic Blood Pressure mmHg RADIOLOGY RESULTS Ventricular Rate 108 BPM RAD IOLOGY RESULTS Atrial Rate 115 BPM RADIOLOG Y RESULTS UT Interval ms RADIOLOG Y RESULTS QRS Duration 84 ms RADIOLO GY RESULTS QT 308 ms RADIOLOGY RESULTS QTc 412 ms RADIOLOGY RESULTS P [place] degrees RADIOLOGY RESULTS R AXIS -31 degrees RADIOLOGY RESULTS T Pipestem 174 degrees RADIOLOGY RESULTS Interpretation ECG Atrial fibrillation with rapid ventricular response with premature ventricular or aberrantly conducted complexes Left axis deviation Nonspecific ST and T wave abnormality Abnormal ECG When compared with ECG of 14-OCT-2023 12:41, Nonspecific T wave abnormality now evident in Inferior leads Nonspecific T wave abnormality, worse in Lateral leads Confirmed by STACY FITZGERALD ([id number]), photography editor Cole Pool ([id number]) on 10/18/2023 8:02:41 AM RADIOLOGY RESULTS 10/16/2023 7:11 AM SALES PROCESS MANAGER 10/18/2023 8:02 AM SALES PROCESS MANAGER Michelle Eckert MD ECG ORDERABLES RADIOLOGY RESULTS * Hepatitis C antibody (10/16/2023 6:08 AM SALES PROCESS MANAGER) Hepatitis C Antibody Nonreactive Nonreactive 10/16/2023 3:31 PM SALES PROCESS MANAGER [facility]AT[facility] Comment:A nonreactive screen ing test [...] Unknown Venipuncture / Unknown 10/16/2023 6:08 AM SALES PROCESS MANAGER 10/16/2023 6:16 AM SALES PROCESS MANAGER Gail Post MD LAB - BLOOD ORDERABL ES Performing Organization Address City/[facility]/ZIP Co de Phone Number LABORATORY [facility] [address] [facility], [address] [address], [facility] [phone] * Hepatitis B surface antigen (10/16/2023 6:08 AM SALES PROCESS MANAGER) Pathologist [facility] [place] Hepatitis B Surface Antigen Nonreactive Nonreactive 10/16/2023 3:31 PM SALES PROCESS MANAGER LABORATORY Blood STRUCTURE OF RIGHT HAND / Unknown Venipuncture / Unknown 10/16/2023 6:08 AM SALES PROCESS MANAGER 10/16/2023 6:16 AM SALES PROCESS MANAGER Gail Post MD LAB - BLOOD ORDERABL ES Performing Organization Address City/[facility]/ZIP Co de Phone Number LABORATORY [facility] [address] [facility], [address] [address], [facility] [phone] * (ABNORMAL) Comprehensive metabolic panel (10/16/2023 6:08 AM SALES PROCESS MANAGER) Sodium 141 135 - 145 mmol/L 10/16/2023 6:42 AM SALES PROCESS MANAGER LABORATORY Comment:Reference intervals for this test were updated on 05/28/2023 to more accurately reflect our healthy population. There may be differences in the flagging of prior results with similar values performed with this method. Interpretation of those prior results can be made in the context of the updated reference intervals. Potassium 3.9 3.4 - 5.3 mmol/L 10/16/2023 6:42 AM [facility] LABORATORY Carbon Dioxide (CO2) 27 22 - 29 mmol/L 10/16/2023 6:42 AM [facility] Anion Gap 11 7 - 15 mmol/L 10/16/2023 6:42 AM [facility] Urea Nitrogen 27.2(H) 8.0 - 23.0 mg/dL 10/16/2023 6:42 AM [facility] Creatinine 1.38(H) 0.67 - 1.17 mg/dL 10/16/2023 6:42 AM [facility] GFR Estimate 51(L) >60 mL/min/1. 73m2 10/16/2023 6:42 AM [facility] Calcium 9.1 8.8 - 10.2 mg/dL 10/16/2023 6:42 AM [facility] Chloride 103 98 - 107 mmol/L 10/16/2023 6:42 AM [facility] Glucose 135(H) 70 - 99 mg/dL 10/16/2023 6:42 AM [facility] Alkaline Phosphatase 107 40 - 150 U/L 10/16/2023 6:42 AM [facility] Comment:Reference intervals for this test were updated on 07/16/2023 to more accurately reflect our healthy population. There may be differences in the flagging of prior results with similar values performed with this method. Interpretation of those prior results can be made in the context of the updated reference intervals. AST 193(H) 0 - 45 U/L 10/16/2023 6:42 AM [facility] Comment:Reference intervals for this test were updated on 02/11/2023 to more accurately reflect our healthy population. There may be differences in the flagging of prior results with similar values performed with this method. Interpretation of those prior results can be made in the context of the updated reference intervals. ALT 240(H) 0 - 70 U/L 10/16/2023 6:42 AM [facility] Comment:Reference intervals for this test were updated on 02/11/2023 to more accurately reflect our healthy population. There may be differences in the flagging of prior results with similar values performed with this method. Interpretation of those prior results can be made in the context of the updated reference intervals. Protein Total 6.4 6.4 - 8.3 g/dL 10/16/2023 6:42 AM [facility] Albumin 2.9(L) 3.5 - 5.2 g/dL 10/16/2023 6:42 AM [facility] Bilirubin Total 0.3 <=1.2 mg/dL 10/16/2023 6:42 AM [facility] Blood STRUCTURE OF RIGHT HAND / Unknown Venipuncture / Unknown 10/16/2023 6:08 AM SALES PROCESS MANAGER 10/16/2023 6:16 AM [facility] Bacilio Steele MD LAB - BLOOD OR DERABLES LABORATORY [facility] Acute Care Lab [address], [address] [place] [address], [facility] [phone] * (ABNORMAL) CBC with platelets (10/16/2023 6:08 AM [facility]) WBC Count 10.7 4.0 - 11.0 10e3/uL 10/16/2023 6:22 AM [facility] LAB[facility]AT[facility] RBC Count 4.08(L) 4.40 - 5.90 10e6/uL 10/16/2023 6:22 AM [facility] Hemoglobin 12.6(L) 13.3 - 17.7 g/dL 10/16/2023 6:22 AM [facility] Hematocrit 38.5(L) 40.0 - 53.0 % 10/16/2023 6:22 AM [facility] LABORATORY MCV 94 78 - 100 fL 10/16/2023 6:22 AM [facility] LAB[facility]ATORY MCH 30.9 26.5 - 33.0 pg 10/16/2023 6:22 AM [facility] MCHC 32.7 31.5 - 36.5 g/dL 10/16/2023 6:22 AM [facility] RDW 12.8 10.0 - 15.0 % 10/16/2023 6:22 AM [facility] Platelet Count 493(H) 150 - 450 10e3/uL 10/16/2023 6:22 AM [facility] LAB[facility]AT[facility] Blood STRUCTURE OF RIGHT HAND / Unknown Venipuncture / Unknown 10/16/2023 6:08 AM SALES PROCESS MANAGER 10/16/2023 6:16 AM SALES PROCESS MANAGER Bacilio Steele MD LAB - BLOOD OR DERABLES LABORATORY [facility] [address], [address] [place] [address], [facility] [phone] * Magnesium (10/16/2023 6:08 AM SALES PROCESS MANAGER) Magnesium 1.9 1.7 - 2.3 mg/dL 10/16/2023 6:42 AM SALES PROCESS MANAGER LABORATORY Blood STRUCTURE OF RIGHT HAND / Unknown Venipuncture / Unknown 10/16/2023 6:08 AM SALES PROCESS MANAGER 10/16/2023 6:16 AM SALES PROCESS MANAGER Merlyn Lyon CNP LAB - BLOOD ORDERAB LES Performing Organization Address City/[facility]/ZIP Co de Phone Number LABORATORY [facility] [address], [place] [address], [facility] [phone] * (ABNORMAL) INR (10/16/2023 6:08 AM SALES PROCESS MANAGER) INR 3.26(H) 0.85 - 1.15 10/16/2023 6:45 AM SALES PROCESS MANAGER LABORATORY Blood STRUCTURE OF RIGHT HAND / Unknown Venipuncture / Unknown 10/16/2023 6:08 AM SALES PROCESS MANAGER 10/16/2023 6:16 AM SALES PROCESS MANAGER Merlyn Lyon CNP LAB - BLOOD ORDERAB LES LABORATORY [facility] [address], [address] [place] [address], [facility] [phone] * (ABNORMAL) Glucose by meter (10/16/2023 1:10 AM SALES PROCESS MANAGER) GLUCOSE BY METER POCT 169(H) 70 - 99 mg/dL 10/16/2023 1:20 AM SALES PROCESS MANAGER LABORATORY POC Blood, Capillary BLOOD SPECIMEN / Unknown 10/16/2023 1:10 AM SALES PROCESS MANAGER 10/16/2023 1:20 AM SALES PROCESS MANAGER Michelle TONEY - ASHER POCT LABORATORY POC [facility] [address], [address] [place] [address], [place] [phone] * (ABNORMAL) Glucose by meter (10/15/2023 9:26 PM SALES PROCESS MANAGER) GLUCOSE BY METER POCT 219(H) 70 - 99 mg/dL 10/15/2023 9:33 PM SALES PROCESS MANAGER LABORATORY POC Blood, Capillary BLOOD SPECIMEN / Unknown 10/15/2023 9:26 PM SALES PROCESS MANAGER 10/15/2023 9:33 PM SALES PROCESS MANAGER Michelle STERLING POCT LABORATORY POC [facility] [address], [address] [place] [address], [place] [phone] * (ABNORMAL) Glucose by meter (10/15/2023 5:29 PM SALES PROCESS MANAGER) GLUCOSE BY METER POCT 218(H) 70 - 99 mg/dL 10/15/2023 5:40 PM SALES PROCESS MANAGER LABORATORY POC Blood, Capillary BLOOD SPECIMEN / Unknown 10/15/2023 5:29 PM SALES PROCESS MANAGER 10/15/2023 5:40 PM SALES PROCESS MANAGER Michelle STERLING POCT LABORATORY POC [facility] [address], [address] [place] [address], [place] [phone] * (ABNORMAL) Glucose by meter (10/15/2023 12:01 PM SALES PROCESS MANAGER) GLUCOSE BY METER POCT 130(H) 70 - 99 mg/dL 10/15/2023 12:07 PM SALES PROCESS MANAGER LABORATORY POC Blood, Capillary BLOOD SPECIMEN / Unknown 10/15/2023 12:01 PM SALES PROCESS MANAGER 10/15/2023 12:07 PM SALES PROCESS MANAGER Michelle Eckert MD LAB - BEAKER POCT LABORATORY POC [facility] Acute Care Lab [address], [address] [place] [address], [facility] [phone] * XR Chest 2 Views (10/15/2023 8:09 AM SALES PROCESS MANAGER) Anatomical Region Laterality Modality Chest Digital Radiogra phy Impressions 10/15/2023 9:13 AM SALES PROCESS MANAGER IMPRESSION: Stable cardiac silhouette which is partially obscured. Similar opacification of the left lung base which is favored secondary to a moderate-sized left pleural effusion with underlying consolidation not excluded. Similar calcified granuloma of the right lung base. No discernible pneumothorax. No acute displaced fracture. PRECIOUS YOON MD Narrative 10/15/2023 9:13 AM SALES PROCESS MANAGER CHEST TWO VIEWS 10/15/2023 8:09 AM HISTORY: [...] (ABNORMAL) Glucose by meter (10/15/2023 7:39 AM SALES PROCESS MANAGER) GLUCOSE BY METER POCT 122(H) 70 - 99 mg/dL 10/15/2023 7:46 AM SALES PROCESS MANAGER LABORATORY POC Blood, Capillary BLOOD SPECIMEN / Unknown 10/15/2023 7:39 AM SALES PROCESS MANAGER 10/15/2023 7:46 AM SALES PROCESS MANAGER Michelle Eckert MD LAB - BEAKER POCT LABORATORY POC [facility] Acute Care Lab [address], [address] [place] [address], [facility] [phone] * (ABNORMAL) Lipid panel reflex to direct LDL (10/15/2023 7:15 AM SALES PROCESS MANAGER) Cholesterol 66 <200 mg/dL 10/15/2023 11:29 AM SALES PROCESS MANAGER [facility] Triglycerides 65 <150 mg/dL 10/15/2023 11:29 AM SALES PROCESS MANAGER [facility] Direct Measure HDL 26(L) >=40 mg/dL 2023 11:29 AM SALES PROCESS MANAGER [facility] LDL Cholesterol Calculated 27 <=100 mg/dL 10/15/2023 11:29 AM SALES PROCESS MANAGER [facility] Non HDL Cholesterol 40 <130 mg/dL 10/15/2023 11:29 AM SALES PROCESS MANAGER [facility] Patient Fasting > 8hrs? Yes 10/15/2023 11:29 AM SALES PROCESS MANAGER LABORATORY Blood STRUCTURE OF RIGHT UPPER LIMB / Unknown Venipuncture / Unknown 10/15/2023 7:15 AM SALES PROCESS MANAGER 10/15/2023 7:39 AM SALES PROCESS MANAGER Narrative [facility] - 10/15/2023 11:29 AM SALES PROCESS MANAGER Cholesterol Desirable: ??<200 mg/dL Triglycerides Normal: ??Less [...] PA-C LAB - BLOOD ORDERABLES U LABORATORY [facility] [address] [facility], [address] [place] [address], [place] [phone] LABORATORY [facility] Acute Care Lab [address], [address] [place] [address], [place] [phone] * (ABNORMAL) Troponin T, High Sensitivity (10/15/2023 7:15 AM SALES PROCESS MANAGER) [facility] Troponin T, High Sensitivity 30(H) <=22 ng/L 10/15/2023 8:11 AM SALES PROCESS MANAGER LABORATORY Comment: Either a High Sensitivity Troponin [...] Unknown Venipuncture / Unknown 10/15/2023 7:15 AM SALES PROCESS MANAGER 10/15/2023 7:39 AM SALES PROCESS MANAGER Dulce Fisher PA-C LAB - BLOOD ORDERABLES LABORATORY [facility] [address], [address] [place] [address], [facility] [phone] * (ABNORMAL) CBC with platelets (10/15/2023 7:15 AM SALES PROCESS MANAGER) [facility] WBC Count 15.3(H) 4.0 - 11.0 10e3/uL 10/15/2023 7:43 AM [facility] LABORAT[facility] RBC Count 4.00(L) 4.40 - 5.90 10e6/uL 10/15/2023 7:43 AM [facility] Hemoglobin 12.4(L) 13.3 - 17.7 g/dL 10/15/2023 7:43 AM [facility] LAB[facility]ATORY Hematocrit 36.9(L) 40.0 - 53.0 % 10/15/2023 7:43 AM [facility] LABORATORY MCV 92 78 - 100 fL 10/15/2023 7:43 AM [facility] LABORATORY MCH 31.0 26.5 - 33.0 pg 10/15/2023 7:43 AM [facility] LABORAT[facility] MCHC 33.6 31.5 - 36.5 g/dL 10/15/2023 7:43 AM [facility] LABOR[facility] RDW 12.6 10.0 - 15.0 % 10/15/2023 7:43 AM [facility] LAB[facility] Platelet Count 566(H) 150 - 450 10e3/uL 10/15/2023 7:43 AM [facility] LABORATORY Blood STRUCTURE OF RIGHT UPPER LIMB / Unknown Venipuncture / Unknown 10/15/2023 7:15 AM SALES PROCESS MANAGER 10/15/2023 7:39 AM SALES PROCESS MANAGER Dulce Fisher PA-C LAB - BLOOD ORDERABLES LABORATORY [facility] [address], [address] [place] [address], [place] [phone] * (ABNORMAL) Comprehensive metabolic panel (10/15/2023 7:15 AM SALES PROCESS MANAGER) [facility] Sodium 138 135 - 145 mmol/L 10/15/2023 8:11 AM [facility] Comment:Reference intervals for this test were updated on 05/28/2023 to more accurately reflect our healthy population. There may be differences in the flagging of prior results with similar values performed with this method. Interpretation of those prior results can be made in the context of the updated reference intervals. Potassium 3.8 3.4 - 5.3 mmol/L 10/15/2023 8:11 AM [facility] Carbon Dioxide (CO2) 26 22 - 29 mmol/L 10/15/2023 8:11 AM [facility] Anion Gap 12 7 - 15 mmol/L 10/15/2023 8:11 AM [facility] Urea Nitrogen 26.1(H) 8.0 - 23.0 mg/dL 10/15/2023 8:11 AM [facility] Creatinine 1.41(H) 0.67 - 1.17 mg/dL 10/15/2023 8:11 AM [facility] GFR Estimate 49(L) >60 mL/min/1. 73m2 10/15/2023 8:11 AM [facility] Calcium 9.0 8.8 - 10.2 mg/dL 10/15/2023 8:11 AM [facility] Chloride 100 98 - 107 mmol/L 10/15/2023 8:11 AM [facility] Glucose 120(H) 70 - 99 mg/dL 10/15/2023 8:11 AM [facility] Alkaline Phosphatase 87 40 - 150 U/L 10/15/2023 8:11 AM [facility] Comment:Reference intervals for this test were updated on 07/16/2023 to more accurately reflect our healthy population. There may be differences in the flagging of prior results with similar values performed with this method. Interpretation of those prior results can be made in the context of the updated reference intervals. AST 64(H) 0 - 45 U/L 10/15/2023 8:11 AM [facility] Comment:Reference intervals for this test were updated on 02/11/2023 to more accurately reflect our healthy population. There may be differences in the flagging of prior results with similar values performed with this method. Interpretation of those prior results can be made in the context of the updated reference intervals. ALT 123(H) 0 - 70 U/L 10/15/2023 8:11 AM [facility] Comment:Reference intervals for this test were updated on 02/11/2023 to more accurately reflect our healthy population. There may be differences in the flagging of prior results with similar values performed with this method. Interpretation of those prior results can be made in the context of the updated reference intervals. Protein Total 6.4 6.4 - 8.3 g/dL 10/15/2023 8:11 AM [facility] Albumin 3.1(L) 3.5 - 5.2 g/dL 10/15/2023 8:11 AM [facility] Bilirubin Total 0.5 <=1.2 mg/dL 10/15/2023 8:11 AM [facility] Blood STRUCTURE OF RIGHT UPPER LIMB / Unknown Venipuncture / Unknown 10/15/2023 7:15 AM SALES PROCESS MANAGER 10/15/2023 7:39 AM SALES PROCESS MANAGER Dulce Fisher PA-C LAB - BLOOD ORDERABLES [facility] [address] 1[address], [address] [place] [address], [facility] [phone] * (ABNORMAL) Glucose by meter (10/15/2023 2:13 AM SALES PROCESS MANAGER) Pathologist [facility] [place] GLUCOSE BY METER POCT 171(H) 70 - 99 mg/dL 10/15/2023 2:20 AM [facility] POC Blood, Capillary BLOOD SPECIMEN / Unknown 10/15/2023 2:13 AM SALES PROCESS MANAGER 10/15/2023 2:20 AM SALES PROCESS MANAGER Michelle Eckert MD LAB - BEAKER POCT [facility] [address], [address] [place] [address], [place] [phone] * (ABNORMAL) Glucose by meter (10/14/2023 10:11 PM SALES PROCESS MANAGER) GLUCOSE BY METER POCT 221(H) 70 - 99 mg/dL 10/14/2023 10:19 PM SALES PROCESS MANAGER LABORATORY POC Blood, Capillary BLOOD SPECIMEN / Unknown 10/14/2023 10:11 PM SALES PROCESS MANAGER 10/14/2023 10:19 PM SALES PROCESS MANAGER Michelle Eckert MD LAB - BEAKER POCT LABORATORY POC [facility] [address], [address] [place] [address], [place] [phone] * Lactic acid whole blood (10/14/2023 6:53 PM SALES PROCESS MANAGER) Lactic Acid 1.4 0.7 - 2.0 mmol/L 10/14/2023 7:02 PM SALES PROCESS MANAGER LABORATORY Blood STRUCTURE OF RIGHT HAND / Unknown Venipuncture / Unknown 10/14/2023 6:53 PM SALES PROCESS MANAGER 10/14/2023 6:59 PM SALES PROCESS MANAGER Dulce Fisher PA-C LAB - BLOOD ORDERABLES [facility] [address], [address] [place] [address], [place] [phone] * (ABNORMAL) Glucose by meter (10/14/2023 5:42 PM SALES PROCESS MANAGER) GLUCOSE BY METER POCT 134(H) 70 - 99 mg/dL 10/14/2023 6:38 PM SALES PROCESS MANAGER LABORATORY POC Blood, Capillary BLOOD SPECIMEN / Unknown 10/14/2023 5:42 PM SALES PROCESS MANAGER 10/14/2023 6:38 PM SALES PROCESS MANAGER Michelle TONEY - BESUSANNA POCT LABORATORY POC [facility] [address], [address] [place] [address], [facility] [phone] * Asymptomatic Influenza A/B, RSV, & SARS-CoV2 PCR (COVID-19) Nasopharyngeal (10/14/2023 4:40 PM SALES PROCESS MANAGER) Influenza A PCR Negative Negative 10/14/2023 6:12 PM SALES PROCESS MANAGER LABORATORY Influenza B PCR Negative Negative 10/14/2023 6:12 PM SALES PROCESS MANAGER LABORATORY RSV PCR Negative Negative 10/14/2023 6:12 PM SALES PROCESS MANAGER LABORATORY SARS CoV2 PCR Negative Negative 10/14/2023 6:12 PM SALES PROCESS MANAGER LABORATORY Comment:NEGATIVE: SARS-CoV-2 (COVID-19) RNA not detected, presumed negative. Swab NASOPHARYNGEAL STRUCTURE / Unknown Non-blood Collection / Unknown 10/14/2023 4:40 PM SALES PROCESS MANAGER 10/14/2023 4:50 PM SALES PROCESS MANAGER [facility] - 10/14/2023 6:12 PM SALES PROCESS MANAGER Testing was performed using the Xpert Xpress CoV2/Flu/RSV Assay on the [employer] GeneXpert Instrument. This test should be ordered [...] management. This test was validated by the [facility]. These laboratories are certified under the Clinical Laboratory Improvement Amendments of 1988 (CLIA-88) as qualified to perform high complexity laboratory testing. Dulce Fisher PA-C LAB - MICRO GENERAL ORDERABLES LABORATORY [facility] [address] 1[address] floor, [address] [place] [address], [facility] [phone] * (ABNORMAL) Troponin T, High Sensitivity (10/14/2023 2:57 PM SALES PROCESS MANAGER) Troponin T, High Sensitivity 24(H) <=22 ng/L 10/14/2023 3:30 PM SALES PROCESS MANAGER LABORATORY Comment: Either a High Sensitivity Troponin [...] Unknown Venipuncture / Unknown 10/14/2023 2:57 PM SALES PROCESS MANAGER 10/14/2023 3:04 PM SALES PROCESS MANAGER Dulce Fisher PA-C LAB - BLOOD ORDERABLES LABORATORY [facility] Lab [address], [address] [place] [address], [facility] [phone] * (ABNORMAL) Lactic Acid STAT (10/14/2023 2:57 PM SALES PROCESS MANAGER) Lactic Acid 3.1(H) 0.7 - 2.0 mmol/L 10/14/2023 3:15 PM SALES PROCESS MANAGER LABORATORY Blood BLOOD SPECIMEN / Unknown Venipuncture / Unknown 10/14/2023 2:57 PM SALES PROCESS MANAGER 10/14/2023 3:04 PM SALES PROCESS MANAGER Dulce Fisher PA-C LAB - BLOOD ORDERABLES LABORATORY [facility] [address], [address] [place] [address], [facility] [phone] * Blood Culture Hand, Right (10/14/2023 2:28 PM SALES PROCESS MANAGER) Culture No Growth 10/19/2023 5:32 PM SALES PROCESS MANAGER [facility] Blood STRUCTURE OF RIGHT HAND / Unknown Venipuncture / Unknown 10/14/2023 2:28 PM SALES PROCESS MANAGER 10/14/2023 2:35 PM SALES PROCESS MANAGER Narrative [facility] - 10/19/2023 5:32 PM SALES PROCESS MANAGER Only an Aerobic Blood Culture Bottle was collected, interpret results with caution. Ilan Batres [employer] GENERAL ORDERABLES [facility] Inf. Diseases Diag. Lab [address] [facility], [address] [address], [facility] [phone] * Blood Culture Hand, Left (10/14/2023 2:20 PM SALES PROCESS MANAGER) Culture No Growth 10/19/2023 5:32 PM SALES PROCESS MANAGER [facility] Blood STRUCTURE OF LEFT HAND / Unknown Venipuncture / Unknown 10/14/2023 2:20 PM SALES PROCESS MANAGER 10/14/2023 2:35 PM SALES PROCESS MANAGER Narrative [facility] - 10/19/2023 5:32 PM SALES PROCESS MANAGER Only an Aerobic Blood Culture Bottle was collected, interpret results with caution. Ilan Batres [employer] GENERAL ORDERABLES [facility] Inf. Diseases Diag. Lab [address] [facility], [address] [address], [place] [phone] * Chest XR, PA & LAT (10/14/2023 1:12 PM SALES PROCESS MANAGER) Anatomical Region Laterality Modality Chest Digital Radiogra phy Impressions 10/14/2023 6:08 PM SALES PROCESS MANAGER IMPRESSION: New finding of small-moderate left pleural fluid. New consolidation or atelectasis at the left lung base. Obscured cardiac silhouette. Right lung appears clear. ELO DIETRICH MD SYSTEM ID: [id number] Narrative 10/14/2023 6:08 PM SALES PROCESS MANAGER CHEST TWO VIEWS ??10/14/2023 1:12 PM HISTORY: Chest pain. COMPARISON: CT chest 08/16/2023. Procedure Note Elo Dietrich MD - 10/14/2023 CHEST TWO VIEWS 10/14/2023 1:12 PM HISTORY: Chest pain. COMPARISON: CT chest 08/16/2023. IMPRESSION: New finding of small-moderate left pleural fluid. New consolidation or atelectasis at the left lung base. Obscured cardiac silhouette. Right lung appears clear. ELO DIETRICH MD SYSTEM ID: [id number] Baldev Burton DO IMG DIAGNO STIC IMAGING ORDERABLES * (ABNORMAL) Hemoglobin A1c (10/14/2023 12:53 PM SALES PROCESS MANAGER) Pathologist [facility] [place] Hemoglobin A1C 8.4(H) <5.7 % 10/14/2023 4:04 PM SALES PROCESS MANAGER LABORATORY Comment: Normal <5.7% Prediabetes 5.7-6.4% ?? Diabetes 6.5% or higher Note: Adopted from ADA consensus guidelines. Blood STRUCTURE OF LEFT UPPER LIMB / Unknown Venipuncture / Unknown 10/14/2023 12:53 PM SALES PROCESS MANAGER 10/14/2023 12:57 PM SALES PROCESS MANAGER Dulce Fisher PA-C LAB - BLOOD ORDERABLES LABORATORY [facility] Lab [address], [address] [place] [address], [facility] [phone] * Magnesium (10/14/2023 12:53 PM SALES PROCESS MANAGER) Pathologist [facility] [place] Magnesium 1.8 1.7 - 2.3 mg/dL 10/14/2023 3:40 PM SALES PROCESS MANAGER LABORATORY Blood STRUCTURE OF LEFT UPPER LIMB / Unknown Venipuncture / Unknown 10/14/2023 12:53 PM SALES PROCESS MANAGER 10/14/2023 12:57 PM SALES PROCESS MANAGER Dulce Fisher PA-C LAB - BLOOD ORDERABLES LABORATORY [facility] [address], [address] [place] [address], [facility] [phone] * Procalcitonin (10/14/2023 12:53 PM SALES PROCESS MANAGER) [facility] Procalcitonin 0.07 <0.50 ng/mL 10/14/2023 2:31 PM SALES PROCESS MANAGER LABORATORY Comment: Interpretation and Recommendations <0.5 ng/mL: Systemic bacterial infection unlikely. Local bacterial infection is possible. 0.5-1.99 ng/mL: Systemic bacterial infection possible, but various other conditions are known to induce PCT as well. >=2.00 ng/mL: Systemic bacterial infection likely, unless other causes are known. Decision to start antibiotics should not be based on procalcitonin level alone. See Procalcitonin Guidance document for more details. [email or web address] Factors that may affect PCT levels (not [...] Unknown Venipuncture / Unknown 10/14/2023 12:53 PM SALES PROCESS MANAGER 10/14/2023 12:57 PM SALES PROCESS MANAGER Dulce Fisher PA-C LAB - BLOOD ORDERABLES LABORATORY [facility] [address], [address] [place] [address], [facility] [phone] * Extra Blue Top Tube (10/14/2023 12:53 PM SALES PROCESS MANAGER) Hold Specimen [facility] 10/14/2023 2:04 PM SALES PROCESS MANAGER LABORATORY Blood STRUCTURE OF LEFT UPPER LIMB / Unknown Venipuncture / Unknown 10/14/2023 12:53 PM SALES PROCESS MANAGER 10/14/2023 12:57 PM SALES PROCESS MANAGER Baldev Burton DO LAB - BLOO D ORDERABLES LABORATORY [facility] [address], [address] [place] [address], [place] [phone] * (ABNORMAL) CBC with platelets and differential (10/14/2023 12:53 PM SALES PROCESS MANAGER) WBC Count 18.5(H) 4.0 - 11.0 10e3/uL 10/14/2023 1:02 PM SALES PROCESS MANAGER LABORATORY RBC Count 4.25(L) 4.40 - 5.90 10e6/uL 10/14/2023 1:02 PM SALES PROCESS MANAGER LABORATORY Hemoglobin 13.1(L) 13.3 - 17.7 g/dL 10/14/2023 1:02 PM [facility] Hematocrit 40.0 40.0 - 53.0 % 10/14/2023 1:02 PM [facility] MCV 94 78 - 100 fL 10/14/2023 1:02 PM [facility] MCH 30.8 26.5 - 33.0 pg 10/14/2023 1:02 PM [facility] MCHC 32.8 31.5 - 36.5 g/dL 10/14/2023 1:02 PM [facility] RDW 12.7 10.0 - 15.0 % 10/14/2023 1:02 PM [facility] Platelet Count 574(H) 150 - 450 10e3/uL 10/14/2023 1:02 PM [facility] % Neutrophils 83 % 10/14/2023 1:02 PM [facility] % Lymphocytes 10 % 10/14/2023 1:02 PM [facility] % Monocytes 6 % 10/14/2023 1:02 PM [facility] % Eosinophils 0 % 10/14/2023 1:02 PM [facility] % Basophils 0 % 10/14/2023 1:02 PM [facility] % Immature Granulocytes 1 % 10/14/2023 1:02 PM [facility] NRBCs per 100 WBC 0 <1 /100 024 1:02 PM [facility] Absolute Neutrophils 15.2(H) 1.6 - 8.3 10e3/uL 10/14/2023 1:02 PM [facility] Absolute Lymphocytes 1.9 0.8 - 5.3 10e3/uL 10/14/2023 1:02 PM [facility] Absolute Monocytes 1.1 0.0 - 1.3 10e3/uL 10/14/2023 1:02 PM [facility] Absolute Eosinophils 0.0 0.0 - 0.7 10e3/uL 10/14/2023 1:02 PM [facility] Absolute Basophils 0.1 0.0 - 0.2 10e3/uL 10/14/2023 1:02 PM [facility] Absolute Immature Granulocytes 0.1 <=0.4 10e3/uL 10/14/2023 1:02 PM [facility] Absolute NRBCs 0.0 10e3/uL 10/14/2023 1:02 PM SALES PROCESS MANAGER LABORATORY Blood STRUCTURE OF LEFT UPPER LIMB / Unknown Venipuncture / Unknown 10/14/2023 12:53 PM SALES PROCESS MANAGER 10/14/2023 12:57 PM SALES PROCESS MANAGER Baldev Burton DO LAB - BLOO D ORDERABLES LABORATORY [facility] [address], [address] [place] [address], [facility] [phone] * (ABNORMAL) Troponin T, High Sensitivity (10/14/2023 12:53 PM SALES PROCESS MANAGER) [facility] Troponin T, High Sensitivity 25(H) <=22 ng/L 10/14/2023 1:22 PM SALES PROCESS MANAGER LABORATORY Comment: Either a High Sensitivity Troponin [...] Unknown Venipuncture / Unknown 10/14/2023 12:53 PM SALES PROCESS MANAGER 10/14/2023 12:57 PM SALES PROCESS MANAGER Baldev Burton DO LAB - BLOO D ORDERABLES LABORATORY [facility] [address], [address] [place] [address], [place] [phone] * Lipase (10/14/2023 12:53 PM SALES PROCESS MANAGER) Lipase 60 13 - 60 U/L 10/14/2023 1:22 PM [facility] Blood STRUCTURE OF LEFT UPPER LIMB / Unknown Venipuncture / Unknown 10/14/2023 12:53 PM SALES PROCESS MANAGER 10/14/2023 12:57 PM SALES PROCESS MANAGER Baldev Burton DO LAB - BLOO D ORDERABLES LABORATORY [facility] [address], [address] [place] [address], [facility] [phone] * (ABNORMAL) Comprehensive metabolic panel (10/14/2023 12:53 PM [facility]) Sodium 134(L) 135 - 145 mmol/L 10/14/2023 1:22 PM [facility] Comment:Reference intervals for this test were updated on 05/28/2023 to more accurately reflect our healthy population. There may be differences in the flagging of prior results with similar values performed with this method. Interpretation of those prior results can be made in the context of the updated reference intervals. Potassium 4.0 3.4 - 5.3 mmol/L 10/14/2023 1:22 PM [facility] Carbon Dioxide (CO2) 29 22 - 29 mmol/L 10/14/2023 1:22 PM [facility] Anion Gap 12 7 - 15 mmol/L 10/14/2023 1:22 PM [facility] Urea Nitrogen 30.1(H) 8.0 - 23.0 mg/dL 10/14/2023 1:22 PM [facility] Creatinine 1.49(H) 0.67 - 1.17 mg/dL 10/14/2023 1:22 PM [facility] GFR Estimate 46(L) >60 mL/min/1. 73m2 10/14/2023 1:22 PM [facility] Calcium 9.2 8.8 - 10.2 mg/dL 10/14/2023 1:22 PM [facility] Chloride 93(L) 98 - 107 mmol/L 10/14/2023 1:22 PM [facility] Glucose 201(H) 70 - 99 mg/dL 10/14/2023 1:22 PM [facility] Alkaline Phosphatase 92 40 - 150 U/L 10/14/2023 1:22 PM [facility] Comment:Reference intervals for this test were updated on 07/16/2023 to more accurately reflect our healthy population. There may be differences in the flagging of prior results with similar values performed with this method. Interpretation of those prior results can be made in the context of the updated reference intervals. AST 65(H) 0 - 45 U/L 10/14/2023 1:22 PM [facility] Comment:Reference intervals for this test were updated on 02/11/2023 to more accurately reflect our healthy population. There may be differences in the flagging of prior results with similar values performed with this method. Interpretation of those prior results can be made in the context of the updated reference intervals. ALT 118(H) 0 - 70 U/L 10/14/2023 1:22 PM [facility] Comment:Reference intervals for this test were updated on 02/11/2023 to more accurately reflect our healthy population. There may be differences in the flagging of prior results with similar values performed with this method. Interpretation of those prior results can be made in the context of the updated reference intervals. Protein Total 6.9 6.4 - 8.3 g/dL 10/14/2023 1:22 PM [facility] Albumin 3.4(L) 3.5 - 5.2 g/dL 10/14/2023 1:22 PM [facility] Bilirubin Total 0.6 <=1.2 mg/dL 10/14/2023 1:22 PM [facility] Blood STRUCTURE OF LEFT UPPER LIMB / Unknown Venipuncture / Unknown 10/14/2023 12:53 PM SALES PROCESS MANAGER 10/14/2023 12:57 PM SALES PROCESS MANAGER Baldev Burton DO LAB - BLOO D ORDERABLES LABORATORY [facility] [address], [address] [place] [address], [facility] [phone] * EKG 12 lead (10/14/2023 12:41 PM SALES PROCESS MANAGER) Systolic Blood Pressure mmHg RADIOLOGY RESULTS Diastolic Blood Pressure mmHg RADIOLOGY RESULTS Ventricular Rate 103 BPM RAD IOLOGY RESULTS Atrial Rate BPM RADIOLOG Y RESULTS UT Interval ms RADIOLOG Y RESULTS QRS Duration 86 ms RADIOLO GY RESULTS QT 290 ms RADIOLOGY RESULTS QTc 379 ms RADIOLOGY RESULTS P Pipestem degrees RADIOLOGY RESULTS R AXIS -40 degrees RADIOLOGY RESULTS T Pipestem 100 degrees RADIOLOGY RESULTS Interpretation ECG Atrial [...] leads Confirmed by GENERATED REPORT, COMPUTER ([id number]), photography editor ESTEVAN MCDANIELS ([id number]) on 10/14/2023 3:56:41 PM RADIOLOGY RESULTS 10/14/2023 12:4 1 PM SALES PROCESS MANAGER 10/14/2023 3:56 PM SALES PROCESS MANAGER Baldev Burton DO ECG ORDERA TIARA RADIOLOGY [...] exceed 4 grams/day. $Given 10/15/2023 7:36 PM SALES PROCESS MANAGER 650 mg $Given 10/14/2023 6:17 PM SALES PROCESS MANAGER 650 mg albuterol (PROVENTIL) neb solution 2.5 mg 2.5 mg (3 mL), Nebulization, EVERY 2 HOURS PRN, wheezing, shortness of breath, Starting on Sat10/14/23 at 1736 amLODIPine (NORVASC) tablet 5 mg 5 mg, Oral, AT BEDTIME, First dose on Sat10/14/23 at 2200, HOLD for SBP <110 $Given 10/14/2023 10:09 PM SALES PROCESS MANAGER 5 mg azithromycin (ZITHROMAX) 250 mg in sodium chloride 0.9 % 250 mL intermittent infusion Routine, 250 mg, Intravenous, EVERY 24 HOURS, First dose on Sat10/15/23 at 1400, For 4 doses, Schedule subsequent doses 24 hours from first dose. May switch to oral when taking PO and not in ICU., Indications: Community Acquired Pneumonia $New Bag 10/15/2023 3:04 PM SALES PROCESS MANAGER 250 mg azithromycin (ZITHROMAX) 500 mg vial to attach to NS 250 mL bag STAT, 500 mg, Intravenous, ONCE, On Sat10/14/23 at 1355, For 1 dose, Indications: Community Acquired Pneumonia $New Bag 10/14/2023 3:42 PM SALES PROCESS MANAGER 500 mg cefTRIAXone (ROCEPHIN) 2 g vial to attach to NS 100 ml bag for ADULTS or NS 50 ml bag for PEDS STAT, 2 g, Intravenous, ONCE, On Sat10/14/23 at 1355, For 1 dose, Indications: Community Acquired Pneumonia $New Bag 10/14/2023 2:40 PM SALES PROCESS MANAGER 2 g cefTRIAXone (ROCEPHIN) 2 g vial [...] Acquired Pneumonia $New Bag 10/16/2023 2:13 PM SALES PROCESS MANAGER 2 g $New Bag 10/15/2023 1:01 PM SALES PROCESS MANAGER 2 g dextrose 50 % injection 25-50 [...] Sat10/14/23 at 2200 $Given 10/15/2023 9:31 PM SALES PROCESS MANAGER 100 mg $Given 10/14/2023 10:09 PM SALES PROCESS MANAGER 100 mg glucagon injection 1 mg 1 [...] of correction dose. $Given 10/15/2023 6:43 PM SALES PROCESS MANAGER 2 Units insulin aspart (NovoLOG) injection (RAPID [...] of correction dose. $Given 10/15/2023 9:31 PM SALES PROCESS MANAGER 1 Units $Given 10/14/2023 10:46 PM SALES PROCESS MANAGER 1 Units insulin glargine (LANTUS PEN) injection 30 Units 30 Units, Subcutaneous, AT BEDTIME, First dose on Sat10/14/23 at 2200 $Given 10/15/2023 9:31 PM SALES PROCESS MANAGER 30 Units $Given 10/14/2023 10:46 PM SALES PROCESS MANAGER 30 Units losartan (COZAAR) tablet 100 mg 100 mg, Oral, DAILY WITH SUPPER, First dose on Sat10/14/23 at 1800, HOLD for SBP <110 $Given 10/15/2023 6:06 PM SALES PROCESS MANAGER 10 0 mg $Given 10/14/2023 6:17 PM SALES PROCESS MANAGER 100 mg magnesium sulfate 2 g in 50 mL sterile water intermittent infusion 2 g, Intravenous, ONCE PRN, magnesium supplementation, Administer IF magnesium level is less than 2 mg/dL, Starting on Sat10/16/23 at 0500, For 1 dose, Infuse over 60 minutes., Cardiac Pre-procedure $New Bag 10/16/2023 8:03 AM SALES PROCESS MANAGER 2 g melatonin tablet 5 mg 5 mg, Oral, AT BEDTIME PRN, sleep, Starting on Sat10/15/23 at 1859 metoprolol succinate ER (TOPROL XL) 24 hr tablet 25 mg 25 mg, Oral, DAILY, First dose on Sat10/15/23 at 1200, DO NOT CRUSH. Tablet may be split in half along score line. $Given 10/15/2023 1:01 PM SALES PROCESS MANAGER 25 mg mirabegron (MYRBETRIQ) 24 hr tablet 50 mg 50 mg, Oral, DAILY, First dose on Sat10/14/23 at 1800, Do not chew, crush or split tablets. $Given 10/15/2023 6:06 PM SALES PROCESS MANAGER 50 mg $Given 10/14/2023 6:17 PM SALES PROCESS MANAGER 50 mg naloxone (NARCAN) injection 0.2 mg [...] Sat10/14/23 at 1912 $Given 10/14/2023 11:53 PM SALES PROCESS MANAGER 0.4 m g ondansetron (ZOFRAN ODT) ODT [...] CRUSH, Cardiac Pre-procedure $Given 10/16/2023 7:00 AM SALES PROCESS MANAGER 20 mEq prochlorperazine (COMPAZINE) injection 5 mg [...] Indications: Afib-non valvular $Given 10/15/2023 6:06 PM SALES PROCESS MANAGER 20 mg $Given 10/14/2023 7:54 PM SALES PROCESS MANAGER 20 mg senna-docusate (SENOKOT-S/PERICOLACE) 8.6-50 MG per [...] for loose stools. $Given 10/15/2023 7:40 AM SALES PROCESS MANAGER 1 tablet $Given 10/14/2023 7:54 PM SALES PROCESS MANAGER 1 tablet senna-docusate (SENOKOT-S/PERICOLACE) 8.6-50 MG per [...] IV dormant line. Positive 10/16/2023 9:16 AM SALES PROCESS MANAGER 3 mLs $Given 10/15/2023 6:43 PM SALES PROCESS MANAGER 3 mLs $Given 10/15/2023 11:16 AM SALES PROCESS MANAGER 3 mLs sodium chloride (PF) 0.9% PF flush 3 mL 3 mL, Intravenous, EVERY 8 HOURS, First dose on Sat10/16/23 at 0730, And Q1H PRN, to lock peripheral IV dormant line., Cardiac Pre-procedure Positive 10/16/2023 7:19 AM SALES PROCESS MANAGER 3 mLs sodium chloride 0.9% BOLUS 1,000 mL Intravenous, 1,000 mL, ONCE, at 1,000 mL/hr, Administer over 1 Hours, On Sat10/14/23 at 1520, For 1 dose $New Bag 10/14/2023 3:38 PM SALES PROCESS MANAGER 1,000 mLs 1000 mL/hr documented in this encounter Active and Recently Administered Medications Times are shown in SALES PROCESS MANAGER. Scheduled Medication Order 10/14/2023 10/15/2023 10/16/2023 amLODIPine [...] stools. documented in this encounter Care Teams Momd Teacher Relationship Specialty Start Date End Date Merrill Mejia MD [facility] [address] [place] [address] PCP - General Family Medicine 10/10/23 10/24/23 Nicanor Patel MD [address] [place] [phone] Cardiovascular Disease 09/16/23 Nicanor Patel MD [address] [place] [id number] Cardiovascular Disease 09/16/23 Nicanor Patel MD [address] [place] [phone] Assigned Heart and Vascular Provider 09/26/23 documented as of this encounter
--- OUTSIDE RECORDS SUMMARY | 2024-01-13 09:51 | XMS_ITS | Clinical Summary ---
Author Name Unknown Organization [facility] Address [address] [place] [address] Care Team Providers Care Four H Club Agent Name Role Phone Elsewhere, Pcp Primary Care Provider Unavailabl e Source Comments Patient records contain information from all sites at [facility]. For routine questions regarding patient records, call [phone] during business hours, M-F 8:00 AM - 5:00 PM Central Time. Record requests for emergency care only can be directed to [phone] at any time.[facility] Allergies Active Allergy Reactions Criticality Noted Date [...] 500 mg by mouth daily. 06/06/2023 Active rasfzsst-gkl-jbyf -FA-vit K-lut 8 mg iron-400 mcg-50 mcg [...] Orders Only Department of Cardiovascular Medicine in [place], [place] [address] [place] [address] Jean Claude Kimball M.D. 12/10/2023 3:28 PM CDT - 12/10/2023 11:59 PM CDT Hospital Encounter Department of Laboratory Medicine and Pathology, [facility], in [place], [place] [address] [place] [address] Jean Claude Kimball M.D. Fibrillation Atrial (AF) NOS Discharge Disposition: Home or Self Care 12/10/2023 2:00 PM CDT Office Visit Department of Cardiovascular Medicine in [place], [place] [address] [place] [phone] Jean Claude Kimball M.D. Fibrillation Atrial (AF) NOS (Primary Dx) 12/10/2023 11:30 AM CDT Office Visit Department of Urology in [place], [place] [address] [place] [phone] Rachel Gulilory M.D. Urgency Urinary (Primary Dx) 12/10/2023 10:45 AM CDT Procedure visit Department of Urology in [place], [place] [address] [place] [phone] Chanel Concepcion M.D., M.B.A. Teri Coto, R.N. Symptom Urinary; Nocturia 12/06/2023 10:37 AM CDT - 12/06/2023 11:59 PM CDT Hospital Encounter Department of Cardiovascular Diseases in [place], [place] [address] [place] [phone] Jean Claude Kimball M.D. Atrial Fibrillation Other Persistent (HCC) Discharge Disposition: Home or Self Care 11/26/2023 Clinical Communication Department of Cardiovascular Medicine in [place], [place] [address] [place] [address] Jean Claude Kimball M.D. Appointment 11/21/[address] [address] Merrill Mejia M.D. Tremor (Primary Dx); Amnesia; Diabetes Mellitus Type 2 With Diabetic Neuropathy (HCC) 10/24/2023 11:57 AM APRICOT PACKER - 10/24/2023 11:59 PM APRICOT PACKER Hospital Encounter Department of Cardiovascular Diseases in [place], [place] [address] [place] [address] Jean Claude Kimball M.D. Atrial Fibrillation Other Persistent (HCC) Discharge Disposition: Home or Self Care 10/23/2023 12:30 PM APRICOT PACKER Diagnostic Division of Pulmonary Medicine in [place], [place] [address] [place] [phone] Jean Claude Kimball M.D. Atrial Fibrillation Other Persistent (HCC) 10/23/2023 11:38 AM APRICOT PACKER - 10/23/2023 11:59 PM APRICOT PACKER Hospital Encounter Department of Laboratory Medicine and Pathology, [facility] in [place], [place] [address] [place] [phone] Jean Claude Kimball M.D. Atrial Fibrillation Other Persistent (HCC); Fatty Liver Discharge Disposition: Home or Self Care 10/23/2023 11:20 AM APRICOT PACKER - 10/23/2023 11:37 AM APRICOT PACKER Hospital Encounter Department of Radiology, [facility] in [address] [phone] Jean Claude Kimabll M.D. Atrial Fibrillation Other Persistent (HCC) Discharge Disposition: Home or Self Care 10/23/2023 10:55 AM APRICOT PACKER Ancillary Procedure Department of Radiology in [address] [phone] Jean Claude Kimball M.D. Atrial Fibrillation Other Persistent (HCC) 10/23/2023 9:00 AM [facility] Comprehensive Visit Department of Cardiovascular Medicine in [address] [phone] Jean Claude Kimball M.D. Atrial Fibrillation Other Persistent (HCC) (Primary Dx); Fatty Liver 10/22/2023 4:45 PM [facility] Clinical Communication Virtual Review in [place], [place] [address] [place] [address] Pre-visit Intake 10/18/2023 3:05 PM APRICOT PACKER - 10/18/2023 11:42 PM [address]OT [address]ACKER Emergency [facility] Emergency Department [address] [place] [phone] Newton Garcia M.D. Atrial Fibrillation Unspecified (HCC) [...] often do you attend chur ch or methodist services? More than 4 times per year 01/11/2020 Do you belong to any clubs o r organizations such as latter day groups, unions, fraternal or athletic groups, or [...] and heating? Not hard at all 01/11/2020 [facility] Occupational Stress Questionnaire Answer Date [...] T Respiratory Rate 15 10/18/2023 11:15 PM APRICOT PACKER Oxygen Saturation 95% 10/18/2023 11:15 PM APRICOT PACKER Inhaled Oxygen Concentration - - Weight 97.8 kg (215 lb 9.8 oz) 10/23/2023 8:50 A M APRICOT PACKER Height 180 cm (5' 10.87) 10/23/2023 8:50 AM APRICOT PACKER Body Mass Index 30.19 10/23/2023 8:50 AM APRICOT PACKER Plan of Treatment Upcoming Encounters Date Type Department Care Team (Latest Contact Info) Description 01/29/2024 10:45 AM CDT Clinical Communication Virtual Review in [place], [place] 200 [place] [address] 02/05/2024 1:00 PM CDT Comprehensive Visit Department of Neurology in [place], [place] [address] [place] [phone] Arturo Barfield M.D. [address] [place] [phone] Health Maintenance Due Date Last Done Comments [...] history exists Medical Devices Implanted Type Area Nursery Technician Device Identifier Shelf Expiration Date Model / Serial / Lot Screw Frs 22mm P3022 - Gomez [id number] Implanted:Qty: 1 on 09/05/2011 Hardware e.g. pins/screws /rods BioMet Description:Device Manufactu CSL DualCom - [employer] Device Status Text - [id number]. K-Wire-Ss 4 Smooth .035 - Gomez [id number] Implanted:Qty: 1 on 09/05/2011 Hardware e.g. pins/screws /rods Peña Description:Device Manufactu rer - [place] [employer].. Device Status Text - [id number]. K-Wire-Ss 4 Smooth .062 - Gomez [id number] Implanted:Qty: 2 on 09/05/2011 Hardware e.g. pins/screws /rods [place] Description:Device Manufactu rer - [employer].. Device Status Text - HARDWARE-871. Mesh [...] 3:41 PM CDT Fibrillation Atrial (AF) NOS OK MARY PST VOID RESID US NON IMG Routine 12/10/2023 10:45 AM CDT Symptom Urinary Nocturia OK UROFLOWMETRY CMPLX Routine 12/10/2023 10:45 AM CDT Symptom Urinary Nocturia HOLTER MONITOR - IN CLINIC GAMBLING MONITOR Routine 12/08/2023 11:00 AM CDT Atrial Fibrillation Other Persistent (HCC) (TTE) 2D ECHO DOPPLER COLOR Routine 10/24/2023 1:24 PM APRICOT PACKER Atrial Fibrillation Other Persistent (HCC) D-DIMER, P Routine 10/23/2023 11:54 AM APRICOT PACKER Fatty Liver HEPATIC FUNCTION PANEL, S Routine 10/23/2023 11:54 AM APRICOT PACKER Atrial Fibrillation Other Persistent (HCC) DX CHEST AP OR PA AND LATERAL 2 VIEWS RAD - Routine (most inpatients and all outpatients) 10/23/2023 11:30 AM APRICOT PACKER Atrial Fibrillation Other Persistent (HCC) INTERPRETATION OF OUTSIDE CT ABDOMEN AND OR PELVIS RAD - Routine (most inpatients and all outpatients) 10/23/2023 10:53 AM APRICOT PACKER Atrial Fibrillation Other Persistent (HCC) PUL HOME OVERNIGHT OXIMETRY Routine 10/23/2023 Atrial Fibrillation Other Persistent (HCC) DX CHEST AP OR PA AND LATERAL 2 VIEWS RAD - Semiurgent (Fast; most ED patients; some inpatients) 10/18/2023 8:46 PM APRICOT PACKER TROPONIN T, 2H/6H, 5TH GEN, P Timed 10/18/2023 5:13 PM APRICOT PACKER NT-PRO B-TYPE NATRIURETIC PEPTIDE (BNP), S STAT 10/18/2023 3:27 PM APRICOT PACKER PROTHROMBIN TIME (PT), P STAT 10/18/2023 3:27 PM APRICOT PACKER TROPONIN T, BASELINE, 5TH GEN, P STAT 10/18/2023 3:27 PM APRICOT PACKER THYROID-STIMULATING HORMONE-SENSITIVE (S-TSH) STAT 10/18/2023 3:27 PM APRICOT PACKER CBC WITH DIFFERENTIAL, B STAT 10/18/2023 3:27 PM APRICOT PACKER BASIC METABOLIC PANEL, S/P STAT 10/18/2023 3:27 PM APRICOT PACKER FERRITIN, S Routine 10/18/2023 3:21 PM APRICOT PACKER Atrial Fibrillation Other Persistent (HCC) Fatty Liver ECG STAT 10/18/2023 3:17 PM APRICOT PACKER from Last 3 Months Results * Hepatic [...] Jean Claude Kimball M.D. [place] [address] * Thyroid Function [place] (12/10/2023 3:41 PM CDT) Pathologist [facility] TSH, Sensitive 1.6 0.3 - 4.2 mIU/L 12/10/2023 7:29 PM CDT DTL Blood (Blood, Venous) 12/10/2023 3:41 PM CDT 12/10/2023 4:09 PM CDT Jean Claude Kimball M.D. LAB BLOOD ADD-ON Performing Organization Address City/[facility]/[place] [address] * (ABNORMAL) Basic Metabolic Panel (12/10/2023 3:41 [...] Jean Claude Kimball M.D. LAB BLOOD ADD-ON [address] [address], [facility] [address] [place] [address] * OK UROFLOWMETRY CMPLX, OK MARY PST VOID RESID US NON IMG (12/10/2023 10:45 AM CDT) Narrative Jaqueline Brady M.D. - 12/10/2023 10:45 AM CDT Jaqueline Brady M.D. ? 12/10/2023 ??1:59 PM URO Uroflow Performed by: Jaqueline Brday M.D. Authorized by: Chanel Concepcion M.D., M.B.A. [...] ANDREA * HOLTER MONITOR - IN CLINIC GAMBLING MONITOR (12/08/2023 11:00 AM CDT) Min Heart Rate [...] Duration 0 duration INFOBION IC MOME AF Wilbraham 0 percent INFOBIONIC MOME Symptom Count 0 [...] 1%. 4. No symptomatic events were noted. Dish Room Worker: DAYANA Rogers /DAYANA Cruz Procedure Note Josias [...] than1%. 4. No symptomatic events were noted. Dish Room Worker: DAYANA Rogers /DAYANA Cruz Jean Claude Kimball M.D. CV CARDIAC SERVICES PROCEDURES INFOBIONIC MOME NA * (TTE) 2D ECHO DOPPLER COLOR (10/24/2023 1:24 PM APRICOT PACKER) Ejection Fraction 56 MC CV EIMS Mid-Ascending [...] Laterality Modality Echocardiography 10/24/2023 12:1 8 PM APRICOT PACKER Impressions 10/24/2023 1:36 PM APRICOT PACKER LEFT VENTRICLE:Normal left ventricular chamber size. Normal left ventricular wall thickness. Calculated 2-D linear left ventricular ejection fraction 56% with mwog-rj-cgrh variability. No regional wall motion abnormalities. Indeterminate [...] the Order-Level Documents. Narrative 10/24/2023 1:36 PM APRICOT PACKER For the complete report, see the Order-Level Documents. Hemodynamics Heart Rate: 127 BPM Blood Pressure: 136 / 72 mmHg ECG: Atrial fibrillation, BPM 100-140 Final Impressions 1. Echocardiogram performed in the setting of atrial fibrillation with rapid ventricular rate; ??hemodynamics may be inaccurate. 2. Normal left ventricular chamber size, calculated 2-D linear ejection fraction 56% with xzgf-yh-fafj variability. 3. Moderately enlarged left atrial size. [...] size, calculated 2-D linear ejectionfraction 56% with vfvq-vh-ebej variability. 3. Moderately enlarged left atrial size. [...] 2-D linear left ventricularejection fraction 56% with kerl-ma-nsll variability. No regional wallmotion abnormalities. Indeterminate left [...] PROCEDURES * (ABNORMAL) D-Dimer (10/23/2023 11:54 AM APRICOT PACKER) D-Dimer, P 853(H) <=500 ng/mL FEU 10/23/2023 12:33 PM APRICOT PACKER DTL Comment: D-dimer concentrations increase with age. [...] (PE). Blood (Blood, Venous) 10/23/2023 11:54 AM APRICOT PACKER 10/23/2023 12:18 PM APRICOT PACKER Jean Claude Kimball M.D. LAB BLOOD ADD-ON [facility] [address] [place] [address], [facility] [address] [place] [address] * DX Chest AP or PA and Lateral 2 Views (10/23/2023 11:30 AM APRICOT PACKER) Only the most recent of2 resultswithin the time period is included. Anatomical Region Laterality Modality Chest, Thoracic RST LOS, Tho racic ARZ LOS, Thoracic FLA LOS N/A Digital Radiography Impressions 10/23/2023 11:35 AM APRICOT PACKER Moderate left pleural effusion has decreased minimally in size since 10/18/2023. Very tiny right pleural effusion has also improved. Subsegmental atelectasis left base. Aortic calcification. Calcified granulomas in both lungs. Calcified right hilar node. Slight cardiac enlargement. Narrative 10/23/2023 11:35 AM APRICOT PACKER EXAM: ??DX CHEST AP OR PA AND [...] Abdomen and or Pelvis (10/23/2023 10:53 AM APRICOT PACKER) Anatomical Region Laterality Modality Abdomen, Pelvis, Abdominal R ST LOS, Abdominal ARZ LOS, Abdominal FLA LOS, Other N/A Computed Tomography Impressions 10/25/2023 8:06 AM APRICOT PACKER 1. Negative. No acute or suspicious findings. No significant change since 09/30/2013. 2. This OS examination was performed in conjunction with a CT of the chest, which will be re-reported separately if requested. Narrative 10/25/2023 8:06 AM APRICOT PACKER EXAM: ??INTERPRETATION OF OUTSIDE CT ABDOMEN AND OR PELVIS . Outside CT of the abdomen and pelvis with IV contrast dated 09/12/2023. COMPARISON: ??Outside CT 06/16/2023 and [facility] CT 09/30/2013. FINDINGS: ??Liver, pancreas, [...] dated 09/12/2023. COMPARISON: Outside CT 06/16/2023 and [facility] CT 09/30/2013. FINDINGS: Liver, pancreas, [...] PUL Home Overnight Oximetry (10/23/2023) 10/23/2023 Impressions [facility] - 10/24/2023 1:58 PM APRICOT PACKER This is an overnight oximetry assumed to have been performed on room air as a completed questionnaire was not returned. ??Mean saturation of 94% with periods of oscillatory desaturation to as low as 82% noted during the study. ??Heart rate tracing suggests an arrhythmia. Impression: ??Abnormal. ??Desaturations concerning for a positional or sleep- related breathing disorder. ??Possible arrhythmia. Physician: Martin Humphries M.D. [id number] Narrative Procedure Note Martin Humphries M.D., Ph.D. [...] disorder. Possible arrhythmia. Physician: Martin Humphries M.D. [id number] Jean Claude Kimball M.D. PFT ORDERABLES [facility] * (ABNORMAL) Troponin T, 2h/6h, 5th Gen (10/18/2023 5:13 PM APRICOT PACKER) Troponin T, 2 hr, 5th gen 24(H) <=15 ng/L 10/18/2023 5:53 PM APRICOT PACKER STMA 2H Delta -1 ng/L 10/18/2023 5:53 PM APRICOT PACKER STMA 2H Delta Interp Not Changing 10/18/2023 5:53 PM APRICOT PACKER STMA Troponin T, 6 hr, 5th gen CANCELED ng/L 10/18/2023 5:53 PM APRICOT PACKER STMA Comment:Result canceled by t he ancillary. 6H Delta CANCELED ng/L 10/18/2023 5:53 PM APRICOT PACKER STMA Comment:Result canceled by t he ancillary. 6H Delta % CANCELED % 10/18/2023 5:53 PM APRICOT PACKER STMA Comment:Result canceled by t he ancillary. Blood (Blood, Venous) 10/18/2023 5:13 PM APRICOT PACKER 10/18/2023 5:28 PM APRICOT PACKER Narrative [facility] - 10/18/2023 5:53 PM APRICOT PACKER Specimen Information: Specimen ID: [id number] Specimen Type: Blood Specimen Collection Start Date: 10/18/2023 ??5:13 PM Specimen Received Date: 10/18/2023 ??5:28 PM Specimen ID: [id number] Specimen Type: Blood Specimen Collection Start Date: 10/18/2023 ??5:53 PM Specimen Received Date: 10/18/2023 ??5:53 PM Janice Pierce P.A.-C. MCuongS. LAB BLOOD TRO PONIN [facility] [address] [place] [address], [facility] [address] [place] [address] * (ABNORMAL) Troponin T, Baseline, 5th gen (10/18/2023 3:27 PM APRICOT PACKER) Pathologist [facility] Troponin T, Baseline, 5th gen 25(H) <=15 ng/L 10/18/2023 4:17 PM APRICOT PACKER STMA Blood (Blood, Venous) 10/18/2023 3:27 PM APRICOT PACKER 10/18/2023 3:32 PM APRICOT PACKER Janice Pierce P.A.-C. MCuongSCuong LAB BLOOD TRO PONIN Performing Organization Address [facility] de Phone Number [facility] [address] [place], [place] [phone] [place] [address] 200 [place] [address] * (ABNORMAL) NT-Pro B-Type Natriuretic Peptide (BNP) (10/18/2023 3:27 PM APRICOT PACKER) NT-Pro BNP 1599(H) <=540 pg/mL 10/18/2023 4:20 PM APRICOT PACKER [facility] Comment: NT-proBNP values less than 300 pg/mL [...] failure. Blood (Blood, Venous) 10/18/2023 3:27 PM APRICOT PACKER 10/18/2023 3:32 PM APRICOT PACKER Janice Pierce P.A.-C., M.S. LAB BLOOD ADD -ON Performing Organization Address [facility] Co de Phone Number [facility] [address] [place], [place] [phone] [place] [address] [address] [place] [address] * (ABNORMAL) Prothrombin Time (PT) (10/18/2023 3:27 PM APRICOT PACKER) Prothrombin Time, P 23.8(H) 9.4 - 12.5 sec 10/18/2023 4:00 PM APRICOT PACKER DTL INR 2.1 0.9 - 1.1 10/18/2023 4:00 PM APRICOT PACKER DTL Comment: ----ADDITIONAL INFORMATION---- Standard intensity warfarin therapeutic range: 2.0 to 3.0 ?? High intensity warfarin therapeutic range: 2.5 to 3.5 Blood (Blood, Venous) 10/18/2023 3:27 PM APRICOT PACKER 10/18/2023 3:40 PM APRICOT PACKER Janice Pierce P.A.-C., M.S. LAB BLOOD ADD -ON [facility] [address] [place] [address], [facility] [address] [place] [address] * (ABNORMAL) CBC with Differential, Blood (10/18/2023 3:27 PM APRICOT PACKER) Hemoglobin 13.1(L) 13.2 - 16.6 g/dL 10/18/2023 3:39 PM APRICOT PACKER STMA Hematocrit 40.1 38.3 - 48.6 % 10/18/2023 3:39 PM APRICOT PACKER STMA Erythrocytes 4.24(L) 4.35 - 5.65 x10(12)/L 10/18/2023 3:39 PM APRICOT PACKER STMA MCV 94.6 78.2 - 97.9 fL 10/18/2023 3:39 PM APRICOT PACKER STMA RBC Distrib Width 12.7 11.8 - 14.5 % 10/18/2023 3:39 PM APRICOT PACKER ST[facility] Platelet Count 582(H) 135 - 317 x10(9)/L 10/18/2023 3:39 PM APRICOT PACKER ST[facility] Leukocytes 11.4(H) 3.4 - 9.6 x10(9)/L 10/18/2023 3:39 PM APRICOT PACKER ST[facility] Neutrophils 8.73(H) 1.56 - 6.45 x10(9)/L 10/18/2023 3:39 PM APRICOT PACKER DHPM Lymphocytes 1.86 0.95 - 3.07 x10(9)/L 10/18/2023 3:39 PM APRICOT PACKER STMA Monocytes 0.67 0.26 - 0.81 x10(9)/L 10/18/2023 3:39 PM APRICOT PACKER STMA Eosinophils 0.06 0.03 - 0.48 x10(9)/L 10/18/2023 3:39 PM APRICOT PACKER STMA Basophils 0.07 0.01 - 0.08 x10(9)/L 10/18/2023 3:39 PM APRICOT PACKER ST[facility] Blood (Blood, Venous) 10/18/2023 3:27 PM APRICOT PACKER 10/18/2023 3:32 PM APRICOT PACKER Janice Pierce P.A.-C., M.S. LAB BLOOD ADD -ON Performing Organization Address City/[facility]/ZIP Co de Phone Number [facility] [address] [place] [address], [facility] STMA [facility] [address] [place] [address] DHPM [facility] [address] [place] [address] * S-TSH (Thyroid-Stimulating Hormone - Sensitive) (10/18/2023 3:27 PM APRICOT PACKER) TSH, Sensitive 1.2 0.3 - 4.2 mIU/L 10/18/2023 4:16 PM APRICOT PACKER DTL Blood (Blood, Venous) 10/18/2023 3:27 PM APRICOT PACKER 10/18/2023 3:51 PM APRICOT PACKER Janice Pierce P.A.-C., M.S. LAB BLOOD ADD -ON Performing Organization Address City/[facility]/ZIP Co de Phone Number [facility] [address] [place] [address], [facility] DTL [facility] [address] [place] [address] * (ABNORMAL) Ferritin (10/18/2023 3:21 PM APRICOT PACKER) Ferritin, S 843(H) 31 - 409 mcg/L 10/23/2023 12:00 PM APRICOT PACKER DTL Blood (Blood, Venous) 10/18/2023 3:21 PM APRICOT PACKER 10/23/2023 11:22 AM APRICOT PACKER Jean Claude Kimball M.D. LAB BLOOD ADD-ON Performing Organization Address [facility] Co de Phone Number [facility] [address] [place] [address], [place] DTL [facility] [address] [place] [address] * ECG 12 Lead (10/18/2023 3:17 PM APRICOT PACKER) Ventricular Rate ECG/Min 134 BPM MUSE QRSD Interval 78 ms MUSE QT Interval 274 ms MUSE QTC Interval 409 ms MUSE R Bennett -22 degrees MUSE T Wave Bennett 155 degrees MUSE 10/18/2023 3:17 PM APRICOT PACKER 10/18/2023 3:21 PM APRICOT PACKER Impressions MUSE - 10/18/2023 3:21 PM APRICOT PACKER Atrial fibrillation with rapid ventricular response with [...] Garcia M.D. ECG ORDERABLES Performing Organization Address [facility] Co de Phone Number MUSE NA from Last 3 Months Advance Directives For more information, please contact: [phone] Documents on File Type Date Recorded Patient Life Trainer Expl anation Advance Directives 10/13/2009 12:00 AM Leg acy document. See document viewer. Advance Directives 10/13/2009 12:00 AM Leg acy document. See document viewer. Advance Directives 05/06/2007 12:00 AM Lega cy document. See document viewer. Care Teams Four H Club Agent Relationship Specialty Start Date End Date Elsewhere, Pcp PCP - General Internal Medicine 10/07/23
--- OUTSIDE RECORDS SUMMARY | 2024-01-13 09:51 | XMS_ITS | Encounter Summary ---
Author Name Unknown Organization [facility] Address [address] [facility] [place] [address] Care Team Providers Care General Magistrate Name Role Phone Nicanor Klein MD Unavailable Nicanor Klein MD Unavailable Nicanor Klein MD Unavailable Merrill Mejia MD Primary Care Provider [phone] Encounter Details Date Type Department Care Team (Latest Contact Info) Description 10/12/2023 Medical Correspondence [facility] [address] [place] [address] Scan, Non-Provider [facility] Social History Tobacco Use Types Packs/Day Years Used Date Smoking Tobacco: Never Alcohol Use Standard Drinks/Week Comments Yes 0 (1 standard drink = 0.6 oz pur e alcohol) Adolescent Education Answer Date Record ed Getting School Help Needed Not on file 06/09 Sex and Gender Information Value Date Recorded Sex Assigned at Male 09/28/2023 2:19 PM LEATHER SPRAYER Gender Identity Male 09/28/2023 2:19 PM LEATHER SPRAYER Sexual Orientation Straight 09/28/2023 2: 19 PM LEATHER SPRAYER documented as of this encounter Plan of Treatment Upcoming Encounters Date Type Department Care Team (Late st Contact Info) Description 05/14/2024 12:30 PM CDT Office Visit [place] [address] [place] [phone] Gail Post MD [address] [address] Anushka Carrasquillo MD [address] [place] [address] [place] [address] documented as of this encounter Visit Diagnoses Not on filedocumented in this encounter Care Teams General Magistrate Relationship Specialty Start Date End Date Merrill Mejia MD [facility] [address] [place] [address] PCP - General Family Medicine 10/10/23 10/24/23 Nicanor Klein MD [address] [facility] [address] [address] Cardiovascular Disease 09/16/23 Nicanor Klein MD [address] [facility] [address] [address] Cardiovascular Disease 09/16/23 Nicanor Klein MD [address] [facility] [address] [address] Assigned Heart and Vascular Provider 09/26/23 documented as of this encounter
--- OUTSIDE RECORDS SUMMARY | 2024-01-13 09:51 | XMS_ITS | Encounter Summary ---
Author Name Unknown Organization [place] Address [address] [place] [id number] Care Team Providers Care Brand Engineer Name Role Phone Edwige Negrete MD Primary Care Provider [phone] Nicanor Klein MD Unavailable Nicanor Klein MD Unavailable Nicanor Klein MD Unavailable Merrill Mejia MD Primary Care Provider Merrill Mejia MD Primary Care Provider Reason for Visit * Reason Onset Date Comments Appointment 08/19/2023 [facility] Encounter Details Date Type Department Care Team (Late st Contact Info) Description 08/19/2023 Telephone [facility] [address] [place] [address] None Appointment ([facility] ) Social History Tobacco Use Types Packs/Day Years Used Date Smoking Tobacco: Never Alcohol Use Standard Drinks/Week Comments Yes 0 (1 standard drink = 0.6 oz pur e alcohol) Adolescent Education Answer Date Record ed Getting School Help Needed Not on file 06/09 Sex and Gender Information Value Date Recorded Sex Assigned at Male 09/28/2023 2:19 PM INTEGRATION DIRECTOR Gender Identity Male 09/28/2023 2:19 PM INTEGRATION DIRECTOR Sexual Orientation Straight 09/28/2023 2: 19 PM INTEGRATION DIRECTOR documented as of this encounter Miscellaneous Notes [...] Not Applicable Thank you! [facility] GRATION DIRECTOR documented in this encounter Plan of Treatment Upcoming Encounters Date Type Department Care Team (Late st Contact Info) Description 05/14/2024 12:30 PM CDT Office Visit [facility] [address] [place] [phone] Gail Post MD [address] [place] [address] Anushka Carrasquillo MD [address] [place] [address] documented as of this encounter Visit Diagnoses Not on filedocumented in this encounter Care Teams Brand Engineer Relationship Specialty [place] [id number] [place] [address] PCP - General Family Practice 07/21/19 10/09/23 Merrill Mejia MD [facility] [address] [address] PCP - General Family Medicine 10/10/23 10/24/23 Merrill Mejia MD [facility] [address] [address] PCP - General Family Medicine 10/25/23 Nicanor Klein MD [address] [place] [id number] Cardiovascular Disease 09/16/23 Nicanor Klein MD [address] [place] [address] Cardiovascular Disease 09/16/23 Nicanor Klein MD [address] DARLENE BANEGAS [id number] Assigned Heart and Vascular Provider 09/26/23 documented as of this encounter
--- OUTSIDE RECORDS SUMMARY | 2024-01-13 09:51 | XMS_ITS | Referral Summary ---
Author Name Unknown Organization [facility] Address [address] [place] [address] Care Team Providers Care Sephora Operations Consultant Name Role Phone Elsewhere, Pcp Primary Care Provider Unavailabl e Source Comments Patient records contain information from all sites at [facility]. For routine questions regarding patient records, call [phone] during business hours, M-F 8:00 AM - 5:00 PM Central Time. Record requests for emergency care only can be directed to [phone] at any time.[facility] Encounters Date Type Department Care Team Description 12/11/2023 Orders Only Department of Cardiovascular Medicine in [place], [place] [address] [place] [phone] Jean Claude Kimball M.D. 12/10/2023 3:28 PM CDT - 12/10/2023 11:59 PM CDT Hospital Encounter Department of Laboratory Medicine and Pathology, [facility], in [place], [place] [address] [place] [phone] Jean Claude Kimball M.D. Fibrillation Atrial (AF) NOS Discharge Disposition: Home or Self Care 12/10/2023 2:00 PM CDT Office Visit Department of Cardiovascular Medicine in [place], [place] [address] [place] [phone] Jean Claude Kimball M.D. Fibrillation Atrial (AF) NOS (Primary Dx) 12/10/2023 11:30 AM CDT Office Visit Department of Urology in [place], [place] [address] [place] [address] Rachel Guillory M.D. Urgency Urinary (Primary Dx) 12/10/2023 10:45 AM CDT Procedure visit Department of Urology in [address] [phone] Chanel Concepcion M.D., M.B.A. Teri Coto RCuongNCuong Symptom Urinary; Nocturia 12/06/2023 10:37 AM CDT - 12/06/2023 11:59 PM CDT Hospital Encounter Department of Cardiovascular Diseases in [place], [place] [address] [place] [phone] Jean Claude Kimball M.D. Atrial Fibrillation Other Persistent (HCC) Discharge Disposition: Home or Self Care 11/26/2023 Clinical Communication Department of Cardiovascular Medicine in [address] [phone] Jean Claude Kimball M.D. Appointment 11/21/[address] [address] Merrill Mejia M.D. Tremor (Primary Dx); Amnesia; Diabetes Mellitus Type 2 With Diabetic Neuropathy (HCC) 10/24/2023 11:57 AM AMMONIA BOX OPERATOR - 10/24/2023 11:59 PM AMMONIA BOX OPERATOR Hospital Encounter Department of Cardiovascular Diseases in [place], [place] [address] [place] [phone] Jean Claude Kimball M.D. Atrial Fibrillation Other Persistent (HCC) Discharge Disposition: Home or Self Care 10/23/2023 11:38 AM AMMONIA BOX OPERATOR - 10/23/2023 11:59 PM AMMONIA BOX OPERATOR Hospital Encounter Department of Laboratory Medicine and Pathology, [facility] in [place], [place] [address] [place] [phone] Jean Claude Kimball M.D. Atrial Fibrillation Other Persistent (HCC); Fatty Liver Discharge Disposition: Home or Self Care 10/23/2023 11:20 AM AMMONIA BOX OPERATOR - 10/23/2023 11:37 AM AMMONIA BOX OPERATOR Hospital Encounter Department of Radiology, [facility] in [place], [place] [address] [place] [phone] Jean Claude Kimball M.D. Atrial Fibrillation Other Persistent (HCC) Discharge Disposition: Home or Self Care 10/23/2023 12:30 PM AMMONIA BOX OPERATOR Diagnostic Division of Pulmonary Medicine in [place], [place] [address] [place] [phone] Jean Claude Kimball M.D. Atrial Fibrillation Other Persistent (HCC) 10/23/2023 10:55 AM AMMONIA BOX OPERATOR Ancillary Procedure Department of Radiology in [place], [place] [address] [place] [phone] Jean Claude Kimball M.D. Atrial Fibrillation Other Persistent (HCC) 10/23/2023 9:00 AM AMMONIA BOX OPERATOR Comprehensive Visit Department of Cardiovascular Medicine in [place], [place] [address] [place] [phone] Jean Claude Kimball M.D. Atrial Fibrillation Other Persistent (HCC) (Primary Dx); Fatty Liver 10/22/2023 4:45 PM AMMONIA BOX OPERATOR Clinical Communication Virtual Review in [place], [place] [address] [place] [phone] Pre-visit Intake 10/18/2023 3:05 PM AMMONIA BOX OPERATOR - 10/18/2023 11:42 PM AMMONIA BOX OPERATOR Emergency [facility] Emergency Department [address] [place] [phone] Newton Garcia M.D. Atrial Fibrillation Unspecified (HCC) [...] bedtime. 10/16/2023 Active Accu-Chek Guide Glucose Meter [facility] USE TO TEST BLOOD SUGARS TWICE DAILY 09/06/2023 Active metFORMIN XR (GLUCOPHAGE-XR) 500 mg 24 hr tablet Take 500 mg by mouth daily. 06/06/2023 Active lakevywz-stm-qlhp -FA-vit K-lut 8 mg iron-400 mcg-50 mcg [...] often do you attend chur ch or nondenominational services? More than 4 times per year 01/11/2020 Do you belong to any clubs o r organizations such as anglican groups, unions, fraternal or athletic groups, or [...] and heating? Not hard at all 01/11/2020 [facility] - Occupational Stress Questionnaire Answer Date [...] T Respiratory Rate 15 10/18/2023 11:15 PM AMMONIA BOX OPERATOR Oxygen Saturation 95% 10/18/2023 11:15 PM AMMONIA BOX OPERATOR Inhaled Oxygen Concentration - - Weight 97.8 kg (215 lb 9.8 oz) 10/23/2023 8:50 A M AMMONIA BOX OPERATOR Height 180 cm (5' 10.87) 10/23/2023 8:50 AM AMMONIA BOX OPERATOR Body Mass Index 30.19 10/23/2023 8:50 AM AMMONIA BOX OPERATOR Plan of Treatment Upcoming Encounters Date Type Department Care Team (Latest Contact Info) Description 01/29/2024 10:45 AM CDT Clinical Communication Virtual Review in [place], [place] 200 [place] [phone] 02/05/2024 1:00 PM CDT Comprehensive Visit Department of Neurology in [place], [place] [address] [place] [phone] Arturo Barfield M.D. [address] [place] [phone] Medical Devices Implanted Type Area Family Program Specialist Device Identifier Shelf Expiration Date Model / Serial / Lot Screw Frs 22mm [id number] - Gomez [id number] Implanted:Qty: 1 on 09/05/2011 Hardware e.g. pins/screws /rods BioMet Description:Device Manufactu rer - [employer] Device Status Text - [id number]. K-Wire-Ss 4 Smooth .035 - Gomez [id number] Implanted:Qty: 1 on 09/05/2011 Hardware e.g. pins/screws /rods Peña Description:Device Manufactu rer - [place] [employer].. Device Status Text - [id number]. K-Wire-Ss 4 Smooth .062 - Gomez [id number] Implanted:Qty: 2 on 09/05/2011 Hardware e.g. pins/screws /rods [place] Description:Device Manufactu rer - Peña Yuan.. Device [...] 3:41 PM CDT Fibrillation Atrial (AF) NOS [place] MARY PST VOID RESID US NON IMG Routine 12/10/2023 10:45 AM CDT Symptom Urinary Nocturia [place] UROFLOWMETRY CMPLX Routine 12/10/2023 10:45 AM CDT Symptom Urinary Nocturia HOLTER MONITOR - IN CLINIC NEGOTIATIONS DIRECTOR Routine 12/08/2023 11:00 AM CDT Atrial Fibrillation Other Persistent (HCC) (TTE) 2D ECHO DOPPLER COLOR Routine 10/24/2023 1:24 PM AMMONIA BOX OPERATOR Atrial Fibrillation Other Persistent (HCC) D-DIMER, P Routine 10/23/2023 11:54 AM AMMONIA BOX OPERATOR Fatty Liver HEPATIC FUNCTION PANEL, S Routine 10/23/2023 11:54 AM AMMONIA BOX OPERATOR Atrial Fibrillation Other Persistent (HCC) DX CHEST AP OR PA AND LATERAL 2 VIEWS RAD - Routine (most inpatients and all outpatients) 10/23/2023 11:30 AM AMMONIA BOX OPERATOR Atrial Fibrillation Other Persistent (HCC) INTERPRETATION OF OUTSIDE CT ABDOMEN AND OR PELVIS RAD - Routine (most inpatients and all outpatients) 10/23/2023 10:53 AM AMMONIA BOX OPERATOR Atrial Fibrillation Other Persistent (HCC) PUL HOME OVERNIGHT OXIMETRY Routine 10/23/2023 Atrial Fibrillation Other Persistent (HCC) DX CHEST AP OR PA AND LATERAL 2 VIEWS RAD - Semiurgent (Fast; most ED patients; some inpatients) 10/18/2023 8:46 PM AMMONIA BOX OPERATOR TROPONIN T, 2H/6H, 5TH GEN, P Timed 10/18/2023 5:13 PM AMMONIA BOX OPERATOR NT-PRO B-TYPE NATRIURETIC PEPTIDE (BNP), S STAT 10/18/2023 3:27 PM AMMONIA BOX OPERATOR PROTHROMBIN TIME (PT), P STAT 10/18/2023 3:27 PM AMMONIA BOX OPERATOR TROPONIN T, BASELINE, 5TH GEN, P STAT 10/18/2023 3:27 PM AMMONIA BOX OPERATOR THYROID-STIMULATING HORMONE-SENSITIVE (S-TSH) STAT 10/18/2023 3:27 PM AMMONIA BOX OPERATOR CBC WITH DIFFERENTIAL, B STAT 10/18/2023 3:27 PM AMMONIA BOX OPERATOR BASIC METABOLIC PANEL, S/P STAT 10/18/2023 3:27 PM AMMONIA BOX OPERATOR FERRITIN, S Routine 10/18/2023 3:21 PM AMMONIA BOX OPERATOR Atrial Fibrillation Other Persistent (HCC) Fatty Liver ECG STAT 10/18/2023 3:17 PM AMMONIA BOX OPERATOR from Last 3 Months Results * Hepatic [...] Jean Claude Kimball M.D. LAB BLOOD ADD-ON [facility] [address] [place] [address], [facility] [address] [place] [address] * Thyroid Function [place] (12/10/2023 3:41 PM CDT) TSH, Sensitive 1.6 0.3 - 4.2 mIU/L 12/10/2023 7:29 PM CDT DTL Blood (Blood, Venous) 12/10/2023 3:41 PM CDT 12/10/2023 4:09 PM CDT Jean Claude Kimball M.D. LAB BLOOD ADD-ON [facility] [address] [place] [address], [place] DTL [facility] [address] [place] [address] * (ABNORMAL) Basic Metabolic Panel (12/10/2023 3:41 PM CDT) Only the most recent of2 resultswithin the time period is included. Pathologist [facility] Potassium, S 4.6 3.6 - 5.2 mmol/L [...] Jean Claude Kimball M.D. LAB BLOOD ADD-ON [facility] [address] [place] [address], [place] DTL [facility] [address] [place] [address] * KS UROFLOWMETRY CMPLX, [place] MARY PST VOID RESID US NON IMG [...] ANDREA * HOLTER MONITOR - IN CLINIC NEGOTIATIONS DIRECTOR (12/08/2023 11:00 AM CDT) Min Heart Rate [...] Duration 0 duration INFOBION IC MOME AF Gunpowder 0 percent INFOBIONIC MOME Symptom Count 0 [...] 1%. 4. No symptomatic events were noted. Health Support Specialist: DAYANA Rogers /DAYANA Cruz Procedure Note Josias [...] than1%. 4. No symptomatic events were noted. Health Support Specialist: DAYANA Rogers /DAYANA Cruz Jean Claude Kimball M.D. CV CARDIAC SERVICES PROCEDURES INFOBIONIC MOME NA * (TTE) 2D ECHO DOPPLER COLOR (10/24/2023 1:24 PM AMMONIA BOX OPERATOR) Ejection Fraction 56 MC CV EIMS Mid-Ascending [...] Laterality Modality Echocardiography 10/24/2023 12:1 8 PM AMMONIA BOX OPERATOR Impressions 10/24/2023 1:36 PM AMMONIA BOX OPERATOR LEFT VENTRICLE:Normal left ventricular chamber size. Normal left ventricular wall thickness. Calculated 2-D linear left ventricular ejection fraction 56% with cqrj-hm-ubyw variability. No regional wall motion abnormalities. Indeterminate [...] the Order-Level Documents. Narrative 10/24/2023 1:36 PM AMMONIA BOX OPERATOR For the complete report, see the Order-Level Documents. Hemodynamics Heart Rate: 127 BPM Blood Pressure: 136 / 72 mmHg ECG: Atrial fibrillation, BPM 100-140 Final Impressions 1. Echocardiogram performed in the setting of atrial fibrillation with rapid ventricular rate; ??hemodynamics may be inaccurate. 2. Normal left ventricular chamber size, calculated 2-D linear ejection fraction 56% with hgbp-ty-fjgk variability. 3. Moderately enlarged left atrial size. [...] size, calculated 2-D linear ejectionfraction 56% with dauy-gi-xukv variability. 3. Moderately enlarged left atrial size. [...] 2-D linear left ventricularejection fraction 56% with gcfq-ob-tvym variability. No regional wallmotion abnormalities. Indeterminate left [...] PROCEDURES * (ABNORMAL) D-Dimer (10/23/2023 11:54 AM AMMONIA BOX OPERATOR) D-Dimer, P 853(H) <=500 ng/mL FEU 10/23/2023 12:33 PM AMMONIA BOX OPERATOR DTL Comment: D-dimer concentrations increase with age. ??For DVT/PE exclusion, in addition to clinical pre-test probability, age-adjusted D-dimer cut-offs are suggested for patients >50 years old. For additional information refer to the D-dimer assay in the Laboratory Test Catalog (LTC) and/or [employer] (FIDELINA). ----ADDITIONAL INFORMATION---- D-dimer values less than or equal to 500 ng/mL fibrinogen equivalent units (FEU) may be used in conjunction with clinical pre-test probability to exclude deep vein thrombosis (DVT) and/or pulmonary embolism (PE). Blood (Blood, Venous) 10/23/2023 11:54 AM AMMONIA BOX OPERATOR 10/23/2023 12:18 PM AMMONIA BOX OPERATOR Jean Claude Kimball M.D. LAB BLOOD ADD-ON [facility] [address] [place] [address], [facility] DTL [facility] [address] [place] [address] * DX Chest AP or PA and Lateral 2 Views (10/23/2023 11:30 AM AMMONIA BOX OPERATOR) Only the most recent of2 resultswithin the time period is included. Anatomical Region Laterality Modality Chest, Thoracic RST LOS, Tho racic ARZ LOS, Thoracic FLA LOS N/A Digital Radiography Impressions 10/23/2023 11:35 AM AMMONIA BOX OPERATOR Moderate left pleural effusion has decreased minimally in size since 10/18/2023. Very tiny right pleural effusion has also improved. Subsegmental atelectasis left base. Aortic calcification. Calcified granulomas in both lungs. Calcified right hilar node. Slight cardiac enlargement. Narrative 10/23/2023 11:35 AM AMMONIA BOX OPERATOR EXAM: ??DX CHEST AP OR PA [...] Abdomen and or Pelvis (10/23/2023 10:53 AM AMMONIA BOX OPERATOR) Anatomical Region Laterality Modality Abdomen, Pelvis, Abdominal R ST LOS, Abdominal ARZ LOS, Abdominal FLA LOS, Other N/A Computed Tomography Impressions 10/25/2023 8:06 AM AMMONIA BOX OPERATOR 1. Negative. No acute or suspicious findings. No significant change since 09/30/2013. 2. This OS examination was performed in conjunction with a CT of the chest, which will be re-reported separately if requested. Narrative 10/25/2023 8:06 AM AMMONIA BOX OPERATOR EXAM: ??INTERPRETATION OF OUTSIDE CT ABDOMEN AND OR PELVIS . Outside CT of the abdomen and pelvis with IV contrast dated 09/12/2023. COMPARISON: ??Outside CT 06/16/2023 and [facility] CT 09/30/2013. FINDINGS: ??Liver, pancreas, and [...] dated 09/12/2023. COMPARISON: Outside CT 06/16/2023 and [facility] CT 09/30/2013. FINDINGS: Liver, pancreas, and [...] separately if requested. Jean Claude Kimball M.D. [facility] [place] PROCEDURES * PUL Home Overnight Oximetry (10/23/2023) 10/23/2023 Impressions [facility] - 10/24/2023 1:58 PM AMMONIA BOX OPERATOR This is an overnight oximetry assumed to have been performed on room air as a completed questionnaire was not returned. ??Mean saturation of 94% with periods of oscillatory desaturation to as low as 82% noted during the study. ??Heart rate tracing suggests an arrhythmia. Impression: ??Abnormal. ??Desaturations concerning for a positional or sleep- related breathing disorder. ??Possible arrhythmia. Physician: Martin Humphries M.D. [id number] Narrative Procedure Note Martin Humphries M.D., Ph.D. [...] disorder. Possible arrhythmia. Physician: Martin Humphries M.D. [id number] Jean Claude Kimball M.D. PFT ORDERABLES [facility] * (ABNORMAL) Troponin T, 2h/6h, 5th Gen (10/18/2023 5:13 PM AMMONIA BOX OPERATOR) Troponin T, 2 hr, 5th gen 24(H) <=15 ng/L 10/18/2023 5:53 PM AMMONIA BOX OPERATOR STMA 2H Delta -1 ng/L 10/18/2023 5:53 PM AMMONIA BOX OPERATOR STMA 2H Delta Interp Not Changing 10/18/2023 5:53 PM AMMONIA BOX OPERATOR STMA Troponin T, 6 hr, 5th gen CANCELED ng/L 10/18/2023 5:53 PM AMMONIA BOX OPERATOR STMA Comment:Result canceled by t he ancillary. 6H Delta CANCELED ng/L 10/18/2023 5:53 PM AMMONIA BOX OPERATOR STMA Comment:Result canceled by t he ancillary. 6H Delta % CANCELED % 10/18/2023 5:53 PM AMMONIA BOX OPERATOR STMA Comment:Result canceled by t he ancillary. Blood (Blood, Venous) 10/18/2023 5:13 PM AMMONIA BOX OPERATOR 10/18/2023 5:28 PM AMMONIA BOX OPERATOR Narrative [facility] - 10/18/2023 5:53 PM AMMONIA BOX OPERATOR Specimen Information: Specimen ID: [id number] Specimen Type: Blood Specimen Collection Start Date: 10/18/2023 ??5:13 PM Specimen Received Date: 10/18/2023 ??5:28 PM Specimen ID: [id number] Specimen Type: Blood Specimen Collection Start Date: 10/18/2023 ??5:53 PM Specimen Received Date: 10/18/2023 ??5:53 PM Janice Pierce P.A.-C., M.S. LAB BLOOD TRO PONIN Performing Organization Address [facility] Co de Phone Number [facility] [address] [place] [address] * (ABNORMAL) Troponin T, Baseline, 5th gen (10/18/2023 3:27 PM AMMONIA BOX OPERATOR) Pathologist [facility] Troponin T, Baseline, 5th gen 25(H) <=15 ng/L 10/18/2023 4:17 PM AMMONIA BOX OPERATOR [facility] Blood (Blood, Venous) 10/18/2023 3:27 PM AMMONIA BOX OPERATOR 10/18/2023 3:32 PM AMMONIA BOX OPERATOR Janice Pierce P.A.-C., M.S. LAB BLOOD TRO PONIN Performing Organization Address [facility] de Phone Number [facility] [address] [place] [address] * (ABNORMAL) NT-Pro B-Type Natriuretic Peptide (BNP) (10/18/2023 3:27 PM AMMONIA BOX OPERATOR) Pathologist [facility] NT-Pro BNP 1599(H) <=540 pg/mL 10/18/2023 4:20 PM AMMONIA BOX OPERATOR [facility] Comment: NT-proBNP values less than 300 [...] failure. Blood (Blood, Venous) 10/18/2023 3:27 PM AMMONIA BOX OPERATOR 10/18/2023 3:32 PM AMMONIA BOX OPERATOR Janice Pierce P.A.-C. M.S. LAB BLOOD ADD -ON Performing Organization Address [facility] Co de Phone Number [facility] [address] STMA [facility] [address] [place] [address] * (ABNORMAL) Prothrombin Time (PT) (10/18/2023 3:27 PM AMMONIA BOX OPERATOR) Pathologist [facility] Prothrombin Time, P 23.8(H) 9.4 - 12.5 sec 10/18/2023 4:00 PM AMMONIA BOX OPERATOR DTL INR 2.1 0.9 - 1.1 10/18/2023 4:00 PM AMMONIA BOX OPERATOR DTL Comment: ----ADDITIONAL INFORMATION---- Standard intensity warfarin therapeutic range: 2.0 to 3.0 ?? High intensity warfarin therapeutic range: 2.5 to 3.5 Blood (Blood, Venous) 10/18/2023 3:27 PM AMMONIA BOX OPERATOR 10/18/2023 3:40 PM AMMONIA BOX OPERATOR Janice Pierce P.A.-C., M.S. LAB BLOOD ADD -ON Performing Organization Address [facility] Co de Phone Number [facility] [address] [place] [address], [facility] DTL [facility] [address] [place] [address] * (ABNORMAL) CBC with Differential, Blood (10/18/2023 3:27 PM AMMONIA BOX OPERATOR) Hemoglobin 13.1(L) 13.2 - 16.6 g/dL 10/18/2023 3:39 PM AMMONIA BOX OPERATOR STMA Hematocrit 40.1 38.3 - 48.6 % 10/18/2023 3:39 PM AMMONIA BOX OPERATOR STMA Erythrocytes 4.24(L) 4.35 - 5.65 x10(12)/L 10/18/2023 3:39 PM AMMONIA BOX OPERATOR STMA MCV 94.6 78.2 - 97.9 fL 10/18/2023 3:39 PM AMMONIA BOX OPERATOR STMA RBC Distrib Width 12.7 11.8 - 14.5 % 10/18/2023 3:39 PM AMMONIA BOX OPERATOR ST[facility] Platelet Count 582(H) 135 - 317 x10(9)/L 10/18/2023 3:39 PM AMMONIA BOX OPERATOR STMA Leukocytes 11.4(H) 3.4 - 9.6 x10(9)/L 10/18/2023 3:39 PM AMMONIA BOX OPERATOR STMA Neutrophils 8.73(H) 1.56 - 6.45 x10(9)/L 10/18/2023 3:39 PM AMMONIA BOX OPERATOR [facility] Lymphocytes 1.86 0.95 - 3.07 x10(9)/L 10/18/2023 3:39 PM AMMONIA BOX OPERATOR STMA Monocytes 0.67 0.26 - 0.81 x10(9)/L 10/18/2023 3:39 PM AMMONIA BOX OPERATOR STMA Eosinophils 0.06 0.03 - 0.48 x10(9)/L 10/18/2023 3:39 PM AMMONIA BOX OPERATOR STMA Basophils 0.07 0.01 - 0.08 x10(9)/L 10/18/2023 3:39 PM AMMONIA BOX OPERATOR STMA Blood (Blood, Venous) 10/18/2023 3:27 PM AMMONIA BOX OPERATOR 10/18/2023 3:32 PM AMMONIA BOX OPERATOR Janice Pierce P.A.-C., M.S. LAB BLOOD ADD -ON [facility] [address] [place] [address], [facility] STMA [facility] [address] [place] [address] DHPM [facility] [address] [place] [address] * S-TSH (Thyroid-Stimulating Hormone - Sensitive) (10/18/2023 3:27 PM AMMONIA BOX OPERATOR) [facility] TSH, Sensitive 1.2 0.3 - 4.2 mIU/L 10/18/2023 4:16 PM AMMONIA BOX OPERATOR DTL Blood (Blood, Venous) 10/18/2023 3:27 PM AMMONIA BOX OPERATOR 10/18/2023 3:51 PM AMMONIA BOX OPERATOR Janice Pierce P.A.-C., M.S. LAB BLOOD ADD -ON [facility] [address] [place] [address] * (ABNORMAL) Ferritin (10/18/2023 3:21 PM AMMONIA BOX OPERATOR) Ferritin, S 843(H) 31 - 409 mcg/L 10/23/2023 12:00 PM AMMONIA BOX OPERATOR DTL Blood (Blood, Venous) 10/18/2023 3:21 PM AMMONIA BOX OPERATOR 10/23/2023 11:22 AM AMMONIA BOX OPERATOR Jean Claude Kimball M.D. LAB BLOOD ADD-ON Performing Organization Address [facility] Co de Phone Number [facility] [address] [place] [address] * ECG 12 Lead (10/18/2023 3:17 PM AMMONIA BOX OPERATOR) Pathologist [facility] Ventricular Rate ECG/Min 134 BPM MUSE QRSD Interval 78 ms MUSE QT Interval 274 ms MUSE QTC Interval 409 ms MUSE R [place] -22 degrees MUSE T Wave [place] 155 degrees MUSE 10/18/2023 3:17 PM AMMONIA BOX OPERATOR 10/18/2023 3:21 PM AMMONIA BOX OPERATOR Impressions MUSE - 10/18/2023 3:21 PM AMMONIA BOX OPERATOR Atrial fibrillation with rapid ventricular response with [...] Advance Directives For more information, please contact: [phone] Documents on File Type Date Recorded Patient Lead Front End Developer Expl anation Advance Directives 10/13/2009 12:00 AM Leg acy document. See document viewer. Advance Directives 10/13/2009 12:00 AM Leg acy document. See document viewer. Advance Directives 05/06/2007 12:00 AM Lega cy document. See document viewer. Care Teams [employer] Operations Consultant Relationship Specialty Start Date End Date Elsewhere, Pcp PCP - General Internal Medicine 10/07/23
--- OUTSIDE RECORDS SUMMARY | 2024-01-13 09:51 | XMS_ITS | Encounter Summary ---
Author Name Unknown Organization [place] Address [facility] [place] [place] [address] Care Team Providers Care Lesson Instructor Name Role Phone Nicanor Klein MD Unavailable Nicanor Klein MD Unavailable Nicanor Klein MD Unavailable Merrill Mejia MD Primary Care Provider [phone] Encounter Details Date Type Department Care Team [...] Sex Assigned at Male 09/28/2023 2:19 PM CAP COVERER Gender Identity Male 09/28/2023 2:19 PM CAP COVERER Sexual Orientation Straight 09/28/2023 2: 19 PM CAP COVERER documented as of this encounter Plan of Treatment Upcoming Encounters Date Type Department Care Team (Late st Contact Info) Description 05/14/2024 12:30 PM CDT Office Visit [facility] [address] [place] [address] Gail Post MD [address] [address] Anushka Carrasquillo MD [address] [facility] [address] [place], [place] [address] documented as of this encounter Visit Diagnoses Not on filedocumented in this encounter Care Teams Lesson Instructor Relationship Specialty Start Date End Date Merrill Mejia MD [facility] [address] [place] [address] PCP - General Family Medicine 10/10/23 10/24/23 Nicanor Klein MD [address] [place] [id number] [place] [address] Cardiovascular Disease 09/16/23 Nicanor Klein MD [address], [facility] [place] [address] Cardiovascular Disease 09/16/23 Nicanor Klein MD [address] [place] [id number] [place] [address] Assigned Heart and Vascular Provider 09/26/23 documented as of this encounter
--- OUTSIDE RECORDS SUMMARY | 2024-01-13 09:51 | XMS_ITS | Encounter Summary ---
Author Name Unknown Organization [place] Address [facility] [place] [address] Care Team Providers Care Process Design Engineer Name Role Phone Nicanor Patel MD Unavailable Nicanor Patel MD Unavailable Nicanor Patel MD Unavailable Merrill Mejia MD Primary Care Provider [phone] Reason for Visit * Reason Comments Irregular [...] laterality Episode of confusion Short Stay [address] [place] [address] Referral ID Status Reason Start Date Expiration Date Visits Re quested Visits Authorized [id number] 1 1 Encounter Details Date Type Department Care Team (Late st Contact Info) Description 10/15/2023 10:30 AM SCRAP SHEAR OPERATOR - 10/15/2023 10:45 AM SCRAP SHEAR OPERATOR [facility] PeriOP Services [address] [facility] [facility] [address] [place] [address] GENERIC ANESTHESIA PROVIDER cardioversion Social History Tobacco Use Types Packs/Day Years Used Date Smoking Tobacco: Never Alcohol Use Standard Drinks/Week Comments Yes 0 (1 standard drink = 0.6 oz pur e alcohol) Adolescent Education Answer Date Record ed Getting School Help Needed Not on file 06/09 Sex and Gender Information Value Date Recorded Sex Assigned at Male 09/28/2023 2:19 PM SCRAP SHEAR OPERATOR Gender Identity Male 09/28/2023 2:19 PM SCRAP SHEAR OPERATOR Sexual Orientation Straight 09/28/2023 2: 19 PM SCRAP SHEAR OPERATOR documented as of this encounter Last Filed Vital Signs Vital Sign Reading Time Taken Comments Blood Pressure 115/70 10/15/2023 7:34 AM SCRAP SHEAR OPERATOR Pulse 119 10/15/2023 7:34 AM SCRAP SHEAR OPERATOR Temperature 36.6 ??C (97.9 ??F) 10/15/2023 7:34 AM CS T Respiratory Rate 20 10/15/2023 7:34 AM SCRAP SHEAR OPERATOR Oxygen Saturation 94% 10/15/2023 7:34 AM SCRAP SHEAR OPERATOR Inhaled Oxygen Concentration - - Weight 96.3 kg (212 lb 3.2 oz) 10/15/2023 6:57 A M SCRAP SHEAR OPERATOR Height 185.4 cm (6' 1) 10/14/2023 5:59 PM SCRAP SHEAR OPERATOR Body Mass Index 27.82 10/14/2023 5:59 PM SCRAP SHEAR OPERATOR documented in this encounter Discharge Summaries * Gail Post MD - 10/16/2023 1:05 PM CST Images from the original note were not included. [facility] Discharge Summary Hospitalist Date of [...] below, scheduled for outpatient cardioversion 10/15. Continue EDGE TRIMMER medications which include Xarelto, losartan and metoprolol. [...] manage insulin with frequent episodes of hypoglycemia. *EDGE TRIMMER Regimen: Takes insulin Glargine 80-90 units at bed time, despite PCP recommendation that he takes 50 units. Last HbA1c 8.7% patient was on hypoglycemia protocol, was continued insulin here, metformin is on hold, continued on CHO diet there is concern whether he can manage his insulin, will arrange outpatient endocrine follow-up. Coronary artery disease Benign essential hypertension EDGE TRIMMER Regimen: Atenolol, losartan, xarelto and rosuvastatin EKG: Atrial fibrillation with rapid ventricular response with left axis deviation Possible Anterior infarct , age undetermined. Last ECHO: 10/01/23 EF 60-65%. Last stress test: 08/21/23 Negative for inducible myocardial ischemia or infarction. Follows with cardiology at [facility] Dr. Patel. Continue EDGE TRIMMER losartan, atenolol stopped. His EDGE TRIMMER statin is on hold, continue holding that [...] triglycerides 65, LDL 27, HDL 26. - EDGE TRIMMER rosuvastatin on hold, consider restarting at a [...] appears clear. ELO DIETRICH MD SYSTEM ID: [id number] XR Chest 2 Views Narrative CHEST TWO [...] Narrative Carter Ellis MD 10/16/2023 9:05 AM [facility] Procedure: EP Cardioversion External Date/Time: [...] the procedure a time out was called [place] Protocol: the Joint Commission [place] Protocol was followed Preparation: Patient was prepped [...] without bradycardia or pauses. No apparent complications. P SHEAR OPERATOR documented in this encounter Medications at [...] has all belongings. 48hr monitor in place. P SHEAR OPERATOR * Sarah Sheth PT - 10/16/2023 [...] (include personal factors and/or [facility] 83-year-old male, admitted on 10/14/2023, presented [...] Commands (Cognition) WFL;delayed response/completion;increased processing time needed (PALA) Pain Assessment Patient Currently in Pain No [...] Evaluation Time PT Eval, Low Complexity Minutes (92979) 12 Physical Therapy Goals PT Frequency One time eval and treatment only PT Predicted Duration/Target Date for Goal Attainment 10/16/23 PT Goals Transfers;Gait;Stairs PT: Transfers Modified independent;Sit to/from stand PT: Gait Supervision/stand-by assist;150 feet PT: Stairs Supervision/stand-by assist;Greater than 10 stairs (Single rail) Interventions Interventions Quick Adds Therapeutic Activity;Gait Training Therapeutic Activity Therapeutic Activities: dynamic activities to improve functional performance Minutes (61820) 10 Symptoms Noted During/After Treatment Fatigue Treatment Detail/Skilled Intervention Patient greeted seated on EOB. present and attentive to patient's needs. Patient very PALA but following commands appropriately. Patient agreeable to [...] with RN. Gait Training Gait Training Minutes (38444) 24 Symptoms Noted During/After Treatment (Gait Training) [...] rest neededbefore ascending stairs. Patient alternates between [id number] and step-to pattern when ascending stairs, again [...] (sum of timed and untimed services) 46 P SHEAR OPERATOR * Shashank Arellano, RN - 10/16/2023 9:08 AM CST Care Suites Post Procedure Note Patient Information Name: Ilan Alaniz Age: [age] year old Post Procedure Bedside report taken by receiving RN P SHEAR OPERATOR * Merlyn Lyon CNP - 10/16/2023 7:41 AM CST [facility] Cardiology Progress Note Date of Service: 10/16/2023 Primary Casino Cashier Manager: Dr. Patel Staff Casino Cashier Manager: Dr. Malik Assessment & Plan Ilan Alaniz [...] Rate control: Toprol XL 25 mg daily [EDGE TRIMMER atenolol 50 mg daily] S/p successful DCCV [...] Continue Toprol XL 25 mg daily, stop EDGE TRIMMER atenolol. Continue Xarelto 20 mg daily for [...] encounter: 95.7 kg (210 lb 14.4 oz). P SHEAR OPERATOR Associated attestation - Tian Malik MD - 10/16/2023 2:41 PM SCRAP SHEAR OPERATOR Physician Attestation I saw and evaluated Ilan Alaniz as part of a shared RN CLINICAL TRIALS/PA visit. I personally reviewed the vital signs, [...] Stated Goal for Today: prep for procedures P SHEAR OPERATOR * Liss Pride RN - 10/15/2023 4:39 PM CST [facility] Patient is currently receiving services with [facility]. The patient is currently receiving RN services. Patient's disease case manager rn and home health team have been notified that patient is under inpatient status [facility] Liaison will continue to follow patient during stay. Please provide orders to resume home care at time of discharge if appropriate. P SHEAR OPERATOR * Heather Parada RN - 10/15/2023 [...] met and patient is ready for discharge. P SHEAR OPERATOR * Bacilio Steele MD - 10/15/2023 10:40 AM CST [facility] Medicine Progress Note - Hospitalist [...] then admitted to inpatient. - Telemetry. - EDGE TRIMMER Atenolol switched to metoprolol per cardiology. - Continue EDGE TRIMMER Xarelto. - PRN IV metoprolol for sustained [...] - Telemetry. - Xarelto, metoprolol, losartan. - EDGE TRIMMER rosuvastatin on hold for now as noted [...] manage insulin with frequent episodes of hypoglycemia. *EDGE TRIMMER Regimen: Takes insulin Glargine 80-90 units at bed time, despite PCP recommendation that he takes 50 units. Last HbA1c 8.7% - Hypoglycemia protocol. - Preprandial and HS fingerstick checks or Q 4 hours while NPO. - Hold EDGE TRIMMER metformin. - Medium dose sliding scale insulin ordered. - EDGE TRIMMER lantus decreased to 30 units at bedtime. [...] insulin. Coronary artery disease Benign essential hypertension EDGE TRIMMER Regimen: Atenolol, losartan, xarelto and rosuvastatin EKG: Atrial fibrillation with rapid ventricular response with left axis deviation Possible Anterior infarct , age undetermined. Last ECHO: 10/01/23 EF 60-65%. Last stress test: 08/21/23 Negative for inducible myocardial ischemia or infarction. Follows with cardiology at [facility] Dr. Patel. - Telemetry. - Continue EDGE TRIMMER Losartan and Atenolol with hold parameters. - HOLD EDGE TRIMMER Crestor for now, consider restarting at a lower dose upon discharge. - Continue EDGE TRIMMER nitroglycerin SL PRN 0.4 mg SL tablet [...] triglycerides 65, LDL 27, HDL 26. - EDGE TRIMMER rosuvastatin on hold, consider restarting at a [...] following. Cardioversion. Bacilio Steele MD Hospitalist Service [facility] Securely message with Viktor (more info) Text page via [facility] Paging/Directory Interval History Ilan Alaniz was [...] No acute displaced fracture. PRECIOUS YOON MD P SHEAR OPERATOR * Heather Parada RN - 10/15/2023 [...] met and patient is ready for discharge. P SHEAR OPERATOR * Lauryn Sanchez RN - 10/15/2023 [...] met and patient is ready for discharge. P SHEAR OPERATOR * Lauryn Sanchez RN - 10/15/2023 [...] met and patient is ready for discharge. P SHEAR OPERATOR * Lauryn Sanchez RN - 10/14/2023 [...] met and patient is ready for discharge. P SHEAR OPERATOR * Heather Parada RN - 10/14/2023 6:47 [...] Patient Stated Goal for Today: pain management. P SHEAR OPERATOR * Heather Parada RN - 10/14/2023 5:14 PM CST RECEIVING UNIT ED HANDOFF REVIEW ED Nurse Handoff Report was reviewed by: Heather Parada RN on October 14, 2023 at 5:14 PM P SHEAR OPERATOR documented in this encounter H&P Notes * Dulce Fisher PA-C - 10/14/2023 1:42 PM CST [facility] History and Physical - Hospitalist [...] Nicanor Patel 09/23/23. - Telemetry - Continue EDGE TRIMMER Atenolol - Continue EDGE TRIMMER anticoagulation, with Xerelto - PRN IV metoprolol for sustained heart rate >120 - Monitor K+/Mg++, replace PRN - Cardiology consult with plan for cardioversion. - NPO at midnight until cardiology consult Insulin dependent type 2 diabetes Recurrent severe hypoglycemia *Persistent inability to manage insulin with frequent episodes of hypoglycemia *EDGE TRIMMER Regimen: Takes insulin Glargine 80-90 units at bed time, despite PCP recommendation that he takes 50 units. Last HbA1c 8.7% - Hypoglycemia protocol - Preprandial and HS fingerstick checks or Q 4 hours while NPO - Hold EDGE TRIMMER oral antiglycemics (Metformin) - Sliding scale insulin [...] 201* Coronary artery disease Benign essential hypertension EDGE TRIMMER Regimen: Atenolol, losartan, xarelto and rosuvastatin EKG: Atrial fibrillation with rapid ventricular response with left axis deviation Possible Anterior infarct , age undetermined Last ECHO: 10/01/23 EF 60-65% Last stress test: 08/21/23 Negative for inducible myocardial ischemia or infarction. Follows with cardiology at [facility] Dr. Patel - Telemetry-Yes - Continue EDGE TRIMMER Losartan, Atenolol with hold parameters - HOLD EDGE TRIMMER Crestor - Continue EDGE TRIMMER nitroglycerin SL PRN 0.4 mg SL tablet q5min times three doses for chest pain - Hold EDGE TRIMMER losartan for SBP less than 110 and Atenolol for HR less than 60 - PRN IV hydralazine available for SBP >180 - Monitor BP trend and need for medication adjustments Cognitive Dysfunction, progressive *Inability to manage and administer medications in a safe manner -OT for formal cognitive evaluation Dyslipidemia Baseline lipid panel unavailable - Continue EDGE TRIMMER Crestor Chronic kidney disease, stage 3A Baseline [...] Patient, and Patient's Family. Dominic Mukherjee APRN, CAREER SERVICES OFFICER Dulce Fisher PA-C Hospitalist Service [facility] Securely message with Sendoid (more info) Text page via [facility] Paging/Directory Chief Complaint Weakness and persistent [...] was also seen in the ED at [facility] on [facility]/01 with symptoms similar to that [...] History Past Surgical History: Procedure Laterality Date [facility] NONSPECIFIC PROCEDURE 2004 Cholecystectomy [facility] NONSPECIFIC PROCEDURE Appendectomy [facility] NONSPECIFIC PROCEDURE Lysis of adhesions [...] appears clear. ELO DIETRICH MD SYSTEM ID: [id number] P SHEAR OPERATOR Associated attestation - Michelle Eckert MD - 10/15/2023 3:12 PM SCRAP SHEAR OPERATOR Physician Attestation I have reviewed and [...] 9:05 AM CSTAssociated Order(s): EP Cardioversion External [facility] Procedure: EP Cardioversion External Date/Time: [...] the procedure a time out was called [place] Protocol: the Joint Commission [place] Protocol was followed Preparation: Patient was prepped [...] without bradycardia or pauses. No apparent complications. P SHEAR OPERATOR documented in this encounter Consult Notes [...] comments) Handoff Referral Completed: Yes Additional Information: Workers Compensation Adjuster checked in with patient and spouse at the bedside. Patient is cleared for discharge to home with resumption of homecare RN and PT should be added on. Spouse noted that [facility] has the patient scheduled for this Thursday 10/19. Workers Compensation Adjuster to send a message to the homecare Liaison regarding PT being added. No further needs identified. Rachel Palomares RN, BSN, ACM Care Transitions Specialist [facility] Care Transitions Specialist [phone] [place]. [address] [email or web address] Office: [phone] [facility] P SHEAR OPERATOR * Jane Norton PA-C - 10/16/2023 11:02 AM CSTAssociated Order(s): GASTROENTEROLOGY IP CONSULT [facility] Gastroenterology Consultation Ilan Alaniz [address] [place] [place] [address] 83 year old male Admission Date/Time: 10/14/2023 [...] avoid alcohol [facility] Office: [phone] (Dr. Dinh) (Jane Norton PA-C) P SHEAR OPERATOR Associated attestation - Sanya Dinh MD - 10/28/2023 7:30 AM SCRAP SHEAR OPERATOR History and physical exam was done [...] MD FACP TESFAYE OTOOLE * Zeke Crainndra, CUSTOMER ASSISTANT - 10/15/2023 4:23 PM CSTAssociated Order(s): CARE MANAGEMENT / SOCIAL WORK IP CONSULT Care Management Initial Consult General Information Assessment completed with: (pt's ), Type of CM/SW Visit: Initial Assessment Primary Care Provider verified and updated as needed: Readmission within the last 30 days: unable to assess Reason for Consult: discharge planning Advance Care Planning: Communication Assessment Patient's communication style: spoken language (Ghanaian or Bilingual) Hearing Difficulty or Deaf: yes [...] Chemical Dependency Status: Values/Beliefs: Spiritual, Cultural Beliefs, Restorationism Practices, Values that affect care: Additional Information: Pt is an 83 year old male who was admitted to hospital with concerns of decreased energy and persistent chest pain. Workers Compensation Adjuster met with pt at bedside. Introduced self and role. Pt is asleep. Workers Compensation Adjuster spoke with pt's .Introduced self and role. [...] had an intake this past Saturday with [facility] home care pr pt's for [facility]. She states they would likely be interested in PT/OT being added on if it were to be recommended by therapy. Pt's aware that care management is awaiting therapy recommendations. Workers Compensation Adjuster informed her if theyrecommend anything greater than home care then care management will stop by to discuss with pt and her. Pt's states no further questions or concerns at this time. SHELBI Pineda Social Work [facility] P SHEAR OPERATOR * Tian Malik MD - 10/15/2023 11:18 AM CST [facility] Cardiology Consultation Date of Admission: [...] he continues to have chest pain following anglican of sinus rhythm, will consider coronary angiography. [...] History Past Surgical History: Procedure Laterality Date [facility] NONSPECIFIC PROCEDURE 2004 Cholecystectomy [facility] NONSPECIFIC PROCEDURE Appendectomy [facility] NONSPECIFIC PROCEDURE Lysis of adhesions [...] HDL, LDL, TRIG, CHOLHDLRATIO in the last 76988 hours. Recent Labs Lab 10/15/23 0715 10/14/23 [...] appears clear. ELO DIETRICH MD SYSTEM ID: [id number] XR Chest 2 Views Narrative CHEST TWO [...] encounter: 96.3 kg (212 lb 3.2 oz). P SHEAR OPERATOR documented in this encounter ED Notes * Cyndee Miller RN - 10/14/2023 5:07 PM CST [facility] ED Nurse Handoff Report ED [...] Current: Stand with Assist Patient's Preferred language: Ghanaian Public Speaking Teacher Needed?: No Isolation: None Infection: Not Applicable [...] at bedside OBS brochure/video discussed/provided to patient/family: Sherman of person given brochure if not patient: Relationship to patient: For the majority of the shift this patient's behavior was Green. Behavioral interventions performed were . ED NURSE PHONE NUMBER: *[id number] P SHEAR OPERATOR * David Ahn RN - 10/14/2023 [...] WDL WDL Cognitive/Neuro/Behavioral WDL Cognitive/Neuro/Behavioral WDL WDL P SHEAR OPERATOR * Baldev Burton DO - 10/14/2023 12:38 PM CST PIT/Triage Evaluation Patient presented with chest pain and shortness of breath. The patient states that on 08/16/23, he began experiencing a tremendous central chest pain that radiated to his left chest and shoulder while walking up some stairs. He notes he was seen on the same day at [facility] and was given oxycodone which [...] He is seeing Dr. Patel as his outsole caser. Exam is notable for: General: Patient in [...] the hospital. Baldev Burton DO 10/14/23 1249 P SHEAR OPERATOR * Ilan Alves MD - 10/14/2023 [...] this year where he was seen at [facility] for A-fib. Allergies: Animal Dander No [...] History: Past Surgical History: Procedure Laterality Date [facility] NONSPECIFIC PROCEDURE 2004 Cholecystectomy [facility] NONSPECIFIC PROCEDURE Appendectomy [facility] NONSPECIFIC PROCEDURE Lysis of adhesions [...] by me General: Pt seen on hospital [facility], pleasant, cooperative, and alert to conversation. [...] Blood Pressure Ventricular Rate 103 Atrial Rate MS Interval QRS Duration 86 QT 290 QTc 379 P Yuma R AXIS -40 T Yuma 100 Interpretation ECG Atrial fibrillation with rapid [...] Ilan Alves* Ilan Alves MD 10/14/23 1717 P SHEAR OPERATOR documented in this encounter Miscellaneous Notes * Result Encounter Note - Triston Knight PA-C - 10/16/2023 4:33 PM SCRAP SHEAR OPERATOR Abnormal Zio results forwarded to Jean Claude Encarnacion, Cardiovascular Diseases at [facility] (pt hasappt 10/23). P SHEAR OPERATOR * Plan of Care - Wen Arciniega OTR - 10/16/2023 2:51 PM CST Occupational Therapy: Orders received. Chart reviewed and discussed with care team.? Occupational Therapy not indicated due to per PT, pt mobilizing well and ind in bathroom. Discharging home and no acute IP OT needs identified.? Defer discharge recommendations to care team.? Will complete orders. P SHEAR OPERATOR * Plan of Care - Sarah [...] his ability to participate in therapy session. P SHEAR OPERATOR * Plan of Care - Katelyn [...] Patient Stated Goal for Today: Go home P SHEAR OPERATOR * Pre-Procedure - Carter Ellis MD [...] data, medications, and the plan for sedation P SHEAR OPERATOR * Plan of Care - Lauryn [...] Stated Goal for Today: prep for procedures P SHEAR OPERATOR * Utilization Review - Roberto Pacheco MD - 10/15/2023 12:19 PM SCRAP SHEAR OPERATOR Admission Status; Secondary Review Determination Under [...] section 70.4. Sincerely, ROBERTO PACHECO MD System Change OverField Checker [facility]. P SHEAR OPERATOR * Plan of Care - Lauryn [...] Patient Stated Goal for Today: pain management. P SHEAR OPERATOR * Pharmacy-Admission Medication History - Bridgette Arciniega, [facility] - 10/14/2023 2:27 PM CST Pharmacist Admission [...] and typed health system med list from [facility]. -atenolol: spouse verified new atenolol has [...] not taking, finds ineffective. Changes made to EDGE TRIMMER medication list: Added: amlodipine, oxycodone, multivitamin, magnesium, [...] reviewed Medication History Completed By: Bridgette Arciniega [facility] 10/14/2023 2:27 PM EDGE TRIMMER Med List Medication Sig Note Last Dose [...] mcg by mouth daily 10/14/2023 at AM P SHEAR OPERATOR documented in this encounter Plan of Treatment Upcoming Encounters Date Type Department Care Team (Late st Contact Info) Description 05/14/2024 12:30 PM CDT Office Visit [facility] [address] [place] [address] Gail Post MD [address] [place] [address] Anushka Carrasquillo MD [address] [place] [address] Scheduled Referrals Name Type Priority Associated Diagnoses Orde r Schedule Adult Endocrinology Dish Room Worker Referral Referral Routine: Next available opening Type [...] AND PROVIDER INTERPRETATION Routine 10/16/2023 7:05 PM SCRAP SHEAR OPERATOR GLUCOSE BY METER Routine 10/16/2023 12:0 6 PM SCRAP SHEAR OPERATOR HEPATITIS A ANTIBODY IGM Routine 10/16/2023 10:22 AM SCRAP SHEAR OPERATOR EKG 12-LEAD, TRACING ONLY Routine 10/16/2023 10:04 AM SCRAP SHEAR OPERATOR US ABDOMEN LIMITED Routine 10/16/2023 9: 36 AM SCRAP SHEAR OPERATOR CARDIOVERSION EXTERNAL Routine 8:35 AM SCRAP SHEAR OPERATOR GLUCOSE BY METER Routine 10/16/2023 7:29 AM SCRAP SHEAR OPERATOR EKG 12-LEAD, TRACING ONLY STAT 10/16/2023 7:11 AM SCRAP SHEAR OPERATOR INR STAT 10/16/2023 6:08 AM SCRAP SHEAR OPERATOR MAGNESIUM STAT 10/16/2023 6:08 AM SCRAP SHEAR OPERATOR HEPATITIS C ANTIBODY Add-On 10/16/2023 6:08 AM SCRAP SHEAR OPERATOR HEPATITIS B SURFACE ANTIGEN Add-On 10/16/2023 6:08 AM SCRAP SHEAR OPERATOR COMPREHENSIVE METABOLIC PANEL STAT 10/16/2023 6:08 AM SCRAP SHEAR OPERATOR CBC WITH PLATELETS Routine 10/16/2023 6: 08 AM SCRAP SHEAR OPERATOR GLUCOSE BY METER Routine 10/16/2023 1:10 AM SCRAP SHEAR OPERATOR GLUCOSE BY METER Routine 10/15/2023 9:26 PM SCRAP SHEAR OPERATOR GLUCOSE BY METER Routine 10/15/2023 5:29 PM SCRAP SHEAR OPERATOR GLUCOSE BY METER Routine 10/15/2023 12:0 1 PM SCRAP SHEAR OPERATOR XR CHEST 2 VIEWS Routine 10/15/2023 8:09 AM SCRAP SHEAR OPERATOR GLUCOSE BY METER Routine 10/15/2023 7:39 AM SCRAP SHEAR OPERATOR TROPONIN T, HIGH SENSITIVITY Routine 10/15/2023 7:15 AM SCRAP SHEAR OPERATOR LIPID REFLEX TO DIRECT LDL PANEL Routine 10/15/2023 7:15 AM SCRAP SHEAR OPERATOR COMPREHENSIVE METABOLIC PANEL Routine 10/15/2023 7:15 AM SCRAP SHEAR OPERATOR CBC WITH PLATELETS Routine 10/15/2023 7: 15 AM SCRAP SHEAR OPERATOR GLUCOSE BY METER Routine 10/15/2023 2:13 AM SCRAP SHEAR OPERATOR GLUCOSE BY METER Routine 10/14/2023 10:1 1 PM SCRAP SHEAR OPERATOR LACTIC ACID WHOLE BLOOD STAT 10/14/19 6:53 PM SCRAP SHEAR OPERATOR GLUCOSE BY METER Routine 10/14/2023 5:42 PM SCRAP SHEAR OPERATOR INFLUENZA A/B, RSV, & SARS-COV2 PCR STAT 10/14/2023 4:40 PM SCRAP SHEAR OPERATOR TROPONIN T, HIGH SENSITIVITY STAT 10/14/2023 2:57 PM SCRAP SHEAR OPERATOR LACTIC ACID WHOLE BLOOD STAT 10/14/19 2:57 PM SCRAP SHEAR OPERATOR BLOOD CULTURE STAT 10/14/2023 2:28 PM SCRAP SHEAR OPERATOR BLOOD CULTURE STAT 10/14/2023 2:20 PM SCRAP SHEAR OPERATOR XR CHEST 2 VIEWS STAT 10/14/2023 1:12 PM SCRAP SHEAR OPERATOR EXTRA TUBE STAT 10/14/2023 12:53 PM SCRAP SHEAR OPERATOR EXTRA BLUE TOP TUBE STAT 10/14/2023 1 2:53 PM SCRAP SHEAR OPERATOR CBC WITH PLATELETS AND DIFFERENTIAL STAT 10/14/2023 12:53 PM SCRAP SHEAR OPERATOR TROPONIN T, HIGH SENSITIVITY STAT 10/14/2023 12:53 PM SCRAP SHEAR OPERATOR PROCALCITONIN Add-On 10/14/2023 12:53 PM SCRAP SHEAR OPERATOR CBC WITH PLATELETS & DIFFERENTIAL STAT 10/14/2023 12:53 PM SCRAP SHEAR OPERATOR MAGNESIUM Add-On 10/14/2023 12:53 PM SCRAP SHEAR OPERATOR LIPASE STAT 10/14/2023 12:53 PM SCRAP SHEAR OPERATOR HEMOGLOBIN A1C Add-On 10/14/2023 12:53 PM SCRAP SHEAR OPERATOR COMPREHENSIVE METABOLIC PANEL STAT 10/14/2023 12:53 PM SCRAP SHEAR OPERATOR EKG 12-LEAD, TRACING ONLY STAT 10/14/2023 12:41 PM SCRAP SHEAR OPERATOR documented in this encounter Results * HOLTER MONITOR 48 HOUR APPLICATION SCAN ANALYSIS AND PROVIDER INTERPRETATION (10/16/2023 7:05 PM SCRAP SHEAR OPERATOR) Anatomical Region Laterality Modality Other 10/16/2023 4:17 PM SCRAP SHEAR OPERATOR 10/21/2023 6:00 PM SCRAP SHEAR OPERATOR Narrative 10/21/2023 6:00 PM SCRAP SHEAR OPERATOR 1. Ilan De León was monitored for 48 hours. Quality of the tracing was good. Predominant rhythm was Atrial fibrillation ??(61% of the recording). Average HR was 112 bpm, maximum HR was 163 bpm at 12:42 PM (Day 1), minimum HR was 74 bpm at 6:18 AM ??(Day 1). MS interval measured 0.17 seconds, QRS duration 0.09 seconds, QT interval 0.297-0.336 seconds. There were zero pauses over 2.0 seconds. 2. There were 7,774 ventricular ectopic beats (3% [place]), 7,187 of these were isolated PVCs. There were 269 couplets and 15 ??triplets. There was one 4 beat ventricular run with a rate of 176 bpm at 6:15 PM (Day 2). 3. There were 8,313 supraventricular ectopic beats (3% [place]), 6,963 of these were isolated PACs. There [...] were noted. 10/19/2023 Confirmed by NICANOR PATEL ([id number]) on 10/21/2023 6:00:23 PM Procedure Note Nicanor Patel MD - 10/21/2023 1. Ilan De León was monitored for 48 hours. Quality of the tracingwas good. Predominant rhythm was Atrial fibrillation (61% of therecording). Average HR was 112 bpm, maximum HR was 163 bpm at 12:42 PM (Day 1),minimum HR was 74 bpm at 6:18 AM (Day 1). MS interval measured 0.17seconds, QRS duration 0.09 seconds, QT interval 0.297-0.336 seconds. There were zero pauses over 2.0 seconds. 2. There were 7,774 ventricular ectopic beats (3% [place]), 7,187 of thesewere isolated PVCs. There were 269 couplets and 15 triplets. There wasone 4 beat ventricular run with a rate of 176 bpm at 6:15 PM (Day 2). 3. There were 8,313 supraventricular ectopic beats (3% [place]), 6,963 ofthese were isolated PACs. There were [...] were noted. 10/19/2023 Confirmed by NICANOR PATEL ([id number]) on 10/21/2023 6:00:23 PM Merlyn Lyon [facility] CV CARDIAC SERVICES ORDERABLES * (ABNORMAL) Glucose by meter (10/16/2023 12:06 PM SCRAP SHEAR OPERATOR) [facility] [place] GLUCOSE BY METER POCT 154(H) 70 - 99 mg/dL 10/16/2023 12:16 PM SCRAP SHEAR OPERATOR LABORATORY POC Blood, Capillary BLOOD SPECIMEN / Unknown 10/16/2023 12:06 PM SCRAP SHEAR OPERATOR 10/16/2023 12:16 PM SCRAP SHEAR OPERATOR Michelle [facility] PO[facility] LABORAT[facility] POC [facility] Lab [address] 1st floor, [address] [place] [address], [facility] [phone] * Hepatitis A antibody IgM (10/16/2023 10:22 AM SCRAP SHEAR OPERATOR) Hepatitis A Antibody IgM Nonreactive Nonreactive 10/16/2023 3:37 PM SCRAP SHEAR OPERATOR [facility] Comment:Nonreactive results indicate either inadequate or delayed anti-HAV IgM response after known exposure to HAV or absence of acute or recent hepatitis A. Blood STRUCTURE OF RIGHT UPPER LIMB / Unknown Venipuncture / Unknown 10/16/2023 10:22 AM SCRAP SHEAR OPERATOR 10/16/2023 10:27 AM SCRAP SHEAR OPERATOR Gail Post MD LAB - BLOOD ORDERABL ES [facility] Core Lab [address] [facility] Building, Room [address] [address], [facility] [phone] * EKG 12-lead, tracing only (10/16/2023 10:04 AM SCRAP SHEAR OPERATOR) Systolic Blood Pressure mmHg RADIOLOGY RESULTS Diastolic Blood Pressure mmHg RADIOLOGY RESULTS Ventricular Rate 91 BPM RAD IOLOGY RESULTS Atrial Rate 91 BPM RADIOLOG Y RESULTS MS Interval 182 ms RADIOLOG Y RESULTS QRS Duration 80 ms RADIOLO GY RESULTS QT 330 ms RADIOLOGY RESULTS QTc 405 ms RADIOLOGY RESULTS P [place] 74 degrees RADIOLOGY RESULTS R AXIS 19 degrees RADIOLOGY RESULTS T [place] 213 degrees RADIOLOGY RESULTS Interpretation ECG Sinus rhythm with occasional Premature ventricular complexes and Premature atrial complexes Cannot rule out Anterior infarct , age undetermined Abnormal ECG When compared with ECG of 16-OCT-2023 07:11, (unconfirmed) Sinus rhythm has replaced Atrial fibrillation Confirmed by MD ISAAC, JULIEN ([id number]), acquisition editor Cole Pool ([id number]) on 10/18/2023 7:58:52 AM RADIOLOGY RESULTS 10/16/2023 10:0 4 AM SCRAP SHEAR OPERATOR 10/18/2023 7:58 AM SCRAP SHEAR OPERATOR Carter Ellis MD ECG ORDERABLES RADIOLOGY RESULTS * US Abdomen Limited (10/16/2023 9:36 AM SCRAP SHEAR OPERATOR) Anatomical Region Laterality Modality Abdomen/Pelvis Ultrasound Impressions 10/16/2023 10:25 AM SCRAP SHEAR OPERATOR IMPRESSION: 1. ??Hepatic steatosis, similar to previous. TRAVON HARRIS MD Narrative 10/16/2023 10:25 AM SCRAP SHEAR OPERATOR US ABDOMEN LIMITED 10/16/2023 9:36 AM [...] ORDERABLES * CARDIOVERSION EXTERNAL (10/16/2023 8:35 AM SCRAP SHEAR OPERATOR) Anatomical Region Laterality Modality Other Narrative 10/16/2023 8:35 AM SCRAP SHEAR OPERATOR Carter Ellis MD ? 10/16/2023 ??9:05 AM [facility] Procedure: EP Cardioversion External Date/Time: [...] procedure a time out was called ?? [place] Protocol: the Joint Commission [place] Protocol was followed ?? Preparation: Patient was [...] or pauses. No apparent complications. Merlyn Lyon CAREER SERVICES OFFICER CV ELECTROPHYSIOLOG Y ORDERABLES * (ABNORMAL) Glucose by meter (10/16/2023 7:29 AM SCRAP SHEAR OPERATOR) GLUCOSE BY METER POCT 128(H) 70 - 99 mg/dL 10/16/2023 7:36 AM SCRAP SHEAR OPERATOR LABORATORY POC Blood, Capillary BLOOD SPECIMEN / Unknown 10/16/2023 7:29 AM SCRAP SHEAR OPERATOR 10/16/2023 7:36 AM SCRAP SHEAR OPERATOR Michelle TONEY - [facility] POCT LABORATORY POC [facility] Acute [facility] Lab [address] 1[address] floor, [address] [place] [address], [facility] [phone] * EKG 12-lead, tracing only (10/16/2023 7:11 AM SCRAP SHEAR OPERATOR) Systolic Blood Pressure mmHg RADIOLOGY RESULTS Diastolic Blood Pressure mmHg RADIOLOGY RESULTS Ventricular Rate 108 BPM RAD IOLOGY RESULTS Atrial Rate 115 BPM RADIOLOG Y RESULTS MS Interval ms RADIOLOG Y RESULTS QRS Duration 84 ms RADIOLO GY RESULTS QT 308 ms RADIOLOGY RESULTS QTc 412 ms RADIOLOGY RESULTS P [place] degrees RADIOLOGY RESULTS R AXIS -31 degrees RADIOLOGY RESULTS T [place] 174 degrees RADIOLOGY RESULTS Interpretation ECG Atrial fibrillation with rapid ventricular response with premature ventricular or aberrantly conducted complexes Left axis deviation Nonspecific ST and T wave abnormality Abnormal ECG When compared with ECG of 14-OCT-2023 12:41, Nonspecific T wave abnormality now evident in Inferior leads Nonspecific T wave abnormality, worse in Lateral leads Confirmed by STACY FITZGERALD ([id number]), acquisition editor Cole Pool ([id number]) on 10/18/2023 8:02:41 AM RADIOLOGY RESULTS 10/16/2023 7:11 AM SCRAP SHEAR OPERATOR 10/18/2023 8:02 AM SCRAP SHEAR OPERATOR Michelle Eckert MD ECG ORDERABLES RADIOLOGY RESULTS * Hepatitis C antibody (10/16/2023 6:08 AM SCRAP SHEAR OPERATOR) Hepatitis C Antibody Nonreactive Nonreactive 10/16/2023 3:31 PM SCRAP SHEAR OPERATOR [facility] Comment:A nonreactive screen ing [...] Unknown Venipuncture / Unknown 10/16/2023 6:08 AM SCRAP SHEAR OPERATOR 10/16/2023 6:16 AM SCRAP SHEAR OPERATOR Gail Post MD LAB - BLOOD ORDERABL ES [facility] [place] Core Lab [address] [facility], Room [address] [place] [address], [facility] [phone] * Hepatitis B surface antigen (10/16/2023 6:08 AM SCRAP SHEAR OPERATOR) Hepatitis B Surface Antigen Nonreactive Nonreactive 10/16/2023 3:31 PM SCRAP SHEAR OPERATOR [facility] Blood STRUCTURE OF RIGHT HAND / Unknown Venipuncture / Unknown 10/16/2023 6:08 AM SCRAP SHEAR OPERATOR 10/16/2023 6:16 AM [facility] Gail Post MD LAB - BLOOD ORDERABL ES [facility] [place] [facility] Lab [address] [facility], [address] [address], [facility] [phone] * (ABNORMAL) Comprehensive metabolic panel (10/16/2023 6:08 AM [facility]) [facility] Sodium 141 135 - 145 mmol/L 10/16/2023 6:42 AM [facility] LABORATORY Comment:Reference intervals for this test were updated on 05/28/2023 to more accurately reflect our healthy population. There may be differences in the flagging of prior results with similar values performed with this method. Interpretation of those prior results can be made in the context of the updated reference intervals. Potassium 3.9 3.4 - 5.3 mmol/L 10/16/2023 6:42 AM [facility] LABORATORY Carbon Dioxide (CO2) 27 22 - 29 mmol/L 10/16/2023 6:42 AM [facility] LABORATORY Anion Gap 11 7 - 15 mmol/L 10/16/2023 6:42 AM [facility] LABORATORY Urea Nitrogen 27.2(H) 8.0 - 23.0 mg/dL 10/16/2023 6:42 AM [facility] LABORATORY Creatinine 1.38(H) 0.67 - 1.17 mg/dL 10/16/2023 6:42 AM [facility] LABORATORY GFR Estimate 51(L) >60 mL/min/1. 73m2 10/16/2023 6:42 AM [facility] LABORATORY Calcium 9.1 8.8 - 10.2 mg/dL 10/16/2023 6:42 AM [facility] LABORATORY Chloride 103 98 - 107 mmol/L 10/16/2023 6:42 AM [facility] LAB[facility]ORY Glucose 135(H) 70 - 99 mg/dL 10/16/2023 6:42 AM [facility] LABORATORY Alkaline Phosphatase 107 40 - 150 U/L 10/16/2023 6:42 AM [facility] LABORATORY Comment:Reference intervals for this test were updated on 07/16/2023 to more accurately reflect our healthy population. There may be differences in the flagging of prior results with similar values performed with this method. Interpretation of those prior results can be made in the context of the updated reference intervals. AST 193(H) 0 - 45 U/L 10/16/2023 6:42 AM [facility]ORATORY Comment:Reference intervals for this test were updated on 02/11/2023 to more accurately reflect our healthy population. There may be differences in the flagging of prior results with similar values performed with this method. Interpretation of those prior results can be made in the context of the updated reference intervals. ALT 240(H) 0 - 70 U/L 10/16/2023 6:42 AM [facility] Comment:Reference intervals for this test were updated on 02/11/2023 to more accurately reflect our healthy population. There may be differences in the flagging of prior results with similar values performed with this method. Interpretation of those prior results can be made in the context of the updated reference intervals. Protein Total 6.4 6.4 - 8.3 g/dL 10/16/2023 6:42 AM [facility] LABORATORY Albumin 2.9(L) 3.5 - 5.2 g/dL 10/16/2023 6:42 AM [facility] LABORATORY Bilirubin Total 0.3 <=1.2 mg/dL 10/16/2023 6:42 AM [facility] LABORATORY Blood STRUCTURE OF RIGHT HAND / Unknown Venipuncture / Unknown 10/16/2023 6:08 AM SCRAP SHEAR OPERATOR 10/16/2023 6:16 AM [facility] Bacilio Steele MD LAB - BLOOD OR DERABLES LABORATORY [facility] Acute [facility] Lab [address] 1[address] floor, [address] [place] [address], [facility] [phone] * (ABNORMAL) CBC with platelets (10/16/2023 6:08 AM [facility]) [facility] WBC Count 10.7 4.0 - 11.0 10e3/uL 10/16/2023 6:22 AM [facility] LABORATORY RBC Count 4.08(L) 4.40 - 5.90 10e6/uL 10/16/2023 6:22 AM [facility] LABORATORY Hemoglobin 12.6(L) 13.3 - 17.7 g/dL 10/16/2023 6:22 AM [facility] LABORATORY Hematocrit 38.5(L) 40.0 - 53.0 % 10/16/2023 6:22 AM [facility] LABORATORY MCV 94 78 - 100 fL 10/16/2023 6:22 AM [facility] LABORATORY MCH 30.9 26.5 - 33.0 pg 10/16/2023 6:22 AM [facility] LABORATORY MCHC 32.7 31.5 - 36.5 g/dL 10/16/2023 6:22 AM [facility] LABORATORY RDW 12.8 10.0 - 15.0 % 10/16/2023 6:22 AM [facility] LABORATORY Platelet Count 493(H) 150 - 450 10e3/uL 10/16/2023 6:22 AM [facility] LABORATORY Blood STRUCTURE OF RIGHT HAND / Unknown Venipuncture / Unknown 10/16/2023 6:08 AM SCRAP SHEAR OPERATOR 10/16/2023 6:16 AM SCRAP SHEAR OPERATOR Bacilio Steele MD LAB - BLOOD OR DERABLES [facility] Lab [address] 1[address], [address] [place] [address], [facility] [phone] * Magnesium (10/16/2023 6:08 AM SCRAP SHEAR OPERATOR) Magnesium 1.9 1.7 - 2.3 mg/dL 10/16/2023 6:42 AM [facility] LABORATORY Blood STRUCTURE OF RIGHT HAND / Unknown Venipuncture / Unknown 10/16/2023 6:08 AM SCRAP SHEAR OPERATOR 10/16/2023 6:16 AM SCRAP SHEAR OPERATOR Merlyn Lyon CNP LAB - BLOOD ORDERAB LES [facility] Lab [address] 1[address], [address] [place] [address], [facility] [phone] * (ABNORMAL) INR (10/16/2023 6:08 AM SCRAP SHEAR OPERATOR) INR 3.26(H) 0.85 - 1.15 10/16/2023 6:45 AM SCRAP SHEAR OPERATOR LABORATORY Blood STRUCTURE OF RIGHT HAND / Unknown Venipuncture / Unknown 10/16/2023 6:08 AM SCRAP SHEAR OPERATOR 10/16/2023 6:16 AM SCRAP SHEAR OPERATOR Merlyn Lyon [facility] LAB - BLOOD ORDERAB LES [facility] Lab [address], [address] [place] [address], [place] [phone] * (ABNORMAL) Glucose by meter (10/16/2023 1:10 AM SCRAP SHEAR OPERATOR) GLUCOSE BY METER POCT 169(H) 70 - 99 mg/dL 10/16/2023 1:20 AM SCRAP SHEAR OPERATOR LABORATORY POC Blood, Capillary BLOOD SPECIMEN / Unknown 10/16/2023 1:10 AM SCRAP SHEAR OPERATOR 10/16/2023 1:20 AM SCRAP SHEAR OPERATOR Michelle STERLING POCT [facility] Lab [address] 1[address] floor, [address] [place] [address], [place] [phone] * (ABNORMAL) Glucose by meter (10/15/2023 9:26 PM SCRAP SHEAR OPERATOR) GLUCOSE BY METER POCT 219(H) 70 - 99 mg/dL 10/15/2023 9:33 PM SCRAP SHEAR OPERATOR LABORATORY POC Blood, Capillary BLOOD SPECIMEN / Unknown 10/15/2023 9:26 PM SCRAP SHEAR OPERATOR 10/15/2023 9:33 PM SCRAP SHEAR OPERATOR Michelle STERLING POCT [facility] Lab [address] 1[address], [address] [place] [address], [facility] [phone] * (ABNORMAL) Glucose by meter (10/15/2023 5:29 PM SCRAP SHEAR OPERATOR) GLUCOSE BY METER POCT 218(H) 70 - 99 mg/dL 10/15/2023 5:40 PM SCRAP SHEAR OPERATOR LABORATORY POC Blood, Capillary BLOOD SPECIMEN / Unknown 10/15/2023 5:29 PM SCRAP SHEAR OPERATOR 10/15/2023 5:40 PM SCRAP SHEAR OPERATOR Michelle Eckert MD LAB - [facility] POCT LABORATORY POC [facility] Lab [address] 1[address], [address] [place] [address], [place] [phone] * (ABNORMAL) Glucose by meter (10/15/2023 12:01 PM SCRAP SHEAR OPERATOR) GLUCOSE BY METER POCT 130(H) 70 - 99 mg/dL 10/15/2023 12:07 PM SCRAP SHEAR OPERATOR LABORATORY POC Blood, Capillary BLOOD SPECIMEN / Unknown 10/15/2023 12:01 PM SCRAP SHEAR OPERATOR 10/15/2023 12:07 PM SCRAP SHEAR OPERATOR Michelle TONEY - [facility] POCT LABORATORY POC [facility] Lab [address] 1[address], [address] [place] [address], [facility] [phone] * XR Chest 2 Views (10/15/2023 8:09 AM SCRAP SHEAR OPERATOR) Anatomical Region Laterality Modality Chest Digital Radiogra phy Impressions 10/15/2023 9:13 AM SCRAP SHEAR OPERATOR IMPRESSION: Stable cardiac silhouette which is partially obscured. Similar opacification of the left lung base which is favored secondary to a moderate-sized left pleural effusion with underlying consolidation not excluded. Similar calcified granuloma of the right lung base. No discernible pneumothorax. No acute displaced fracture. PRECIOUS YOON MD Narrative 10/15/2023 9:13 AM SCRAP SHEAR OPERATOR CHEST TWO VIEWS 10/15/2023 8:09 AM [...] (ABNORMAL) Glucose by meter (10/15/2023 7:39 AM SCRAP SHEAR OPERATOR) GLUCOSE BY METER POCT 122(H) 70 - 99 mg/dL 10/15/2023 7:46 AM SCRAP SHEAR OPERATOR LABORATORY POC Blood, Capillary BLOOD SPECIMEN / Unknown 10/15/2023 7:39 AM SCRAP SHEAR OPERATOR 10/15/2023 7:46 AM SCRAP SHEAR OPERATOR Michelle TONEY - [facility] POCT LABORATORY POC [facility] Lab [address], [address] [place] [address], [facility] [phone] * (ABNORMAL) Lipid panel reflex to direct LDL (10/15/2023 7:15 AM SCRAP SHEAR OPERATOR) Cholesterol 66 <200 mg/dL 10/15/2023 11:29 AM SCRAP SHEAR OPERATOR [facility] Triglycerides 65 <150 mg/dL 10/15/2023 11:29 AM SCRAP SHEAR OPERATOR [facility] Direct Measure HDL 26(L) >=40 mg/dL 2023 11:29 AM SCRAP SHEAR OPERATOR [facility] LDL Cholesterol Calculated 27 <=100 mg/dL 10/15/2023 11:29 AM SCRAP SHEAR OPERATOR [facility] Non HDL Cholesterol 40 <130 mg/dL 10/15/2023 11:29 AM SCRAP SHEAR OPERATOR [facility] Patient Fasting > 8hrs? Yes 10/15/2023 11:29 AM [facility] LABORATORY Blood STRUCTURE OF RIGHT UPPER LIMB / Unknown Venipuncture / Unknown 10/15/2023 7:15 AM SCRAP SHEAR OPERATOR 10/15/2023 7:39 AM SCRAP SHEAR OPERATOR Narrative [facility] - 10/15/2023 11:29 AM SCRAP SHEAR OPERATOR Cholesterol Desirable: ??<200 mg/dL Triglycerides Normal: [...] LAB - BLOOD ORDERABLES Performing Organization Address City/State/[facility] Co de Phone Number [facility] [place] Core Lab [address] [facility] [address], [address] [place] [address], [place] [phone] LABORATORY [facility] Lab [address], [address] [place] [address], [place] [phone] * (ABNORMAL) Troponin T, High Sensitivity (10/15/2023 7:15 AM SCRAP SHEAR OPERATOR) Troponin T, High Sensitivity 30(H) <=22 ng/L 10/15/2023 8:11 AM [facility] LABORATORY Comment: Either a High Sensitivity Troponin [...] Unknown Venipuncture / Unknown 10/15/2023 7:15 AM SCRAP SHEAR OPERATOR 10/15/2023 7:39 AM [facility] Dulce Fisher PA-C LAB - BLOOD ORDERABLES LABORATORY [facility] Lab [address], [address] [place] [address], [facility] [phone] * (ABNORMAL) CBC with platelets (10/15/2023 7:15 AM [facility]) WBC Count 15.3(H) 4.0 - 11.0 10e3/uL 10/15/2023 7:43 AM [facility] LABORATORY RBC Count 4.00(L) 4.40 - 5.90 10e6/uL 10/15/2023 7:43 AM [facility] LABORATORY Hemoglobin 12.4(L) 13.3 - 17.7 g/dL 10/15/2023 7:43 AM [facility] LABORATORY Hematocrit 36.9(L) 40.0 - 53.0 % 10/15/2023 7:43 AM [facility] LABORATORY MCV 92 78 - 100 fL 10/15/2023 7:43 AM [facility] LABORATORY MCH 31.0 26.5 - 33.0 pg 10/15/2023 7:43 AM [facility] LABORATORY MCHC 33.6 31.5 - 36.5 g/dL 10/15/2023 7:43 AM [facility] LABORATORY RDW 12.6 10.0 - 15.0 % 10/15/2023 7:43 AM [facility] LABORATORY Platelet Count 566(H) 150 - 450 10e3/uL 10/15/2023 7:43 AM [facility] LABORATORY Blood STRUCTURE OF RIGHT UPPER LIMB / Unknown Venipuncture / Unknown 10/15/2023 7:15 AM [facility] 10/15/2023 7:39 AM [facility] Dulce Fisher PA-C LAB - BLOOD ORDERABLES LABORATORY [facility] Lab [address], [address] [place] [address], [facility] [phone] * (ABNORMAL) Comprehensive metabolic panel (10/15/2023 7:15 AM [facility]) Sodium 138 135 - 145 mmol/L 10/15/2023 8:11 AM [facility]AT[facility] Comment:Reference intervals for this test were updated on 05/28/2023 to more accurately reflect our healthy population. There may be differences in the flagging of prior results with similar values performed with this method. Interpretation of those prior results can be made in the context of the updated reference intervals. Potassium 3.8 3.4 - 5.3 mmol/L 10/15/2023 8:11 AM [facility] LAB[facility]ATORY Carbon Dioxide (CO2) 26 22 - 29 mmol/L 10/15/2023 8:11 AM [facility] Anion Gap 12 7 - 15 mmol/L 10/15/2023 8:11 AM [facility] Urea Nitrogen 26.1(H) 8.0 - 23.0 mg/dL 10/15/2023 8:11 AM [facility] LABORATORY Creatinine 1.41(H) 0.67 - 1.17 mg/dL 10/15/2023 8:11 AM [facility] LABORAT[facility] GFR Estimate 49(L) >60 mL/min/1. 73m2 10/15/2023 8:11 AM [facility] LAB[facility]ORY Calcium 9.0 8.8 - 10.2 mg/dL 10/15/2023 8:11 AM [facility] Chloride 100 98 - 107 mmol/L 10/15/2023 8:11 AM [facility] Glucose 120(H) 70 - 99 mg/dL 10/15/2023 8:11 AM [facility] LAB[facility]ORY Alkaline Phosphatase 87 40 - 150 U/L 10/15/2023 8:11 AM [facility] Comment:Reference intervals for this test were updated on 07/16/2023 to more accurately reflect our healthy population. There may be differences in the flagging of prior results with similar values performed with this method. Interpretation of those prior results can be made in the context of the updated reference intervals. AST 64(H) 0 - 45 U/L 10/15/2023 8:11 AM [facility] Comment:Reference intervals for this test were updated on 02/11/2023 to more accurately reflect our healthy population. There may be differences in the flagging of prior results with similar values performed with this method. Interpretation of those prior results can be made in the context of the updated reference intervals. ALT 123(H) 0 - 70 U/L 10/15/2023 8:11 AM [facility] Comment:Reference intervals for this test were updated on 02/11/2023 to more accurately reflect our healthy population. There may be differences in the flagging of prior results with similar values performed with this method. Interpretation of those prior results can be made in the context of the updated reference intervals. Protein Total 6.4 6.4 - 8.3 g/dL 10/15/2023 8:11 AM [facility] Albumin 3.1(L) 3.5 - 5.2 g/dL 10/15/2023 8:11 AM [facility] Bilirubin Total 0.5 <=1.2 mg/dL 10/15/2023 8:11 AM [facility] Blood STRUCTURE OF RIGHT UPPER LIMB / Unknown Venipuncture / Unknown 10/15/2023 7:15 AM [facility] 10/15/2023 7:39 AM [facility] Dulce Fisher PA-C LAB - BLOOD ORDERABLES LABORATORY [facility] [address], [address] [place] [address], [facility] [phone] * (ABNORMAL) Glucose by meter (10/15/2023 2:13 AM [employer] OPERATOR) GLUCOSE BY METER POCT 171(H) 70 - 99 mg/dL 10/15/2023 2:20 AM [facility] LABORATORY POC Blood, Capillary BLOOD SPECIMEN / Unknown 10/15/2023 2:13 AM [employer] 10/15/2023 2:20 AM [employer] Michelle Eckert MD LAB - BEAKER POCT LABORATORY POC [facility] [address] 1[address], [address] [place] [address], [place] [phone] * (ABNORMAL) Glucose by meter (10/14/2023 10:11 PM SCRAP SHEAR OPERATOR) GLUCOSE BY METER POCT 221(H) 70 - 99 mg/dL 10/14/2023 10:19 PM SCRAP SHEAR OPERATOR LABORATORY POC Blood, Capillary BLOOD SPECIMEN / Unknown 10/14/2023 10:11 PM SCRAP SHEAR OPERATOR 10/14/2023 10:19 PM SCRAP SHEAR OPERATOR Michelle TONEY - BEAKER POCT LABORATORY POC [facility] [address], [address] [place] [address], [place] [phone] * Lactic acid whole blood (10/14/2023 6:53 PM SCRAP SHEAR OPERATOR) Lactic Acid 1.4 0.7 - 2.0 mmol/L 10/14/2023 7:02 PM SCRAP SHEAR OPERATOR LABORATORY Blood STRUCTURE OF RIGHT HAND / Unknown Venipuncture / Unknown 10/14/2023 6:53 PM SCRAP SHEAR OPERATOR 10/14/2023 6:59 PM SCRAP SHEAR OPERATOR Dulce Fisher PA-C LAB - BLOOD ORDERABLES LABORATORY [facility] [address], [address] [place] [address], [facility] [phone] * (ABNORMAL) Glucose by meter (10/14/2023 5:42 PM SCRAP SHEAR OPERATOR) GLUCOSE BY METER POCT 134(H) 70 - 99 mg/dL 10/14/2023 6:38 PM SCRAP SHEAR OPERATOR LABORATORY POC Blood, Capillary BLOOD SPECIMEN / Unknown 10/14/2023 5:42 PM SCRAP SHEAR OPERATOR 10/14/2023 6:38 PM SCRAP SHEAR OPERATOR Michelle Eckert MD LAB - BEAKER POCT LABORATORY POC [facility] [address], [address] [place] [address], [facility] [phone] * Asymptomatic Influenza A/B, RSV, & SARS-CoV2 PCR (COVID-19) Nasopharyngeal (10/14/2023 4:40 PM SCRAP SHEAR OPERATOR) Influenza A PCR Negative Negative 10/14/2023 6:12 PM SCRAP SHEAR OPERATOR LABORATORY Influenza B PCR Negative Negative 10/14/2023 6:12 PM SCRAP SHEAR OPERATOR LABORATORY RSV PCR Negative Negative 10/14/2023 6:12 PM SCRAP SHEAR OPERATOR LABORATORY SARS CoV2 PCR Negative Negative 10/14/2023 6:12 PM SCRAP SHEAR OPERATOR LABORATORY Comment:NEGATIVE: SARS-CoV-2 (COVID-19) RNA not detected, presumed negative. Swab NASOPHARYNGEAL STRUCTURE / Unknown Non-blood Collection / Unknown 10/14/2023 4:40 PM SCRAP SHEAR OPERATOR 10/14/2023 4:50 PM SCRAP SHEAR OPERATOR Narrative LABORATORY - 10/14/2023 6:12 PM SCRAP SHEAR OPERATOR Testing was performed using the Xpert Xpress CoV2/Flu/RSV Assay on the [employer] GeneXpert Instrument. This test should be ordered [...] management. This test was validated by the [facility]. These laboratories are certified under the Clinical Laboratory Improvement Amendments of 1988 (CLIA-88) as qualified to perform high complexity laboratory testing. Dulce Fisher PA-C LAB - MICRO GENERAL ORDERABLES LABORATORY [facility] [address] 1[address] floor, [address] [place] [address], [facility] [phone] * (ABNORMAL) Troponin T, High Sensitivity (10/14/2023 2:57 PM SCRAP SHEAR OPERATOR) Pathologist [facility] Troponin T, High Sensitivity 24(H) <=22 ng/L 10/14/2023 3:30 PM SCRAP SHEAR OPERATOR LABORATORY Comment: Either a High Sensitivity [...] Unknown Venipuncture / Unknown 10/14/2023 2:57 PM SCRAP SHEAR OPERATOR 10/14/2023 3:04 PM SCRAP SHEAR OPERATOR Dulce Fisher PA-C LAB - BLOOD ORDERABLES LABORATORY [facility] [address], [address] [place] [address], [facility] [phone] * (ABNORMAL) Lactic Acid STAT (10/14/2023 2:57 PM SCRAP SHEAR OPERATOR) Lactic Acid 3.1(H) 0.7 - 2.0 mmol/L 10/14/2023 3:15 PM SCRAP SHEAR OPERATOR LABORATORY Blood BLOOD SPECIMEN / Unknown Venipuncture / Unknown 10/14/2023 2:57 PM SCRAP SHEAR OPERATOR 10/14/2023 3:04 PM SCRAP SHEAR OPERATOR Dulce Fisher PA-C LAB - BLOOD ORDERABLES LABORATORY [facility] [address], [address] [place] [address], [place] [phone] * Blood Culture Hand, Right (10/14/2023 2:28 PM SCRAP SHEAR OPERATOR) Culture No Growth 10/19/2023 5:32 PM SCRAP SHEAR OPERATOR [facility] Blood STRUCTURE OF RIGHT HAND / Unknown Venipuncture / Unknown 10/14/2023 2:28 PM SCRAP SHEAR OPERATOR 10/14/2023 2:35 PM SCRAP SHEAR OPERATOR Narrative [facility] - 10/19/2023 5:32 PM SCRAP SHEAR OPERATOR Only an Aerobic Blood Culture Bottle was collected, interpret results with caution. Ilan Batres AB - MICRO GENERAL ORDERABLES [facility] LABORATORY [facility] Inf. Diseases Di[facility]. Lab [address] [facility], [address] [place] [address], [place] [phone] * Blood Culture Hand, Left (10/14/2023 2:20 PM SCRAP SHEAR OPERATOR) Culture No Growth 10/19/2023 5:32 PM SCRAP SHEAR OPERATOR [facility] LABORAT[facility] Blood STRUCTURE OF LEFT HAND / Unknown Venipuncture / Unknown 10/14/2023 2:20 PM SCRAP SHEAR OPERATOR 10/14/2023 2:35 PM SCRAP SHEAR OPERATOR Narrative [facility] LABORAT[facility] - 10/19/2023 5:32 PM SCRAP SHEAR OPERATOR Only an Aerobic Blood Culture Bottle was collected, interpret results with caution. Ilan Alves MD L AB - MICRO GENERAL ORDERABLES [facility] LABORATORY [facility] Inf. Diseases Diag. Lab [address] [facility], [address] [place] [address], [facility] [phone] * Chest XR, PA & LAT (10/14/2023 1:12 PM SCRAP SHEAR OPERATOR) Anatomical Region Laterality Modality Chest Digital Radiogra phy Impressions 10/14/2023 6:08 PM SCRAP SHEAR OPERATOR IMPRESSION: New finding of small-moderate left pleural fluid. New consolidation or atelectasis at the left lung base. Obscured cardiac silhouette. Right lung appears clear. ELO DIETRICH MD SYSTEM ID: ??[id number] Narrative 10/14/2023 6:08 PM SCRAP SHEAR OPERATOR CHEST TWO VIEWS ??10/14/2023 1:12 PM HISTORY: Chest pain. COMPARISON: CT chest 08/16/2023. Procedure Note Elo Dietrich MD - 10/14/2023 CHEST TWO VIEWS 10/14/2023 1:12 PM HISTORY: Chest pain. COMPARISON: CT chest 08/16/2023. IMPRESSION: New finding of small-moderate left pleural fluid. New consolidation or atelectasis at the left lung base. Obscured cardiac silhouette. Right lung appears clear. ELO DIETRICH MD SYSTEM ID: [id number] Baldev Burton DO IMG DIAGNO STIC IMAGING ORDERABLES * (ABNORMAL) Hemoglobin A1c (10/14/2023 12:53 PM SCRAP SHEAR OPERATOR) Hemoglobin A1C 8.4(H) <5.7 % 10/14/2023 4:04 PM SCRAP SHEAR OPERATOR LABORATORY Comment: Normal <5.7% Prediabetes 5.7-6.4% ?? Diabetes 6.5% or higher Note: Adopted from ADA consensus guidelines. Blood STRUCTURE OF LEFT UPPER LIMB / Unknown Venipuncture / Unknown 10/14/2023 12:53 PM SCRAP SHEAR OPERATOR 10/14/2023 12:57 PM SCRAP SHEAR OPERATOR Dulce Fisher PA-C LAB - BLOOD ORDERABLES LABORATORY [facility] [address], [address], [place] [address], [facility] [phone] * Magnesium (10/14/2023 12:53 PM SCRAP SHEAR OPERATOR) Magnesium 1.8 1.7 - 2.3 mg/dL 10/14/2023 3:40 PM SCRAP SHEAR OPERATOR LABORATORY Blood STRUCTURE OF LEFT UPPER LIMB / Unknown Venipuncture / Unknown 10/14/2023 12:53 PM SCRAP SHEAR OPERATOR 10/14/2023 12:57 PM SCRAP SHEAR OPERATOR Dulce Fisher PA-C LAB - BLOOD ORDERABLES Performing Organization Address City/[facility]/ZIP Co de Phone Number LABORATORY [facility] [address], [address], [place] [address], [facility] [phone] * Procalcitonin (10/14/2023 12:53 PM SCRAP SHEAR OPERATOR) Procalcitonin 0.07 <0.50 ng/mL 10/14/2023 2:31 PM SCRAP SHEAR OPERATOR LABORATORY Comment: Interpretation and Recommendations <0.5 [...] See Procalcitonin Guidance document for more details. [email or web address] Factors that may affect PCT levels (not [...] Unknown Venipuncture / Unknown 10/14/2023 12:53 PM SCRAP SHEAR OPERATOR 10/14/2023 12:57 PM SCRAP SHEAR OPERATOR Dulce Fisher PA-C LAB - BLOOD ORDERABLES LABORATORY [facility] [address], [address] [place] [address], [facility] [phone] * Extra Blue Top Tube (10/14/2023 12:53 PM SCRAP SHEAR OPERATOR) [facility] Hold Specimen [facility] 10/14/2023 2:04 PM SCRAP SHEAR OPERATOR LABORATORY Blood STRUCTURE OF LEFT UPPER LIMB / Unknown Venipuncture / Unknown 10/14/2023 12:53 PM SCRAP SHEAR OPERATOR 10/14/2023 12:57 PM SCRAP SHEAR OPERATOR Baldev Burton DO LAB - BLOO D ORDERABLES LABORATORY [facility] [address], [address] [place] [address], [facility] [phone] * (ABNORMAL) CBC with platelets and differential (10/14/2023 12:53 PM SCRAP SHEAR OPERATOR) WBC Count 18.5(H) 4.0 - 11.0 10e3/uL 10/14/2023 1:02 PM [facility] LABORATORY RBC Count 4.25(L) 4.40 - 5.90 10e6/uL 10/14/2023 1:02 PM [facility] LABORATORY Hemoglobin 13.1(L) 13.3 - 17.7 g/dL 10/14/2023 1:02 PM [facility] LABORATORY Hematocrit 40.0 40.0 - 53.0 % 10/14/2023 1:02 PM [facility] LABORATORY MCV 94 78 - 100 fL 10/14/2023 1:02 PM [facility] LABORATORY MCH 30.8 26.5 - 33.0 pg 10/14/2023 1:02 PM [facility] LABORATORY MCHC 32.8 31.5 - 36.5 g/dL 10/14/2023 1:02 PM [facility] LABORATORY RDW 12.7 10.0 - 15.0 % 10/14/2023 1:02 PM [facility] LABORATORY Platelet Count 574(H) 150 - 450 10e3/uL 10/14/2023 1:02 PM [facility] LABORATORY % Neutrophils 83 % 10/14/2023 1:02 PM [facility]AT[facility] % Lymphocytes 10 % 10/14/2023 1:02 PM [facility]AT[facility] % Monocytes 6 % 10/14/2023 1:02 PM [facility]AT[facility] % Eosinophils 0 % 10/14/2023 1:02 PM [facility]ATORY % Basophils 0 % 10/14/2023 1:02 PM [facility]AT[facility] % Immature Granulocytes 1 % 10/14/2023 1:02 PM [facility] LABORATORY NRBCs per 100 WBC 0 <1 /100 024 1:02 PM [facility] LABORATORY Absolute Neutrophils 15.2(H) 1.6 - 8.3 10e3/uL 10/14/2023 1:02 PM [facility] LABORATORY Absolute Lymphocytes 1.9 0.8 - 5.3 10e3/uL 10/14/2023 1:02 PM [facility]ATORY Absolute Monocytes 1.1 0.0 - 1.3 10e3/uL 10/14/2023 1:02 PM [facility]AT[facility] Absolute Eosinophils 0.0 0.0 - 0.7 10e3/uL 10/14/2023 1:02 PM [facility]AT[facility] Absolute Basophils 0.1 0.0 - 0.2 10e3/uL 10/14/2023 1:02 PM [facility]AT[facility] Absolute Immature Granulocytes 0.1 <=0.4 10e3/uL 10/14/2023 1:02 PM [facility]ATORY Absolute NRBCs 0.0 10e3/uL 10/14/2023 1:02 PM [facility]ORATORY Blood STRUCTURE OF LEFT UPPER LIMB / Unknown Venipuncture / Unknown 10/14/2023 12:53 PM SCRAP SHEAR OPERATOR 10/14/2023 12:57 PM SCRAP SHEAR OPERATOR Baldev Burton DO LAB - BLOO D ORDERABLES LABORATORY [facility] [address], [address] [place] [address], [facility] [phone] * (ABNORMAL) Troponin T, High Sensitivity (10/14/2023 12:53 PM SCRAP SHEAR OPERATOR) Pathologist [facility] Troponin T, High Sensitivity 25(H) <=22 ng/L 10/14/2023 1:22 PM SCRAP SHEAR OPERATOR LABORATORY Comment: Either a High Sensitivity [...] Unknown Venipuncture / Unknown 10/14/2023 12:53 PM SCRAP SHEAR OPERATOR 10/14/2023 12:57 PM SCRAP SHEAR OPERATOR Baldev Burton LAB - BLOO D ORDERABLES LABORATORY [facility] [address], [address], [place] [address], [facility] [phone] * Lipase (10/14/2023 12:53 PM SCRAP SHEAR OPERATOR) Lipase 60 13 - 60 U/L 10/14/2023 1:22 PM SCRAP SHEAR OPERATOR LABORATORY Blood STRUCTURE OF LEFT UPPER LIMB / Unknown Venipuncture / Unknown 10/14/2023 12:53 PM SCRAP SHEAR OPERATOR 10/14/2023 12:57 PM SCRAP SHEAR OPERATOR Baldev Burton LAB - BLOO D ORDERABLES LABORATORY [facility] [address], [address] [address], [facility] [phone] * (ABNORMAL) Comprehensive metabolic panel (10/14/2023 12:53 PM SCRAP SHEAR OPERATOR) Sodium 134(L) 135 - 145 mmol/L 10/14/2023 1:22 PM SCRAP SHEAR OPERATOR LABORATORY Comment:Reference intervals for this test were updated on 05/28/2023 to more accurately reflect our healthy population. There may be differences in the flagging of prior results with similar values performed with this method. Interpretation of those prior results can be made in the context of the updated reference intervals. Potassium 4.0 3.4 - 5.3 mmol/L 10/14/2023 1:22 PM [facility] LABORATORY Carbon Dioxide (CO2) 29 22 - 29 mmol/L 10/14/2023 1:22 PM [facility]ATORY Anion Gap 12 7 - 15 mmol/L 10/14/2023 1:22 PM [facility]ATORY Urea Nitrogen 30.1(H) 8.0 - 23.0 mg/dL 10/14/2023 1:22 PM [facility] LABORATORY Creatinine 1.49(H) 0.67 - 1.17 mg/dL 10/14/2023 1:22 PM [facility]ATORY GFR Estimate 46(L) >60 mL/min/1. 73m2 10/14/2023 1:22 PM [facility]ATORY Calcium 9.2 8.8 - 10.2 mg/dL 10/14/2023 1:22 PM [facility]ATORY Chloride 93(L) 98 - 107 mmol/L 10/14/2023 1:22 PM [facility]ATORY Glucose 201(H) 70 - 99 mg/dL 10/14/2023 1:22 PM [facility]AT[facility] Alkaline Phosphatase 92 40 - 150 U/L 10/14/2023 1:22 PM [facility]ATORY Comment:Reference intervals for this test were updated on 07/16/2023 to more accurately reflect our healthy population. There may be differences in the flagging of prior results with similar values performed with this method. Interpretation of those prior results can be made in the context of the updated reference intervals. AST 65(H) 0 - 45 U/L 10/14/2023 1:22 PM [facility]ORATORY Comment:Reference intervals for this test were updated on 02/11/2023 to more accurately reflect our healthy population. There may be differences in the flagging of prior results with similar values performed with this method. Interpretation of those prior results can be made in the context of the updated reference intervals. ALT 118(H) 0 - 70 U/L 10/14/2023 1:22 PM [facility]ORATORY Comment:Reference intervals for this test were updated on 02/11/2023 to more accurately reflect our healthy population. There may be differences in the flagging of prior results with similar values performed with this method. Interpretation of those prior results can be made in the context of the updated reference intervals. Protein Total 6.9 6.4 - 8.3 g/dL 10/14/2023 1:22 PM SCRAP SHEAR OPERATOR LABORATORY Albumin 3.4(L) 3.5 - 5.2 g/dL 10/14/2023 1:22 PM SCRAP SHEAR OPERATOR LABORATORY Bilirubin Total 0.6 <=1.2 mg/dL 10/14/2023 1:22 PM SCRAP SHEAR OPERATOR LABORATORY Blood STRUCTURE OF LEFT UPPER LIMB / Unknown Venipuncture / Unknown 10/14/2023 12:53 PM SCRAP SHEAR OPERATOR 10/14/2023 12:57 PM SCRAP SHEAR OPERATOR Baldev Burton DO LAB - BLOO D ORDERABLES LABORATORY [facility] [address], [address] [place] [address], [facility] [phone] * EKG 12 lead (10/14/2023 12:41 PM SCRAP SHEAR OPERATOR) Systolic Blood Pressure mmHg RADIOLOGY RESULTS Diastolic Blood Pressure mmHg RADIOLOGY RESULTS Ventricular Rate 103 BPM RAD IOLOGY RESULTS Atrial Rate BPM RADIOLOG Y RESULTS MS Interval ms RADIOLOG Y RESULTS QRS Duration 86 ms RADIOLO GY RESULTS QT 290 ms RADIOLOGY RESULTS QTc 379 ms RADIOLOGY RESULTS P [place] degrees RADIOLOGY RESULTS R AXIS -40 degrees RADIOLOGY RESULTS T [place] 100 degrees RADIOLOGY RESULTS Interpretation ECG Atrial [...] leads Confirmed by GENERATED REPORT, COMPUTER ([id number]), acquisition editor ESTEVAN MCDANIELS ([id number]) on 10/14/2023 3:56:41 PM RADIOLOGY RESULTS 10/14/2023 12:4 1 PM SCRAP SHEAR OPERATOR 10/14/2023 3:56 PM SCRAP SHEAR OPERATOR Baldev Burton DO ECG ORDERA BLES [...] exceed 4 grams/day. $Given 10/15/2023 7:36 PM SCRAP SHEAR OPERATOR 650 mg $Given 10/14/2023 6:17 PM SCRAP SHEAR OPERATOR 650 mg albuterol (PROVENTIL) neb solution [...] Acquired Pneumonia $New Bag 10/15/2023 3:04 PM SCRAP SHEAR OPERATOR 250 mg cefTRIAXone (ROCEPHIN) 2 g [...] Acquired Pneumonia $New Bag 10/16/2023 2:13 PM SCRAP SHEAR OPERATOR 2 g $New Bag 10/15/2023 1:01 PM SCRAP SHEAR OPERATOR 2 g dextrose 50 % injection [...] Sat10/14/23 at 2200 $Given 10/15/2023 9:31 PM SCRAP SHEAR OPERATOR 100 mg $Given 10/14/2023 10:09 PM SCRAP SHEAR OPERATOR 100 mg glucagon injection 1 mg [...] of correction dose. $Given 10/15/2023 6:43 PM SCRAP SHEAR OPERATOR 2 Units insulin aspart (NovoLOG) injection [...] of correction dose. $Given 10/15/2023 9:31 PM SCRAP SHEAR OPERATOR 1 Units $Given 10/14/2023 10:46 PM SCRAP SHEAR OPERATOR 1 Units insulin glargine (LANTUS PEN) injection 30 Units 30 Units, Subcutaneous, AT BEDTIME, First dose on Sat10/14/23 at 2200 $Given 10/15/2023 9:31 PM SCRAP SHEAR OPERATOR 30 Units $Given 10/14/2023 10:46 PM SCRAP SHEAR OPERATOR 30 Units losartan (COZAAR) tablet 100 mg 100 mg, Oral, DAILY WITH SUPPER, First dose on Sat10/14/23 at 1800, HOLD for SBP <110 $Given 10/15/2023 6:06 PM SCRAP SHEAR OPERATOR 10 0 mg $Given 10/14/2023 6:17 PM SCRAP SHEAR OPERATOR 100 mg melatonin tablet 5 mg 5 mg, Oral, AT BEDTIME PRN, sleep, Starting on Sat10/15/23 at 1859 metoprolol succinate ER (TOPROL XL) 24 hr tablet 25 mg 25 mg, Oral, DAILY, First dose on Sat10/15/23 at 1200, DO NOT CRUSH. Tablet may be split in half along score line. $Given 10/15/2023 1:01 PM SCRAP SHEAR OPERATOR 25 mg mirabegron (MYRBETRIQ) 24 hr tablet 50 mg 50 mg, Oral, DAILY, First dose on Sat10/14/23 at 1800, Do not chew, crush or split tablets. $Given 10/15/2023 6:0 6 PM SCRAP SHEAR OPERATOR 50 mg $Given 10/14/2023 6:17 PM SCRAP SHEAR OPERATOR 50 mg naloxone (NARCAN) injection 0.2 [...] Sat10/14/23 at 1912 $Given 10/14/2023 11:53 PM SCRAP SHEAR OPERATOR 0.4 m g ondansetron (ZOFRAN ODT) [...] Indications: Afib-non valvular $Given 10/15/2023 6:06 PM SCRAP SHEAR OPERATOR 20 mg $Given 10/14/2023 7:54 PM SCRAP SHEAR OPERATOR 20 mg senna-docusate (SENOKOT-S/PERICOLACE) 8.6-50 MG [...] for loose stools. $Given 10/15/2023 7:40 AM SCRAP SHEAR OPERATOR 1 tablet $Given 10/14/2023 7:54 PM SCRAP SHEAR OPERATOR 1 tablet senna-docusate (SENOKOT-S/PERICOLACE) 8.6-50 MG [...] IV dormant line. Positive 10/16/2023 9:16 AM SCRAP SHEAR OPERATOR 3 mLs $Given 10/15/2023 6:43 PM SCRAP SHEAR OPERATOR 3 mLs $Given 10/15/2023 11:16 AM SCRAP SHEAR OPERATOR 3 mLs documented in this encounter Active and Recently Administered Medications Times are shown in SCRAP SHEAR OPERATOR. Scheduled Medication Order 10/14/2023 10/15/2023 10/16/2023 [...] 1953 ($Given - Provider: Lauryn Sanchez RN) 1805 ($Given - Provider: Heather [...] stools. documented in this encounter Care Teams Process Design Engineer Relationship Specialty Start Date End Date Merrill Mejia MD [facility] [address] [place] [address] PCP - General Family Medicine 10/10/23 10/24/23 Nicanor Patel MD [address] [place] [id number] Cardiovascular Disease 09/16/23 Nicanor Patel MD [address] [place] [id number] Cardiovascular Disease 09/16/23 Nicanor Patel MD [address] [place] [id number] Assigned Heart and Vascular Provider 09/26/23 documented as of this encounter
--- OUTSIDE RECORDS SUMMARY | 2024-01-13 09:51 | XMS_ITS ---
Author Name Unknown Organization [facility] Address [address] [place] [address] Care Team Providers Care Share Dairy Farmer Name Role Phone Unavailable Unavailable Unavailable Surgery Details Not on file Complications Check Surgery Details section. Procedure Estimated Blood Loss Check Surgery Details section. Procedure Findings Check Surgery Details section. Procedure Specimens Taken Check Surgery Details section.
--- OUTSIDE RECORDS SUMMARY | 2024-01-13 09:51 | XMS_ITS ---
Author Name Unknown Organization [facility] Address [address] [place] [address] Care Team Providers Care Sourcing Internship Name Role Phone Nicanor Klein MD Unavailable Nicanor Klein MD Unavailable Nicanor Klein MD Unavailable Merrill Mejia MD Primary Care Provider [phone] Transitional Care Management Status:Closed (Closed) Start date:10/17/2023 Enrollment date:10/17/2023 End date:10/31/2023 Close reason:Goals met Continued Care and Services Coordination
--- OUTSIDE RECORDS SUMMARY | 2024-01-13 09:51 | XMS_ITS | Encounter Summary ---
Author Name Unknown Organization [facility] Address [address] [place] [address] Care Team Providers Care Marketing Clerk Name Role Phone Edwige Negrete MD Primary Care Provider [phone] Nicanor Klein MD Unavailable Nicanor Klein MD Unavailable Nicanor Klein MD Unavailable Merrill Mejia MD Primary Care Provider [phone] Reason for Visit * Reason Onset Date Comments Previsit 10/09/2023 DCC 10/15/2023 Encounter Details Date Type Department Care Team (Late st Contact Info) Description 10/09/2023 Telephone [facility] Heart [address] [place] [address] Charo Brady, RN Previsit (DCC [...] Sex Assigned at Male 09/28/2023 2:19 PM DENTAL PRACTICE MANAGER Gender Identity Male 09/28/2023 2:19 PM DENTAL PRACTICE MANAGER Sexual Orientation Straight 09/28/2023 2: 19 PM DENTAL PRACTICE MANAGER documented as of this encounter Miscellaneous Notes * Telephone Encounter - Charo Brady RN - 10/09/2023 2:46 PM DENTAL PRACTICE MANAGER Attempted to contact patient to review prep for DCCV on 10/15/2023. Left message for patient to callback to Team 2 R.N.s @ [phone] DCCV/CAIN prep instructions Patient is scheduled for a CAIN at [facility] - [address] [place] [address] - Main Entrance of the Hospital, on [...] temperature the morning of procedure and call [facility] at [phone] iftemp is >100.0. Patient is aware of visitor policy. Patient expresses understanding of above instructions and denies further questions at this time. AL PRACTICE MANAGER documented in this encounter Plan of Treatment Upcoming Encounters Date Type Department Care Team (Late st Contact Info) Description 05/14/2024 12:30 PM CDT Office Visit [facility] [address] [place] [phone] Gail Post MD [address] [place] [address] Anushka Carrasquillo MD [address] [place] [address] documented as of this encounter Visit Diagnoses Not on filedocumented in this encounter Care Teams Marketing Clerk Relationship Specialty [place] [id number] [place] [address] PCP - General Family Practice 07/21/19 10/09/23 Merrill Mejia MD [facility] [address] [address] PCP - General Family Medicine 10/10/23 10/24/23 Nicanor Klein MD [address] [facility] [id number] Cardiovascular Disease 09/16/23 Nicanor Klein MD [address] [facility] [address] Cardiovascular Disease 09/16/23 Nicanor Klein MD [address] [facility] [id number] Assigned Heart and Vascular Provider 09/26/23 documented as of this encounter
--- OUTSIDE RECORDS SUMMARY | 2024-01-13 09:51 | XMS_ITS | Encounter Summary ---
Author Name Unknown Organization [facility] Address [facility] [place] [address] Care Team Providers Care Policy Cancellation Clerk Name Role Phone Nicanor Klein MD Unavailable Nicanor Klein MD Unavailable Nicanor Klein MD Unavailable Merrill Mejia MD Primary Care Provider Encounter Details Date Type Department Care Team (Late st Contact Info) Description 10/14/2023 Telephone [facility] [place] [id number] [facility] [address] [place] [address] Nicanor Klein MD [address] [facility] [address] [place], [place] [phone] Social History Tobacco Use Types Packs/Day Years Used Date Smoking Tobacco: Never Alcohol Use Standard Drinks/Week Comments Yes 0 (1 standard drink = 0.6 oz pur e alcohol) Adolescent Education Answer Date Record ed Getting School Help Needed Not on file 06/09 Sex and Gender Information Value Date Recorded Sex Assigned at Male 09/28/2023 2:19 PM METAL BONDING ASSEMBLER Gender Identity Male 09/28/2023 2:19 PM METAL BONDING ASSEMBLER Sexual Orientation Straight 09/28/2023 2: 19 PM METAL BONDING ASSEMBLER documented as of this encounter Miscellaneous Notes * Telephone Encounter - Lashell Osborn RN - 10/14/2023 11:42 AM CST Messages left for regarding Patient and concerns that he needs to go into ED. If unable to bring Patient to please call 911. Which would be safer. Unable to assist in admission, ED would need to assess and evaluate. L BONDING ASSEMBLER * Telephone Encounter - Porfirio Zavaleta - 10/14/2023 11:18 AM CST [facility] Call Center Phone Message May a [...] Not Applicable Thank you! Specialty [facility] L BONDING ASSEMBLER documented in this encounter Plan of Treatment Upcoming Encounters Date Type Department Care Team (Late st Contact Info) Description 05/14/2024 12:30 PM CDT Office Visit [facility] [address] [facility] [address] [place] [phone] Gail Post MD [address] [place] [address] Anushka Carrasquillo MD [address] [place] [address] documented as of this encounter Visit Diagnoses Not on filedocumented in this encounter Care Teams Policy Cancellation Clerk Relationship Specialty Start Date End Date Merrill Mejia MD [facility] [address], [place] [address] PCP - General Family Medicine 10/10/23 10/24/23 Nicanor Klein MD [address] [place] [place] [address] Cardiovascular Disease 09/16/23 Nicanor Klein MD [address] [place] [phone] Cardiovascular Disease 09/16/23 Nicanor Klein MD [address] [place] [id number] Assigned Heart and Vascular Provider 09/26/23 documented as of this encounter
--- OUTSIDE RECORDS SUMMARY | 2024-01-13 09:51 | XMS_ITS | Encounter Summary ---
Author Name Unknown Organization [facility] Address [address] [place] [address]. [place] [address] Care Team Providers Care Water Conservationist Name Role Phone Nicanor Klein MD Unavailable Nicanor Klein MD Unavailable Nicanor Klein MD Unavailable Merrill Mejia MD Primary Care Provider [phone] Encounter Details Date Type Department Care Team (Late st Contact Info) Description 10/14/2023 Telephone [facility] Heart [address] [place] [address] Lashell Osborn RN Social History Tobacco Use Types Packs/Day Years Used Date Smoking Tobacco: Never Alcohol Use Standard Drinks/Week Comments Yes 0 (1 standard drink = 0.6 oz pur e alcohol) Adolescent Education Answer Date Record ed Getting School Help Needed Not on file 06/09 Sex and Gender Information Value Date Recorded Sex Assigned at Male 09/28/2023 2:19 PM NATURAL RESOURCES FACULTY MEMBER Gender Identity Male 09/28/2023 2:19 PM NATURAL RESOURCES FACULTY MEMBER Sexual Orientation Straight 09/28/2023 2: 19 PM NATURAL RESOURCES FACULTY MEMBER documented as of this encounter Miscellaneous Notes * Telephone Encounter - Lashell Osborn RN - 10/14/2023 11:01 AM CST Message left for regarding RIANNA OV today at 3 PM. will be coming to appointment today as she is concerned about her . RAL RESOURCES FACULTY MEMBER documented in this encounter Plan of Treatment Upcoming Encounters Date Type Department Care Team (Late st Contact Info) Description 05/14/2024 12:30 PM CDT Office Visit [facility] [address] [facility] [address] [place] [phone] Gail Post MD [address] [place] [address] Anushka Carrasquillo MD [address] [place] [address] documented as of this encounter Visit Diagnoses Not on filedocumented in this encounter Care Teams Water Conservationist Relationship Specialty Start Date End Date Merrill Mejia MD [facility] [address] [address] PCP - General Family Medicine 10/10/23 10/24/23 Nicanor Klein MD [address] [facility] [address] [place] [phone] Cardiovascular Disease 09/16/23 Nicanor Klein MD [address] [place] [address] Cardiovascular Disease 09/16/23 Nicanor Klein MD [address] [place] [address] Assigned Heart and Vascular Provider 09/26/23 documented as of this encounter
--- OUTSIDE RECORDS SUMMARY | 2024-01-13 09:52 | XMS_ITS | Encounter Summary ---
Author Name Unknown Organization [facility] Address [address] [place] [address] Care Team Providers Care Marketing Teacher Name Role Phone Elsewhere, Pcp Primary Care Provider Unavailabl e Reason for Referral * Outpatient (Routine) - Closed Specialty Diagnoses / Procedures Referred By Contac t Referred To Contact Diagnoses Atrial Fibrillation Other Persistent (HCC) Procedures DX Chest AP or PA and Lateral 2 Views Jean Claude Kimball M.D. [address] [place] [phone] [facility] Referral ID Status Reason Start Date Expiration Date Visits Re quested Visits Authorized [id number] Closed 10/23/2023 10/22/2024 1 1 APPLIANCE SERVICER Reason for Visit * Outpatient (Routine) - Closed Specialty Diagnoses / Procedures Referred By Contac t Referred To Contact Diagnoses Atrial Fibrillation Other Persistent (HCC) Procedures DX Chest AP or PA and Lateral 2 Views Jean Claude Kimball M.D. 200 [place] [address] [facility] Referral ID Status Reason Start Date Expiration Date Visits Re quested Visits Authorized [id number] Closed 10/23/2023 10/22/2024 1 1 Encounter Details Date Type Department Care Team (Latest Contact Info) Description 10/23/2023 11:20 AM GAS APPLIANCE SERVICER - 10/23/2023 11:37 AM GAS APPLIANCE SERVICER Hospital Encounter Department of Radiology, [facility], in [place], [place] [address] [place] [address] Jean Claude Kimball M.D. [address] [place] [address] Atrial Fibrillation Other Persistent (HCC) Discharge Disposition: [...] often do you attend chur ch or confucianism services? More than 4 times per year 01/11/2020 Do you belong to any clubs o r organizations such as temple groups, unions, fraternal or athletic groups, or [...] and heating? Not hard at all 01/11/2020 [facility] [place] of Occupat ional Health - Occupational Stress [...] by mouth daily. 90 tablet 3 05/07/2023 ppfxtvrj-qid-rpso-FA- vit K-lut 8 mg iron-400 mcg-50 mcg [...] AM CDT Clinical Communication Virtual Review in [place], [place] 200 [place] [address] 02/05/2024 1:00 PM CDT Comprehensive Visit Department of Neurology in [address] [address] Arturo Barfield M.D. [address] [place] [phone] documented as of this encounter Procedures Procedure Name Priority Date/Time Associated Diagnosis Comments DX CHEST AP OR PA AND LATERAL 2 VIEWS RAD - Routine (most inpatients and all outpatients) 10/23/2023 11:30 AM GAS APPLIANCE SERVICER Atrial Fibrillation Other Persistent (HCC) documented in this encounter Results * DX Chest AP or PA and Lateral 2 Views (10/23/2023 11:30 AM GAS APPLIANCE SERVICER) Anatomical Region Laterality Modality Chest, Thoracic RST LOS, Tho racic ARZ LOS, Thoracic FLA LOS N/A Digital Radiography Impressions 10/23/2023 11:35 AM GAS APPLIANCE SERVICER Moderate left pleural effusion has decreased minimally in size since 10/18/2023. Very tiny right pleural effusion has also improved. Subsegmental atelectasis left base. Aortic calcification. Calcified granulomas in both lungs. Calcified right hilar node. Slight cardiac enlargement. Narrative 10/23/2023 11:35 AM GAS APPLIANCE SERVICER EXAM: ??DX CHEST AP OR PA AND [...] Total Score: 1 07/16/20 13 2:30 PM GAS APPLIANCE SERVICER documented as of this encounter Care Teams Marketing Teacher Relationship Specialty Start Date End Date Elsewhere, Pcp PCP - General Internal Medicine 10/07/23 documented as of this encounter
--- OUTSIDE RECORDS SUMMARY | 2024-01-13 09:52 | XMS_ITS | Encounter Summary ---
Author Name Unknown Organization [facility] Address [address] [place] [address] Care Team Providers Care Data Integrity Specialist Name Role Phone Elsewhere, Pcp Primary Care Provider Unavailabl e Reason for Referral * Outpatient (Routine) - Authorized Specialty Diagnoses / Procedures Referred By Contac t Referred To Contact Diagnoses Atrial Fibrillation Other Persistent (HCC) Procedures ECG Heart Rhythm Monitor (Holter) Jean Claude Kimball M.D. 200 [place] [address] [facility] Referral ID Status Reason Start Date Expiration Date V isits Requested Visits Authorized [id number] Authorized 11/28/2023 11/27/2024 1 1 * Outpatient (Routine) - Closed Specialty Diagnoses / Procedures Referred By Contac t Referred To Contact Diagnoses Atrial Fibrillation Other Persistent (HCC) Procedures ECG 12 Lead Jean Claude Kimball M.D. 200 [place] [address] [facility] Referral ID Status Reason Start Date Expiration Date Visits Re quested Visits Authorized [id number] Closed 11/28/2023 11/27/2024 1 1 * Outpatient (Routine) - Closed Specialty Diagnoses / Procedures Referred By Contac t Referred To Contact Cardiovascular Disease Jean Claude Kimball M.D. [address] [place] [address] [facility] Referral ID Status Reason Start Date Expiration Date Visits Re quested Visits Authorized [id number] Closed 11/28/2023 05/29/2025 1 1 Reason for Visit * Reason Onset Date Comments Appointment 11/26/2023 Encounter Details Date Type Department Care Team (Latest Contact Info) Description 11/26/2023 Clinical Communication Department of Cardiovascular Medicine in [place], [place] [address] [place] [address] Jean Claude Kimball M.D. 200 [place] [address] Appointment Social History Tobacco Use Types Packs/Day [...] often do you attend chur ch or gnosticist services? More than 4 times per year 01/11/2020 Do you belong to any clubs o r organizations such as worship groups, unions, fraternal or athletic groups, or [...] and heating? Not hard at all 01/11/2020 [facility] of Occupat ional [facility] - Occupational Stress Questionnaire Answer Date [...] AM CDT Clinical Communication Virtual Review in [place], [place] [address] [place] [address] 02/05/2024 1:00 PM CDT Comprehensive Visit Department of Neurology in [place], [place] [address] [place] [address] Arturo Barfield M.D. [address] [place] [address] Scheduled Orders Name Type Priority Associated Diagnoses Orde r Schedule ECG 12 Lead ECG Routine Atrial Fibrillation Other Persistent (HCC) Expected: 12/12/2023, Expires: 02/27/2025 Scheduled Referrals Name Type Priority Associated Diagnoses Order Schedule Cardiovascular Disease office visit (clinic) Outpatient Referral Routine Expect ed: 12/12/2023, Expires: 02/27/2025 documented as of this encounter Results * HOLTER MONITOR - IN CLINIC BENDING ROLL OPERATOR (12/08/2023 11:00 AM CDT) Min Heart Rate [...] Duration 0 duration INFOBION IC MOME AF [place] 0 percent INFOBIONIC MOME Symptom Count 0 [...] 1%. 4. No symptomatic events were noted. Supervisor Tellers: DAYANA Rogers /DAYANA Cruz Procedure Note Josias [...] than1%. 4. No symptomatic events were noted. Supervisor Tellers: DAYANA Rogers /DAYANA Cruz Jean Claude Kimball M.D. CV CARDIAC SERVICES PROCEDURES INFOBIONIC MOME NA documented in this encounter Visit Diagnoses Diagnosis Atrial Fibrillation Other Persistent (HCC)- Primary Atrial Fibrillation Other Persistent (HCC) documented in this encounter Additional Health Concerns Assessment Noted Time PHQ-9 Depression Total Score: 1 07/16/20 13 2:30 PM MEDICAL STENOGRAPHER documented as of this encounter Care Teams Data Integrity Specialist Relationship Specialty Start Date End Date Elsewhere, Pcp PCP - General Internal Medicine 10/07/23 documented as of this encounter
--- OUTSIDE RECORDS SUMMARY | 2024-01-13 09:52 | XMS_ITS | Encounter Summary ---
Author Name Unknown Organization [facility] Address [address] [place] [address] Care Team Providers Care Credit Adjuster Name Role Phone Elsewhere, Pcp Primary Care Provider Unavailabl e Encounter Details Date Type Department Care Team (Latest Contact Info) Description 10/23/2023 11:38 AM RAIL TRANSIT OPERATOR - 10/23/2023 11:[address] [facility] Hospital Encounter Department of Laboratory Medicine and Pathology, [facility] in [place], [place] [address] [place] [address] Jean Claude Kimball M.D. [address] [place] [address] Atrial Fibrillation Other Persistent (HCC); Fatty Liver [...] often do you attend chur ch or islam services? More than 4 times per year 01/11/2020 Do you belong to any clubs o r organizations such as amish groups, unions, fraternal or athletic groups, or [...] all 01/11/2020 [facility] of Occupat ional Health - Occupational [...] by mouth daily. 90 tablet 3 05/07/2023 xcqkhdeg-giw-vjjq-FA- vit K-lut 8 mg iron-400 mcg-50 mcg [...] AM CDT Clinical Communication Virtual Review in [place], [place] [address] [place] [address] 02/05/2024 1:00 PM CDT Comprehensive Visit Department of Neurology in [place], [place] [address] [place] [phone] Arturo Barfield M.D. [address] [place] [phone] documented as of this encounter Procedures Procedure Name Priority Date/Time Associated Diagnosis Comments HEPATIC FUNCTION PANEL, S Routine 10/23/2023 11:54 AM RAIL TRANSIT OPERATOR Atrial Fibrillation Other Persistent (HCC) D-DIMER, P Routine 10/23/2023 11:54 AM RAIL TRANSIT OPERATOR Fatty Liver documented in this encounter Results * (ABNORMAL) D-Dimer (10/23/2023 11:54 AM RAIL TRANSIT OPERATOR) D-Dimer, P 853(H) <=500 ng/mL FEU 10/23/2023 12:33 PM RAIL TRANSIT OPERATOR DTL Comment: D-dimer concentrations increase with [...] (PE). Blood (Blood, Venous) 10/23/2023 11:54 AM RAIL TRANSIT OPERATOR 10/23/2023 12:18 PM RAIL TRANSIT OPERATOR Jean Claude Kimball M.D. LAB BLOOD ADD-ON [facility] 200 [place] [address], [facility] [[email or web address] 200 [place] [address] * (ABNORMAL) Hepatic Function Panel (10/23/2023 11:54 AM RAIL TRANSIT OPERATOR) Bilirubin, Total, S 0.5 0.0 - 1.2 mg/dL 10/23/2023 1:36 PM RAIL TRANSIT OPERATOR DTL Bilirubin, Direct, S <0.2 0.0 - 0.3 mg/dL 10/23/2023 1:36 PM RAIL TRANSIT OPERATOR DTL Aspartate Aminotransferase (AST), S 32 8 - 48 U/L 10/23/2023 1:36 PM RAIL TRANSIT OPERATOR DTL Alanine Aminotransferase (ALT), S 104(H) 7 - 55 U/L 10/23/2023 1:36 PM RAIL TRANSIT OPERATOR DTL Alkaline Phosphatase, S 77 40 - 129 U/L 10/23/2023 1:36 PM RAIL TRANSIT OPERATOR DTL Albumin, S 3.7 3.5 - 5.0 g/dL 10/23/2023 1:36 PM RAIL TRANSIT OPERATOR DTL Protein, Total, S 6.3 6.3 - 7.9 g/dL 10/23/2023 1:36 PM RAIL TRANSIT OPERATOR DTL Blood (Blood, Venous) 10/23/2023 11:54 AM RAIL TRANSIT OPERATOR 10/23/2023 12:31 PM RAIL TRANSIT OPERATOR Jean Claude Kimball M.D. LAB BLOOD ADD-ON [facility] 200 [place] [address], [facility] 200 [place] [address] documented in this encounter Visit Diagnoses Diagnosis Atrial Fibrillation Other Persistent (HCC) Fatty Liver documented in this encounter Additional Health Concerns Assessment Noted Time PHQ-9 Depression Total Score: 1 07/16/20 13 2:30 PM RAIL TRANSIT OPERATOR documented as of this encounter Care Teams Credit Adjuster Relationship Specialty Start Date End Date Elsewhere, Pcp PCP - General Internal Medicine 10/07/23 documented as of this encounter
--- OUTSIDE RECORDS SUMMARY | 2024-01-13 09:52 | XMS_ITS | Encounter Summary ---
Author Name Unknown Organization [facility] Address [address] [place] [address] Care Team Providers Care Auto Service Instructor Name Role Phone Elsewhere, Pcp Primary Care Provider Unavailabl e Encounter Details Date Type Department Care Team (Latest Contact Info) Description 10/23/2023 10:55 AM HOISTING MACHINE OPERATOR Ancillary Procedure Department of Radiology in [place], [place] [address] [place] [address] Jean Claude Kimball M.D. [address] [place] [address] Atrial Fibrillation Other Persistent (HCC) Social History [...] often do you attend chur ch or moravian services? More than 4 times per year [...] and heating? Not hard at all 01/11/2020 [facility] of Occupat ional Health - Occupational [...] AM CDT Clinical Communication Virtual Review in [place], [place] [address] [place] [address] 02/05/2024 1:00 PM CDT Comprehensive Visit Department of Neurology in [place], [place] [address] [place] [phone] Arturo Barfield M.D. [address] [place] [phone] documented as of this encounter Procedures Procedure Name Priority Date/Time Associated Diagnosis Comments INTERPRETATION OF OUTSIDE CT ABDOMEN AND OR PELVIS RAD - Routine (most inpatients and all outpatients) 10/23/2023 10:53 AM HOISTING MACHINE OPERATOR Atrial Fibrillation Other Persistent (HCC) documented in this encounter Results * Interpretation of Outside CT Abdomen and or Pelvis (10/23/2023 10:53 AM HOISTING MACHINE OPERATOR) Anatomical Region Laterality Modality Abdomen, Pelvis, Abdominal R ST LOS, Abdominal ARZ LOS, Abdominal FLA LOS, Other N/A Computed Tomography Impressions 10/25/2023 8:06 AM HOISTING MACHINE OPERATOR 1. Negative. No acute or suspicious findings. No significant change since 09/30/2013. 2. This OS examination was performed in conjunction with a CT of the chest, which will be re-reported separately if requested. Narrative 10/25/2023 8:06 AM HOISTING MACHINE OPERATOR EXAM: ??INTERPRETATION OF OUTSIDE CT ABDOMEN AND OR PELVIS . Outside CT of the abdomen and pelvis with IV contrast dated 09/12/2023. COMPARISON: ??Outside CT 06/16/[address] [facility] [address] 09/30/2013. FINDINGS: ??Liver, pancreas, and [...] dated 09/12/2023. COMPARISON: Outside CT 06/16/[address] [facility] [address] 09/30/2013. FINDINGS: Liver, pancreas, and [...] Total Score: 1 07/16/20 13 2:30 PM HOISTING MACHINE OPERATOR documented as of this encounter Care Teams Auto Service Instructor Relationship Specialty Start Date End Date Elsewhere, Pcp PCP - General Internal Medicine 10/07/23 documented as of this encounter
--- OUTSIDE RECORDS SUMMARY | 2024-01-13 09:52 | XMS_ITS | Encounter Summary ---
Author Name Unknown Organization [facility] Address [address] [place] [address] Care Team Providers Care Incident Engineer Name Role Phone Elsewhere, Pcp Primary Care Provider Unavailabl e Reason for Referral * Outpatient (Routine) - Closed Specialty Diagnoses / Procedures Referred By Contac t Referred To Contact Diagnoses Atrial Fibrillation Other Persistent (HCC) Procedures Echo Transthoracic (TTE) Jean Claude Kimball M.D. 200 [place] [address] [facility] Referral ID Status Reason Start Date Expiration Date Visits Re quested Visits Authorized [id number] Closed 10/23/2023 10/22/2024 1 1 RAISER Reason for Visit * Outpatient (Routine) - Closed Specialty Diagnoses / Procedures Referred By Contalex ng Referred To Contact Diagnoses Atrial Fibrillation Other Persistent (HCC) Procedures Echo Transthoracic (TTE) Jean Claude Kimball M.D. 200 [place] [address] [facility] Referral ID Status Reason Start Date Expiration Date Visits Re quested Visits Authorized [id number] Closed 10/23/2023 10/22/2024 1 1 Encounter Details Date Type Department Care Team (Latest Contact Info) Description 10/24/2023 11:57 AM BIRD RAISER - 10/24/2023 11:59 PM BIRD RAISER Hospital Encounter Department of Cardiovascular Diseases in [place], [place] [address] [place] [phone] Jean Claude Kimball M.D. [address] [place] [address] Atrial Fibrillation Other Persistent (HCC) Discharge Disposition: [...] How often do you attend chur or roman catholic services? More than 4 times per year 01/11/2020 Do you belong to any clubs o r organizations such as lutheran groups, unions, fraternal or athletic groups, or [...] hard at all 01/11/2020 [facility] [place] of Occupat ional Health - Occupational Stress [...] by mouth daily. 90 tablet 3 05/07/2023 rbddlvsu-sbg-crzo-FA- vit K-lut 8 mg iron-400 mcg-50 mcg [...] AM CDT Clinical Communication Virtual Review in [address] [address] 02/05/2024 1:00 PM CDT Comprehensive Visit Department of Neurology in [address] [address] Arturo Barfield M.D. [address] [place] [phone] documented as of this encounter Procedures Procedure Name Priority Date/Time Associated Diagnosis Comments (TTE) 2D ECHO DOPPLER COLOR Routine 10/24/2023 1:24 PM BIRD RAISER Atrial Fibrillation Other Persistent (HCC) documented in this encounter Results * (TTE) 2D ECHO DOPPLER COLOR (10/24/2023 1:24 PM BIRD RAISER) Ejection Fraction 56 MC CV EIMS Mid-Ascending [...] Laterality Modality Echocardiography 10/24/2023 12:1 8 PM BIRD RAISER Impressions 10/24/2023 1:36 PM BIRD RAISER LEFT VENTRICLE:Normal left ventricular chamber size. Normal left ventricular wall thickness. Calculated 2-D linear left ventricular ejection fraction 56% with rdzw-sg-izxp variability. No regional wall motion abnormalities. Indeterminate [...] the Order-Level Documents. Narrative 10/24/2023 1:36 PM BIRD RAISER For the complete report, see the Order-Level Documents. Hemodynamics Heart Rate: 127 BPM Blood Pressure: 136 / 72 mmHg ECG: Atrial fibrillation, BPM 100-140 Final Impressions 1. Echocardiogram performed in the setting of atrial fibrillation with rapid ventricular rate; ??hemodynamics may be inaccurate. 2. Normal left ventricular chamber size, calculated 2-D linear ejection fraction 56% with acfe-wl-lkfp variability. 3. Moderately enlarged left atrial size. [...] size, calculated 2-D linear ejectionfraction 56% with yble-xh-gsgm variability. 3. Moderately enlarged left atrial size. [...] 2-D linear left ventricularejection fraction 56% with gavn-fv-vlbq variability. No regional wallmotion abnormalities. Indeterminate left [...] Total Score: 1 07/16/20 13 2:30 PM BIRD RAISER documented as of this encounter Care Teams Incident Engineer Relationship Specialty Start Date End Date Elsewhere, Pcp PCP - General Internal Medicine 10/07/23 documented as of this encounter
--- OUTSIDE RECORDS SUMMARY | 2024-01-13 09:52 | XMS_ITS | Encounter Summary ---
Author Name Unknown Organization [facility] Address [address] [place] [address] Care Team Providers Care Transit Vehicle Inspector Name Role Phone Elsewhere, Pcp Primary Care Provider Unavailabl e Encounter Details Date Type Department Care Team (Late st Contact Info) Description 10/23/2023 12:30 PM COTTON BUYER Diagnostic Division of Pulmonary Medicine in [place], [place] [address] [place] [phone] Jean Claude Kimball M.D. [address] [place] [address] Atrial Fibrillation Other Persistent (HCC) Social History [...] often do you attend chur ch or synagogue services? More than 4 times [...] and heating? Not hard at all 01/11/2020 [facility] of Occupat ional Health - Occupational Stress [...] AM CDT Clinical Communication Virtual Review in [place], [place] [address] [place] [address] 02/05/2024 1:00 PM CDT Comprehensive Visit Department of Neurology in [place], [place] [address] [place] [phone] Arturo Barfield M.D. [address] [place] [phone] documented as of this encounter Procedures Procedure Name Priority Date/Time Associated Diagnosis Comments PUL HOME OVERNIGHT OXIMETRY Routine 10/23/2023 Atrial Fibrillation Other Persistent (HCC) documented in this encounter Results * PUL Home Overnight Oximetry (10/23/2023) 10/23/2023 Impressions SALOME NVISION EAP - 10/24/2023 1:58 PM COTTON BUYER This is an overnight oximetry assumed to have been performed on room air as a completed questionnaire was not returned. ??Mean saturation of 94% with periods of oscillatory desaturation to as low as 82% noted during the study. ??Heart rate tracing suggests an arrhythmia. Impression: ??Abnormal. ??Desaturations concerning for a positional or sleep- related breathing disorder. ??Possible arrhythmia. Physician: Martin Humphries M.D. [id number] Narrative Procedure Note Martin Humphries M.D., Ph.D. [...] disorder. Possible arrhythmia. Physician: Martin Humphries M.D. [id number] Jean Claude Kimball M.D. PFT ORDERABLES [facility] documented in this encounter Visit Diagnoses Diagnosis Atrial Fibrillation Other Persistent (HCC) documented in this encounter Additional Health Concerns Assessment Noted Time PHQ-9 Depression Total Score: 1 07/16/20 13 2:30 PM COTTON BUYER documented as of this encounter Care Teams Transit Vehicle Inspector Relationship Specialty Start Date End Date Elsewhere, Pcp PCP - General Internal Medicine 10/07/23 documented as of this encounter
--- OUTSIDE RECORDS SUMMARY | 2024-01-13 09:52 | XMS_ITS | Encounter Summary ---
Author Name Unknown Organization [facility] Address [address] [place] [address] Care Team Providers Care Specification Consultant Name Role Phone Elsewhere, Pcp Primary Care Provider Unavailabl e Encounter Details Date Type Department Care Team (Late st Contact Info) Description 11/21/2023 [facility] [address] [place] [address] Merrill Mejia M.D. [address] [place] [phone] Tremor (Primary Dx); Amnesia; Diabetes Mellitus Type [...] and heating? Not hard at all 01/11/2020 [facility] of Occupat ional Health - [...] AM CDT Clinical Communication Virtual Review in [place], [place] 200 [place] [address] 02/05/2024 1:00 PM CDT Comprehensive Visit Department of Neurology in [place], [place] [address] [place] [phone] Arturo Barfield M.D. [address] [place] [phone] documented as of this encounter Visit Diagnoses Diagnosis Tremor- Primary Amnesia Diabetes Mellitus Type 2 With Diabetic Neuropathy (HCC) documented in this encounter Additional Health Concerns Assessment Noted Time PHQ-9 Depression Total Score: 1 07/16/20 13 2:30 PM WELCOME WAGON HOST/HOSTESS documented as of this encounter Care Teams Specification Consultant Relationship Specialty Start Date End Date Elsewhere, Pcp PCP - General Internal Medicine 10/07/23 documented as of this encounter
--- OUTSIDE RECORDS SUMMARY | 2024-01-13 09:52 | XMS_ITS | Encounter Summary ---
Author Name Unknown Organization [facility] Address [address] [place] [address] Care Team Providers Care Electronic Specialist Name Role Phone Elsewhere, Pcp Primary Care Provider Unavailabl e Reason for Referral * Outpatient (Routine) - Authorized Specialty Diagnoses / Procedures Referred By Contac t Referred To Contact Urology Rachel Guillory M.D. [address] [place] [phone] [facility] Referral ID Status Reason Start Date Expiration Date V isits Requested Visits Authorized [id number] Authorized 12/10/2023 06/10/2025 1 1 * Outpatient (Routine) - Authorized Specialty Diagnoses / Procedures Referred By Contac t Referred To Contact Diagnoses Urgency Urinary Procedures URO Uroflow Rachel Guillory M.D. [address] [place] [phone] [facility] Referral ID Status Reason Start Date Expiration Date V isits Requested Visits Authorized [id number] Authorized 12/10/2023 12/09/2024 1 1 Reason for Visit * Outpatient (Routine) - Closed Specialty Diagnoses / Procedures Referred By Contac t Referred To Contact Urology Chanel Concepcion M.D., M.B.A. [address] [place] [phone] [facility] Referral ID Status Reason Start Date Expiration Date Visits Re quested Visits Authorized [id number] Closed 06/10/2023 06/09/2026 1 1 Encounter Details Date Type Department Care Team (Late st Contact Info) Description 12/10/2023 11:30 AM CDT Office Visit Department of Urology in [place], [place] [address] [place] [address] Rachel Guillory M.D. [address] [place] [address] Urgency Urinary (Primary Dx) Social History Tobacco [...] any clubs o r organizations such as scientology groups, unions, fraternal or athletic groups, or [...] and heating? Not hard at all 01/11/2020 [facility] [place] of Occupat ional Health - Occupational Stress [...] CHIEF COMPLAINT/REASON FOR VISIT Urinary urgency follow-up LOFT WORKER APPRENTICE calendar HISTORY OF PRESENT ILLNESS Mr. Alaniz [...] AM CDT Clinical Communication Virtual Review in [place] [address] [place] [address] 02/05/2024 1:00 PM CDT Comprehensive Visit Department of Neurology in [place], [place] [address] [place] [address] Arturo Barfield M.D. [address] [place] [address] Scheduled Orders Name Type Priority Associated Diagnoses [...] Total Score: 1 07/16/20 13 2:30 PM CLIENT SERVICES ADMINISTRATOR documented as of this encounter Care Teams Electronic Specialist Relationship Specialty Start Date End Date Elsewhere, Pcp PCP - General Internal Medicine 10/07/23 documented as of this encounter
--- OUTSIDE RECORDS SUMMARY | 2024-01-13 09:52 | XMS_ITS | Encounter Summary ---
Author Name Unknown Organization [facility] Address [address] [place] [address] Care Team Providers Care Central Lab Technician Name Role Phone Elsewhere, Pcp Primary Care Provider Unavailabl e Encounter Details Date Type Department Care Team (Latest Contact Info) Description 12/10/2023 3:28 PM CDT - 12/10/2023 11:59 PM CDT Hospital Encounter Department of Laboratory Medicine and Pathology, [facility] in [place], [place] [address] [place] [address] Jean Claude Kimball M.D. [address] [place] [phone] Fibrillation Atrial (AF) NOS Discharge Disposition: Home [...] often do you attend chur ch or sabianist services? More than 4 times per year 01/11/2020 Do you belong to any clubs o r organizations such as adventist groups, unions, fraternal or athletic groups, or [...] and heating? Not hard at all 01/11/2020 [facility] [place] of Occupat ional Health - Occupational Stress [...] by mouth daily. 90 tablet 3 05/07/2023 epwaovbz-nwe-fpyo-FA- vit K-lut 8 mg iron-400 mcg-50 mcg [...] AM CDT Clinical Communication Virtual Review in [place], [place] 200 [place] [address] 02/05/2024 1:00 PM CDT Comprehensive Visit Department of Neurology in [place], [place] [address] [place] [phone] Arturo Barfield M.D. [address] [place] [phone] documented as of this encounter Procedures Procedure Name Priority Date/Time Associated Diagnosis Comments HEPATIC FUNCTION PANEL, S Routine 12/10/2023 3:41 PM CDT Fibrillation Atrial (AF) NOS THYROID FUNCTION CASCADE, S Routine 12/10/2023 3:41 PM CDT Fibrillation Atrial (AF) NOS BASIC METABOLIC PANEL, S/P Routine 12/10/2023 3:41 PM CDT Fibrillation Atrial (AF) NOS documented in this encounter Results * Thyroid Function [place] (12/10/2023 3:41 PM CDT) TSH, Sensitive 1.6 0.3 - 4.2 mIU/L 12/10/2023 7:29 PM CDT DTL Blood (Blood, Venous) 12/10/2023 3:41 PM CDT 12/10/2023 4:09 PM CDT Jean Claude Kimball M.D. LAB BLOOD ADD-ON [facility] 200 [place] [address], [facility] 200 [place] [address] * Hepatic Function Panel (12/10/2023 3:41 PM [...] Jean Claude Kimball M.D. LAB BLOOD ADD-ON [address] [address], [address] [address] * (ABNORMAL) Basic Metabolic Panel (12/10/2023 3:41 [...] Jean Claude Kimball M.D. 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
--- OUTSIDE RECORDS SUMMARY | 2024-01-13 09:52 | XMS_ITS | Encounter Summary ---
Author Name Unknown Organization [facility] Address [address] [place] [address] Care Team Providers Care Fighter Pilot Name Role Phone Elsewhere, Pcp Primary Care Provider Unavailabl e Reason for Referral * Outpatient (Routine) - Authorized Specialty Diagnoses / Procedures Referred By Contac t Referred To Contact Diagnoses Atrial Fibrillation Other Persistent (HCC) Procedures ECG Heart Rhythm Monitor (Holter) Jean Claude Kimball M.D. 200 [place] [address] [facility] Referral ID Status Reason Start Date Expiration Date V isits Requested Visits Authorized [id number] Authorized 11/28/2023 11/27/2024 1 1 Reason for Visit * Outpatient (Routine) - Authorized Specialty Diagnoses / Procedures Referred By Contac t Referred To Contact Diagnoses Atrial Fibrillation Other Persistent (HCC) Procedures ECG Heart Rhythm Monitor (Holter) Jean Claude Kimball M.D. 200 [place] [address] [facility] Referral ID Status Reason Start Date Expiration Date V isits Requested Visits Authorized [id number] Authorized 11/28/2023 11/27/2024 1 1 Encounter Details Date Type Department Care Team (Latest Contact Info) Description 12/06/2023 10:37 AM CDT - 12/06/2023 11:59 PM CDT Hospital Encounter Department of Cardiovascular Diseases in [place], [place] [address] [place] [address] Jean Claude Kimball M.D. [address] [place] [address] Atrial Fibrillation Other Persistent (HCC) Discharge Disposition: [...] How often do you attend chur or mu-ism services? More than 4 times per year 01/11/2020 Do you belong to any clubs o r organizations such as druze groups, unions, fraternal or athletic groups, or [...] and heating? Not hard at all 01/11/2020 [facility] [place] of Occupat ional Health - Occupational Stress [...] by mouth daily. 90 tablet 3 05/07/2023 mrxeukok-ggs-yzqf-FA- vit K-lut 8 mg iron-400 mcg-50 mcg [...] AM CDT Clinical Communication Virtual Review in [address] [address] 02/05/2024 1:00 PM CDT Comprehensive Visit Department of Neurology in [address] [phone] Arturo Barfield M.D. [address] [place] [phone] documented as of this encounter Procedures Procedure Name Priority Date/Time Associated Diagnosis Comments HOLTER MONITOR - IN CLINIC ADULT HIGH SCHOOL INSTRUCTOR Routine 12/08/2023 11:00 AM CDT Atrial Fibrillation Other Persistent (HCC) documented in this encounter Results * HOLTER MONITOR - IN CLINIC ADULT HIGH SCHOOL INSTRUCTOR (12/08/2023 11:00 AM CDT) Min Heart Rate [...] Duration 0 duration INFOBION IC MOME AF [place] 0 percent INFOBIONIC MOME Symptom Count 0 [...] 1%. 4. No symptomatic events were noted. Manager Non Profit: DAYANA Rogers /DAYANA Cruz Procedure Note Josias [...] than1%. 4. No symptomatic events were noted. Manager Non Profit: DAYANA Rogers /DAYANA Cruz Jean Claude Kimball M.D. CV CARDIAC SERVICES PROCEDURES INFOBIONIC ERLIN NA documented in this encounter Visit Diagnoses Diagnosis Atrial Fibrillation Other Persistent (HCC) documented in this encounter Additional Health Concerns Assessment Noted Time PHQ-9 Depression Total Score: 1 07/16/20 13 2:30 PM RECEIVING SUPERVISOR documented as of this encounter Care Teams Fighter Pilot Relationship Specialty Start Date End Date Elsewhere, Pcp PCP - General Internal Medicine 10/07/23 documented as of this encounter
--- OUTSIDE RECORDS SUMMARY | 2024-01-13 09:52 | XMS_ITS | Encounter Summary ---
Author Name Unknown Organization [facility] Address [address] [place] [address] Care Team Providers Care Terra Cotta Mold Maker Name Role Phone Elsewhere, Pcp Primary Care Provider Unavailabl e Reason for Visit * Reason Comments Nocturia Uroflow * Outpatient (Routine) - Closed Specialty Diagnoses / Procedures Referred By Contac t Referred To Contact Diagnoses Symptom Urinary Nocturia Procedures URO Uroflow Chanel Concepcion M.D., M.B.A. [address] [place] [phone] [facility] Referral ID Status Reason Start Date Expiration Date Visits Re quested Visits Authorized [id number] Closed 06/10/2023 06/09/2024 1 1 Encounter Details Date Type Department Care Team (Late st Contact Info) Description 12/10/2023 10:45 AM CDT Procedure visit Department of Urology in [place], [place] [address] [place] [phone] Chanel Concepcion M.D., M.B.A. [address] [place] [phone] Teri Coto R.N. [address] [place] [phone] Symptom Urinary; Nocturia Social History Tobacco Use [...] any clubs o r organizations such as zoroastrian groups, unions, fraternal or athletic groups, or [...] and heating? Not hard at all 01/11/2020 [facility] of Occupat ional Health - Occupational Stress [...] AM CDT Clinical Communication Virtual Review in [place], [place] 200 [place] [address] 02/05/2024 1:00 PM CDT Comprehensive Visit Department of Neurology in [address] [address] Arturo Barfield M.D. 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
--- OUTSIDE RECORDS SUMMARY | 2024-01-13 09:52 | XMS_ITS | Encounter Summary ---
Author Name Unknown Organization [facility] Address [address] [place] [address] Care Team Providers Care Drafting Instructor Name Role Phone Elsewhere, Pcp Primary Care Provider Unavailabl e Encounter Details Date Type Department Care Team (Late st Contact Info) Description 12/11/2023 Orders Only Department of Cardiovascular Medicine in [place], [place] [address] [place] [address] Jean Claude Kimball M.D. [address] [place] [address] Social History Tobacco Use Types Packs/Day Years [...] any clubs o r organizations such as voodoo groups, unions, fraternal or athletic groups, or [...] and heating? Not hard at all 01/11/2020 [facility] of Occupat ional Health - Occupational Stress [...] AM CDT Clinical Communication Virtual Review in [place], [place] [address] [place] [address] 02/05/2024 1:00 PM CDT Comprehensive Visit Department of Neurology in [place], [place] [address] [place] [phone] Arturo Barfield M.D. [address] [place] [phone] documented as of this encounter Visit Diagnoses Not on filedocumented in this encounter Additional Health Concerns Assessment Noted Time PHQ-9 Depression Total Score: 1 07/16/20 13 2:30 PM BODY PRESS OPERATOR documented as of this encounter Care Teams Drafting Instructor Relationship Specialty Start Date End Date Elsewhere, Pcp PCP - General Internal Medicine 10/07/23 documented as of this encounter
--- OUTSIDE RECORDS SUMMARY | 2024-01-13 09:52 | XMS_ITS | Encounter Summary ---
Author Name Unknown Organization [facility] Address [address] [place] [address] Care Team Providers Care Underwater Trapper Name Role Phone Elsewhere, Pcp Primary Care Provider Unavailabl e Reason for Visit * Outpatient (Routine) - Closed Specialty Diagnoses / Procedures Referred By Contac t Referred To Contact Cardiovascular Disease Jean Claude Kimball M.D. 200 [place] [address] [facility] Referral ID Status Reason Start Date Expiration Date Visits Re quested Visits Authorized [id number] Closed 11/28/2023 05/29/2025 1 1 Encounter Details Date Type Department Care Team (Latest Contact Info) Description 12/10/2023 2:00 PM CDT Office Visit Department of Cardiovascular Medicine in [place], [place] [address] [place] [phone] Jean Claude Kimball M.D. [address] [place] [phone] Fibrillation Atrial (AF) NOS (Primary Dx) Social [...] often do you attend chur ch or tenriism services? More than 4 times per year 01/11/2020 Do you belong to any clubs o r organizations such as yazdanism groups, unions, fraternal or athletic groups, or [...] Not hard at all 01/11/2020 [facility] of Occupat ional Health - [...] - Please send monitoring lab work to [place] per patient request - Please review the results of the home sleep study the patient completed and send [place] the records - If kidney function is [...] pleasant 83 y.o. male who presents to [facility] for recently discovered atrial [...] into AF on 10/18. He then saw [facility] for follow-up on 10/23. The plan made at that visit was to obtain an updated [place] TTE, home oximetry testing for sleep apnea, [...] if they were being sent over to [place]. He denies any issues with taking his [...] calculated 2-D linear ejection fraction 56% with geay-zs-rfrb variability. 3. Moderately enlarged left atrial size. [...] and sleep study results be forwarded to [place]. It will be important to treat any [...] Oscar Guillaume MD Department of Internal Medicine [place], [place] * Jean Claude Kimball M.D. - [...] AM CDT Clinical Communication Virtual Review in [place], [place] 200 [place] [address] 02/05/2024 1:00 PM CDT Comprehensive Visit Department of Neurology in [address] [phone] Arturo Barfield M.D. [address] [place] [phone] documented as of this encounter Results * Thyroid Function [place] (12/10/2023 3:41 PM CDT) TSH, Sensitive 1.6 0.3 - 4.2 mIU/L 12/10/2023 7:29 PM CDT DTL Blood (Blood, Venous) 12/10/2023 3:41 PM CDT 12/10/2023 4:09 PM CDT Jean Claude Kimball M.D. LAB BLOOD ADD-ON Performing Organization Address City/[facility]/ZIP Co de Phone Number [facility] [address] [place] [address], [facility] [address] [place] [address] * Hepatic Function Panel (12/10/2023 3:41 PM [...] Jean Claude Kimball M.D. LAB BLOOD ADD-ON [facility] 200 [place] [address], [facility] DTL [facility] 200 [place] [address] * (ABNORMAL) Basic Metabolic Panel (12/10/2023 3:41 [...] Jean Claude Kimball M.D. LAB BLOOD ADD-ON [facility] 200 [place] [address], [facility] DTL [facility] [address] [place] [address] documented in this encounter Visit Diagnoses Diagnosis Fibrillation Atrial (AF) NOS- Primary documented in this encounter Additional Health Concerns Assessment Noted Time PHQ-9 Depression Total Score: 1 07/16/ 13 2:30 PM ASSISTANT IN NURSING documented as of this encounter Care Teams Underwater Trapper Relationship Specialty Start Date End Date Elsewhere, Pcp PCP - General Internal Medicine 10/07/23 documented as of this encounter
--- OUTSIDE RECORDS SUMMARY | 2024-01-13 09:53 | XMS_ITS | Clinical Summary ---
Author Name Unknown Organization [facility] Address [place], [place] [address] Care Team Providers Care Assistant Nurse Manager Name Role Phone Edwige Negrete MD Primary Care Provider [phone] Allergies Active Allergy Reactions Criticality Noted Date [...] mg by mouth once daily. 05/07/2023 Active ammgtfrl-xyo-uazl- FA-vit K-lut 8 mg iron-400 mcg-50 mcg [...] Description 12/27/2023 1:05 PM CDT Ancillary Procedure [address] [phone] 12/27/2023 11:40 AM CDT Office Visit [facility] [address] [phone] Jimi Olson MD Facial Injury 12/27/2023 Travel 12/03/2023 11:30 AM CDT Office Visit [address] [phone] Alka Clinton DPM Foot Problem (Diabetic foot check) 12/03/2023 Travel 11/04/2023 10:00 AM LEAF STICKER Office Visit [address] [phone] Edwige Negrete MD [facility] F/U (Has been having heart flutters for three months and hasn't been able to get answers as to what it is. Has been to [place] several times) 11/04/2023 Travel 10/23/[address] [phone] Edwige Negrete MD OTHER from Last 3 Months Immunizations Name Administration Dates Next Due COVID-19 vaccine ([employer] 30mcg/0.3mL) MONALISA JUDGE 11/17/2020,10/27/2020 Hepatitis A (Adult) [...] history exists Medical Devices Implanted Type Area Toe Former [employer] Device Identifier Shelf Expiration Date Model / Serial / Lot Iol Stigma +19.5 [employer] Buy859 - [id number] Implanted:Qty: 1 on 10/04/2020 by Richard Simeon MD at [facility] Left: Eye [employer] 06/07/2021 [id number] / [id number] / Iol Stigma +18.5 [employer] Toric Wda178 - [id number] Implanted:Qty: 1 on 10/18/2020 by Richard Simeon MD at [facility] Right: Eye [employer] 08/06/2023 [id number] / [id number] / Procedures Procedure Name Priority Date/Time Associated [...] provider. EXAM: CT HEAD BRAIN WO LOCATION: [facility] DATE: 12/27/2023 INDICATION: Contusion Of Other Part [...] provider. EXAM: CT HEAD BRAIN WO LOCATION: [facility] DATE: 12/27/2023 INDICATION: Contusion Of Other Part [...] Comments Code Status Discussion: Discussed Care Teams Assistant Nurse Manager Relationship Specialty Start [place] [address] [place] [address] PCP - General Family Practice 08/12/20
--- OUTSIDE RECORDS SUMMARY | 2024-01-13 09:53 | XMS_ITS | Encounter Summary ---
Author Name Unknown Organization [facility] Address [address] [place] [address] Care Team Providers Care Wooden Fence Erector Name Role Phone Elsewhere, Pcp Primary Care Provider Unavailabl e Reason for Visit * Reason Comments Palpitations Encounter Details Date Type Department Care Team (Late st Contact Info) Description 10/18/2023 3:05 PM CYTOLOGY TEACHER - 10/18/2023 11:42 PM CYTOLOGY TEACHER Emergency [facility] [address] [place] [address] Newton Garcia M.D. [address] [place] [address] Atrial Fibrillation Unspecified (HCC) (Primary Dx) Discharge [...] any clubs o r organizations such as jainism groups, unions, fraternal or athletic groups, or [...] and heating? Not hard at all 01/11/2020 [facility] - [...] Comments Blood Pressure 149/94 10/18/2023 11:15 PM CYTOLOGY TEACHER Pulse 105 10/18/2023 11:15 PM CYTOLOGY TEACHER Temperature 36.7 ??C (98.1 ??F) 10/18/2023 3:55 PM CS T Respiratory Rate 15 10/18/2023 11:15 PM CYTOLOGY TEACHER Oxygen Saturation 95% 10/18/2023 11:15 PM CYTOLOGY TEACHER Inhaled Oxygen Concentration - - Weight - - Height - - Body Mass Index - - documented in this encounter Discharge Instructions * Discharge Instructions* Philippe Robertson M.D. - 10/18/2023 10:54 PM CYTOLOGY TEACHER Please return to the emergency department if you develop difficulties breathing, chest pain, lose consciousness, or any other signs or symptoms you find concerning. The respiratory care program director will reach out to you to schedule your follow up appointment with [facility]. Please keep your appointment with the cardiology team. LOGY TEACHER * Attachments The following attachments cannot be sent through Care Everywhere. * Atrial Fibrillation [id number] (Vietnamese) documented in this encounter Medications at Time of Discharge Medication Sig Dispensed Refills Start Date End Date Accu-Chek Guide Glucose Meter [facility] USE TO TEST BLOOD SUGARS TWICE DAILY [...] at multiple clinics hospital systems throughout the [facility], and has been unhappy withhis care so far, so he presented to [facility] to establish care. Patient notes that his home health aide today noticed that he was in atrial fibrillation with RVR. They called the [facility], and were able to get an appointment [...] Unspecified (HCC) Philippe Robertson M.D. Resident 10/19/2337 LOGY TEACHER * Newton Garcia M.D. - 10/18/2023 8:30 [...] at multiple clinics and hospitals throughout the [facility] has been dissatisfied. He presents today with [...] the resident. Newton Garcia M.D. 10/19/23 0139 LOGY TEACHER * Susan Garcia R.N. - 10/18/2023 3:53 [...] home health nurse. Susan Garcia RKrishan. 10/18/23 1554 LOGY TEACHER documented in this encounter Plan of Treatment Upcoming Encounters Date Type Department Care Team (Latest Contact Info) Description 01/29/2024 10:45 AM CDT Clinical Communication Virtual Review in [place], [place] [address] [place] [address] 02/05/2024 1:00 PM CDT Comprehensive Visit Department of Neurology in [address] [phone] Arturo Barfield M.D. [address] [place] [phone] documented as of this encounter Procedures Procedure Name Priority Date/Time Associated Diagnosis Comments DX CHEST AP OR PA AND LATERAL 2 VIEWS RAD - Semiurgent (Fast; most ED patients; some inpatients) 10/18/2023 8:46 PM CYTOLOGY TEACHER TROPONIN T, 2H/6H, 5TH GEN, P Timed 10/18/2023 5:13 PM CYTOLOGY TEACHER TROPONIN T, BASELINE, 5TH GEN, P STAT 10/18/2023 3:27 PM CYTOLOGY TEACHER NT-PRO B-TYPE NATRIURETIC PEPTIDE (BNP), S STAT 10/18/2023 3:27 PM CYTOLOGY TEACHER PROTHROMBIN TIME (PT), P STAT 10/18/2023 3:27 PM CYTOLOGY TEACHER CBC WITH DIFFERENTIAL, B STAT 10/18/2023 3:27 PM CYTOLOGY TEACHER THYROID-STIMULATIN G HORMONE-SENSITIVE (S-TSH) STAT 10/18/2023 3:27 PM CYTOLOGY TEACHER BASIC METABOLIC PANEL, S/P STAT 10/18/2023 3:27 PM CYTOLOGY TEACHER ECG STAT 10/18/2023 3:17 PM CYTOLOGY TEACHER documented in this encounter Results * DX Chest AP or PA and Lateral 2 Views (10/18/2023 8:46 PM CYTOLOGY TEACHER) Anatomical Region Laterality Modality Chest, Thoracic RST LOS, Tho racic ARZ LOS, Thoracic FLA LOS N/A Digital Radiography Impressions 10/19/2023 9:45 AM CYTOLOGY TEACHER Since chest CT from 09/12/2023, new small to moderate-sized left pleural effusion and tiny right effusion. Otherwise, allowing for differences in technique, no significant change. No focal consolidation or pneumothorax. Calcified granuloma in the right lung base in addition to a calcified right hilar lymph node. Aortic calcification. Enlargement of the cardiac silhouette. Narrative 10/19/2023 9:45 AM CYTOLOGY TEACHER EXAM: ??DX CHEST AP OR PA AND [...] T, 2h/6h, 5th Gen (10/18/2023 5:13 PM CYTOLOGY TEACHER) Troponin T, 2 hr, 5th gen 24(H) <=15 ng/L 10/18/2023 5:53 PM CYTOLOGY TEACHER [facility] 2H Delta -1 ng/L 10/18/2023 5:53 PM CYTOLOGY TEACHER [facility] 2H Delta Interp Not Changing 10/18/2023 5:53 PM CYTOLOGY TEACHER [facility] Troponin T, 6 hr, 5th gen CANCELED ng/L 10/18/2023 5:53 PM CYTOLOGY TEACHER [facility] Comment:Result canceled by t he ancillary. 6H Delta CANCELED ng/L 10/18/2023 5:53 PM CYTOLOGY TEACHER [facility] Comment:Result canceled by t he ancillary. 6H Delta % CANCELED % 10/18/2023 5:53 PM CYTOLOGY TEACHER [facility] Comment:Result canceled by t he ancillary. Blood (Blood, Venous) 10/18/2023 5:13 PM CYTOLOGY TEACHER 10/18/2023 5:28 PM CYTOLOGY TEACHER Narrative [facility] [place] - 10/18/2023 5:53 PM CYTOLOGY TEACHER Specimen Information: Specimen ID: [id number] Specimen Type: Blood Specimen Collection Start Date: 10/18/2023 ??5:13 PM Specimen Received Date: 10/18/2023 ??5:28 PM Specimen ID: [id number] Specimen Type: Blood Specimen Collection Start Date: 10/18/2023 ??5:53 PM Specimen Received Date: 10/18/2023 ??5:53 PM Janice Pierce P.A.-C., M.S. LAB BLOOD TRO [facility] [place] [address] [place], [place] [address]R [facility] [address] [place] [address] * (ABNORMAL) NT-Pro B-Type Natriuretic Peptide (BNP) (10/18/2023 3:27 PM CYTOLOGY TEACHER) Pathologist [facility] NT-Pro BNP 1599(H) <=540 pg/mL 10/18/2023 4:20 PM CYTOLOGY TEACHER [facility] Comment: NT-proBNP values less than 300 [...] failure. Blood (Blood, Venous) 10/18/2023 3:27 PM CYTOLOGY TEACHER 10/18/2023 3:32 PM CYTOLOGY TEACHER Janice Pierce P.A.-C., M.S. LAB BLOOD ADD -ON Performing Organization Address City/State/[facility] Co de Phone Number [facility] [place] [address] [place], [place] [id number] [place] [address] 200 [place] [address] * (ABNORMAL) Prothrombin Time (PT) (10/18/2023 3:27 PM CYTOLOGY TEACHER) Pathologist [facility] Prothrombin Time, P 23.8(H) 9.4 - 12.5 sec 10/18/2023 4:00 PM CYTOLOGY TEACHER DTL INR 2.1 0.9 - 1.1 10/18/2023 4:00 PM CYTOLOGY TEACHER DTL Comment: ----ADDITIONAL INFORMATION---- Standard intensity warfarin therapeutic range: 2.0 to 3.0 ?? High intensity warfarin therapeutic range: 2.5 to 3.5 Blood (Blood, Venous) 10/18/2023 3:27 PM CYTOLOGY TEACHER 10/18/2023 3:40 PM CYTOLOGY TEACHER Janice Pierce P.A.-C., M.S. LAB BLOOD ADD -ON Performing Organization Address City/State/[facility] Co de Phone Number [facility] [place] [address] [place], [place] [phone] [place] [address] [facility] [address] [place] [address] * (ABNORMAL) Troponin T, Baseline, 5th gen (10/18/2023 3:27 PM CYTOLOGY TEACHER) Pathologist [facility] Troponin T, Baseline, 5th gen 25(H) <=15 ng/L 10/18/2023 4:17 PM CYTOLOGY TEACHER [facility] Blood (Blood, Venous) 10/18/2023 3:27 PM CYTOLOGY TEACHER 10/18/2023 3:32 PM CYTOLOGY TEACHER Janice Pierce P.A.-C., M.S. LAB BLOOD TRO PONIN Performing Organization Address City/[facility]/ZIP Co de Phone Number [facility] [place] [address] [place], [place] [phone] [place], [place] [id number] [facility][note 2] [address] [place] [address] * S-TSH (Thyroid-Stimulating Hormone - Sensitive) (10/18/2023 3:27 PM CYTOLOGY TEACHER) Pathologist [facility] TSH, Sensitive 1.2 0.3 - 4.2 mIU/L 10/18/2023 4:16 PM CYTOLOGY TEACHER DT Blood (Blood, Venous) 10/18/2023 3:27 PM CYTOLOGY TEACHER 10/18/2023 3:51 PM CYTOLOGY TEACHER Janice Pierce P.A.-C., M.S. LAB BLOOD ADD -ON Performing Organization Address City/[facility]/ZIP Co de Phone Number [facility] [place] [address] [place] [address], [facility] [address] [place] [address] * (ABNORMAL) CBC with Differential, Blood (10/18/2023 3:27 PM CYTOLOGY TEACHER) Pathologist [facility] Hemoglobin 13.1(L) 13.2 - 16.6 g/dL 10/18/2023 3:39 PM CYTOLOGY TEACHER [facility] Hematocrit 40.1 38.3 - 48.6 % 10/18/2023 3:39 PM CYTOLOGY TEACHER [facility] Erythrocytes 4.24(L) 4.35 - 5.65 x10(12)/L 10/18/2023 3:39 PM CYTOLOGY TEACHER [facility] MCV 94.6 78.2 - 97.9 fL 10/18/2023 3:39 PM CYTOLOGY TEACHER [facility] RBC Distrib Width 12.7 11.8 - 14.5 % 10/18/2023 3:39 PM CYTOLOGY TEACHER [facility] Platelet Count 582(H) 135 - 317 x10(9)/L 10/18/2023 3:39 PM CYTOLOGY TEACHER [facility] Leukocytes 11.4(H) 3.4 - 9.6 x10(9)/L 10/18/2023 3:39 PM CYTOLOGY TEACHER [facility] Neutrophils 8.73(H) 1.56 - 6.45 x10(9)/L 10/18/2023 3:39 PM CYTOLOGY TEACHER [facility] Lymphocytes 1.86 0.95 - 3.07 x10(9)/L 10/18/2023 3:39 PM CYTOLOGY TEACHER [facility] Monocytes 0.67 0.26 - 0.81 x10(9)/L 10/18/2023 3:39 PM CYTOLOGY TEACHER [facility] Eosinophils 0.06 0.03 - 0.48 x10(9)/L 10/18/2023 3:39 PM CYTOLOGY TEACHER [facility] Basophils 0.07 0.01 - 0.08 x10(9)/L 10/18/2023 3:39 PM CYTOLOGY TEACHER [facility] Blood (Blood, Venous) 10/18/2023 3:27 PM CYTOLOGY TEACHER 10/18/2023 3:32 PM CYTOLOGY TEACHER Janice Pierce P.A.-C., M.S. LAB BLOOD ADD -ON [facility] [place] [address] [place] [address], [facility] STMA [facility][note 2] [address] [place] [address] [facility] [address] [place] [address] * (ABNORMAL) Basic Metabolic Panel (10/18/2023 3:27 PM CYTOLOGY TEACHER) Potassium, P 4.1 3.6 - 5.2 mmol/L 10/18/2023 4:19 PM CYTOLOGY TEACHER DTL Sodium, P 143 135 - 145 mmol/L 10/18/2023 4:19 PM CYTOLOGY TEACHER DTL Chloride, P 103 98 - 107 mmol/L 10/18/2023 4:19 PM CYTOLOGY TEACHER DTL Bicarbonate, P 25 22 - 29 mmol/L 10/18/2023 4:19 PM CYTOLOGY TEACHER DTL Anion Gap, P 15 7 - 15 10/18/2023 4:19 PM CYTOLOGY TEACHER DTL BUN (Blood Urea Nitrogen), P 25(H) 8 - 24 mg/dL 10/18/2023 4:19 PM CYTOLOGY TEACHER DTL Creatinine 1.56(H) 0.74 - 1.35 mg/dL 10/18/2023 4:19 PM CYTOLOGY TEACHER DTL Estimated GFR (eGFR) 44(L) >=60 mL/min/BSA 10/18/2023 4:19 PM CYTOLOGY TEACHER DTL Comment: Estimated GFR calculated using the 2020 CKD_EPI creatinine equation. Calcium, Total, P 9.6 8.8 - 10.2 mg/dL 10/18/2023 4:19 PM CYTOLOGY TEACHER DTL Glucose, P 190(H) 70 - 140 mg/dL 10/18/2023 4:19 PM CYTOLOGY TEACHER DTL Blood (Blood, Venous) 10/18/2023 3:27 PM CYTOLOGY TEACHER 10/18/2023 3:32 PM CYTOLOGY TEACHER Janice Pierce P.A.-C., M.S. LAB BLOOD ADD -ON [facility] [address] [place] [address], [facility] [address] [place] [address] * ECG 12 Lead (10/18/2023 3:17 PM CYTOLOGY TEACHER) Pathologist [facility] Ventricular Rate ECG/Min 134 BPM MUSE QRSD Interval 78 ms MUSE QT Interval 274 ms MUSE QTC Interval 409 ms MUSE R Camby -22 degrees MUSE T Wave Camby 155 degrees MUSE 10/18/2023 3:17 PM CYTOLOGY TEACHER 10/18/2023 3:21 PM CYTOLOGY TEACHER Impressions MUSE - 10/18/2023 3:21 PM CYTOLOGY TEACHER Atrial fibrillation with rapid ventricular response with [...] For 1 dose Given 10/18/2023 11:09 PM CYTOLOGY TEACHER 5 mg NaCl 0.9 % bolus 1,000 mL 1,000 mL, intravenous, at 1,000 mL/hr, Administer over 1 Hours, Once, On Sat10/18/23 at 2014, For 1 dose New Bag 10/18/2023 8:34 PM CYTOLOGY TEACHER 1,000 mL 100 0 mL/hr documented in this encounter Active and Recently Administered Medications Times are shown in CYTOLOGY TEACHER. Scheduled Medication Order 10/16/2023 10/17/2023 10/18/2023 metoprolol [...] Total Score: 1 07/16/20 13 2:30 PM CYTOLOGY TEACHER documented as of this encounter Care Teams Wooden Fence Erector Relationship Specialty Start Date End Date Elsewhere, Pcp PCP - General Internal Medicine 10/07/23 documented as of this encounter
--- OUTSIDE RECORDS SUMMARY | 2024-01-13 09:53 | XMS_ITS | Encounter Summary ---
Author Name Unknown Organization [facility] Address [address] [place] [address] Care Team Providers Care Cheese Factory Worker Name Role Phone Elsewhere, Pcp Primary Care Provider Unavailabl e Reason for Visit * Reason Onset Date Comments Pre-visit Intake 10/22/2023 Encounter Details Date Type Department Care Team (Latest Contact Info) Description 10/22/2023 4:45 PM SOCIAL SCIENTIST Clinical Communication Virtual Review in [place], [place] [address] [place] [address] Pre-visit Intake Social History Tobacco Use Types [...] at all 01/11/2020 [facility] Questionnaire Answer Date [...] AM CDT Clinical Communication Virtual Review in [place], [place] [address] [place] [address] 02/05/2024 1:00 PM CDT Comprehensive Visit Department of Neurology in [place], [place] [address] [place] [phone] Arturo Barfield M.D. [address] [place] [phone] documented as of this encounter Visit Diagnoses Not on filedocumented in this encounter Additional Health Concerns Assessment Noted Time PHQ-9 Depression Total Score: 1 07/16/20 13 2:30 PM SOCIAL SCIENTIST documented as of this encounter Care Teams Cheese Factory Worker Relationship Specialty Start Date End Date Elsewhere, Pcp PCP - General Internal Medicine 10/07/23 documented as of this encounter
--- OUTSIDE RECORDS SUMMARY | 2024-01-13 09:53 | XMS_ITS | Encounter Summary ---
Author Name Unknown Organization [facility] Address [address] [place] [address] Care Team Providers Care College Admissions Counselor Name Role Phone Elsewhere, Pcp Primary Care Provider Unavailabl e Reason for Visit * Reason Comments Irregular Heart Beat Encounter Details Date Type Department Care Team (Late st Contact Info) Description 10/07/2023 12:06 PM BOTTOM HOOP DRIVER - 10/07/2023 4:43 PM BOTTOM HOOP DRIVER Emergency [facility] Emergency Department [address] [place] [address] Jamin Maldonado M.D. [address] [place] [address] Fibrillation Atrial (AF) NOS (Primary Dx) Discharge [...] often do you attend chur ch or congregation services? More than 4 times per year [...] and heating? Not hard at all 01/11/2020 [facility] - [...] Comments Blood Pressure 119/78 10/07/2023 2:30 PM BOTTOM HOOP DRIVER Pulse 90 10/07/2023 2:30 PM BOTTOM HOOP DRIVER Temperature 36.7 ??C (98.1 ??F) 10/07/2023 12:[address] Respiratory Rate 18 10/07/2023 2:30 PM BOTTOM HOOP DRIVER Oxygen Saturation 97% 10/07/2023 2:30 PM BOTTOM HOOP DRIVER Inhaled Oxygen Concentration - - Weight 97 kg (213 lb 13.5 oz) 10/07/2023 12:09 P M BOTTOM HOOP DRIVER Height - - Body Mass Index 28.06 01/11/2020 10:07 AM CDT documented in this encounter Discharge Instructions * Discharge Instructions* Roxanne Abdul M.D. - 10/07/2023 3:36 PM BOTTOM HOOP DRIVER - If you develop recurrence of chest pain with shortness of breath, sweating, nausea or vomiting, you will need to be evaluated immediately. - We recommend continuing to follow with your Home Care Manager Rn for further management of your atrial fibrillation. OM HOOP DRIVER documented in this encounter Medications at Time of Discharge Medication Sig Dispensed Refills Start Date End Date Accu-Chek Guide Glucose [facility] USE TO TEST BLOOD SUGARS TWICE DAILY [...] have this patient undergo cardioversion in the [facility]. Informed him that we are completely booked in our cardioversion lab for least thenext 3 days in that since the patient does have a previously arranged appointment to get cardioversion in the [facility] 1st part of next week that he should continue with that plan. I discussed this afternoon with a new ED staff, Dr. Whaley I still agree with our morning recommendations. Have discussed with the patient and his and they are both in agreement and will proceed with plans to have this done next week in the [facility]. Impression: #1 Atrial fibrillation Plan: Undergo cardioversion next week as previously arranged in the [facility] OM HOOP DRIVER documented in this encounter ED Notes * [...] He has scheduled cardioversion next week through [facility]. He presents for a 2nd opinion of management and hold for expedited management at [facility]. Patient is hemodynamically and vitally stable. Overall, his presenting symptoms appear very similar tothose outlined in his admitting manager, Dr. Nicanor Klein's note from 09/23/2023. He [...] completed by his practitioner up in the [facility]. Anticipate discharge home. ED Course as of [...] (AF) NOS Jamin Maldonado M.D. 10/15/23 1557 OM HOOP DRIVER * Roxanne Abdul M.D. - 10/07/2023 1:36 PM CST SUBJECTIVE CHIEF COMPLAINT/REASON FOR VISIT Irregular Heart Beat HISTORY OF PRESENT ILLNESS 83-year-old male who presents for 2nd opinion regarding management of recently diagnosed atrial flutter. Medical comorbidities include hypertension, dyslipidemia, calcific coronary artery disease, type 2 diabetes mellitus, chronic pain. Patient follows with [facility] admitting manager, Nicanor Klein MD. About 8-9 weeks ago [...] well as hope for sooner cardioversion at [place] possible. Patient's has questions about amiodarone which [...] He has scheduled cardioversion next week through [facility]. He presents for a 2nd opinion of management and hold for expedited management at [facility]. Patient is hemodynamically and vitally stable. Overall, his presenting symptoms appear very similar to those outlined in his admitting manager, Dr. Nicanor Klein's note from 09/23/2023. He [...] home with already scheduled Cardiology follow-up through [place].Plan was discussed with patient and spouse. Final Diagnoses: as of 10/07/232000 Fibrillation Atrial (AF) NOS Roxanne Abdul M.D. Resident 10/07/23 2018 OM HOOP DRIVER * Jaqueline Restrepo R.N. - 10/07/2023 12:17 PM CST Patient presents to the Emergency Department with palpitations. Patient states symptoms have been present for almost two months. Patient reports intermittent dizziness and chest pain as well. Jaqueline Restrepo R.N. 10/07/23 1218 OM HOOP DRIVER documented in this encounter Plan of Treatment Upcoming Encounters Date Type Department Care Team (Latest Contact Info) Description 01/29/2024 10:45 AM CDT Clinical Communication Virtual Review in [address] [address] 02/05/2024 1:00 PM CDT Comprehensive Visit Department of Neurology in [address] [address] Arturo Barfield M.D. [address] [place] [phone] documented as of this encounter Procedures Procedure Name Priority Date/Time Associated Diagnosis Comments TROPONIN T, 2H/6H, 5TH GEN, P Timed 10/07/2023 2:56 PM BOTTOM HOOP DRIVER CBC WITH DIFFERENTIAL, B STAT 10/07/2023 12:40 PM BOTTOM HOOP DRIVER TROPONIN T, BASELINE, 5TH GEN, P STAT 10/07/2023 12:39 PM BOTTOM HOOP DRIVER NT-PRO B-TYPE NATRIURETIC PEPTIDE (BNP), S STAT 10/07/2023 12:39 PM BOTTOM HOOP DRIVER PROTHROMBIN TIME (PT), P STAT 10/07/2023 12:39 PM BOTTOM HOOP DRIVER MAGNESIUM, S STAT 10/07/2023 12:39 PM BOTTOM HOOP DRIVER BASIC METABOLIC PANEL, S/P STAT 10/07/2023 12:39 PM BOTTOM HOOP DRIVER ECG STAT 10/07/2023 12:16 PM BOTTOM HOOP DRIVER documented in this encounter Results * (ABNORMAL) Troponin T, 2h/6h, 5th Gen (10/07/2023 2:56 PM BOTTOM HOOP DRIVER) Troponin T, 2 hr, 5th gen 23(H) <=15 ng/L 10/07/2023 3:33 PM BOTTOM HOOP DRIVER STMA 2H Delta -5 ng/L 10/07/2023 3:33 PM BOTTOM HOOP DRIVER STMA 2H Delta Interp Indeterminate 10/07/2023 3:33 PM BOTTOM HOOP DRIVER ST[facility] Comment:Indeterminate delta, additional sample suggested Troponin T, 6 hr, 5th gen CANCELED ng/L 10/08/2023 1:06 PM BOTTOM HOOP DRIVER STMA Comment: Patient already discharged Result canceled by the ancillary. 6H Delta CANCELED ng/L 10/08/2023 1:06 PM BOTTOM HOOP DRIVER STMA Comment:Result canceled by t he ancillary. 6H Delta Interp CANCELED 10/08/2023 1:06 PM BOTTOM HOOP DRIVER STMA Comment:Result canceled by t he ancillary. Blood (Blood, Venous) 10/07/2023 2:56 PM BOTTOM HOOP DRIVER 10/07/2023 3:00 PM BOTTOM HOOP DRIVER Narrative [facility] - 10/08/2023 1:06 PM BOTTOM HOOP DRIVER Specimen Information: Specimen ID: [id number] Specimen Type: Blood Specimen Collection Start Date: 10/07/2023 ??2:56 PM Specimen Received Date: 10/07/2023 ??3:00 PM Specimen ID: [id number] Specimen Type: Blood Specimen Collection Start Date: 10/08/2023 ??1:06 PM Specimen Received Date: 10/08/2023 ??1:06 PM Irish Rutledge P.A.-C. LAB BLOOD TROPONI N [facility] [address] [place] [address], [facility] STMA [facility] [address] [place] [address] * (ABNORMAL) CBC with Differential, Blood (10/07/2023 12:40 PM BOTTOM HOOP DRIVER) Pathologist [facility] Hemoglobin 13.5 13.2 - 16.6 g/dL 10/07/2023 12:52 PM BOTTOM HOOP DRIVER STMA Hematocrit 41.1 38.3 - 48.6 % 10/07/2023 12:52 PM BOTTOM HOOP DRIVER ST[facility] Erythrocytes 4.36 4.35 - 5.65 x10(12)/L 10/07/2023 12:52 PM BOTTOM HOOP DRIVER ST[facility] MCV 94.3 78.2 - 97.9 fL 10/07/2023 12:52 PM BOTTOM HOOP DRIVER STMA RBC Distrib Width 12.6 11.8 - 14.5 % 10/07/2023 12:52 PM BOTTOM HOOP DRIVER ST[facility] Platelet Count 582(H) 135 - 317 x10(9)/L 10/07/2023 12:52 PM BOTTOM HOOP DRIVER ST[facility] Leukocytes 14.2(H) 3.4 - 9.6 x10(9)/L 10/07/2023 12:52 PM BOTTOM HOOP DRIVER STMA Neutrophils 12.28(H) 1.56 - 6.45 x10(9)/L 10/07/2023 12:51 PM BOTTOM HOOP DRIVER [facility] Lymphocytes 1.12 0.95 - 3.07 x10(9)/L 10/07/2023 12:52 PM BOTTOM HOOP DRIVER ST[facility] Monocytes 0.76 0.26 - 0.81 x10(9)/L 10/07/2023 12:52 PM BOTTOM HOOP DRIVER ST[facility] Eosinophils <0.03 0.03 - 0.48 x10(9)/L 10/07/2023 12:52 PM BOTTOM HOOP DRIVER STMA Basophils 0.04 0.01 - 0.08 x10(9)/L 10/07/2023 12:52 PM BOTTOM HOOP DRIVER [facility] Blood (Blood, Venous) 10/07/2023 12:40 PM BOTTOM HOOP DRIVER 10/07/2023 12:48 PM BOTTOM HOOP DRIVER Irish Rutledge P.A.-C. LAB BLOOD ADD-ON [facility] [address] [place] [address], [facility] [address] [place] [address] * (ABNORMAL) NT-Pro B-Type Natriuretic Peptide (BNP) (10/07/2023 12:39 PM BOTTOM HOOP DRIVER) NT-Pro BNP 1402(H) <=540 pg/mL 10/07/2023 1:15 PM BOTTOM HOOP DRIVER [facility] Comment: NT-proBNP values less than [...] failure. Blood (Blood, Venous) 10/07/2023 12:39 PM BOTTOM HOOP DRIVER 10/07/2023 12:48 PM BOTTOM HOOP DRIVER Irish Rutledge P.A.-C. LAB BLOOD ADD-ON [facility] [address] [place] [address], [facility] [address] [place] [address] * (ABNORMAL) Prothrombin Time (PT) (10/07/2023 12:39 PM BOTTOM HOOP DRIVER) Prothrombin Time, P 18.9(H) 9.4 - 12.5 sec 10/07/2023 12:55 PM BOTTOM HOOP DRIVER [facility] INR 1.7 0.9 - 1.1 10/07/2023 12:55 PM BOTTOM HOOP DRIVER [facility] Comment: ----ADDITIONAL INFORMATION---- Standard intensity warfarin therapeutic range: 2.0 to 3.0 ?? High intensity warfarin therapeutic range: 2.5 to 3.5 Blood (Blood, Venous) 10/07/2023 12:39 PM BOTTOM HOOP DRIVER 10/07/2023 12:48 PM BOTTOM HOOP DRIVER Irish aDleyCCuong LAB BLOOD ADD-ON [facility] [address] [place] [address], [facility] [address] [place] [address] * (ABNORMAL) Troponin T, Baseline, 5th gen (10/07/2023 12:39 PM BOTTOM HOOP DRIVER) Troponin T, Baseline, 5th gen 28(H) <=15 ng/L 10/07/2023 1:06 PM BOTTOM HOOP DRIVER [facility] Blood (Blood, Venous) 10/07/2023 12:39 PM BOTTOM HOOP DRIVER 10/07/2023 12:48 PM BOTTOM HOOP DRIVER Irish Rutledge P.A.-C. LAB BLOOD TROPONI N [facility] [address] [place] [address], [facility] [address] [place] [address] * Magnesium (10/07/2023 12:39 PM BOTTOM HOOP DRIVER) Magnesium, S 1.8 1.7 - 2.3 mg/dL 10/07/2023 1:31 PM BOTTOM HOOP DRIVER DTL Blood (Blood, Venous) 10/07/2023 12:39 PM BOTTOM HOOP DRIVER 10/07/2023 1:10 PM BOTTOM HOOP DRIVER Irish Rutledge P.A.-C. LAB BLOOD ADD-ON [facility] [address] [place] [address], [facility] DTL [facility] [address] [place] [address] * (ABNORMAL) Basic Metabolic Panel (10/07/2023 12:39 PM BOTTOM HOOP DRIVER) Potassium, P 4.1 3.6 - 5.2 mmol/L 10/07/2023 1:10 PM BOTTOM HOOP DRIVER STMA Sodium, P 137 135 - 145 mmol/L 10/07/2023 1:10 PM BOTTOM HOOP DRIVER [facility] Chloride, P 98 98 - 107 mmol/L 10/07/2023 1:10 PM BOTTOM HOOP DRIVER ST[facility] Bicarbonate, P 28 22 - 29 mmol/L 10/07/2023 1:10 PM BOTTOM HOOP DRIVER [facility] Anion Gap, P 11 7 - 15 10/07/2023 1:10 PM BOTTOM HOOP DRIVER [facility] BUN (Blood Urea Nitrogen), P 39(H) 8 - 24 mg/dL 10/07/2023 1:10 PM BOTTOM HOOP DRIVER STMA Creatinine 1.79(H) 0.74 - 1.35 mg/dL 10/07/2023 1:10 PM BOTTOM HOOP DRIVER STMA Estimated GFR (eGFR) 37(L) >=60 mL/min/BSA 10/07/2023 1:10 PM BOTTOM HOOP DRIVER STMA Comment: Estimated GFR calculated using the 2020 CKD_EPI creatinine equation. Calcium, Total, P 9.4 8.8 - 10.2 mg/dL 10/07/2023 1:10 PM BOTTOM HOOP DRIVER STMA Glucose, P 233(H) 70 - 140 mg/dL 10/07/2023 1:10 PM BOTTOM HOOP DRIVER STMA Blood (Blood, Venous) 10/07/2023 12:39 PM BOTTOM HOOP DRIVER 10/07/2023 12:48 PM BOTTOM HOOP DRIVER Irish Rutledge P.A.-C. LAB BLOOD ADD-ON [facility] [address] [place] [address], [facility] STMA [facility] [address] [place] [address] * ECG 12 Lead (10/07/2023 12:16 PM BOTTOM HOOP DRIVER) Ventricular Rate ECG/Min 94 BPM MUSE QRSD Interval 86 ms MUSE QT Interval 332 ms MUSE QTC Interval 415 ms MUSE R [place] -9 degrees MUSE T Wave [place] -34 degrees MUSE 10/07/2023 12:1 6 PM BOTTOM HOOP DRIVER 10/07/2023 12:39 PM BOTTOM HOOP DRIVER Impressions MUSE - 10/07/2023 12:39 PM BOTTOM HOOP DRIVER Atrial fibrillation with premature ventricular or aberrantly [...] Total Score: 1 07/16/20 13 2:30 PM BOTTOM HOOP DRIVER documented as of this encounter Care Teams College Admissions Counselor Relationship Specialty Start Date End Date Elsewhere, Pcp PCP - General Internal Medicine 10/07/23 documented as of this encounter
--- OUTSIDE RECORDS SUMMARY | 2024-01-13 09:53 | XMS_ITS | Encounter Summary ---
Author Name Unknown Organization [facility] Address [address] [place] [address] Care Team Providers Care Bill Adjuster Name Role Phone Elsewhere, Pcp Primary Care Provider Unavailabl e Reason for Visit * Reason Onset Date Comments Triage 10/07/2023 Encounter Details Date Type Department Care Team (Latest Contact Info) Description 10/07/2023 Clinical Communication Department of Cardiovascular Medicine in [place], [place] [address] [place] [address] Computer Game TesterTyson M.D. Triage Social History Tobacco Use Types [...] often do you attend chur ch or rastafari services? More than 4 times per year 01/11/2020 Do you belong to any clubs o r organizations such as religious groups, unions, fraternal or athletic groups, or [...] hard at all 01/11/2020 [facility] - Occupational Stress Questionnaire Answer Date Recorded [...] a 83 y.o. year old male from [address] [place] [address] [place] [address]. He is self referred for Extreme fatigue; Shortness of breath. Cardiac History A flutter Mod CAC per OS CTA Pertinent Medical/Surgical History HTN HLD DMT2 [facility] CV ED consult 10/07/2023 Dr. Mercado Was asked by ED staff this morning to come it on plans to have this patient undergo cardioversion in the [facility]. Informed him that we are completely booked in our cardioversion lab for least the next 3 days in that since the patient does have a previously arranged appointment to get cardioversion in the [facility] 1st part of next week that he should continue with that plan. I discussed this afternoon with a new ED staff, Dr. Whaley I still agree with our morning recommendations. Have discussed with the patient and his and they are both in agreement and will proceed with plans to have this done next week in the [facility]. Impression: #1 Atrial fibrillation Plan: Undergo cardioversion next week as previously arranged in the [facility] ED notes 10/07/2023 Dr. Abdul 83-year-old male who presents for 2nd opinion regarding management of recently diagnosed atrial flutter. Medical comorbidities include hypertension, dyslipidemia, calcific coronary artery disease, type 2 diabetes mellitus, chronic pain. Patient follows with [facility] edge grinder, Nicanor Klein MD. About 8-9 weeks ago [...] well as hope for sooner cardioversion at [facility]. Patient's has questions about amiodarone which patient has a relative on and asks why there is not a pill that can change patient's heart rhythm... Assessment and Plan Patient is an 83-year-old male who presents with atrial flutter rate controlled with atenolol and anticoagulated with rivaroxaban. He has scheduled cardioversion next week through [facility]. He presents for a 2nd opinion of management and hold for expedited management at [facility]. Patient is hemodynamically and vitally stable. Overall, his presenting symptoms appear very similar to those outlined in his edge grinder, Dr. Nicanor Klein's note from 09/23/2023. He [...] sinus rhythm with no acute ischemic changes. NV interval 194 ms. Assessment and Plan/Recommendations: # [...] CALCIFICATION: Moderate. Triage Determination Pending RIANNA review. ERTY STAFF ACCOUNTANT documented in this encounter Miscellaneous Notes * Telephone Encounter - Samra Tinsley - 10/07/2023 8:56 AM CST General Cardiology Triage Questionnaire Information gathered by [facility]ASS upon initial Appointment Request Self-Referral or Provider Referral: Self Referral Primary Cardiac Concern: Extreme fatigue Shortness of breathe When did your symptoms first start? Aug 16 ER at [place] Does anything make your symptoms better or [...] a 2nd opinion.. has other appts scheduled [facility] want to come here . Have you had any of the following cardiac tests/procedures within the last 2 [address]? [address] Scan (coronary calcium score, CT angiogram) , ECG/EKG, Echocardiogram, Heart Rhythm Monitor (holter monitor, event monitor, prolonged cardiac cath technologist, etc.) , and Stress Test Have you ever been diagnosed with any of the following: Heart Conditions: None diagnosed with heart flutter Breathing conditions: None Primary Care Provider: (name/facility) [facility] Computer Game Tester: (name/facility) Chitra Mejia Cardio Dr Klein Status of Records: (Requested, in Care Everywhere, etc.) Requested (no records available) Other: ERTY STAFF ACCOUNTANT documented in this encounter Plan of Treatment Upcoming Encounters Date Type Department Care Team (Latest Contact Info) Description 01/29/2024 10:45 AM CDT Clinical Communication Virtual Review in [place], [place] [address] [place] [address] 02/05/2024 1:00 PM CDT Comprehensive Visit Department of Neurology in [place], [place] [address] [place] [phone] Arturo Barfield M.D. [address] [place] [phone] documented as of this encounter Visit Diagnoses Not on filedocumented in this encounter Additional Health Concerns Assessment Noted Time PHQ-9 Depression Total Score: 1 07/16/20 13 2:30 PM PROPERTY STAFF ACCOUNTANT documented as of this encounter Care Teams Bill Adjuster Relationship Specialty Start Date End Date Elsewhere, Pcp PCP - General Internal Medicine 10/07/23 documented as of this encounter
--- OUTSIDE RECORDS SUMMARY | 2024-01-13 09:53 | XMS_ITS | Clinical Summary ---
Author Name Unknown Organization [facility] Address [address], [place] [address] Care Team Providers Care Malware Analyst Name Role Phone Unassigned, Provider Primary Care Provider Unava ilable Source Comments You are receiving this document as you are listed as the primary care provider,follow-up provider, or the patient has been referred to you for consultation.This is in compliance with the Medicare and[facility] EHR Incentive Program,which states Providers who transition their patient to another setting of careor provider of care or refers their patient to another provider of care shouldprovide summary care record for each transition of care or referral. [facility] Allergies No known active allergies [...] age to complete this topic Care Teams Malware Analyst Relationship Specialty Start Date End Date Unassigned, Provider [address] [place] [address] PCP - General 11/03/00
--- OUTSIDE RECORDS SUMMARY | 2024-01-13 09:53 | XMS_ITS | Encounter Summary ---
Author Name Unknown Organization [facility] Address [address] [place] [address] Care Team Providers Care Weaver Axminster Name Role Phone Elsewhere, Pcp Primary Care Provider Unavailabl e Reason for Referral * Outpatient (Routine) - Closed Specialty Diagnoses / Procedures Referred By Contac t Referred To Contact Diagnoses Atrial Fibrillation Other Persistent (HCC) Procedures DX Chest AP or PA and Lateral 2 Views Jean Claude Kimball M.D. [address] [place] [address] [facility] Referral ID Status Reason Start Date Expiration Date Visits Re quested Visits Authorized [id number] Closed 10/23/2023 10/22/2024 1 1 CIATE ACCOUNT EXECUTIVE * Outpatient (Routine) - Closed Specialty Diagnoses / Procedures Referred By Contac t Referred To Contact Diagnoses Atrial Fibrillation Other Persistent (HCC) Procedures Echo Transthoracic (TTE) Jean Claude Kimball M.D. [address] [place] [address] [facility] Referral ID Status Reason Start Date Expiration Date Visits Re quested Visits Authorized [id number] Closed 10/23/2023 10/22/2024 1 1 CIATE ACCOUNT EXECUTIVE Reason for Visit * Appointment Request (Routine) - Closed Specialty Diagnoses / Procedures Referred By Contac t Referred To Contact Cardiovascular Disease Diagnoses Pain Chest Shortness Of Breath Fatigue Flutter Atrial (HCC) Referral ID Status Reason Start Date Expiration Date Visits Re quested Visits Authorized [id number] Closed 10/07/2023 10/06/2024 1 1 Encounter Details Date Type Department Care Team (Latest Contact Info) Description 10/23/2023 9:00 AM ASSOCIATE ACCOUNT EXECUTIVE Comprehensive Visit Department of Cardiovascular Medicine in [place], [place] [address] [place] [address] Jean Claude Kimball M.D. [address] [place] [phone] Atrial Fibrillation Other Persistent (HCC) (Primary Dx); [...] often do you attend chur ch or quaker services? More than 4 times per year [...] and heating? Not hard at all 01/11/2020 [facility] [place] [facility] - Occupational Stress [...] Comments Blood Pressure 102/68 10/23/2023 8:50 AM ASSOCIATE ACCOUNT EXECUTIVE Pulse 71 10/23/2023 8:50 AM ASSOCIATE ACCOUNT EXECUTIVE Temperature - - Respiratory Rate - - Oxygen Saturation - - Inhaled Oxygen Concentration - - Weight 97.8 kg (215 lb 9.8 oz) 10/23/2023 8:50 A M ASSOCIATE ACCOUNT EXECUTIVE Height 180 cm (5' 10.87) 10/23/2023 8:50 AM ASSOCIATE ACCOUNT EXECUTIVE Body Mass Index 30.19 10/23/2023 8:50 AM ASSOCIATE ACCOUNT EXECUTIVE documented in this encounter Consult Notes * [...] we continue with a rhythm control strategy. CIATE ACCOUNT EXECUTIVE * Brandon Brothers M.B.B.S. - 10/23/2023 9:00 AM CST SUBJECTIVE Referring Provider: No ref. provider found Reason for Consultation: 1. Newly discovered atrial fibrillation (August 2023) status post cardioversion X 1 with reversion to AFib CHIEF COMPLAINT/REASON FOR CONSULT Fatigue HISTORY OF PRESENT ILLNESS Mr. Ilan Alaniz is a very pleasant 83 y.o. male who presents to [facility] for recently discovered atrial [...] 1.2) Cardiac History No personal history of [place]. Cardiovascular Risk Factors: 1. Smoking status: has [...] would recommend updating a transthoracic echocardiogram at [facility] to assess for structural heart disease. We [...] signed by: Eva Alejandro. 10/23/23 5:35 PM ASSOCIATE ACCOUNT EXECUTIVE CIATE ACCOUNT EXECUTIVE documented in this encounter Plan of Treatment Upcoming Encounters Date Type Department Care Team (Latest Contact Info) Description 01/29/2024 10:45 AM CDT Clinical Communication Virtual Review in [place], [place] [address] [place] [address] 02/05/2024 1:00 PM CDT Comprehensive Visit Department of Neurology in [place], [place] [address] [place] [phone] Arturo Barfield M.D. [address] [place] [phone] documented as of this encounter Procedures Procedure Name Priority Date/Time Associated Diagnosis Comments FERRITIN, S Routine 10/18/2023 3:21 PM ASSOCIATE ACCOUNT EXECUTIVE Atrial Fibrillation Other Persistent (HCC) Fatty Liver documented in this encounter Results * (TTE) 2D ECHO DOPPLER COLOR (10/24/2023 1:24 PM ASSOCIATE ACCOUNT EXECUTIVE) Ejection Fraction 56 MC CV EIMS Mid-Ascending [...] Laterality Modality Echocardiography 10/24/2023 12:1 8 PM ASSOCIATE ACCOUNT EXECUTIVE Impressions 10/24/2023 1:36 PM ASSOCIATE ACCOUNT EXECUTIVE LEFT VENTRICLE:Normal left ventricular chamber size. Normal left ventricular wall thickness. Calculated 2-D linear left ventricular ejection fraction 56% with lcmk-vb-mitd variability. No regional wall motion abnormalities. Indeterminate [...] the Order-Level Documents. Narrative 10/24/2023 1:36 PM ASSOCIATE ACCOUNT EXECUTIVE For the complete report, see the Order-Level Documents. Hemodynamics Heart Rate: 127 BPM Blood Pressure: 136 / 72 mmHg ECG: Atrial fibrillation, BPM 100-140 Final Impressions 1. Echocardiogram performed in the setting of atrial fibrillation with rapid ventricular rate; ??hemodynamics may be inaccurate. 2. Normal left ventricular chamber size, calculated 2-D linear ejection fraction 56% with prma-xo-tydg variability. 3. Moderately enlarged left atrial size. [...] size, calculated 2-D linear ejectionfraction 56% with ajmw-fe-sbzq variability. 3. Moderately enlarged left atrial size. [...] 2-D linear left ventricularejection fraction 56% with hhje-mt-godv variability. No regional wallmotion abnormalities. Indeterminate left [...] (ABNORMAL) Hepatic Function Panel (10/23/2023 11:54 AM ASSOCIATE ACCOUNT EXECUTIVE) Bilirubin, Total, S 0.5 0.0 - 1.2 mg/dL 10/23/2023 1:36 PM ASSOCIATE ACCOUNT EXECUTIVE DTL Bilirubin, Direct, S <0.2 0.0 - 0.3 mg/dL 10/23/2023 1:36 PM ASSOCIATE ACCOUNT EXECUTIVE DTL Aspartate Aminotransferase (AST), S 32 8 - 48 U/L 10/23/2023 1:36 PM ASSOCIATE ACCOUNT EXECUTIVE DTL Alanine Aminotransferase (ALT), S 104(H) 7 - 55 U/L 10/23/2023 1:36 PM ASSOCIATE ACCOUNT EXECUTIVE DTL Alkaline Phosphatase, S 77 40 - 129 U/L 10/23/2023 1:36 PM ASSOCIATE ACCOUNT EXECUTIVE DTL Albumin, S 3.7 3.5 - 5.0 g/dL 10/23/2023 1:36 PM ASSOCIATE ACCOUNT EXECUTIVE DTL Protein, Total, S 6.3 6.3 - 7.9 g/dL 10/23/2023 1:36 PM ASSOCIATE ACCOUNT EXECUTIVE DTL Blood (Blood, Venous) 10/23/2023 11:54 AM ASSOCIATE ACCOUNT EXECUTIVE 10/23/2023 12:31 PM ASSOCIATE ACCOUNT EXECUTIVE Jean Claude Kimball M.D. LAB BLOOD ADD-ON [address] [address], [facility] [place] [address] * DX Chest AP or PA and Lateral 2 Views (10/23/2023 11:30 AM ASSOCIATE ACCOUNT EXECUTIVE) Anatomical Region Laterality Modality Chest, Thoracic RST LOS, Tho racic ARZ LOS, Thoracic FLA LOS N/A Digital Radiography Impressions 10/23/2023 11:35 AM ASSOCIATE ACCOUNT EXECUTIVE Moderate left pleural effusion has decreased minimally in size since 10/18/2023. Very tiny right pleural effusion has also improved. Subsegmental atelectasis left base. Aortic calcification. Calcified granulomas in both lungs. Calcified right hilar node. Slight cardiac enlargement. Narrative 10/23/2023 11:35 AM ASSOCIATE ACCOUNT EXECUTIVE EXAM: ??DX CHEST AP OR PA AND [...] Abdomen and or Pelvis (10/23/2023 10:53 AM ASSOCIATE ACCOUNT EXECUTIVE) Anatomical Region Laterality Modality Abdomen, Pelvis, Abdominal R ST LOS, Abdominal ARZ LOS, Abdominal FLA LOS, Other N/A Computed Tomography Impressions 10/25/2023 8:06 AM ASSOCIATE ACCOUNT EXECUTIVE 1. Negative. No acute or suspicious findings. No significant change since 09/30/2013. 2. This OS examination was performed in conjunction with a CT of the chest, which will be re-reported separately if requested. Narrative 10/25/2023 8:06 AM ASSOCIATE ACCOUNT EXECUTIVE EXAM: ??INTERPRETATION OF OUTSIDE CT ABDOMEN AND OR PELVIS . Outside CT of the abdomen and pelvis with IV contrast dated 09/12/2023. COMPARISON: ??Outside CT 06/16/[address] [facility] [address] 09/30/2013. FINDINGS: ??Liver, pancreas, and adrenals [...] dated 09/12/2023. COMPARISON: Outside CT 06/16/[address] [facility] [address] 09/30/2013. FINDINGS: Liver, pancreas, and adrenals [...] PUL Home Overnight Oximetry (10/23/2023) 10/23/2023 Impressions [facility] 10/24/2023 1:58 PM ASSOCIATE ACCOUNT EXECUTIVE This is an overnight oximetry assumed to have been performed on room air as a completed questionnaire was not returned. ??Mean saturation of 94% with periods of oscillatory desaturation to as low as 82% noted during the study. ??Heart rate tracing suggests an arrhythmia. Impression: ??Abnormal. ??Desaturations concerning for a positional or sleep- related breathing disorder. ??Possible arrhythmia. Physician: Martin Humphries M.D. [id number] Narrative Procedure Note Martin Humphries M.D., Ph.D. [...] disorder. Possible arrhythmia. Physician: Martin Humphries M.D. [id number] Jean Claude Kimball M.D. PFT ORDERABLES [facility] * (ABNORMAL) Ferritin (10/18/2023 3:21 PM ASSOCIATE ACCOUNT EXECUTIVE) Ferritin, S 843(H) 31 - 409 mcg/L 10/23/2023 12:00 PM ASSOCIATE ACCOUNT EXECUTIVE DTL Blood (Blood, Venous) 10/18/2023 3:21 PM ASSOCIATE ACCOUNT EXECUTIVE 10/23/2023 11:22 AM ASSOCIATE ACCOUNT EXECUTIVE Jean Claude Kimball M.D. LAB BLOOD ADD-ON Performing Organization Address City/[facility]/ZIP Co de Phone Number [facility] [address] [place] [address], [facility] [address] [address] documented in this encounter Visit Diagnoses Diagnosis Atrial Fibrillation Other Persistent (HCC)- Primary Fatty Liver Atrial Fibrillation Other Persistent (HCC) Atrial Fibrillation Other Persistent (HCC) Atrial Fibrillation Other Persistent (HCC) Atrial Fibrillation Other Persistent (HCC) documented in this encounter Additional Health Concerns Assessment Noted Time PHQ-9 Depression Total Score: 1 07/16/20 13 2:30 PM ASSOCIATE ACCOUNT EXECUTIVE documented as of this encounter Care Teams Weaver Axminster Relationship Specialty Start Date End Date Elsewhere, Pcp PCP - General Internal Medicine 10/07/23 documented as of this encounter
--- OUTSIDE RECORDS SUMMARY | 2024-01-13 09:53 | XMS_ITS | Encounter Summary ---
Author Name Unknown Organization [facility] Address [address] [place] [address] Care Team Providers Care National Park Ranger Name Role Phone Elsewhere, Pcp Primary Care Provider Unavailabl e Reason for Visit * Reason Onset Date Comments OSM - Outside Materials 10/07/2023 OSM 10/07/2023 CVD Encounter Details Date Type Department Care Team (Latest Contact Info) Description 10/07/2023 Clinical Communication Department of Cardiovascular Medicine in [place], [place] [address] [place] [address] Provider, Unknown [facility]SM - Outside Materials; OSM [...] often do you attend chur ch or muslim services? More than 4 times per year 01/11/2020 Do you belong to any clubs o r organizations such as religion groups, unions, fraternal or athletic groups, or [...] AM CDT Clinical Communication Virtual Review in [place], [place] [address] [place] [address] 02/05/2024 1:00 PM CDT Comprehensive Visit Department of Neurology in [place], [place] [address] [place] [phone] Arturo Barfield M.D. [address] [place] [phone] documented as of this encounter Visit Diagnoses Not on filedocumented in this encounter Additional Health Concerns Assessment Noted Time PHQ-9 Depression Total Score: 1 07/16/20 13 2:30 PM FIRE SUPPRESSION CAPTAIN documented as of this encounter Care Teams National Park Ranger Relationship Specialty Start Date End Date Elsewhere, Pcp PCP - General Internal Medicine 10/07/23 documented as of this encounter
--- NOTE | 2024-01-13 10:15 | MR_ITS ---
Patient: OLGA SANTOS Facility:?[facility] Patient ID:?[id number] Site Patient ID:?[id number]. Site :?[id number] Study:?MRI-Head WO-01/13/2024 11:57:09 AM Ordering Physician:PELON Final Report: INDICATION: Fall. Unsteady gait. TECHNIQUE: Multiplanar multisequence noncontrast MR images of the brain. COMPARISON: None. FINDINGS: Moderate diffuse cerebral volume loss. No mass effect or midline shift. Few small FLAIR hyperintensities in the supratentorial white matter and enam, typical for mild chronic microvascular ischemic changes. No intracranial hemorrhage or pathologic extra-axial fluid collection. No diffusion restriction to suggest acute infarction. Hematoma in the anterior left frontal scalp. The major arterial flow voids at the skull base are preserved. Thinning of the ocular lenses. Very small right maxillary sinus retention cyst. Trace mastoid fluid bilaterally. IMPRESSION: 1. No acute intracranial abnormality. 2. Hematoma in the anterior left frontal scalp. 3. Moderate diffuse cerebral volume loss and mild chronic microvascular ischemic changes. Dictated by Tello Moraes MD @ 01/14/2024 6:56:34 AM Signed by:?Tello Moraes MD @01/14/2024 6:56:34 AM (Electronic Signature)
== END 2024-01-13 09:46 | disposition home or self-care (01) ==
LOC: MRI 09:47
PROVIDERS: PCP Family Medicine; Visit Provider Family Medicine
DX: R26.81 Unsteadiness on feet (principal); S00.03XA Contusion of scalp, initial encounter; I67.82 Cerebral ischemia; G96.9 Disorder of central nervous system, unspecified; R25.1 Tremor, unspecified
CPT/HCPCS: 70551